=== PATIENT | female | born 1960 | race Caucasian/White ===

== ENCOUNTER → 2017-06-24 08:39 | Outpatient (CLI) | payer OTHER, SELFPAY | PROVIDERS: PCP Nurse Practitioner Primary Care; Visit Provider Internal Medicine Pulmonary Disease | DX: J44.9 Chronic obstructive pulmonary disease, unspecified (principal) | CPT/HCPCS: 87070; 87077; 87102; 87205; 87206 ==

== ENCOUNTER → 2017-07-27 15:34 | Outpatient (CLI) | payer OTHER, SELFPAY ==
--- NOTE | 2017-07-27 15:37 | RAD_ITS ---
STUDY: X-RAY CHEST REASON FOR EXAM: Female, 56 years old. COPD TECHNIQUE: PA and lateral views of the chest. COMPARISON: None. FINDINGS: There is hyperinflation of the lungs consistent with chronic obstructive lung disease (COPD). There is no demonstrated pleural abnormality. Normal size heart. Normal mediastinum and elizabeth. Normal visualized pulmonary arteries. There is mild calcification of the aortic arch. There are diffuse degenerative changes of the visualized thoracic spine. Normal visualized ribs, clavicles, and shoulders. There is no demonstrated abnormality of the visualized soft tissue structures of the upper abdomen. RAD/Chest PA and Lateral IMPRESSION: COPD. No focal consolidation. Electronically Signed: Shayne Mckoy DO at 15:42 EDT Tel , Service support ,
== END ==
PROVIDERS: PCP Nurse Practitioner Primary Care; Visit Provider Internal Medicine Pulmonary Disease
DX: J44.9 Chronic obstructive pulmonary disease, unspecified (principal)
CPT/HCPCS: 71046

== ENCOUNTER → 2017-10-18 18:43 | Outpatient (CLI) | payer OTHER, SELFPAY ==
--- NOTE | 2017-10-18 18:45 | CT_ITS ---
STUDY: LOW DOSE CT LUNG CANCER SCREENING REASON FOR EXAM: Female, 56 years old. 45 pack-year smoker. Recently quit. RADIATION DOSAGE (If Supplied By Facility): CTDIvol = ( 4.02 ) mGy, DLP = ( 144.96 ) mGycm TECHNIQUE: No contrast was administered. Low dose technique was utilized (average mAS-38 and kVp 120). 1.25 mm axial source images with a slice interval of 1.25-mm were reconstructed in lung windows. 2.5 mm axial source images with a slice interval of 2.5-mm were reconstructed in lung windows. 5.0 mm axial source images with a slice interval of 5.0-mm were reconstructed in soft tissue windows. Nodule measured using lung windows on PACS and/or independent workstation with automated measurement of minimum and maximum diameter. Nodule measurement reported as average diameter rounded to the nearest whole number. Growth is defined as an increase ins size of greater than 1.5 mm. COMPARISON: None. NODULES: No significant nodular density seen. Emphysema: Hyperinflation. Mild increased markings in the anterior aspect of the right upper lobe as well as the medial aspect of the right middle lobe suggestive of scarring. Aorta: Scattered atherosclerotic calcific plaques of the aortic arch and descending thoracic aorta. Coronary arteries: Coronary artery calcification. Heart: Not enlarged. Mediastinal nodes: Small benign-appearing mediastinal lymph nodes. Other chest and abdominal findings: CT/Low Dose CT Lung Screening IMPRESSION: Lung-RADS category 2 - Continue annual screening with LDCT in 12 months. IMPORTANT NOTES FOR USE: ACR Lung-RADS Version 1.0 Assessment Categories Release Date: August 19, 2013 Category: Coded 0-4 bases on nodule(s) with highest degree of suspicion. Negative screen is defined as categories 1 and 2; a positive screen is defined as categories 3 and 4. Category 3 and 4A nodules that are unchanged on interval CT should be coded as category 2, and individuals returned to screening in 12 months. Category 4X: Category 3 or 4 nodules with additional imaging findings that increase the suspicion of lung cancer, such as spiculation, GGN that doubles in size in 1 year, enlarged lymph notes, etc. Category Modifiers: S (significant finding unrelated to lung cancer) and C (prior history of treated lung cancer) may be added to the 0-4 Lung-RADS Electronically Signed: Nathan Olivas MD at 8:25 EDT Tel [phone], Service support ,
== END ==
PROVIDERS: PCP Nurse Practitioner Primary Care; Visit Provider Internal Medicine Pulmonary Disease
DX: Z12.2 Encounter for screening for malignant neoplasm of respiratory organs (principal); Z87.891 Personal history of nicotine dependence
CPT/HCPCS: G0297

== ENCOUNTER 2018-01-15 14:30 | Outpatient (RCR) | payer OTHER, SELFPAY ==
[2018-01-02 08:31] VITALS: BP 128/64; PULSE 87; RESP 20; TEMP 36.2; BMI 46.1
--- NOTE | 2018-01-02 09:53 | PCM.WC.HP ---
(1) Traumatic open wound of lower leg Status: Acute Current Visit: Yes Qualifiers: Encounter type: initial encounter Code(s): S81.809A - Unspecified open wound, unspecified lower leg, initial encounter (2) Leg swelling Status: Chronic Current Visit: Yes Code(s): M79.89 - Other specified soft tissue disorders (3) Edema of leg Status: Chronic Current Visit: Yes Code(s): R60.0 - Localized edema (4) Diabetes mellitus Status: Chronic Current Visit: Yes Qualifiers: Diabetes mellitus type: type 2 Code(s): E11.9 - Type 2 diabetes mellitus without complications (5) Morbid obesity with BMI of 45.0-49.9, adult Status: Chronic Current Visit: No Code(s): E66.01 - Morbid (severe) obesity due to excess calories; Z68.42 - Body mass index (BMI) 45.0-49.9, adult (6) COPD (chronic obstructive pulmonary disease) Status: Chronic Current Visit: No Code(s): J44.9 - Chronic obstructive pulmonary disease, unspecified (7) Coronary artery arteriosclerosis Status: Chronic Current Visit: No Code(s): I25.10 - Atherosclerotic heart disease of [place] coronary artery without angina pectoris History of Present Illness Date of Service: 01/02/18 Chief Complaint: Traumatic open wound of the left lower extremity History of Wound: This is a 57-year-old diabetic female who was in her normal state of health until approximately 2 months ago. At that time, she sustained trauma to the anterolateral aspect of the left calf, striking her leg against the bed frame. A wound resulted, which has failed to heal in normal fashion. She subsequently struck her leg against the bed frame a second time, again injuring the left lower extremity in the same location. She claims to have chronic swelling in the left lower extremity, that precedes her current injury. She sleeps in a recumbent position at night. 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 Past Medical History Past Medical History: Chronic Problems Leg swelling (Chronic) Edema of leg (Chronic) Diabetes mellitus (Chronic) Morbid obesity with BMI of 45.0-49.9, adult (Chronic) COPD (chronic obstructive pulmonary disease) (Chronic) Coronary artery arteriosclerosis (Chronic) Past Medical History: The patient has a history of morbid obesity. She is diabetic. She has a history of chronic obstructive pulmonary disease. She also has a history of myocardial infarction in 2010, has had a coronary artery stent placed previously. Her history is negative for cancer, renal disease, thyroid disease, hyperlipidemia, and hypertension. Surgical History: - - The patient has a history of coronary artery stent placement. She has undergone open reduction and internal fixation of a left tibia fracture. She underwent right meniscus repair in the past. She is a Ab0. Allergies/Adverse Reactions: Allergies No Known Allergies Allergy (Verified 09/03/13 11:12) Home Medications: Ambulatory Orders Medication Instructions Recorded Aspirin E.C. [Ecotrin] 81 mg PO DAILY@0800 09/03/13 Hydrocodone/Acetaminophen [Vicodin 1 - 2 tablet PO Q6H PRN PRN 09/03/13 5-300 mg Tablet] Lisinopril [Lisinopril] 10 mg PO DAILY 09/03/13 Metformin [Metformin HCl] 1,000 mg PO BID 09/03/13 Metoprolol Tartrate [Metoprolol 50 mg PO DAILY 09/03/13 Tartrate] Dulaglutide [Trulicity] 0.75 mg SQ 01/02/18 Fluticasone/Vilanterol [Breo 1 each IH 01/02/18 Ellipta 200-25 Mcg INH] Insulin Glargine,Hum.rec.anlog 56 unit BID 01/02/18 [Lantus] Sitagliptin Phosphate [Januvia] 25 mg PO DAILY 01/02/18 Tiotropium [place] [Spiriva] 18 mcg IH 01/02/18 - Family History Paternal - - The patient's father at the age of 78 with history of chronic obstructive pulmonary disease. The patient's mother at the age of 84 with history of chronic obstructive pulmonary disease. Social History: Patient is single. She denies the use of tobacco products. She consumes alcoholic beverages occasionally. 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 Smoking Status: Former smoker Tobacco Use: Non-smoker Alcohol: Occasional Drugs: None Review of Systems Constitutional: Denies: Chills, Fever, Weight Change Eyes: Denies: Pain, Vision Change HEENT: Denies: Difficulty Hearing, Difficulty Swallowing, Sinus Congestion Cardiovascular: Denies: Chest Pain, Palpitations Respiratory: Denies: Cough, Shortness of Breath Gastrointestinal: Denies: Diarrhea, Nausea, Vomiting Genitourinary: Denies: Dysuria, Hematuria Endocrine: Denies: Heat/ Cold Intolerance, Polydipsia, Polyuria Hematologic/ Lymphatic: Denies: Easy Bruising, Easy Bleeding - Physical Exam Vital Signs Temp Pulse Resp BP 97.1 F L 87 20 H 128/64 H 01/02/18 08:31 18 08:31 18 08:31 01/02/18 08:31 General: Alert, Oriented x3, Cooperative, No apparent distress, Well developed, Well nourished, - - The patient appears morbidly obese HEENT: Atraumatic, PERRLA, EOMI, Normocephalic Oral: Moist Mucosa Neck: Supple, No JVD, Negative Carotid Bruits, Negative Hepatojugular Reflux, No Nodes, No Nuchal Rigidity, Trachea Midline Lungs: Clear to auscultation, Normal air movement, No rhonchi, No wheeze, No rales Cardiovascular: Regular rate, Regular Rhythm, Normal S1, Normal S2, No murmurs, No Ectopic Activity Abdomen: Soft, Non Tender, Non-Distended, Obese Extremities: No clubbing, No cyanosis, No edema, No Calf Tenderness, - - An open wound is noted on the anterolateral aspect of the left calf. It is circular in shape, with significant depth. Dimensions are documented elsewhere. The base of the wound is necrotic and with large amount of bioburden. Slight periwound erythema is noted. Swab cultures have been obtained, for both aerobic and anaerobic bacterial growth. Wound Measurements and Assessment WC - Nurse 1 - General Ulcer Measurement Start: 01/02/18 08:27 Freq: Status: Active Protocol: Activity Type Activity Date Activity User E-Sign Co-Sign Detail Recorded Client Recorded Date Recorded By Document 01/02/18 08:31 DL [id number] 01/02/18 08:55 DL 01/02/18 08:31 Wound Center Nurse 1 [Ulcer Assessment] #1 L Vaz -Current Size (cm) - Length 1.6 -Current Size (cm) - Width 1.8 -Current Size (cm) - Depth 0.6 -Total Square Cm 2.88 -Photo Taken Yes -Exudate Amt Medium (34-66%) -Exudate Type Serosanguineous -Wound Margin Distinct, Outline Attached -Granulation Amt None Present (0 %) -Slough/Fibrin No -Necrosis Amt Large (67-100%) -Necrotic Tissue Type Adherent Slough -Structure Exposed N/A -Texture (Ketty-wound Skin Appearance) Localized Edema -Moisture (Ketty-wound Skin Appearance No Abnormality ) -Color (Ketty-wound Skin Appearance) Hemosiderin Staining -Temperature (Ketty-wound Skin No Abnormality Appearance) (Pt Warm) -Ulcer Cleansing Wound Cleanser -Foul Odor after Cleansing No -Anesthetic Used 4% Lidocaine Solution [Edema Assessment] -Right Calf (cm) 41 -Right Ankle (cm) 24.3 -Left Calf (cm) 43.5 -Left Ankle (cm) 24 Musculoskeletal: No Muscle Wasting Neurological: Cranial nerves II-XII grossly intact, Neuro grossly intact Psych/Mental Status: Normal Affect, Appropriate, Alert and oriented to time, place, person, mood and affect Debridement Note Laterality: Left - Anterolateral calf Type of Debridement: Excisional debridement Anesthesia Used: 4% Lidocaine Solution Depth: Down to and including healthy tissue, in the subcutaneous layer Percentage of wound debrided: 100 Instrument Used: 5mm curette Severity: Fat Layer Exposed Amount of bleeding with debridement: Mild Bleeding Controlled with: Compression and gauze Patient tolerated procedure well Assessment/Plan Active Problems Traumatic open wound of lower leg (Acute) Leg swelling (Chronic) Edema of leg (Chronic) Diabetes mellitus (Chronic) Assessment: This is a 57-year-old female who presents with a traumatic wound on the anterolateral aspect of the left calf. The injury occurred approximately 2 months ago, and has failed to heal appropriately. The patient presents now with ralph, nonviable tissue within the wound itself. She is known to be a diabetic. Plan: We are to implement the use of collagenase Santyl topically, to provide enzymatic debridement. An excisional debridement has been performed today. The patient is to be instructed in the appropriate means of applying collagenase Santyl, and we will also use Nu Gauze to gently pack the wound daily as well. We are to obtain routine laboratory studies, including a CBC, conference of metabolic profile, serum prealbumin, and a hemoglobin A1c. A noninvasive lower extremity arterial study will also be obtained. We will await culture results. Patient will return in 1 week for reassessment. Influenza vaccine was not administered today. The patient is not a smoker. Patient weighs 265 pounds. She stands 5 feet 4 inches tall. Her BMI is 45.5, which places her in a class III category. Weight loss has been recommended, and collaboration with the patient's primary care physician has been recommended.
[2018-01-08 14:38] VITALS: BP 149/68; PULSE 106; RESP 18; TEMP 36.7; BMI 46.1
--- NOTE | 2018-01-08 15:30 | HP.PCM_ITS ---
(1) Traumatic open wound of lower leg Status: Acute Current Visit: Yes Qualifiers: Encounter type: subsequent encounter Code(s): S81.809A - Unspecified open wound, unspecified lower leg, initial encounter (2) Leg swelling Status: Chronic Current Visit: Yes Code(s): M79.89 - Other specified soft tissue disorders (3) Edema of leg Status: Chronic Current Visit: Yes Code(s): R60.0 - Localized edema (4) Diabetes mellitus Status: Chronic Current Visit: Yes Qualifiers: Diabetes mellitus type: type 2 Code(s): E11.9 - Type 2 diabetes mellitus without complications (5) Morbid obesity with BMI of 45.0-49.9, adult Status: Chronic Current Visit: No Code(s): E66.01 - Morbid (severe) obesity due to excess calories; Z68.42 - Body mass index (BMI) 45.0-49.9, adult (6) COPD (chronic obstructive pulmonary disease) Status: Chronic Current Visit: No Code(s): J44.9 - Chronic obstructive pulmonary disease, unspecified (7) Coronary artery arteriosclerosis Status: Chronic Current Visit: No Code(s): I25.10 - Atherosclerotic heart disease of [place] coronary artery without angina pectoris History of Present Illness Date of Service: 01/08/18 Chief Complaint: Traumatic open wound of the left lower extremity History of Wound: This is a 57-year-old diabetic female who was in her normal state of health until approximately 2 months prior to presentation. At that time, she sustained trauma to the anterolateral aspect of the left calf, striking her leg against the bed frame. A wound resulted, which has failed to heal in normal fashion. She subsequently struck her leg against the bed frame a second time, again injuring the left lower extremity in the same location. She claims to have chronic swelling in the left lower extremity, that precedes her current injury. She sleeps in a recumbent position at night. 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 Past Medical History Past Medical History: Chronic Problems Leg swelling (Chronic) Edema of leg (Chronic) Diabetes mellitus (Chronic) Morbid obesity with BMI of 45.0-49.9, adult (Chronic) COPD (chronic obstructive pulmonary disease) (Chronic) Coronary artery arteriosclerosis (Chronic) Surgical History: - - The patient has a history of coronary artery stent placement. She has undergone open reduction and internal fixation of a left tibia fracture. She underwent right meniscus repair in the past. She is a Ab0. Allergies/Adverse Reactions: Allergies No Known Allergies Allergy (Verified 09/03/13 11:12) Home Medications: Ambulatory Orders Medication Instructions Recorded Aspirin E.C. [Ecotrin] 81 mg PO DAILY@0800 09/03/13 Hydrocodone/Acetaminophen [Vicodin 1 - 2 tablet PO Q6H PRN PRN 09/03/13 5-300 mg Tablet] Lisinopril [Lisinopril] 10 mg PO DAILY 09/03/13 Metformin [Metformin HCl] 1,000 mg PO BID 09/03/13 Metoprolol Tartrate [Metoprolol 50 mg PO DAILY 09/03/13 Tartrate] Dulaglutide [Trulicity] 0.75 mg SQ 01/02/18 Fluticasone/Vilanterol [Breo 1 each IH 01/02/18 Ellipta 200-25 Mcg INH] Insulin Glargine,Hum.rec.anlog 56 unit BID 01/02/18 [Lantus] Sitagliptin Phosphate [Januvia] 25 mg PO DAILY 01/02/18 Tiotropium [place] [Spiriva] 18 mcg IH 01/02/18 - Family History Paternal - - The patient's father at the age of 78 with history of chronic obstructive pulmonary disease. The patient's mother at the age of 84 with history of chronic obstructive pulmonary disease. Smoking Status: Former smoker Tobacco Use: Non-smoker Alcohol: Occasional Drugs: None Review of Systems Constitutional: Denies: Chills, Fever, Weight Change Eyes: Denies: Pain, Vision Change HEENT: Denies: Difficulty Hearing, Difficulty Swallowing, Sinus Congestion Cardiovascular: Denies: Chest Pain, Palpitations Respiratory: Denies: Cough, Shortness of Breath Gastrointestinal: Denies: Diarrhea, Nausea, Vomiting Genitourinary: Denies: Dysuria, Hematuria Endocrine: Denies: Heat/ Cold Intolerance, Polydipsia, Polyuria Hematologic/ Lymphatic: Denies: Easy Bruising, Easy Bleeding - Physical Exam Vital Signs Temp Pulse Resp BP 98.0 F 106 H 18 149/68 H 01/08/18 14:38 01/08/18 14:38 01/08/18 14:38 01/08/18 14:38 General: Alert, Oriented x3, Cooperative, No apparent distress, Well developed, Well nourished HEENT: Atraumatic, PERRLA, EOMI, Normocephalic Oral: Moist Mucosa Neck: No JVD Lungs: Normal air movement Abdomen: Non-Distended Extremities: No clubbing, No cyanosis, No Calf Tenderness, - - Mild swelling and edema are noted in the left lower extremity. The traumatic wound on the anterolateral aspect of the left calf persists, and is little changed in size. The wound itself demonstrates less nonviable tissue and bioburden. There is evidence of granulation tissue in a small portion of the wound, which was not previously evident. Dimensions are documented elsewhere. Skin: No rashes Wound Measurements and Assessment WC - Nurse 1 - General Ulcer Measurement Start: 01/02/18 08:27 Freq: Status: Active Protocol: Activity Type Activity Date Activity User E-Sign Co-Sign Detail Recorded Client Recorded Date Recorded By Document 01/08/18 14:38 [id number] 01/08/18 14:43 01/08/18 14:38 Wound Center Nurse 1 [Ulcer Assessment] #1 L Vaz -Combined with other wound No -Current Size (cm) - Length 1.6 -Current Size (cm) - Width 2.1 -Current Size (cm) - Depth 0.4 -Total Square Cm 3.36 -Photo Taken No -Epithelialization Small 1-33% -Tunneling No -Undermining/Tunneling No -Circular Undermining No -Exudate Amt Medium (34-66%) -Exudate Type Serosanguineous -Wound Margin Flat & Intact -Granulation Amt Small (1-33%) -Granulation Quality Pale [place] -Slough/Fibrin Yes -Necrosis Amt Medium (34-66%) -Necrotic Tissue Type Adherent Slough -Structure Exposed N/A -Texture (Ketty-wound Skin Appearance) Assessed Localized Edema -Moisture (Ketty-wound Skin Appearance Assessed ) Dry/Scaly -Color (Ketty-wound Skin Appearance) Assessed -Temperature (Ketty-wound Skin No Abnormality Appearance) (Pt Warm) -Tenderness on Palpation (Ketty-wound No Skin Appearance) -Ulcer Cleansing Rinsed/ Irrigated with Saline -Foul Odor after Cleansing No -Anesthetic Used 4% Lidocaine Solution [Edema Assessment] -Lower Limb Edema Present Yes -Left Calf (cm) 43.9 -Left Ankle (cm) 24.3 - Nurse 2 - General Ulcer CM Notes Start: 01/02/18 08:27 Freq: Status: Active Protocol: Activity Type Activity Date Activity User E-Sign Co-Sign Detail Recorded Client Recorded Date Recorded By Document 01/08/18 15:02 [id number] 01/08/18 15:05 01/08/18 15:02 Wound Center Nurse 2 [Procedure/Treatment] #1 L Vaz -Time 15:02 -Correct Patient Yes -Correct Side, Site, Position Yes -Correct Procedure Yes -Procedure Performed Yes -Type of Procedure Debridement -Clinical Debridement Subcutaneous -Post Debridement Size (cm) - Length 1.6 -Post Debridement Size (cm) - Width 2.1 -Post Debridement Size (cm) - Depth 0.4 -Total Square Cm 3.36 -Wound/Ulcer Outcome Not Healed -Ulcer Cleansing Not Cleansed -Foul Odor after Cleansing No -Bioengineered Tissue No -Bleeding Controlled with Pressure -Treatment Response Procedure Tolerated Well [See Physician Procedure note for Specifics] Pain Scale: 0-10 Numeric [Pain] -Is Patient Pain Free? No Musculoskeletal: No Muscle Wasting Neurological: Cranial nerves II-XII grossly intact, Neuro grossly intact Psych/Mental Status: Normal Affect, Appropriate, Alert and oriented to time, place, person, mood and affect Debridement Note Post-Debridement Measurements/Treatment - Nurse 2 - General Ulcer CM Notes Start: 01/02/18 08:27 Freq: Status: Active Protocol: Activity Type Activity Date Activity User E-Sign Co-Sign Detail Recorded Client Recorded Date Recorded By Document 01/02/18 09:55 [id number] 01/02/18 09:59 Document 01/08/18 15:02 [id number] 01/08/18 15:05 01/02/18 01/08/18 09:55 15:02 Wound Center Nurse 2 #1 L Vaz -Time 09:55 15:02 -Correct Patient Yes Yes -Correct Side, Site, Position Yes Yes -Correct Procedure Yes Yes -Procedure Performed Yes Yes -Type of Procedure Debridement Debridement -Clinical Debridement Subcutaneous Subcutaneous -Post Debridement Size (cm) - Length 1.7 1.6 -Post Debridement Size (cm) - Width 2.1 2.1 -Post Debridement Size (cm) - Depth 0.5 0.4 -Total Square Cm 3.57 3.36 -Wound/Ulcer Outcome Not Healed Not Healed -Ulcer Cleansing Rinsed/ Not Cleansed Irrigated with Saline -Foul Odor after Cleansing No No -Bioengineered Tissue No No -Topical Lidocaine (%) 5 -Bleeding Controlled with NA Pressure -Treatment Response Procedure Procedure Tolerated Well Tolerated Well Pain Scale: 0-10 Numeric Is Patient Pain Free? Yes No Laterality: Left - Anterolateral calf Type of Debridement: Excisional debridement Anesthesia Used: 4% Lidocaine Solution Depth: Down to and including healthy tissue, in the subcutaneous layer Percentage of wound debrided: 100 Instrument Used: 7mm curette Severity: Fat Layer Exposed Amount of bleeding with debridement: Mild Bleeding Controlled with: Compression and gauze Patient tolerated procedure well Assessment/Plan Active Problems Traumatic open wound of lower leg (Acute) Leg swelling (Chronic) Edema of leg (Chronic) Diabetes mellitus (Chronic) Assessment: This is a 57-year-old female who presents with a traumatic wound on the anterolateral aspect of the left calf. The injury occurred approximately 2 months prior to presentation, and has failed to heal appropriately. The patient presented with ralph, nonviable tissue within the wound itself. She is known to be a diabetic. Patient has undergone a battery of diagnostic tests, with results as follows: Glucose 150, sodium 140, potassium 4.8, chloride 103, BUN 15, creatinine 0.80, calcium 9.5, total protein 6.7, albumin 3.9, alkaline phosphatase 61, AST 20, ALT 35, hemoglobin A1c 8.3, white blood count 6.2, hemoglobin 14.2, hematocrit 41.1, platelets 253,000. The patient's cultures were positive for Klebsiella pneumonia, pseudomonas aeruginosa, and Streptococcus. She was placed on Levaquin 750 mg p.o. daily for a total of 10 days, and is in the midst of her prescription. Plan: We are to continue the use of collagenase Santyl topically, to provide enzymatic debridement. An excisional debridement has been performed today. The patient has been instructed in the appropriate means of applying collagenase Santyl, and we will also use Nu Gauze to gently pack the wound daily as well. A noninvasive lower extremity arterial study will also be obtained, and is scheduled for 1 week from today. Patient will return in 1 week for reassessment. Influenza vaccine was not administered today. The patient is not a smoker. Patient weighs 265 pounds. She stands 5 feet 4 inches tall. Her BMI is 45.5, which places her in a class III category. Weight loss has been recommended, and collaboration with the patient's primary care physician has been recommended.
--- NOTE | 2018-01-15 07:49 | VDLE_ITS ---
Reason For Study: PVD RIGHT LEFT FV is compressible, spontaneous, phasic, POP V is compressible, spontaneous, phasic, competent and demonstrates normal competent and demonstrates normal augmentation. augmentation. POP V is compressible, spontaneous, phasic, T/P Trunk is compressible. competent and demonstrates normal PTV is compressible. augmentation. LT PerV is compressible. T/P Trunk is compressible. CFV, SFJ and FV spontaneous, phasic, PTV is compressible. competent and demonstrates normal RT PerV is compressible. augmentation. Pt unable to tolerate CFV and SFJ spontaneous, phasic, competent compression; relied on color and pulsed and demonstrates normal augmentation. Pt doppler. unable to tolerate compression; relied on color and pulsed doppler. SFJ is competent. GSV above knee is competent. SFJ is competent. GSV below the knee is incompetent for GSV is competent. greater than 0.5 seconds with a diameter of SSV is competent. 0.28 x 0.30 cm. Procedure SSV is competent. Exam performed in department. A preliminary report was called and/or faxed to . Interpretation Summary Deep veins of the lower extremities appear patent bilaterally. There is no evidence of deep vein thrombosis on either side. Valvular competence appears intact within the proximal deep venous systems bilaterally. The greater saphenous veins appear bilaterally patent and compressible segmentally. Sapheno-femoral junctions are bilaterally competent . The right greater saphenous vein appears segmentally competent. The left greater saphenous vein appears competent above the knee. The left greater saphenous vein appears incompetent below the knee. Small saphenous veins are patent and competent bilaterally. Ordering Physician: Xavier Acuña Performed By: Felecia Guzman RVT, RDCS and Student
[2018-01-15 14:25] VITALS: BP 129/79; PULSE 101; RESP 18; TEMP 35.9; BMI 46.1
--- NOTE | 2018-01-15 15:01 | PCM.WC.HP ---
(1) Traumatic open wound of lower leg Status: Acute Current Visit: Yes Qualifiers: Encounter type: subsequent encounter Laterality: left Qualified Code(s): S81.802D - Unspecified open wound, left lower leg, subsequent encounter Code(s): S81.809A - Unspecified open wound, unspecified lower leg, initial encounter (2) Leg swelling Status: Chronic Current Visit: Yes Code(s): M79.89 - Other specified soft tissue disorders (3) Edema of leg Status: Chronic Current Visit: Yes Code(s): R60.0 - Localized edema (4) Diabetes mellitus Status: Chronic Current Visit: Yes Qualifiers: Diabetes mellitus type: type 2 Code(s): E11.9 - Type 2 diabetes mellitus without complications (5) Morbid obesity with BMI of 45.0-49.9, adult Status: Chronic Current Visit: No Code(s): E66.01 - Morbid (severe) obesity due to excess calories; Z68.42 - Body mass index (BMI) 45.0-49.9, adult (6) COPD (chronic obstructive pulmonary disease) Status: Chronic Current Visit: No Code(s): J44.9 - Chronic obstructive pulmonary disease, unspecified (7) Coronary artery arteriosclerosis Status: Chronic Current Visit: No Code(s): I25.10 - Atherosclerotic heart disease of circle coronary artery without angina pectoris History of Present Illness Date of Service: 01/15/18 Chief Complaint: Traumatic open wound of the left lower extremity History of Wound: This is a 57-year-old diabetic female who was in her normal state of health until approximately 2 months prior to presentation. At that time, she sustained trauma to the anterolateral aspect of the left calf, striking her leg against the bed frame. A wound resulted, which has failed to heal in normal fashion. She subsequently struck her leg against the bed frame a second time, again injuring the left lower extremity in the same location. She claims to have chronic swelling in the left lower extremity, that precedes her current injury. She sleeps in a recumbent position at night. 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 Past Medical History Past Medical History: Chronic Problems Leg swelling (Chronic) Edema of leg (Chronic) Diabetes mellitus (Chronic) Morbid obesity with BMI of 45.0-49.9, adult (Chronic) COPD (chronic obstructive pulmonary disease) (Chronic) Coronary artery arteriosclerosis (Chronic) Surgical History: - - The patient has a history of coronary artery stent placement. She has undergone open reduction and internal fixation of a left tibia fracture. She underwent right meniscus repair in the past. She is a Ab0. Allergies/Adverse Reactions: Allergies No Known Allergies Allergy (Verified 09/03/13 11:12) Home Medications: Ambulatory Orders Medication Instructions Recorded Aspirin E.C. [Ecotrin] 81 mg PO DAILY@0800 09/03/13 Hydrocodone/Acetaminophen [Vicodin 1 - 2 tablet PO Q6H PRN PRN 09/03/13 5-300 mg Tablet] Lisinopril [Lisinopril] 10 mg PO DAILY 09/03/13 Metformin [Metformin HCl] 1,000 mg PO BID 09/03/13 Metoprolol Tartrate [Metoprolol 50 mg PO DAILY 09/03/13 Tartrate] Dulaglutide [Trulicity] 0.75 mg SQ 01/02/18 Fluticasone/Vilanterol [Breo 1 each IH 01/02/18 Ellipta 200-25 Mcg INH] Insulin Glargine,Hum.rec.anlog 56 unit BID 01/02/18 [Lantus] Sitagliptin Phosphate [Januvia] 25 mg PO DAILY 01/02/18 Tiotropium [place] [Spiriva] 18 mcg IH 01/02/18 - Family History Paternal - - The patient's father at the age of 78 with history of chronic obstructive pulmonary disease. The patient's mother at the age of 84 with history of chronic obstructive pulmonary disease. Smoking Status: Former smoker Tobacco Use: Non-smoker Alcohol: Occasional Drugs: None Review of Systems Constitutional: Denies: Chills, Fever, Weight Change Eyes: Denies: Pain, Vision Change HEENT: Denies: Difficulty Hearing, Difficulty Swallowing, Sinus Congestion Cardiovascular: Denies: Chest Pain, Palpitations Respiratory: Denies: Cough, Shortness of Breath Gastrointestinal: Denies: Diarrhea, Nausea, Vomiting Genitourinary: Denies: Dysuria, Hematuria Endocrine: Denies: Heat/ Cold Intolerance, Polydipsia, Polyuria Hematologic/ Lymphatic: Denies: Easy Bruising, Easy Bleeding - Physical Exam Vital Signs Temp Pulse Resp BP 96.7 F L 101 H 18 129/79 H 01/15/18 14:25 01/15/18 14:25 01/15/18 14:25 01/15/18 14:25 General: Alert, Oriented x3, Cooperative, No apparent distress, Well developed, Well nourished HEENT: Atraumatic, PERRLA, EOMI, Normocephalic Oral: Moist Mucosa Neck: No JVD Lungs: Normal air movement Abdomen: Non-Distended Extremities: No clubbing, No cyanosis, No Calf Tenderness, - - Only slight swelling and edema is noted in the lower extremities bilaterally. The traumatic wound on the left anterolateral tibial surface persists, little changed in size. There is evidence of increasing granulation tissue. Nonetheless, there remains a significant amount of nonviable tissue and bioburden. There is no obvious sign of infection or cellulitis. Wound dimensions are documented elsewhere. Skin: No rashes Wound Measurements and Assessment WC - Nurse 1 - General Ulcer Measurement Start: 01/02/18 08:27 Freq: Status: Active Protocol: Activity Type Activity Date Activity User E-Sign Co-Sign Detail Recorded Client Recorded Date Recorded By Document 01/15/18 14:25 DL [id number] 01/15/18 14:32 DL 01/15/18 14:25 Wound Center Nurse 1 [Ulcer Assessment] #1 L Vaz -Current Size (cm) - Length 1.6 -Current Size (cm) - Width 2 -Current Size (cm) - Depth 0.4 -Total Square Cm 3.2 -Photo Taken No -Exudate Amt Small (1-33%) -Exudate Type Serosanguineous -Wound Margin Distinct, Outline Attached -Granulation Amt Medium (34-66%) -Granulation Quality Red -Necrosis Amt Medium (34-66%) -Necrotic Tissue Type Adherent Slough -Structure Exposed N/A -Texture (Ketty-wound Skin Appearance) No Abnormality -Moisture (Ketty-wound Skin Appearance No Abnormality ) -Color (Ketty-wound Skin Appearance) No Abnormality -Temperature (Ketty-wound Skin No Abnormality Appearance) (Pt Warm) -Ulcer Cleansing Rinsed/ Irrigated with Saline -Foul Odor after Cleansing No -Anesthetic Used 5% Lidocaine Gel [Edema Assessment] -Left Calf (cm) 43.8 -Left Ankle (cm) 24 WC - Nurse 2 - General Ulcer CM Notes Start: 01/02/18 08:27 Freq: Status: Active Protocol: Activity Type Activity Date Activity User E-Sign Co-Sign Detail Recorded Client Recorded Date Recorded By Document 01/15/18 14:47 [id number] 01/15/18 14:57 01/15/18 14:47 Wound Center Nurse 2 [Procedure/Treatment] #1 L Vaz -Time 14:47 -Correct Patient Yes -Correct Side, Site, Position Yes -Correct Procedure Yes -Procedure Performed Yes -Type of Procedure Debridement -Clinical Debridement Subcutaneous -Post Debridement Size (cm) - Length 1.9 -Post Debridement Size (cm) - Width 2.2 -Post Debridement Size (cm) - Depth 0.5 -Total Square Cm 4.18 -Wound/Ulcer Outcome Not Healed -Ulcer Cleansing Rinsed/ Irrigated with Saline -Foul Odor after Cleansing No -Bioengineered Tissue No -Topical Lidocaine (%) 5 -Bleeding Controlled with NA -Treatment Response Procedure Tolerated Well [See Physician Procedure note for Specifics] Pain Scale: 0-10 Numeric [Pain] -Is Patient Pain Free? Yes Musculoskeletal: No Muscle Wasting Neurological: Cranial nerves II-XII grossly intact, Neuro grossly intact Psych/Mental Status: Normal Affect, Appropriate, Alert and oriented to time, place, person, mood and affect Debridement Note Post-Debridement Measurements/Treatment WC - Nurse 2 - General Ulcer CM Notes Start: 01/02/18 08:27 Freq: Status: Active Protocol: Activity Type Activity Date Activity User E-Sign Co-Sign Detail Recorded Client Recorded Date Recorded By Document 01/02/18 09:55 [id number] 01/02/18 09:59 Document 01/08/18 15:02 [id number] 01/08/18 15:05 Document 01/15/18 14:47 [id number] 01/15/18 14:57 01/02/18 01/08/18 01/15/18 09:55 15:02 14:47 Wound Center Nurse 2 #1 L Vaz -Time 09:55 15:02 14:47 -Correct Patient Yes Yes Yes -Correct Side, Site, Position Yes Yes Yes -Correct Procedure Yes Yes Yes -Procedure Performed Yes Yes Yes -Type of Procedure Debridement Debridement Debridement -Clinical Debridement Subcutaneous Subcutaneous Subcutaneous -Post Debridement Size (cm) - Length 1.7 1.6 1.9 -Post Debridement Size (cm) - Width 2.1 2.1 2.2 -Post Debridement Size (cm) - Depth 0.5 0.4 0.5 -Total Square Cm 3.57 3.36 4.18 -Wound/Ulcer Outcome Not Healed Not Healed Not Healed -Ulcer Cleansing Rinsed/ Not Cleansed Rinsed/ Irrigated with Irrigated with Saline Saline -Foul Odor after Cleansing No No No -Bioengineered Tissue No No No -Topical Lidocaine (%) 5 5 -Bleeding Controlled with NA Pressure NA -Treatment Response Procedure Procedure Procedure Tolerated Well Tolerated Well Tolerated Well Pain Scale: 0-10 Numeric Is Patient Pain Free? Yes No Yes Laterality: Left - Anterolateral tibial surface Type of Debridement: Excisional debridement Anesthesia Used: 4% Lidocaine Solution Depth: Down to and including healthy tissue, in the subcutaneous layer Percentage of wound debrided: 100 Instrument Used: 7mm curette Severity: Fat Layer Exposed Amount of bleeding with debridement: Mild Bleeding Controlled with: Compression and gauze Patient tolerated procedure well Assessment/Plan Active Problems Traumatic open wound of lower leg (Acute) Leg swelling (Chronic) Edema of leg (Chronic) Diabetes mellitus (Chronic) Assessment: This is a 57-year-old female who presents with a traumatic wound on the anterolateral aspect of the left calf. The injury occurred approximately 2 months prior to presentation, and has failed to heal appropriately. The patient presented with ralph, nonviable tissue within the wound itself. She is known to be a diabetic. Patient has undergone a battery of diagnostic tests, with results as follows: Glucose 150, sodium 140, potassium 4.8, chloride 103, BUN 15, creatinine 0.80, calcium 9.5, total protein 6.7, albumin 3.9, alkaline phosphatase 61, AST 20, ALT 35, hemoglobin A1c 8.3, white blood count 6.2, hemoglobin 14.2, hematocrit 41.1, platelets 253,000. The patient's cultures were positive for Klebsiella pneumonia, pseudomonas aeruginosa, and Streptococcus. She was placed on Levaquin 750 mg p.o. daily for a total of 10 days, and has now completed her course. A noninvasive lower extremity arterial study is normal, revealing triphasic waveforms at ankle level bilaterally, normal resting anklebrachial indices bilaterally, and normal digital-brachial indices bilaterally. Plan: We are to continue the use of collagenase Santyl topically, to provide enzymatic debridement. An excisional debridement has been performed today, and will continue on a weekly basis. The patient has been instructed in the appropriate means of applying collagenase Santyl, and we will also use Nu Gauze to gently pack the wound daily as well. A noninvasive lower extremity arterial study is normal. We will now implement the use of SurePress wrap to the left lower extremity to assist in the control of swelling and edema. The patient has been encouraged to assure adequate nutrition. Optimizing glycemic control has also been advised. The patient will be vacationing in [place] next week, and will therefore return in 2 weeks for reassessment. Influenza vaccine was not administered today. The patient is not a smoker. Patient weighs 265 pounds. She stands 5 feet 4 inches tall. Her BMI is 45.5, which places her in a class III category. Weight loss has been recommended, and collaboration with the patient's primary care physician has been recommended.
--- NOTE | 2018-01-15 15:08 | HP.PCM_ITS ---
(1) Traumatic open wound of lower leg Status: Acute Current Visit: Yes Qualifiers: Encounter type: subsequent encounter Laterality: left Qualified Code(s): S81.802D - Unspecified open wound, left lower leg, subsequent encounter Code(s): S81.809A - Unspecified open wound, unspecified lower leg, initial encounter (2) Leg swelling Status: Chronic Current Visit: Yes Code(s): M79.89 - Other specified soft tissue disorders (3) Edema of leg Status: Chronic Current Visit: Yes Code(s): R60.0 - Localized edema (4) Diabetes mellitus Status: Chronic Current Visit: Yes Qualifiers: Diabetes mellitus type: type 2 Code(s): E11.9 - Type 2 diabetes mellitus without complications (5) Morbid obesity with BMI of 45.0-49.9, adult Status: Chronic Current Visit: No Code(s): E66.01 - Morbid (severe) obesity due to excess calories; Z68.42 - Body mass index (BMI) 45.0-49.9, adult (6) COPD (chronic obstructive pulmonary disease) Status: Chronic Current Visit: No Code(s): J44.9 - Chronic obstructive pulmonary disease, unspecified (7) Coronary artery arteriosclerosis Status: Chronic Current Visit: No Code(s): I25.10 - Atherosclerotic heart disease of [place] coronary artery without angina pectoris History of Present Illness Date of Service: 01/15/18 Chief Complaint: Traumatic open wound of the left lower extremity History of Wound: This is a 57-year-old diabetic female who was in her normal state of health until approximately 2 months prior to presentation. At that time, she sustained trauma to the anterolateral aspect of the left calf, striking her leg against the bed frame. A wound resulted, which has failed to heal in normal fashion. She subsequently struck her leg against the bed frame a second time, again injuring the left lower extremity in the same location. She claims to have chronic swelling in the left lower extremity, that precedes her current injury. She sleeps in a recumbent position at night. 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 Past Medical History Past Medical History: Chronic Problems Leg swelling (Chronic) Edema of leg (Chronic) Diabetes mellitus (Chronic) Morbid obesity with BMI of 45.0-49.9, adult (Chronic) COPD (chronic obstructive pulmonary disease) (Chronic) Coronary artery arteriosclerosis (Chronic) Surgical History: - - The patient has a history of coronary artery stent placement. She has undergone open reduction and internal fixation of a left tibia fracture. She underwent right meniscus repair in the past. She is a Ab0. Allergies/Adverse Reactions: Allergies No Known Allergies Allergy (Verified 09/03/13 11:12) Home Medications: Ambulatory Orders Medication Instructions Recorded Aspirin E.C. [Ecotrin] 81 mg PO DAILY@0800 09/03/13 Hydrocodone/Acetaminophen [Vicodin 1 - 2 tablet PO Q6H PRN PRN 09/03/13 5-300 mg Tablet] Lisinopril [Lisinopril] 10 mg PO DAILY 09/03/13 Metformin [Metformin HCl] 1,000 mg PO BID 09/03/13 Metoprolol Tartrate [Metoprolol 50 mg PO DAILY 09/03/13 Tartrate] Dulaglutide [Trulicity] 0.75 mg SQ 01/02/18 Fluticasone/Vilanterol [Breo 1 each IH 01/02/18 Ellipta 200-25 Mcg INH] Insulin Glargine,Hum.rec.anlog 56 unit BID 01/02/18 [Lantus] Sitagliptin Phosphate [Januvia] 25 mg PO DAILY 01/02/18 Tiotropium Masterson [Spiriva] 18 mcg IH 01/02/18 - Family History Paternal - - The patient's father at the age of 78 with history of chronic obstructive pulmonary disease. The patient's mother at the age of 84 with history of chronic obstructive pulmonary disease. Smoking Status: Former smoker Tobacco Use: Non-smoker Alcohol: Occasional Drugs: None Review of Systems Constitutional: Denies: Chills, Fever, Weight Change Eyes: Denies: Pain, Vision Change HEENT: Denies: Difficulty Hearing, Difficulty Swallowing, Sinus Congestion Cardiovascular: Denies: Chest Pain, Palpitations Respiratory: Denies: Cough, Shortness of Breath Gastrointestinal: Denies: Diarrhea, Nausea, Vomiting Genitourinary: Denies: Dysuria, Hematuria Endocrine: Denies: Heat/ Cold Intolerance, Polydipsia, Polyuria Hematologic/ Lymphatic: Denies: Easy Bruising, Easy Bleeding - Physical Exam Vital Signs Temp Pulse Resp BP 96.7 F L 101 H 18 129/79 H 01/15/18 14:25 01/15/18 14:25 01/15/18 14:25 01/15/18 14:25 General: Alert, Oriented x3, Cooperative, No apparent distress, Well developed, Well nourished HEENT: Atraumatic, PERRLA, EOMI, Normocephalic Oral: Moist Mucosa Neck: No JVD Lungs: Normal air movement Abdomen: Non-Distended Extremities: No clubbing, No cyanosis, No Calf Tenderness, - - Only slight swelling and edema is noted in the lower extremities bilaterally. The traumatic wound on the left anterolateral tibial surface persists, little changed in size. There is evidence of increasing granulation tissue. Nonetheless, there remains a significant amount of nonviable tissue and bioburden. There is no obvious sign of infection or cellulitis. Wound dimensions are documented elsewhere. Skin: No rashes Wound Measurements and Assessment WC - Nurse 1 - General Ulcer Measurement Start: 01/02/18 08:27 Freq: Status: Active Protocol: Activity Type Activity Date Activity User E-Sign Co-Sign Detail Recorded Client Recorded Date Recorded By Document 01/15/18 14:25 DL [id number] 01/15/18 14:32 DL 01/15/18 14:25 Wound Center Nurse 1 [Ulcer Assessment] #1 L Vaz -Current Size (cm) - Length 1.6 -Current Size (cm) - Width 2 -Current Size (cm) - Depth 0.4 -Total Square Cm 3.2 -Photo Taken No -Exudate Amt Small (1-33%) -Exudate Type Serosanguineous -Wound Margin Distinct, Outline Attached -Granulation Amt Medium (34-66%) -Granulation Quality Red -Necrosis Amt Medium (34-66%) -Necrotic Tissue Type Adherent Slough -Structure Exposed N/A -Texture (Ketty-wound Skin Appearance) No Abnormality -Moisture (Ketty-wound Skin Appearance No Abnormality ) -Color (Ketty-wound Skin Appearance) No Abnormality -Temperature (Ketty-wound Skin No Abnormality Appearance) (Pt Warm) -Ulcer Cleansing Rinsed/ Irrigated with Saline -Foul Odor after Cleansing No -Anesthetic Used 5% Lidocaine Gel [Edema Assessment] -Left Calf (cm) 43.8 -Left Ankle (cm) 24 WC - Nurse 2 - General Ulcer CM Notes Start: 01/02/18 08:27 Freq: Status: Active Protocol: Activity Type Activity Date Activity User E-Sign Co-Sign Detail Recorded Client Recorded Date Recorded By Document 01/15/18 14:47 [id number] 01/15/18 14:57 01/15/18 14:47 Wound Center Nurse 2 [Procedure/Treatment] #1 L Vaz -Time 14:47 -Correct Patient Yes -Correct Side, Site, Position Yes -Correct Procedure Yes -Procedure Performed Yes -Type of Procedure Debridement -Clinical Debridement Subcutaneous -Post Debridement Size (cm) - Length 1.9 -Post Debridement Size (cm) - Width 2.2 -Post Debridement Size (cm) - Depth 0.5 -Total Square Cm 4.18 -Wound/Ulcer Outcome Not Healed -Ulcer Cleansing Rinsed/ Irrigated with Saline -Foul Odor after Cleansing No -Bioengineered Tissue No -Topical Lidocaine (%) 5 -Bleeding Controlled with NA -Treatment Response Procedure Tolerated Well [See Physician Procedure note for Specifics] Pain Scale: 0-10 Numeric [Pain] -Is Patient Pain Free? Yes Musculoskeletal: No Muscle Wasting Neurological: Cranial nerves II-XII grossly intact, Neuro grossly intact Psych/Mental Status: Normal Affect, Appropriate, Alert and oriented to time, place, person, mood and affect Debridement Note Post-Debridement Measurements/Treatment WC - Nurse 2 - General Ulcer CM Notes Start: 01/02/18 08:27 Freq: Status: Active Protocol: Activity Type Activity Date Activity User E-Sign Co-Sign Detail Recorded Client Recorded Date Recorded By Document 01/02/18 09:55 [id number] 01/02/18 09:59 Document 01/08/18 15:02 [id number] 01/08/18 15:05 Document 01/15/18 14:47 [id number] 01/15/18 14:57 01/02/18 01/08/18 01/15/18 09:55 15:02 14:47 Wound Center Nurse 2 #1 L Vaz -Time 09:55 15:02 14:47 -Correct Patient Yes Yes Yes -Correct Side, Site, Position Yes Yes Yes -Correct Procedure Yes Yes Yes -Procedure Performed Yes Yes Yes -Type of Procedure Debridement Debridement Debridement -Clinical Debridement Subcutaneous Subcutaneous Subcutaneous -Post Debridement Size (cm) - Length 1.7 1.6 1.9 -Post Debridement Size (cm) - Width 2.1 2.1 2.2 -Post Debridement Size (cm) - Depth 0.5 0.4 0.5 -Total Square Cm 3.57 3.36 4.18 -Wound/Ulcer Outcome Not Healed Not Healed Not Healed -Ulcer Cleansing Rinsed/ Not Cleansed Rinsed/ Irrigated with Irrigated with Saline Saline -Foul Odor after Cleansing No No No -Bioengineered Tissue No No No -Topical Lidocaine (%) 5 5 -Bleeding Controlled with NA Pressure NA -Treatment Response Procedure Procedure Procedure Tolerated Well Tolerated Well Tolerated Well Pain Scale: 0-10 Numeric Is Patient Pain Free? Yes No Yes Laterality: Left - Anterolateral tibial surface Type of Debridement: Excisional debridement Anesthesia Used: 4% Lidocaine Solution Depth: Down to and including healthy tissue, in the subcutaneous layer Percentage of wound debrided: 100 Instrument Used: 7mm curette Severity: Fat Layer Exposed Amount of bleeding with debridement: Mild Bleeding Controlled with: Compression and gauze Patient tolerated procedure well Assessment/Plan Active Problems Traumatic open wound of lower leg (Acute) Leg swelling (Chronic) Edema of leg (Chronic) Diabetes mellitus (Chronic) Assessment: This is a 57-year-old female who presents with a traumatic wound on the anterolateral aspect of the left calf. The injury occurred approximately 2 months prior to presentation, and has failed to heal appropriately. The patient presented with ralph, nonviable tissue within the wound itself. She is known to be a diabetic. Patient has undergone a battery of diagnostic tests, with results as follows: Glucose 150, sodium 140, potassium 4.8, chloride 103, BUN 15, creatinine 0.80, calcium 9.5, total protein 6.7, albumin 3.9, alkaline phosphatase 61, AST 20, ALT 35, hemoglobin A1c 8.3, white blood count 6.2, hemoglobin 14.2, hematocrit 41.1, platelets 253,000. The patient's cultures were positive for Klebsiella pneumonia, pseudomonas aeruginosa, and Streptococcus. She was placed on Levaquin 750 mg p.o. daily for a total of 10 days, and has now completed her course. A noninvasive lower extremity arterial study is normal, revealing triphasic waveforms at ankle level bilaterally, normal resting ankle?brachial indices bilaterally, and normal digital-brachial indices bilaterally. Plan: We are to continue the use of collagenase Santyl topically, to provide enzymatic debridement. An excisional debridement has been performed today, and will continue on a weekly basis. The patient has been instructed in the appropriate means of applying collagenase Santyl, and we will also use Nu Gauze to gently pack the wound daily as well. A noninvasive lower extremity arterial study is normal. We will now implement the use of SurePress wrap to the left lower extremity to assist in the control of swelling and edema. The patient has been encouraged to assure adequate nutrition. Optimizing glycemic control has also been advised. The patient will be vacationing in [place] next week, and will therefore return in 2 weeks for reassessment. Influenza vaccine was not administered today. The patient is not a smoker. Patient weighs 265 pounds. She stands 5 feet 4 inches tall. Her BMI is 45.5, which places her in a class III category. Weight loss has been recommended, and collaboration with the patient's primary care physician has been recommended.
--- NOTE | 2018-01-20 17:04 | LEAS ---
Arterial Study - Arterial Study Arterial Study: This is a 57-year-old female with a history of coronary artery disease, COPD, and diabetes mellitus. The patient presents with a chronic nonhealing wound in the left lower extremity. Suspecting the presence of atherosclerotic peripheral arterial occlusive disease, the patient was brought to the noninvasive vascular laboratory at this time for the purpose of bilateral noninvasive lower extremity arterial assessment. Doppler signal assessment was used to evaluate the pulses at ankle level bilaterally. The posterior tibial and dorsalis pedis pulses were triphasic bilaterally. Segmental limb pressures were obtained bilaterally. The right low thigh pressure was measured at 195 mmHg. The right calf pressure was measured at 167 mmHg. The right ankle pressure, as determined by posterior tibial pulse, was measured at 158 mmHg. The right ankle pressure, as determined by dorsalis pedis pulse, was measured at 144 mmHg. The right digital pressure was measured at 187 mmHg. The left low thigh pressure was measured at 198 mmHg. The left calf pressure was measured at 163 mmHg. The left ankle pressure, as determined by posterior tibial pulse, was measured at 141 mmHg. The left ankle pressure, as determined by dorsalis pedis pulse, was measured at 141 mmHg. The left digital pressure was measured at 136 mmHg. Pulse?volume recordings were obtained bilaterally and segmentally. Waveform amplitudes appeared to be satisfactory at all levels bilaterally, including low thigh, calf, ankle, and digital levels. Resting ankle?brachial indices were calculated bilaterally. The resting right ankle?brachial index was calculated to be 1.05. The resting left ankle?brachial index was calculated to be 0.93. Digital?brachial indices were calculated bilaterally. The right digital-brachial index was calculated to be 1.24. The left digital-brachial index was calculated to be 0.90. Impression: Based upon the findings of this resting noninvasive lower extremity arterial study, there is no evidence of significant atherosclerotic peripheral arterial occlusive disease in the lower extremities bilaterally. Triphasic waveforms were noted at ankle level bilaterally. Resting ankle?brachial indices were bilaterally normal. Digital-brachial indices were also normal bilaterally. In summary, this represents a normal resting noninvasive lower extremity arterial study bilaterally.
--- NOTE | 2018-01-20 17:11 | LEAS_ITS ---
Arterial Study - Arterial Study Arterial Study: This is a 57-year-old female with a history of coronary artery disease, COPD, and diabetes mellitus. The patient presents with a chronic nonhealing wound in the left lower extremity. Suspecting the presence of atherosclerotic peripheral arterial occlusive disease, the patient was brought to the noninvasive vascular laboratory at this time for the purpose of bilateral noninvasive lower extremity arterial assessment. Doppler signal assessment was used to evaluate the pulses at ankle level bilaterally. The posterior tibial and dorsalis pedis pulses were triphasic bilaterally. Segmental limb pressures were obtained bilaterally. The right low thigh pressure was measured at 195 mmHg. The right calf pressure was measured at 167 mmHg. The right ankle pressure, as determined by posterior tibial pulse, was measured at 158 mmHg. The right ankle pressure, as determined by dorsalis pedis pulse, was measured at 144 mmHg. The right digital pressure was measured at 187 mmHg. The left low thigh pressure was measured at 198 mmHg. The left calf pressure was measured at 163 mmHg. The left ankle pressure, as determined by posterior tibial pulse, was measured at 141 mmHg. The left ankle pressure, as determined by dorsalis pedis pulse, was measured at 141 mmHg. The left digital pressure was measured at 136 mmHg. Pulse?volume recordings were obtained bilaterally and segmentally. Waveform amplitudes appeared to be satisfactory at all levels bilaterally, including low thigh, calf, ankle, and digital levels. Resting ankle?brachial indices were calculated bilaterally. The resting right ankle?brachial index was calculated to be 1.05. The resting left ankle?brachial index was calculated to be 0.93. Digital?brachial indices were calculated bilaterally. The right digital- brachial index was calculated to be 1.24. The left digital-brachial index was c alculated to be 0.90. Impression: Based upon the findings of this resting noninvasive lower extremity arterial study, there is no evidence of significant atherosclerotic peripheral arterial occlusive disease in the lower extremities bilaterally. Triphasic waveforms were noted at ankle level bilaterally. Resting ankle?brachial indices were bilaterally normal. Digital-brachial indices were also normal bilaterally. In summary, this represents a normal resting noninvasive lower extremity arterial study bilaterally.
== END 2018-01-21 23:59 ==
LOC: WC 14:30
PROVIDERS: PCP Nurse Practitioner Primary Care; Visit Provider Surgery
DX: S81.832A Puncture wound without foreign body, left lower leg, initial encounter (principal); W22.03XA Walked into furniture, initial encounter; I25.10 Atherosclerotic heart disease of native coronary artery without angina pectoris; J44.9 Chronic obstructive pulmonary disease, unspecified; E66.01 Morbid (severe) obesity due to excess calories; Z68.42 Body mass index [BMI] 45.0-49.9, adult; Z71.3 Dietary counseling and surveillance; R60.0 Localized edema; M79.89 Other specified soft tissue disorders; E11.51 Type 2 diabetes mellitus with diabetic peripheral angiopathy without gangrene; I25.2 Old myocardial infarction; Z79.899 Other long term (current) drug therapy; Z79.82 Long term (current) use of aspirin; Z87.891 Personal history of nicotine dependence
CPT/HCPCS: 11042; 87070; 87075; 87077; 87186; 87205; 93923; 93970; 99213; G0463

== ENCOUNTER 2018-02-19 15:00 | Outpatient (RCR) | payer OTHER, SELFPAY ==
[2018-01-22 00:16] VITALS: BP 129/79; PULSE 101; RESP 18; TEMP 35.9
[2018-01-29 15:35] VITALS: BP 125/82; PULSE 83; RESP 20
--- NOTE | 2018-01-29 16:46 | HP.PCM_ITS ---
(1) Traumatic open wound of lower leg Status: Acute Current Visit: Yes Qualifiers: Encounter type: subsequent encounter Laterality: left Qualified Code(s): S81.802D - Unspecified open wound, left lower leg, subsequent encounter Code(s): S81.809A - Unspecified open wound, unspecified lower leg, initial encounter (2) Leg swelling Status: Chronic Current Visit: Yes Code(s): M79.89 - Other specified soft tissue disorders (3) Edema of leg Status: Chronic Current Visit: Yes Code(s): R60.0 - Localized edema (4) Diabetes mellitus Status: Chronic Current Visit: No Code(s): E11.9 - Type 2 diabetes mellitus without complications (5) Morbid obesity with BMI of 45.0-49.9, adult Status: Chronic Current Visit: No Code(s): E66.01 - Morbid (severe) obesity due to excess calories; Z68.42 - Body mass index (BMI) 45.0-49.9, adult (6) COPD (chronic obstructive pulmonary disease) Status: Chronic Current Visit: No Code(s): J44.9 - Chronic obstructive pulmonary disease, unspecified (7) Coronary artery arteriosclerosis Status: Chronic Current Visit: No Code(s): I25.10 - Atherosclerotic heart disease of [place] coronary artery without angina pectoris History of Present Illness Chief Complaint: Traumatic open wound of the left lower extremity History of Wound: This is a 57-year-old diabetic female who was in her normal state of health until approximately 2 months prior to presentation. At that time, she sustained trauma to the anterolateral aspect of the left calf, striking her leg against the bed frame. A wound resulted, which has failed to heal in normal fashion. She subsequently struck her leg against the bed frame a second time, again injuring the left lower extremity in the same location. She claims to have chronic swelling in the left lower extremity, that precedes her current injury. She sleeps in a recumbent position at night. 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 Past Medical History Past Medical History: Chronic Problems Leg swelling (Chronic) Edema of leg (Chronic) Diabetes mellitus (Chronic) Morbid obesity with BMI of 45.0-49.9, adult (Chronic) COPD (chronic obstructive pulmonary disease) (Chronic) Coronary artery arteriosclerosis (Chronic) Surgical History: - - The patient has a history of coronary artery stent placement. She has undergone open reduction and internal fixation of a left tibia fracture. She underwent right meniscus repair in the past. She is a Ab0. Allergies/Adverse Reactions: Allergies No Known Allergies Allergy (Verified 09/03/13 11:12) Home Medications: Ambulatory Orders Medication Instructions Recorded Aspirin E.C. [Ecotrin] 81 mg PO DAILY@0800 09/03/13 Hydrocodone/Acetaminophen [Vicodin 1 - 2 tablet PO Q6H PRN PRN 09/03/13 5-300 mg Tablet] Lisinopril 10 mg PO DAILY 09/03/13 Metformin [Metformin HCl] 1,000 mg PO BID 09/03/13 Metoprolol Tartrate 50 mg PO DAILY 09/03/13 Dulaglutide [Trulicity] 0.75 mg SQ 01/02/18 Fluticasone/Vilanterol [Breo 1 each IH 01/02/18 Ellipta 200-25 Mcg INH] Insulin Glargine,Hum.rec.anlog 56 unit BID 01/02/18 [Lantus] Sitagliptin Phosphate [Januvia] 25 mg PO DAILY 01/02/18 Tiotropium [place] [Spiriva] 18 mcg IH 01/02/18 - Family History Paternal - - The patient's father at the age of 78 with history of chronic obstructive pulmonary disease. The patient's mother at the age of 84 with history of chronic obstructive pulmonary disease. Smoking Status: Former smoker Tobacco Use: Non-smoker Review of Systems Constitutional: Denies: Chills, Fever, Weight Change Eyes: Denies: Pain, Vision Change HEENT: Denies: Difficulty Hearing, Difficulty Swallowing, Sinus Congestion Cardiovascular: Denies: Chest Pain, Palpitations Respiratory: Denies: Cough, Shortness of Breath Gastrointestinal: Denies: Diarrhea, Nausea, Vomiting Genitourinary: Denies: Dysuria, Hematuria Endocrine: Denies: Heat/ Cold Intolerance, Polydipsia, Polyuria Hematologic/ Lymphatic: Denies: Easy Bruising, Easy Bleeding - Physical Exam Vital Signs Temp Pulse Resp BP 96.7 F L 83 20 H 125/82 H 01/22/18 00:16 01/29/18 15:35 01/29/18 15:35 01/29/18 15:35 General: Alert, Oriented x3, Cooperative, No apparent distress, Well developed, Well nourished HEENT: Atraumatic, PERRLA, EOMI, Normocephalic Oral: Moist Mucosa Neck: No JVD Lungs: Normal air movement Abdomen: Non-Distended Extremities: No clubbing, No cyanosis, No Calf Tenderness, Edema, - - Mild swelling and edema is noted in the left lower extremity. The wound on the left lateral calf persists. Dimensions are documented elsewhere. There is a moderate amount of bioburden. There is some nonviable and necrotic tissue present, though this has decreased since the patient was last seen. There is no evidence of infection or cellulitis. Skin: No rashes Wound Measurements and Assessment WC - Nurse 1 - General Ulcer Measurement Start: 01/29/18 15:31 Freq: Status: Active Protocol: Activity Type Activity Date Activity User E-Sign Co-Sign Detail Recorded Client Recorded Date Recorded By Document 01/29/18 15:35 DV [id number] 01/29/18 15:49 DV 01/29/18 15:35 Wound Center Nurse 1 [Ulcer Assessment] #1 L Vaz -Combined with other wound No -Date of Last Picture (Recall this 01/29/18 field) -Photo Taken Yes -Epithelialization None Present -Tunneling No -Undermining/Tunneling No -Circular Undermining No -Exudate Amt Medium (34-66%) -Exudate Type Serosanguineous -Wound Margin Distinct, Outline Attached -Granulation Amt Small (1-33%) -Granulation Quality Radium -Slough/Fibrin Yes -Necrosis Amt Medium (34-66%) -Necrotic Tissue Type Adherent Slough -Structure Exposed None/Limited to Skin Breakdown -Texture (Ketty-wound Skin Appearance) Assessed Localized Edema -Moisture (Ketty-wound Skin Appearance Assessed ) Weeping -Color (Ketty-wound Skin Appearance) Assessed Erythema -Temperature (Ketty-wound Skin No Abnormality Appearance) (Pt Warm) -Tenderness on Palpation (Ketty-wound Yes Skin Appearance) -Ulcer Cleansing Rinsed/ Irrigated with Saline -Foul Odor after Cleansing No -Anesthetic Used 4% Lidocaine Solution [Edema Assessment] -Lower Limb Edema Present No -Left Calf (cm) 45.0 -Left Ankle (cm) 25.0 Musculoskeletal: No Muscle Wasting Neurological: Cranial nerves II-XII grossly intact, Neuro grossly intact Psych/Mental Status: Normal Affect, Appropriate, Alert and oriented to time, place, person, mood and affect Debridement Note Laterality: Left - Lateral calf Type of Debridement: Excisional debridement Anesthesia Used: 4% Lidocaine Solution Depth: Down to and including healthy tissue, in the subcutaneous layer Percentage of wound debrided: 100 Instrument Used: 7mm curette Severity: Fat Layer Exposed Amount of bleeding with debridement: Mild Bleeding Controlled with: Compression and gauze Patient tolerated procedure well Assessment/Plan Active Problems Traumatic open wound of lower leg (Acute) Leg swelling (Chronic) Edema of leg (Chronic) Assessment: This is a 57-year-old female who presents with a traumatic wound on the anterolateral aspect of the left calf. The injury occurred approximately 2 months prior to presentation, and has failed to heal appropriately. The patient presented with ralph, nonviable tissue within the wound itself. She is known to be a diabetic. Patient has undergone a battery of diagnostic tests, with results as follows: Glucose 150, sodium 140, potassium 4.8, chloride 103, BUN 15, creatinine 0.80, calcium 9.5, total protein 6.7, albumin 3.9, alkaline phosphatase 61, AST 20, ALT 35, hemoglobin A1c 8.3, white blood count 6.2, hemoglobin 14.2, hematocrit 41.1, platelets 253,000. The patient's cultures were positive for Klebsiella pneumonia, pseudomonas aeruginosa, and Streptococcus. She was placed on Levaquin 750 mg p.o. daily for a total of 10 days, and has now completed her course. A noninvasive lower extremity arterial study is normal, revealing triphasic waveforms at ankle level bilaterally, normal resting ankle?brachial indices bilaterally, and normal digital-brachial indices bilaterally. Plan: We are to continue the use of collagenase Santyl topically, to provide enzymatic debridement. An excisional debridement has been performed today, and will continue on a weekly basis. The patient has been instructed in the appropriate means of applying collagenase Santyl, and we will also use Nu Gauze to gently pack the wound daily as well. A noninvasive lower extremity arterial study is normal. We will now implement the use of SurePress wrap to the left lower extremity to assist in the control of swelling and edema. The patient has been encouraged to assure adequate nutrition. Optimizing glycemic control has also been advised. The patient will return in 1 week for reassessment. We will seek insurance preauthorization for the use of the Snap VAC. Influenza vaccine was not administered today. The patient is not a smoker. Patient weighs 265 pounds. She stands 5 feet 4 inches tall. Her BMI is 45.5, which places her in a class III category. Weight loss has been recommended, and collaboration with the patient's primary care physician has been recommended.
--- NOTE | 2018-02-01 10:21 | WC ---
Insurance company ([employer]) notified for Pre-Authorization for use of SNaP VAC ([id number]) to wound of left lower leg. Spoke with Sara Odonnell. No pre-authorization required for this product. No precertification or pre-authorization numbers generated. Device to be applied at next appointment (02/05 @ 15:00)
[2018-02-06 09:57] VITALS: BP 143/78; PULSE 83; RESP 18; TEMP 36.3
--- NOTE | 2018-02-06 11:33 | PCM.WC.HP ---
(1) Traumatic open wound of lower leg Status: Acute Current Visit: Yes Qualifiers: Encounter type: subsequent encounter Laterality: left Qualified Code(s): S81.802D - Unspecified open wound, left lower leg, subsequent encounter Code(s): S81.809A - Unspecified open wound, unspecified lower leg, initial encounter (2) Leg swelling Status: Chronic Current Visit: Yes Code(s): M79.89 - Other specified soft tissue disorders (3) Edema of leg Status: Chronic Current Visit: Yes Code(s): R60.0 - Localized edema (4) Diabetes mellitus Status: Chronic Current Visit: No Code(s): E11.9 - Type 2 diabetes mellitus without complications (5) Morbid obesity with BMI of 45.0-49.9, adult Status: Chronic Current Visit: No Code(s): E66.01 - Morbid (severe) obesity due to excess calories; Z68.42 - Body mass index (BMI) 45.0-49.9, adult (6) COPD (chronic obstructive pulmonary disease) Status: Chronic Current Visit: No Code(s): J44.9 - Chronic obstructive pulmonary disease, unspecified (7) Coronary artery arteriosclerosis Status: Chronic Current Visit: No Code(s): I25.10 - Atherosclerotic heart disease of [place] coronary artery without angina pectoris History of Present Illness Chief Complaint: Traumatic open wound of the left lower extremity History of Wound: This is a 57-year-old diabetic female who was in her normal state of health until approximately 2 months prior to presentation. At that time, she sustained trauma to the anterolateral aspect of the left calf, striking her leg against the bed frame. A wound resulted, which has failed to heal in normal fashion. She subsequently struck her leg against the bed frame a second time, again injuring the left lower extremity in the same location. She claims to have chronic swelling in the left lower extremity, that precedes her current injury. She sleeps in a recumbent position at night. 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 Past Medical History Past Medical History: Chronic Problems Leg swelling (Chronic) Edema of leg (Chronic) Diabetes mellitus (Chronic) Morbid obesity with BMI of 45.0-49.9, adult (Chronic) COPD (chronic obstructive pulmonary disease) (Chronic) Coronary artery arteriosclerosis (Chronic) Surgical History: - - The patient has a history of coronary artery stent placement. She has undergone open reduction and internal fixation of a left tibia fracture. She underwent right meniscus repair in the past. She is a Ab0. Allergies/Adverse Reactions: Allergies No Known Allergies Allergy (Verified 09/03/13 11:12) Home Medications: Ambulatory Orders Medication Instructions Recorded Aspirin E.C. [Ecotrin] 81 mg PO DAILY@0800 09/03/13 Hydrocodone/Acetaminophen [Vicodin 1 - 2 tablet PO Q6H PRN PRN 09/03/13 5-300 mg Tablet] Lisinopril 10 mg PO DAILY 09/03/13 Metformin [Metformin HCl] 1,000 mg PO BID 09/03/13 Metoprolol Tartrate 50 mg PO DAILY 09/03/13 Dulaglutide [Trulicity] 0.75 mg SQ 01/02/18 Fluticasone/Vilanterol [Breo 1 each IH 01/02/18 Ellipta 200-25 Mcg INH] Insulin Glargine,Hum.rec.anlog 56 unit BID 01/02/18 [Lantus] Sitagliptin Phosphate [Januvia] 25 mg PO DAILY 01/02/18 Tiotropium [place] [Spiriva] 18 mcg IH 01/02/18 - Family History Paternal - - The patient's father at the age of 78 with history of chronic obstructive pulmonary disease. The patient's mother at the age of 84 with history of chronic obstructive pulmonary disease. Smoking Status: Former smoker Tobacco Use: Non-smoker Review of Systems Constitutional: Denies: Chills, Fever, Weight Change Eyes: Denies: Pain, Vision Change HEENT: Denies: Difficulty Hearing, Difficulty Swallowing, Sinus Congestion Cardiovascular: Denies: Chest Pain, Palpitations Respiratory: Denies: Cough, Shortness of Breath Gastrointestinal: Denies: Diarrhea, Nausea, Vomiting Genitourinary: Denies: Dysuria, Hematuria Endocrine: Denies: Heat/ Cold Intolerance, Polydipsia, Polyuria Hematologic/ Lymphatic: Denies: Easy Bruising, Easy Bleeding - Physical Exam Vital Signs Temp Pulse Resp BP 97.3 F L 83 18 143/78 H 02/06/18 09:57 02/06/18 09:57 02/06/18 09:57 02/06/18 09:57 General: Alert, Oriented x3, Cooperative, No apparent distress, Well developed, Well nourished, - - The patient is obese HEENT: Atraumatic, PERRLA, EOMI, Normocephalic Oral: Moist Mucosa Neck: No JVD Lungs: Normal air movement Abdomen: Non-Distended, Obese Extremities: No clubbing, No cyanosis, No Calf Tenderness, - - The swelling and edema in the lower extremities appears to be reasonably well controlled. The wound on the left lateral calf persist, slightly smaller in size. Dimensions are documented elsewhere. There is no sign of infection or cellulitis. There is a small amount of bioburden. There is evidence of active pink granulation tissue. Skin: No rashes Wound Measurements and Assessment WC - Nurse 1 - General Ulcer Measurement Start: 01/29/18 15:31 Freq: Status: Active Protocol: Activity Type Activity Date Activity User E-Sign Co-Sign Detail Recorded Client Recorded Date Recorded By Document 02/06/18 09:57 DV [id number] 02/06/18 10:05 DV 02/06/18 09:57 Wound Center Nurse 1 [Ulcer Assessment] #1 L Vaz -Combined with other wound No -Current Size (cm) - Length 1.8 -Current Size (cm) - Width 1.2 -Current Size (cm) - Depth 0.3 -Total Square Cm 2.16 -Photo Taken No -Epithelialization Small 1-33% -Tunneling No -Undermining/Tunneling No -Circular Undermining No -Classification - Thickness Full Thickness without Exposed Support Structure -Exudate Amt Small (1-33%) -Exudate Type Serosanguineous -Wound Margin Distinct, Outline Attached -Granulation Amt Medium (34-66%) -Granulation Quality Pale -Slough/Fibrin Yes -Necrosis Amt Medium (34-66%) -Necrotic Tissue Type Adherent Slough -Structure Exposed None/Limited to Skin Breakdown -Texture (Ketty-wound Skin Appearance) Assessed Localized Edema Scarring -Moisture (Ketty-wound Skin Appearance Assessed ) Weeping -Color (Ketty-wound Skin Appearance) No Abnormality Assessed -Temperature (Ketty-wound Skin No Abnormality Appearance) (Pt Warm) -Tenderness on Palpation (Ketty-wound Yes Skin Appearance) -Ulcer Cleansing Rinsed/ Irrigated with Saline -Foul Odor after Cleansing No -Anesthetic Used 4% Lidocaine Solution [Edema Assessment] -Lower Limb Edema Present No -Left Calf (cm) 43.2 -Left Ankle (cm) 24.0 - Nurse 2 - General Ulcer CM Notes Start: 01/29/18 15:31 Freq: Status: Active Protocol: Activity Type Activity Date Activity User E-Sign Co-Sign Detail Recorded Client Recorded Date Recorded By Document 02/06/18 11:21 [id number] 02/06/18 11:30 02/06/18 11:21 Wound Center Nurse 2 [Procedure/Treatment] #1 L Vaz -Time 11:21 -Correct Patient Yes -Correct Side, Site, Position Yes -Correct Procedure Yes -Procedure Performed Yes -Type of Procedure Debridement -Clinical Debridement Subcutaneous -Post Debridement Size (cm) - Length 2.0 -Post Debridement Size (cm) - Width 2.2 -Post Debridement Size (cm) - Depth 0.4 -Total Square Cm 4.40 -Wound/Ulcer Outcome Not Healed -Ulcer Cleansing Rinsed/ Irrigated with Saline -Foul Odor after Cleansing No -Bioengineered Tissue No -Topical Lidocaine (%) 4 -Lidocaine (ml) 5 -Bleeding Controlled with NA -Treatment Response Procedure Tolerated Well [See Physician Procedure note for Specifics] Musculoskeletal: No Muscle Wasting Neurological: Cranial nerves II-XII grossly intact, Neuro grossly intact Psych/Mental Status: Normal Affect, Appropriate, Alert and oriented to time, place, person, mood and affect Debridement Note Post-Debridement Measurements/Treatment - Nurse 2 - General Ulcer CM Notes Start: 01/29/18 15:31 Freq: Status: Active Protocol: Activity Type Activity Date Activity User E-Sign Co-Sign Detail Recorded Client Recorded Date Recorded By Document 01/29/18 16:30 [id number] 01/29/18 16:46 Document 02/06/18 11:21 [id number] 02/06/18 11:30 01/29/18 02/06/18 16:30 11:21 Wound Center Nurse 2 #1 L Vaz -Time 16:30 11:21 -Correct Patient Yes Yes -Correct Side, Site, Position Yes Yes -Correct Procedure Yes Yes -Procedure Performed Yes Yes -Type of Procedure Debridement Debridement -Clinical Debridement Subcutaneous Subcutaneous -Post Debridement Size (cm) - Length 1.9 2.0 -Post Debridement Size (cm) - Width 2.0 2.2 -Post Debridement Size (cm) - Depth 0.4 0.4 -Total Square Cm 3.80 4.40 -Wound/Ulcer Outcome Not Healed Not Healed -Ulcer Cleansing Rinsed/ Rinsed/ Irrigated with Irrigated with Saline Saline -Foul Odor after Cleansing No No -Bioengineered Tissue No No -Topical Lidocaine (%) 4 4 -Lidocaine (ml) 5 -Bleeding Controlled with NA NA -Treatment Response Procedure Procedure Tolerated Well Tolerated Well Pain Scale: 0-10 Numeric Is Patient Pain Free? Yes Laterality: Left - Lateral calf Type of Debridement: Excisional debridement Anesthesia Used: 4% Lidocaine Solution Depth: Down to and including healthy tissue, in the subcutaneous layer Percentage of wound debrided: 100 Instrument Used: 7mm curette Severity: Fat Layer Exposed Amount of bleeding with debridement: Mild Bleeding Controlled with: Compression and gauze Patient tolerated procedure well Assessment/Plan Active Problems Traumatic open wound of lower leg (Acute) Leg swelling (Chronic) Edema of leg (Chronic) Assessment: This is a 57-year-old female who presents with a traumatic wound on the anterolateral aspect of the left calf. The injury occurred approximately 2 months prior to presentation, and has failed to heal appropriately. The patient presented with ralph, nonviable tissue within the wound itself. She is known to be a diabetic. Patient has undergone a battery of diagnostic tests, with results as follows: Glucose 150, sodium 140, potassium 4.8, chloride 103, BUN 15, creatinine 0.80, calcium 9.5, total protein 6.7, albumin 3.9, alkaline phosphatase 61, AST 20, ALT 35, hemoglobin A1c 8.3, white blood count 6.2, hemoglobin 14.2, hematocrit 41.1, platelets 253,000. The patient's cultures were positive for Klebsiella pneumonia, pseudomonas aeruginosa, and Streptococcus. She was placed on Levaquin 750 mg p.o. daily for a total of 10 days, and has now completed her course. A noninvasive lower extremity arterial study is normal, revealing triphasic waveforms at ankle level bilaterally, normal resting ankle?brachial indices bilaterally, and normal digital-brachial indices bilaterally. Plan: We are to transition to the use of the Snap VAC. An excisional debridement has been performed today, and will continue on a weekly basis. A noninvasive lower extremity arterial study is normal. We will continue the use of SurePress wrap to the left lower extremity to assist in the control of swelling and edema. The patient has been encouraged to assure adequate nutrition. Optimizing glycemic control has also been advised. The patient will return in 2 weeks for reassessment, as she will be on vacation next week. Influenza vaccine was not administered today. The patient is not a smoker. Patient weighs 265 pounds. She stands 5 feet 4 inches tall. Her BMI is 45.5, which places her in a class III category. Weight loss has been recommended, and collaboration with the patient's primary care physician has been recommended.
[2018-02-09 14:57] VITALS: BP 134/75; PULSE 86; RESP 18; TEMP 36.6
[2018-02-19 15:24] VITALS: BP 148/97; PULSE 105; RESP 16; TEMP 37.2; O2SAT 94
--- NOTE | 2018-02-19 15:59 | HP.PCM_ITS ---
(1) Traumatic open wound of lower leg Status: Acute Current Visit: Yes Qualifiers: Encounter type: subsequent encounter Laterality: left Qualified Code(s): S81.802D - Unspecified open wound, left lower leg, subsequent encounter Code(s): S81.809A - Unspecified open wound, unspecified lower leg, initial encounter (2) Leg swelling Status: Chronic Current Visit: Yes Code(s): M79.89 - Other specified soft tissue disorders (3) Edema of leg Status: Chronic Current Visit: Yes Code(s): R60.0 - Localized edema (4) Diabetes mellitus Status: Chronic Current Visit: No Code(s): E11.9 - Type 2 diabetes mellitus without complications (5) Morbid obesity with BMI of 45.0-49.9, adult Status: Chronic Current Visit: No Code(s): E66.01 - Morbid (severe) obesity due to excess calories; Z68.42 - Body mass index (BMI) 45.0-49.9, adult (6) COPD (chronic obstructive pulmonary disease) Status: Chronic Current Visit: No Code(s): J44.9 - Chronic obstructive pulmonary disease, unspecified (7) Coronary artery arteriosclerosis Status: Chronic Current Visit: No Code(s): I25.10 - Atherosclerotic heart disease of [place] coronary artery without angina pectoris History of Present Illness Chief Complaint: Traumatic open wound of the left lower extremity History of Wound: This is a 57-year-old diabetic female who was in her normal state of health until approximately 2 months prior to presentation. At that time, she sustained trauma to the anterolateral aspect of the left calf, striking her leg against the bed frame. A wound resulted, which has failed to heal in normal fashion. She subsequently struck her leg against the bed frame a second time, again injuring the left lower extremity in the same location. She claims to have chronic swelling in the left lower extremity, that precedes her current injury. She sleeps in a recumbent position at night. 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 Past Medical History Past Medical History: Chronic Problems Leg swelling (Chronic) Edema of leg (Chronic) Diabetes mellitus (Chronic) Morbid obesity with BMI of 45.0-49.9, adult (Chronic) COPD (chronic obstructive pulmonary disease) (Chronic) Coronary artery arteriosclerosis (Chronic) Surgical History: - - The patient has a history of coronary artery stent placement. She has undergone open reduction and internal fixation of a left tibia fracture. She underwent right meniscus repair in the past. She is a Ab0. Allergies/Adverse Reactions: Allergies No Known Allergies Allergy (Verified 09/03/13 11:12) Home Medications: Ambulatory Orders Medication Instructions Recorded Aspirin E.C. [Ecotrin] 81 mg PO DAILY@0800 09/03/13 Hydrocodone/Acetaminophen [Vicodin 1 - 2 tablet PO Q6H PRN PRN 09/03/13 5-300 mg Tablet] Lisinopril 10 mg PO DAILY 09/03/13 Metformin [Metformin HCl] 1,000 mg PO BID 09/03/13 Metoprolol Tartrate 50 mg PO DAILY 09/03/13 Dulaglutide [Trulicity] 0.75 mg SQ 01/02/18 Fluticasone/Vilanterol [Breo 1 each IH 01/02/18 Ellipta 200-25 Mcg INH] Insulin Glargine,Hum.rec.anlog 56 unit BID 01/02/18 [Lantus] Sitagliptin Phosphate [Januvia] 25 mg PO DAILY 01/02/18 Tiotropium [place] [Spiriva] 18 mcg IH 01/02/18 - Family History Paternal - - The patient's father at the age of 78 with history of chronic obstructive pulmonary disease. The patient's mother at the age of 84 with history of chronic obstructive pulmonary disease. Smoking Status: Former smoker Tobacco Use: Non-smoker Review of Systems Constitutional: Denies: Chills, Fever, Weight Change Eyes: Denies: Pain, Vision Change HEENT: Denies: Difficulty Hearing, Difficulty Swallowing, Sinus Congestion Cardiovascular: Denies: Chest Pain, Palpitations Respiratory: Denies: Cough, Shortness of Breath Gastrointestinal: Denies: Diarrhea, Nausea, Vomiting Genitourinary: Denies: Dysuria, Hematuria Endocrine: Denies: Heat/ Cold Intolerance, Polydipsia, Polyuria Hematologic/ Lymphatic: Denies: Easy Bruising, Easy Bleeding - Physical Exam Vital Signs Temp Pulse Resp BP Pulse Ox 98.9 F 105 H 16 148/97 H 94 02/19/18 15:24 02/19/18 15:24 02/19/18 15:24 02/19/18 15:24 02/19/18 15:24 General: Alert, Oriented x3, Cooperative, No apparent distress, Well developed, Well nourished HEENT: Atraumatic, PERRLA, EOMI, Normocephalic Oral: Moist Mucosa Neck: No JVD Lungs: Normal air movement Abdomen: Non-Distended Extremities: No clubbing, No cyanosis, No Calf Tenderness, - - The wound on the left lateral calf is only slightly changed in appearance. Visually, it appears slightly smaller in size, with evidence of peripheral epithelialization. Margins are well beveled. Approximately 75% of the wound is pink and healthy in appearance, with some fibrous tissue also noted. There is a small amount of bioburden. Dimensions are documented elsewhere. There is no sign of infection or cellulitis. Skin: No rashes Wound Measurements and Assessment WC - Nurse 1 - General Ulcer Measurement Start: 01/29/18 15:31 Freq: Status: Active Protocol: Activity Type Activity Date Activity User E-Sign Co-Sign Detail Recorded Client Recorded Date Recorded By Document 02/19/18 15:24 DC [id number] 02/19/18 15:36 DC 02/19/18 15:24 Wound Center Nurse 1 [Ulcer Assessment] #1 L Vaz -Combined with other wound No -Current Size (cm) - Length 1.9 -Current Size (cm) - Width 2.4 -Current Size (cm) - Depth 0.2 -Total Square Cm 4.56 -Photo Taken No -Epithelialization Small 1-33% -Tunneling No -Undermining/Tunneling No -Circular Undermining No -Exudate Amt Medium (34-66%) -Exudate Type Serosanguineous -Wound Margin Distinct, Outline Attached -Granulation Amt Small (1-33%) -Granulation Quality [place] Red -Necrosis Amt Large (67-100%) -Necrotic Tissue Type Adherent Slough -Texture (Ketty-wound Skin Appearance) Assessed -Moisture (Ketty-wound Skin Appearance Assessed ) Maceration -Color (Ketty-wound Skin Appearance) Assessed -Temperature (Ketty-wound Skin No Abnormality Appearance) (Pt Warm) -Tenderness on Palpation (Ketty-wound No Skin Appearance) -Ulcer Cleansing Rinsed/ Irrigated with Saline -Foul Odor after Cleansing No -Anesthetic Used 5% Lidocaine Gel [Edema Assessment] -Left Calf (cm) 43.5 -Left Ankle (cm) 23.5 Musculoskeletal: No Muscle Wasting Neurological: Cranial nerves II-XII grossly intact, Neuro grossly intact Psych/Mental Status: Normal Affect, Appropriate, Alert and oriented to time, place, person, mood and affect Debridement Note Post-Debridement Measurements/Treatment WC - Nurse 2 - General Ulcer CM Notes Start: 01/29/18 15:31 Freq: Status: Active Protocol: Activity Type Activity Date Activity User E-Sign Co-Sign Detail Recorded Client Recorded Date Recorded By Document 01/29/18 16:30 [id number] 01/29/18 16:46 JS Document 02/06/18 11:21 [id number] 02/06/18 11:30 JS 01/29/18 02/06/18 16:30 11:21 Wound Center Nurse 2 #1 L Vaz -Time 16:30 11:21 -Correct Patient Yes Yes -Correct Side, Site, Position Yes Yes -Correct Procedure Yes Yes -Procedure Performed Yes Yes -Type of Procedure Debridement Debridement -Clinical Debridement Subcutaneous Subcutaneous -Post Debridement Size (cm) - Length 1.9 2.0 -Post Debridement Size (cm) - Width 2.0 2.2 -Post Debridement Size (cm) - Depth 0.4 0.4 -Total Square Cm 3.80 4.40 -Wound/Ulcer Outcome Not Healed Not Healed -Ulcer Cleansing Rinsed/ Rinsed/ Irrigated with Irrigated with Saline Saline -Foul Odor after Cleansing No No -Bioengineered Tissue No No -Topical Lidocaine (%) 4 4 -Lidocaine (ml) 5 -Bleeding Controlled with NA NA -Treatment Response Procedure Procedure Tolerated Well Tolerated Well Pain Scale: 0-10 Numeric Is Patient Pain Free? Yes Laterality: Left - Lateral calf Type of Debridement: Excisional debridement Anesthesia Used: 5% Lidocaine Gel Depth: Down to and including healthy tissue, in the subcutaneous layer Percentage of wound debrided: 100 Instrument Used: 7mm curette Severity: Fat Layer Exposed Amount of bleeding with debridement: Mild Bleeding Controlled with: Compression and gauze Patient tolerated procedure well Assessment/Plan Active Problems Traumatic open wound of lower leg (Acute) Leg swelling (Chronic) Edema of leg (Chronic) Assessment: This is a 57-year-old female who presented with a traumatic wound on the anterolateral aspect of the left calf. The injury occurred approximately 2 months prior to presentation, and has failed to heal appropriately. The patient presented with ralph, nonviable tissue within the wound itself. She is known to be a diabetic. Patient has undergone a battery of diagnostic tests, with results as follows: Glucose 150, sodium 140, potassium 4.8, chloride 103, BUN 15, creatinine 0.80, calcium 9.5, total protein 6.7, albumin 3.9, alkaline phosphatase 61, AST 20, ALT 35, hemoglobin A1c 8.3, white blood count 6.2, hemoglobin 14.2, hematocrit 41.1, platelets 253,000. The patient's cultures were positive for Klebsiella pneumonia, pseudomonas aeruginosa, and Streptococcus. She was placed on Levaquin 750 mg p.o. daily for a total of 10 days, and has now completed her course. A noninvasive lower extremity arterial study is normal, revealing triphasic waveforms at ankle level bilaterally, normal resting ankle?brachial indices bilaterally, and normal digital-brachial indices bilaterally. Plan: We are to continue the use of the Snap VAC. An excisional debridement has been performed today, and will continue on a weekly basis. A noninvasive lower extremity arterial study is normal. We will continue the use of SurePress wrap to the left lower extremity to assist in the control of swelling and edema. The patient has been encouraged to assure adequate nutrition. Optimizing glycemic control has also been advised. The patient will return in 1 week for reassessment. Influenza vaccine was not administered today. The patient is not a smoker. Patient weighs 265 pounds. She stands 5 feet 4 inches tall. Her BMI is 45.5, which places her in a class III category. Weight loss has been recommended, and collaboration with the patient's primary care physician has been recommended.
== END 2018-02-21 23:59 ==
LOC: WC 15:00
PROVIDERS: PCP Nurse Practitioner Primary Care; Referring Provider Surgery; Visit Provider Surgery
DX: S81.832A Puncture wound without foreign body, left lower leg, initial encounter (principal); W22.03XA Walked into furniture, initial encounter; E11.9 Type 2 diabetes mellitus without complications; R60.0 Localized edema; M79.89 Other specified soft tissue disorders; J44.9 Chronic obstructive pulmonary disease, unspecified; E66.01 Morbid (severe) obesity due to excess calories; Z68.42 Body mass index [BMI] 45.0-49.9, adult; Z71.3 Dietary counseling and surveillance; I25.10 Atherosclerotic heart disease of native coronary artery without angina pectoris; Z87.891 Personal history of nicotine dependence
CPT/HCPCS: 11042; 97607; 99212; G0463

== ENCOUNTER 2018-03-19 15:30 | Outpatient (RCR) | payer OTHER, SELFPAY ==
[2018-02-22 00:27] VITALS: BP 148/97; PULSE 105; RESP 16; TEMP 37.2; O2SAT 94
[2018-02-26 15:04] VITALS: BP 132/67; PULSE 87; RESP 16; TEMP 36.9
--- NOTE | 2018-02-26 16:01 | PCM.WC.HP ---
(1) Traumatic open wound of lower leg Status: Chronic Current Visit: No Qualifiers: Code(s): S81.809A - Unspecified open wound, unspecified lower leg, initial encounter (2) Leg swelling Status: Chronic Current Visit: Yes Code(s): M79.89 - Other specified soft tissue disorders (3) Edema of leg Status: Chronic Current Visit: Yes Code(s): R60.0 - Localized edema (4) Diabetes mellitus Status: Chronic Current Visit: No Code(s): E11.9 - Type 2 diabetes mellitus without complications (5) Morbid obesity with BMI of 45.0-49.9, adult Status: Chronic Current Visit: Yes Code(s): E66.01 - Morbid (severe) obesity due to excess calories; Z68.42 - Body mass index (BMI) 45.0-49.9, adult (6) COPD (chronic obstructive pulmonary disease) Status: Chronic Current Visit: No Code(s): J44.9 - Chronic obstructive pulmonary disease, unspecified (7) Coronary artery arteriosclerosis Status: Chronic Current Visit: No Code(s): I25.10 - Atherosclerotic heart disease of [place] coronary artery without angina pectoris History of Present Illness Chief Complaint: Traumatic open wound of the left lower extremity History of Wound: This is a 57-year-old diabetic female who was in her normal state of health until approximately 2 months prior to presentation. At that time, she sustained trauma to the anterolateral aspect of the left calf, striking her leg against the bed frame. A wound resulted, which has failed to heal in normal fashion. She subsequently struck her leg against the bed frame a second time, again injuring the left lower extremity in the same location. She claims to have chronic swelling in the left lower extremity, that precedes her current injury. She sleeps in a recumbent position at night. 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 Past Medical History Past Medical History: Chronic Problems Traumatic open wound of lower leg (Chronic) Leg swelling (Chronic) Edema of leg (Chronic) Diabetes mellitus (Chronic) Morbid obesity with BMI of 45.0-49.9, adult (Chronic) COPD (chronic obstructive pulmonary disease) (Chronic) Coronary artery arteriosclerosis (Chronic) Surgical History: - - The patient has a history of coronary artery stent placement. She has undergone open reduction and internal fixation of a left tibia fracture. She underwent right meniscus repair in the past. She is a Ab0. Allergies/Adverse Reactions: Allergies No Known Allergies Allergy (Verified 09/03/13 11:12) Home Medications: Ambulatory Orders Medication Instructions Recorded Aspirin E.C. [Ecotrin] 81 mg PO DAILY@0800 09/03/13 Hydrocodone/Acetaminophen [Vicodin 1 - 2 tablet PO Q6H PRN PRN 09/03/13 5-300 mg Tablet] Lisinopril 10 mg PO DAILY 09/03/13 Metformin [Metformin HCl] 1,000 mg PO BID 09/03/13 Metoprolol Tartrate 50 mg PO DAILY 09/03/13 Dulaglutide [Trulicity] 0.75 mg SQ 01/02/18 Fluticasone/Vilanterol [Breo 1 each IH 01/02/18 Ellipta 200-25 Mcg INH] Insulin Glargine,Hum.rec.anlog 56 unit BID 01/02/18 [Lantus] Sitagliptin Phosphate [Januvia] 25 mg PO DAILY 01/02/18 Tiotropium [place] [Spiriva] 18 mcg IH 01/02/18 - Family History Paternal - - The patient's father at the age of 78 with history of chronic obstructive pulmonary disease. The patient's mother at the age of 84 with history of chronic obstructive pulmonary disease. Smoking Status: Former smoker Tobacco Use: Non-smoker Review of Systems Constitutional: Denies: Chills, Fever, Weight Change Eyes: Denies: Pain, Vision Change HEENT: Denies: Difficulty Hearing, Difficulty Swallowing, Sinus Congestion Cardiovascular: Denies: Chest Pain, Palpitations Respiratory: Denies: Cough, Shortness of Breath Gastrointestinal: Denies: Diarrhea, Nausea, Vomiting Genitourinary: Denies: Dysuria, Hematuria Endocrine: Denies: Heat/ Cold Intolerance, Polydipsia, Polyuria Hematologic/ Lymphatic: Denies: Easy Bruising, Easy Bleeding - Physical Exam Vital Signs Temp Pulse Resp BP Pulse Ox 98.4 F 87 16 132/67 H 94 02/26/18 15:04 02/26/18 15:04 02/26/18 15:04 02/26/18 15:04 02/22/18 00:27 General: Alert, Oriented x3, Cooperative, No apparent distress, Well developed, Well nourished HEENT: Atraumatic, PERRLA, EOMI, Normocephalic Oral: Moist Mucosa Neck: No JVD Lungs: Normal air movement Abdomen: Non-Distended Extremities: No clubbing, No cyanosis, No Calf Tenderness, - - Only slight swelling and edema persist in the patient's left lower extremity. The open wound on the left anterolateral tibial surface is little changed in size, perhaps slightly larger. It continues to diminish slightly in depth. There is slight erythema, and swab cultures have been obtained today, for aerobic and anaerobic cultures. Dimensions are documented elsewhere. There is a moderate amount of bioburden. Wound Measurements and Assessment WC - Nurse 1 - General Ulcer Measurement Start: 02/26/18 15:00 Freq: Status: Active Protocol: Activity Type Activity Date Activity User E-Sign Co-Sign Detail Recorded Client Recorded Date Recorded By Document 02/26/18 15:04 [id number] 02/26/18 15:07 JOSE 02/26/18 15:04 Wound Center Nurse 1 [Ulcer Assessment] #1 L Vaz -Combined with other wound No -Current Size (cm) - Length 2.5 -Current Size (cm) - Width 2.2 -Current Size (cm) - Depth 0.3 -Total Square Cm 5.50 -Photo Taken Yes -Epithelialization None Present -Tunneling No -Undermining/Tunneling No -Circular Undermining No -Exudate Amt Medium (34-66%) -Exudate Type Serosanguineous -Wound Margin Flat & Intact -Granulation Amt Large (67-100%) -Granulation Quality Red -Slough/Fibrin Yes -Necrosis Amt Small (1-33%) -Necrotic Tissue Type Adherent Slough -Structure Exposed N/A -Texture (Ketty-wound Skin Appearance) Assessed Localized Edema -Moisture (Ketty-wound Skin Appearance Assessed ) Dry/Scaly -Color (Ketty-wound Skin Appearance) Assessed -Temperature (Ketty-wound Skin No Abnormality Appearance) (Pt Warm) -Tenderness on Palpation (Ketty-wound No Skin Appearance) -Ulcer Cleansing Wound Cleanser -Foul Odor after Cleansing Yes, Due to Product Use -Anesthetic Used 5% Lidocaine Gel [Edema Assessment] -Lower Limb Edema Present Yes -Left Calf (cm) 42.3 -Left Ankle (cm) 23.9 Musculoskeletal: No Muscle Wasting Neurological: Cranial nerves II-XII grossly intact, Neuro grossly intact Psych/Mental Status: Normal Affect, Appropriate, Alert and oriented to time, place, person, mood and affect Debridement Note Laterality: Left - Anterolateral calf Type of Debridement: Excisional debridement Anesthesia Used: 5% Lidocaine Gel Depth: Down to and including healthy tissue, in the subcutaneous layer Percentage of wound debrided: 100 Instrument Used: 3mm curette Severity: Fat Layer Exposed Amount of bleeding with debridement: Mild Bleeding Controlled with: Compression and gauze Patient tolerated procedure well Assessment/Plan Active Problems Leg swelling (Chronic) Edema of leg (Chronic) Morbid obesity with BMI of 45.0-49.9, adult (Chronic) Assessment: This is a 57-year-old female who presented with a traumatic wound on the anterolateral aspect of the left calf. The injury occurred approximately 2 months prior to presentation, and has failed to heal appropriately. The patient presented with ralph, nonviable tissue within the wound itself. She is known to be a diabetic. Patient has undergone a battery of diagnostic tests, with results as follows: Glucose 150, sodium 140, potassium 4.8, chloride 103, BUN 15, creatinine 0.80, calcium 9.5, total protein 6.7, albumin 3.9, alkaline phosphatase 61, AST 20, ALT 35, hemoglobin A1c 8.3, white blood count 6.2, hemoglobin 14.2, hematocrit 41.1, platelets 253,000. The patient's cultures were positive for Klebsiella pneumonia, pseudomonas aeruginosa, and Streptococcus. She was placed on Levaquin 750 mg p.o. daily for a total of 10 days, and completed her course. A noninvasive lower extremity arterial study is normal, revealing triphasic waveforms at ankle level bilaterally, normal resting ankle?brachial indices bilaterally, and normal digital-brachial indices bilaterally. A venous duplex examination reveals incompetence of the left great saphenous vein below the knee. The left small saphenous vein appears competent. Plan: We are to continue the use of the Snap VAC. An excisional debridement has been performed today, and will continue on a weekly basis. A noninvasive lower extremity arterial study is normal. We will continue the use of TubiGrip compression to the left lower extremity to assist in the control of swelling and edema. She has also been encouraged to elevate her lower extremities as much as possible, and to avoid prolonged idle sitting. The patient has been encouraged to assure adequate nutrition. Optimizing glycemic control has also been advised. We will await the results of swab cultures, obtained today. The patient will return in 1 week for reassessment. Influenza vaccine was not administered today. The patient is not a smoker. Patient weighs 265 pounds. She stands 5 feet 4 inches tall. Her BMI is 45.5, which places her in a class III category. Weight loss has been recommended, and collaboration with the patient's primary care physician has been recommended.
[2018-03-05 14:54] VITALS: BP 143/72; PULSE 102; RESP 20; TEMP 36.3
--- NOTE | 2018-03-05 15:55 | HP.PCM_ITS ---
(1) Traumatic open wound of lower leg Status: Chronic Current Visit: Yes Qualifiers: Laterality: left Code(s): S81.809A - Unspecified open wound, unspecified lower leg, initial encounter (2) Leg swelling Status: Chronic Current Visit: Yes Code(s): M79.89 - Other specified soft tissue disorders (3) Edema of leg Status: Chronic Current Visit: Yes Code(s): R60.0 - Localized edema (4) Diabetes mellitus Status: Chronic Current Visit: No Code(s): E11.9 - Type 2 diabetes mellitus without complications (5) Morbid obesity with BMI of 45.0-49.9, adult Status: Chronic Current Visit: Yes Code(s): E66.01 - Morbid (severe) obesity due to excess calories; Z68.42 - Body mass index (BMI) 45.0-49.9, adult (6) COPD (chronic obstructive pulmonary disease) Status: Chronic Current Visit: No Code(s): J44.9 - Chronic obstructive pulmonary disease, unspecified (7) Coronary artery arteriosclerosis Status: Chronic Current Visit: No Code(s): I25.10 - Atherosclerotic heart disease of [place] coronary artery without angina pectoris History of Present Illness Chief Complaint: Traumatic open wound of the left lower extremity History of Wound: This is a 57-year-old diabetic female who was in her normal state of health until approximately 2 months prior to presentation. At that time, she sustained trauma to the anterolateral aspect of the left calf, striking her leg against the bed frame. A wound resulted, which has failed to heal in normal fashion. She subsequently struck her leg against the bed frame a second time, again injuring the left lower extremity in the same location. She claims to have chronic swelling in the left lower extremity, that precedes her current injury. She sleeps in a recumbent position at night. 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 Past Medical History Past Medical History: Chronic Problems Traumatic open wound of lower leg (Chronic) Leg swelling (Chronic) Edema of leg (Chronic) Diabetes mellitus (Chronic) Morbid obesity with BMI of 45.0-49.9, adult (Chronic) COPD (chronic obstructive pulmonary disease) (Chronic) Coronary artery arteriosclerosis (Chronic) Surgical History: - - The patient has a history of coronary artery stent placement. She has undergone open reduction and internal fixation of a left tibia fracture. She underwent right meniscus repair in the past. She is a Ab0. Allergies/Adverse Reactions: Allergies No Known Allergies Allergy (Verified 09/03/13 11:12) Home Medications: Ambulatory Orders Medication Instructions Recorded Hydrocodone/Acetaminophen [Vicodin 1 - 2 tablet PO Q6H PRN PRN 09/03/13 5-300 mg Tablet] Lisinopril 10 mg PO DAILY 09/03/13 Metformin [Metformin HCl] 1,000 mg PO BID 09/03/13 Metoprolol Tartrate 50 mg PO DAILY 09/03/13 RX: Aspirin E.C. [Ecotrin] 81 mg PO DAILY@0800 09/03/13 Dulaglutide [Trulicity] 0.75 mg SQ 01/02/18 Fluticasone/Vilanterol [Breo 1 each IH 01/02/18 Ellipta 200-25 Mcg INH] Insulin Glargine,Hum.rec.anlog 56 unit BID 01/02/18 [Lantus] Sitagliptin Phosphate [Januvia] 25 mg PO DAILY 01/02/18 Tiotropium Howard [Spiriva] 18 mcg IH 01/02/18 - Family History Paternal - - The patient's father at the age of 78 with history of chronic obstructive pulmonary disease. The patient's mother at the age of 84 with history of chronic obstructive pulmonary disease. Smoking Status: Former smoker Tobacco Use: Non-smoker Review of Systems Constitutional: Denies: Chills, Fever, Weight Change Eyes: Denies: Pain, Vision Change HEENT: Denies: Difficulty Hearing, Difficulty Swallowing, Sinus Congestion Cardiovascular: Denies: Chest Pain, Palpitations Respiratory: Denies: Cough, Shortness of Breath Gastrointestinal: Denies: Diarrhea, Nausea, Vomiting Genitourinary: Denies: Dysuria, Hematuria Endocrine: Denies: Heat/ Cold Intolerance, Polydipsia, Polyuria Hematologic/ Lymphatic: Denies: Easy Bruising, Easy Bleeding - Physical Exam Vital Signs Temp Pulse Resp BP Pulse Ox 97.3 F L 102 H 20 H 143/72 H 94 03/05/18 14:54 03/05/18 14:54 03/05/18 14:54 03/05/18 14:54 02/22/18 00:27 General: Alert, Oriented x3, Cooperative, No apparent distress, Well developed, Well nourished HEENT: Atraumatic, PERRLA, EOMI, Normocephalic Oral: Moist Mucosa Neck: No JVD Lungs: Normal air movement Abdomen: Non-Distended Extremities: No clubbing, No cyanosis, No Calf Tenderness, - - Mild swelling and edema persist in the left lower extremity. The traumatic wound on the left lateral calf is generally pink and healthy in appearance, with active granulation tissue. There is a moderate amount of bioburden and nonviable tissue. There is no obvious sign of infection or cellulitis. Wound dimensions are documented elsewhere. Skin: No rashes Wound Measurements and Assessment WC - Nurse 1 - General Ulcer Measurement Start: 02/26/18 15:00 Freq: Status: Active Protocol: Activity Type Activity Date Activity User E-Sign Co-Sign Detail Recorded Client Recorded Date Recorded By Document 03/05/18 14:54 DL [id number] 03/05/18 15:02 DL 03/05/18 14:54 Wound Center Nurse 1 [Ulcer Assessment] #1 L Vaz -Current Size (cm) - Length 2.6 -Current Size (cm) - Width 2.4 -Current Size (cm) - Depth 0.4 -Total Square Cm 6.24 -Photo Taken No -Exudate Amt Medium (34-66%) -Exudate Type Serosanguineous -Wound Margin Distinct, Outline Attached -Granulation Amt Medium (34-66%) -Granulation Quality Red -Necrosis Amt Medium (34-66%) -Necrotic Tissue Type Adherent Slough -Structure Exposed N/A -Texture (Ketty-wound Skin Appearance) Scarring -Moisture (Ketty-wound Skin Appearance No Abnormality ) -Color (Ketty-wound Skin Appearance) Hemosiderin Staining -Temperature (Ketty-wound Skin No Abnormality Appearance) (Pt Warm) -Ulcer Cleansing Wound Cleanser -Foul Odor after Cleansing No -Anesthetic Used 4% Lidocaine Solution [Edema Assessment] -Left Calf (cm) 42 -Left Ankle (cm) 24.4 Musculoskeletal: No Muscle Wasting Neurological: Cranial nerves II-XII grossly intact, Neuro grossly intact Psych/Mental Status: Normal Affect, Appropriate, Alert and oriented to time, place, person, mood and affect Debridement Note Laterality: Left - Lateral calf Type of Debridement: Excisional debridement Anesthesia Used: 5% Lidocaine Gel Depth: Down to and including healthy tissue, in the subcutaneous layer Percentage of wound debrided: 100 Instrument Used: 3mm curette Severity: Fat Layer Exposed Amount of bleeding with debridement: Mild Bleeding Controlled with: Compression and gauze Patient did not tolerate procedure well The patient did not tolerate debridement today well. She seemed to experience discomfort during the debridement process. She became somewhat tearful, more so than previous visits. She appears to have an emotional component to her demeanor today. Adequate topical anesthesia was administered, however, despite the patient's apparent discomfort during the debridement process. Assessment/Plan Active Problems Traumatic open wound of lower leg (Chronic) Leg swelling (Chronic) Edema of leg (Chronic) Morbid obesity with BMI of 45.0-49.9, adult (Chronic) Assessment: This is a 57-year-old female who presented with a traumatic wound on the anterolateral aspect of the left calf. The injury occurred approximately 2 months prior to presentation, and has failed to heal appropriately. The patient presented with ralph, nonviable tissue within the wound itself. She is known to be a diabetic. Patient has undergone a battery of diagnostic tests, with results as follows: Glucose 150, sodium 140, potassium 4.8, chloride 103, BUN 15, creatinine 0.80, calcium 9.5, total protein 6.7, albumin 3.9, alkaline phosphatase 61, AST 20, ALT 35, hemoglobin A1c 8.3, white blood count 6.2, hemoglobin 14.2, hematocrit 41.1, platelets 253,000. The patient's cultures were positive for Klebsiella pneumonia, pseudomonas aeruginosa, and Streptococcus. She was placed on Levaquin 750 mg p.o. daily for a total of 10 days, and completed her course. A noninvasive lower extremity arterial study is normal, revealing triphasic waveforms at ankle level bilaterally, normal resting ankle?brachial indices bilaterally, and normal digital-brachial indices bilaterally. A venous duplex examination reveals incompetence of the left great saphenous vein below the knee. The left small saphenous vein appears competent. Results of the patient's cultures from 1 week ago have been reviewed. She is growing to Staphylococcus species, Staphylococcus pseudintermedius and Staphylococcus epidermidis. Sensitivities have been reviewed. Unfortunately, a sensitivity to trimethoprim/sulfamethoxazole for Staph epi was not reported. Discussion was undertaken with our clinical pharmacist, Barb, and after careful consideration the decision was made to start the patient on Linezolid, aware the patient would have only a small amount of [id number] co-pay. The prescription was provided for Linezolid 600 milligrams twice daily for 10 days. Plan: We are to continue the use of the Snap VAC. An excisional debridement has been performed today, and will continue on a weekly basis. A noninvasive lower extremity arterial study is normal. We will continue the use of TubiGrip compression to the left lower extremity to assist in the control of swelling and edema. She has also been encouraged to elevate her lower extremities as much as possible, and to avoid prolonged idle sitting. The patient has been encouraged to assure adequate nutrition. Optimizing glycemic control has also been advised. The patient is to be given a prescription for Linezolid 600 mg p.o. twice daily for 10 days. The patient will return in 1 week for reassessment. Influenza va ccine was not administered today. The patient is not a smoker. Patient weighs 265 pounds. She stands 5 feet 4 inches tall. Her BMI is 45.5, which places her in a class III category. Weight loss has been recommended, and collaboration with the patient's primary care physician has been recommended.
[2018-03-12 14:54] VITALS: BP 139/57; PULSE 94; RESP 18; TEMP 36.2
--- NOTE | 2018-03-12 15:31 | HP.PCM_ITS ---
(1) Traumatic open wound of lower leg Status: Chronic Current Visit: Yes Qualifiers: Laterality: left Code(s): S81.809A - Unspecified open wound, unspecified lower leg, initial encounter (2) Leg swelling Status: Chronic Current Visit: Yes Code(s): M79.89 - Other specified soft tissue disorders (3) Edema of leg Status: Chronic Current Visit: Yes Code(s): R60.0 - Localized edema (4) Diabetes mellitus Status: Chronic Current Visit: No Code(s): E11.9 - Type 2 diabetes mellitus without complications (5) Morbid obesity with BMI of 45.0-49.9, adult Status: Chronic Current Visit: Yes Code(s): E66.01 - Morbid (severe) obesity due to excess calories; Z68.42 - Body mass index (BMI) 45.0-49.9, adult (6) COPD (chronic obstructive pulmonary disease) Status: Chronic Current Visit: No Code(s): J44.9 - Chronic obstructive pulmonary disease, unspecified (7) Coronary artery arteriosclerosis Status: Chronic Current Visit: No Code(s): I25.10 - Atherosclerotic heart disease of [place] coronary artery without angina pectoris History of Present Illness Chief Complaint: Traumatic open wound of the left lower extremity History of Wound: This is a 57-year-old diabetic female who was in her normal state of health until approximately 2 months prior to presentation. At that time, she sustained trauma to the anterolateral aspect of the left calf, striking her leg against the bed frame. A wound resulted, which has failed to heal in normal fashion. She subsequently struck her leg against the bed frame a second time, again injuring the left lower extremity in the same location. She claims to have chronic swelling in the left lower extremity, that precedes her current injury. She sleeps in a recumbent position at night. 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 Past Medical History Past Medical History: Chronic Problems Traumatic open wound of lower leg (Chronic) Leg swelling (Chronic) Edema of leg (Chronic) Diabetes mellitus (Chronic) Morbid obesity with BMI of 45.0-49.9, adult (Chronic) COPD (chronic obstructive pulmonary disease) (Chronic) Coronary artery arteriosclerosis (Chronic) Surgical History: - - The patient has a history of coronary artery stent placement. She has undergone open reduction and internal fixation of a left tibia fracture. She underwent right meniscus repair in the past. She is a Ab0. Allergies/Adverse Reactions: Allergies No Known Allergies Allergy (Verified 09/03/13 11:12) Home Medications: Ambulatory Orders Medication Instructions Recorded Aspirin E.C. [Ecotrin] 81 mg PO DAILY@0800 09/03/13 Hydrocodone/Acetaminophen [Vicodin 1 - 2 tablet PO Q6H PRN PRN 09/03/13 5-300 mg Tablet] Lisinopril 10 mg PO DAILY 09/03/13 Metformin [Metformin HCl] 1,000 mg PO BID 09/03/13 Metoprolol Tartrate 50 mg PO DAILY 09/03/13 Dulaglutide [Trulicity] 0.75 mg SQ 01/02/18 Fluticasone/Vilanterol [Breo 1 each IH 01/02/18 Ellipta 200-25 Mcg INH] Insulin Glargine,Hum.rec.anlog 56 unit BID 01/02/18 [Lantus] Sitagliptin Phosphate [Januvia] 25 mg PO DAILY 01/02/18 Tiotropium [place] [Spiriva] 18 mcg IH 01/02/18 - Family History Paternal - - The patient's father at the age of 78 with history of chronic obstructive pulmonary disease. The patient's mother at the age of 84 with history of chronic obstructive pulmonary disease. Smoking Status: Former smoker Tobacco Use: Non-smoker Review of Systems Constitutional: Denies: Chills, Fever, Weight Change Eyes: Denies: Pain, Vision Change HEENT: Denies: Difficulty Hearing, Difficulty Swallowing, Sinus Congestion Cardiovascular: Denies: Chest Pain, Palpitations Respiratory: Denies: Cough, Shortness of Breath Gastrointestinal: Denies: Diarrhea, Nausea, Vomiting Genitourinary: Denies: Dysuria, Hematuria Endocrine: Denies: Heat/ Cold Intolerance, Polydipsia, Polyuria Hematologic/ Lymphatic: Denies: Easy Bruising, Easy Bleeding - Physical Exam Vital Signs Temp Pulse Resp BP Pulse Ox 97.1 F L 94 18 139/57 H 94 03/12/18 14:54 03/12/18 14:54 03/12/18 14:54 03/12/18 14:54 02/22/18 00:27 General: Alert, Oriented x3, Cooperative, No apparent distress, Well developed, Well nourished HEENT: Atraumatic, PERRLA, EOMI, Normocephalic Oral: Moist Mucosa Neck: No JVD Lungs: Normal air movement Abdomen: Non-Distended Extremities: No clubbing, No cyanosis, No Calf Tenderness, - - There is no significant swelling or edema in the patient's lower extremities. The wound on the left lateral calf is little changed in appearance. There is a small amount of bioburden. The wound margins are well beveled. There is no sign of infection or cellulitis. There is no associated erythema. Dimensions are documented elsewhere. The wound appears to be somewhat more superficial. Skin: No rashes Wound Measurements and Assessment WC - Nurse 1 - General Ulcer Measurement Start: 02/26/18 15:00 Freq: Status: Active Protocol: Activity Type Activity Date Activity User E-Sign Co-Sign Detail Recorded Client Recorded Date Recorded By Document 03/12/18 14:54 DL [id number] 03/12/18 14:59 DL 03/12/18 14:54 Wound Center Nurse 1 [Ulcer Assessment] #1 L Vaz -Current Size (cm) - Length 2.5 -Current Size (cm) - Width 2.4 -Current Size (cm) - Depth 0.3 -Total Square Cm 6.00 -Photo Taken No -Exudate Amt Small (1-33%) -Exudate Type Serosanguineous -Wound Margin Distinct, Outline Attached -Granulation Amt Medium (34-66%) -Granulation Quality Red -Necrosis Amt Medium (34-66%) -Necrotic Tissue Type Adherent Slough -Structure Exposed N/A -Texture (Ketty-wound Skin Appearance) Scarring -Moisture (Ketty-wound Skin Appearance No Abnormality ) -Color (Ketty-wound Skin Appearance) Hemosiderin Staining -Temperature (Ketty-wound Skin No Abnormality Appearance) (Pt Warm) -Tenderness on Palpation (Ketty-wound No Skin Appearance) -Ulcer Cleansing Rinsed/ Irrigated with Saline -Foul Odor after Cleansing No -Anesthetic Used 5% Lidocaine Gel [Edema Assessment] -Left Calf (cm) 43.6 -Left Ankle (cm) 24.5 WC - Nurse 2 - General Ulcer CM Notes Start: 02/26/18 15:00 Freq: Status: Active Protocol: Activity Type Activity Date Activity User E-Sign Co-Sign Detail Recorded Client Recorded Date Recorded By Document 03/12/18 15:13 DV [id number] 03/12/18 15:16 DV 03/12/18 15:13 Wound Center Nurse 2 [Procedure/Treatment] #1 L Vaz -Time 15:13 -Correct Patient Yes -Correct Side, Site, Position Yes -Correct Procedure Yes -Procedure Performed Yes -Type of Procedure Debridement -Clinical Debridement Subcutaneous -Post Debridement Size (cm) - Length 2.5 -Post Debridement Size (cm) - Width 2.5 -Post Debridement Size (cm) - Depth 0.3 -Total Square Cm 6.25 -Wound/Ulcer Outcome Not Healed -Ulcer Cleansing Rinsed/ Irrigated with Saline -Foul Odor after Cleansing No -Bioengineered Tissue No -Bleeding Controlled with Pressure -Treatment Response Procedure Tolerated Well [See Physician Procedure note for Specifics] Pain Scale: 0-10 Numeric [Pain] -Is Patient Pain Free? Yes Neurological: Cranial nerves II-XII grossly intact, Neuro grossly intact Psych/Mental Status: Normal Affect, Appropriate, Alert and oriented to time, place, person, mood and affect Debridement Note Post-Debridement Measurements/Treatment WC - Nurse 2 - General Ulcer CM Notes Start: 02/26/18 15:00 Freq: Status: Active Protocol: Activity Type Activity Date Activity User E-Sign Co-Sign Detail Recorded Client Recorded Date Recorded By Document 03/05/18 15:51 DV [id number] 03/05/18 15:56 DV Document 03/12/18 15:13 DV [id number] 03/12/18 15:16 DV 03/05/18 03/12/18 15:51 15:13 Wound Center Nurse 2 #1 L Vaz -Time 15:51 15:13 -Correct Patient Yes Yes -Correct Side, Site, Position Yes Yes -Correct Procedure Yes Yes -Procedure Performed Yes Yes -Type of Procedure Debridement Debridement -Clinical Debridement Subcutaneous Subcutaneous -Post Debridement Size (cm) - Length 2.6 2.5 -Post Debridement Size (cm) - Width 2.6 2.5 -Post Debridement Size (cm) - Depth 0.5 0.3 -Total Square Cm 6.76 6.25 -Wound/Ulcer Outcome Not Healed Not Healed -Ulcer Cleansing Rinsed/ Irrigated with Saline -Foul Odor after Cleansing No No -Bioengineered Tissue No No -Bleeding Controlled with Pressure Pressure -Treatment Response Procedure Procedure Tolerated Well Tolerated Well Pain Scale: 0-10 Numeric Is Patient Pain Free? Yes Yes Laterality: Left - Lateral calf Type of Debridement: Excisional debridement Anesthesia Used: 5% Lidocaine Gel Depth: Down to and including healthy tissue, in the subcutaneous layer Percentage of wound debrided: 100 Instrument Used: 7mm curette Severity: Fat Layer Exposed Amount of bleeding with debridement: Mild Bleeding Controlled with: Compression and gauze Patient tolerated procedure well Assessment/Plan Active Problems Traumatic open wound of lower leg (Chronic) Leg swelling (Chronic) Edema of leg (Chronic) Morbid obesity with BMI of 45.0-49.9, adult (Chronic) Assessment: This is a 57-year-old female who presented with a traumatic wound on the anterolateral aspect of the left calf. The injury occurred approximately 2 months prior to presentation, and has failed to heal appropriately. The patient presented with ralph, nonviable tissue within the wound itself. She is known to be a diabetic. Patient has undergone a battery of diagnostic tests, with results as follows: Glucose 150, sodium 140, potassium 4.8, chloride 103, BUN 15, creatinine 0.80, calcium 9.5, total protein 6.7, albumin 3.9, alkaline phosphatase 61, AST 20, ALT 35, hemoglobin A1c 8.3, white blood count 6.2, hemoglobin 14.2, hematocrit 41.1, platelets 253,000. The patient's cultures were positive for Klebsiella pneumonia, pseudomonas aeruginosa, and Streptococcus. She was placed on Levaquin 750 mg p.o. daily for a total of 10 days, and completed her course. A noninvasive lower extremity arterial study is normal, revealing triphasic waveforms at ankle level bilaterally, normal resting ankle?brachial indices bilaterally, and normal digital-brachial indices bilaterally. A venous duplex examination reveals incompetence of the left great saphenous vein below the knee. The left small saphenous vein appears competent. Results of the patient's cultures from 1 week ago have been reviewed. She is growing to Staphylococcus species, Staphylococcus pseudintermedius and Staphylococcus epidermidis. Sensitivities have been reviewed. Unfortunately, a sensitivity to trimethoprim/sulfamethoxazole for Staph epi was not reported. Discussion was undertaken with our clinical pharmacist, Barb, and after careful consideration the decision was made to start the patient on Linezolid, aware the patient would have only a small amount of [id number] co-pay. The prescription was provided for Linezolid 600 milligrams twice daily for 10 days. Plan: We are to continue the use of the Snap VAC. An excisional debridement has been performed today, and will continue on a weekly basis. A noninvasive lower extremity arterial study is normal. We will continue the use of TubiGrip compression to the left lower extremity to assist in the control of swelling and edema. She has also been encouraged to elevate her lower extremities as much as possible, and to avoid prolonged idle sitting. The patient has been encouraged to assure adequate nutrition. Optimizing glycemic control has also been advised. The patient has been given a prescription for Linezolid 600 mg p.o. twice daily for 10 days, which is nearly complete. The patient will return in 1 week for reassessment. Influenza vaccine was not administered today. The patient is not a smoker. Patient weighs 265 pounds. She stands 5 feet 4 inches tall. Her BMI is 45.5, which places her in a class III category. Weight loss has been recommended, and collaboration with the patient's primary care physician has been recommended.
[2018-03-19 15:54] VITALS: BP 158/70; PULSE 96; RESP 18; TEMP 36.8
--- NOTE | 2018-03-19 16:45 | PCM.WC.HP ---
(1) Traumatic open wound of lower leg Status: Chronic Current Visit: Yes Qualifiers: Laterality: left Code(s): S81.809A - Unspecified open wound, unspecified lower leg, initial encounter (2) Leg swelling Status: Chronic Current Visit: Yes Code(s): M79.89 - Other specified soft tissue disorders (3) Edema of leg Status: Chronic Current Visit: Yes Code(s): R60.0 - Localized edema (4) Diabetes mellitus Status: Chronic Current Visit: No Code(s): E11.9 - Type 2 diabetes mellitus without complications (5) Morbid obesity with BMI of 45.0-49.9, adult Status: Chronic Current Visit: Yes Code(s): E66.01 - Morbid (severe) obesity due to excess calories; Z68.42 - Body mass index (BMI) 45.0-49.9, adult (6) COPD (chronic obstructive pulmonary disease) Status: Chronic Current Visit: No Code(s): J44.9 - Chronic obstructive pulmonary disease, unspecified (7) Coronary artery arteriosclerosis Status: Chronic Current Visit: No Code(s): I25.10 - Atherosclerotic heart disease of [place] coronary artery without angina pectoris History of Present Illness Chief Complaint: Traumatic open wound of the left lower extremity History of Wound: This is a 57-year-old diabetic female who was in her normal state of health until approximately 2 months prior to presentation. At that time, she sustained trauma to the anterolateral aspect of the left calf, striking her leg against the bed frame. A wound resulted, which has failed to heal in normal fashion. She subsequently struck her leg against the bed frame a second time, again injuring the left lower extremity in the same location. She claims to have chronic swelling in the left lower extremity, that precedes her current injury. She sleeps in a recumbent position at night. 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 Past Medical History Past Medical History: Chronic Problems Traumatic open wound of lower leg (Chronic) Leg swelling (Chronic) Edema of leg (Chronic) Diabetes mellitus (Chronic) Morbid obesity with BMI of 45.0-49.9, adult (Chronic) COPD (chronic obstructive pulmonary disease) (Chronic) Coronary artery arteriosclerosis (Chronic) Surgical History: - - The patient has a history of coronary artery stent placement. She has undergone open reduction and internal fixation of a left tibia fracture. She underwent right meniscus repair in the past. She is a Ab0. Allergies/Adverse Reactions: Allergies No Known Allergies Allergy (Verified 09/03/13 11:12) Home Medications: Ambulatory Orders Medication Instructions Recorded Aspirin E.C. [Ecotrin] 81 mg PO DAILY@0800 09/03/13 Hydrocodone/Acetaminophen [Vicodin 1 - 2 tablet PO Q6H PRN PRN 09/03/13 5-300 mg Tablet] Lisinopril 10 mg PO DAILY 09/03/13 Metformin [Metformin HCl] 1,000 mg PO BID 09/03/13 Metoprolol Tartrate 50 mg PO DAILY 09/03/13 Dulaglutide [Trulicity] 0.75 mg SQ 01/02/18 Fluticasone/Vilanterol [Breo 1 each IH 01/02/18 Ellipta 200-25 Mcg INH] Insulin Glargine,Hum.rec.anlog 56 unit BID 01/02/18 [Lantus] Sitagliptin Phosphate [Januvia] 25 mg PO DAILY 01/02/18 Tiotropium [place] [Spiriva] 18 mcg IH 01/02/18 - Family History Paternal - - The patient's father at the age of 78 with history of chronic obstructive pulmonary disease. The patient's mother at the age of 84 with history of chronic obstructive pulmonary disease. Smoking Status: Former smoker Tobacco Use: Non-smoker Review of Systems Constitutional: Denies: Chills, Fever, Weight Change Eyes: Denies: Pain, Vision Change HEENT: Denies: Difficulty Hearing, Difficulty Swallowing, Sinus Congestion Cardiovascular: Denies: Chest Pain, Palpitations Respiratory: Denies: Cough, Shortness of Breath Gastrointestinal: Denies: Diarrhea, Nausea, Vomiting Genitourinary: Denies: Dysuria, Hematuria Endocrine: Denies: Heat/ Cold Intolerance, Polydipsia, Polyuria Hematologic/ Lymphatic: Denies: Easy Bruising, Easy Bleeding - Physical Exam Vital Signs Temp Pulse Resp BP Pulse Ox 98.2 F 96 18 158/70 H 94 03/19/18 15:54 03/19/18 15:54 03/19/18 15:54 03/19/18 15:54 02/22/18 00:27 General: Alert, Oriented x3, Cooperative, No apparent distress, Well developed, Well nourished HEENT: Atraumatic, PERRLA, EOMI, Normocephalic Oral: Moist Mucosa Neck: No JVD Lungs: Normal air movement Abdomen: Non-Distended Extremities: No clubbing, No cyanosis, No edema, No Calf Tenderness, - - There is no significant swelling or edema in the left lower extremity. The traumatic wound is little changed in size or appearance. There is a small amount of bioburden. There is a small amount of fibrotic material. The remainder of the wound is generally pink and healthy in appearance, with evidence of active granulation tissue. Wound margins are well beveled. Dimensions are documented elsewhere. There is no sign of infection or cellulitis. Skin: No rashes Wound Measurements and Assessment WC - Nurse 1 - General Ulcer Measurement Start: 02/26/18 15:00 Freq: Status: Active Protocol: Activity Type Activity Date Activity User E-Sign Co-Sign Detail Recorded Client Recorded Date Recorded By Document 03/19/18 15:54 [id number] 03/19/18 15:56 03/19/18 15:54 Wound Center Nurse 1 [Ulcer Assessment] #1 L Vaz -Combined with other wound No -Current Size (cm) - Length 2.6 -Current Size (cm) - Width 2.4 -Current Size (cm) - Depth 0.2 -Total Square Cm 6.24 -Photo Taken No -Epithelialization Large 67-100% -Tunneling No -Undermining/Tunneling No -Circular Undermining No -Exudate Amt Small (1-33%) -Exudate Type Serosanguineous -Wound Margin Flat & Intact -Granulation Amt Large (67-100%) -Granulation Quality Red -Slough/Fibrin Yes -Necrosis Amt Small (1-33%) -Necrotic Tissue Type Adherent Slough -Structure Exposed N/A -Texture (Ketty-wound Skin Appearance) Assessed Localized Edema -Moisture (Ketty-wound Skin Appearance Assessed ) Dry/Scaly -Color (Ketty-wound Skin Appearance) Assessed -Temperature (Ketty-wound Skin No Abnormality Appearance) (Pt Warm) -Tenderness on Palpation (Ketty-wound No Skin Appearance) -Ulcer Cleansing Wound Cleanser -Foul Odor after Cleansing No -Anesthetic Used 5% Lidocaine Gel [Edema Assessment] -Lower Limb Edema Present Yes -Left Calf (cm) 42.0 -Left Ankle (cm) 24.4 WC - Nurse 2 - General Ulcer CM Notes Start: 02/26/18 15:00 Freq: Status: Active Protocol: Activity Type Activity Date Activity User E-Sign Co-Sign Detail Recorded Client Recorded Date Recorded By Document 03/19/18 16:37 DV [id number] 03/19/18 16:41 DV 03/19/18 16:37 Wound Center Nurse 2 [Procedure/Treatment] #1 L Vaz -Time 16:38 -Correct Patient Yes -Correct Side, Site, Position Yes -Correct Procedure Yes -Procedure Performed Yes -Type of Procedure Debridement -Clinical Debridement Subcutaneous -Post Debridement Size (cm) - Length 2.8 -Post Debridement Size (cm) - Width 2.5 -Post Debridement Size (cm) - Depth 0.2 -Total Square Cm 7.00 -Wound/Ulcer Outcome Not Healed -Ulcer Cleansing Rinsed/ Irrigated with Saline -Foul Odor after Cleansing No -Bioengineered Tissue No -Bleeding Controlled with Pressure -Treatment Response Procedure Tolerated Well [See Physician Procedure note for Specifics] Pain Scale: 0-10 Numeric [Pain] -Is Patient Pain Free? Yes Musculoskeletal: No Muscle Wasting Neurological: Neuro grossly intact Psych/Mental Status: Normal Affect, Appropriate, Alert and oriented to time, place, person, mood and affect Debridement Note Post-Debridement Measurements/Treatment WC - Nurse 2 - General Ulcer CM Notes Start: 02/26/18 15:00 Freq: Status: Active Protocol: Activity Type Activity Date Activity User E-Sign Co-Sign Detail Recorded Client Recorded Date Recorded By Document 03/05/18 15:51 DV [id number] 03/05/18 15:56 DV Document 03/12/18 15:13 DV [id number] 03/12/18 15:16 DV Document 03/19/18 16:37 DV [id number] 03/19/18 16:41 DV 03/05/18 03/12/18 03/19/18 15:51 15:13 16:37 Wound Center Nurse 2 #1 L Vaz -Time 15:51 15:13 16:38 -Correct Patient Yes Yes Yes -Correct Side, Site, Position Yes Yes Yes -Correct Procedure Yes Yes Yes -Procedure Performed Yes Yes Yes -Type of Procedure Debridement Debridement Debridement -Clinical Debridement Subcutaneous Subcutaneous Subcutaneous -Post Debridement Size (cm) - Length 2.6 2.5 2.8 -Post Debridement Size (cm) - Width 2.6 2.5 2.5 -Post Debridement Size (cm) - Depth 0.5 0.3 0.2 -Total Square Cm 6.76 6.25 7.00 -Wound/Ulcer Outcome Not Healed Not Healed Not Healed -Ulcer Cleansing Rinsed/ Rinsed/ Irrigated with Irrigated with Saline Saline -Foul Odor after Cleansing No No No -Bioengineered Tissue No No No -Bleeding Controlled with Pressure Pressure Pressure -Treatment Response Procedure Procedure Procedure Tolerated Well Tolerated Well Tolerated Well Pain Scale: 0-10 Numeric Is Patient Pain Free? Yes Yes Yes Laterality: Left - Lateral calf Type of Debridement: Excisional debridement Anesthesia Used: 5% Lidocaine Gel Depth: Down to and including healthy tissue, in the subcutaneous layer Percentage of wound debrided: 100 Instrument Used: 7mm curette Severity: Fat Layer Exposed Amount of bleeding with debridement: Mild Bleeding Controlled with: Compression and gauze Patient tolerated procedure well Assessment/Plan Active Problems Traumatic open wound of lower leg (Chronic) Leg swelling (Chronic) Edema of leg (Chronic) Morbid obesity with BMI of 45.0-49.9, adult (Chronic) Assessment: This is a 57-year-old female who presented with a traumatic wound on the anterolateral aspect of the left calf. The injury occurred approximately 2 months prior to presentation, and has failed to heal appropriately. The patient presented with ralph, nonviable tissue within the wound itself. She is known to be a diabetic. Patient has undergone a battery of diagnostic tests, with results as follows: Glucose 150, sodium 140, potassium 4.8, chloride 103, BUN 15, creatinine 0.80, calcium 9.5, total protein 6.7, albumin 3.9, alkaline phosphatase 61, AST 20, ALT 35, hemoglobin A1c 8.3, white blood count 6.2, hemoglobin 14.2, hematocrit 41.1, platelets 253,000. The patient's first cultures were positive for Klebsiella pneumonia, pseudomonas aeruginosa, and Streptococcus. She was placed on Levaquin 750 mg p.o. daily for a total of 10 days, and completed her course. A noninvasive lower extremity arterial study is normal, revealing triphasic waveforms at ankle level bilaterally, normal resting ankle?brachial indices bilaterally, and normal digital-brachial indices bilaterally. A venous duplex examination reveals incompetence of the left great saphenous vein below the knee. The left small saphenous vein appears competent. Results of the patient's most recent cultures have been reviewed. She is growing to Staphylococcus species, Staphylococcus pseudintermedius and Staphylococcus epidermidis. Sensitivities have been reviewed. Unfortunately, a sensitivity to trimethoprim/sulfamethoxazole for Staph epi was not reported. Discussion was undertaken with our clinical pharmacist, Barb, and after careful consideration the decision was made to start the patient on Linezolid, aware the patient would have only a small amount of [id number] co-pay. The prescription was provided for Linezolid 600 milligrams twice daily for 10 days, which is now nearly completed. Plan: Patient will be leaving for a short vacation in [place]. As result, we will put the negative pressure therapy on hold, and use collagenase Santyl topically on a daily basis. An excisional debridement has been performed today, and will continue on a weekly basis. A noninvasive lower extremity arterial study is normal. We will continue the use of TubiGrip compression to the left lower extremity to assist in the control of swelling and edema. She has also been encouraged to elevate her lower extremities as much as possible, and to avoid prolonged idle sitting. The patient has been encouraged to assure adequate nutrition. Optimizing glycemic control has also been advised. The patient has been given a prescription for Linezolid 600 mg p.o. twice daily for 10 days, which is nearly complete. The patient will return in 1 week for reassessment. Influenza vaccine was not administered today. The patient is not a smoker. Patient weighs 265 pounds. She stands 5 feet 4 inches tall. Her BMI is 45.5, which places her in a class III category. Weight loss has been recommended, and collaboration with the patient's primary care physician has been recommended.
--- NOTE | 2018-03-19 16:50 | HP.PCM_ITS ---
(1) Traumatic open wound of lower leg Status: Chronic Current Visit: Yes Qualifiers: Laterality: left Code(s): S81.809A - Unspecified open wound, unspecified lower leg, initial encounter (2) Leg swelling Status: Chronic Current Visit: Yes Code(s): M79.89 - Other specified soft tissue disorders (3) Edema of leg Status: Chronic Current Visit: Yes Code(s): R60.0 - Localized edema (4) Diabetes mellitus Status: Chronic Current Visit: No Code(s): E11.9 - Type 2 diabetes mellitus without complications (5) Morbid obesity with BMI of 45.0-49.9, adult Status: Chronic Current Visit: Yes Code(s): E66.01 - Morbid (severe) obesity due to excess calories; Z68.42 - Body mass index (BMI) 45.0-49.9, adult (6) COPD (chronic obstructive pulmonary disease) Status: Chronic Current Visit: No Code(s): J44.9 - Chronic obstructive pulmonary disease, unspecified (7) Coronary artery arteriosclerosis Status: Chronic Current Visit: No Code(s): I25.10 - Atherosclerotic heart disease of [place] coronary artery without angina pectoris History of Present Illness Chief Complaint: Traumatic open wound of the left lower extremity History of Wound: This is a 57-year-old diabetic female who was in her normal state of health until approximately 2 months prior to presentation. At that time, she sustained trauma to the anterolateral aspect of the left calf, striking her leg against the bed frame. A wound resulted, which has failed to heal in normal fashion. She subsequently struck her leg against the bed frame a second time, again injuring the left lower extremity in the same location. She claims to have chronic swelling in the left lower extremity, that precedes her current injury. She sleeps in a recumbent position at night. 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 Past Medical History Past Medical History: Chronic Problems Traumatic open wound of lower leg (Chronic) Leg swelling (Chronic) Edema of leg (Chronic) Diabetes mellitus (Chronic) Morbid obesity with BMI of 45.0-49.9, adult (Chronic) COPD (chronic obstructive pulmonary disease) (Chronic) Coronary artery arteriosclerosis (Chronic) Surgical History: - - The patient has a history of coronary artery stent placement. She has undergone open reduction and internal fixation of a left tibia fracture. She underwent right meniscus repair in the past. She is a Ab0. Allergies/Adverse Reactions: Allergies No Known Allergies Allergy (Verified 09/03/13 11:12) Home Medications: Ambulatory Orders Medication Instructions Recorded Aspirin E.C. [Ecotrin] 81 mg PO DAILY@0800 09/03/13 Hydrocodone/Acetaminophen [Vicodin 1 - 2 tablet PO Q6H PRN PRN 09/03/13 5-300 mg Tablet] Lisinopril 10 mg PO DAILY 09/03/13 Metformin [Metformin HCl] 1,000 mg PO BID 09/03/13 Metoprolol Tartrate 50 mg PO DAILY 09/03/13 Dulaglutide [Trulicity] 0.75 mg SQ 01/02/18 Fluticasone/Vilanterol [Breo 1 each IH 01/02/18 Ellipta 200-25 Mcg INH] Insulin Glargine,Hum.rec.anlog 56 unit BID 01/02/18 [Lantus] Sitagliptin Phosphate [Januvia] 25 mg PO DAILY 01/02/18 Tiotropium [place] [Spiriva] 18 mcg IH 01/02/18 - Family History Paternal - - The patient's father at the age of 78 with history of chronic obstructive pulmonary disease. The patient's mother at the age of 84 with history of chronic obstructive pulmonary disease. Smoking Status: Former smoker Tobacco Use: Non-smoker Review of Systems Constitutional: Denies: Chills, Fever, Weight Change Eyes: Denies: Pain, Vision Change HEENT: Denies: Difficulty Hearing, Difficulty Swallowing, Sinus Congestion Cardiovascular: Denies: Chest Pain, Palpitations Respiratory: Denies: Cough, Shortness of Breath Gastrointestinal: Denies: Diarrhea, Nausea, Vomiting Genitourinary: Denies: Dysuria, Hematuria Endocrine: Denies: Heat/ Cold Intolerance, Polydipsia, Polyuria Hematologic/ Lymphatic: Denies: Easy Bruising, Easy Bleeding - Physical Exam Vital Signs Temp Pulse Resp BP Pulse Ox 98.2 F 96 18 158/70 H 94 03/19/18 15:54 03/19/18 15:54 03/19/18 15:54 03/19/18 15:54 02/22/18 00:27 General: Alert, Oriented x3, Cooperative, No apparent distress, Well developed, Well nourished HEENT: Atraumatic, PERRLA, EOMI, Normocephalic Oral: Moist Mucosa Neck: No JVD Lungs: Normal air movement Abdomen: Non-Distended Extremities: No clubbing, No cyanosis, No edema, No Calf Tenderness, - - There is no significant swelling or edema in the left lower extremity. The traumatic wound is little changed in size or appearance. There is a small amount of bioburden. There is a small amount of fibrotic material. The remainder of the wound is generally pink and healthy in appearance, with evidence of active granulation tissue. Wound margins are well beveled. Dimensions are documented elsewhere. There is no sign of infection or cellulitis. Skin: No rashes Wound Measurements and Assessment WC - Nurse 1 - General Ulcer Measurement Start: 02/26/18 15:00 Freq: Status: Active Protocol: Activity Type Activity Date Activity User E-Sign Co-Sign Detail Recorded Client Recorded Date Recorded By Document 03/19/18 15:54 [id number] 03/19/18 15:56 03/19/18 15:54 Wound Center Nurse 1 [Ulcer Assessment] #1 L Vaz -Combined with other wound No -Current Size (cm) - Length 2.6 -Current Size (cm) - Width 2.4 -Current Size (cm) - Depth 0.2 -Total Square Cm 6.24 -Photo Taken No -Epithelialization Large 67-100% -Tunneling No -Undermining/Tunneling No -Circular Undermining No -Exudate Amt Small (1-33%) -Exudate Type Serosanguineous -Wound Margin Flat & Intact -Granulation Amt Large (67-100%) -Granulation Quality Red -Slough/Fibrin Yes -Necrosis Amt Small (1-33%) -Necrotic Tissue Type Adherent Slough -Structure Exposed N/A -Texture (Ketty-wound Skin Appearance) Assessed Localized Edema -Moisture (Ketty-wound Skin Appearance Assessed ) Dry/Scaly -Color (Ketty-wound Skin Appearance) Assessed -Temperature (Ketty-wound Skin No Abnormality Appearance) (Pt Warm) -Tenderness on Palpation (Ketty-wound No Skin Appearance) -Ulcer Cleansing Wound Cleanser -Foul Odor after Cleansing No -Anesthetic Used 5% Lidocaine Gel [Edema Assessment] -Lower Limb Edema Present Yes -Left Calf (cm) 42.0 -Left Ankle (cm) 24.4 WC - Nurse 2 - General Ulcer CM Notes Start: 02/26/18 15:00 Freq: Status: Active Protocol: Activity Type Activity Date Activity User E-Sign Co-Sign Detail Recorded Client Recorded Date Recorded By Document 03/19/18 16:37 DV [id number] 03/19/18 16:41 DV 03/19/18 16:37 Wound Center Nurse 2 [Procedure/Treatment] #1 L Vaz -Time 16:38 -Correct Patient Yes -Correct Side, Site, Position Yes -Correct Procedure Yes -Procedure Performed Yes -Type of Procedure Debridement -Clinical Debridement Subcutaneous -Post Debridement Size (cm) - Length 2.8 -Post Debridement Size (cm) - Width 2.5 -Post Debridement Size (cm) - Depth 0.2 -Total Square Cm 7.00 -Wound/Ulcer Outcome Not Healed -Ulcer Cleansing Rinsed/ Irrigated with Saline -Foul Odor after Cleansing No -Bioengineered Tissue No -Bleeding Controlled with Pressure -Treatment Response Procedure Tolerated Well [See Physician Procedure note for Specifics] Pain Scale: 0-10 Numeric [Pain] -Is Patient Pain Free? Yes Musculoskeletal: No Muscle Wasting Neurological: Neuro grossly intact Psych/Mental Status: Normal Affect, Appropriate, Alert and oriented to time, place, person, mood and affect Debridement Note Post-Debridement Measurements/Treatment WC - Nurse 2 - General Ulcer CM Notes Start: 02/26/18 15:00 Freq: Status: Active Protocol: Activity Type Activity Date Activity User E-Sign Co-Sign Detail Recorded Client Recorded Date Recorded By Document 03/05/18 15:51 DV [id number] 03/05/18 15:56 DV Document 03/12/18 15:13 DV [id number] 03/12/18 15:16 DV Document 03/19/18 16:37 DV [id number] 03/19/18 16:41 DV 03/05/18 03/12/18 03/19/18 15:51 15:13 16:37 Wound Center Nurse 2 #1 L Vaz -Time 15:51 15:13 16:38 -Correct Patient Yes Yes Yes -Correct Side, Site, Position Yes Yes Yes -Correct Procedure Yes Yes Yes -Procedure Performed Yes Yes Yes -Type of Procedure Debridement Debridement Debridement -Clinical Debridement Subcutaneous Subcutaneous Subcutaneous -Post Debridement Size (cm) - Length 2.6 2.5 2.8 -Post Debridement Size (cm) - Width 2.6 2.5 2.5 -Post Debridement Size (cm) - Depth 0.5 0.3 0.2 -Total Square Cm 6.76 6.25 7.00 -Wound/Ulcer Outcome Not Healed Not Healed Not Healed -Ulcer Cleansing Rinsed/ Rinsed/ Irrigated with Irrigated with Saline Saline -Foul Odor after Cleansing No No No -Bioengineered Tissue No No No -Bleeding Controlled with Pressure Pressure Pressure -Treatment Response Procedure Procedure Procedure Tolerated Well Tolerated Well Tolerated Well Pain Scale: 0-10 Numeric Is Patient Pain Free? Yes Yes Yes Laterality: Left - Lateral calf Type of Debridement: Excisional debridement Anesthesia Used: 5% Lidocaine Gel Depth: Down to and including healthy tissue, in the subcutaneous layer Percentage of wound debrided: 100 Instrument Used: 7mm curette Severity: Fat Layer Exposed Amount of bleeding with debridement: Mild Bleeding Controlled with: Compression and gauze Patient tolerated procedure well Assessment/Plan Active Problems Traumatic open wound of lower leg (Chronic) Leg swelling (Chronic) Edema of leg (Chronic) Morbid obesity with BMI of 45.0-49.9, adult (Chronic) Assessment: This is a 57-year-old female who presented with a traumatic wound on the anterolateral aspect of the left calf. The injury occurred approximately 2 months prior to presentation, and has failed to heal appropriately. The patient presented with ralph, nonviable tissue within the wound itself. She is known to be a diabetic. Patient has undergone a battery of diagnostic tests, with results as follows: Glucose 150, sodium 140, potassium 4.8, chloride 103, BUN 15, creatinine 0.80, calcium 9.5, total protein 6.7, albumin 3.9, alkaline phosphatase 61, AST 20, ALT 35, hemoglobin A1c 8.3, white blood count 6.2, hem oglobin 14.2, hematocrit 41.1, platelets 253,000. The patient's first cultures were positive for Klebsiella pneumonia, pseudomonas aeruginosa, and Streptococcus. She was placed on Levaquin 750 mg p.o. daily for a total of 10 days, and completed her course. A noninvasive lower extremity arterial study is normal, revealing triphasic waveforms at ankle level bilaterally, normal resting ankle?brachial indices bilaterally, and normal digital-brachial indices bilaterally. A venous duplex examination reveals incompetence of the left great saphenous vein below the knee. The left small saphenous vein appears competent. Results of the patient's most recent cultures have been reviewed. She is growing to Staphylococcus species, Staphylococcus pseudintermedius and Staphylococcus epidermidis. Sensitivities have been reviewed. Unfortunately, a sensitivity to trimethoprim/sulfamethoxazole for Staph epi was not reported. Discussion was undertaken with our clinical pharmacist, Barb, and after careful consideration the decision was made to start the patient on Linezolid, aware the patient would have only a small amount of [id number] co-pay. The prescription was provided for Linezolid 600 milligrams twice daily for 10 days, which is now nearly completed. Plan: Patient will be leaving for a short vacation in [place]. As result, we will put the negative pressure therapy on hold, and use collagenase Santyl topically on a daily basis. An excisional debridement has been performed today, and will continue on a weekly basis. A noninvasive lower extremity arterial study is normal. We will continue the use of TubiGrip compression to the left lower extremity to assist in the control of swelling and edema. She has also been encouraged to elevate her lower extremities as much as possible, and to avoid prolonged idle sitting. The patient has been encouraged to assure adequate nutrition. Optimizing glycemic control has also been advised. The patient has been given a prescription for Linezolid 600 mg p.o. twice daily for 10 days, which is nearly complete. The patient will return in 1 week for reassessment. Influenza vaccine was not administered today. The patient is not a smoker. Patient weighs 265 pounds. She stands 5 feet 4 inches tall. Her BMI is 45.5, which places her in a class III category. Weight loss has been recommended, and collaboration with the patient's primary care physician has been recommended.
== END 2018-03-23 23:59 ==
LOC: WC 15:30
PROVIDERS: PCP Nurse Practitioner Primary Care; Referring Provider Surgery; Visit Provider Surgery
DX: S81.832A Puncture wound without foreign body, left lower leg, initial encounter (principal); R60.0 Localized edema; W22.03XA Walked into furniture, initial encounter; M79.89 Other specified soft tissue disorders; E11.9 Type 2 diabetes mellitus without complications; E66.01 Morbid (severe) obesity due to excess calories; Z68.42 Body mass index [BMI] 45.0-49.9, adult; Z71.3 Dietary counseling and surveillance; J44.9 Chronic obstructive pulmonary disease, unspecified; I25.10 Atherosclerotic heart disease of native coronary artery without angina pectoris; Z79.899 Other long term (current) drug therapy; Z79.4 Long term (current) use of insulin; Z87.891 Personal history of nicotine dependence
CPT/HCPCS: 11042; 87070; 87075; 87077; 87186; 87205; 97605

== ENCOUNTER 2018-04-23 15:30 | Outpatient (RCR) | payer OTHER, SELFPAY ==
[2018-03-24 00:30] VITALS: BP 158/70; PULSE 96; RESP 18; TEMP 36.8; O2SAT 94
[2018-03-27 11:10] VITALS: BP 150/80; PULSE 85; RESP 18; TEMP 35.8; BMI 46.1
--- NOTE | 2018-03-27 11:38 | PCM.WC.HP ---
(1) Traumatic open wound of lower leg Status: Chronic Current Visit: Yes Qualifiers: Encounter type: subsequent encounter Laterality: left Qualified Code(s): S81.802D - Unspecified open wound, left lower leg, subsequent encounter Code(s): S81.809A - Unspecified open wound, unspecified lower leg, initial encounter (2) Leg swelling Status: Chronic Current Visit: Yes Code(s): M79.89 - Other specified soft tissue disorders (3) Edema of leg Status: Chronic Current Visit: Yes Code(s): R60.0 - Localized edema (4) Diabetes mellitus Status: Chronic Current Visit: No Qualifiers: Diabetes mellitus type: type 2 Code(s): E11.9 - Type 2 diabetes mellitus without complications (5) Morbid obesity with BMI of 45.0-49.9, adult Status: Chronic Current Visit: No Code(s): E66.01 - Morbid (severe) obesity due to excess calories; Z68.42 - Body mass index (BMI) 45.0-49.9, adult (6) COPD (chronic obstructive pulmonary disease) Status: Chronic Current Visit: No Code(s): J44.9 - Chronic obstructive pulmonary disease, unspecified (7) Coronary artery arteriosclerosis Status: Chronic Current Visit: No Code(s): I25.10 - Atherosclerotic heart disease of [place] coronary artery without angina pectoris History of Present Illness Chief Complaint: Traumatic open wound of the left lower extremity History of Wound: This is a 57-year-old diabetic female who was in her normal state of health until approximately 2 months prior to presentation. At that time, she sustained trauma to the anterolateral aspect of the left calf, striking her leg against the bed frame. A wound resulted, which has failed to heal in normal fashion. She subsequently struck her leg against the bed frame a second time, again injuring the left lower extremity in the same location. She claims to have chronic swelling in the left lower extremity, that precedes her current injury. She sleeps in a recumbent position at night. 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 Past Medical History Past Medical History: Chronic Problems Traumatic open wound of lower leg (Chronic) Leg swelling (Chronic) Edema of leg (Chronic) Diabetes mellitus (Chronic) Morbid obesity with BMI of 45.0-49.9, adult (Chronic) COPD (chronic obstructive pulmonary disease) (Chronic) Coronary artery arteriosclerosis (Chronic) Surgical History: - - The patient has a history of coronary artery stent placement. She has undergone open reduction and internal fixation of a left tibia fracture. She underwent right meniscus repair in the past. She is a Ab0. Allergies/Adverse Reactions: Allergies No Known Allergies Allergy (Verified 09/03/13 11:12) Home Medications: Ambulatory Orders Medication Instructions Recorded Aspirin E.C. [Ecotrin] 81 mg PO DAILY@0800 09/03/13 Hydrocodone/Acetaminophen [Vicodin 1 - 2 tablet PO Q6H PRN PRN 09/03/13 5-300 mg Tablet] Lisinopril 10 mg PO DAILY 09/03/13 Metformin [Metformin HCl] 1,000 mg PO BID 09/03/13 Metoprolol Tartrate 50 mg PO DAILY 09/03/13 Dulaglutide [Trulicity] 0.75 mg SQ 01/02/18 Fluticasone/Vilanterol [Breo 1 each IH 01/02/18 Ellipta 200-25 Mcg INH] Insulin Glargine,Hum.rec.anlog 56 unit BID 01/02/18 [Lantus] Sitagliptin Phosphate [Januvia] 25 mg PO DAILY 01/02/18 Tiotropium [place] [Spiriva] 18 mcg IH 01/02/18 - Family History Paternal - - The patient's father at the age of 78 with history of chronic obstructive pulmonary disease. The patient's mother at the age of 84 with history of chronic obstructive pulmonary disease. Smoking Status: Former smoker Tobacco Use: Non-smoker Review of Systems Constitutional: Denies: Chills, Fever, Weight Change Eyes: Denies: Pain, Vision Change HEENT: Denies: Difficulty Hearing, Difficulty Swallowing, Sinus Congestion Cardiovascular: Denies: Chest Pain, Palpitations Respiratory: Denies: Cough, Shortness of Breath Gastrointestinal: Denies: Diarrhea, Nausea, Vomiting Genitourinary: Denies: Dysuria, Hematuria Endocrine: Denies: Heat/ Cold Intolerance, Polydipsia, Polyuria Hematologic/ Lymphatic: Denies: Easy Bruising, Easy Bleeding - Physical Exam Vital Signs Temp Pulse Resp BP Pulse Ox 96.4 F L 85 18 150/80 H 94 03/27/18 11:10 03/27/18 11:10 03/27/18 11:10 03/27/18 11:10 03/24/18 00:30 General: Alert, Oriented x3, Cooperative, No apparent distress, Well developed, Well nourished HEENT: Atraumatic, PERRLA, EOMI, Normocephalic Oral: Moist Mucosa Neck: No JVD Lungs: Normal air movement Abdomen: Non-Distended Extremities: No clubbing, No cyanosis, No Calf Tenderness, - - The swelling and edema in the left lower extremity appears to be reasonably well controlled. The wound on the left anterior tibial surface is little changed in size or appearance. Dimensions are documented elsewhere. There is no sign of infection or cellulitis. There is a moderate amount of bioburden, and a small amount of non-viable tissue. Skin: No rashes Wound Measurements and Assessment WC - Nurse 1 - General Ulcer Measurement Start: 03/27/18 11:10 Freq: Status: Active Protocol: Activity Type Activity Date Activity User E-Sign Co-Sign Detail Recorded Client Recorded Date Recorded By Document 03/27/18 11:10 DL [id number] 03/27/18 11:14 DL 03/27/18 11:10 Wound Center Nurse 1 [Ulcer Assessment] #1 L Vaz -Current Size (cm) - Length 2.1 -Current Size (cm) - Width 2.4 -Current Size (cm) - Depth 0.2 -Total Square Cm 5.04 -Photo Taken No -Epithelialization Small 1-33% -Exudate Amt Small (1-33%) -Exudate Type Serosanguineous -Wound Margin Distinct, Outline Attached -Granulation Amt Large (67-100%) -Granulation Quality Red -Necrosis Amt Small (1-33%) -Necrotic Tissue Type Adherent Slough -Structure Exposed N/A -Texture (Ketty-wound Skin Appearance) Scarring -Moisture (Ketty-wound Skin Appearance No Abnormality ) -Color (Ketty-wound Skin Appearance) Hemosiderin Staining -Temperature (Ketty-wound Skin No Abnormality Appearance) (Pt Warm) -Tenderness on Palpation (Ketty-wound Yes Skin Appearance) -Ulcer Cleansing Rinsed/ Irrigated with Saline -Foul Odor after Cleansing No -Anesthetic Used 5% Lidocaine Gel [Edema Assessment] -Left Calf (cm) 43 -Left Ankle (cm) 24 Musculoskeletal: No Muscle Wasting Neurological: Cranial nerves II-XII grossly intact, Neuro grossly intact Psych/Mental Status: Normal Affect, Appropriate, Alert and oriented to time, place, person, mood and affect Debridement Note Laterality: Left - Anterior tibial surface Type of Debridement: Excisional debridement Anesthesia Used: 5% Lidocaine Gel Depth: Down to and including healthy tissue, in the subcutaneous layer Percentage of wound debrided: 100 Instrument Used: 7mm curette Severity: Fat Layer Exposed Amount of bleeding with debridement: Mild Bleeding Controlled with: Compression and gauze Patient tolerated procedure well Assessment/Plan Active Problems Traumatic open wound of lower leg (Chronic) Leg swelling (Chronic) Edema of leg (Chronic) Assessment: This is a 57-year-old female who presented with a traumatic wound on the anterolateral aspect of the left calf. The injury occurred approximately 2 months prior to presentation, and has failed to heal appropriately. The patient presented with ralph, nonviable tissue within the wound itself. She is known to be a diabetic. Patient has undergone a battery of diagnostic tests, with results as follows: Glucose 150, sodium 140, potassium 4.8, chloride 103, BUN 15, creatinine 0.80, calcium 9.5, total protein 6.7, albumin 3.9, alkaline phosphatase 61, AST 20, ALT 35, hemoglobin A1c 8.3, white blood count 6.2, hemoglobin 14.2, hematocrit 41.1, platelets 253,000. The patient's first cultures were positive for Klebsiella pneumonia, pseudomonas aeruginosa, and Streptococcus. She was placed on Levaquin 750 mg p.o. daily for a total of 10 days, and completed her course. A noninvasive lower extremity arterial study is normal, revealing triphasic waveforms at ankle level bilaterally, normal resting ankle?brachial indices bilaterally, and normal digital-brachial indices bilaterally. A venous duplex examination reveals incompetence of the left great saphenous vein below the knee. The left small saphenous vein appears competent. Results of the patient's most recent cultures have been reviewed. She is growing to Staphylococcus species, Staphylococcus pseudintermedius and Staphylococcus epidermidis. Sensitivities have been reviewed. Unfortunately, a sensitivity to trimethoprim/sulfamethoxazole for Staph epi was not reported. Discussion was undertaken with our clinical pharmacist, Barb, and after careful consideration the decision was made to start the patient on Linezolid, aware the patient would have only a small amount of [id number] co-pay. The prescription was provided for Linezolid 600 milligrams twice daily for 10 days, which is now completed. Plan: An excisional debridement has been performed today, and will continue on a weekly basis. A noninvasive lower extremity arterial study is normal. We will continue the use of TubiGrip compression to the left lower extremity to assist in the control of swelling and edema. She is to use a double layer Tubigrip on the left lower extremity. She has also been encouraged to elevate her lower extremities as much as possible, and to avoid prolonged idle sitting. The patient has been encouraged to assure adequate nutrition. Optimizing glycemic control has also been advised. We are to implement the use of Silver [place], which will be applied topically every other day. We are also to seek preauthorization for the use of Grafix Prime, a skin graft substitute/allograft. The patient will return in 2 weeks for reassessment. Influenza vaccine was not administered today. The patient is not a smoker. Patient weighs 265 pounds. She stands 5 feet 4 inches tall. Her BMI is 45.5, which places her in a class III category. Weight loss has been recommended, and collaboration with the patient's primary care physician has been recommended.
[2018-04-09 16:07] VITALS: BP 145/73; PULSE 85; RESP 20; TEMP 36.6; BMI 46.1
--- NOTE | 2018-04-09 17:05 | PCM.WC.HP ---
(1) Traumatic open wound of lower leg Status: Chronic Current Visit: Yes Qualifiers: Encounter type: subsequent encounter Laterality: left Qualified Code(s): S81.802D - Unspecified open wound, left lower leg, subsequent encounter Code(s): S81.809A - Unspecified open wound, unspecified lower leg, initial encounter (2) Leg swelling Status: Chronic Current Visit: Yes Code(s): M79.89 - Other specified soft tissue disorders (3) Edema of leg Status: Chronic Current Visit: Yes Code(s): R60.0 - Localized edema (4) Diabetes mellitus Status: Chronic Current Visit: No Qualifiers: Diabetes mellitus type: type 2 Code(s): E11.9 - Type 2 diabetes mellitus without complications (5) Morbid obesity with BMI of 45.0-49.9, adult Status: Chronic Current Visit: No Code(s): E66.01 - Morbid (severe) obesity due to excess calories; Z68.42 - Body mass index (BMI) 45.0-49.9, adult (6) COPD (chronic obstructive pulmonary disease) Status: Chronic Current Visit: No Code(s): J44.9 - Chronic obstructive pulmonary disease, unspecified (7) Coronary artery arteriosclerosis Status: Chronic Current Visit: No Code(s): I25.10 - Atherosclerotic heart disease of [place] coronary artery without angina pectoris History of Present Illness Chief Complaint: Traumatic open wound of the left lower extremity History of Wound: This is a 57-year-old diabetic female who was in her normal state of health until approximately 2 months prior to presentation. At that time, she sustained trauma to the anterolateral aspect of the left calf, striking her leg against the bed frame. A wound resulted, which has failed to heal in normal fashion. She subsequently struck her leg against the bed frame a second time, again injuring the left lower extremity in the same location. She claims to have chronic swelling in the left lower extremity, that precedes her current injury. She sleeps in a recumbent position at night. 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 Past Medical History Past Medical History: Chronic Problems Traumatic open wound of lower leg (Chronic) Leg swelling (Chronic) Edema of leg (Chronic) Diabetes mellitus (Chronic) Morbid obesity with BMI of 45.0-49.9, adult (Chronic) COPD (chronic obstructive pulmonary disease) (Chronic) Coronary artery arteriosclerosis (Chronic) Surgical History: - - The patient has a history of coronary artery stent placement. She has undergone open reduction and internal fixation of a left tibia fracture. She underwent right meniscus repair in the past. She is a Ab0. Allergies/Adverse Reactions: Allergies No Known Allergies Allergy (Verified 09/03/13 11:12) Home Medications: Ambulatory Orders Medication Instructions Recorded Aspirin E.C. [Ecotrin] 81 mg PO DAILY@0800 09/03/13 Hydrocodone/Acetaminophen [Vicodin 1 - 2 tablet PO Q6H PRN PRN 09/03/13 5-300 mg Tablet] Lisinopril 10 mg PO DAILY 09/03/13 Metformin [Metformin HCl] 1,000 mg PO BID 09/03/13 Metoprolol Tartrate 50 mg PO DAILY 09/03/13 Dulaglutide [Trulicity] 0.75 mg SQ 01/02/18 Fluticasone/Vilanterol [Breo 1 each IH 01/02/18 Ellipta 200-25 Mcg INH] Insulin Glargine,Hum.rec.anlog 56 unit BID 01/02/18 [Lantus] Sitagliptin Phosphate [Januvia] 25 mg PO DAILY 01/02/18 Tiotropium [place] [Spiriva] 18 mcg IH 01/02/18 - Family History Paternal - - The patient's father at the age of 78 with history of chronic obstructive pulmonary disease. The patient's mother at the age of 84 with history of chronic obstructive pulmonary disease. Smoking Status: Former smoker Tobacco Use: Non-smoker Review of Systems Constitutional: Denies: Chills, Fever, Weight Change Eyes: Denies: Pain, Vision Change HEENT: Denies: Difficulty Hearing, Difficulty Swallowing, Sinus Congestion Cardiovascular: Denies: Chest Pain, Palpitations Respiratory: Denies: Cough, Shortness of Breath Gastrointestinal: Denies: Diarrhea, Nausea, Vomiting Genitourinary: Denies: Dysuria, Hematuria Endocrine: Denies: Heat/ Cold Intolerance, Polydipsia, Polyuria Hematologic/ Lymphatic: Denies: Easy Bruising, Easy Bleeding - Physical Exam Vital Signs Temp Pulse Resp BP Pulse Ox 97.8 F 85 20 H 145/73 H 94 04/09/18 16:07 04/09/18 16:07 04/09/18 16:07 04/09/18 16:07 03/24/18 00:30 General: Alert, Oriented x3, Cooperative, No apparent distress, Well developed, Well nourished HEENT: Atraumatic, PERRLA, EOMI, Normocephalic Oral: Moist Mucosa Neck: No JVD Lungs: Normal air movement Abdomen: Non-Distended Extremities: No clubbing, No cyanosis, No Calf Tenderness, - - Swelling and edema in the left lower extremity appears to be reasonably well controlled. The traumatic wound on the left lateral calf is little changed in size. Dimensions are documented elsewhere. There is no sign of infection or cellulitis. The superior portion of the wound appears to be more superficial, with evidence of healthy granulation tissue. There is a moderate amount of bioburden inferiorly. Skin: No rashes Wound Measurements and Assessment WC - Nurse 1 - General Ulcer Measurement Start: 03/27/18 11:10 Freq: Status: Active Protocol: Activity Type Activity Date Activity User E-Sign Co-Sign Detail Recorded Client Recorded Date Recorded By Document 04/09/18 16:07 [id number] 04/09/18 16:13 DL 04/09/18 16:07 Wound Center Nurse 1 [Ulcer Assessment] #1 L Vaz -Current Size (cm) - Length 2.4 -Current Size (cm) - Width 2 -Current Size (cm) - Depth 0.3 -Total Square Cm 4.8 -Photo Taken No -Exudate Amt Medium (34-66%) -Exudate Type Serosanguineous -Wound Margin Distinct, Outline Attached -Granulation Amt Large (67-100%) -Granulation Quality Red -Necrosis Amt Small (1-33%) -Necrotic Tissue Type Adherent Slough -Structure Exposed N/A -Texture (Ketty-wound Skin Appearance) Scarring -Moisture (Ketty-wound Skin Appearance No Abnormality ) -Color (Ketty-wound Skin Appearance) Hemosiderin Staining Rubor -Temperature (Ketty-wound Skin No Abnormality Appearance) (Pt Warm) -Ulcer Cleansing Rinsed/ Irrigated with Saline -Foul Odor after Cleansing No -Anesthetic Used 4% Lidocaine Solution [Edema Assessment] -Left Calf (cm) 41 -Left Ankle (cm) 23.6 WC - Nurse 2 - General Ulcer CM Notes Start: 03/27/18 11:10 Freq: Status: Active Protocol: Activity Type Activity Date Activity User E-Sign Co-Sign Detail Recorded Client Recorded Date Recorded By Document 04/09/18 16:57 [id number] 04/09/18 17:02 04/09/18 16:57 Wound Center Nurse 2 [Procedure/Treatment] #1 L Vaz -Time 16:57 -Correct Patient Yes -Correct Side, Site, Position Yes -Correct Procedure Yes -Procedure Performed Yes -Type of Procedure Debridement -Clinical Debridement Subcutaneous -Post Debridement Size (cm) - Length 2.6 -Post Debridement Size (cm) - Width 2.3 -Post Debridement Size (cm) - Depth 0.3 -Total Square Cm 5.98 -Wound/Ulcer Outcome Not Healed -Ulcer Cleansing Rinsed/ Irrigated with Saline -Foul Odor after Cleansing No -Bioengineered Tissue No -Topical Lidocaine (%) 4 -Lidocaine (ml) 5 -Bleeding Controlled with NA -Offloading No -Treatment Response Procedure Tolerated Well [See Physician Procedure note for Specifics] Pain Scale: 0-10 Numeric [Pain] -Is Patient Pain Free? Yes Musculoskeletal: No Muscle Wasting Neurological: Cranial nerves II-XII grossly intact, Neuro grossly intact Psych/Mental Status: Normal Affect, Appropriate, Alert and oriented to time, place, person, mood and affect Debridement Note Post-Debridement Measurements/Treatment WC - Nurse 2 - General Ulcer CM Notes Start: 03/27/18 11:10 Freq: Status: Active Protocol: Activity Type Activity Date Activity User E-Sign Co-Sign Detail Recorded Client Recorded Date Recorded By Document 03/27/18 11:36 [id number] 03/27/18 11:38 DV Document 04/09/18 16:57 [id number] 04/09/18 17:02 03/27/18 04/09/18 11:36 16:57 Wound Center Nurse 2 #1 L Vaz -Time 11:37 16:57 -Correct Patient Yes Yes -Correct Side, Site, Position Yes Yes -Correct Procedure Yes Yes -Procedure Performed Yes Yes -Type of Procedure Debridement Debridement -Clinical Debridement Subcutaneous Subcutaneous -Post Debridement Size (cm) - Length 2.5 2.6 -Post Debridement Size (cm) - Width 2.4 2.3 -Post Debridement Size (cm) - Depth 0.4 0.3 -Total Square Cm 6.00 5.98 -Wound/Ulcer Outcome Not Healed Not Healed -Ulcer Cleansing Rinsed/ Rinsed/ Irrigated with Irrigated with Saline Saline -Foul Odor after Cleansing No No -Bioengineered Tissue No No -Topical Lidocaine (%) 4 -Lidocaine (ml) 5 -Bleeding Controlled with Pressure NA -Offloading No No -Treatment Response Procedure Procedure Tolerated Well Tolerated Well Pain Scale: 0-10 Numeric Is Patient Pain Free? Yes Yes Laterality: Left - Lateral calf Type of Debridement: Excisional debridement Anesthesia Used: 5% Lidocaine Gel Depth: Down to and including healthy tissue, in the subcutaneous layer Percentage of wound debrided: 100 Instrument Used: 7mm curette Severity: Fat Layer Exposed Amount of bleeding with debridement: Mild Bleeding Controlled with: Compression and gauze Patient tolerated procedure well Assessment/Plan Active Problems Traumatic open wound of lower leg (Chronic) Leg swelling (Chronic) Edema of leg (Chronic) Assessment: This is a 57-year-old female who presented with a traumatic wound on the anterolateral aspect of the left calf. The injury occurred approximately 2 months prior to presentation, and has failed to heal appropriately. The patient presented with ralph, nonviable tissue within the wound itself. She is known to be a diabetic. Patient has undergone a battery of diagnostic tests, with results as follows: Glucose 150, sodium 140, potassium 4.8, chloride 103, BUN 15, creatinine 0.80, calcium 9.5, total protein 6.7, albumin 3.9, alkaline phosphatase 61, AST 20, ALT 35, hemoglobin A1c 8.3, white blood count 6.2, hemoglobin 14.2, hematocrit 41.1, platelets 253,000. The patient's first cultures were positive for Klebsiella pneumonia, pseudomonas aeruginosa, and Streptococcus. She was placed on Levaquin 750 mg p.o. daily for a total of 10 days, and completed her course. A noninvasive lower extremity arterial study is normal, revealing triphasic waveforms at ankle level bilaterally, normal resting ankle?brachial indices bilaterally, and normal digital-brachial indices bilaterally. A venous duplex examination reveals incompetence of the left great saphenous vein below the knee. The left small saphenous vein appears competent. Results of the patient's most recent cultures have been reviewed. She is growing to Staphylococcus species, Staphylococcus pseudintermedius and Staphylococcus epidermidis. Sensitivities have been reviewed. Unfortunately, a sensitivity to trimethoprim/sulfamethoxazole for Staph epi was not reported. Discussion was undertaken with our clinical pharmacist, Barb, and after careful consideration the decision was made to start the patient on Linezolid, aware the patient would have only a small amount of [id number] co-pay. The prescription was provided for Linezolid 600 milligrams twice daily for 10 days, which is now completed. Plan: An excisional debridement has been performed today, and will continue on a weekly basis. A noninvasive lower extremity arterial study is normal. We will continue the use of TubiGrip compression to the left lower extremity to assist in the control of swelling and edema. She is to use a double layer Tubigrip on the left lower extremity. She has also been encouraged to elevate her lower extremities as much as possible, and to avoid prolonged idle sitting. The patient has been encouraged to assure adequate nutrition. Optimizing glycemic control has also been advised. We are to continue the use of Silver [place], which will be applied topically every other day. We are also to seek preauthorization for the use of Grafix Prime, a skin graft substitute/allograft. Because of the delay in healing progress, the patient's wound has been again cultured for both aerobic and anaerobic bacteria. Results will be awaited. The patient will return in 2 weeks for reassessment. Influenza vaccine was not administered today. The patient is not a smoker. Patient weighs 265 pounds. She stands 5 feet 4 inches tall. Her BMI is 45.5, which places her in a class III category. Weight loss has been recommended, and collaboration with the patient's primary care physician has been recommended.
[2018-04-23 15:25] VITALS: BP 151/79; PULSE 86; RESP 18; TEMP 36.6; BMI 46.1
--- NOTE | 2018-04-23 16:22 | PCM.WC.HP ---
(1) Traumatic open wound of lower leg Status: Chronic Current Visit: Yes Qualifiers: Encounter type: subsequent encounter Laterality: left Qualified Code(s): S81.802D - Unspecified open wound, left lower leg, subsequent encounter Code(s): S81.809A - Unspecified open wound, unspecified lower leg, initial encounter (2) Leg swelling Status: Chronic Current Visit: Yes Code(s): M79.89 - Other specified soft tissue disorders (3) Edema of leg Status: Chronic Current Visit: Yes Code(s): R60.0 - Localized edema (4) Diabetes mellitus Status: Chronic Current Visit: No Qualifiers: Diabetes mellitus type: type 2 Code(s): E11.9 - Type 2 diabetes mellitus without complications (5) Morbid obesity with BMI of 45.0-49.9, adult Status: Chronic Current Visit: No Code(s): E66.01 - Morbid (severe) obesity due to excess calories; Z68.42 - Body mass index (BMI) 45.0-49.9, adult (6) COPD (chronic obstructive pulmonary disease) Status: Chronic Current Visit: No Code(s): J44.9 - Chronic obstructive pulmonary disease, unspecified (7) Coronary artery arteriosclerosis Status: Chronic Current Visit: No Code(s): I25.10 - Atherosclerotic heart disease of [place] coronary artery without angina pectoris History of Present Illness Chief Complaint: Traumatic open wound of the left lower extremity History of Wound: This is a 57-year-old diabetic female who was in her normal state of health until approximately 2 months prior to presentation. At that time, she sustained trauma to the anterolateral aspect of the left calf, striking her leg against the bed frame. A wound resulted, which has failed to heal in normal fashion. She subsequently struck her leg against the bed frame a second time, again injuring the left lower extremity in the same location. She claims to have chronic swelling in the left lower extremity, that precedes her current injury. She sleeps in a recumbent position at night. 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 Past Medical History Past Medical History: Chronic Problems Traumatic open wound of lower leg (Chronic) Leg swelling (Chronic) Edema of leg (Chronic) Diabetes mellitus (Chronic) Morbid obesity with BMI of 45.0-49.9, adult (Chronic) COPD (chronic obstructive pulmonary disease) (Chronic) Coronary artery arteriosclerosis (Chronic) Surgical History: - - The patient has a history of coronary artery stent placement. She has undergone open reduction and internal fixation of a left tibia fracture. She underwent right meniscus repair in the past. She is a Ab0. Allergies/Adverse Reactions: Allergies No Known Allergies Allergy (Verified 09/03/13 11:12) Home Medications: Ambulatory Orders Medication Instructions Recorded Aspirin E.C. [Ecotrin] 81 mg PO DAILY@0800 09/03/13 Hydrocodone/Acetaminophen [Vicodin 1 - 2 tablet PO Q6H PRN PRN 09/03/13 5-300 mg Tablet] Lisinopril 10 mg PO DAILY 09/03/13 Metformin [Metformin HCl] 1,000 mg PO BID 09/03/13 Metoprolol Tartrate 50 mg PO DAILY 09/03/13 Dulaglutide [Trulicity] 0.75 mg SQ 01/02/18 Fluticasone/Vilanterol [Breo 1 each IH 01/02/18 Ellipta 200-25 Mcg INH] Insulin Glargine,Hum.rec.anlog 56 unit BID 01/02/18 [Lantus] Sitagliptin Phosphate [Januvia] 25 mg PO DAILY 01/02/18 Tiotropium [place] [Spiriva] 18 mcg IH 01/02/18 - Family History Paternal - - The patient's father at the age of 78 with history of chronic obstructive pulmonary disease. The patient's mother at the age of 84 with history of chronic obstructive pulmonary disease. Smoking Status: Former smoker Tobacco Use: Non-smoker Review of Systems Constitutional: Denies: Chills, Fever, Weight Change Eyes: Denies: Pain, Vision Change HEENT: Denies: Difficulty Hearing, Difficulty Swallowing, Sinus Congestion Cardiovascular: Denies: Chest Pain, Palpitations Respiratory: Denies: Cough, Shortness of Breath Gastrointestinal: Denies: Diarrhea, Nausea, Vomiting Genitourinary: Denies: Dysuria, Hematuria Endocrine: Denies: Heat/ Cold Intolerance, Polydipsia, Polyuria Hematologic/ Lymphatic: Denies: Easy Bruising, Easy Bleeding - Physical Exam Vital Signs Temp Pulse Resp BP Pulse Ox 97.8 F 86 18 151/79 H 94 04/23/18 15:25 04/23/18 15:25 04/23/18 15:25 04/23/18 15:25 03/24/18 00:30 General: Alert, Oriented x3, Cooperative, No apparent distress, Well developed, Well nourished HEENT: Atraumatic, PERRLA, EOMI, Normocephalic Oral: Moist Mucosa Neck: No JVD Lungs: Normal air movement Abdomen: Non-Distended Extremities: No clubbing, No cyanosis, No edema, No Calf Tenderness, - - Patient's wound on the left anterolateral calf is showing improvement. There is evidence of peripheral epithelialization at the superior portion of the ulceration. The ulceration appears to be filling in, and is more superficial, particularly at the superior pole. There is no obvious sign of infection or cellulitis. There is a mild amount of bioburden. Dimensions are documented elsewhere. Skin: No rashes Wound Measurements and Assessment WC - Nurse 1 - General Ulcer Measurement Start: 03/27/18 11:10 Freq: Status: Active Protocol: Activity Type Activity Date Activity User E-Sign Co-Sign Detail Recorded Client Recorded Date Recorded By Document 04/23/18 15:25 DL [id number] 04/23/18 15:31 DL 04/23/18 15:25 Wound Center Nurse 1 [Ulcer Assessment] #1 L Vaz -Current Size (cm) - Length 2.4 -Current Size (cm) - Width 1.7 -Current Size (cm) - Depth 0.2 -Total Square Cm 4.08 -Photo Taken No -Exudate Amt Medium (34-66%) -Exudate Type Serosanguineous -Wound Margin Distinct, Outline Attached -Granulation Amt Large (67-100%) -Granulation Quality Red -Necrosis Amt Small (1-33%) -Necrotic Tissue Type Adherent Slough -Structure Exposed N/A -Texture (Ketty-wound Skin Appearance) Scarring -Moisture (Ketty-wound Skin Appearance No Abnormality ) -Color (Ketty-wound Skin Appearance) Hemosiderin Staining -Temperature (Ketty-wound Skin No Abnormality Appearance) (Pt Warm) -Tenderness on Palpation (Ketty-wound No Skin Appearance) -Ulcer Cleansing Wound Cleanser -Foul Odor after Cleansing No -Anesthetic Used 4% Lidocaine Solution [Edema Assessment] -Left Calf (cm) 41.5 -Left Ankle (cm) 23.5 WC - Nurse 2 - General Ulcer CM Notes Start: 03/27/18 11:10 Freq: Status: Active Protocol: Activity Type Activity Date Activity User E-Sign Co-Sign Detail Recorded Client Recorded Date Recorded By Document 04/23/18 16:13 [id number] 04/23/18 16:16 04/23/18 16:13 Wound Center Nurse 2 [Procedure/Treatment] #1 L Vaz -Time 16:13 -Correct Patient Yes -Correct Side, Site, Position Yes -Correct Procedure Yes -Procedure Performed Yes -Type of Procedure Debridement -Clinical Debridement Subcutaneous -Post Debridement Size (cm) - Length 2.1 -Post Debridement Size (cm) - Width 2.0 -Post Debridement Size (cm) - Depth 0.3 -Total Square Cm 4.20 -Wound/Ulcer Outcome Not Healed -Ulcer Cleansing Rinsed/ Irrigated with Saline -Foul Odor after Cleansing No -Bioengineered Tissue No -Topical Lidocaine (%) 5 -Bleeding Controlled with NA -Offloading No -Treatment Response Procedure Tolerated Well [See Physician Procedure note for Specifics] Musculoskeletal: No Muscle Wasting Neurological: Cranial nerves II-XII grossly intact, Neuro grossly intact Psych/Mental Status: Normal Affect, Appropriate, Alert and oriented to time, place, person, mood and affect Debridement Note Post-Debridement Measurements/Treatment WC - Nurse 2 - General Ulcer CM Notes Start: 03/27/18 11:10 Freq: Status: Active Protocol: Activity Type Activity Date Activity User E-Sign Co-Sign Detail Recorded Client Recorded Date Recorded By Document 03/27/18 11:36 DV [id number] 03/27/18 11:38 DV Document 04/09/18 16:57 JS [id number] 04/09/18 17:02 Document 04/23/18 16:13 [id number] 04/23/18 16:16 03/27/18 04/09/18 04/23/18 11:36 16:57 16:13 Wound Center Nurse 2 #1 L Vaz -Time 11:37 16:57 16:13 -Correct Patient Yes Yes Yes -Correct Side, Site, Position Yes Yes Yes -Correct Procedure Yes Yes Yes -Procedure Performed Yes Yes Yes -Type of Procedure Debridement Debridement Debridement -Clinical Debridement Subcutaneous Subcutaneous Subcutaneous -Post Debridement Size (cm) - Length 2.5 2.6 2.1 -Post Debridement Size (cm) - Width 2.4 2.3 2.0 -Post Debridement Size (cm) - Depth 0.4 0.3 0.3 -Total Square Cm 6.00 5.98 4.20 -Wound/Ulcer Outcome Not Healed Not Healed Not Healed -Ulcer Cleansing Rinsed/ Rinsed/ Rinsed/ Irrigated with Irrigated with Irrigated with Saline Saline Saline -Foul Odor after Cleansing No No No -Bioengineered Tissue No No No -Topical Lidocaine (%) 4 5 -Lidocaine (ml) 5 -Bleeding Controlled with Pressure NA NA -Offloading No No No -Treatment Response Procedure Procedure Procedure Tolerated Well Tolerated Well Tolerated Well Pain Scale: 0-10 Numeric Is Patient Pain Free? Yes Yes Laterality: Left - Anterolateral calf Type of Debridement: Excisional debridement Anesthesia Used: 5% Lidocaine Gel Depth: Down to and including healthy tissue, in the subcutaneous layer Percentage of wound debrided: 100 Instrument Used: 7mm curette Severity: Fat Layer Exposed Amount of bleeding with debridement: Mild Bleeding Controlled with: Compression and gauze Patient tolerated procedure well Assessment/Plan Active Problems Traumatic open wound of lower leg (Chronic) Leg swelling (Chronic) Edema of leg (Chronic) Assessment: This is a 57-year-old female who presented with a traumatic wound on the anterolateral aspect of the left calf. The injury occurred approximately 2 months prior to presentation, and has failed to heal appropriately. The patient presented with ralph, nonviable tissue within the wound itself. She is known to be a diabetic. Patient has undergone a battery of diagnostic tests, with results as follows: Glucose 150, sodium 140, potassium 4.8, chloride 103, BUN 15, creatinine 0.80, calcium 9.5, total protein 6.7, albumin 3.9, alkaline phosphatase 61, AST 20, ALT 35, hemoglobin A1c 8.3, white blood count 6.2, hemoglobin 14.2, hematocrit 41.1, platelets 253,000. The patient's prior cultures were positive for Klebsiella pneumonia, pseudomonas aeruginosa, and Streptococcus. She was placed on Levaquin 750 mg p.o. daily for a total of 10 days, and completed her course. Recently, another culture was positive for Pseudomonas. The patient is currently in the midst of a prescription for Levaquin 750 mg p.o. daily for 10 days. A noninvasive lower extremity arterial study is normal, revealing triphasic waveforms at ankle level bilaterally, normal resting ankle?brachial indices bilaterally, and normal digital-brachial indices bilaterally. A venous duplex examination reveals incompetence of the left great saphenous vein below the knee. The left small saphenous vein appears competent. Plan: An excisional debridement has been performed today, and will continue on a weekly basis. A noninvasive lower extremity arterial study is normal. We will continue the use of TubiGrip compression to the left lower extremity to assist in the control of swelling and edema. She is to use a double layer Tubigrip on the left lower extremity. She has also been encouraged to elevate her lower extremities as much as possible, and to avoid prolonged idle sitting. The patient has been encouraged to assure adequate nutrition. Optimizing glycemic control has also been advised. We are to continue the use of Silver Shelly, which will be applied topically every other day. We are also to seek preauthorization for the use of Grafix Prime, a skin graft substitute/allograft. Because of the delay in healing progress, the patient's wound has been again cultured for both aerobic and anaerobic bacteria. Results revealed the presence of Pseudomonas species, and the patient is now taking Levaquin 750 mg p.o. daily for a total of 10 days. The patient will return in 1 week for reassessment. Influenza vaccine was not administered today. The patient is not a smoker. Patient weighs 265 pounds. She stands 5 feet 4 inches tall. Her BMI is 45.5, which places her in a class III category. Weight loss has been recommended, and collaboration with the patient's primary care physician has been recommended.
== END 2018-04-23 23:59 ==
LOC: WC 15:30
PROVIDERS: PCP Nurse Practitioner Primary Care; Referring Provider Surgery; Visit Provider Surgery
DX: S81.832A Puncture wound without foreign body, left lower leg, initial encounter (principal); W22.03XA Walked into furniture, initial encounter; E11.9 Type 2 diabetes mellitus without complications; E66.01 Morbid (severe) obesity due to excess calories; Z68.42 Body mass index [BMI] 45.0-49.9, adult; Z71.3 Dietary counseling and surveillance; J44.9 Chronic obstructive pulmonary disease, unspecified; I25.10 Atherosclerotic heart disease of native coronary artery without angina pectoris; Z79.4 Long term (current) use of insulin; Z79.899 Other long term (current) drug therapy
CPT/HCPCS: 11042; 87070; 87075; 87077; 87186; 87205

== ENCOUNTER 2018-05-21 15:30 | Outpatient (RCR) | payer OTHER, SELFPAY ==
[2018-04-24 00:31] VITALS: BP 151/79; PULSE 86; RESP 18; TEMP 36.6; O2SAT 94
--- NOTE | 2018-04-27 08:34 | WC ---
INSURANCE PRE-AUTHORIZATION - [employer] ([employer]-Grafix) New request required to be implemented for 2019 to use Grafix [id number]. Fina Case #[id number] Previous request has been closed for 2018. No authorization or product has been applied to date. New request to be faxed later today after obtaining Dr. Xavier Acuña's signature. Patient scheduled to return for F/U visit 04/30/18
[2018-04-30 15:36] VITALS: BP 162/80; PULSE 90; RESP 16; TEMP 37.2; BMI 46.1
--- NOTE | 2018-04-30 16:23 | HP.PCM_ITS ---
(1) Traumatic open wound of lower leg Status: Chronic Current Visit: Yes Qualifiers: Encounter type: subsequent encounter Laterality: left Qualified Code(s): S81.802D - Unspecified open wound, left lower leg, subsequent encounter Code(s): S81.809A - Unspecified open wound, unspecified lower leg, initial encounter (2) Leg swelling Status: Chronic Current Visit: Yes Code(s): M79.89 - Other specified soft tissue disorders (3) Edema of leg Status: Chronic Current Visit: Yes Code(s): R60.0 - Localized edema (4) Diabetes mellitus Status: Chronic Current Visit: No Qualifiers: Diabetes mellitus type: type 2 Code(s): E11.9 - Type 2 diabetes mellitus without complications (5) Morbid obesity with BMI of 45.0-49.9, adult Status: Chronic Current Visit: No Code(s): E66.01 - Morbid (severe) obesity due to excess calories; Z68.42 - Body mass index (BMI) 45.0-49.9, adult (6) COPD (chronic obstructive pulmonary disease) Status: Chronic Current Visit: No Code(s): J44.9 - Chronic obstructive pulmonary disease, unspecified (7) Coronary artery arteriosclerosis Status: Chronic Current Visit: No Code(s): I25.10 - Atherosclerotic heart disease of [place] coronary artery without angina pectoris History of Present Illness Chief Complaint: Traumatic open wound of the left lower extremity History of Wound: This is a 57-year-old diabetic female who was in her normal state of health until approximately 2 months prior to presentation. At that time, she sustained trauma to the anterolateral aspect of the left calf, striking her leg against the bed frame. A wound resulted, which has failed to heal in normal fashion. She subsequently struck her leg against the bed frame a second time, again injuring the left lower extremity in the same location. She claims to have chronic swelling in the left lower extremity, that precedes her current injury. She sleeps in a recumbent position at night. 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 Past Medical History Past Medical History: Chronic Problems Traumatic open wound of lower leg (Chronic) Leg swelling (Chronic) Edema of leg (Chronic) Diabetes mellitus (Chronic) Morbid obesity with BMI of 45.0-49.9, adult (Chronic) COPD (chronic obstructive pulmonary disease) (Chronic) Coronary artery arteriosclerosis (Chronic) Surgical History: - - The patient has a history of coronary artery stent placement. She has undergone open reduction and internal fixation of a left tibia fracture. She underwent right meniscus repair in the past. She is a Ab0. Allergies/Adverse Reactions: Allergies No Known Allergies Allergy (Verified 09/03/13 11:12) Home Medications: Ambulatory Orders Medication Instructions Recorded Aspirin E.C. [Ecotrin] 81 mg PO DAILY@0800 09/03/13 Hydrocodone/Acetaminophen [Vicodin 1 - 2 tablet PO Q6H PRN PRN 09/03/13 5-300 mg Tablet] Lisinopril 10 mg PO DAILY 09/03/13 Metformin [Metformin HCl] 1,000 mg PO BID 09/03/13 Metoprolol Tartrate 50 mg PO DAILY 09/03/13 Dulaglutide [Trulicity] 0.75 mg SQ 01/02/18 Fluticasone/Vilanterol [Breo 1 each IH 01/02/18 Ellipta 200-25 Mcg INH] Insulin Glargine,Hum.rec.anlog 56 unit BID 01/02/18 [Lantus] Sitagliptin Phosphate [Januvia] 25 mg PO DAILY 01/02/18 Tiotropium [place] [Spiriva] 18 mcg IH 01/02/18 - Family History Paternal - - The patient's father at the age of 78 with history of chronic obstructive pulmonary disease. The patient's mother at the age of 84 with history of chronic obstructive pulmonary disease. Smoking Status: Former smoker Tobacco Use: Non-smoker Review of Systems Constitutional: Denies: Chills, Fever, Weight Change Eyes: Denies: Pain, Vision Change HEENT: Denies: Difficulty Hearing, Difficulty Swallowing, Sinus Congestion Cardiovascular: Denies: Chest Pain, Palpitations Respiratory: Denies: Cough, Shortness of Breath Gastrointestinal: Denies: Diarrhea, Nausea, Vomiting Genitourinary: Denies: Dysuria, Hematuria Endocrine: Denies: Heat/ Cold Intolerance, Polydipsia, Polyuria Hematologic/ Lymphatic: Denies: Easy Bruising, Easy Bleeding - Physical Exam Vital Signs Temp Pulse Resp BP Pulse Ox 98.9 F 90 16 162/80 H 94 04/30/18 15:36 04/30/18 15:36 04/30/18 15:36 04/30/18 15:36 04/24/18 00:31 General: Alert, Oriented x3, Cooperative, No apparent distress, Well developed, Well nourished HEENT: Atraumatic, PERRLA, EOMI, Normocephalic Oral: Moist Mucosa Neck: No JVD Lungs: Normal air movement Abdomen: Non-Distended, - Extremities: No clubbing, No cyanosis, No edema, No Calf Tenderness, - - There is no significant swelling or edema in the left lower extremity. The wound on the left anterior tibial surface is improved. There is evidence of epithelialization, noted particularly at the superior pole of the wound. There is only a small amount of bioburden. There is no sign of infection or cellulitis. Dimensions are documented elsewhere. Skin: No rashes Wound Measurements and Assessment WC - Nurse 1 - General Ulcer Measurement Start: 04/30/18 15:36 Freq: Status: Active Protocol: Activity Type Activity Date Activity User E-Sign Co-Sign Detail Recorded Client Recorded Date Recorded By Document 04/30/18 15:36 [id number] 04/30/18 15:41 04/30/18 15:36 Wound Center Nurse 1 [Ulcer Assessment] #1 L Vaz -Combined with other wound No -Current Size (cm) - Length 2.0 -Current Size (cm) - Width 1.6 -Current Size (cm) - Depth 0.2 -Total Square Cm 3.20 -Photo Taken No -Epithelialization Small 1-33% -Tunneling No -Undermining/Tunneling No -Circular Undermining No -Exudate Amt Small (1-33%) -Exudate Type Serosanguineous -Wound Margin Flat & Intact -Granulation Amt Large (67-100%) -Granulation Quality Red -Slough/Fibrin Yes -Necrosis Amt Small (1-33%) -Necrotic Tissue Type Adherent Slough -Structure Exposed N/A -Texture (Ketty-wound Skin Appearance) Assessed Localized Edema -Moisture (Ketty-wound Skin Appearance Assessed ) Dry/Scaly -Color (Ketty-wound Skin Appearance) Assessed -Temperature (Ketty-wound Skin No Abnormality Appearance) (Pt Warm) -Tenderness on Palpation (Ketty-wound No Skin Appearance) -Ulcer Cleansing Rinsed/ Irrigated with Saline -Foul Odor after Cleansing No -Anesthetic Used 4% Lidocaine Solution [Edema Assessment] -Lower Limb Edema Present Yes -Left Calf (cm) 42.5 -Left Ankle (cm) 23.8 Musculoskeletal: No Muscle Wasting Neurological: Cranial nerves II-XII grossly intact, Neuro grossly intact Psych/Mental Status: Normal Affect, Appropriate, Alert and oriented to time, place, person, mood and affect Debridement Note Laterality: Left - Anterior tibial surface Type of Debridement: Excisional debridement Anesthesia Used: 5% Lidocaine Gel Depth: Down to and including healthy tissue, in the subcutaneous layer Percentage of wound debrided: 100 Instrument Used: 7mm curette Severity: Fat Layer Exposed Amount of bleeding with debridement: Mild Bleeding Controlled with: Compression and gauze Patient tolerated procedure well Assessment/Plan Active Problems Traumatic open wound of lower leg (Chronic) Leg swelling (Chronic) Edema of leg (Chronic) Assessment: This is a 57-year-old female who presented with a traumatic wound on the anterolateral aspect of the left calf. The injury occurred approximately 2 months prior to presentation, and has failed to heal appropriately. The patient presented with ralph, nonviable tissue within the wound itself. She is known to be a diabetic. Patient has undergone a battery of diagnostic tests, with results as follows: Glucose 150, sodium 140, potassium 4.8, chloride 103, BUN 15, creatinine 0.80, calcium 9.5, total protein 6.7, albumin 3.9, alkaline phosphatase 61, AST 20, ALT 35, hemoglobin A1c 8.3, white blood count 6.2, hemoglobin 14.2, hematocrit 41.1, platelets 253,000. The patient's prior cultures were positive for Klebsiella pneumonia, pseudomonas aeruginosa, and Streptococcus. She was placed on Levaquin 750 mg p.o. daily for a total of 10 days, and completed her course. Recently, another culture was positive for Pseudomonas. The patient has now completed another prescription for Levaquin 750 mg p.o. daily for 10 days. A noninvasive lower extremity arterial study is normal, revealing triphasic waveforms at ankle level bilaterally, normal resting ankle?brachial indices bilaterally, and normal digital-brachial indices bilaterally. A venous duplex examination reveals incompetence of the left great saphenous vein below the knee. The left small saphenous vein appears competent. Plan: An excisional debridement has been performed today, and will continue on a weekly basis. A noninvasive lower extremity arterial study is normal. We will continue the use of TubiGrip compression to the left lower extremity to assist in the control of swelling and edema. She is to use a double layer Tubigrip on the left lower extremity. She has also been encouraged to elevate her lower extremities as much as possible, and to avoid prolonged idle sitting. The patient has been encouraged to assure adequate nutrition. Optimizing glycemic control has also been advised. We are to continue the use of Silver Shelly, which will be applied topically every other day. We are also to seek preauthorization for the use of Grafix Prime, a skin graft substitute/allograft. Because of the delay in healing progress, the patient's wound has been again cultured for both aerobic and anaerobic bacteria. Results revealed the presence of Pseudomonas species, and the patient has completed a course of Levaquin 750 mg p.o. daily for a total of 10 days. The patient will return in 1 week for reassessment. Influenza vaccine was not administered today. The patient is not a smoker. Patient weighs 265 pounds. She stands 5 feet 4 inches tall. Her BMI is 45.5, which places her in a class III category. Weight loss has been recommended, and collaboration with the patient's primary care physician has been recommended.
[2018-05-07 15:40] VITALS: BP 139/75; PULSE 99; RESP 16; TEMP 36.6; BMI 46.1
--- NOTE | 2018-05-07 16:22 | HP.PCM_ITS ---
(1) Traumatic open wound of lower leg Status: Chronic Current Visit: Yes Qualifiers: Encounter type: subsequent encounter Laterality: left Qualified Code(s): S81.802D - Unspecified open wound, left lower leg, subsequent encounter Code(s): S81.809A - Unspecified open wound, unspecified lower leg, initial encounter (2) Leg swelling Status: Chronic Current Visit: Yes Code(s): M79.89 - Other specified soft tissue disorders (3) Edema of leg Status: Chronic Current Visit: Yes Code(s): R60.0 - Localized edema (4) Diabetes mellitus Status: Chronic Current Visit: No Qualifiers: Diabetes mellitus type: type 2 Code(s): E11.9 - Type 2 diabetes mellitus without complications (5) Morbid obesity with BMI of 45.0-49.9, adult Status: Chronic Current Visit: No Code(s): E66.01 - Morbid (severe) obesity due to excess calories; Z68.42 - Body mass index (BMI) 45.0-49.9, adult (6) COPD (chronic obstructive pulmonary disease) Status: Chronic Current Visit: No Code(s): J44.9 - Chronic obstructive pulmonary disease, unspecified (7) Coronary artery arteriosclerosis Status: Chronic Current Visit: No Code(s): I25.10 - Atherosclerotic heart disease of [place] coronary artery without angina pectoris History of Present Illness Chief Complaint: Traumatic open wound of the left lower extremity History of Wound: This is a 57-year-old diabetic female who was in her normal state of health until approximately 2 months prior to presentation. At that time, she sustained trauma to the anterolateral aspect of the left calf, striking her leg against the bed frame. A wound resulted, which has failed to heal in normal fashion. She subsequently struck her leg against the bed frame a second time, again injuring the left lower extremity in the same location. She claims to have chronic swelling in the left lower extremity, that precedes her current injury. She sleeps in a recumbent position at night. 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 Past Medical History Past Medical History: Chronic Problems Traumatic open wound of lower leg (Chronic) Leg swelling (Chronic) Edema of leg (Chronic) Diabetes mellitus (Chronic) Morbid obesity with BMI of 45.0-49.9, adult (Chronic) COPD (chronic obstructive pulmonary disease) (Chronic) Coronary artery arteriosclerosis (Chronic) Surgical History: - - The patient has a history of coronary artery stent placement. She has undergone open reduction and internal fixation of a left tibia fracture. She underwent right meniscus repair in the past. She is a Ab0. Allergies/Adverse Reactions: Allergies No Known Allergies Allergy (Verified 09/03/13 11:12) Home Medications: Ambulatory Orders Medication Instructions Recorded Aspirin E.C. [Ecotrin] 81 mg PO DAILY@0800 09/03/13 Hydrocodone/Acetaminophen [Vicodin 1 - 2 tablet PO Q6H PRN PRN 09/03/13 5-300 mg Tablet] Lisinopril 10 mg PO DAILY 09/03/13 Metformin [Metformin HCl] 1,000 mg PO BID 09/03/13 Metoprolol Tartrate 50 mg PO DAILY 09/03/13 Dulaglutide [Trulicity] 0.75 mg SQ 01/02/18 Fluticasone/Vilanterol [Breo 1 each IH 01/02/18 Ellipta 200-25 Mcg INH] Insulin Glargine,Hum.rec.anlog 56 unit BID 01/02/18 [Lantus] Sitagliptin Phosphate [Januvia] 25 mg PO DAILY 01/02/18 Tiotropium Indian [Spiriva] 18 mcg IH 01/02/18 - Family History Paternal - - The patient's father at the age of 78 with history of chronic obstructive pulmonary disease. The patient's mother at the age of 84 with history of chronic obstructive pulmonary disease. Smoking Status: Former smoker Tobacco Use: Non-smoker Review of Systems Constitutional: Denies: Chills, Fever, Weight Change Eyes: Denies: Pain, Vision Change HEENT: Denies: Difficulty Hearing, Difficulty Swallowing, Sinus Congestion Cardiovascular: Denies: Chest Pain, Palpitations Respiratory: Denies: Cough, Shortness of Breath Gastrointestinal: Denies: Diarrhea, Nausea, Vomiting Genitourinary: Denies: Dysuria, Hematuria Endocrine: Denies: Heat/ Cold Intolerance, Polydipsia, Polyuria Hematologic/ Lymphatic: Denies: Easy Bruising, Easy Bleeding - Physical Exam Vital Signs Temp Pulse Resp BP Pulse Ox 97.8 F 99 16 139/75 H 94 05/07/18 15:40 05/07/18 15:40 05/07/18 15:40 05/07/18 15:40 04/24/18 00:31 General: Alert, Oriented x3, Cooperative, No apparent distress, Well developed, Well nourished HEENT: Atraumatic, PERRLA, EOMI, Normocephalic Oral: Moist Mucosa Neck: No JVD Lungs: Normal air movement Abdomen: Non-Distended Extremities: No clubbing, No cyanosis, No edema, No Calf Tenderness, - - The patient's traumatic wound on the left anterior tibial surface is markedly improved. It is much more superficial. It appears to be diminishing in size. The base of the ulceration is pink and healthy in appearance, with evidence of active granulation tissue and peripheral epithelialization. Dimensions are documented elsewhere. There is no sign of infection or cellulitis. Skin: No rashes Wound Measurements and Assessment WC - Nurse 1 - General Ulcer Measurement Start: 04/30/18 15:36 Freq: Status: Active Protocol: Activity Type Activity Date Activity User E-Sign Co-Sign Detail Recorded Client Recorded Date Recorded By Document 05/07/18 15:40 [id number] 05/07/18 15:41 05/07/18 15:40 Wound Center Nurse 1 [Ulcer Assessment] #1 L Vaz -Combined with other wound No -Current Size (cm) - Length 1.9 -Current Size (cm) - Width 1.5 -Current Size (cm) - Depth 0.1 -Total Square Cm 2.85 -Photo Taken No -Epithelialization Medium 34-66% -Tunneling No -Undermining/Tunneling No -Circular Undermining No -Exudate Amt Small -Exudate Type Sanguineous -Wound Margin Flat & Intact -Granulation Amt Large (67-100%) -Granulation Quality Red -Slough/Fibrin Yes -Necrosis Amt Small (1-33%) -Necrotic Tissue Type Adherent Slough -Structure Exposed N/A -Texture (Ketty-wound Skin Appearance) Assessed Localized Edema -Moisture (Ketty-wound Skin Appearance Assessed ) Dry/Scaly -Color (Ketty-wound Skin Appearance) Assessed -Temperature ([place]et[place]-wound Skin No Abnormality Appearance) (Pt Warm) -Tenderness on Palpation (Ketty-wound No Skin Appearance) -Ulcer Cleansing Rinsed/ Irrigated with Saline -Foul Odor after Cleansing No -Anesthetic Used 4% Lidocaine Solution [Edema Assessment] -Lower Limb Edema Present Yes -Left Calf (cm) 43.0 -Left Ankle (cm) 23.4 WC - Nurse 2 - General Ulcer CM Notes Start: 04/30/18 15:36 Freq: Status: Active Protocol: Activity Type Activity Date Activity User E-Sign Co-Sign Detail Recorded Client Recorded Date Recorded By Document 05/07/18 16:16 MW [id number] 05/07/18 16:18 MW 05/07/18 16:16 Wound Center Nurse 2 [Procedure/Treatment] #1 L Vaz -Time 16:17 -Correct Patient Yes -Correct Side, Site, Position Yes -Correct Procedure Yes -Procedure Performed Yes -Type of Procedure Debridement -Clinical Debridement Subcutaneous -Post Debridement Size (cm) - Length 1.7 -Post Debridement Size (cm) - Width 1.9 -Post Debridement Size (cm) - Depth 0.2 -Total Square Cm 3.23 -Wound/Ulcer Outcome Not Healed -Ulcer Cleansing Rinsed/ Irrigated with Saline -Foul Odor after Cleansing No -Bioengineered Tissue No -Bleeding Controlled with Pressure -Offloading No -Treatment Response Procedure Tolerated Well [See Physician Procedure note for Specifics] Pain Scale: 0-10 Numeric [Pain] -Is Patient Pain Free? Yes Musculoskeletal: No Muscle Wasting Neurological: Cranial nerves II-XII grossly intact, Neuro grossly intact Psych/Mental Status: Normal Affect, Appropriate, Alert and oriented to time, place, person, mood and affect Debridement Note Post-Debridement Measurements/Treatment WC - Nurse 2 - General Ulcer CM Notes Start: 04/30/18 15:36 Freq: Status: Active Protocol: Activity Type Activity Date Activity User E-Sign Co-Sign Detail Recorded Client Recorded Date Recorded By Document 04/30/18 16:11 [id number] 04/30/18 16:24 Document 05/07/18 16:16 MW [id number] 05/07/18 16:18 MW 04/30/18 05/07/18 16:11 16:16 Wound Center Nurse 2 #1 L Vaz -Time 16:11 16:17 -Correct Patient Yes Yes -Correct Side, Site, Position Yes Yes -Correct Procedure Yes Yes -Procedure Performed Yes Yes -Type of Procedure Debridement Debridement -Clinical Debridement Subcutaneous Subcutaneous -Post Debridement Size (cm) - Length 1.9 1.7 -Post Debridement Size (cm) - Width 1.8 1.9 -Post Debridement Size (cm) - Depth 0.3 0.2 -Total Square Cm 3.42 3.23 -Wound/Ulcer Outcome Healed- Graft Not Healed -Ulcer Cleansing Rinsed/ Irrigated with Saline -Foul Odor after Cleansing No -Bioengineered Tissue No -Topical Lidocaine (%) 4 -Bleeding Controlled with NA Pressure -Offloading No No -Treatment Response Procedure Procedure Tolerated Well Tolerated Well Pain Scale: 0-10 Numeric Is Patient Pain Free? Yes Yes Laterality: Left - Anterior tibial surface Type of Debridement: Excisional debridement Anesthesia Used: 5% Lidocaine Gel Depth: Down to and including healthy tissue, in the subcutaneous layer Percentage of wound debrided: 100 Instrument Used: 5mm curette Severity: Fat Layer Exposed Amount of bleeding with debridement: Mild Bleeding Controlled with: Compression and gauze Patient tolerated procedure well Assessment/Plan Active Problems Traumatic open wound of lower leg (Chronic) Leg swelling (Chronic) Edema of leg (Chronic) Assessment: This is a 57-year-old female who presented with a traumatic wound on the anterolateral aspect of the left calf. The injury occurred approximately 2 months prior to presentation, and has failed to heal appropriately. The patient presented with ralph, nonviable tissue within the wound itself. She is known to be a diabetic. Patient has undergone a battery of diagnostic tests, with results as follows: Glucose 150, sodium 140, potassium 4.8, chloride 103, BUN 15, creatinine 0.80, calcium 9.5, total protein 6.7, albumin 3.9, alkaline phosphatase 61, AST 20, ALT 35, hemoglobin A1c 8.3, white blood count 6.2, hemoglobin 14.2, hematocrit 41.1, platelets 253,000. The patient's prior cultures were positive for Klebsiella pneumonia, pseudomonas aeruginosa, and Streptococcus. She was placed on Levaquin 750 mg p.o. daily for a total of 10 days, and completed her course. Recently, another culture was positive for Pseudomonas. The patient has now completed another prescription for Levaquin 750 mg p.o. daily for 10 days. A noninvasive lower extremity arterial study is normal, revealing triphasic waveforms at ankle level bilaterally, normal resting ankle?brachial indices bilaterally, and normal digital-brachial indices bilaterally. A venous duplex examination reveals incompetence of the left great saphenous vein below the knee. The left small saphenous vein appears competent. Plan: An excisional debridement has been performed today, and will continue on a weekly basis. A noninvasive lower extremity arterial study is normal. We will continue the use of TubiGrip compression to the left lower extremity to assist in the control of swelling and edema. She is to use a double layer Tubigrip on the left lower extremity. She has also been encouraged to elevate her lower extremities as much as possible, and to avoid prolonged idle sitting. The patient has been encouraged to assure adequate nutrition. Optimizing glycemic control has also been advised. We are to continue the use of Silver [place], which will be applied topically every other day. We are also to seek preauthorization for the use of Grafix Prime, a skin graft substitute/allograft. Because of the delay in healing progress, the patient's wound has been again cultured for both aerobic and anaerobic bacteria. Results revealed the presence of Pseudomonas species, and the patient has completed a course of Levaquin 750 mg p.o. daily for a total of 10 days. The patient will return in 1 week for reassessment. Influenza vaccine was not administered today. The patient is not a smoker. Patient weighs 265 pounds. She stands 5 feet 4 inches tall. Her BMI is 45.5, which places her in a class III category. Weight loss has been recommended, and collaboration with the patient's primary care physician has been recommended.
[2018-05-21 15:31] VITALS: BP 156/65; PULSE 97; RESP 18; TEMP 36.6; BMI 46.1
--- NOTE | 2018-05-21 16:35 | PCM.WC.HP ---
(1) Traumatic open wound of lower leg Status: Chronic Current Visit: Yes Qualifiers: Encounter type: subsequent encounter Laterality: left Qualified Code(s): S81.802D - Unspecified open wound, left lower leg, subsequent encounter Code(s): S81.809A - Unspecified open wound, unspecified lower leg, initial encounter (2) Leg swelling Status: Chronic Current Visit: Yes Code(s): M79.89 - Other specified soft tissue disorders (3) Edema of leg Status: Chronic Current Visit: Yes Code(s): R60.0 - Localized edema (4) Diabetes mellitus Status: Chronic Current Visit: No Qualifiers: Diabetes mellitus type: type 2 Code(s): E11.9 - Type 2 diabetes mellitus without complications (5) Morbid obesity with BMI of 45.0-49.9, adult Status: Chronic Current Visit: No Code(s): E66.01 - Morbid (severe) obesity due to excess calories; Z68.42 - Body mass index (BMI) 45.0-49.9, adult (6) COPD (chronic obstructive pulmonary disease) Status: Chronic Current Visit: No Code(s): J44.9 - Chronic obstructive pulmonary disease, unspecified (7) Coronary artery arteriosclerosis Status: Chronic Current Visit: No Code(s): I25.10 - Atherosclerotic heart disease of [place] coronary artery without angina pectoris History of Present Illness Chief Complaint: Traumatic open wound of the left lower extremity History of Wound: This is a 57-year-old diabetic female who was in her normal state of health until approximately 2 months prior to presentation. At that time, she sustained trauma to the anterolateral aspect of the left calf, striking her leg against the bed frame. A wound resulted, which has failed to heal in normal fashion. She subsequently struck her leg against the bed frame a second time, again injuring the left lower extremity in the same location. She claims to have chronic swelling in the left lower extremity, that precedes her current injury. She sleeps in a recumbent position at night. 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 Past Medical History Past Medical History: Chronic Problems Traumatic open wound of lower leg (Chronic) Leg swelling (Chronic) Edema of leg (Chronic) Diabetes mellitus (Chronic) Morbid obesity with BMI of 45.0-49.9, adult (Chronic) COPD (chronic obstructive pulmonary disease) (Chronic) Coronary artery arteriosclerosis (Chronic) Surgical History: - - The patient has a history of coronary artery stent placement. She has undergone open reduction and internal fixation of a left tibia fracture. She underwent right meniscus repair in the past. She is a Ab0. Allergies/Adverse Reactions: Allergies No Known Allergies Allergy (Verified 09/03/13 11:12) Home Medications: Ambulatory Orders Medication Instructions Recorded Aspirin E.C. [Ecotrin] 81 mg PO DAILY@0800 09/03/13 Hydrocodone/Acetaminophen [Vicodin 1 - 2 tablet PO Q6H PRN PRN 09/03/13 5-300 mg Tablet] Lisinopril 10 mg PO DAILY 09/03/13 Metformin [Metformin HCl] 1,000 mg PO BID 09/03/13 Metoprolol Tartrate 50 mg PO DAILY 09/03/13 Dulaglutide [Trulicity] 0.75 mg SQ 01/02/18 Fluticasone/Vilanterol [Breo 1 each IH 01/02/18 Ellipta 200-25 Mcg INH] Insulin Glargine,Hum.rec.anlog 56 unit BID 01/02/18 [Lantus] Sitagliptin Phosphate [Januvia] 25 mg PO DAILY 01/02/18 Tiotropium [place] [Spiriva] 18 mcg IH 01/02/18 - Family History Paternal - - The patient's father at the age of 78 with history of chronic obstructive pulmonary disease. The patient's mother at the age of 84 with history of chronic obstructive pulmonary disease. Smoking Status: Former smoker Tobacco Use: Non-smoker Review of Systems Constitutional: Denies: Chills, Fever, Weight Change Eyes: Denies: Pain, Vision Change HEENT: Denies: Difficulty Hearing, Difficulty Swallowing, Sinus Congestion Cardiovascular: Denies: Chest Pain, Palpitations Respiratory: Denies: Cough, Shortness of Breath Gastrointestinal: Denies: Diarrhea, Nausea, Vomiting Genitourinary: Denies: Dysuria, Hematuria Endocrine: Denies: Heat/ Cold Intolerance, Polydipsia, Polyuria Hematologic/ Lymphatic: Denies: Easy Bruising, Easy Bleeding - Physical Exam Vital Signs Temp Pulse Resp BP Pulse Ox 97.8 F 97 18 156/65 H 94 05/21/18 15:31 05/21/18 15:31 05/21/18 15:31 05/21/18 15:31 04/24/18 00:31 General: Alert, Oriented x3, Cooperative, No apparent distress, Well developed, Well nourished HEENT: Atraumatic, PERRLA, EOMI, Normocephalic Oral: Moist Mucosa Neck: No JVD Lungs: Normal air movement Abdomen: Non-Distended Extremities: No clubbing, No cyanosis, No edema, No Calf Tenderness, - - There is no significant swelling or edema in the patient's left lower extremity. The wound on the left lateral calf persists, but is smaller in size. Dimensions are documented elsewhere. No sign of infection or cellulitis. There is a small amount of bioburden. The base of the wound is generally pink and healthy in appearance. There is evidence of peripheral epithelialization. Skin: No rashes Wound Measurements and Assessment WC - Nurse 1 - General Ulcer Measurement Start: 04/30/18 15:36 Freq: Status: Active Protocol: Activity Type Activity Date Activity User E-Sign Co-Sign Detail Recorded Client Recorded Date Recorded By Document 05/21/18 15:31 [facility] [id number] 05/21/18 15:34 [facility] 05/21/18 15:31 Wound Center Nurse 1 [Ulcer Assessment] #1 L Vaz -Combined with other wound No -Current Size (cm) - Length 1.6 -Current Size (cm) - Width 1.0 -Current Size (cm) - Depth 0.1 -Total Square Cm 1.60 -Photo Taken No -Epithelialization Small 1-33% -Tunneling No -Undermining/Tunneling No -Circular Undermining No -Exudate Amt Small -Exudate Type Serosanguineous -Wound Margin Flat & Intact -Granulation Amt Large (67-100%) -Granulation Quality Red -Slough/Fibrin Yes -Necrosis Amt Small (1-33%) -Necrotic Tissue Type Adherent Slough -Structure Exposed N/A -Texture (Ketty-wound Skin Appearance) Assessed Localized Edema -Moisture (Ketty-wound Skin Appearance Assessed ) Dry/Scaly -Color (Ketty-wound Skin Appearance) Assessed -Temperature (Ketty-wound Skin No Abnormality Appearance) (Pt Warm) -Tenderness on Palpation (Ketty-wound No Skin Appearance) -Ulcer Cleansing Rinsed/ Irrigated with Saline -Foul Odor after Cleansing No -Anesthetic Used 4% Lidocaine Solution [Edema Assessment] -Lower Limb Edema Present Yes -Left Calf (cm) 42.7 -Left Ankle (cm) 23.2 WC - Nurse 2 - General Ulcer CM Notes Start: 04/30/18 15:36 Freq: Status: Active Protocol: Activity Type Activity Date Activity User E-Sign Co-Sign Detail Recorded Client Recorded Date Recorded By Document 05/21/18 16:28 MW [id number] 05/21/18 16:32 MW 05/21/18 16:28 Wound Center Nurse 2 [Procedure/Treatment] #1 L Vaz -Time 16:29 -Correct Patient Yes -Correct Side, Site, Position Yes -Correct Procedure Yes -Procedure Performed Yes -Type of Procedure Debridement -Clinical Debridement Subcutaneous -Post Debridement Size (cm) - Length 1.6 -Post Debridement Size (cm) - Width 1.2 -Post Debridement Size (cm) - Depth 0.1 -Total Square Cm 1.92 -Wound/Ulcer Outcome Not Healed -Ulcer Cleansing Rinsed/ Irrigated with Saline -Foul Odor after Cleansing No -Bioengineered Tissue No -Bleeding Controlled with Pressure -Offloading No -Treatment Response Procedure Tolerated Well [See Physician Procedure note for Specifics] Pain Scale: 0-10 Numeric [Pain] -Is Patient Pain Free? Yes Musculoskeletal: No Muscle Wasting Neurological: Cranial nerves II-XII grossly intact, Neuro grossly intact Psych/Mental Status: Normal Affect, Appropriate, Alert and oriented to time, place, person, mood and affect Debridement Note Post-Debridement Measurements/Treatment WC - Nurse 2 - General Ulcer CM Notes Start: 04/30/18 15:36 Freq: Status: Active Protocol: Activity Type Activity Date Activity User E-Sign Co-Sign Detail Recorded Client Recorded Date Recorded By Document 04/30/18 16:11 JS [id number] 04/30/18 16:24 JS Document 05/07/18 16:16 MW [id number] 05/07/18 16:18 MW Document 05/21/18 16:28 MW [id number] 05/21/18 16:32 MW 04/30/18 05/07/18 05/21/18 16:11 16:16 16:28 Wound Center Nurse 2 #1 L Vaz -Time 16:11 16:17 16:29 -Correct Patient Yes Yes Yes -Correct Side, Site, Position Yes Yes Yes -Correct Procedure Yes Yes Yes -Procedure Performed Yes Yes Yes -Type of Procedure Debridement Debridement Debridement -Clinical Debridement Subcutaneous Subcutaneous Subcutaneous -Post Debridement Size (cm) - Length 1.9 1.7 1.6 -Post Debridement Size (cm) - Width 1.8 1.9 1.2 -Post Debridement Size (cm) - Depth 0.3 0.2 0.1 -Total Square Cm 3.42 3.23 1.92 -Wound/Ulcer Outcome Healed- Graft Not Healed Not Healed -Ulcer Cleansing Rinsed/ Rinsed/ Irrigated with Irrigated with Saline Saline -Foul Odor after Cleansing No No -Bioengineered Tissue No No -Topical Lidocaine (%) 4 -Bleeding Controlled with NA Pressure Pressure -Offloading No No No -Treatment Response Procedure Procedure Procedure Tolerated Well Tolerated Well Tolerated Well Pain Scale: 0-10 Numeric Is Patient Pain Free? Yes Yes Yes Laterality: Left - Lateral calf Type of Debridement: Excisional debridement Anesthesia Used: 5% Lidocaine Gel Depth: Down to and including healthy tissue, in the subcutaneous layer Percentage of wound debrided: 100 Instrument Used: 5mm curette Severity: Fat Layer Exposed Amount of bleeding with debridement: Mild Bleeding Controlled with: Compression and gauze Patient tolerated procedure well Assessment/Plan Active Problems Traumatic open wound of lower leg (Chronic) Leg swelling (Chronic) Edema of leg (Chronic) Assessment: This is a 57-year-old female who presented with a traumatic wound on the anterolateral aspect of the left calf. The injury occurred approximately 2 months prior to presentation, and has failed to heal appropriately. The patient presented with ralph, nonviable tissue within the wound itself. She is known to be a diabetic. Patient has undergone a battery of diagnostic tests, with results as follows: Glucose 150, sodium 140, potassium 4.8, chloride 103, BUN 15, creatinine 0.80, calcium 9.5, total protein 6.7, albumin 3.9, alkaline phosphatase 61, AST 20, ALT 35, hemoglobin A1c 8.3, white blood count 6.2, hemoglobin 14.2, hematocrit 41.1, platelets 253,000. The patient's prior cultures were positive for Klebsiella pneumonia, pseudomonas aeruginosa, and Streptococcus. She was placed on Levaquin 750 mg p.o. daily for a total of 10 days, and completed her course. Recently, another culture was positive for Pseudomonas. The patient has now completed another prescription for Levaquin 750 mg p.o. daily for 10 days. A noninvasive lower extremity arterial study is normal, revealing triphasic waveforms at ankle level bilaterally, normal resting ankle?brachial indices bilaterally, and normal digital-brachial indices bilaterally. A venous duplex examination reveals incompetence of the left great saphenous vein below the knee. The left small saphenous vein appears competent. The patient has shown significant improvement in recent weeks, with progressive decrease in the size of her wound. Plan: An excisional debridement has been performed today, and will continue on a weekly basis. A noninvasive lower extremity arterial study is normal. We will continue the use of TubiGrip compression to the left lower extremity to assist in the control of swelling and edema. She is to use a double layer Tubigrip on the left lower extremity. She has also been encouraged to elevate her lower extremities as much as possible, and to avoid prolonged idle sitting. The patient has been encouraged to assure adequate nutrition. Optimizing glycemic control has also been advised. We are to continue the use of [place], which will be applied topically every other day. We have sought preauthorization for the use of Grafix Prime, a skin graft substitute/allograft. The skin graft substitute has been approved, and will be implemented at subsequent visits. The patient will return in 1 week for reassessment. Influenza vaccine was not administered today. The patient is not a smoker. Patient weighs 265 pounds. She stands 5 feet 4 inches tall. Her BMI is 45.5, which places her in a class III category. Weight loss has been recommended, and collaboration with the patient's primary care physician has been recommended.
== END 2018-05-24 23:59 ==
LOC: WC 15:30
PROVIDERS: PCP Nurse Practitioner Primary Care; Referring Provider Surgery; Visit Provider Surgery
DX: S81.832A Puncture wound without foreign body, left lower leg, initial encounter (principal); W22.03XA Walked into furniture, initial encounter; E11.9 Type 2 diabetes mellitus without complications; E66.01 Morbid (severe) obesity due to excess calories; Z68.42 Body mass index [BMI] 45.0-49.9, adult; Z71.3 Dietary counseling and surveillance; J44.9 Chronic obstructive pulmonary disease, unspecified; I25.10 Atherosclerotic heart disease of native coronary artery without angina pectoris; Z79.4 Long term (current) use of insulin; Z79.899 Other long term (current) drug therapy; Z87.891 Personal history of nicotine dependence
CPT/HCPCS: 11042; 99213; G0463

== ENCOUNTER 2018-06-19 11:30 | Outpatient (RCR) | payer OTHER, SELFPAY ==
[2018-05-25 00:57] VITALS: BP 156/65; PULSE 97; RESP 18; TEMP 36.6; O2SAT 94
[2018-05-28 15:31] VITALS: BP 163/86; PULSE 110; RESP 20; TEMP 36.4; BMI 46.1
--- NOTE | 2018-05-28 16:43 | PCM.WC.HP ---
(1) Traumatic open wound of lower leg Status: Chronic Current Visit: Yes Qualifiers: Encounter type: subsequent encounter Laterality: left Qualified Code(s): S81.802D - Unspecified open wound, left lower leg, subsequent encounter Code(s): S81.809A - Unspecified open wound, unspecified lower leg, initial encounter (2) Leg swelling Status: Chronic Current Visit: Yes Code(s): M79.89 - Other specified soft tissue disorders (3) Edema of leg Status: Chronic Current Visit: Yes Code(s): R60.0 - Localized edema (4) Diabetes mellitus Status: Chronic Current Visit: Yes Qualifiers: Diabetes mellitus type: type 2 Code(s): E11.9 - Type 2 diabetes mellitus without complications (5) Morbid obesity with BMI of 45.0-49.9, adult Status: Chronic Current Visit: No Code(s): E66.01 - Morbid (severe) obesity due to excess calories; Z68.42 - Body mass index (BMI) 45.0-49.9, adult (6) COPD (chronic obstructive pulmonary disease) Status: Chronic Current Visit: No Code(s): J44.9 - Chronic obstructive pulmonary disease, unspecified (7) Coronary artery arteriosclerosis Status: Chronic Current Visit: No Code(s): I25.10 - Atherosclerotic heart disease of [place] coronary artery without angina pectoris History of Present Illness Chief Complaint: Traumatic open wound of the left lower extremity History of Wound: This is a 57-year-old diabetic female who was in her normal state of health until approximately 2 months prior to presentation. At that time, she sustained trauma to the anterolateral aspect of the left calf, striking her leg against the bed frame. A wound resulted, which has failed to heal in normal fashion. She subsequently struck her leg against the bed frame a second time, again injuring the left lower extremity in the same location. She claims to have chronic swelling in the left lower extremity, that precedes her current injury. She sleeps in a recumbent position at night. 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 Past Medical History Past Medical History: Chronic Problems Traumatic open wound of lower leg (Chronic) Leg swelling (Chronic) Edema of leg (Chronic) Diabetes mellitus (Chronic) Morbid obesity with BMI of 45.0-49.9, adult (Chronic) COPD (chronic obstructive pulmonary disease) (Chronic) Coronary artery arteriosclerosis (Chronic) Surgical History: - - The patient has a history of coronary artery stent placement. She has undergone open reduction and internal fixation of a left tibia fracture. She underwent right meniscus repair in the past. She is a Ab0. Allergies/Adverse Reactions: Allergies No Known Allergies Allergy (Verified 09/03/13 11:12) Home Medications: Ambulatory Orders Medication Instructions Recorded Aspirin E.C. [Ecotrin] 81 mg PO DAILY@0800 09/03/13 Hydrocodone/Acetaminophen [Vicodin 1 - 2 tablet PO Q6H PRN PRN 09/03/13 5-300 mg Tablet] Lisinopril 10 mg PO DAILY 09/03/13 Metformin [Metformin HCl] 1,000 mg PO BID 09/03/13 Metoprolol Tartrate 50 mg PO DAILY 09/03/13 Dulaglutide [Trulicity] 0.75 mg SQ 01/02/18 Fluticasone/Vilanterol [Breo 1 each IH 01/02/18 Ellipta 200-25 Mcg INH] Insulin Glargine,Hum.rec.anlog 56 unit BID 01/02/18 [Lantus] Sitagliptin Phosphate [Januvia] 25 mg PO DAILY 01/02/18 Tiotropium [place] [Spiriva] 18 mcg IH 01/02/18 - Family History Paternal - - The patient's father at the age of 78 with history of chronic obstructive pulmonary disease. The patient's mother at the age of 84 with history of chronic obstructive pulmonary disease. Smoking Status: Former smoker Tobacco Use: Non-smoker Review of Systems Constitutional: Denies: Chills, Fever, Weight Change Eyes: Denies: Pain, Vision Change HEENT: Denies: Difficulty Hearing, Difficulty Swallowing, Sinus Congestion Cardiovascular: Denies: Chest Pain, Palpitations Respiratory: Denies: Cough, Shortness of Breath Gastrointestinal: Denies: Diarrhea, Nausea, Vomiting Genitourinary: Denies: Dysuria, Hematuria Endocrine: Denies: Heat/ Cold Intolerance, Polydipsia, Polyuria Hematologic/ Lymphatic: Denies: Easy Bruising, Easy Bleeding - Physical Exam Vital Signs Temp Pulse Resp BP Pulse Ox 97.5 F L 110 H 20 H 163/86 H 94 05/28/18 15:31 05/28/18 15:31 05/28/18 15:31 05/28/18 15:31 05/25/18 00:57 General: Alert, Oriented x3, Cooperative, No apparent distress, Well developed, Well nourished HEENT: Atraumatic, PERRLA, EOMI, Normocephalic Oral: Moist Mucosa Neck: No JVD Lungs: Normal air movement Abdomen: Non-Distended Extremities: No clubbing, No cyanosis, No edema, No Calf Tenderness, - - On the left lateral calf persists. Is generally pink and healthy in appearance, with only a small amount of bioburden. Dimensions are documented elsewhere. There is no sign of infection or cellulitis. Skin: No rashes Wound Measurements and Assessment WC - Nurse 1 - General Ulcer Measurement Start: 05/28/18 15:31 Freq: Status: Active Protocol: Activity Type Activity Date Activity User E-Sign Co-Sign Detail Recorded Client Recorded Date Recorded By Document 05/28/18 15:31 MW [id number] 05/28/18 15:39 MW 05/28/18 15:31 Wound Center Nurse 1 [Ulcer Assessment] #1 L Vaz -Combined with other wound No -Current Size (cm) - Length 1.9 -Current Size (cm) - Width 1.0 -Current Size (cm) - Depth 0.1 -Total Square Cm 1.90 -Date of Last Picture (Recall this 05/28/18 field) -Photo Taken Yes -Epithelialization None Present -Tunneling No -Undermining/Tunneling No -Circular Undermining No -Exudate Amt Small -Exudate Type Serosanguineous -Wound Margin Flat & Intact -Granulation Amt Medium (34-66%) -Granulation Quality Red -Slough/Fibrin Yes -Necrosis Amt Small (1-33%) -Necrotic Tissue Type Adherent Slough -Structure Exposed N/A -Texture (Ketty-wound Skin Appearance) Assessed Localized Edema Scarring -Moisture (Ketty-wound Skin Appearance Assessed ) Dry/Scaly -Color (Ketty-wound Skin Appearance) Assessed Hemosiderin Staining -Temperature (Ketty-wound Skin No Abnormality Appearance) (Pt Warm) -Tenderness on Palpation (Ketty-wound No Skin Appearance) -Ulcer Cleansing Rinsed/ Irrigated with Saline -Foul Odor after Cleansing No -Anesthetic Used 4% Lidocaine Solution 5% Lidocaine Gel [Edema Assessment] -Lower Limb Edema Present Yes -Left Calf (cm) 42.7 -Left Ankle (cm) 23.5 WC - Nurse 2 - General Ulcer CM Notes Start: 05/28/18 15:31 Freq: Status: Active Protocol: Activity Type Activity Date Activity User E-Sign Co-Sign Detail Recorded Client Recorded Date Recorded By Document 05/28/18 16:34 DV [id number] 05/28/18 16:42 DV 05/28/18 16:34 Wound Center Nurse 2 [Procedure/Treatment] #1 L Vaz -Time 16:36 -Correct Patient Yes -Correct Side, Site, Position Yes -Correct Procedure Yes -Procedure Performed Yes -Type of Procedure Debridement -Clinical Debridement Subcutaneous -Post Debridement Size (cm) - Length 2.0 -Post Debridement Size (cm) - Width 1.2 -Post Debridement Size (cm) - Depth 0.1 -Total Square Cm 2.40 -Wound/Ulcer Outcome Not Healed -Ulcer Cleansing Rinsed/ Irrigated with Saline -Foul Odor after Cleansing No -Bioengineered Tissue Yes -Type of bioengineered Tissue GRAFIX-Pime -Expiration Date 03/10/19 -Product Lot Number [id number] -Saline Lot Number [id number] -Lidocaine (ml) 4 -Bleeding Controlled with Pressure -Offloading No -Treatment Response Procedure Tolerated Well [See Physician Procedure note for Specifics] Pain Scale: 0-10 Numeric [Pain] -Is Patient Pain Free? Yes Musculoskeletal: No Muscle Wasting Neurological: Cranial nerves II-XII grossly intact, Neuro grossly intact Psych/Mental Status: Normal Affect, Appropriate, Alert and oriented to time, place, person, mood and affect Debridement Note Post-Debridement Measurements/Treatment WC - Nurse 2 - General Ulcer CM Notes Start: 05/28/18 15:31 Freq: Status: Active Protocol: Activity Type Activity Date Activity User E-Sign Co-Sign Detail Recorded Client Recorded Date Recorded By Document 05/28/18 16:34 DV [id number] 05/28/18 16:42 DV 05/28/18 16:34 Wound Center Nurse 2 #1 L Vaz -Time 16:36 -Correct Patient Yes -Correct Side, Site, Position Yes -Correct Procedure Yes -Procedure Performed Yes -Type of Procedure Debridement -Clinical Debridement Subcutaneous -Post Debridement Size (cm) - Length 2.0 -Post Debridement Size (cm) - Width 1.2 -Post Debridement Size (cm) - Depth 0.1 -Total Square Cm 2.40 -Wound/Ulcer Outcome Not Healed -Ulcer Cleansing Rinsed/ Irrigated with Saline -Foul Odor after Cleansing No -Bioengineered Tissue Yes -Type of bioengineered Tissue GRAFIX-Pime -Expiration Date 03/10/19 -Product Lot Number [id number] -Saline Lot Number [id number] -Lidocaine (ml) 4 -Bleeding Controlled with Pressure -Offloading No -Treatment Response Procedure Tolerated Well Pain Scale: 0-10 Numeric Is Patient Pain Free? Yes Laterality: Left - Lateral calf Type of Debridement: Excisional debridement Anesthesia Used: 5% Lidocaine Gel Depth: Down to and including healthy tissue, in the subcutaneous layer Percentage of wound debrided: 100 Instrument Used: 5mm curette Severity: Fat Layer Exposed Amount of bleeding with debridement: Mild Bleeding Controlled with: Compression and gauze Patient tolerated procedure well Following the routine excisional debridement, a Grafix PL allograft was applied topically. A 2.0 cm x 1.5 cm allograft was selected. Upon removal from its sterile packaging, it was applied topically. It was then moistened with sterile saline. Wound veil was applied, and the site was then anchored in place using Steri-Strips. Gauze was then placed, and again anchored. A final gauze dressing was applied, and Tubigrip's were then placed for compression purposes. The patient tolerated the procedure well. Assessment/Plan Active Problems Traumatic open wound of lower leg (Chronic) Leg swelling (Chronic) Edema of leg (Chronic) Diabetes mellitus (Chronic) Assessment: This is a 57-year-old female who presented with a traumatic wound on the anterolateral aspect of the left calf. The injury occurred approximately 2 months prior to presentation, and has failed to heal appropriately. The patient presented with ralph, nonviable tissue within the wound itself. She is known to be a diabetic. Patient has undergone a battery of diagnostic tests, with results as follows: Glucose 150, sodium 140, potassium 4.8, chloride 103, BUN 15, creatinine 0.80, calcium 9.5, total protein 6.7, albumin 3.9, alkaline phosphatase 61, AST 20, ALT 35, hemoglobin A1c 8.3, white blood count 6.2, hemoglobin 14.2, hematocrit 41.1, platelets 253,000. The patient's prior cultures were positive for Klebsiella pneumonia, pseudomonas aeruginosa, and Streptococcus. She was placed on Levaquin 750 mg p.o. daily for a total of 10 days, and completed her course. Recently, another culture was positive for Pseudomonas. The patient has now completed another prescription for Levaquin 750 mg p.o. daily for 10 days. A noninvasive lower extremity arterial study is normal, revealing triphasic waveforms at ankle level bilaterally, normal resting ankle?brachial indices bilaterally, and normal digital-brachial indices bilaterally. A venous duplex examination reveals incompetence of the left great saphenous vein below the knee. The left small saphenous vein appears competent. The patient has shown significant improvement in recent weeks, with progressive decrease in the size of her wound. Plan: An allograft was placed today, and will be left in place for 1 week, relatively undisturbed. The patient is to continue elevating her legs as much as possible. Compression is to be continued as previously, using Tubigrip's. The patient will return in 1 week for reassessment. Another allograft is anticipated for her return appointment. A noninvasive lower extremity arterial study is normal. We will continue the use of TubiGrip compression to the left lower extremity to assist in the control of swelling and edema. She is to use a double layer Tubigrip on the left lower extremity. She has also been encouraged to elevate her lower extremities as much as possible, and to avoid prolonged idle sitting. The patient has been encouraged to assure adequate nutrition. Optimizing glycemic control has also been advised. The patient will return in 1 week for reassessment. Influenza vaccine was not administered today. The patient is not a smoker. Patient weighs 265 pounds. She stands 5 feet 4 inches tall. Her BMI is 45.5, which places her in a class III category. Weight loss has been recommended, and collaboration with the patient's primary care physician has been recommended.
--- NOTE | 2018-05-28 16:48 | HP.PCM_ITS ---
(1) Traumatic open wound of lower leg Status: Chronic Current Visit: Yes Qualifiers: Encounter type: subsequent encounter Laterality: left Qualified Code(s): S81.802D - Unspecified open wound, left lower leg, subsequent encounter Code(s): S81.809A - Unspecified open wound, unspecified lower leg, initial encounter (2) Leg swelling Status: Chronic Current Visit: Yes Code(s): M79.89 - Other specified soft tissue disorders (3) Edema of leg Status: Chronic Current Visit: Yes Code(s): R60.0 - Localized edema (4) Diabetes mellitus Status: Chronic Current Visit: Yes Qualifiers: Diabetes mellitus type: type 2 Code(s): E11.9 - Type 2 diabetes mellitus without complications (5) Morbid obesity with BMI of 45.0-49.9, adult Status: Chronic Current Visit: No Code(s): E66.01 - Morbid (severe) obesity due to excess calories; Z68.42 - Body mass index (BMI) 45.0-49.9, adult (6) COPD (chronic obstructive pulmonary disease) Status: Chronic Current Visit: No Code(s): J44.9 - Chronic obstructive pulmonary disease, unspecified (7) Coronary artery arteriosclerosis Status: Chronic Current Visit: No Code(s): I25.10 - Atherosclerotic heart disease of [place] coronary artery without angina pectoris History of Present Illness Chief Complaint: Traumatic open wound of the left lower extremity History of Wound: This is a 57-year-old diabetic female who was in her normal state of health until approximately 2 months prior to presentation. At that time, she sustained trauma to the anterolateral aspect of the left calf, striking her leg against the bed frame. A wound resulted, which has failed to heal in normal fashion. She subsequently struck her leg against the bed frame a second time, again injuring the left lower extremity in the same location. She claims to have chronic swelling in the left lower extremity, that precedes her current injury. She sleeps in a recumbent position at night. 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 Past Medical History Past Medical History: Chronic Problems Traumatic open wound of lower leg (Chronic) Leg swelling (Chronic) Edema of leg (Chronic) Diabetes mellitus (Chronic) Morbid obesity with BMI of 45.0-49.9, adult (Chronic) COPD (chronic obstructive pulmonary disease) (Chronic) Coronary artery arteriosclerosis (Chronic) Surgical History: - - The patient has a history of coronary artery stent placement. She has undergone open reduction and internal fixation of a left tibia fracture. She underwent right meniscus repair in the past. She is a Ab0. Allergies/Adverse Reactions: Allergies No Known Allergies Allergy (Verified 09/03/13 11:12) Home Medications: Ambulatory Orders Medication Instructions Recorded Aspirin E.C. [Ecotrin] 81 mg PO DAILY@0800 09/03/13 Hydrocodone/Acetaminophen [Vicodin 1 - 2 tablet PO Q6H PRN PRN 09/03/13 5-300 mg Tablet] Lisinopril 10 mg PO DAILY 09/03/13 Metformin [Metformin HCl] 1,000 mg PO BID 09/03/13 Metoprolol Tartrate 50 mg PO DAILY 09/03/13 Dulaglutide [Trulicity] 0.75 mg SQ 01/02/18 Fluticasone/Vilanterol [Breo 1 each IH 01/02/18 Ellipta 200-25 Mcg INH] Insulin Glargine,Hum.rec.anlog 56 unit BID 01/02/18 [Lantus] Sitagliptin Phosphate [Januvia] 25 mg PO DAILY 01/02/18 Tiotropium [place] [Spiriva] 18 mcg IH 01/02/18 - Family History Paternal - - The patient's father at the age of 78 with history of chronic obstructive pulmonary disease. The patient's mother at the age of 84 with history of chronic obstructive pulmonary disease. Smoking Status: Former smoker Tobacco Use: Non-smoker Review of Systems Constitutional: Denies: Chills, Fever, Weight Change Eyes: Denies: Pain, Vision Change HEENT: Denies: Difficulty Hearing, Difficulty Swallowing, Sinus Congestion Cardiovascular: Denies: Chest Pain, Palpitations Respiratory: Denies: Cough, Shortness of Breath Gastrointestinal: Denies: Diarrhea, Nausea, Vomiting Genitourinary: Denies: Dysuria, Hematuria Endocrine: Denies: Heat/ Cold Intolerance, Polydipsia, Polyuria Hematologic/ Lymphatic: Denies: Easy Bruising, Easy Bleeding - Physical Exam Vital Signs Temp Pulse Resp BP Pulse Ox 97.5 F L 110 H 20 H 163/86 H 94 05/28/18 15:31 05/28/18 15:31 05/28/18 15:31 05/28/18 15:31 05/25/18 00:57 General: Alert, Oriented x3, Cooperative, No apparent distress, Well developed, Well nourished HEENT: Atraumatic, PERRLA, EOMI, Normocephalic Oral: Moist Mucosa Neck: No JVD Lungs: Normal air movement Abdomen: Non-Distended Extremities: No clubbing, No cyanosis, No edema, No Calf Tenderness, - - On the left lateral calf persists. Is generally pink and healthy in appearance, with only a small amount of bioburden. Dimensions are documented elsewhere. There is no sign of infection or cellulitis. Skin: No rashes Wound Measurements and Assessment WC - Nurse 1 - General Ulcer Measurement Start: 05/28/18 15:31 Freq: Status: Active Protocol: Activity Type Activity Date Activity User E-Sign Co-Sign Detail Recorded Client Recorded Date Recorded By Document 05/28/18 15:31 MW [id number] 05/28/18 15:39 MW 05/28/18 15:31 Wound Center Nurse 1 [Ulcer Assessment] #1 L Vaz -Combined with other wound No -Current Size (cm) - Length 1.9 -Current Size (cm) - Width 1.0 -Current Size (cm) - Depth 0.1 -Total Square Cm 1.90 -Date of Last Picture (Recall this 05/28/18 field) -Photo Taken Yes -Epithelialization None Present -Tunneling No -Undermining/Tunneling No -Circular Undermining No -Exudate Amt Small -Exudate Type Serosanguineous -Wound Margin Flat & Intact -Granulation Amt Medium (34-66%) -Granulation Quality Red -Slough/Fibrin Yes -Necrosis Amt Small (1-33%) -Necrotic Tissue Type Adherent Slough -Structure Exposed N/A -Texture (Ketty-wound Skin Appearance) Assessed Localized Edema Scarring -Moisture (Ketty-wound Skin Appearance Assessed ) Dry/Scaly -Color (Ketty-wound Skin Appearance) Assessed Hemosiderin Staining -Temperature (Ketty-wound Skin No Abnormality Appearance) (Pt Warm) -Tenderness on Palpation (Ketty-wound No Skin Appearance) -Ulcer Cleansing Rinsed/ Irrigated with Saline -Foul Odor after Cleansing No -Anesthetic Used 4% Lidocaine Solution 5% Lidocaine Gel [Edema Assessment] -Lower Limb Edema Present Yes -Left Calf (cm) 42.7 -Left Ankle (cm) 23.5 WC - Nurse 2 - General Ulcer CM Notes Start: 05/28/18 15:31 Freq: Status: Active Protocol: Activity Type Activity Date Activity User E-Sign Co-Sign Detail Recorded Client Recorded Date Recorded By Document 05/28/18 16:34 DV [id number] 05/28/18 16:42 DV 05/28/18 16:34 Wound Center Nurse 2 [Procedure/Treatment] #1 L Vaz -Time 16:36 -Correct Patient Yes -Correct Side, Site, Position Yes -Correct Procedure Yes -Procedure Performed Yes -Type of Procedure Debridement -Clinical Debridement Subcutaneous -Post Debridement Size (cm) - Length 2.0 -Post Debridement Size (cm) - Width 1.2 -Post Debridement Size (cm) - Depth 0.1 -Total Square Cm 2.40 -Wound/Ulcer Outcome Not Healed -Ulcer Cleansing Rinsed/ Irrigated with Saline -Foul Odor after Cleansing No -Bioengineered Tissue Yes -Type of bioengineered Tissue GRAFIX-Pime -Expiration Date 03/10/19 -Product Lot Number [id number] -Saline Lot Number [id number] -Lidocaine (ml) 4 -Bleeding Controlled with Pressure -Offloading No -Treatment Response Procedure Tolerated Well [See Physician Procedure note for Specifics] Pain Scale: 0-10 Numeric [Pain] -Is Patient Pain Free? Yes Musculoskeletal: No Muscle Wasting Neurological: Cranial nerves II-XII grossly intact, Neuro grossly intact Psych/Mental Status: Normal Affect, Appropriate, Alert and oriented to time, place, person, mood and affect Debridement Note Post-Debridement Measurements/Treatment WC - Nurse 2 - General Ulcer CM Notes Start: 05/28/18 15:31 Freq: Status: Active Protocol: Activity Type Activity Date Activity User E-Sign Co-Sign Detail Recorded Client Recorded Date Recorded By Document 05/28/18 16:34 DV [id number] 05/28/18 16:42 DV 05/28/18 16:34 Wound Center Nurse 2 #1 L Vaz -Time 16:36 -Correct Patient Yes -Correct Side, Site, Position Yes -Correct Procedure Yes -Procedure Performed Yes -Type of Procedure Debridement -Clinical Debridement Subcutaneous -Post Debridement Size (cm) - Length 2.0 -Post Debridement Size (cm) - Width 1.2 -Post Debridement Size (cm) - Depth 0.1 -Total Square Cm 2.40 -Wound/Ulcer Outcome Not Healed -Ulcer Cleansing Rinsed/ Irrigated with Saline -Foul Odor after Cleansing No -Bioengineered Tissue Yes -Type of bioengineered Tissue GRAFIX-Pime -Expiration Date 03/10/19 -Product Lot Number [id number] -Saline Lot Number [id number] -Lidocaine (ml) 4 -Bleeding Controlled with Pressure -Offloading No -Treatment Response Procedure Tolerated Well Pain Scale: 0-10 Numeric Is Patient Pain Free? Yes Laterality: Left - Lateral calf Type of Debridement: Excisional debridement Anesthesia Used: 5% Lidocaine Gel Depth: Down to and including healthy tissue, in the subcutaneous layer Percentage of wound debrided: 100 Instrument Used: 5mm curette Severity: Fat Layer Exposed Amount of bleeding with debridement: Mild Bleeding Controlled with: Compression and gauze Patient tolerated procedure well Following the routine excisional debridement, a Grafix PL allograft was applied topically. A 2.0 cm x 1.5 cm allograft was selected. Upon removal from its aleida rile packaging, it was applied topically. It was then moistened with sterile saline. Wound veil was applied, and the site was then anchored in place using Steri-Strips. Gauze was then placed, and again anchored. A final gauze dressing was applied, and Tubigrip's were then placed for compression purposes. The patient tolerated the procedure well. Assessment/Plan Active Problems Traumatic open wound of lower leg (Chronic) Leg swelling (Chronic) Edema of leg (Chronic) Diabetes mellitus (Chronic) Assessment: This is a 57-year-old female who presented with a traumatic wound on the anterolateral aspect of the left calf. The injury occurred approximately 2 months prior to presentation, and has failed to heal appropriately. The patient presented with ralph, nonviable tissue within the wound itself. She is known to be a diabetic. Patient has undergone a battery of diagnostic tests, with results as follows: Glucose 150, sodium 140, potassium 4.8, chloride 103, BUN 15, creatinine 0.80, calcium 9.5, total protein 6.7, albumin 3.9, alkaline phosphatase 61, AST 20, ALT 35, hemoglobin A1c 8.3, white blood count 6.2, hemo globin 14.2, hematocrit 41.1, platelets 253,000. The patient's prior cultures were positive for Klebsiella pneumonia, pseudomonas aeruginosa, and Streptococcus. She was placed on Levaquin 750 mg p.o. daily for a total of 10 days, and completed her course. Recently, another culture was positive for Pseudomonas. The patient has now completed another prescription for Levaquin 750 mg p.o. daily for 10 days. A noninvasive lower extremity arterial study is normal, revealing triphasic waveforms at ankle level bilaterally, normal resting ankle?brachial indices bilaterally, and normal digital-brachial indices bilaterally. A venous duplex examination reveals incompetence of the left great saphenous vein below the knee. The left small saphenous vein appears competent. The patient has shown significant improvement in recent weeks, with progressive decrease in the size of her wound. Plan: An allograft was placed today, and will be left in place for 1 week, relatively undisturbed. The patient is to continue elevating her legs as much as possible. Compression is to be continued as previously, using Tubigrip's. The patient will return in 1 week for reassessment. Another allograft is anticipated for her return appointment. A noninvasive lower extremity arterial study is normal. We will continue the use of TubiGrip compression to the left lower extremity to assist in the control of swelling and edema. She is to use a double layer Tubigrip on the left lower extremity. She has also been encouraged to elevate her lower extremities as much as possible, and to avoid prolonged idle sitting. The patient has been encouraged to assure adequate nutrition. Optimizing glycemic control has also been advised. The patient will return in 1 week for reassessment. Influenza vaccine was not administered today. The patient is not a smoker. Patient weighs 265 pounds. She stands 5 feet 4 inches tall. Her BMI is 45.5, which places her in a class III category. Weight loss has been recommended, and collaboration with the patient's primary care physician has been recommended.
[2018-06-04 15:28] VITALS: BP 155/88; PULSE 88; RESP 18; TEMP 35.8; BMI 46.1
--- NOTE | 2018-06-04 16:20 | PCM.WC.HP ---
(1) Traumatic open wound of lower leg Status: Chronic Current Visit: Yes Qualifiers: Encounter type: subsequent encounter Laterality: left Qualified Code(s): S81.802D - Unspecified open wound, left lower leg, subsequent encounter Code(s): S81.809A - Unspecified open wound, unspecified lower leg, initial encounter (2) Leg swelling Status: Chronic Current Visit: Yes Code(s): M79.89 - Other specified soft tissue disorders (3) Edema of leg Status: Chronic Current Visit: Yes Code(s): R60.0 - Localized edema (4) Diabetes mellitus Status: Chronic Current Visit: Yes Qualifiers: Diabetes mellitus type: type 2 Code(s): E11.9 - Type 2 diabetes mellitus without complications (5) Morbid obesity with BMI of 45.0-49.9, adult Status: Chronic Current Visit: No Code(s): E66.01 - Morbid (severe) obesity due to excess calories; Z68.42 - Body mass index (BMI) 45.0-49.9, adult (6) COPD (chronic obstructive pulmonary disease) Status: Chronic Current Visit: No Code(s): J44.9 - Chronic obstructive pulmonary disease, unspecified (7) Coronary artery arteriosclerosis Status: Chronic Current Visit: No Code(s): I25.10 - Atherosclerotic heart disease of [place] coronary artery without angina pectoris History of Present Illness Chief Complaint: Traumatic open wound of the left lower extremity History of Wound: This is a 57-year-old diabetic female who was in her normal state of health until approximately 2 months prior to presentation. At that time, she sustained trauma to the anterolateral aspect of the left calf, striking her leg against the bed frame. A wound resulted, which has failed to heal in normal fashion. She subsequently struck her leg against the bed frame a second time, again injuring the left lower extremity in the same location. She claims to have chronic swelling in the left lower extremity, that precedes her current injury. She sleeps in a recumbent position at night. 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 Past Medical History Past Medical History: Chronic Problems Traumatic open wound of lower leg (Chronic) Leg swelling (Chronic) Edema of leg (Chronic) Diabetes mellitus (Chronic) Morbid obesity with BMI of 45.0-49.9, adult (Chronic) COPD (chronic obstructive pulmonary disease) (Chronic) Coronary artery arteriosclerosis (Chronic) Surgical History: - - The patient has a history of coronary artery stent placement. She has undergone open reduction and internal fixation of a left tibia fracture. She underwent right meniscus repair in the past. She is a Ab0. Allergies/Adverse Reactions: Allergies No Known Allergies Allergy (Verified 09/03/13 11:12) Home Medications: Ambulatory Orders Medication Instructions Recorded Aspirin E.C. [Ecotrin] 81 mg PO DAILY@0800 09/03/13 Hydrocodone/Acetaminophen [Vicodin 1 - 2 tablet PO Q6H PRN PRN 09/03/13 5-300 mg Tablet] Lisinopril 10 mg PO DAILY 09/03/13 Metformin [Metformin HCl] 1,000 mg PO BID 09/03/13 Metoprolol Tartrate 50 mg PO DAILY 09/03/13 Dulaglutide [Trulicity] 0.75 mg SQ 01/02/18 Fluticasone/Vilanterol [Breo 1 each IH 01/02/18 Ellipta 200-25 Mcg INH] Insulin Glargine,Hum.rec.anlog 56 unit BID 01/02/18 [Lantus] Sitagliptin Phosphate [Januvia] 25 mg PO DAILY 01/02/18 Tiotropium [place] [Spiriva] 18 mcg IH 01/02/18 - Family History Paternal - - The patient's father at the age of 78 with history of chronic obstructive pulmonary disease. The patient's mother at the age of 84 with history of chronic obstructive pulmonary disease. Smoking Status: Former smoker Tobacco Use: Non-smoker Review of Systems Constitutional: Denies: Chills, Fever, Weight Change Eyes: Denies: Pain, Vision Change HEENT: Denies: Difficulty Hearing, Difficulty Swallowing, Sinus Congestion Cardiovascular: Denies: Chest Pain, Palpitations Respiratory: Denies: Cough, Shortness of Breath Gastrointestinal: Denies: Diarrhea, Nausea, Vomiting Genitourinary: Denies: Dysuria, Hematuria Endocrine: Denies: Heat/ Cold Intolerance, Polydipsia, Polyuria Hematologic/ Lymphatic: Denies: Easy Bruising, Easy Bleeding - Physical Exam Vital Signs Temp Pulse Resp BP Pulse Ox 96.5 F L 88 18 155/88 H 94 06/04/18 15:28 06/04/18 15:28 06/04/18 15:28 06/04/18 15:28 05/25/18 00:57 General: Alert, Oriented x3, Cooperative, No apparent distress, Well developed, Well nourished HEENT: Atraumatic, PERRLA, EOMI, Normocephalic Oral: Moist Mucosa Neck: No JVD Lungs: Normal air movement Abdomen: Non-Distended, Obese Extremities: No clubbing, No cyanosis, No edema, No Calf Tenderness, - - The wound on the left anterior tibial surface is healthy in appearance. The base of the wound is pink, with active granulation tissue. There is no sign of infection or cellulitis. Dimensions are documented elsewhere. There is a small amount of bioburden. Skin: No rashes Wound Measurements and Assessment WC - Nurse 1 - General Ulcer Measurement Start: 05/28/18 15:31 Freq: Status: Active Protocol: Activity Type Activity Date Activity User E-Sign Co-Sign Detail Recorded Client Recorded Date Recorded By Document 06/04/18 15:28 AN [id number] 06/04/18 15:46 AN 06/04/18 15:28 Wound Center Nurse 1 [Ulcer Assessment] #1 L Vaz -Current Size (cm) - Length 1.7 -Current Size (cm) - Width 1.0 -Current Size (cm) - Depth 0.1 -Total Square Cm 1.70 -Classification - Thickness Full Thickness without Exposed Support Structure -Exudate Amt Medium -Exudate Type Serosanguineous -Wound Margin Distinct, Outline Attached -Granulation Amt Large (67-100%) -Granulation Quality Red -Slough/Fibrin Yes -Necrosis Amt Small (1-33%) -Necrotic Tissue Type Adherent Slough -Structure Exposed None/Limited to Skin Breakdown -Texture (Ketty-wound Skin Appearance) Assessed -Moisture (Ketty-wound Skin Appearance Assessed ) -Color (Ketty-wound Skin Appearance) Assessed -Temperature (Ketty-wound Skin No Abnormality Appearance) (Pt Warm) -Tenderness on Palpation (Ketty-wound No Skin Appearance) -Ulcer Cleansing Rinsed/ Irrigated with Saline -Foul Odor after Cleansing No -Anesthetic Used 4% Lidocaine Solution [Edema Assessment] -Left Calf (cm) 43 -Left Ankle (cm) 23.7 WC - Nurse 2 - General Ulcer CM Notes Start: 05/28/18 15:31 Freq: Status: Active Protocol: Activity Type Activity Date Activity User E-Sign Co-Sign Detail Recorded Client Recorded Date Recorded By Document 06/04/18 16:14 MW [id number] 06/04/18 16:19 MW 06/04/18 16:14 Wound Center Nurse 2 [Procedure/Treatment] #1 L Vaz -Time 16:17 -Correct Patient Yes -Correct Side, Site, Position Yes -Correct Procedure Yes -Procedure Performed Yes -Type of Procedure Debridement -Clinical Debridement Subcutaneous -Post Debridement Size (cm) - Length 1.8 -Post Debridement Size (cm) - Width 0.9 -Post Debridement Size (cm) - Depth 0.1 -Total Square Cm 1.62 -Wound/Ulcer Outcome Not Healed -Ulcer Cleansing Rinsed/ Irrigated with Saline -Foul Odor after Cleansing No -Bioengineered Tissue Yes -Type of bioengineered Tissue GRAFIX-Pime -Expiration Date 04/19/19 -Product Lot Number [id number] -Percent Used 100 -Saline Lot Number [id number] -Bleeding Controlled with Pressure -Offloading No -Treatment Response Procedure Tolerated Well [See Physician Procedure note for Specifics] Pain Scale: 0-10 Numeric [Pain] -Is Patient Pain Free? Yes Musculoskeletal: No Muscle Wasting Neurological: Cranial nerves II-XII grossly intact, Neuro grossly intact Psych/Mental Status: Normal Affect, Appropriate, Alert and oriented to time, place, person, mood and affect Debridement Note Post-Debridement Measurements/Treatment WC - Nurse 2 - General Ulcer CM Notes Start: 05/28/18 15:31 Freq: Status: Active Protocol: Activity Type Activity Date Activity User E-Sign Co-Sign Detail Recorded Client Recorded Date Recorded By Document 05/28/18 16:34 DV [id number] 05/28/18 16:42 DV Document 06/04/18 16:14 MW [id number] 06/04/18 16:19 MW 05/28/18 06/04/18 16:34 16:14 Wound Center Nurse 2 #1 L Vaz -Time 16:36 16:17 -Correct Patient Yes Yes -Correct Side, Site, Position Yes Yes -Correct Procedure Yes Yes -Procedure Performed Yes Yes -Type of Procedure Debridement Debridement -Clinical Debridement Subcutaneous Subcutaneous -Post Debridement Size (cm) - Length 2.0 1.8 -Post Debridement Size (cm) - Width 1.2 0.9 -Post Debridement Size (cm) - Depth 0.1 0.1 -Total Square Cm 2.40 1.62 -Wound/Ulcer Outcome Not Healed Not Healed -Ulcer Cleansing Rinsed/ Rinsed/ Irrigated with Irrigated with Saline Saline -Foul Odor after Cleansing No No -Bioengineered Tissue Yes Yes -Type of bioengineered Tissue GRAFIX-Pime GRAFIX-Pime -Expiration Date 03/10/19 04/19/19 -Product Lot Number [id number] -Percent Used 100 -Saline Lot Number [id number] -Lidocaine (ml) 4 -Bleeding Controlled with Pressure Pressure -Offloading No No -Treatment Response Procedure Procedure Tolerated Well Tolerated Well Pain Scale: 0-10 Numeric Is Patient Pain Free? Yes Yes Laterality: Left - Anterior tibial surface Type of Debridement: Excisional debridement Anesthesia Used: 5% Lidocaine Gel Depth: Down to and including healthy tissue, in the subcutaneous layer Percentage of wound debrided: 100 Instrument Used: 5mm curette Severity: Fat Layer Exposed Amount of bleeding with debridement: Mild Bleeding Controlled with: Compression and gauze Patient tolerated procedure well Following a routine excisional debridement, a Grafix PL Prime 1.5 cm x 2.0 cm allograft was applied. Upon removal from its sterile packaging, the allograft was placed over the wound surface. It was moistened with sterile saline. Wound Veil was used to cover the site, and Steri-Strips were used to anchor the graft and Wound Veil in place. A gauze dressing was then applied, and secured with Steri-Strips. The site was then reinforced once again with gauze, and the left lower extremity was placed within a Tubigrip for compression purposes. The patient tolerated the procedure well. Assessment/Plan Active Problems Traumatic open wound of lower leg (Chronic) Leg swelling (Chronic) Edema of leg (Chronic) Diabetes mellitus (Chronic) Assessment: This is a 57-year-old female who presented with a traumatic wound on the anterolateral aspect of the left calf. The injury occurred approximately 2 months prior to presentation, and has failed to heal appropriately. The patient presented with ralph, nonviable tissue within the wound itself. She is known to be a diabetic. Patient has undergone a battery of diagnostic tests, with results as follows: Glucose 150, sodium 140, potassium 4.8, chloride 103, BUN 15, creatinine 0.80, calcium 9.5, total protein 6.7, albumin 3.9, alkaline phosphatase 61, AST 20, ALT 35, hemoglobin A1c 8.3, white blood count 6.2, hemoglobin 14.2, hematocrit 41.1, platelets 253,000. The patient's prior cultures were positive for Klebsiella pneumonia, pseudomonas aeruginosa, and Streptococcus. She was placed on Levaquin 750 mg p.o. daily for a total of 10 days, and completed her course. Recently, another culture was positive for Pseudomonas. The patient has completed another prescription for Levaquin 750 mg p.o. daily for 10 days. A noninvasive lower extremity arterial study is normal, revealing triphasic waveforms at ankle level bilaterally, normal resting ankle?brachial indices bilaterally, and normal digital-brachial indices bilaterally. A venous duplex examination reveals incompetence of the left great saphenous vein below the knee. The left small saphenous vein appears competent. The patient has shown significant improvement in recent weeks, with progressive decrease in the size of her wound. Plan: An allograft was placed today, and will be left in place for 1 week, undisturbed. This is the second application of Grafix PL Prime. The patient is to continue elevating her legs as much as possible. Compression is to be continued as previously, using Tubigrip's. The patient will return in 1 week for reassessment. Another allograft is anticipated for her return appointment. A noninvasive lower extremity arterial study is normal. We will continue the use of TubiGrip compression to the left lower extremity to assist in the control of swelling and edema. She is to use a double layer Tubigrip on the left lower extremity. She has also been encouraged to elevate her lower extremities as much as possible, and to avoid prolonged idle sitting. The patient has been encouraged to assure adequate nutrition. Optimizing glycemic control has also been advised. The patient will return in 1 week for reassessment. Influenza vaccine was not administered today. The patient is not a smoker. Patient weighs 265 pounds. She stands 5 feet 4 inches tall. Her BMI is 45.5, which places her in a class III category. Weight loss has been recommended, and collaboration with the patient's primary care physician has been recommended.
--- NOTE | 2018-06-04 16:24 | HP.PCM_ITS ---
(1) Traumatic open wound of lower leg Status: Chronic Current Visit: Yes Qualifiers: Encounter type: subsequent encounter Laterality: left Qualified Code(s): S81.802D - Unspecified open wound, left lower leg, subsequent encounter Code(s): S81.809A - Unspecified open wound, unspecified lower leg, initial encounter (2) Leg swelling Status: Chronic Current Visit: Yes Code(s): M79.89 - Other specified soft tissue disorders (3) Edema of leg Status: Chronic Current Visit: Yes Code(s): R60.0 - Localized edema (4) Diabetes mellitus Status: Chronic Current Visit: Yes Qualifiers: Diabetes mellitus type: type 2 Code(s): E11.9 - Type 2 diabetes mellitus without complications (5) Morbid obesity with BMI of 45.0-49.9, adult Status: Chronic Current Visit: No Code(s): E66.01 - Morbid (severe) obesity due to excess calories; Z68.42 - Body mass index (BMI) 45.0-49.9, adult (6) COPD (chronic obstructive pulmonary disease) Status: Chronic Current Visit: No Code(s): J44.9 - Chronic obstructive pulmonary disease, unspecified (7) Coronary artery arteriosclerosis Status: Chronic Current Visit: No Code(s): I25.10 - Atherosclerotic heart disease of [place] coronary artery without angina pectoris History of Present Illness Chief Complaint: Traumatic open wound of the left lower extremity History of Wound: This is a 57-year-old diabetic female who was in her normal state of health until approximately 2 months prior to presentation. At that time, she sustained trauma to the anterolateral aspect of the left calf, striking her leg against the bed frame. A wound resulted, which has failed to heal in normal fashion. She subsequently struck her leg against the bed frame a second time, again injuring the left lower extremity in the same location. She claims to have chronic swelling in the left lower extremity, that precedes her current injury. She sleeps in a recumbent position at night. 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 Past Medical History Past Medical History: Chronic Problems Traumatic open wound of lower leg (Chronic) Leg swelling (Chronic) Edema of leg (Chronic) Diabetes mellitus (Chronic) Morbid obesity with BMI of 45.0-49.9, adult (Chronic) COPD (chronic obstructive pulmonary disease) (Chronic) Coronary artery arteriosclerosis (Chronic) Surgical History: - - The patient has a history of coronary artery stent placement. She has undergone open reduction and internal fixation of a left tibia fracture. She underwent right meniscus repair in the past. She is a Ab0. Allergies/Adverse Reactions: Allergies No Known Allergies Allergy (Verified 09/03/13 11:12) Home Medications: Ambulatory Orders Medication Instructions Recorded Aspirin E.C. [Ecotrin] 81 mg PO DAILY@0800 09/03/13 Hydrocodone/Acetaminophen [Vicodin 1 - 2 tablet PO Q6H PRN PRN 09/03/13 5-300 mg Tablet] Lisinopril 10 mg PO DAILY 09/03/13 Metformin [Metformin HCl] 1,000 mg PO BID 09/03/13 Metoprolol Tartrate 50 mg PO DAILY 09/03/13 Dulaglutide [Trulicity] 0.75 mg SQ 01/02/18 Fluticasone/Vilanterol [Breo 1 each IH 01/02/18 Ellipta 200-25 Mcg INH] Insulin Glargine,Hum.rec.anlog 56 unit BID 01/02/18 [Lantus] Sitagliptin Phosphate [Januvia] 25 mg PO DAILY 01/02/18 Tiotropium [place] [Spiriva] 18 mcg IH 01/02/18 - Family History Paternal - - The patient's father at the age of 78 with history of chronic obstructive pulmonary disease. The patient's mother at the age of 84 with history of chronic obstructive pulmonary disease. Smoking Status: Former smoker Tobacco Use: Non-smoker Review of Systems Constitutional: Denies: Chills, Fever, Weight Change Eyes: Denies: Pain, Vision Change HEENT: Denies: Difficulty Hearing, Difficulty Swallowing, Sinus Congestion Cardiovascular: Denies: Chest Pain, Palpitations Respiratory: Denies: Cough, Shortness of Breath Gastrointestinal: Denies: Diarrhea, Nausea, Vomiting Genitourinary: Denies: Dysuria, Hematuria Endocrine: Denies: Heat/ Cold Intolerance, Polydipsia, Polyuria Hematologic/ Lymphatic: Denies: Easy Bruising, Easy Bleeding - Physical Exam Vital Signs Temp Pulse Resp BP Pulse Ox 96.5 F L 88 18 155/88 H 94 06/04/18 15:28 06/04/18 15:28 06/04/18 15:28 06/04/18 15:28 05/25/18 00:57 General: Alert, Oriented x3, Cooperative, No apparent distress, Well developed, Well nourished HEENT: Atraumatic, PERRLA, EOMI, Normocephalic Oral: Moist Mucosa Neck: No JVD Lungs: Normal air movement Abdomen: Non-Distended, Obese Extremities: No clubbing, No cyanosis, No edema, No Calf Tenderness, - - The wound on the left anterior tibial surface is healthy in appearance. The base of the wound is pink, with active granulation tissue. There is no sign of infection or cellulitis. Dimensions are documented elsewhere. There is a small amount of bioburden. Skin: No rashes Wound Measurements and Assessment WC - Nurse 1 - General Ulcer Measurement Start: 05/28/18 15:31 Freq: Status: Active Protocol: Activity Type Activity Date Activity User E-Sign Co-Sign Detail Recorded Client Recorded Date Recorded By Document 06/04/18 15:28 AN [id number] 06/04/18 15:46 AN 06/04/18 15:28 Wound Center Nurse 1 [Ulcer Assessment] #1 L Vaz -Current Size (cm) - Length 1.7 -Current Size (cm) - Width 1.0 -Current Size (cm) - Depth 0.1 -Total Square Cm 1.70 -Classification - Thickness Full Thickness without Exposed Support Structure -Exudate Amt Medium -Exudate Type Serosanguineous -Wound Margin Distinct, Outline Attached -Granulation Amt Large (67-100%) -Granulation Quality Red -Slough/Fibrin Yes -Necrosis Amt Small (1-33%) -Necrotic Tissue Type Adherent Slough -Structure Exposed None/Limited to Skin Breakdown -Texture (Ketty-wound Skin Appearance) Assessed -Moisture (Ketty-wound Skin Appearance Assessed ) -Color (Ketty-wound Skin Appearance) Assessed -Temperature ([place]etty-wound Skin No Abnormality Appearance) (Pt Warm) -Tenderness on Palpation (Ketty-wound No Skin Appearance) -Ulcer Cleansing Rinsed/ Irrigated with Saline -Foul Odor after Cleansing No -Anesthetic Used 4% Lidocaine Solution [Edema Assessment] -Left Calf (cm) 43 -Left Ankle (cm) 23.7 WC - Nurse 2 - General Ulcer CM Notes Start: 05/28/18 15:31 Freq: Status: Active Protocol: Activity Type Activity Date Activity User E-Sign Co-Sign Detail Recorded Client Recorded Date Recorded By Document 06/04/18 16:14 MW [id number] 06/04/18 16:19 MW 06/04/18 16:14 Wound Center Nurse 2 [Procedure/Treatment] #1 L Vaz -Time 16:17 -Correct Patient Yes -Correct Side, Site, Position Yes -Correct Procedure Yes -Procedure Performed Yes -Type of Procedure Debridement -Clinical Debridement Subcutaneous -Post Debridement Size (cm) - Length 1.8 -Post Debridement Size (cm) - Width 0.9 -Post Debridement Size (cm) - Depth 0.1 -Total Square Cm 1.62 -Wound/Ulcer Outcome Not Healed -Ulcer Cleansing Rinsed/ Irrigated with Saline -Foul Odor after Cleansing No -Bioengineered Tissue Yes -Type of bioengineered Tissue GRAFIX-Pime -Expiration Date 04/19/19 -Product Lot Number [id number] -Percent Used 100 -Saline Lot Number [id number] -Bleeding Controlled with Pressure -Offloading No -Treatment Response Procedure Tolerated Well [See Physician Procedure note for Specifics] Pain Scale: 0-10 Numeric [Pain] -Is Patient Pain Free? Yes Musculoskeletal: No Muscle Wasting Neurological: Cranial nerves II-XII grossly intact, Neuro grossly intact Psych/Mental Status: Normal Affect, Appropriate, Alert and oriented to time, place, person, mood and affect Debridement Note Post-Debridement Measurements/Treatment WC - Nurse 2 - General Ulcer CM Notes Start: 05/28/18 15:31 Freq: Status: Active Protocol: Activity Type Activity Date Activity User E-Sign Co-Sign Detail Recorded Client Recorded Date Recorded By Document 05/28/18 16:34 DV [id number] 05/28/18 16:42 DV Document 06/04/18 16:14 MW [id number] 06/04/18 16:19 MW 05/28/18 06/04/18 16:34 16:14 Wound Center Nurse 2 #1 L Vaz -Time 16:36 16:17 -Correct Patient Yes Yes -Correct Side, Site, Position Yes Yes -Correct Procedure Yes Yes -Procedure Performed Yes Yes -Type of Procedure Debridement Debridement -Clinical Debridement Subcutaneous Subcutaneous -Post Debridement Size (cm) - Length 2.0 1.8 -Post Debridement Size (cm) - Width 1.2 0.9 -Post Debridement Size (cm) - Depth 0.1 0.1 -Total Square Cm 2.40 1.62 -Wound/Ulcer Outcome Not Healed Not Healed -Ulcer Cleansing Rinsed/ Rinsed/ Irrigated with Irrigated with Saline Saline -Foul Odor after Cleansing No No -Bioengineered Tissue Yes Yes -Type of bioengineered Tissue GRAFIX-Pime GRAFIX-Pime -Expiration Date 03/10/19 04/19/19 -Product Lot Number [id number] -Percent Used 100 -Saline Lot Number [id number] -Lidocaine (ml) 4 -Bleeding Controlled with Pressure Pressure -Offloading No No -Treatment Response Procedure Procedure Tolerated Well Tolerated Well Pain Scale: 0-10 Numeric Is Patient Pain Free? Yes Yes Laterality: Left - Anterior tibial surface Type of Debridement: Excisional debridement Anesthesia Used: 5% Lidocaine Gel Depth: Down to and including healthy tissue, in the subcutaneous layer Percentage of wound debrided: 100 Instrument Used: 5mm curette Severity: Fat Layer Exposed Amount of bleeding with debridement: Mild Bleeding Controlled with: Compression and gauze Patient tolerated procedure well Following a routine excisional debridement, a Grafix PL Prime 1.5 cm x 2.0 cm allograft was applied. Upon removal from its sterile packaging, the allograft was placed over the wound surface. It was moistened with sterile saline. Wound Veil was used to cover the site, and Steri-Strips were used to anchor the graft and Wound Veil in place. A gauze dressing was then applied, and secured with Steri-Strips. The site was then reinforced once again with gauze, and the left lower extremity was placed within a Tubigrip for compression purposes. The patient tolerated the procedure well. Assessment/Plan Active Problems Traumatic open wound of lower leg (Chronic) Leg swelling (Chronic) Edema of leg (Chronic) Diabetes mellitus (Chronic) Assessment: This is a 57-year-old female who presented with a traumatic wound on the anterolateral aspect of the left calf. The injury occurred approximately 2 months prior to presentation, and has failed to heal appropriately. The patient presented with ralph, nonviable tissue within the wound itself. She is known to be a diabetic. Patient has undergone a battery of diagnostic tests, with results as follows: Glucose 150, sodium 140, potassium 4.8, chloride 103, BUN 15, creatinine 0.80, calcium 9.5, total protein 6.7, albumin 3.9, alkaline phosphatase 61, AST 20, ALT 35, hemoglobin A1c 8.3, white blood count 6.2, hemoglobin 14.2, hematocrit 41.1, platelets 253,000. The patient's prior cultures were positive for Klebsiella pneumonia, pseudomonas aeruginosa, and Streptococcus. She was placed on Levaquin 750 mg p.o. daily for a total of 10 days, and completed her course. Recently, another culture was positive for Pseudomonas. The patient has completed another prescription for Levaquin 750 mg p.o. daily for 10 days. A noninvasive lower extremity arterial study is normal, revealing triphasic waveforms at ankle level bilaterally, normal resting ankle?brachial indices bilaterally, and normal digital-brachial indices bilaterally. A venous duplex examination reveals incompetence of the left great saphenous vein below the knee. The left small saphenous vein appears competent. The patient has shown significant improvement in recent weeks, with progressive decrease in the size of her wound. Plan: An allograft was placed today, and will be left in place for 1 week, undisturbed. This is the second application of Grafix PL Prime. The patient is to continue elevating her legs as much as possible. Compression is to be continued as previously, using Tubigrip's. The patient will return in 1 week for reassessment. Another allograft is anticipated for her return appointment. A noninvasive lower extremity arterial study is normal. We will continue the use of TubiGrip compression to the left lower extremity to assist in the control of swelling and edema. She is to use a double layer Tubigrip on the left lower extremity. She has also been encouraged to elevate her lower extremities as much as possible, and to avoid prolonged idle sitting. The patient has been encouraged to assure adequate nutrition. Optimizing glycemic control has also been advised. The patient will return in 1 week for reassessment. Influenza vaccine was not administered today. The patient is not a smoker. Patient weighs 265 pounds. She stands 5 feet 4 inches tall. Her BMI is 45.5, which places her in a class III category. Weight loss has been recommended, and collaboration with the patient's primary care physician has been recommended.
[2018-06-12 11:30] VITALS: BP 150/80; PULSE 90; RESP 18; TEMP 36.6; BMI 46.1
--- NOTE | 2018-06-12 12:08 | PCM.WC.HP ---
(1) Traumatic open wound of lower leg Status: Chronic Current Visit: Yes Qualifiers: Encounter type: subsequent encounter Laterality: left Qualified Code(s): S81.802D - Unspecified open wound, left lower leg, subsequent encounter Code(s): S81.809A - Unspecified open wound, unspecified lower leg, initial encounter (2) Leg swelling Status: Chronic Current Visit: Yes Code(s): M79.89 - Other specified soft tissue disorders (3) Edema of leg Status: Chronic Current Visit: Yes Code(s): R60.0 - Localized edema (4) Diabetes mellitus Status: Chronic Current Visit: Yes Qualifiers: Diabetes mellitus type: type 2 Code(s): E11.9 - Type 2 diabetes mellitus without complications (5) Morbid obesity with BMI of 45.0-49.9, adult Status: Chronic Current Visit: No Code(s): E66.01 - Morbid (severe) obesity due to excess calories; Z68.42 - Body mass index (BMI) 45.0-49.9, adult (6) COPD (chronic obstructive pulmonary disease) Status: Chronic Current Visit: No Code(s): J44.9 - Chronic obstructive pulmonary disease, unspecified (7) Coronary artery arteriosclerosis Status: Chronic Current Visit: No Code(s): I25.10 - Atherosclerotic heart disease of havas[place]ai coronary artery without angina pectoris History of Present Illness Chief Complaint: Traumatic open wound of the left lower extremity History of Wound: This is a 57-year-old diabetic female who was in her normal state of health until approximately 2 months prior to presentation. At that time, she sustained trauma to the anterolateral aspect of the left calf, striking her leg against the bed frame. A wound resulted, which has failed to heal in normal fashion. She subsequently struck her leg against the bed frame a second time, again injuring the left lower extremity in the same location. She claims to have chronic swelling in the left lower extremity, that precedes her current injury. She sleeps in a recumbent position at night. 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 Past Medical History Past Medical History: Chronic Problems Traumatic open wound of lower leg (Chronic) Leg swelling (Chronic) Edema of leg (Chronic) Diabetes mellitus (Chronic) Morbid obesity with BMI of 45.0-49.9, adult (Chronic) COPD (chronic obstructive pulmonary disease) (Chronic) Coronary artery arteriosclerosis (Chronic) Surgical History: - - The patient has a history of coronary artery stent placement. She has undergone open reduction and internal fixation of a left tibia fracture. She underwent right meniscus repair in the past. She is a Ab0. Allergies/Adverse Reactions: Allergies No Known Allergies Allergy (Verified 09/03/13 11:12) Home Medications: Ambulatory Orders Medication Instructions Recorded Aspirin E.C. [Ecotrin] 81 mg PO DAILY@0800 09/03/13 Hydrocodone/Acetaminophen [Vicodin 1 - 2 tablet PO Q6H PRN PRN 09/03/13 5-300 mg Tablet] Lisinopril 10 mg PO DAILY 09/03/13 Metformin [Metformin HCl] 1,000 mg PO BID 09/03/13 Metoprolol Tartrate 50 mg PO DAILY 09/03/13 Dulaglutide [Trulicity] 0.75 mg SQ 01/02/18 Fluticasone/Vilanterol [Breo 1 each IH 01/02/18 Ellipta 200-25 Mcg INH] Insulin Glargine,Hum.rec.anlog 56 unit BID 01/02/18 [Lantus] Sitagliptin Phosphate [Januvia] 25 mg PO DAILY 01/02/18 Tiotropium [place] [Spiriva] 18 mcg IH 01/02/18 - Family History Paternal - - The patient's father at the age of 78 with history of chronic obstructive pulmonary disease. The patient's mother at the age of 84 with history of chronic obstructive pulmonary disease. Smoking Status: Former smoker Tobacco Use: Non-smoker Review of Systems Constitutional: Denies: Chills, Fever, Weight Change Eyes: Denies: Pain, Vision Change HEENT: Denies: Difficulty Hearing, Difficulty Swallowing, Sinus Congestion Cardiovascular: Denies: Chest Pain, Palpitations Respiratory: Denies: Cough, Shortness of Breath Gastrointestinal: Denies: Diarrhea, Nausea, Vomiting Genitourinary: Denies: Dysuria, Hematuria Endocrine: Denies: Heat/ Cold Intolerance, Polydipsia, Polyuria Hematologic/ Lymphatic: Denies: Easy Bruising, Easy Bleeding - Physical Exam Vital Signs Temp Pulse Resp BP Pulse Ox 97.9 F 90 18 150/80 H 94 06/12/18 11:30 06/12/18 11:30 06/12/18 11:30 06/12/18 11:30 05/25/18 00:57 General: Alert, Oriented x3, Cooperative, No apparent distress, Well developed, Well nourished HEENT: Atraumatic, PERRLA, EOMI, Normocephalic Oral: Moist Mucosa Neck: No JVD Lungs: Normal air movement Abdomen: Non-Distended Extremities: No clubbing, No cyanosis, No edema, No Calf Tenderness, - - There is no significant swelling or edema in the left lower extremity. The wound on the left lateral calf is significantly smaller in size. Dimensions are documented elsewhere. There is only a minimal amount of bioburden. The base of the wound is generally pink and healthy in appearance, and the wound is much more superficial than noted upon intake. In general, there has been significant improvement in recent weeks. There is no sign of infection or cellulitis. Skin: No rashes Wound Measurements and Assessment WC - Nurse 1 - General Ulcer Measurement Start: 05/28/18 15:31 Freq: Status: Active Protocol: Activity Type Activity Date Activity User E-Sign Co-Sign Detail Recorded Client Recorded Date Recorded By Document 06/12/18 11:30 DL [id number] 06/12/18 11:37 DL 06/12/18 11:30 Wound Center Nurse 1 [Ulcer Assessment] #1 L Vaz -Current Size (cm) - Length 0.5 -Current Size (cm) - Width 0.5 -Current Size (cm) - Depth 0.1 -Total Square Cm 0.25 -Photo Taken No -Exudate Amt Small -Exudate Type Serosanguineous -Wound Margin Distinct, Outline Attached -Granulation Amt Large (67-100%) -Granulation Quality Red -Necrosis Amt None Present (0 %) -Structure Exposed N/A -Texture (Ketty-wound Skin Appearance) Scarring -Moisture (Ketty-wound Skin Appearance No Abnormality ) -Color (Ketty-wound Skin Appearance) Hemosiderin Staining -Temperature (Ketty-wound Skin No Abnormality Appearance) (Pt Warm) -Ulcer Cleansing Wound Cleanser -Foul Odor after Cleansing No -Anesthetic Used 4% Lidocaine Solution [Edema Assessment] -Right Calf (cm) 41.2 -Right Ankle (cm) 23.2 Musculoskeletal: No Muscle Wasting Neurological: Cranial nerves II-XII grossly intact, Neuro grossly intact Psych/Mental Status: Normal Affect, Appropriate, Alert and oriented to time, place, person, mood and affect Debridement Note Post-Debridement Measurements/Treatment WC - Nurse 2 - General Ulcer CM Notes Start: 05/28/18 15:31 Freq: Status: Active Protocol: Activity Type Activity Date Activity User E-Sign Co-Sign Detail Recorded Client Recorded Date Recorded By Document 05/28/18 16:34 DV [id number] 05/28/18 16:42 DV Document 06/04/18 16:14 MW [id number] 06/04/18 16:19 MW 05/28/18 06/04/18 16:34 16:14 Wound Center Nurse 2 #1 L Vaz -Time 16:36 16:17 -Correct Patient Yes Yes -Correct Side, Site, Position Yes Yes -Correct Procedure Yes Yes -Procedure Performed Yes Yes -Type of Procedure Debridement Debridement -Clinical Debridement Subcutaneous Subcutaneous -Post Debridement Size (cm) - Length 2.0 1.8 -Post Debridement Size (cm) - Width 1.2 0.9 -Post Debridement Size (cm) - Depth 0.1 0.1 -Total Square Cm 2.40 1.62 -Wound/Ulcer Outcome Not Healed Not Healed -Ulcer Cleansing Rinsed/ Rinsed/ Irrigated with Irrigated with Saline Saline -Foul Odor after Cleansing No No -Bioengineered Tissue Yes Yes -Type of bioengineered Tissue GRAFIX-Pime GRAFIX-Pime -Expiration Date 03/10/19 04/19/19 -Product Lot Number [id number] -Percent Used 100 -Saline Lot Number [id number] -Lidocaine (ml) 4 -Bleeding Controlled with Pressure Pressure -Offloading No No -Treatment Response Procedure Procedure Tolerated Well Tolerated Well Pain Scale: 0-10 Numeric Is Patient Pain Free? Yes Yes Laterality: Left - Lateral calf Type of Debridement: Excisional debridement Anesthesia Used: 5% Lidocaine Gel Depth: Down to and including healthy tissue, in the subcutaneous layer Percentage of wound debrided: 100 Instrument Used: 5mm curette Severity: Fat Layer Exposed Amount of bleeding with debridement: Mild Bleeding Controlled with: Compression and gauze Patient tolerated procedure well Upon completion of a routine excisional debridement, a Grafix PL Prime allograft was applied. A 1.5 cm x 2.0 cm allograft was selected. Upon removal from its sterile packaging, was applied topically on the wound surface, and was moistened with sterile saline. Wound veil and gauze were then applied, and were then anchored in place with Steri-Strips. Site was then dressed with gauze. The patient tolerated the procedure well. Assessment/Plan Active Problems Traumatic open wound of lower leg (Chronic) Leg swelling (Chronic) Edema of leg (Chronic) Diabetes mellitus (Chronic) Assessment: This is a 57-year-old female who presented with a traumatic wound on the anterolateral aspect of the left calf. The injury occurred approximately 2 months prior to presentation, and has failed to heal appropriately. The patient presented with ralph, nonviable tissue within the wound itself. She is known to be a diabetic. Patient has undergone a battery of diagnostic tests, with results as follows: Glucose 150, sodium 140, potassium 4.8, chloride 103, BUN 15, creatinine 0.80, calcium 9.5, total protein 6.7, albumin 3.9, alkaline phosphatase 61, AST 20, ALT 35, hemoglobin A1c 8.3, white blood count 6.2, hemoglobin 14.2, hematocrit 41.1, platelets 253,000. The patient's prior cultures were positive for Klebsiella pneumonia, pseudomonas aeruginosa, and Streptococcus. She was placed on Levaquin 750 mg p.o. daily for a total of 10 days, and completed her course. Recently, another culture was positive for Pseudomonas. The patient has completed another prescription for Levaquin 750 mg p.o. daily for 10 days. A noninvasive lower extremity arterial study is normal, revealing triphasic waveforms at ankle level bilaterally, normal resting ankle?brachial indices bilaterally, and normal digital-brachial indices bilaterally. A venous duplex examination reveals incompetence of the left great saphenous vein below the knee. The left small saphenous vein appears competent. The patient has shown significant improvement in recent weeks, with progressive decrease in the size of her wound. Plan: An allograft was placed today, and will be left in place for 1 week, undisturbed. This is the third application of Grafix PL Prime. The patient is to continue elevating her legs as much as possible. Compression is to be continued as previously, using Tubigrip's. The patient will return in 1 week for reassessment. Another allograft is anticipated for her return appointment. A noninvasive lower extremity arterial study is normal. We will continue the use of TubiGrip compression to the left lower extremity to assist in the control of swelling and edema. She is to use a double layer Tubigrip on the left lower extremity. She has also been encouraged to elevate her lower extremities as much as possible, and to avoid prolonged idle sitting. The patient has been encouraged to assure adequate nutrition. Optimizing glycemic control has also been advised. The patient will return in 1 week for reassessment. Influenza vaccine was not administered today. The patient is not a smoker. Patient weighs 265 pounds. She stands 5 feet 4 inches tall. Her BMI is 45.5, which places her in a class III category. Weight loss has been recommended, and collaboration with the patient's primary care physician has been recommended.
[2018-06-19 11:25] VITALS: BP 155/86; PULSE 99; RESP 20; TEMP 36.5; BMI 46.1
--- NOTE | 2018-06-19 12:08 | PCM.WC.HP ---
(1) Traumatic open wound of lower leg Status: Chronic Current Visit: Yes Qualifiers: Encounter type: subsequent encounter Laterality: left Qualified Code(s): S81.802D - Unspecified open wound, left lower leg, subsequent encounter Code(s): S81.809A - Unspecified open wound, unspecified lower leg, initial encounter (2) Leg swelling Status: Chronic Current Visit: Yes Code(s): M79.89 - Other specified soft tissue disorders (3) Edema of leg Status: Chronic Current Visit: Yes Code(s): R60.0 - Localized edema (4) Diabetes mellitus Status: Chronic Current Visit: Yes Qualifiers: Diabetes mellitus type: type 2 Code(s): E11.9 - Type 2 diabetes mellitus without complications (5) Morbid obesity with BMI of 45.0-49.9, adult Status: Chronic Current Visit: No Code(s): E66.01 - Morbid (severe) obesity due to excess calories; Z68.42 - Body mass index (BMI) 45.0-49.9, adult (6) COPD (chronic obstructive pulmonary disease) Status: Chronic Current Visit: No Code(s): J44.9 - Chronic obstructive pulmonary disease, unspecified (7) Coronary artery arteriosclerosis Status: Chronic Current Visit: No Code(s): I25.10 - Atherosclerotic heart disease of [place] coronary artery without angina pectoris History of Present Illness Chief Complaint: Traumatic open wound of the left lower extremity History of Wound: This is a 57-year-old diabetic female who was in her normal state of health until approximately 2 months prior to presentation. At that time, she sustained trauma to the anterolateral aspect of the left calf, striking her leg against the bed frame. A wound resulted, which has failed to heal in normal fashion. She subsequently struck her leg against the bed frame a second time, again injuring the left lower extremity in the same location. She claims to have chronic swelling in the left lower extremity, that precedes her current injury. She sleeps in a recumbent position at night. 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 Past Medical History Past Medical History: Chronic Problems Traumatic open wound of lower leg (Chronic) Leg swelling (Chronic) Edema of leg (Chronic) Diabetes mellitus (Chronic) Morbid obesity with BMI of 45.0-49.9, adult (Chronic) COPD (chronic obstructive pulmonary disease) (Chronic) Coronary artery arteriosclerosis (Chronic) Surgical History: - - The patient has a history of coronary artery stent placement. She has undergone open reduction and internal fixation of a left tibia fracture. She underwent right meniscus repair in the past. She is a Ab0. Allergies/Adverse Reactions: Allergies No Known Allergies Allergy (Verified 09/03/13 11:12) Home Medications: Ambulatory Orders Medication Instructions Recorded Aspirin E.C. [Ecotrin] 81 mg PO DAILY@0800 09/03/13 Hydrocodone/Acetaminophen [Vicodin 1 - 2 tablet PO Q6H PRN PRN 09/03/13 5-300 mg Tablet] Lisinopril 10 mg PO DAILY 09/03/13 Metformin [Metformin HCl] 1,000 mg PO BID 09/03/13 Metoprolol Tartrate 50 mg PO DAILY 09/03/13 Dulaglutide [Trulicity] 0.75 mg SQ 01/02/18 Fluticasone/Vilanterol [Breo 1 each IH 01/02/18 Ellipta 200-25 Mcg INH] Insulin Glargine,Hum.rec.anlog 56 unit BID 01/02/18 [Lantus] Sitagliptin Phosphate [Januvia] 25 mg PO DAILY 01/02/18 Tiotropium [place] [Spiriva] 18 mcg IH 01/02/18 - Family History Paternal - - The patient's father at the age of 78 with history of chronic obstructive pulmonary disease. The patient's mother at the age of 84 with history of chronic obstructive pulmonary disease. Smoking Status: Former smoker Tobacco Use: Non-smoker Review of Systems Constitutional: Denies: Chills, Fever, Weight Change Eyes: Denies: Pain, Vision Change HEENT: Denies: Difficulty Hearing, Difficulty Swallowing, Sinus Congestion Cardiovascular: Denies: Chest Pain, Palpitations Respiratory: Denies: Cough, Shortness of Breath Gastrointestinal: Denies: Diarrhea, Nausea, Vomiting Genitourinary: Denies: Dysuria, Hematuria Endocrine: Denies: Heat/ Cold Intolerance, Polydipsia, Polyuria Hematologic/ Lymphatic: Denies: Easy Bruising, Easy Bleeding - Physical Exam Vital Signs Temp Pulse Resp BP Pulse Ox 97.7 F L 99 20 H 155/86 H 94 06/19/18 11:25 06/19/18 11:25 06/19/18 11:25 06/19/18 11:25 05/25/18 00:57 General: Alert, Oriented x3, Cooperative, No apparent distress, Well developed, Well nourished HEENT: Atraumatic, PERRLA, EOMI, Normocephalic Oral: Moist Mucosa Neck: No JVD Lungs: Normal air movement Abdomen: Non-Distended Extremities: No clubbing, No cyanosis, No edema, No Calf Tenderness, - - There is no significant swelling or edema in the left lower extremity. The traumatic wound on the left lateral calf is markedly improved. It is much smaller in size. There is minimal bioburden. There is no sign of infection or cellulitis. Dimensions are documented elsewhere. Skin: No rashes Wound Measurements and Assessment WC - Nurse 1 - General Ulcer Measurement Start: 05/28/18 15:31 Freq: Status: Active Protocol: Activity Type Activity Date Activity User E-Sign Co-Sign Detail Recorded Client Recorded Date Recorded By Document 06/19/18 11:25 [id number] 06/19/18 11:28 JOSE 06/19/18 11:25 Wound Center Nurse 1 [Ulcer Assessment] #1 L Vaz -Combined with other wound No -Current Size (cm) - Length 0.7 -Current Size (cm) - Width 1.1 -Current Size (cm) - Depth 0.1 -Total Square Cm 0.77 -Photo Taken No -Epithelialization Medium 34-66% -Tunneling No -Undermining/Tunneling No -Circular Undermining No -Exudate Amt Small -Exudate Type Serosanguineous -Wound Margin Flat & Intact -Granulation Amt Large (67-100%) -Granulation Quality Red -Slough/Fibrin Yes -Necrosis Amt Small (1-33%) -Necrotic Tissue Type Adherent Slough -Structure Exposed N/A -Texture (Ketty-wound Skin Appearance) Assessed -Moisture (Ketty-wound Skin Appearance Assessed ) Dry/Scaly -Color (Ketty-wound Skin Appearance) Assessed -Temperature ([place]et[place]-wound Skin No Abnormality Appearance) (Pt Warm) -Tenderness on Palpation ([place]etty-wound No Skin Appearance) -Ulcer Cleansing Wound Cleanser -Foul Odor after Cleansing No -Anesthetic Used 5% Lidocaine Gel [Edema Assessment] -Lower Limb Edema Present Yes -Left Calf (cm) 42.8 -Left Ankle (cm) 23.6 WC - Nurse 2 - General Ulcer CM Notes Start: 05/28/18 15:31 Freq: Status: Active Protocol: Activity Type Activity Date Activity User E-Sign Co-Sign Detail Recorded Client Recorded Date Recorded By Document 06/19/18 11:45 DV [id number] 06/19/18 11:53 DV 06/19/18 11:45 Wound Center Nurse 2 [Procedure/Treatment] #1 L Vaz -Time 11:45 -Correct Patient Yes -Correct Side, Site, Position Yes -Correct Procedure Yes -Procedure Performed Yes -Type of Procedure Debridement -Clinical Debridement Subcutaneous -Post Debridement Size (cm) - Length 0.7 -Post Debridement Size (cm) - Width 0.5 -Post Debridement Size (cm) - Depth 0.1 -Total Square Cm 0.35 -Wound/Ulcer Outcome Not Healed -Ulcer Cleansing Rinsed/ Irrigated with Saline -Foul Odor after Cleansing No -Bioengineered Tissue Yes -Type of bioengineered Tissue GRAFIX-Pime -Expiration Date 03/29/19 -Product Lot Number [id number] -Percent Used 100 -Saline Lot Number [id number] -Topical Lidocaine (%) 5 -Bleeding Controlled with Pressure -Offloading No -Treatment Response Procedure Tolerated Well [See Physician Procedure note for Specifics] Pain Scale: 0-10 Numeric [Pain] -Is Patient Pain Free? Yes Musculoskeletal: No Muscle Wasting Neurological: Cranial nerves II-XII grossly intact, Neuro grossly intact Psych/Mental Status: Normal Affect, Appropriate, Alert and oriented to time, place, person, mood and affect Debridement Note Post-Debridement Measurements/Treatment - Nurse 2 - General Ulcer CM Notes Start: 05/28/18 15:31 Freq: Status: Active Protocol: Activity Type Activity Date Activity User E-Sign Co-Sign Detail Recorded Client Recorded Date Recorded By Document 05/28/18 16:34 DV [id number] 05/28/18 16:42 DV Document 06/04/18 16:14 MW [id number] 06/04/18 16:19 MW Document 06/12/18 11:55 DV [id number] 06/12/18 12:16 DV Document 06/19/18 11:45 DV [id number] 06/19/18 11:53 DV 05/28/18 06/04/18 06/12/18 16:34 16:14 11:55 Wound Center Nurse 2 #1 L Vaz -Time 16:36 16:17 11:57 -Correct Patient Yes Yes Yes -Correct Side, Site, Position Yes Yes Yes -Correct Procedure Yes Yes Yes -Procedure Performed Yes Yes Yes -Type of Procedure Debridement Debridement Debridement -Clinical Debridement Subcutaneous Subcutaneous Subcutaneous -Post Debridement Size (cm) - Length 2.0 1.8 0.6 -Post Debridement Size (cm) - Width 1.2 0.9 0.6 -Post Debridement Size (cm) - Depth 0.1 0.1 0.1 -Total Square Cm 2.40 1.62 0.36 -Wound/Ulcer Outcome Not Healed Not Healed Not Healed -Ulcer Cleansing Rinsed/ Rinsed/ Rinsed/ Irrigated with Irrigated with Irrigated with Saline Saline Saline -Foul Odor after Cleansing No No No -Bioengineered Tissue Yes Yes Yes -Type of bioengineered Tissue GRAFIX-Pime GRAFIX-Pime GRAFIX-Pime -Expiration Date 03/10/19 04/19/19 04/12/19 -Product Lot Number [id number] -Percent Used 100 100 -Saline Lot Number [id number] -Topical Lidocaine (%) 5 -Lidocaine (ml) 4 -Bleeding Controlled with Pressure Pressure -Offloading No No Yes -Treatment Response Procedure Procedure Procedure Tolerated Well Tolerated Well Tolerated Well Pain Scale: 0-10 Numeric Is Patient Pain Free? Yes Yes Yes 06/19/18 11:45 Wound Center Nurse 2 #1 L Vaz -Time 11:45 -Correct Patient Yes -Correct Side, Site, Position Yes -Correct Procedure Yes -Procedure Performed Yes -Type of Procedure Debridement -Clinical Debridement Subcutaneous -Post Debridement Size (cm) - Length 0.7 -Post Debridement Size (cm) - Width 0.5 -Post Debridement Size (cm) - Depth 0.1 -Total Square Cm 0.35 -Wound/Ulcer Outcome Not Healed -Ulcer Cleansing Rinsed/ Irrigated with Saline -Foul Odor after Cleansing No -Bioengineered Tissue Yes -Type of bioengineered Tissue GRAFIX-Pime -Expiration Date 03/29/19 -Product Lot Number [id number] -Percent Used 100 -Saline Lot Number [id number] -Topical Lidocaine (%) 5 -Lidocaine (ml) -Bleeding Controlled with Pressure -Offloading No -Treatment Response Procedure Tolerated Well Pain Scale: 0-10 Numeric Is Patient Pain Free? Yes Laterality: Left - Lateral calf Type of Debridement: Excisional debridement Anesthesia Used: 5% Lidocaine Gel Depth: Down to and including healthy tissue, in the subcutaneous layer Percentage of wound debrided: 100 Instrument Used: 5mm curette Severity: Fat Layer Exposed Amount of bleeding with debridement: Mild Bleeding Controlled with: Compression and gauze Patient tolerated procedure well Following a routine excisional debridement of the left lateral calf wound, a Grafix PL Prime 16 mm allograft was selected for placement topically. Upon removal from its sterile packaging, it was placed topically on the left lateral calf wound. It was moistened with sterile saline. Wound veil and gauze was then applied. The entire site was then anchored securely using Steri-Strips. The procedure was well-tolerated. Assessment/Plan Active Problems Traumatic open wound of lower leg (Chronic) Leg swelling (Chronic) Edema of leg (Chronic) Diabetes mellitus (Chronic) Assessment: This is a 57-year-old female who presented with a traumatic wound on the anterolateral aspect of the left calf. The injury occurred approximately 2 months prior to presentation, and has failed to heal appropriately. The patient presented with ralph, nonviable tissue within the wound itself. She is known to be a diabetic. Patient has undergone a battery of diagnostic tests, with results as follows: Glucose 150, sodium 140, potassium 4.8, chloride 103, BUN 15, creatinine 0.80, calcium 9.5, total protein 6.7, albumin 3.9, alkaline phosphatase 61, AST 20, ALT 35, hemoglobin A1c 8.3, white blood count 6.2, hemoglobin 14.2, hematocrit 41.1, platelets 253,000. The patient's prior cultures were positive for Klebsiella pneumonia, pseudomonas aeruginosa, and Streptococcus. She was placed on Levaquin 750 mg p.o. daily for a total of 10 days, and completed her course. Recently, another culture was positive for Pseudomonas. The patient has completed another prescription for Levaquin 750 mg p.o. daily for 10 days. A noninvasive lower extremity arterial study is normal, revealing triphasic waveforms at ankle level bilaterally, normal resting ankle?brachial indices bilaterally, and normal digital-brachial indices bilaterally. A venous duplex examination reveals incompetence of the left great saphenous vein below the knee. The left small saphenous vein appears competent. The patient has shown significant improvement in recent weeks, with progressive decrease in the size of her wound. Plan: An allograft was placed today, and will be left in place for 1 week, undisturbed. This is the fourth application of Grafix PL Prime. The patient is to continue elevating her legs as much as possible. Compression is to be continued as previously, using double layer Tubigrip's. The patient will return in 1 week for reassessment. Another allograft is anticipated for her return appointment. A noninvasive lower extremity arterial study is normal. We will continue the use of TubiGrip compression to the left lower extremity to assist in the control of swelling and edema. She is to use a double layer Tubigrip on the left lower extremity. She has also been encouraged to elevate her lower extremities as much as possible, and to avoid prolonged idle sitting. The patient has been encouraged to assure adequate nutrition. Optimizing glycemic control has also been advised. The patient will return in 1 week for reassessment. Influenza vaccine was not administered today. The patient is not a smoker. Patient weighs 265 pounds. She stands 5 feet 4 inches tall. Her BMI is 45.5, which places her in a class III category. Weight loss has been recommended, and collaboration with the patient's primary care physician has been recommended.
--- NOTE | 2018-06-19 12:11 | HP.PCM_ITS ---
(1) Traumatic open wound of lower leg Status: Chronic Current Visit: Yes Qualifiers: Encounter type: subsequent encounter Laterality: left Qualified Code(s): S81.802D - Unspecified open wound, left lower leg, subsequent encounter Code(s): S81.809A - Unspecified open wound, unspecified lower leg, initial encounter (2) Leg swelling Status: Chronic Current Visit: Yes Code(s): M79.89 - Other specified soft tissue disorders (3) Edema of leg Status: Chronic Current Visit: Yes Code(s): R60.0 - Localized edema (4) Diabetes mellitus Status: Chronic Current Visit: Yes Qualifiers: Diabetes mellitus type: type 2 Code(s): E11.9 - Type 2 diabetes mellitus without complications (5) Morbid obesity with BMI of 45.0-49.9, adult Status: Chronic Current Visit: No Code(s): E66.01 - Morbid (severe) obesity due to excess calories; Z68.42 - Body mass index (BMI) 45.0-49.9, adult (6) COPD (chronic obstructive pulmonary disease) Status: Chronic Current Visit: No Code(s): J44.9 - Chronic obstructive pulmonary disease, unspecified (7) Coronary artery arteriosclerosis Status: Chronic Current Visit: No Code(s): I25.10 - Atherosclerotic heart disease of [place] coronary artery without angina pectoris History of Present Illness Chief Complaint: Traumatic open wound of the left lower extremity History of Wound: This is a 57-year-old diabetic female who was in her normal state of health until approximately 2 months prior to presentation. At that time, she sustained trauma to the anterolateral aspect of the left calf, striking her leg against the bed frame. A wound resulted, which has failed to heal in normal fashion. She subsequently struck her leg against the bed frame a second time, again injuring the left lower extremity in the same location. She claims to have chronic swelling in the left lower extremity, that precedes her current injury. She sleeps in a recumbent position at night. 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 Past Medical History Past Medical History: Chronic Problems Traumatic open wound of lower leg (Chronic) Leg swelling (Chronic) Edema of leg (Chronic) Diabetes mellitus (Chronic) Morbid obesity with BMI of 45.0-49.9, adult (Chronic) COPD (chronic obstructive pulmonary disease) (Chronic) Coronary artery arteriosclerosis (Chronic) Surgical History: - - The patient has a history of coronary artery stent placement. She has undergone open reduction and internal fixation of a left tibia fracture. She underwent right meniscus repair in the past. She is a Ab0. Allergies/Adverse Reactions: Allergies No Known Allergies Allergy (Verified 09/03/13 11:12) Home Medications: Ambulatory Orders Medication Instructions Recorded Aspirin E.C. [Ecotrin] 81 mg PO DAILY@0800 09/03/13 Hydrocodone/Acetaminophen [Vicodin 1 - 2 tablet PO Q6H PRN PRN 09/03/13 5-300 mg Tablet] Lisinopril 10 mg PO DAILY 09/03/13 Metformin [Metformin HCl] 1,000 mg PO BID 09/03/13 Metoprolol Tartrate 50 mg PO DAILY 09/03/13 Dulaglutide [Trulicity] 0.75 mg SQ 01/02/18 Fluticasone/Vilanterol [Breo 1 each IH 01/02/18 Ellipta 200-25 Mcg INH] Insulin Glargine,Hum.rec.anlog 56 unit BID 01/02/18 [Lantus] Sitagliptin Phosphate [Januvia] 25 mg PO DAILY 01/02/18 Tiotropium [place] [Spiriva] 18 mcg IH 01/02/18 - Family History Paternal - - The patient's father at the age of 78 with history of chronic obstructive pulmonary disease. The patient's mother at the age of 84 with history of chronic obstructive pulmonary disease. Smoking Status: Former smoker Tobacco Use: Non-smoker Review of Systems Constitutional: Denies: Chills, Fever, Weight Change Eyes: Denies: Pain, Vision Change HEENT: Denies: Difficulty Hearing, Difficulty Swallowing, Sinus Congestion Cardiovascular: Denies: Chest Pain, Palpitations Respiratory: Denies: Cough, Shortness of Breath Gastrointestinal: Denies: Diarrhea, Nausea, Vomiting Genitourinary: Denies: Dysuria, Hematuria Endocrine: Denies: Heat/ Cold Intolerance, Polydipsia, Polyuria Hematologic/ Lymphatic: Denies: Easy Bruising, Easy Bleeding - Physical Exam Vital Signs Temp Pulse Resp BP Pulse Ox 97.7 F L 99 20 H 155/86 H 94 06/19/18 11:25 06/19/18 11:25 06/19/18 11:25 06/19/18 11:25 05/25/18 00:57 General: Alert, Oriented x3, Cooperative, No apparent distress, Well developed, Well nourished HEENT: Atraumatic, PERRLA, EOMI, Normocephalic Oral: Moist Mucosa Neck: No JVD Lungs: Normal air movement Abdomen: Non-Distended Extremities: No clubbing, No cyanosis, No edema, No Calf Tenderness, - - There is no significant swelling or edema in the left lower extremity. The traumatic wound on the left lateral calf is markedly improved. It is much smaller in size. There is minimal bioburden. There is no sign of infection or cellulitis. Dimensions are documented elsewhere. Skin: No rashes Wound Measurements and Assessment WC - Nurse 1 - General Ulcer Measurement Start: 05/28/18 15:31 Freq: Status: Active Protocol: Activity Type Activity Date Activity User E-Sign Co-Sign Detail Recorded Client Recorded Date Recorded By Document 06/19/18 11:25 [id number] 06/19/18 11:28 JOSE 06/19/18 11:25 Wound Center Nurse 1 [Ulcer Assessment] #1 L Vaz -Combined with other wound No -Current Size (cm) - Length 0.7 -Current Size (cm) - Width 1.1 -Current Size (cm) - Depth 0.1 -Total Square Cm 0.77 -Photo Taken No -Epithelialization Medium 34-66% -Tunneling No -Undermining/Tunneling No -Circular Undermining No -Exudate Amt Small -Exudate Type Serosanguineous -Wound Margin Flat & Intact -Granulation Amt Large (67-100%) -Granulation Quality Red -Slough/Fibrin Yes -Necrosis Amt Small (1-33%) -Necrotic Tissue Type Adherent Slough -Structure Exposed N/A -Texture (Ketty-wound Skin Appearance) Assessed -Moisture (Ketty-wound Skin Appearance Assessed ) Dry/Scaly -Color (Ketty-wound Skin Appearance) Assessed -Temperature (Ketty-wound Skin No Abnormality Appearance) (Pt Warm) -Tenderness on Palpation (Ketty-wound No Skin Appearance) -Ulcer Cleansing Wound Cleanser -Foul Odor after Cleansing No -Anesthetic Used 5% Lidocaine Gel [Edema Assessment] -Lower Limb Edema Present Yes -Left Calf (cm) 42.8 -Left Ankle (cm) 23.6 WC - Nurse 2 - General Ulcer CM Notes Start: 05/28/18 15:31 Freq: Status: Active Protocol: Activity Type Activity Date Activity User E-Sign Co-Sign Detail Recorded Client Recorded Date Recorded By Document 06/19/18 11:45 DV [id number] 06/19/18 11:53 DV 06/19/18 11:45 Wound Center Nurse 2 [Procedure/Treatment] #1 L Vaz -Time 11:45 -Correct Patient Yes -Correct Side, Site, Position Yes -Correct Procedure Yes -Procedure Performed Yes -Type of Procedure Debridement -Clinical Debridement Subcutaneous -Post Debridement Size (cm) - Length 0.7 -Post Debridement Size (cm) - Width 0.5 -Post Debridement Size (cm) - Depth 0.1 -Total Square Cm 0.35 -Wound/Ulcer Outcome Not Healed -Ulcer Cleansing Rinsed/ Irrigated with Saline -Foul Odor after Cleansing No -Bioengineered Tissue Yes -Type of bioengineered Tissue GRAFIX-Pime -Expiration Date 03/29/19 -Product Lot Number [id number] -Percent Used 100 -Saline Lot Number [id number] -Topical Lidocaine (%) 5 -Bleeding Controlled with Pressure -Offloading No -Treatment Response Procedure Tolerated Well [See Physician Procedure note for Specifics] Pain Scale: 0-10 Numeric [Pain] -Is Patient Pain Free? Yes Musculoskeletal: No Muscle Wasting Neurological: Cranial nerves II-XII grossly intact, Neuro grossly intact Psych/Mental Status: Normal Affect, Appropriate, Alert and oriented to time, place, person, mood and affect Debridement Note Post-Debridement Measurements/Treatment - Nurse 2 - General Ulcer CM Notes Start: 05/28/18 15:31 Freq: Status: Active Protocol: Activity Type Activity Date Activity User E-Sign Co-Sign Detail Recorded Client Recorded Date Recorded By Document 05/28/18 16:34 DV [id number] 05/28/18 16:42 DV Document 06/04/18 16:14 MW [id number] 06/04/18 16:19 MW Document 06/12/18 11:55 DV [id number] 06/12/18 12:16 DV Document 06/19/18 11:45 DV [id number] 06/19/18 11:53 DV 05/28/18 06/04/18 06/12/18 16:34 16:14 11:55 Wound Center Nurse 2 #1 L Vaz -Time 16:36 16:17 11:57 -Correct Patient Yes Yes Yes -Correct Side, Site, Position Yes Yes Yes -Correct Procedure Yes Yes Yes -Procedure Performed Yes Yes Yes -Type of Procedure Debridement Debridement Debridement -Clinical Debridement Subcutaneous Subcutaneous Subcutaneous -Post Debridement Size (cm) - Length 2.0 1.8 0.6 -Post Debridement Size (cm) - Width 1.2 0.9 0.6 -Post Debridement Size (cm) - Depth 0.1 0.1 0.1 -Total Square Cm 2.40 1.62 0.36 -Wound/Ulcer Outcome Not Healed Not Healed Not Healed -Ulcer Cleansing Rinsed/ Rinsed/ Rinsed/ Irrigated with Irrigated with Irrigated with Saline Saline Saline -Foul Odor after Cleansing No No No -Bioengineered Tissue Yes Yes Yes -Type of bioengineered Tissue GRAFIX-Pime GRAFIX-Pime GRAFIX-Pime -Expiration Date 03/10/19 04/19/19 04/12/19 -Product Lot Number [id number] -Percent Used 100 100 -Saline Lot Number [id number] -Topical Lidocaine (%) 5 -Lidocaine (ml) 4 -Bleeding Controlled with Pressure Pressure -Offloading No No Yes -Treatment Response Procedure Procedure Procedure Tolerated Well Tolerated Well Tolerated Well Pain Scale: 0-10 Numeric Is Patient Pain Free? Yes Yes Yes 06/19/18 11:45 Wound Center Nurse 2 #1 L Vaz -Time 11:45 -Correct Patient Yes -Correct Side, Site, Position Yes -Correct Procedure Yes -Procedure Performed Yes -Type of Procedure Debridement -Clinical Debridement Subcutaneous -Post Debridement Size (cm) - Length 0.7 -Post Debridement Size (cm) - Width 0.5 -Post Debridement Size (cm) - Depth 0.1 -Total Square Cm 0.35 -Wound/Ulcer Outcome Not Healed -Ulcer Cleansing Rinsed/ Irrigated with Saline -Foul Odor after Cleansing No -Bioengineered Tissue Yes -Type of bioengineered Tissue GRAFIX-Pime -Expiration Date 03/29/19 -Product Lot Number [id number] -Percent Used 100 -Saline Lot Number [id number] -Topical Lidocaine (%) 5 -Lidocaine (ml) -Bleeding Controlled with Pressure -Offloading No -Treatment Response Procedure Tolerated Well Pain Scale: 0-10 Numeric Is Patient Pain Free? Yes Laterality: Left - Lateral calf Type of Debridement: Excisional debridement Anesthesia Used: 5% Lidocaine Gel Depth: Down to and including healthy tissue, in the subcutaneous layer Percentage of wound debrided: 100 Instrument Used: 5mm curette Severity: Fat Layer Exposed Amount of bleeding with debridement: Mild Bleeding Controlled with: Compression and gauze Patient tolerated procedure well Following a routine excisional debridement of the left lateral calf wound, a Grafix PL Prime 16 mm allograft was selected for placement topically. Upon removal from its sterile packaging, it was placed topically on the left lateral calf wound. It was moistened with sterile saline. Wound veil and gauze was then applied. The entire site was then anchored securely using Steri-Strips. The procedure was well-tolerated. Assessment/Plan Active Problems Traumatic open wound of lower leg (Chronic) Leg swelling (Chronic) Edema of leg (Chronic) Diabetes mellitus (Chronic) Assessment: This is a 57-year-old female who presented with a traumatic wound on the anterolateral aspect of the left calf. The injury occurred approximately 2 months prior to presentation, and has failed to heal appropriately. The patient presented with ralph, nonviable tissue within the wound itself. She is known to be a diabetic. Patient has undergone a battery of diagnostic tests, with results as follows: Glucose 150, sodium 140, potassium 4.8, chloride 103, BUN 15, creatinine 0.80, calcium 9.5, total protein 6.7, albumin 3.9, alkaline phosphatase 61, AST 20, ALT 35, hemoglobin A1c 8.3, white blood count 6.2, hemoglobin 14.2, hematocrit 41.1, platelets 253,000. The patient's prior cultures were positive for Klebsiella pneumonia, pseudomonas aeruginosa, and Streptococcus. She was placed on Levaquin 750 mg p.o. daily for a total of 10 days, and completed her course. Recently, another culture was positive for Pseudomonas. The patient has completed another prescription for Levaquin 750 mg p.o. daily for 10 days. A noninvasive lower extremity arterial study is normal, revealing triphasic waveforms at ankle level bilaterally, normal resting ankle?brachial indices bilaterally, and normal digital-brachial indices bilaterally. A venous duplex examination reveals incompetence of the left great saphenous vein below the knee. The left small saphenous vein appears competent. The patient has shown significant improvement in recent weeks, with progressive decrease in the size of her wound. Plan: An allograft was placed today, and will be left in place for 1 week, undisturbed. This is the fourth application of Grafix PL Prime. The patient is to continue elevating her legs as much as possible. Compression is to be co ntinued as previously, using double layer Tubigrip's. The patient will return in 1 week for reassessment. Another allograft is anticipated for her return appointment. A noninvasive lower extremity arterial study is normal. We will continue the use of TubiGrip compression to the left lower extremity to assist in the control of swelling and edema. She is to use a double layer Tubigrip on the left lower extremity. She has also been encouraged to elevate her lower extremities as much as possible, and to avoid prolonged idle sitting. The patient has been encouraged to assure adequate nutrition. Optimizing glycemic control has also been advised. The patient will return in 1 week for reassessment. Influenza vaccine was not administered today. The patient is not a smoker. Patient weighs 265 pounds. She stands 5 feet 4 inches tall. Her BMI is 45.5, which places her in a class III category. Weight loss has been recommended, and collaboration with the patient's primary care physician has been recommended.
== END 2018-06-21 23:59 ==
LOC: WC 11:30
PROVIDERS: PCP Nurse Practitioner Primary Care; Referring Provider Surgery; Visit Provider Surgery
DX: S81.832A Puncture wound without foreign body, left lower leg, initial encounter (principal); W22.03XA Walked into furniture, initial encounter; I25.10 Atherosclerotic heart disease of native coronary artery without angina pectoris; M79.89 Other specified soft tissue disorders; E11.9 Type 2 diabetes mellitus without complications; J44.9 Chronic obstructive pulmonary disease, unspecified; E66.01 Morbid (severe) obesity due to excess calories; Z68.42 Body mass index [BMI] 45.0-49.9, adult; Z71.3 Dietary counseling and surveillance; R60.0 Localized edema; Z95.5 Presence of coronary angioplasty implant and graft; Z79.82 Long term (current) use of aspirin; Z79.4 Long term (current) use of insulin; Z79.899 Other long term (current) drug therapy; Z87.891 Personal history of nicotine dependence
CPT/HCPCS: 15271; Q4133

== ENCOUNTER 2018-07-17 08:45 | Outpatient (RCR) | payer OTHER, SELFPAY ==
[2018-06-22 00:47] VITALS: BP 155/86; PULSE 99; RESP 20; TEMP 36.5; O2SAT 94
[2018-06-25 15:31] VITALS: BP 154/82; PULSE 113; RESP 20; TEMP 36.8; BMI 46.1
--- NOTE | 2018-06-25 16:05 | PCM.WC.HP ---
(1) Traumatic open wound of lower leg Status: Chronic Current Visit: Yes Qualifiers: Encounter type: subsequent encounter Laterality: left Qualified Code(s): S81.802D - Unspecified open wound, left lower leg, subsequent encounter Code(s): S81.809A - Unspecified open wound, unspecified lower leg, initial encounter (2) Leg swelling Status: Chronic Current Visit: Yes Code(s): M79.89 - Other specified soft tissue disorders (3) Edema of leg Status: Chronic Current Visit: Yes Code(s): R60.0 - Localized edema (4) Diabetes mellitus Status: Chronic Current Visit: No Code(s): E11.9 - Type 2 diabetes mellitus without complications (5) Morbid obesity with BMI of 45.0-49.9, adult Status: Chronic Current Visit: Yes Code(s): E66.01 - Morbid (severe) obesity due to excess calories; Z68.42 - Body mass index (BMI) 45.0-49.9, adult (6) COPD (chronic obstructive pulmonary disease) Status: Chronic Current Visit: No Code(s): J44.9 - Chronic obstructive pulmonary disease, unspecified (7) Coronary artery arteriosclerosis Status: Chronic Current Visit: No Code(s): I25.10 - Atherosclerotic heart disease of [place] coronary artery without angina pectoris History of Present Illness Chief Complaint: Traumatic open wound of the left lower extremity History of Wound: This is a 57-year-old diabetic female who was in her normal state of health until approximately 2 months prior to presentation. At that time, she sustained trauma to the anterolateral aspect of the left calf, striking her leg against the bed frame. A wound resulted, which has failed to heal in normal fashion. She subsequently struck her leg against the bed frame a second time, again injuring the left lower extremity in the same location. She claims to have chronic swelling in the left lower extremity, that precedes her current injury. She sleeps in a recumbent position at night. 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 Past Medical History Past Medical History: Chronic Problems Traumatic open wound of lower leg (Chronic) Leg swelling (Chronic) Edema of leg (Chronic) Diabetes mellitus (Chronic) Morbid obesity with BMI of 45.0-49.9, adult (Chronic) COPD (chronic obstructive pulmonary disease) (Chronic) Coronary artery arteriosclerosis (Chronic) Surgical History: - - The patient has a history of coronary artery stent placement. She has undergone open reduction and internal fixation of a left tibia fracture. She underwent right meniscus repair in the past. She is a Ab0. Allergies/Adverse Reactions: Allergies No Known Allergies Allergy (Verified 09/03/13 11:12) Home Medications: Ambulatory Orders Medication Instructions Recorded Aspirin E.C. [Ecotrin] 81 mg PO DAILY@0800 09/03/13 Hydrocodone/Acetaminophen [Vicodin 1 - 2 tablet PO Q6H PRN PRN 09/03/13 5-300 mg Tablet] Lisinopril 10 mg PO DAILY 09/03/13 Metformin [Metformin HCl] 1,000 mg PO BID 09/03/13 Metoprolol Tartrate 50 mg PO DAILY 09/03/13 Dulaglutide [Trulicity] 0.75 mg SQ 01/02/18 Fluticasone/Vilanterol [Breo 1 each IH 01/02/18 Ellipta 200-25 Mcg INH] Insulin Glargine,Hum.rec.anlog 56 unit BID 01/02/18 [Lantus] Sitagliptin Phosphate [Januvia] 25 mg PO DAILY 01/02/18 Tiotropium [place] [Spiriva] 18 mcg IH 01/02/18 - Family History Paternal - - The patient's father at the age of 78 with history of chronic obstructive pulmonary disease. The patient's mother at the age of 84 with history of chronic obstructive pulmonary disease. Smoking Status: Former smoker Tobacco Use: Non-smoker Review of Systems Constitutional: Denies: Chills, Fever, Weight Change Eyes: Denies: Pain, Vision Change HEENT: Denies: Difficulty Hearing, Difficulty Swallowing, Sinus Congestion Cardiovascular: Denies: Chest Pain, Palpitations Respiratory: Denies: Cough, Shortness of Breath Gastrointestinal: Denies: Diarrhea, Nausea, Vomiting Genitourinary: Denies: Dysuria, Hematuria Endocrine: Denies: Heat/ Cold Intolerance, Polydipsia, Polyuria Hematologic/ Lymphatic: Denies: Easy Bruising, Easy Bleeding - Physical Exam Vital Signs Temp Pulse Resp BP Pulse Ox 98.2 F 113 H 20 H 154/82 H 94 06/25/18 15:31 06/25/18 15:31 06/25/18 15:31 06/25/18 15:31 06/22/18 00:47 General: Alert, Oriented x3, Cooperative, No apparent distress, Well developed, Well nourished HEENT: Atraumatic, PERRLA, EOMI, Normocephalic Oral: Moist Mucosa Neck: No JVD Lungs: Normal air movement Abdomen: Non-Distended, Obese Extremities: No clubbing, No cyanosis, No edema, No Calf Tenderness, - - Swelling and edema in the left lower extremity appear to be well controlled. It is minimal. The traumatic wound on the left lateral calf is now nearly completely healed. It is quite small in size. It is superficial. There is minimal bioburden. Dimensions are documented elsewhere. There is no sign of infection or cellulitis. Skin: No rashes Wound Measurements and Assessment WC - Nurse 1 - General Ulcer Measurement Start: 06/25/18 15:30 Freq: Status: Active Protocol: Activity Type Activity Date Activity User E-Sign Co-Sign Detail Recorded Client Recorded Date Recorded By Document 06/25/18 15:31 DL [id number] 06/25/18 15:39 DL 06/25/18 15:31 Wound Center Nurse 1 [Ulcer Assessment] #1 L Vaz -Current Size (cm) - Length 0.2 -Current Size (cm) - Width 0.2 -Current Size (cm) - Depth 0.1 -Total Square Cm 0.04 -Photo Taken No -Exudate Amt None Present -Wound Margin Flat & Intact -Granulation Amt Large (67-100%) -Granulation Quality [place] -Necrosis Amt None Present (0 %) -Structure Exposed N/A -Texture (Ketty-wound Skin Appearance) Scarring -Moisture (Ketty-wound Skin Appearance No Abnormality ) -Color (Ketty-wound Skin Appearance) No Abnormality -Temperature ([place]etty-wound Skin No Abnormality Appearance) (Pt Warm) -Tenderness on Palpation (Ketty-wound No Skin Appearance) -Ulcer Cleansing Rinsed/ Irrigated with Saline -Foul Odor after Cleansing No -Anesthetic Used 4% Lidocaine Solution [Edema Assessment] -Left Calf (cm) 41.5 -Left Ankle (cm) 23 WC - Nurse 2 - General Ulcer CM Notes Start: 06/25/18 15:30 Freq: Status: Active Protocol: Activity Type Activity Date Activity User E-Sign Co-Sign Detail Recorded Client Recorded Date Recorded By Document 06/25/18 16:02 DV [id number] 06/25/18 16:05 DV 06/25/18 16:02 Wound Center Nurse 2 [Procedure/Treatment] #1 L Vaz -Time 16:02 -Correct Patient Yes -Correct Side, Site, Position Yes -Correct Procedure Yes -Procedure Performed Yes -Type of Procedure Debridement -Clinical Debridement Subcutaneous -Post Debridement Size (cm) - Length 0.5 -Post Debridement Size (cm) - Width 0.5 -Post Debridement Size (cm) - Depth 0.1 -Total Square Cm 0.25 -Wound/Ulcer Outcome Not Healed -Ulcer Cleansing Rinsed/ Irrigated with Saline -Foul Odor after Cleansing No -Bioengineered Tissue Yes -Type of bioengineered Tissue GRAFIX-Pime -Expiration Date 04/14/19 -Product Lot Number [id number] -Percent Used 100 -Saline Lot Number [id number] -Topical Lidocaine (%) 5 -Bleeding Controlled with Pressure -Offloading No -Treatment Response Procedure Tolerated Well [See Physician Procedure note for Specifics] Pain Scale: 0-10 Numeric [Pain] -Is Patient Pain Free? Yes Musculoskeletal: No Muscle Wasting Neurological: Cranial nerves II-XII grossly intact, Neuro grossly intact Psych/Mental Status: Normal Affect, Appropriate, Alert and oriented to time, place, person, mood and affect Debridement Note Post-Debridement Measurements/Treatment WC - Nurse 2 - General Ulcer CM Notes Start: 06/25/18 15:30 Freq: Status: Active Protocol: Activity Type Activity Date Activity User E-Sign Co-Sign Detail Recorded Client Recorded Date Recorded By Document 06/25/18 16:02 DV [id number] 06/25/18 16:05 DV 06/25/18 16:02 Wound Center Nurse 2 #1 L Vaz -Time 16:02 -Correct Patient Yes -Correct Side, Site, Position Yes -Correct Procedure Yes -Procedure Performed Yes -Type of Procedure Debridement -Clinical Debridement Subcutaneous -Post Debridement Size (cm) - Length 0.5 -Post Debridement Size (cm) - Width 0.5 -Post Debridement Size (cm) - Depth 0.1 -Total Square Cm 0.25 -Wound/Ulcer Outcome Not Healed -Ulcer Cleansing Rinsed/ Irrigated with Saline -Foul Odor after Cleansing No -Bioengineered Tissue Yes -Type of bioengineered Tissue GRAFIX-Pime -Expiration Date 04/14/19 -Product Lot Number [id number] -Percent Used 100 -Saline Lot Number [id number] -Topical Lidocaine (%) 5 -Bleeding Controlled with Pressure -Offloading No -Treatment Response Procedure Tolerated Well Pain Scale: 0-10 Numeric Is Patient Pain Free? Yes Laterality: Left - Lateral calf Type of Debridement: Excisional debridement Anesthesia Used: 5% Lidocaine Gel Depth: Down to and including healthy tissue, in the subcutaneous layer Percentage of wound debrided: 100 Instrument Used: 3mm curette Severity: Fat Layer Exposed Amount of bleeding with debridement: Mild Bleeding Controlled with: Compression and gauze Patient tolerated procedure well Following a routine excisional debridement, which was well tolerated, a Grafix PL Prime allograft was applied. A 16 mm disc allograft was selected. Upon removal from its sterile packaging, it was placed topically on the wound surface. It was moistened with sterile saline. Wound veil and gauze were then placed, and the site was anchored securely using Steri-Strips. The patient tolerated the procedure well. Assessment/Plan Active Problems Traumatic open wound of lower leg (Chronic) Leg swelling (Chronic) Edema of leg (Chronic) Morbid obesity with BMI of 45.0-49.9, adult (Chronic) Assessment: This is a 57-year-old female who presented with a traumatic wound on the anterolateral aspect of the left calf. The injury occurred approximately 2 months prior to presentation, and has failed to heal appropriately. The patient presented with ralph, nonviable tissue within the wound itself. She is known to be a diabetic. Patient has undergone a battery of diagnostic tests, with results as follows: Glucose 150, sodium 140, potassium 4.8, chloride 103, BUN 15, creatinine 0.80, calcium 9.5, total protein 6.7, albumin 3.9, alkaline phosphatase 61, AST 20, ALT 35, hemoglobin A1c 8.3, white blood count 6.2, hemoglobin 14.2, hematocrit 41.1, platelets 253,000. The patient's prior cultures were positive for Klebsiella pneumonia, pseudomonas aeruginosa, and Streptococcus. She was placed on Levaquin 750 mg p.o. daily for a total of 10 days, and completed her course. Recently, another culture was positive for Pseudomonas. The patient has completed another prescription for Levaquin 750 mg p.o. daily for 10 days. A noninvasive lower extremity arterial study is normal, revealing triphasic waveforms at ankle level bilaterally, normal resting ankle?brachial indices bilaterally, and normal digital-brachial indices bilaterally. A venous duplex examination reveals incompetence of the left great saphenous vein below the knee. The left small saphenous vein appears competent. The patient has shown significant improvement in recent weeks, with progressive decrease in the size of her wound. Plan: An allograft was placed today, and will be left in place for 1 week, undisturbed. This is the fifth application of Grafix PL Prime. The patient is to continue elevating her legs as much as possible. Compression is to be continued as previously, using double layer Tubigrip's. The patient will return in 1 week for reassessment. Another allograft is anticipated for her return appointment. However, it is possible that the wound may be completely healed by the time of her next follow-up visit. A noninvasive lower extremity arterial study is normal. We will continue the use of TubiGrip compression to the left lower extremity to assist in the control of swelling and edema. She is to use a double layer Tubigrip on the left lower extremity. She has also been encouraged to elevate her lower extremities as much as possible, and to avoid prolonged idle sitting. The patient has been encouraged to assure adequate nutrition. Optimizing glycemic control has also been advised. The patient will return in 1 week for reassessment. Influenza vaccine was not administered today. The patient is not a smoker. Patient weighs 265 pounds. She stands 5 feet 4 inches tall. Her BMI is 45.5, which places her in a class III category. Weight loss has been recommended, and collaboration with the patient's primary care physician has been recommended.
--- NOTE | 2018-06-25 16:09 | HP.PCM_ITS ---
(1) Traumatic open wound of lower leg Status: Chronic Current Visit: Yes Qualifiers: Encounter type: subsequent encounter Laterality: left Qualified Code(s): S81.802D - Unspecified open wound, left lower leg, subsequent encounter Code(s): S81.809A - Unspecified open wound, unspecified lower leg, initial encounter (2) Leg swelling Status: Chronic Current Visit: Yes Code(s): M79.89 - Other specified soft tissue disorders (3) Edema of leg Status: Chronic Current Visit: Yes Code(s): R60.0 - Localized edema (4) Diabetes mellitus Status: Chronic Current Visit: No Code(s): E11.9 - Type 2 diabetes mellitus without complications (5) Morbid obesity with BMI of 45.0-49.9, adult Status: Chronic Current Visit: Yes Code(s): E66.01 - Morbid (severe) obesity due to excess calories; Z68.42 - Body mass index (BMI) 45.0-49.9, adult (6) COPD (chronic obstructive pulmonary disease) Status: Chronic Current Visit: No Code(s): J44.9 - Chronic obstructive pulmonary disease, unspecified (7) Coronary artery arteriosclerosis Status: Chronic Current Visit: No Code(s): I25.10 - Atherosclerotic heart disease of [place] coronary artery without angina pectoris History of Present Illness Chief Complaint: Traumatic open wound of the left lower extremity History of Wound: This is a 57-year-old diabetic female who was in her normal state of health until approximately 2 months prior to presentation. At that time, she sustained trauma to the anterolateral aspect of the left calf, striking her leg against the bed frame. A wound resulted, which has failed to heal in normal fashion. She subsequently struck her leg against the bed frame a second time, again injuring the left lower extremity in the same location. She claims to have chronic swelling in the left lower extremity, that precedes her current injury. She sleeps in a recumbent position at night. 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 Past Medical History Past Medical History: Chronic Problems Traumatic open wound of lower leg (Chronic) Leg swelling (Chronic) Edema of leg (Chronic) Diabetes mellitus (Chronic) Morbid obesity with BMI of 45.0-49.9, adult (Chronic) COPD (chronic obstructive pulmonary disease) (Chronic) Coronary artery arteriosclerosis (Chronic) Surgical History: - - The patient has a history of coronary artery stent placement. She has undergone open reduction and internal fixation of a left tibia fracture. She underwent right meniscus repair in the past. She is a Ab0. Allergies/Adverse Reactions: Allergies No Known Allergies Allergy (Verified 09/03/13 11:12) Home Medications: Ambulatory Orders Medication Instructions Recorded Aspirin E.C. [Ecotrin] 81 mg PO DAILY@0800 09/03/13 Hydrocodone/Acetaminophen [Vicodin 1 - 2 tablet PO Q6H PRN PRN 09/03/13 5-300 mg Tablet] Lisinopril 10 mg PO DAILY 09/03/13 Metformin [Metformin HCl] 1,000 mg PO BID 09/03/13 Metoprolol Tartrate 50 mg PO DAILY 09/03/13 Dulaglutide [Trulicity] 0.75 mg SQ 01/02/18 Fluticasone/Vilanterol [Breo 1 each IH 01/02/18 Ellipta 200-25 Mcg INH] Insulin Glargine,Hum.rec.anlog 56 unit BID 01/02/18 [Lantus] Sitagliptin Phosphate [Januvia] 25 mg PO DAILY 01/02/18 Tiotropium [place] [Spiriva] 18 mcg IH 01/02/18 - Family History Paternal - - The patient's father at the age of 78 with history of chronic obstructive pulmonary disease. The patient's mother at the age of 84 with history of chronic obstructive pulmonary disease. Smoking Status: Former smoker Tobacco Use: Non-smoker Review of Systems Constitutional: Denies: Chills, Fever, Weight Change Eyes: Denies: Pain, Vision Change HEENT: Denies: Difficulty Hearing, Difficulty Swallowing, Sinus Congestion Cardiovascular: Denies: Chest Pain, Palpitations Respiratory: Denies: Cough, Shortness of Breath Gastrointestinal: Denies: Diarrhea, Nausea, Vomiting Genitourinary: Denies: Dysuria, Hematuria Endocrine: Denies: Heat/ Cold Intolerance, Polydipsia, Polyuria Hematologic/ Lymphatic: Denies: Easy Bruising, Easy Bleeding - Physical Exam Vital Signs Temp Pulse Resp BP Pulse Ox 98.2 F 113 H 20 H 154/82 H 94 06/25/18 15:31 06/25/18 15:31 06/25/18 15:31 06/25/18 15:31 06/22/18 00:47 General: Alert, Oriented x3, Cooperative, No apparent distress, Well developed, Well nourished HEENT: Atraumatic, PERRLA, EOMI, Normocephalic Oral: Moist Mucosa Neck: No JVD Lungs: Normal air movement Abdomen: Non-Distended, Obese Extremities: No clubbing, No cyanosis, No edema, No Calf Tenderness, - - Swelling and edema in the left lower extremity appear to be well controlled. It is minimal. The traumatic wound on the left lateral calf is now nearly completely healed. It is quite small in size. It is superficial. There is minimal bioburden. Dimensions are documented elsewhere. There is no sign of infection or cellulitis. Skin: No rashes Wound Measurements and Assessment WC - Nurse 1 - General Ulcer Measurement Start: 06/25/18 15:30 Freq: Status: Active Protocol: Activity Type Activity Date Activity User E-Sign Co-Sign Detail Recorded Client Recorded Date Recorded By Document 06/25/18 15:31 DL [id number] 06/25/18 15:39 DL 06/25/18 15:31 Wound Center Nurse 1 [Ulcer Assessment] #1 L Vaz -Current Size (cm) - Length 0.2 -Current Size (cm) - Width 0.2 -Current Size (cm) - Depth 0.1 -Total Square Cm 0.04 -Photo Taken No -Exudate Amt None Present -Wound Margin Flat & Intact -Granulation Amt Large (67-100%) -Granulation Quality [place] -Necrosis Amt None Present (0 %) -Structure Exposed N/A -Texture (Ketty-wound Skin Appearance) Scarring -Moisture (Ketty-wound Skin Appearance No Abnormality ) -Color (Ketty-wound Skin Appearance) No Abnormality -Temperature (Ketty-wound Skin No Abnormality Appearance) (Pt Warm) -Tenderness on Palpation (Ketty-wound No Skin Appearance) -Ulcer Cleansing Rinsed/ Irrigated with Saline -Foul Odor after Cleansing No -Anesthetic Used 4% Lidocaine Solution [Edema Assessment] -Left Calf (cm) 41.5 -Left Ankle (cm) 23 WC - Nurse 2 - General Ulcer CM Notes Start: 06/25/18 15:30 Freq: Status: Active Protocol: Activity Type Activity Date Activity User E-Sign Co-Sign Detail Recorded Client Recorded Date Recorded By Document 06/25/18 16:02 DV [id number] 06/25/18 16:05 DV 06/25/18 16:02 Wound Center Nurse 2 [Procedure/Treatment] #1 L Vaz -Time 16:02 -Correct Patient Yes -Correct Side, Site, Position Yes -Correct Procedure Yes -Procedure Performed Yes -Type of Procedure Debridement -Clinical Debridement Subcutaneous -Post Debridement Size (cm) - Length 0.5 -Post Debridement Size (cm) - Width 0.5 -Post Debridement Size (cm) - Depth 0.1 -Total Square Cm 0.25 -Wound/Ulcer Outcome Not Healed -Ulcer Cleansing Rinsed/ Irrigated with Saline -Foul Odor after Cleansing No -Bioengineered Tissue Yes -Type of bioengineered Tissue GRAFIX-Pime -Expiration Date 04/14/19 -Product Lot Number [id number] -Percent Used 100 -Saline Lot Number [id number] -Topical Lidocaine (%) 5 -Bleeding Controlled with Pressure -Offloading No -Treatment Response Procedure Tolerated Well [See Physician Procedure note for Specifics] Pain Scale: 0-10 Numeric [Pain] -Is Patient Pain Free? Yes Musculoskeletal: No Muscle Wasting Neurological: Cranial nerves II-XII grossly intact, Neuro grossly intact Psych/Mental Status: Normal Affect, Appropriate, Alert and oriented to time, place, person, mood and affect Debridement Note Post-Debridement Measurements/Treatment WC - Nurse 2 - General Ulcer CM Notes Start: 06/25/18 15:30 Freq: Status: Active Protocol: Activity Type Activity Date Activity User E-Sign Co-Sign Detail Recorded Client Recorded Date Recorded By Document 06/25/18 16:02 DV [id number] 06/25/18 16:05 DV 06/25/18 16:02 Wound Center Nurse 2 #1 L Vaz -Time 16:02 -Correct Patient Yes -Correct Side, Site, Position Yes -Correct Procedure Yes -Procedure Performed Yes -Type of Procedure Debridement -Clinical Debridement Subcutaneous -Post Debridement Size (cm) - Length 0.5 -Post Debridement Size (cm) - Width 0.5 -Post Debridement Size (cm) - Depth 0.1 -Total Square Cm 0.25 -Wound/Ulcer Outcome Not Healed -Ulcer Cleansing Rinsed/ Irrigated with Saline -Foul Odor after Cleansing No -Bioengineered Tissue Yes -Type of bioengineered Tissue GRAFIX-Pime -Expiration Date 04/14/19 -Product Lot Number [id number] -Percent Used 100 -Saline Lot Number [id number] -Topical Lidocaine (%) 5 -Bleeding Controlled with Pressure -Offloading No -Treatment Response Procedure Tolerated Well Pain Scale: 0-10 Numeric Is Patient Pain Free? Yes Laterality: Left - Lateral calf Type of Debridement: Excisional debridement Anesthesia Used: 5% Lidocaine Gel Depth: Down to and including healthy tissue, in the subcutaneous layer Percentage of wound debrided: 100 Instrument Used: 3mm curette Severity: Fat Layer Exposed Amount of bleeding with debridement: Mild Bleeding Controlled with: Compression and gauze Patient tolerated procedure well Following a routine excisional debridement, which was well tolerated, a Grafix PL Prime allograft was applied. A 16 mm disc allograft was selected. Upon removal from its sterile packaging, it was placed topically on the wound surface. It was moistened with sterile saline. Wound veil and gauze were then placed, and the site was anchored securely using Steri-Strips. The patient tolerated the procedure well. Assessment/Plan Active Problems Traumatic open wound of lower leg (Chronic) Leg swelling (Chronic) Edema of leg (Chronic) Morbid obesity with BMI of 45.0-49.9, adult (Chronic) Assessment: This is a 57-year-old female who presented with a traumatic wound on the anterolateral aspect of the left calf. The injury occurred approximately 2 months prior to presentation, and has failed to heal appropriately. The patient presented with ralph, nonviable tissue within the wound itself. She is known to be a diabetic. Patient has undergone a battery of diagnostic tests, with results as follows: Glucose 150, sodium 140, potassium 4.8, chloride 103, BUN 15, creatinine 0.80, calcium 9.5, total protein 6.7, albumin 3.9, alkaline phosphatase 61, AST 20, ALT 35, hemoglobin A1c 8.3, white blood count 6.2, hemoglobin 14.2, hematocrit 41.1, platelets 253,000. The patient's prior cultures were positive for Klebsiella pneumonia, pseudomonas aeruginosa, and Streptococcus. She was placed on Levaquin 750 mg p.o. daily for a total of 10 days, and completed her course. Recently, another culture was positive for Pseudomonas. The patient has completed another prescription for Levaquin 750 mg p.o. daily for 10 days. A noninvasive lower extremity arterial study is normal, revealing triphasic waveforms at ankle level bilaterally, normal resting ankle?brachial indices bilaterally, and normal digital-brachial indices bilaterally. A venous duplex examination reveals incompetence of the left great saphenous vein below the knee. The left small saphenous vein appears competent. The patient has shown significant improvement in recent weeks, with progressive decrease in the size of her wound. Plan: An allograft was placed today, and will be left in place for 1 week, undisturbed. This is the fifth application of Grafix PL Prime. The patient is to continue elevating her legs as much as possible. Compression is to be continued as previously, using double layer Tubigrip's. The patient will return in 1 week for reassessment. Another allograft is anticipated for her return appointment. However, it is possible that the wound may be completely healed by the time of her next follow-up visit. A noninvasive lower extremity arterial study is normal. We will continue the use of TubiGrip compression to the left lower extremity to assist in the control of swelling and edema. She is to use a double layer Tubigrip on the left lower extremity. She has also been encouraged to elevate her lower extremities as much as possible, and to avoid prolonged idle sitting. The patient has been encouraged to assure adequate nutrition. Optimizing glycemic control has also been advised. The patient will return in 1 week for reassessment. Influenza vaccine was not administered today. The patient is not a smoker. Patient weighs 265 pounds. She stands 5 feet 4 inches tall. Her BMI is 45.5, which places her in a class III category. Weight loss has been recommended, and collaboration with the patient's primary care physician has been recommended.
[2018-07-02 15:28] VITALS: BP 156/73; PULSE 110; RESP 20; TEMP 36.4; BMI 46.1
--- NOTE | 2018-07-02 15:52 | HP.PCM_ITS ---
(1) Traumatic open wound of lower leg Status: Chronic Current Visit: Yes Qualifiers: Encounter type: subsequent encounter Laterality: left Qualified Code(s): S81.802D - Unspecified open wound, left lower leg, subsequent encounter Code(s): S81.809A - Unspecified open wound, unspecified lower leg, initial encounter (2) Leg swelling Status: Chronic Current Visit: Yes Code(s): M79.89 - Other specified soft tissue disorders (3) Edema of leg Status: Chronic Current Visit: Yes Code(s): R60.0 - Localized edema (4) Diabetes mellitus Status: Chronic Current Visit: Yes Qualifiers: Diabetes mellitus type: type 2 Code(s): E11.9 - Type 2 diabetes mellitus without complications (5) Morbid obesity with BMI of 45.0-49.9, adult Status: Chronic Current Visit: Yes Code(s): E66.01 - Morbid (severe) obesity due to excess calories; Z68.42 - Body mass index (BMI) 45.0-49.9, adult (6) COPD (chronic obstructive pulmonary disease) Status: Chronic Current Visit: No Code(s): J44.9 - Chronic obstructive pulmonary disease, unspecified (7) Coronary artery arteriosclerosis Status: Chronic Current Visit: No Code(s): I25.10 - Atherosclerotic heart disease of [place] coronary artery without angina pectoris History of Present Illness Chief Complaint: Traumatic open wound of the left lower extremity History of Wound: This is a 57-year-old diabetic female who was in her normal state of health until approximately 2 months prior to presentation. At that time, she sustained trauma to the anterolateral aspect of the left calf, striking her leg against the bed frame. A wound resulted, which has failed to heal in normal fashion. She subsequently struck her leg against the bed frame a second time, again injuring the left lower extremity in the same location. She claims to have chronic swelling in the left lower extremity, that precedes her current injury. She sleeps in a recumbent position at night. 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 Past Medical History Past Medical History: Chronic Problems Traumatic open wound of lower leg (Chronic) Leg swelling (Chronic) Edema of leg (Chronic) Diabetes mellitus (Chronic) Morbid obesity with BMI of 45.0-49.9, adult (Chronic) COPD (chronic obstructive pulmonary disease) (Chronic) Coronary artery arteriosclerosis (Chronic) Surgical History: - - The patient has a history of coronary artery stent placement. She has undergone open reduction and internal fixation of a left tibia fracture. She underwent right meniscus repair in the past. She is a Ab0. Allergies/Adverse Reactions: Allergies No Known Allergies Allergy (Verified 09/03/13 11:12) Home Medications: Ambulatory Orders Medication Instructions Recorded Aspirin E.C. [Ecotrin] 81 mg PO DAILY@0800 09/03/13 Hydrocodone/Acetaminophen [Vicodin 1 - 2 tablet PO Q6H PRN PRN 09/03/13 5-300 mg Tablet] Lisinopril 10 mg PO DAILY 09/03/13 Metformin [Metformin HCl] 1,000 mg PO BID 09/03/13 Metoprolol Tartrate 50 mg PO DAILY 09/03/13 Dulaglutide [Trulicity] 0.75 mg SQ 01/02/18 Fluticasone/Vilanterol [Breo 1 each IH 01/02/18 Ellipta 200-25 Mcg INH] Insulin Glargine,Hum.rec.anlog 56 unit BID 01/02/18 [Lantus] Sitagliptin Phosphate [Januvia] 25 mg PO DAILY 01/02/18 Tiotropium [place] [Spiriva] 18 mcg IH 01/02/18 - Family History Paternal - - The patient's father at the age of 78 with history of chronic obstructive pulmonary disease. The patient's mother at the age of 84 with history of chronic obstructive pulmonary disease. Smoking Status: Former smoker Tobacco Use: Non-smoker Review of Systems Constitutional: Denies: Chills, Fever, Weight Change Eyes: Denies: Pain, Vision Change HEENT: Denies: Difficulty Hearing, Difficulty Swallowing, Sinus Congestion Cardiovascular: Denies: Chest Pain, Palpitations Respiratory: Denies: Cough, Shortness of Breath Gastrointestinal: Denies: Diarrhea, Nausea, Vomiting Genitourinary: Denies: Dysuria, Hematuria Endocrine: Denies: Heat/ Cold Intolerance, Polydipsia, Polyuria Hematologic/ Lymphatic: Denies: Easy Bruising, Easy Bleeding - Physical Exam Vital Signs Temp Pulse Resp BP Pulse Ox 97.6 F L 110 H 20 H 156/73 H 94 07/02/18 15:28 07/02/18 15:28 07/02/18 15:28 07/02/18 15:28 06/22/18 00:47 General: Alert, Oriented x3, Cooperative, No apparent distress, Well developed, Well nourished, - - Patient is obese HEENT: Atraumatic, PERRLA, EOMI, Normocephalic Oral: Moist Mucosa Neck: No JVD Lungs: Normal air movement Abdomen: Non-Distended, Obese Extremities: No clubbing, No cyanosis, No edema, No Calf Tenderness, - - The wound on the left lateral calf is now nearly completely healed. 90-95% of the original wound is epithelialized. Only a very small area remains to epithelialize and heal. There is no sign of infection. Dimensions are documented elsewhere. There is no significant bioburden. Skin: No rashes Wound Measurements and Assessment WC - Nurse 1 - General Ulcer Measurement Start: 06/25/18 15:30 Freq: Status: Active Protocol: Activity Type Activity Date Activity User E-Sign Co-Sign Detail Recorded Client Recorded Date Recorded By Document 07/02/18 15:28 DL [id number] 07/02/18 15:36 DL 07/02/18 15:28 Wound Center Nurse 1 [Ulcer Assessment] #1 L Vaz -Current Size (cm) - Length 0.5 -Current Size (cm) - Width 0.4 -Current Size (cm) - Depth 0.1 -Total Square Cm 0.20 -Photo Taken No -Exudate Amt None Present -Wound Margin Flat & Intact -Granulation Amt Small (1-33%) -Granulation Quality [place] -Necrosis Amt None Present (0 %) -Structure Exposed N/A -Texture (Ketty-wound Skin Appearance) Scarring -Moisture (Ketty-wound Skin Appearance Dry/Scaly ) -Color (Ketty-wound Skin Appearance) Rubor -Temperature (Ketty-wound Skin No Abnormality Appearance) (Pt Warm) -Tenderness on Palpation (Ketty-wound No Skin Appearance) -Ulcer Cleansing Wound Cleanser -Foul Odor after Cleansing No [Edema Assessment] -Left Calf (cm) 42 -Left Ankle (cm) 23.7 Neurological: Cranial nerves II-XII grossly intact, Neuro grossly intact Psych/Mental Status: Normal Affect, Appropriate, Alert and oriented to time, place, person, mood and affect Debridement Note Post-Debridement Measurements/Treatment WC - Nurse 2 - General Ulcer CM Notes Start: 06/25/18 15:30 Freq: Status: Active Protocol: Activity Type Activity Date Activity User E-Sign Co-Sign Detail Recorded Client Recorded Date Recorded By Document 06/25/18 16:02 DV [id number] 06/25/18 16:05 DV 06/25/18 16:02 Wound Center Nurse 2 #1 L Vaz -Time 16:02 -Correct Patient Yes -Correct Side, Site, Position Yes -Correct Procedure Yes -Procedure Performed Yes -Type of Procedure Debridement -Clinical Debridement Subcutaneous -Post Debridement Size (cm) - Length 0.5 -Post Debridement Size (cm) - Width 0.5 -Post Debridement Size (cm) - Depth 0.1 -Total Square Cm 0.25 -Wound/Ulcer Outcome Not Healed -Ulcer Cleansing Rinsed/ Irrigated with Saline -Foul Odor after Cleansing No -Bioengineered Tissue Yes -Type of bioengineered Tissue GRAFIX-Pime -Expiration Date 04/14/19 -Product Lot Number [id number] -Percent Used 100 -Saline Lot Number [id number] -Topical Lidocaine (%) 5 -Bleeding Controlled with Pressure -Offloading No -Treatment Response Procedure Tolerated Well Pain Scale: 0-10 Numeric Is Patient Pain Free? Yes No debridement was completed today - The patient's left lateral calf wound is now nearly completely healed. Only a very small area remains yet to heal. Assessment/Plan Active Problems Traumatic open wound of lower leg (Chronic) Leg swelling (Chronic) Edema of leg (Chronic) Diabetes mellitus (Chronic) Morbid obesity with BMI of 45.0-49.9, adult (Chronic) Assessment: This is a 57-year-old female who presented with a traumatic wound on the anterolateral aspect of the left calf. The injury occurred approximately 2 months prior to presentation, and has failed to heal appropriately. The patient presented with ralph, nonviable tissue within the wound itself. She is known to be a diabetic. Patient has undergone a battery of diagnostic tests, with results as follows: Glucose 150, sodium 140, potassium 4.8, chloride 103, BUN 15, creatinine 0.80, calcium 9.5, total protein 6.7, albumin 3.9, alkaline phosphatase 61, AST 20, ALT 35, hemoglobin A1c 8.3, white blood count 6.2, hemoglobin 14.2, hematocrit 41.1, platelets 253,000. The patient's prior cultures were positive for Klebsiella pneumonia, pseudomonas aeruginosa, and Streptococcus. She was placed on Levaquin 750 mg p.o. daily for a total of 10 days, and completed her course. Recently, another culture was positive for Pseudomonas. The patient has completed another prescription for Levaquin 750 mg p.o. daily for 10 days. A noninvasive lower extremity arterial study is normal, revealing triphasic waveforms at ankle level bilaterally, normal resting ankle?brachial indices bilaterally, and normal digital-brachial indices bilaterally. A venous duplex examination reveals incompetence of the left great saphenous vein below the knee. The left small saphenous vein appears competent. The patient has shown significant improvement in recent weeks, with progressive decrease in the size of her wound, which is now nearly completely healed. Plan: The patient's left lateral calf wound is now nearly completely healed. Only a very small area remains yet to heal and epithelialize. We are to transition to the use of collagen hydrogel, which will be applied topically on a daily basis by the patient. The patient is to continue elevating her legs as much as possible. Compression is to be continued as previously, using double layer Tubigrip's. The patient will return in 1 week for reassessment. It is possible that the wound may be completely healed by the time of her next follow- up visit. A noninvasive lower extremity arterial study is normal. We will continue the use of TubiGrip compression to the left lower extremity to assist in the control of swelling and edema. She is to use a double layer Tubigrip on the left lower extremity. She has also been encouraged to elevate her lower extremities as much as possible, and to avoid prolonged idle sitting. The patient has been encouraged to assure adequate nutrition. Optimizing glycemic control has also been advised. The patient will return in 1 week for reassessment. Influenza vaccine was not administered today. The patient is not a smoker. Patient weighs 265 pounds. She stands 5 feet 4 inches tall. Her BMI is 45.5, which places her in a class III category. Weight loss has been recommended, and collaboration with the patient's primary care physician has been recommended.
[2018-07-09 15:30] VITALS: BP 130/70; PULSE 126; RESP 20; TEMP 37.3; BMI 46.1
--- NOTE | 2018-07-09 16:34 | PCM.WC.HP ---
(1) Traumatic open wound of lower leg Status: Chronic Current Visit: Yes Qualifiers: Encounter type: subsequent encounter Laterality: left Qualified Code(s): S81.802D - Unspecified open wound, left lower leg, subsequent encounter Code(s): S81.809A - Unspecified open wound, unspecified lower leg, initial encounter (2) Leg swelling Status: Chronic Current Visit: Yes Code(s): M79.89 - Other specified soft tissue disorders (3) Edema of leg Status: Chronic Current Visit: Yes Code(s): R60.0 - Localized edema (4) Diabetes mellitus Status: Chronic Current Visit: Yes Qualifiers: Diabetes mellitus type: type 2 Code(s): E11.9 - Type 2 diabetes mellitus without complications (5) Morbid obesity with BMI of 45.0-49.9, adult Status: Chronic Current Visit: Yes Code(s): E66.01 - Morbid (severe) obesity due to excess calories; Z68.42 - Body mass index (BMI) 45.0-49.9, adult (6) COPD (chronic obstructive pulmonary disease) Status: Chronic Current Visit: No Code(s): J44.9 - Chronic obstructive pulmonary disease, unspecified (7) Coronary artery arteriosclerosis Status: Chronic Current Visit: No Code(s): I25.10 - Atherosclerotic heart disease of [place] coronary artery without angina pectoris History of Present Illness Chief Complaint: Traumatic open wound of the left lower extremity History of Wound: This is a 57-year-old diabetic female who was in her normal state of health until approximately 2 months prior to presentation. At that time, she sustained trauma to the anterolateral aspect of the left calf, striking her leg against the bed frame. A wound resulted, which has failed to heal in normal fashion. She subsequently struck her leg against the bed frame a second time, again injuring the left lower extremity in the same location. She claims to have chronic swelling in the left lower extremity, that precedes her current injury. She sleeps in a recumbent position at night. 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 Past Medical History Past Medical History: Chronic Problems Traumatic open wound of lower leg (Chronic) Leg swelling (Chronic) Edema of leg (Chronic) Diabetes mellitus (Chronic) Morbid obesity with BMI of 45.0-49.9, adult (Chronic) COPD (chronic obstructive pulmonary disease) (Chronic) Coronary artery arteriosclerosis (Chronic) Surgical History: - - The patient has a history of coronary artery stent placement. She has undergone open reduction and internal fixation of a left tibia fracture. She underwent right meniscus repair in the past. She is a Ab0. Allergies/Adverse Reactions: Allergies No Known Allergies Allergy (Verified 09/03/13 11:12) Home Medications: Ambulatory Orders Medication Instructions Recorded Aspirin E.C. [Ecotrin] 81 mg PO DAILY@0800 09/03/13 Hydrocodone/Acetaminophen [Vicodin 1 - 2 tablet PO Q6H PRN PRN 09/03/13 5-300 mg Tablet] Lisinopril 10 mg PO DAILY 09/03/13 Metformin [Metformin HCl] 1,000 mg PO BID 09/03/13 Metoprolol Tartrate 50 mg PO DAILY 09/03/13 Dulaglutide [Trulicity] 0.75 mg SQ 01/02/18 Fluticasone/Vilanterol [Breo 1 each IH 01/02/18 Ellipta 200-25 Mcg INH] Insulin Glargine,Hum.rec.anlog 56 unit BID 01/02/18 [Lantus] Sitagliptin Phosphate [Januvia] 25 mg PO DAILY 01/02/18 Tiotropium Mcgrady [Spiriva] 18 mcg IH 01/02/18 - Family History Paternal - - The patient's father at the age of 78 with history of chronic obstructive pulmonary disease. The patient's mother at the age of 84 with history of chronic obstructive pulmonary disease. Smoking Status: Former smoker Tobacco Use: Non-smoker Review of Systems Constitutional: Denies: Chills, Fever, Weight Change Eyes: Denies: Pain, Vision Change HEENT: Denies: Difficulty Hearing, Difficulty Swallowing, Sinus Congestion Cardiovascular: Denies: Chest Pain, Palpitations Respiratory: Denies: Cough, Shortness of Breath Gastrointestinal: Denies: Diarrhea, Nausea, Vomiting Genitourinary: Denies: Dysuria, Hematuria Endocrine: Denies: Heat/ Cold Intolerance, Polydipsia, Polyuria Hematologic/ Lymphatic: Denies: Easy Bruising, Easy Bleeding - Physical Exam Vital Signs Temp Pulse Resp BP Pulse Ox 99.1 F 126 H 20 H 130/70 H 94 07/09/18 15:30 07/09/18 15:30 07/09/18 15:30 07/09/18 15:30 06/22/18 00:47 General: Alert, Oriented x3, Cooperative, No apparent distress, Well developed, Well nourished, - - The patient is obese. HEENT: Atraumatic, PERRLA, EOMI, Normocephalic Oral: Moist Mucosa Neck: No JVD Lungs: Normal air movement Abdomen: Non-Distended, Obese Extremities: No clubbing, No cyanosis, No edema, No Calf Tenderness, - - The ulceration on the left lateral calf persists, though is approximately 80% healed. There has been significant epithelialization in recent weeks. Only a small portion remains yet to heal. The remaining portion of the ulceration is pink and healthy in appearance, with active granulation tissue. There is no sign of infection or cellulitis. There is only a small amount of bioburden. Skin: No rashes Wound Measurements and Assessment WC - Nurse 1 - General Ulcer Measurement Start: 06/25/18 15:30 Freq: Status: Active Protocol: Activity Type Activity Date Activity User E-Sign Co-Sign Detail Recorded Client Recorded Date Recorded By Document 07/09/18 15:30 AN [id number] 07/09/18 15:46 AN 07/09/18 15:30 Wound Center Nurse 1 [Ulcer Assessment] #1 L Vaz -Current Size (cm) - Length 1.2 -Current Size (cm) - Width 0.5 -Current Size (cm) - Depth 0.1 -Total Square Cm 0.60 -Photo Taken No -Epithelialization None Present -Tunneling No -Undermining/Tunneling No -Circular Undermining No -Classification - Thickness Full Thickness without Exposed Support Structure -Exudate Amt None Present -Wound Margin Distinct, Outline Attached -Granulation Amt Large (67-100%) -Granulation Quality Red -Slough/Fibrin Yes -Necrosis Amt Small (1-33%) -Necrotic Tissue Type Adherent Slough -Structure Exposed None/Limited to Skin Breakdown -Texture (Ketty-wound Skin Appearance) Assessed Scarring -Moisture (Ketty-wound Skin Appearance Assessed ) -Color (Ketty-wound Skin Appearance) Assessed -Temperature (Ketty-wound Skin No Abnormality Appearance) (Pt Warm) -Tenderness on Palpation (Ketty-wound No Skin Appearance) -Ulcer Cleansing Rinsed/ Irrigated with Saline -Foul Odor after Cleansing No -Anesthetic Used 5% Lidocaine Gel [Edema Assessment] -Left Calf (cm) 44 -Left Ankle (cm) 24.3 - Nurse 2 - General Ulcer CM Notes Start: 06/25/18 15:30 Freq: Status: Active Protocol: Activity Type Activity Date Activity User E-Sign Co-Sign Detail Recorded Client Recorded Date Recorded By Document 07/09/18 16:29 DV [id number] 07/09/18 16:33 DV 07/09/18 16:29 Wound Center Nurse 2 [Procedure/Treatment] #1 L Vaz -Time 16:15 -Correct Patient Yes -Correct Side, Site, Position Yes -Correct Procedure Yes -Procedure Performed Yes -Type of Procedure Debridement -Clinical Debridement Subcutaneous -Post Debridement Size (cm) - Length 1.3 -Post Debridement Size (cm) - Width 1.0 -Post Debridement Size (cm) - Depth 0.1 -Total Square Cm 1.30 -Wound/Ulcer Outcome Not Healed -Ulcer Cleansing Rinsed/ Irrigated with Saline -Foul Odor after Cleansing No -Bioengineered Tissue Yes -Type of bioengineered Tissue GRAFIX-Pime -Expiration Date 05/15/19 -Product Lot Number [id number] -Percent Used 100 -Topical Lidocaine (%) 5 -Bleeding Controlled with Pressure -Offloading No -Treatment Response Procedure Tolerated Well [See Physician Procedure note for Specifics] Pain Scale: 0-10 Numeric [Pain] -Is Patient Pain Free? Yes Musculoskeletal: No Muscle Wasting Neurological: Cranial nerves II-XII grossly intact, Neuro grossly intact Psych/Mental Status: Normal Affect, Appropriate, Alert and oriented to time, place, person, mood and affect Debridement Note Post-Debridement Measurements/Treatment - Nurse 2 - General Ulcer CM Notes Start: 06/25/18 15:30 Freq: Status: Active Protocol: Activity Type Activity Date Activity User E-Sign Co-Sign Detail Recorded Client Recorded Date Recorded By Document 06/25/18 16:02 DV [id number] 06/25/18 16:05 DV Document 07/09/18 16:29 DV [id number] 07/09/18 16:33 DV 06/25/18 07/09/18 16:02 16:29 Wound Center Nurse 2 #1 L Vaz -Time 16:02 16:15 -Correct Patient Yes Yes -Correct Side, Site, Position Yes Yes -Correct Procedure Yes Yes -Procedure Performed Yes Yes -Type of Procedure Debridement Debridement -Clinical Debridement Subcutaneous Subcutaneous -Post Debridement Size (cm) - Length 0.5 1.3 -Post Debridement Size (cm) - Width 0.5 1.0 -Post Debridement Size (cm) - Depth 0.1 0.1 -Total Square Cm 0.25 1.30 -Wound/Ulcer Outcome Not Healed Not Healed -Ulcer Cleansing Rinsed/ Rinsed/ Irrigated with Irrigated with Saline Saline -Foul Odor after Cleansing No No -Bioengineered Tissue Yes Yes -Type of bioengineered Tissue GRAFIX-Pime GRAFIX-Pime -Expiration Date 04/14/19 05/15/19 -Product Lot Number [id number] -Percent Used 100 100 -Saline Lot Number [id number] -Topical Lidocaine (%) 5 5 -Bleeding Controlled with Pressure Pressure -Offloading No No -Treatment Response Procedure Procedure Tolerated Well Tolerated Well Pain Scale: 0-10 Numeric Is Patient Pain Free? Yes Yes Laterality: Left - Lateral calf Type of Debridement: Excisional debridement Anesthesia Used: 5% Lidocaine Gel Depth: Down to and including healthy tissue, in the subcutaneous layer Percentage of wound debrided: 100 Instrument Used: 5mm curette Severity: Fat Layer Exposed Amount of bleeding with debridement: Mild Bleeding Controlled with: Compression and gauze Patient tolerated procedure well Routine excisional debridement was performed of the patient's left lateral calf wound, which was well-tolerated. Following the debridement, and appropriate hemostasis, a [address] Prime allograft was placed topically. Upon removal from its sterile packaging, the allograft was placed topically on the wound site. There was slightly moistened with sterile saline. Wound veil and gauze was then applied, and the site was secured using Steri-Strips. The procedure was well-tolerated. Assessment/Plan Active Problems Traumatic open wound of lower leg (Chronic) Leg swelling (Chronic) Edema of leg (Chronic) Diabetes mellitus (Chronic) Morbid obesity with BMI of 45.0-49.9, adult (Chronic) Assessment: This is a 57-year-old female who presented with a traumatic wound on the anterolateral aspect of the left calf. The injury occurred approximately 2 months prior to presentation, and has failed to heal appropriately. The patient presented with ralph, nonviable tissue within the wound itself. She is known to be a diabetic. Patient has undergone a battery of diagnostic tests, with results as follows: Glucose 150, sodium 140, potassium 4.8, chloride 103, BUN 15, creatinine 0.80, calcium 9.5, total protein 6.7, albumin 3.9, alkaline phosphatase 61, AST 20, ALT 35, hemoglobin A1c 8.3, white blood count 6.2, hemoglobin 14.2, hematocrit 41.1, platelets 253,000. The patient's prior cultures were positive for Klebsiella pneumonia, pseudomonas aeruginosa, and Streptococcus. She was placed on Levaquin 750 mg p.o. daily for a total of 10 days, and completed her course. Recently, another culture was positive for Pseudomonas. The patient has completed another prescription for Levaquin 750 mg p.o. daily for 10 days. A noninvasive lower extremity arterial study is normal, revealing triphasic waveforms at ankle level bilaterally, normal resting ankle?brachial indices bilaterally, and normal digital-brachial indices bilaterally. A venous duplex examination reveals incompetence of the left great saphenous vein below the knee. The left small saphenous vein appears competent. The patient has shown significant improvement in recent weeks, with progressive decrease in the size of her wound. However, yesterday, while attending her [employer] tournament, the youngster accidentally kicked the patient in the left leg, at the site of her open wound. This has resulted in a mild setback, with reopening of a small portion of the wound, now amounting to approximately 20% of the entire wound surface remaining open. Approximately 80% is now epithelialized. Plan: The patient has showed good progress. Only a very small area remains yet to heal and epithelialize, approximately 20% of the original wound surface. We have placed a Grafix PL Prime allograft today, which will be left in place and undisturbed until the patient's next visit in 1 week. This represents the 6th such allograft application. The patient is to continue elevating her legs as much as possible. Compression is to be continued as previously, using double layer Tubigrip's. The patient will return in 1 week for reassessment. A noninvasive lower extremity arterial study is normal. We will continue the use of TubiGrip compression to the left lower extremity to assist in the control of swelling and edema. She is to use a double layer Tubigrip on the left lower extremity. She has also been encouraged to elevate her lower extremities as much as possible, and to avoid prolonged idle sitting. The patient has been encouraged to assure adequate nutrition. Optimizing glycemic control has also been advised. The patient will return in 1 week for reassessment. Influenza vaccine was not administered today. The patient is not a smoker. Patient weighs 265 pounds. She stands 5 feet 4 inches tall. Her BMI is 45.5, which places her in a class III category. Weight loss has been recommended, and collaboration with the patient's primary care physician has been recommended.
--- NOTE | 2018-07-09 16:38 | HP.PCM_ITS ---
(1) Traumatic open wound of lower leg Status: Chronic Current Visit: Yes Qualifiers: Encounter type: subsequent encounter Laterality: left Qualified Code(s): S81.802D - Unspecified open wound, left lower leg, subsequent encounter Code(s): S81.809A - Unspecified open wound, unspecified lower leg, initial encounter (2) Leg swelling Status: Chronic Current Visit: Yes Code(s): M79.89 - Other specified soft tissue disorders (3) Edema of leg Status: Chronic Current Visit: Yes Code(s): R60.0 - Localized edema (4) Diabetes mellitus Status: Chronic Current Visit: Yes Qualifiers: Diabetes mellitus type: type 2 Code(s): E11.9 - Type 2 diabetes mellitus without complications (5) Morbid obesity with BMI of 45.0-49.9, adult Status: Chronic Current Visit: Yes Code(s): E66.01 - Morbid (severe) obesity due to excess calories; Z68.42 - Body mass index (BMI) 45.0-49.9, adult (6) COPD (chronic obstructive pulmonary disease) Status: Chronic Current Visit: No Code(s): J44.9 - Chronic obstructive pulmonary disease, unspecified (7) Coronary artery arteriosclerosis Status: Chronic Current Visit: No Code(s): I25.10 - Atherosclerotic heart disease of [place] coronary artery without angina pectoris History of Present Illness Chief Complaint: Traumatic open wound of the left lower extremity History of Wound: This is a 57-year-old diabetic female who was in her normal state of health until approximately 2 months prior to presentation. At that time, she sustained trauma to the anterolateral aspect of the left calf, striking her leg against the bed frame. A wound resulted, which has failed to heal in normal fashion. She subsequently struck her leg against the bed frame a second time, again injuring the left lower extremity in the same location. She claims to have chronic swelling in the left lower extremity, that precedes her current injury. She sleeps in a recumbent position at night. 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 Past Medical History Past Medical History: Chronic Problems Traumatic open wound of lower leg (Chronic) Leg swelling (Chronic) Edema of leg (Chronic) Diabetes mellitus (Chronic) Morbid obesity with BMI of 45.0-49.9, adult (Chronic) COPD (chronic obstructive pulmonary disease) (Chronic) Coronary artery arteriosclerosis (Chronic) Surgical History: - - The patient has a history of coronary artery stent placement. She has undergone open reduction and internal fixation of a left tibia fracture. She underwent right meniscus repair in the past. She is a Ab0. Allergies/Adverse Reactions: Allergies No Known Allergies Allergy (Verified 09/03/13 11:12) Home Medications: Ambulatory Orders Medication Instructions Recorded Aspirin E.C. [Ecotrin] 81 mg PO DAILY@0800 09/03/13 Hydrocodone/Acetaminophen [Vicodin 1 - 2 tablet PO Q6H PRN PRN 09/03/13 5-300 mg Tablet] Lisinopril 10 mg PO DAILY 09/03/13 Metformin [Metformin HCl] 1,000 mg PO BID 09/03/13 Metoprolol Tartrate 50 mg PO DAILY 09/03/13 Dulaglutide [Trulicity] 0.75 mg SQ 01/02/18 Fluticasone/Vilanterol [Breo 1 each IH 01/02/18 Ellipta 200-25 Mcg INH] Insulin Glargine,Hum.rec.anlog 56 unit BID 01/02/18 [Lantus] Sitagliptin Phosphate [Januvia] 25 mg PO DAILY 01/02/18 Tiotropium [place] [Spiriva] 18 mcg IH 01/02/18 - Family History Paternal - - The patient's father at the age of 78 with history of chronic obstructive pulmonary disease. The patient's mother at the age of 84 with history of chronic obstructive pulmonary disease. Smoking Status: Former smoker Tobacco Use: Non-smoker Review of Systems Constitutional: Denies: Chills, Fever, Weight Change Eyes: Denies: Pain, Vision Change HEENT: Denies: Difficulty Hearing, Difficulty Swallowing, Sinus Congestion Cardiovascular: Denies: Chest Pain, Palpitations Respiratory: Denies: Cough, Shortness of Breath Gastrointestinal: Denies: Diarrhea, Nausea, Vomiting Genitourinary: Denies: Dysuria, Hematuria Endocrine: Denies: Heat/ Cold Intolerance, Polydipsia, Polyuria Hematologic/ Lymphatic: Denies: Easy Bruising, Easy Bleeding - Physical Exam Vital Signs Temp Pulse Resp BP Pulse Ox 99.1 F 126 H 20 H 130/70 H 94 07/09/18 15:30 07/09/18 15:30 07/09/18 15:30 07/09/18 15:30 06/22/18 00:47 General: Alert, Oriented x3, Cooperative, No apparent distress, Well developed, Well nourished, - - The patient is obese. HEENT: Atraumatic, PERRLA, EOMI, Normocephalic Oral: Moist Mucosa Neck: No JVD Lungs: Normal air movement Abdomen: Non-Distended, Obese Extremities: No clubbing, No cyanosis, No edema, No Calf Tenderness, - - The ulceration on the left lateral calf persists, though is approximately 80% healed. There has been significant epithelialization in recent weeks. Only a small portion remains yet to heal. The remaining portion of the ulceration is pink and healthy in appearance, with active granulation tissue. There is no sign of infection or cellulitis. There is only a small amount of bioburden. Skin: No rashes Wound Measurements and Assessment WC - Nurse 1 - General Ulcer Measurement Start: 06/25/18 15:30 Freq: Status: Active Protocol: Activity Type Activity Date Activity User E-Sign Co-Sign Detail Recorded Client Recorded Date Recorded By Document 07/09/18 15:30 AN [id number] 07/09/18 15:46 AN 07/09/18 15:30 Wound Center Nurse 1 [Ulcer Assessment] #1 L Vaz -Current Size (cm) - Length 1.2 -Current Size (cm) - Width 0.5 -Current Size (cm) - Depth 0.1 -Total Square Cm 0.60 -Photo Taken No -Epithelialization None Present -Tunneling No -Undermining/Tunneling No -Circular Undermining No -Classification - Thickness Full Thickness without Exposed Support Structure -Exudate Amt None Present -Wound Margin Distinct, Outline Attached -Granulation Amt Large (67-100%) -Granulation Quality Red -Slough/Fibrin Yes -Necrosis Amt Small (1-33%) -Necrotic Tissue Type Adherent Slough -Structure Exposed None/Limited to Skin Breakdown -Texture (Ketty-wound Skin Appearance) Assessed Scarring -Moisture (Ketty-wound Skin Appearance Assessed ) -Color (Ketty-wound Skin Appearance) Assessed -Temperature (Ketty-wound Skin No Abnormality Appearance) (Pt Warm) -Tenderness on Palpation (Ketty-wound No Skin Appearance) -Ulcer Cleansing Rinsed/ Irrigated with Saline -Foul Odor after Cleansing No -Anesthetic Used 5% Lidocaine Gel [Edema Assessment] -Left Calf (cm) 44 -Left Ankle (cm) 24.3 - Nurse 2 - General Ulcer CM Notes Start: 06/25/18 15:30 Freq: Status: Active Protocol: Activity Type Activity Date Activity User E-Sign Co-Sign Detail Recorded Client Recorded Date Recorded By Document 07/09/18 16:29 DV [id number] 07/09/18 16:33 DV 07/09/18 16:29 Wound Center Nurse 2 [Procedure/Treatment] #1 L Vaz -Time 16:15 -Correct Patient Yes -Correct Side, Site, Position Yes -Correct Procedure Yes -Procedure Performed Yes -Type of Procedure Debridement -Clinical Debridement Subcutaneous -Post Debridement Size (cm) - Length 1.3 -Post Debridement Size (cm) - Width 1.0 -Post Debridement Size (cm) - Depth 0.1 -Total Square Cm 1.30 -Wound/Ulcer Outcome Not Healed -Ulcer Cleansing Rinsed/ Irrigated with Saline -Foul Odor after Cleansing No -Bioengineered Tissue Yes -Type of bioengineered Tissue GRAFIX-Pime -Expiration Date 05/15/19 -Product Lot Number [id number] -Percent Used 100 -Topical Lidocaine (%) 5 -Bleeding Controlled with Pressure -Offloading No -Treatment Response Procedure Tolerated Well [See Physician Procedure note for Specifics] Pain Scale: 0-10 Numeric [Pain] -Is Patient Pain Free? Yes Musculoskeletal: No Muscle Wasting Neurological: Cranial nerves II-XII grossly intact, Neuro grossly intact Psych/Mental Status: Normal Affect, Appropriate, Alert and oriented to time, place, person, mood and affect Debridement Note Post-Debridement Measurements/Treatment - Nurse 2 - General Ulcer CM Notes Start: 06/25/18 15:30 Freq: Status: Active Protocol: Activity Type Activity Date Activity User E-Sign Co-Sign Detail Recorded Client Recorded Date Recorded By Document 06/25/18 16:02 DV [id number] 06/25/18 16:05 DV Document 07/09/18 16:29 DV [id number] 07/09/18 16:33 DV 06/25/18 07/09/18 16:02 16:29 Wound Center Nurse 2 #1 L Vaz -Time 16:02 16:15 -Correct Patient Yes Yes -Correct Side, Site, Position Yes Yes -Correct Procedure Yes Yes -Procedure Performed Yes Yes -Type of Procedure Debridement Debridement -Clinical Debridement Subcutaneous Subcutaneous -Post Debridement Size (cm) - Length 0.5 1.3 -Post Debridement Size (cm) - Width 0.5 1.0 -Post Debridement Size (cm) - Depth 0.1 0.1 -Total Square Cm 0.25 1.30 -Wound/Ulcer Outcome Not Healed Not Healed -Ulcer Cleansing Rinsed/ Rinsed/ Irrigated with Irrigated with Saline Saline -Foul Odor after Cleansing No No -Bioengineered Tissue Yes Yes -Type of bioengineered Tissue GRAFIX-Pime GRAFIX-Pime -Expiration Date 04/14/19 05/15/19 -Product Lot Number [id number] -Percent Used 100 100 -Saline Lot Number [id number] -Topical Lidocaine (%) 5 5 -Bleeding Controlled with Pressure Pressure -Offloading No No -Treatment Response Procedure Procedure Tolerated Well Tolerated Well Pain Scale: 0-10 Numeric Is Patient Pain Free? Yes Yes Laterality: Left - Lateral calf Type of Debridement: Excisional debridement Anesthesia Used: 5% Lidocaine Gel Depth: Down to and including healthy tissue, in the subcutaneous layer Percentage of wound debrided: 100 Instrument Used: 5mm curette Severity: Fat Layer Exposed Amount of bleeding with debridement: Mild Bleeding Controlled with: Compression and gauze Patient tolerated procedure well Routine excisional debridement was performed of the patient's left lateral calf wound, which was well-tolerated. Following the debridement, and appropriate hemostasis, a [address] Prime allograft was placed topically. Upon removal from its sterile packaging, the allograft was placed topically on the wound site. There was slightly moistened with sterile saline. Wound veil and gauze was then applied, and the site was secured using Steri-Strips. The procedure was well-tolerated. Assessment/Plan Active Problems Traumatic open wound of lower leg (Chronic) Leg swelling (Chronic) Edema of leg (Chronic) Diabetes mellitus (Chronic) Morbid obesity with BMI of 45.0-49.9, adult (Chronic) Assessment: This is a 57-year-old female who presented with a traumatic wound on the anterolateral aspect of the left calf. The injury occurred approximately 2 months prior to presentation, and has failed to heal appropriately. The patient presented with ralph, nonviable tissue within the wound itself. She is known to be a diabetic. Patient has undergone a battery of diagnostic tests, with results as follows: Glucose 150, sodium 140, potassium 4.8, chloride 103, BUN 15, creatinine 0.80, calcium 9.5, total protein 6.7, albumin 3.9, alkaline phosphatase 61, AST 20, ALT 35, hemoglobin A1c 8.3, white blood count 6.2, hemoglobin 14.2, hematocrit 41.1, platelets 253,000. The patient's prior cultures were positive for Klebsiella pneumonia, pseudomonas aeruginosa, and Str eptococcus. She was placed on Levaquin 750 mg p.o. daily for a total of 10 days, and completed her course. Recently, another culture was positive for Pseudomonas. The patient has completed another prescription for Levaquin 750 mg p.o. daily for 10 days. A noninvasive lower extremity arterial study is normal, revealing triphasic waveforms at ankle level bilaterally, normal resting ankle?brachial indices bilaterally, and normal digital-brachial indices bilaterally. A venous duplex examination reveals incompetence of the left great saphenous vein below the knee. The left small saphenous vein appears competent. The patient has shown significant improvement in recent weeks, with progressive decrease in the size of her wound. However, yesterday, while attending her [employer] tournament, the youngster accidentally kicked the patient in the left leg, at the site of her open wound. This has resulted in a mild setback, with reopening of a small portion of the wound, now amounting to approximately 20% of the entire wound surface remaining open. Approximately 80% is now epithelialized. Plan: The patient has showed good progress. Only a very small area remains yet to heal and epithelialize, approximately 20% of the original wound surface. We have placed a Grafix PL Prime allograft today, which will be left in place and undisturbed until the patient's next visit in 1 week. This represents the 6th such allograft application. The patient is to continue elevating her legs as much as possible. Compression is to be continued as previously, using double layer Tubigrip's. The patient will return in 1 week for reassessment. A noninvasive lower extremity arterial study is normal. We will continue the use of TubiGrip compression to the left lower extremity to assist in the control of swelling and edema. She is to use a double layer Tubigrip on the left lower extremity. She has also been encouraged to elevate her lower extremities as much as possible, and to avoid prolonged idle sitting. The patient has been encouraged to assure adequate nutrition. Optimizing glycemic control has also been advised. The patient will return in 1 week for reassessment. Influenza vaccine was not administered today. The patient is not a smoker. Patient weighs 265 pounds. She stands 5 feet 4 inches tall. Her BMI is 45.5, which places her in a class III category. Weight loss has been recommended, and collaboration with the patient's primary care physician has been recommended.
[2018-07-17 08:54] VITALS: BP 163/85; PULSE 107; RESP 18; TEMP 36.6; BMI 46.1
--- NOTE | 2018-07-17 09:13 | PCM.WC.HP ---
(1) Traumatic open wound of lower leg Status: Chronic Current Visit: Yes Qualifiers: Encounter type: subsequent encounter Laterality: left Qualified Code(s): S81.802D - Unspecified open wound, left lower leg, subsequent encounter Code(s): S81.809A - Unspecified open wound, unspecified lower leg, initial encounter (2) Leg swelling Status: Chronic Current Visit: Yes Code(s): M79.89 - Other specified soft tissue disorders (3) Edema of leg Status: Chronic Current Visit: Yes Code(s): R60.0 - Localized edema (4) Diabetes mellitus Status: Chronic Current Visit: Yes Qualifiers: Diabetes mellitus type: type 2 Code(s): E11.9 - Type 2 diabetes mellitus without complications (5) Morbid obesity with BMI of 45.0-49.9, adult Status: Chronic Current Visit: Yes Code(s): E66.01 - Morbid (severe) obesity due to excess calories; Z68.42 - Body mass index (BMI) 45.0-49.9, adult (6) COPD (chronic obstructive pulmonary disease) Status: Chronic Current Visit: No Code(s): J44.9 - Chronic obstructive pulmonary disease, unspecified (7) Coronary artery arteriosclerosis Status: Chronic Current Visit: No Code(s): I25.10 - Atherosclerotic heart disease of [place] coronary artery without angina pectoris History of Present Illness Chief Complaint: Traumatic open wound of the left lower extremity History of Wound: This is a 57-year-old diabetic female who was in her normal state of health until approximately 2 months prior to presentation. At that time, she sustained trauma to the anterolateral aspect of the left calf, striking her leg against the bed frame. A wound resulted, which has failed to heal in normal fashion. She subsequently struck her leg against the bed frame a second time, again injuring the left lower extremity in the same location. She claims to have chronic swelling in the left lower extremity, that precedes her current injury. She sleeps in a recumbent position at night. 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 Past Medical History Past Medical History: Chronic Problems Traumatic open wound of lower leg (Chronic) Leg swelling (Chronic) Edema of leg (Chronic) Diabetes mellitus (Chronic) Morbid obesity with BMI of 45.0-49.9, adult (Chronic) COPD (chronic obstructive pulmonary disease) (Chronic) Coronary artery arteriosclerosis (Chronic) Surgical History: - - The patient has a history of coronary artery stent placement. She has undergone open reduction and internal fixation of a left tibia fracture. She underwent right meniscus repair in the past. She is a Ab0. Allergies/Adverse Reactions: Allergies No Known Allergies Allergy (Verified 09/03/13 11:12) Home Medications: Ambulatory Orders Medication Instructions Recorded Aspirin E.C. [Ecotrin] 81 mg PO DAILY@0800 09/03/13 Hydrocodone/Acetaminophen [Vicodin 1 - 2 tablet PO Q6H PRN PRN 09/03/13 5-300 mg Tablet] Lisinopril 10 mg PO DAILY 09/03/13 Metformin [Metformin HCl] 1,000 mg PO BID 09/03/13 Metoprolol Tartrate 50 mg PO DAILY 09/03/13 Dulaglutide [Trulicity] 0.75 mg SQ 01/02/18 Fluticasone/Vilanterol [Breo 1 each IH 01/02/18 Ellipta 200-25 Mcg INH] Insulin Glargine,Hum.rec.anlog 56 unit BID 01/02/18 [Lantus] Sitagliptin Phosphate [Januvia] 25 mg PO DAILY 01/02/18 Tiotropium [place] [Spiriva] 18 mcg IH 01/02/18 - Family History Paternal - - The patient's father at the age of 78 with history of chronic obstructive pulmonary disease. The patient's mother at the age of 84 with history of chronic obstructive pulmonary disease. Smoking Status: Former smoker Tobacco Use: Non-smoker Review of Systems Constitutional: Denies: Chills, Fever, Weight Change Eyes: Denies: Pain, Vision Change HEENT: Denies: Difficulty Hearing, Difficulty Swallowing, Sinus Congestion Cardiovascular: Denies: Chest Pain, Palpitations Respiratory: Denies: Cough, Shortness of Breath Gastrointestinal: Denies: Diarrhea, Nausea, Vomiting Genitourinary: Denies: Dysuria, Hematuria Endocrine: Denies: Heat/ Cold Intolerance, Polydipsia, Polyuria Hematologic/ Lymphatic: Denies: Easy Bruising, Easy Bleeding - Physical Exam Vital Signs Temp Pulse Resp BP Pulse Ox 97.8 F 107 H 18 163/85 H 94 07/17/18 08:54 07/17/18 08:54 07/17/18 08:54 07/17/18 08:54 06/22/18 00:47 General: Alert, Oriented x3, Cooperative, No apparent distress, Well developed, Well nourished HEENT: Atraumatic, PERRLA, EOMI, Normocephalic Oral: Moist Mucosa Neck: No JVD Lungs: Normal air movement Abdomen: Non-Distended Extremities: No clubbing, No cyanosis, No Calf Tenderness, - - Minimal swelling and edema is noted in the left lower extremity. The traumatic wound on the left lateral calf is much smaller in size. Dimensions are documented elsewhere. The wound is now approximately 90% healed. There is a small amount of bioburden. There is no sign of infection or cellulitis. The base of the wound is generally pink and healthy in appearance, with evidence of active granulation tissue. Skin: No rashes Wound Measurements and Assessment WC - Nurse 1 - General Ulcer Measurement Start: 06/25/18 15:30 Freq: Status: Active Protocol: Activity Type Activity Date Activity User E-Sign Co-Sign Detail Recorded Client Recorded Date Recorded By Document 07/17/18 08:54 MW [id number] 07/17/18 09:06 MW 07/17/18 08:54 Wound Center Nurse 1 [Ulcer Assessment] #1 L Vaz -Combined with other wound No -Current Size (cm) - Length 0.5 -Current Size (cm) - Width 0.4 -Current Size (cm) - Depth 0.1 -Total Square Cm 0.20 -Photo Taken No -Epithelialization Small 1-33% -Tunneling No -Undermining/Tunneling No -Circular Undermining No -Exudate Amt Small -Exudate Type Serosanguineous -Wound Margin Flat & Intact -Granulation Amt Small (1-33%) -Granulation Quality [place] -Slough/Fibrin Yes -Necrosis Amt Small (1-33%) -Necrotic Tissue Type Adherent Slough -Structure Exposed N/A -Texture ([place]et[place]-wound Skin Appearance) Assessed Localized Edema Scarring -Moisture (Ketty-wound Skin Appearance Assessed ) Dry/Scaly -Color ([place]et[place]-wound Skin Appearance) Assessed Hemosiderin Staining -Temperature ([place]et[place]-wound Skin No Abnormality Appearance) (Pt Warm) -Tenderness on Palpation ([place]et[place]-wound Yes Skin Appearance) -Ulcer Cleansing soap and water -Foul Odor after Cleansing No [Edema Assessment] -Lower Limb Edema Present Yes -Left Calf (cm) 43.5 -Left Ankle (cm) 24.6 WC - Nurse 2 - General Ulcer CM Notes Start: 06/25/18 15:30 Freq: Status: Active Protocol: Activity Type Activity Date Activity User E-Sign Co-Sign Detail Recorded Client Recorded Date Recorded By Document 07/17/18 09:11 DV [id number] 07/17/18 09:12 DV 07/17/18 09:11 Wound Center Nurse 2 [Procedure/Treatment] #1 L Vaz -Time 09:11 -Correct Patient Yes -Correct Side, Site, Position Yes -Correct Procedure Yes -Procedure Performed Yes -Type of Procedure Debridement -Clinical Debridement Subcutaneous -Post Debridement Size (cm) - Length 0.5 -Post Debridement Size (cm) - Width 0.5 -Post Debridement Size (cm) - Depth 0.1 -Total Square Cm 0.25 -Wound/Ulcer Outcome Not Healed -Ulcer Cleansing Rinsed/ Irrigated with Saline -Foul Odor after Cleansing No -Bioengineered Tissue No -Bleeding Controlled with Pressure -Treatment Response Procedure Tolerated Well [See Physician Procedure note for Specifics] Pain Scale: 0-10 Numeric [Pain] -Is Patient Pain Free? Yes Musculoskeletal: No Muscle Wasting Neurological: Cranial nerves II-XII grossly intact, Neuro grossly intact Psych/Mental Status: Normal Affect, Appropriate, Alert and oriented to time, place, person, mood and affect Debridement Note Post-Debridement Measurements/Treatment - Nurse 2 - General Ulcer CM Notes Start: 06/25/18 15:30 Freq: Status: Active Protocol: Activity Type Activity Date Activity User E-Sign Co-Sign Detail Recorded Client Recorded Date Recorded By Document 06/25/18 16:02 DV [id number] 06/25/18 16:05 DV Document 07/09/18 16:29 DV [id number] 07/09/18 16:33 DV Document 07/17/18 09:11 DV [id number] 07/17/18 09:12 DV 06/25/18 07/09/18 07/17/18 16:02 16:29 09:11 Wound Center Nurse 2 #1 L Vaz -Time 16:02 16:15 09:11 -Correct Patient Yes Yes Yes -Correct Side, Site, Position Yes Yes Yes -Correct Procedure Yes Yes Yes -Procedure Performed Yes Yes Yes -Type of Procedure Debridement Debridement Debridement -Clinical Debridement Subcutaneous Subcutaneous Subcutaneous -Post Debridement Size (cm) - Length 0.5 1.3 0.5 -Post Debridement Size (cm) - Width 0.5 1.0 0.5 -Post Debridement Size (cm) - Depth 0.1 0.1 0.1 -Total Square Cm 0.25 1.30 0.25 -Wound/Ulcer Outcome Not Healed Not Healed Not Healed -Ulcer Cleansing Rinsed/ Rinsed/ Rinsed/ Irrigated with Irrigated with Irrigated with Saline Saline Saline -Foul Odor after Cleansing No No No -Bioengineered Tissue Yes Yes No -Type of bioengineered Tissue GRAFIX-Pime GRAFIX-Pime -Expiration Date 04/14/19 05/15/19 -Product Lot Number [id number] -Percent Used 100 100 -Saline Lot Number [id number] -Topical Lidocaine (%) 5 5 -Bleeding Controlled with Pressure Pressure Pressure -Offloading No No -Treatment Response Procedure Procedure Procedure Tolerated Well Tolerated Well Tolerated Well Pain Scale: 0-10 Numeric Is Patient Pain Free? Yes Yes Yes Laterality: Left - Lateral calf Type of Debridement: Excisional debridement Anesthesia Used: 5% Lidocaine Gel Depth: Down to and including healthy tissue, in the subcutaneous layer Percentage of wound debrided: 100 Instrument Used: 3mm curette Tissue Removed: Bioburden and senescent material Severity: Fat Layer Exposed Amount of bleeding with debridement: Mild Bleeding Controlled with: Compression and gauze Patient tolerated procedure well Assessment/Plan Active Problems Traumatic open wound of lower leg (Chronic) Leg swelling (Chronic) Edema of leg (Chronic) Diabetes mellitus (Chronic) Morbid obesity with BMI of 45.0-49.9, adult (Chronic) Assessment: This is a 57-year-old female who presented with a traumatic wound on the anterolateral aspect of the left calf. The injury occurred approximately 2 months prior to presentation, and has failed to heal appropriately. The patient presented with ralph, nonviable tissue within the wound itself. She is known to be a diabetic. Patient has undergone a battery of diagnostic tests, with results as follows: Glucose 150, sodium 140, potassium 4.8, chloride 103, BUN 15, creatinine 0.80, calcium 9.5, total protein 6.7, albumin 3.9, alkaline phosphatase 61, AST 20, ALT 35, hemoglobin A1c 8.3, white blood count 6.2, hemoglobin 14.2, hematocrit 41.1, platelets 253,000. The patient's prior cultures were positive for Klebsiella pneumonia, pseudomonas aeruginosa, and Streptococcus. She was placed on Levaquin 750 mg p.o. daily for a total of 10 days, and completed her course. Recently, another culture was positive for Pseudomonas. The patient has completed another prescription for Levaquin 750 mg p.o. daily for 10 days. A noninvasive lower extremity arterial study is normal, revealing triphasic waveforms at ankle level bilaterally, normal resting ankle?brachial indices bilaterally, and normal digital-brachial indices bilaterally. A venous duplex examination reveals incompetence of the left great saphenous vein below the knee. The left small saphenous vein appears competent. The patient has shown significant improvement in recent weeks, with progressive decrease in the size of her wound. Plan: The patient has shown good progress. Only a very small area remains yet to heal and epithelialize, approximately 10% of the original wound surface. Grafix PL Prime allograft is not available today. Therefore, we are to implement the use of Promogran, which will be applied topically by the patient every day or 2. The patient is to continue elevating her legs as much as possible. Compression is to be continued as previously, using double layer Tubigrip's. The patient will return in 1 week for reassessment. A noninvasive lower extremity arterial study is normal. We will continue the use of TubiGrip compression to the left lower extremity to assist in the control of swelling and edema. She is to use a double layer Tubigrip on the left lower extremity. She has also been encouraged to elevate her lower extremities as much as possible, and to avoid prolonged idle sitting. The patient has been encouraged to assure adequate nutrition. Optimizing glycemic control has also been advised. The patient will return in 1 week for reassessment. Influenza vaccine was not administered today. The patient is not a smoker. Patient weighs 265 pounds. She stands 5 feet 4 inches tall. Her BMI is 45.5, which places her in a class III category. Weight loss has been recommended, and collaboration with the patient's primary care physician has been recommended.
--- NOTE | 2018-07-17 09:18 | HP.PCM_ITS ---
(1) Traumatic open wound of lower leg Status: Chronic Current Visit: Yes Qualifiers: Encounter type: subsequent encounter Laterality: left Qualified Code(s): S81.802D - Unspecified open wound, left lower leg, subsequent encounter Code(s): S81.809A - Unspecified open wound, unspecified lower leg, initial encounter (2) Leg swelling Status: Chronic Current Visit: Yes Code(s): M79.89 - Other specified soft tissue disorders (3) Edema of leg Status: Chronic Current Visit: Yes Code(s): R60.0 - Localized edema (4) Diabetes mellitus Status: Chronic Current Visit: Yes Qualifiers: Diabetes mellitus type: type 2 Code(s): E11.9 - Type 2 diabetes mellitus without complications (5) Morbid obesity with BMI of 45.0-49.9, adult Status: Chronic Current Visit: Yes Code(s): E66.01 - Morbid (severe) obesity due to excess calories; Z68.42 - Body mass index (BMI) 45.0-49.9, adult (6) COPD (chronic obstructive pulmonary disease) Status: Chronic Current Visit: No Code(s): J44.9 - Chronic obstructive pulmonary disease, unspecified (7) Coronary artery arteriosclerosis Status: Chronic Current Visit: No Code(s): I25.10 - Atherosclerotic heart disease of [place] coronary artery without angina pectoris History of Present Illness Chief Complaint: Traumatic open wound of the left lower extremity History of Wound: This is a 57-year-old diabetic female who was in her normal state of health until approximately 2 months prior to presentation. At that time, she sustained trauma to the anterolateral aspect of the left calf, striking her leg against the bed frame. A wound resulted, which has failed to heal in normal fashion. She subsequently struck her leg against the bed frame a second time, again injuring the left lower extremity in the same location. She claims to have chronic swelling in the left lower extremity, that precedes her current injury. She sleeps in a recumbent position at night. 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 Past Medical History Past Medical History: Chronic Problems Traumatic open wound of lower leg (Chronic) Leg swelling (Chronic) Edema of leg (Chronic) Diabetes mellitus (Chronic) Morbid obesity with BMI of 45.0-49.9, adult (Chronic) COPD (chronic obstructive pulmonary disease) (Chronic) Coronary artery arteriosclerosis (Chronic) Surgical History: - - The patient has a history of coronary artery stent placement. She has undergone open reduction and internal fixation of a left tibia fracture. She underwent right meniscus repair in the past. She is a Ab0. Allergies/Adverse Reactions: Allergies No Known Allergies Allergy (Verified 09/03/13 11:12) Home Medications: Ambulatory Orders Medication Instructions Recorded Aspirin E.C. [Ecotrin] 81 mg PO DAILY@0800 09/03/13 Hydrocodone/Acetaminophen [Vicodin 1 - 2 tablet PO Q6H PRN PRN 09/03/13 5-300 mg Tablet] Lisinopril 10 mg PO DAILY 09/03/13 Metformin [Metformin HCl] 1,000 mg PO BID 09/03/13 Metoprolol Tartrate 50 mg PO DAILY 09/03/13 Dulaglutide [Trulicity] 0.75 mg SQ 01/02/18 Fluticasone/Vilanterol [Breo 1 each IH 01/02/18 Ellipta 200-25 Mcg INH] Insulin Glargine,Hum.rec.anlog 56 unit BID 01/02/18 [Lantus] Sitagliptin Phosphate [Januvia] 25 mg PO DAILY 01/02/18 Tiotropium [place] [Spiriva] 18 mcg IH 01/02/18 - Family History Paternal - - The patient's father at the age of 78 with history of chronic obstructive pulmonary disease. The patient's mother at the age of 84 with history of chronic obstructive pulmonary disease. Smoking Status: Former smoker Tobacco Use: Non-smoker Review of Systems Constitutional: Denies: Chills, Fever, Weight Change Eyes: Denies: Pain, Vision Change HEENT: Denies: Difficulty Hearing, Difficulty Swallowing, Sinus Congestion Cardiovascular: Denies: Chest Pain, Palpitations Respiratory: Denies: Cough, Shortness of Breath Gastrointestinal: Denies: Diarrhea, Nausea, Vomiting Genitourinary: Denies: Dysuria, Hematuria Endocrine: Denies: Heat/ Cold Intolerance, Polydipsia, Polyuria Hematologic/ Lymphatic: Denies: Easy Bruising, Easy Bleeding - Physical Exam Vital Signs Temp Pulse Resp BP Pulse Ox 97.8 F 107 H 18 163/85 H 94 07/17/18 08:54 07/17/18 08:54 07/17/18 08:54 07/17/18 08:54 06/22/18 00:47 General: Alert, Oriented x3, Cooperative, No apparent distress, Well developed, Well nourished HEENT: Atraumatic, PERRLA, EOMI, Normocephalic Oral: Moist Mucosa Neck: No JVD Lungs: Normal air movement Abdomen: Non-Distended Extremities: No clubbing, No cyanosis, No Calf Tenderness, - - Minimal swelling and edema is noted in the left lower extremity. The traumatic wound on the left lateral calf is much smaller in size. Dimensions are documented elsewhere. The wound is now approximately 90% healed. There is a small amount of bioburden. There is no sign of infection or cellulitis. The base of the wound is generally pink and healthy in appearance, with evidence of active granulation tissue. Skin: No rashes Wound Measurements and Assessment WC - Nurse 1 - General Ulcer Measurement Start: 06/25/18 15:30 Freq: Status: Active Protocol: Activity Type Activity Date Activity User E-Sign Co-Sign Detail Recorded Client Recorded Date Recorded By Document 07/17/18 08:54 MW [id number] 07/17/18 09:06 MW 07/17/18 08:54 Wound Center Nurse 1 [Ulcer Assessment] #1 L Vaz -Combined with other wound No -Current Size (cm) - Length 0.5 -Current Size (cm) - Width 0.4 -Current Size (cm) - Depth 0.1 -Total Square Cm 0.20 -Photo Taken No -Epithelialization Small 1-33% -Tunneling No -Undermining/Tunneling No -Circular Undermining No -Exudate Amt Small -Exudate Type Serosanguineous -Wound Margin Flat & Intact -Granulation Amt Small (1-33%) -Granulation Quality [place] -Slough/Fibrin Yes -Necrosis Amt Small (1-33%) -Necrotic Tissue Type Adherent Slough -Structure Exposed N/A -Texture (Ketty-wound Skin Appearance) Assessed Localized Edema Scarring -Moisture (Ketty-wound Skin Appearance Assessed ) Dry/Scaly -Color (Ketty-wound Skin Appearance) Assessed Hemosiderin Staining -Temperature (Ketty-wound Skin No Abnormality Appearance) (Pt Warm) -Tenderness on Palpation (Ketty-wound Yes Skin Appearance) -Ulcer Cleansing soap and water -Foul Odor after Cleansing No [Edema Assessment] -Lower Limb Edema Present Yes -Left Calf (cm) 43.5 -Left Ankle (cm) 24.6 WC - Nurse 2 - General Ulcer CM Notes Start: 06/25/18 15:30 Freq: Status: Active Protocol: Activity Type Activity Date Activity User E-Sign Co-Sign Detail Recorded Client Recorded Date Recorded By Document 07/17/18 09:11 DV [id number] 07/17/18 09:12 DV 07/17/18 09:11 Wound Center Nurse 2 [Procedure/Treatment] #1 L Vaz -Time 09:11 -Correct Patient Yes -Correct Side, Site, Position Yes -Correct Procedure Yes -Procedure Performed Yes -Type of Procedure Debridement -Clinical Debridement Subcutaneous -Post Debridement Size (cm) - Length 0.5 -Post Debridement Size (cm) - Width 0.5 -Post Debridement Size (cm) - Depth 0.1 -Total Square Cm 0.25 -Wound/Ulcer Outcome Not Healed -Ulcer Cleansing Rinsed/ Irrigated with Saline -Foul Odor after Cleansing No -Bioengineered Tissue No -Bleeding Controlled with Pressure -Treatment Response Procedure Tolerated Well [See Physician Procedure note for Specifics] Pain Scale: 0-10 Numeric [Pain] -Is Patient Pain Free? Yes Musculoskeletal: No Muscle Wasting Neurological: Cranial nerves II-XII grossly intact, Neuro grossly intact Psych/Mental Status: Normal Affect, Appropriate, Alert and oriented to time, place, person, mood and affect Debridement Note Post-Debridement Measurements/Treatment - Nurse 2 - General Ulcer CM Notes Start: 06/25/18 15:30 Freq: Status: Active Protocol: Activity Type Activity Date Activity User E-Sign Co-Sign Detail Recorded Client Recorded Date Recorded By Document 06/25/18 16:02 DV [id number] 06/25/18 16:05 DV Document 07/09/18 16:29 DV [id number] 07/09/18 16:33 DV Document 07/17/18 09:11 DV [id number] 07/17/18 09:12 DV 06/25/18 07/09/18 07/17/18 16:02 16:29 09:11 Wound Center Nurse 2 #1 L Vaz -Time 16:02 16:15 09:11 -Correct Patient Yes Yes Yes -Correct Side, Site, Position Yes Yes Yes -Correct Procedure Yes Yes Yes -Procedure Performed Yes Yes Yes -Type of Procedure Debridement Debridement Debridement -Clinical Debridement Subcutaneous Subcutaneous Subcutaneous -Post Debridement Size (cm) - Length 0.5 1.3 0.5 -Post Debridement Size (cm) - Width 0.5 1.0 0.5 -Post Debridement Size (cm) - Depth 0.1 0.1 0.1 -Total Square Cm 0.25 1.30 0.25 -Wound/Ulcer Outcome Not Healed Not Healed Not Healed -Ulcer Cleansing Rinsed/ Rinsed/ Rinsed/ Irrigated with Irrigated with Irrigated with Saline Saline Saline -Foul Odor after Cleansing No No No -Bioengineered Tissue Yes Yes No -Type of bioengineered Tissue GRAFIX-Pime GRAFIX-Pime -Expiration Date 04/14/19 05/15/19 -Product Lot Number [id number] -Percent Used 100 100 -Saline Lot Number [id number] -Topical Lidocaine (%) 5 5 -Bleeding Controlled with Pressure Pressure Pressure -Offloading No No -Treatment Response Procedure Procedure Procedure Tolerated Well Tolerated Well Tolerated Well Pain Scale: 0-10 Numeric Is Patient Pain Free? Yes Yes Yes Laterality: Left - Lateral calf Type of Debridement: Excisional debridement Anesthesia Used: 5% Lidocaine Gel Depth: Down to and including healthy tissue, in the subcutaneous layer Percentage of wound debrided: 100 Instrument Used: 3mm curette Tissue Removed: Bioburden and senescent material Severity: Fat Layer Exposed Amount of bleeding with debridement: Mild Bleeding Controlled with: Compression and gauze Patient tolerated procedure well Assessment/Plan Active Problems Traumatic open wound of lower leg (Chronic) Leg swelling (Chronic) Edema of leg (Chronic) Diabetes mellitus (Chronic) Morbid obesity with BMI of 45.0-49.9, adult (Chronic) Assessment: This is a 57-year-old female who presented with a traumatic wound on the anterolateral aspect of the left calf. The injury occurred approximately 2 months prior to presentation, and has failed to heal appropriately. The patient presented with ralph, nonviable tissue within the wound itself. She is known to be a diabetic. Patient has undergone a battery of diagnostic tests, with results as follows: Glucose 150, sodium 140, potassium 4.8, chloride 103, BUN 15, creatinine 0.80, calcium 9.5, total protein 6.7, albumin 3.9, alkaline phosphatase 61, AST 20, ALT 35, hemoglobin A1c 8.3, white blood count 6.2, hemoglobin 14.2, hematocrit 41.1, platelets 253,000. The patient's prior cultures were positive for Klebsiella pneumonia, pseudomonas aeruginosa, and Streptococcus. She was placed on Levaquin 750 mg p.o. daily for a total of 10 days, and completed her course. Recently, another culture was positive for Pseudomonas. The patient has completed another prescription for Levaquin 750 mg p.o. daily for 10 days. A noninvasive lower extremity arterial study is normal, revealing triphasic waveforms at ankle level bilaterally, normal resting ankle?brachial indices bilaterally, and normal digital-brachial indices bilaterally. A venous duplex examination reveals incompetence of the left great saphenous vein below the knee. The left small saphenous vein appears competent. The patient has shown significant improvement in recent weeks, with progressive decrease in the size of her wound. Plan: The patient has shown good progress. Only a very small area remains yet to heal and epithelialize, approximately 10% of the original wound surface. Grafix PL Prime allograft is not available today. Therefore, we are to implement the use of Promogran, which will be applied topically by the patient every day or 2. The patient is to continue elevating her legs as much as possible. Compression is to be continued as previously, using double layer Tubigrip's. The patient will return in 1 week for reassessment. A noninvasive lower extremity arterial study is normal. We will continue the use of TubiGrip compression to the left lower extremity to assist in the control of swelling and edema. She is to use a double layer Tubigrip on the left lower extremity. She has also been encouraged to elevate her lower extremities as much as possible, and to avoid prolonged idle sitting. The patient has been encouraged to assure adequate nutrition. Optimizing glycemic control has also been advised. The patient will return in 1 week for reassessment. Influenza vaccine was not administered today. The patient is not a smoker. Patient weighs 265 pounds. She stands 5 feet 4 inches tall. Her BMI is 45.5, which places her in a class III category. Weight loss has been recommended, and collaboration with the patient's primary care physician has been recommended.
== END 2018-07-22 23:59 ==
LOC: WC 08:45
PROVIDERS: Family Provider Nurse Practitioner Primary Care; PCP Nurse Practitioner Primary Care; Referring Provider Surgery; Visit Provider Surgery
DX: S81.832A Puncture wound without foreign body, left lower leg, initial encounter (principal); W22.03XA Walked into furniture, initial encounter; I25.10 Atherosclerotic heart disease of native coronary artery without angina pectoris; M79.89 Other specified soft tissue disorders; E11.9 Type 2 diabetes mellitus without complications; J44.9 Chronic obstructive pulmonary disease, unspecified; E66.01 Morbid (severe) obesity due to excess calories; Z68.42 Body mass index [BMI] 45.0-49.9, adult; Z71.3 Dietary counseling and surveillance; R60.0 Localized edema; Z95.5 Presence of coronary angioplasty implant and graft; Z79.82 Long term (current) use of aspirin; Z79.4 Long term (current) use of insulin; Z79.899 Other long term (current) drug therapy; Z87.891 Personal history of nicotine dependence
CPT/HCPCS: 11042; 15271; 99212; Q4133; G0463

== ENCOUNTER 2018-08-20 15:30 | Outpatient (RCR) | payer OTHER, SELFPAY ==
[2018-07-23 00:43] VITALS: BP 163/85; PULSE 107; RESP 18; TEMP 36.6; O2SAT 94
[2018-07-23 15:25] VITALS: BP 153/78; PULSE 92; RESP 16; TEMP 36.8; BMI 46.1
--- NOTE | 2018-07-23 16:11 | HP.PCM_ITS ---
(1) Traumatic open wound of lower leg Status: Chronic Qualifiers: Encounter type: subsequent encounter Laterality: left Qualified Code(s): S81.802D - Unspecified open wound, left lower leg, subsequent encounter Code(s): S81.809A - Unspecified open wound, unspecified lower leg, initial encounter (2) Leg swelling Status: Chronic Code(s): M79.89 - Other specified soft tissue disorders (3) Edema of leg Status: Chronic Code(s): R60.0 - Localized edema (4) Diabetes mellitus Status: Chronic Qualifiers: Diabetes mellitus type: type 2 Code(s): E11.9 - Type 2 diabetes mellitus without complications (5) Morbid obesity with BMI of 45.0-49.9, adult Status: Chronic Code(s): E66.01 - Morbid (severe) obesity due to excess calories; Z68.42 - Body mass index (BMI) 45.0-49.9, adult (6) COPD (chronic obstructive pulmonary disease) Status: Chronic Code(s): J44.9 - Chronic obstructive pulmonary disease, unspecified (7) Coronary artery arteriosclerosis Status: Chronic Code(s): I25.10 - Atherosclerotic heart disease of [place] coronary artery without angina pectoris History of Present Illness Chief Complaint: Traumatic open wound of the left lower extremity History of Wound: This is a 57-year-old diabetic female who was in her normal state of health until approximately 2 months prior to presentation. At that time, she sustained trauma to the anterolateral aspect of the left calf, striking her leg against the bed frame. A wound resulted, which has failed to heal in normal fashion. She subsequently struck her leg against the bed frame a second time, again injuring the left lower extremity in the same location. She claims to have chronic swelling in the left lower extremity, that precedes her current injury. She sleeps in a recumbent position at night. 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 Past Medical History Past Medical History: Chronic Problems Traumatic open wound of lower leg (Chronic) Leg swelling (Chronic) Edema of leg (Chronic) Diabetes mellitus (Chronic) Morbid obesity with BMI of 45.0-49.9, adult (Chronic) COPD (chronic obstructive pulmonary disease) (Chronic) Coronary artery arteriosclerosis (Chronic) Surgical History: - - The patient has a history of coronary artery stent placement. She has undergone open reduction and internal fixation of a left tibia fracture. She underwent right meniscus repair in the past. She is a Ab0. Allergies/Adverse Reactions: Allergies No Known Allergies Allergy (Verified 09/03/13 11:12) Home Medications: Ambulatory Orders Medication Instructions Recorded Aspirin E.C. [Ecotrin] 81 mg PO DAILY@0800 09/03/13 Hydrocodone/Acetaminophen [Vicodin 1 - 2 tablet PO Q6H PRN PRN 09/03/13 5-300 mg Tablet] Lisinopril 10 mg PO DAILY 09/03/13 Metformin [Metformin HCl] 1,000 mg PO BID 09/03/13 Metoprolol Tartrate 50 mg PO DAILY 09/03/13 Dulaglutide [Trulicity] 0.75 mg SQ 01/02/18 Fluticasone/Vilanterol [Breo 1 each IH 01/02/18 Ellipta 200-25 Mcg INH] Insulin Glargine,Hum.rec.anlog 56 unit BID 01/02/18 [Lantus] Sitagliptin Phosphate [Januvia] 25 mg PO DAILY 01/02/18 Tiotropium [place] [Spiriva] 18 mcg IH 01/02/18 - Family History Paternal - - The patient's father at the age of 78 with history of chronic obstructive pulmonary disease. The patient's mother at the age of 84 with history of chronic obstructive pulmonary disease. Smoking Status: Former smoker Tobacco Use: Non-smoker Review of Systems Constitutional: Denies: Chills, Fever, Weight Change Eyes: Denies: Pain, Vision Change HEENT: Denies: Difficulty Hearing, Difficulty Swallowing, Sinus Congestion Cardiovascular: Denies: Chest Pain, Palpitations Respiratory: Denies: Cough, Shortness of Breath Gastrointestinal: Denies: Diarrhea, Nausea, Vomiting Genitourinary: Denies: Dysuria, Hematuria Endocrine: Denies: Heat/ Cold Intolerance, Polydipsia, Polyuria Hematologic/ Lymphatic: Denies: Easy Bruising, Easy Bleeding - Physical Exam Vital Signs Temp Pulse Resp BP Pulse Ox 98.2 F 92 16 153/78 H 94 07/23/18 15:25 07/23/18 15:25 07/23/18 15:25 07/23/18 15:25 07/23/18 00:43 General: Alert, Oriented x3, Cooperative, No apparent distress, Well developed, Well nourished HEENT: Atraumatic, PERRLA, EOMI, Normocephalic Oral: Moist Mucosa Neck: No JVD Lungs: Normal air movement Abdomen: Non-Distended Extremities: No clubbing, No cyanosis, No Calf Tenderness, - - Only minimal swelling and edema is noted in the lower extremity. The ulceration on the left lateral calf continues to diminish in size. Dimensions are documented elsewhere. There is a mild amount of bioburden. There is no sign of infection or cellulitis. Skin: No rashes Wound Measurements and Assessment WC - Nurse 1 - General Ulcer Measurement Start: 07/23/18 15:25 Freq: Status: Active Protocol: Activity Type Activity Date Activity User E-Sign Co-Sign Detail Recorded Client Recorded Date Recorded By Document 07/23/18 15:25 JOSE [id number] 07/23/18 15:30 JOSE 07/23/18 15:25 Wound Center Nurse 1 [Ulcer Assessment] #1 L Vaz -Combined with other wound No -Current Size (cm) - Length 0.4 -Current Size (cm) - Width 0.5 -Current Size (cm) - Depth 0.1 -Total Square Cm 0.20 -Photo Taken No -Epithelialization Medium 34-66% -Tunneling No -Undermining/Tunneling No -Circular Undermining No -Exudate Amt None Present -Wound Margin Flat & Intact -Granulation Amt Large (67-100%) -Granulation Quality [place] -Slough/Fibrin Yes -Necrosis Amt Small (1-33%) -Necrotic Tissue Type Adherent Slough -Structure Exposed N/A -Texture (Ketty-wound Skin Appearance) Assessed Localized Edema -Moisture (Ketty-wound Skin Appearance Assessed ) Dry/Scaly -Color (Ketty-wound Skin Appearance) Assessed -Temperature (Ketty-wound Skin No Abnormality Appearance) (Pt Warm) -Tenderness on Palpation (Ketty-wound No Skin Appearance) -Ulcer Cleansing Rinsed/ Irrigated with Saline -Foul Odor after Cleansing No -Anesthetic Used 5% Lidocaine Gel [Edema Assessment] -Lower Limb Edema Present Yes -Left Calf (cm) 43.2 -Left Ankle (cm) 24.2 WC - Nurse 2 - General Ulcer CM Notes Start: 07/23/18 15:25 Freq: Status: Active Protocol: Activity Type Activity Date Activity User E-Sign Co-Sign Detail Recorded Client Recorded Date Recorded By Document 07/23/18 16:00 DV [id number] 07/23/18 16:03 DV 07/23/18 16:00 Wound Center Nurse 2 [Procedure/Treatment] #1 L Vaz -Time 16:02 -Correct Patient Yes -Correct Side, Site, Position Yes -Correct Procedure Yes -Procedure Performed Yes -Type of Procedure Debridement -Clinical Debridement Subcutaneous -Post Debridement Size (cm) - Length 0.3 -Post Debridement Size (cm) - Width 0.3 -Post Debridement Size (cm) - Depth 0.1 -Total Square Cm 0.09 -Wound/Ulcer Outcome Not Healed -Ulcer Cleansing Rinsed/ Irrigated with Saline -Foul Odor after Cleansing No -Bioengineered Tissue No -Bleeding Controlled with Pressure -Offloading No -Treatment Response Procedure Tolerated Well [See Physician Procedure note for Specifics] Pain Scale: 0-10 Numeric [Pain] -Is Patient Pain Free? Yes Musculoskeletal: No Muscle Wasting Neurological: Cranial nerves II-XII grossly intact, Neuro grossly intact Psych/Mental Status: Normal Affect, Appropriate, Alert and oriented to time, place, person, mood and affect Debridement Note Post-Debridement Measurements/Treatment WC - Nurse 2 - General Ulcer CM Notes Start: 07/23/18 15:25 Freq: Status: Active Protocol: Activity Type Activity Date Activity User E-Sign Co-Sign Detail Recorded Client Recorded Date Recorded By Document 07/23/18 16:00 DV [id number] 07/23/18 16:03 DV 07/23/18 16:00 Wound Center Nurse 2 #1 L Vaz -Time 16:02 -Correct Patient Yes -Correct Side, Site, Position Yes -Correct Procedure Yes -Procedure Performed Yes -Type of Procedure Debridement -Clinical Debridement Subcutaneous -Post Debridement Size (cm) - Length 0.3 -Post Debridement Size (cm) - Width 0.3 -Post Debridement Size (cm) - Depth 0.1 -Total Square Cm 0.09 -Wound/Ulcer Outcome Not Healed -Ulcer Cleansing Rinsed/ Irrigated with Saline -Foul Odor after Cleansing No -Bioengineered Tissue No -Bleeding Controlled with Pressure -Offloading No -Treatment Response Procedure Tolerated Well Pain Scale: 0-10 Numeric Is Patient Pain Free? Yes Laterality: Left - Lateral calf Type of Debridement: Excisional debridement Anesthesia Used: 5% Lidocaine Gel Depth: Down to and including healthy tissue, in the subcutaneous layer Percentage of wound debrided: 100 Instrument Used: 3mm curette Severity: Fat Layer Exposed Amount of bleeding with debridement: Mild Bleeding Controlled with: Compression and gauze Patient tolerated procedure well Assessment/Plan Assessment: This is a 57-year-old female who presented with a traumatic wound on the anterolateral aspect of the left calf. The injury occurred approximately 2 months prior to presentation, and has failed to heal appropriately. The patient presented with ralph, nonviable tissue within the wound itself. She is known to be a diabetic. Patient has undergone a battery of diagnostic tests, with results as follows: Glucose 150, sodium 140, potassium 4.8, chloride 103, BUN 15, creatinine 0.80, calcium 9.5, total protein 6.7, albumin 3.9, alkaline phosphatase 61, AST 20, ALT 35, hemoglobin A1c 8.3, white blood count 6.2, hemoglobin 14.2, hematocrit 41.1, platelets 253,000. The patient's prior cultures were positive for Klebsiella pneumonia, pseudomonas aeruginosa, and Streptococcus. She was placed on Levaquin 750 mg p.o. daily for a total of 10 days, and completed her course. Recently, another culture was positive for Pseudomonas. The patient has completed another prescription for Levaquin 750 mg p.o. daily for 10 days. A noninvasive lower extremity arterial study was normal, revealing triphasic waveforms at ankle level bilaterally, normal resting ankle?brachial indices bilaterally, and normal digital-brachial indices bilaterally. A venous duplex examination reveals incompetence of the left great saphenous vein below the knee. The left small saphenous vein appears competent. The patient has shown significant improvement in recent weeks, with progressive decrease in the size of her wound. Plan: The patient has shown good progress. Only a very small area remains yet to heal and epithelialize, approximately 10% of the original wound surface. We are to continue the use of Promogran, which will be applied topically by the patient every day or 2. The patient is to continue elevating her legs as much as possible. Compression is to be continued as previously, using double layer Tubigrip's. The patient will return in 1 week for reassessment. A noninvasive lower extremity arterial study is normal. We will continue the use of TubiGrip compression to the left lower extremity to assist in the control of swelling and edema. She is to use a double layer Tubigrip on the left lower extremity. She has also been encouraged to elevate her lower extremities as much as possible, and to avoid prolonged idle sitting. The patient has been encouraged to assure adequate nutrition. Optimizing glycemic control has also been advised. The patient will return in 1 week for reassessment. Influenza vaccine was not administered today. The patient is not a smoker. Patient weighs 265 pounds. She stands 5 feet 4 inches tall. Her BMI is 45.5, which places her in a class III category. Weight loss has been recommended, and collaboration with the patient's primary care physician has been recommended.
[2018-07-30 15:28] VITALS: BP 138/88; PULSE 122; RESP 20; TEMP 37.3; BMI 46.1
--- NOTE | 2018-07-30 15:56 | HP.PCM_ITS ---
(1) Traumatic open wound of lower leg Status: Chronic Current Visit: Yes Qualifiers: Encounter type: subsequent encounter Laterality: left Qualified Code(s): S81.802D - Unspecified open wound, left lower leg, subsequent encounter Code(s): S81.809A - Unspecified open wound, unspecified lower leg, initial encounter (2) Leg swelling Status: Chronic Current Visit: Yes Code(s): M79.89 - Other specified soft tissue disorders (3) Edema of leg Status: Chronic Current Visit: Yes Code(s): R60.0 - Localized edema (4) Diabetes mellitus Status: Chronic Current Visit: No Qualifiers: Diabetes mellitus type: type 2 Code(s): E11.9 - Type 2 diabetes mellitus without complications (5) Morbid obesity with BMI of 45.0-49.9, adult Status: Chronic Current Visit: No Code(s): E66.01 - Morbid (severe) obesity due to excess calories; Z68.42 - Body mass index (BMI) 45.0-49.9, adult (6) COPD (chronic obstructive pulmonary disease) Status: Chronic Current Visit: No Code(s): J44.9 - Chronic obstructive pulmonary disease, unspecified (7) Coronary artery arteriosclerosis Status: Chronic Current Visit: No Code(s): I25.10 - Atherosclerotic heart disease of [place] coronary artery without angina pectoris History of Present Illness Chief Complaint: Traumatic open wound of the left lower extremity History of Wound: This is a 57-year-old diabetic female who was in her normal state of health until approximately 2 months prior to presentation. At that time, she sustained trauma to the anterolateral aspect of the left calf, striking her leg against the bed frame. A wound resulted, which has failed to heal in normal fashion. She subsequently struck her leg against the bed frame a second time, again injuring the left lower extremity in the same location. She claims to have chronic swelling in the left lower extremity, that precedes her current injury. She sleeps in a recumbent position at night. 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 Past Medical History Past Medical History: Chronic Problems Traumatic open wound of lower leg (Chronic) Leg swelling (Chronic) Edema of leg (Chronic) Diabetes mellitus (Chronic) Morbid obesity with BMI of 45.0-49.9, adult (Chronic) COPD (chronic obstructive pulmonary disease) (Chronic) Coronary artery arteriosclerosis (Chronic) Surgical History: - - The patient has a history of coronary artery stent placement. She has undergone open reduction and internal fixation of a left tibia fracture. She underwent right meniscus repair in the past. She is a Ab0. Allergies/Adverse Reactions: Allergies No Known Allergies Allergy (Verified 09/03/13 11:12) Home Medications: Ambulatory Orders Medication Instructions Recorded Aspirin E.C. [Ecotrin] 81 mg PO DAILY@0800 09/03/13 Hydrocodone/Acetaminophen [Vicodin 1 - 2 tablet PO Q6H PRN PRN 09/03/13 5-300 mg Tablet] Lisinopril 10 mg PO DAILY 09/03/13 Metformin [Metformin HCl] 1,000 mg PO BID 09/03/13 Metoprolol Tartrate 50 mg PO DAILY 09/03/13 Dulaglutide [Trulicity] 0.75 mg SQ 01/02/18 Fluticasone/Vilanterol [Breo 1 each IH 01/02/18 Ellipta 200-25 Mcg INH] Insulin Glargine,Hum.rec.anlog 56 unit BID 01/02/18 [Lantus] Sitagliptin Phosphate [Januvia] 25 mg PO DAILY 01/02/18 Tiotropium [place] [Spiriva] 18 mcg IH 01/02/18 - Family History Paternal - - The patient's father at the age of 78 with history of chronic obstructive pulmonary disease. The patient's mother at the age of 84 with history of chronic obstructive pulmonary disease. Smoking Status: Former smoker Tobacco Use: Non-smoker Review of Systems Constitutional: Denies: Chills, Fever, Weight Change Eyes: Denies: Pain, Vision Change HEENT: Denies: Difficulty Hearing, Difficulty Swallowing, Sinus Congestion Cardiovascular: Denies: Chest Pain, Palpitations Respiratory: Denies: Cough, Shortness of Breath Gastrointestinal: Denies: Diarrhea, Nausea, Vomiting Genitourinary: Denies: Dysuria, Hematuria Endocrine: Denies: Heat/ Cold Intolerance, Polydipsia, Polyuria Hematologic/ Lymphatic: Denies: Easy Bruising, Easy Bleeding - Physical Exam Vital Signs Temp Pulse Resp BP Pulse Ox 99.1 F 122 H 20 H 138/88 H 94 07/30/18 15:28 07/30/18 15:28 07/30/18 15:28 07/30/18 15:28 07/23/18 00:43 General: Alert, Oriented x3, Cooperative, No apparent distress, Well developed, Well nourished HEENT: Atraumatic, PERRLA, EOMI, Normocephalic Oral: Moist Mucosa Neck: No JVD Lungs: Normal air movement Abdomen: Non-Distended, Obese Extremities: No clubbing, No cyanosis, No edema, No Calf Tenderness, - - The traumatic wound on the left lateral calf persists, but is significantly smaller in size. Dimensions are documented elsewhere. The base of the wound is pink and healthy. There is no sign of infection or cellulitis. There is only a small amount of bioburden. Skin: No rashes Wound Measurements and Assessment WC - Nurse 1 - General Ulcer Measurement Start: 07/23/18 15:25 Freq: Status: Active Protocol: Activity Type Activity Date Activity User E-Sign Co-Sign Detail Recorded Client Recorded Date Recorded By Document 07/30/18 15:28 [id number] 07/30/18 15:36 07/30/18 15:28 Wound Center Nurse 1 [Ulcer Assessment] #1 L Vaz -Current Size (cm) - Length 0.4 -Current Size (cm) - Width 0.3 -Current Size (cm) - Depth 0.1 -Total Square Cm 0.12 -Photo Taken No -Exudate Amt None Present -Wound Margin Flat & Intact -Granulation Amt Large (67-100%) -Granulation Quality [place] -Necrosis Amt None Present (0 %) -Structure Exposed N/A -Texture (Ketty-wound Skin Appearance) Localized Edema Scarring -Moisture (Ketty-wound Skin Appearance No Abnormality ) -Color (Ketty-wound Skin Appearance) Hemosiderin Staining -Temperature (Ketty-wound Skin No Abnormality Appearance) (Pt Warm) -Tenderness on Palpation (Ketty-wound No Skin Appearance) -Ulcer Cleansing Rinsed/ Irrigated with Saline -Foul Odor after Cleansing No -Anesthetic Used 4% Lidocaine Solution [Edema Assessment] -Left Calf (cm) 42 -Left Ankle (cm) 24.5 WC - Nurse 2 - General Ulcer CM Notes Start: 07/23/18 15:25 Freq: Status: Active Protocol: Activity Type Activity Date Activity User E-Sign Co-Sign Detail Recorded Client Recorded Date Recorded By Document 07/30/18 15:44 MW [id number] 07/30/18 15:47 MW 07/30/18 15:44 Wound Center Nurse 2 [Procedure/Treatment] #1 L Vaz -Time 15:46 -Correct Patient Yes -Correct Side, Site, Position Yes -Correct Procedure Yes -Procedure Performed Yes -Type of Procedure Debridement -Clinical Debridement Subcutaneous -Post Debridement Size (cm) - Length 0.4 -Post Debridement Size (cm) - Width 0.3 -Post Debridement Size (cm) - Depth 0.1 -Total Square Cm 0.12 -Ulcer Cleansing Rinsed/ Irrigated with Saline -Foul Odor after Cleansing No -Bioengineered Tissue No -Bleeding Controlled with Pressure -Offloading No -Treatment Response Procedure Tolerated Well [See Physician Procedure note for Specifics] Pain Scale: 0-10 Numeric [Pain] -Is Patient Pain Free? Yes Musculoskeletal: No Muscle Wasting Neurological: Cranial nerves II-XII grossly intact, Neuro grossly intact Psych/Mental Status: Normal Affect, Appropriate, Alert and oriented to time, place, person, mood and affect Debridement Note Post-Debridement Measurements/Treatment WC - Nurse 2 - General Ulcer CM Notes Start: 07/23/18 15:25 Freq: Status: Active Protocol: Activity Type Activity Date Activity User E-Sign Co-Sign Detail Recorded Client Recorded Date Recorded By Document 07/23/18 16:00 DV [id number] 07/23/18 16:03 DV Document 07/30/18 15:44 MW [id number] 07/30/18 15:47 MW 07/23/18 07/30/18 16:00 15:44 Wound Center Nurse 2 #1 L Vaz -Time 16:02 15:46 -Correct Patient Yes Yes -Correct Side, Site, Position Yes Yes -Correct Procedure Yes Yes -Procedure Performed Yes Yes -Type of Procedure Debridement Debridement -Clinical Debridement Subcutaneous Subcutaneous -Post Debridement Size (cm) - Length 0.3 0.4 -Post Debridement Size (cm) - Width 0.3 0.3 -Post Debridement Size (cm) - Depth 0.1 0.1 -Total Square Cm 0.09 0.12 -Wound/Ulcer Outcome Not Healed -Ulcer Cleansing Rinsed/ Rinsed/ Irrigated with Irrigated with Saline Saline -Foul Odor after Cleansing No No -Bioengineered Tissue No No -Bleeding Controlled with Pressure Pressure -Offloading No No -Treatment Response Procedure Procedure Tolerated Well Tolerated Well Pain Scale: 0-10 Numeric Is Patient Pain Free? Yes Yes Laterality: Left - Lateral calf Type of Debridement: Excisional debridement Anesthesia Used: 5% Lidocaine Gel Depth: Down to and including healthy tissue, in the subcutaneous layer Percentage of wound debrided: 100 Instrument Used: 3mm curette Severity: Fat Layer Exposed Amount of bleeding with debridement: Mild Bleeding Controlled with: Compression and gauze Patient tolerated procedure well Assessment/Plan Active Problems Traumatic open wound of lower leg (Chronic) Leg swelling (Chronic) Edema of leg (Chronic) Assessment: This is a 57-year-old female who presented with a traumatic wound on the anterolateral aspect of the left calf. The injury occurred approximately 2 months prior to presentation, and has failed to heal appropriately. The patient presented with ralph, nonviable tissue within the wound itself. She is known to be a diabetic. Patient has undergone a battery of diagnostic tests, with results as follows: Glucose 150, sodium 140, potassium 4.8, chloride 103, BUN 15, creatinine 0.80, calcium 9.5, total protein 6.7, albumin 3.9, alkaline phosphatase 61, AST 20, ALT 35, hemoglobin A1c 8.3, white blood count 6.2, hemoglobin 14.2, hematocrit 41.1, platelets 253,000. The patient's prior cultures were positive for Klebsiella pneumonia, pseudomonas aeruginosa, and Streptococcus. She was placed on Levaquin 750 mg p.o. daily for a total of 10 days, and completed her course. Recently, another culture was positive for Pseudomonas. The patient has completed another prescription for Levaquin 750 mg p.o. daily for 10 days. A noninvasive lower extremity arterial study was normal, revealing triphasic waveforms at ankle level bilaterally, normal resting ankle?brachial indices bilaterally, and normal digital-brachial indices bilaterally. A venous duplex examination reveals incompetence of the left great saphenous vein below the knee. The left small saphenous vein appears competent. The patient has shown significant improvement in recent weeks, with progressive decrease in the size of her wound. Plan: The patient has shown good progress. Only a very small area remains yet to heal and epithelialize, approximately 5-8% of the original wound surface. We are to continue the use of Promogran, which will be applied topically by the patient every day or 2, and gently moistened. Adaptic will also be applied. The patient is to continue elevating her legs as much as possible. Compression is to be continued as previously, using double layer Tubigrip's. The patient will return in 1 week for reassessment. A noninvasive lower extremity arterial study is normal. We will continue the use of TubiGrip compression to the left lower extremity to assist in the control of swelling and edema. She is to use a double layer Tubigrip on the left lower extremity. She has also been encouraged to elevate her lower extremities as much as possible, and to avoid prolonged idle sitting. The patient has been encouraged to assure adequate nutrition. Optimizing glycemic control has also been advised. The patient will return in 1 week for reassessment. Influenza vaccine was not administered today. The patient is not a smoker. Patient weighs 265 pounds. She stands 5 feet 4 inches tall. Her BMI is 45.5, which places her in a class III category. Weight loss has been recommended, and collaboration with the patient's primary care physician has been recommended.
[2018-08-06 15:31] VITALS: BP 148/85; PULSE 84; RESP 18; TEMP 36.6; BMI 46.1
--- NOTE | 2018-08-06 16:20 | PCM.WC.HP ---
(1) Traumatic open wound of lower leg Status: Chronic Current Visit: Yes Qualifiers: Encounter type: subsequent encounter Laterality: left Qualified Code(s): S81.802D - Unspecified open wound, left lower leg, subsequent encounter Code(s): S81.809A - Unspecified open wound, unspecified lower leg, initial encounter (2) Leg swelling Status: Chronic Current Visit: Yes Code(s): M79.89 - Other specified soft tissue disorders (3) Edema of leg Status: Chronic Current Visit: Yes Code(s): R60.0 - Localized edema (4) Diabetes mellitus Status: Chronic Current Visit: No Qualifiers: Diabetes mellitus type: type 2 Code(s): E11.9 - Type 2 diabetes mellitus without complications (5) Morbid obesity with BMI of 45.0-49.9, adult Status: Chronic Current Visit: No Code(s): E66.01 - Morbid (severe) obesity due to excess calories; Z68.42 - Body mass index (BMI) 45.0-49.9, adult (6) COPD (chronic obstructive pulmonary disease) Status: Chronic Current Visit: No Code(s): J44.9 - Chronic obstructive pulmonary disease, unspecified (7) Coronary artery arteriosclerosis Status: Chronic Current Visit: No Code(s): I25.10 - Atherosclerotic heart disease of [place] coronary artery without angina pectoris History of Present Illness Chief Complaint: Traumatic open wound of the left lower extremity History of Wound: This is a 57-year-old diabetic female who was in her normal state of health until approximately 2 months prior to presentation. At that time, she sustained trauma to the anterolateral aspect of the left calf, striking her leg against the bed frame. A wound resulted, which has failed to heal in normal fashion. She subsequently struck her leg against the bed frame a second time, again injuring the left lower extremity in the same location. She claims to have chronic swelling in the left lower extremity, that precedes her current injury. She sleeps in a recumbent position at night. 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 Past Medical History Past Medical History: Chronic Problems Traumatic open wound of lower leg (Chronic) Leg swelling (Chronic) Edema of leg (Chronic) Diabetes mellitus (Chronic) Morbid obesity with BMI of 45.0-49.9, adult (Chronic) COPD (chronic obstructive pulmonary disease) (Chronic) Coronary artery arteriosclerosis (Chronic) Surgical History: - - The patient has a history of coronary artery stent placement. She has undergone open reduction and internal fixation of a left tibia fracture. She underwent right meniscus repair in the past. She is a Ab0. Allergies/Adverse Reactions: Allergies No Known Allergies Allergy (Verified 09/03/13 11:12) Home Medications: Ambulatory Orders Medication Instructions Recorded Aspirin E.C. [Ecotrin] 81 mg PO DAILY@0800 09/03/13 Hydrocodone/Acetaminophen [Vicodin 1 - 2 tablet PO Q6H PRN PRN 09/03/13 5-300 mg Tablet] Lisinopril 10 mg PO DAILY 09/03/13 Metformin [Metformin HCl] 1,000 mg PO BID 09/03/13 Metoprolol Tartrate 50 mg PO DAILY 09/03/13 Dulaglutide [Trulicity] 0.75 mg SQ 01/02/18 Fluticasone/Vilanterol [Breo 1 each IH 01/02/18 Ellipta 200-25 Mcg INH] Insulin Glargine,Hum.rec.anlog 56 unit BID 01/02/18 [Lantus] Sitagliptin Phosphate [Januvia] 25 mg PO DAILY 01/02/18 Tiotropium [place] [Spiriva] 18 mcg IH 01/02/18 - Family History Paternal - - The patient's father at the age of 78 with history of chronic obstructive pulmonary disease. The patient's mother at the age of 84 with history of chronic obstructive pulmonary disease. Smoking Status: Former smoker Tobacco Use: Non-smoker Review of Systems Constitutional: Denies: Chills, Fever, Weight Change Eyes: Denies: Pain, Vision Change HEENT: Denies: Difficulty Hearing, Difficulty Swallowing, Sinus Congestion Cardiovascular: Denies: Chest Pain, Palpitations Respiratory: Denies: Cough, Shortness of Breath Gastrointestinal: Denies: Diarrhea, Nausea, Vomiting Genitourinary: Denies: Dysuria, Hematuria Endocrine: Denies: Heat/ Cold Intolerance, Polydipsia, Polyuria Hematologic/ Lymphatic: Denies: Easy Bruising, Easy Bleeding - Physical Exam Vital Signs Temp Pulse Resp BP Pulse Ox 97.8 F 84 18 148/85 H 94 08/06/18 15:31 08/06/18 15:31 08/06/18 15:31 08/06/18 15:31 07/23/18 00:43 General: Alert, Oriented x3, Cooperative, No apparent distress, Well developed, Well nourished HEENT: Atraumatic, PERRLA, EOMI, Normocephalic Oral: Moist Mucosa Neck: No JVD Lungs: Normal air movement Abdomen: Non-Distended, Obese Extremities: No clubbing, No cyanosis, No Calf Tenderness, - - No significant swelling or edema is noted in the left lower extremity. The wound on the left lateral calf appears smaller in size. It is now nearly completely healed. There is evidence of peripheral epithelialization. The base of the ulceration is pink and healthy. There is no significant bioburden. There is no sign of infection or cellulitis. Dimensions are documented elsewhere. Skin: No rashes Wound Measurements and Assessment WC - Nurse 1 - General Ulcer Measurement Start: 07/23/18 15:25 Freq: Status: Active Protocol: Activity Type Activity Date Activity User E-Sign Co-Sign Detail Recorded Client Recorded Date Recorded By Document 08/06/18 15:31 DL [id number] 08/06/18 15:38 DL 08/06/18 15:31 Wound Center Nurse 1 [Ulcer Assessment] #1 L Vaz -Current Size (cm) - Length 0.1 -Current Size (cm) - Width 0.1 -Current Size (cm) - Depth 0.1 -Total Square Cm 0.01 -Photo Taken Yes -Epithelialization Large 67-100% -Exudate Amt None Present -Granulation Amt Large (67-100%) -Granulation Quality [place] -Necrosis Amt None Present (0 %) -Structure Exposed N/A -Texture (Ketty-wound Skin Appearance) Scarring -Moisture (Ketty-wound Skin Appearance Dry/Scaly ) -Color (Ketty-wound Skin Appearance) Rubor -Temperature (Ketty-wound Skin No Abnormality Appearance) (Pt Warm) -Tenderness on Palpation (Ketty-wound No Skin Appearance) -Ulcer Cleansing Rinsed/ Irrigated with Saline -Foul Odor after Cleansing No [Edema Assessment] -Left Calf (cm) 421 -Left Ankle (cm) 24 WC - Nurse 2 - General Ulcer CM Notes Start: 07/23/18 15:25 Freq: Status: Active Protocol: Activity Type Activity Date Activity User E-Sign Co-Sign Detail Recorded Client Recorded Date Recorded By Document 08/06/18 16:14 DV [id number] 08/06/18 16:15 DV 08/06/18 16:14 Wound Center Nurse 2 [Procedure/Treatment] #1 L Vaz -Time 16:14 -Correct Patient Yes -Correct Side, Site, Position Yes -Correct Procedure No -Procedure Performed No -Wound/Ulcer Outcome Not Healed [See Physician Procedure note for Specifics] Pain Scale: 0-10 Numeric [Pain] -Is Patient Pain Free? Yes Musculoskeletal: No Muscle Wasting Neurological: Cranial nerves II-XII grossly intact, Neuro grossly intact Psych/Mental Status: Normal Affect, Appropriate, Alert and oriented to time, place, person, mood and affect Debridement Note Post-Debridement Measurements/Treatment WC - Nurse 2 - General Ulcer CM Notes Start: 07/23/18 15:25 Freq: Status: Active Protocol: Activity Type Activity Date Activity User E-Sign Co-Sign Detail Recorded Client Recorded Date Recorded By Document 07/23/18 16:00 DV [id number] 07/23/18 16:03 DV Document 07/30/18 15:44 MW [id number] 07/30/18 15:47 MW Document 08/06/18 16:14 DV [id number] 08/06/18 16:15 DV 07/23/18 07/30/18 08/06/18 16:00 15:44 16:14 Wound Center Nurse 2 #1 L Vaz -Time 16:02 15:46 16:14 -Correct Patient Yes Yes Yes -Correct Side, Site, Position Yes Yes Yes -Correct Procedure Yes Yes No -Procedure Performed Yes Yes No -Type of Procedure Debridement Debridement -Clinical Debridement Subcutaneous Subcutaneous -Post Debridement Size (cm) - Length 0.3 0.4 -Post Debridement Size (cm) - Width 0.3 0.3 -Post Debridement Size (cm) - Depth 0.1 0.1 -Total Square Cm 0.09 0.12 -Wound/Ulcer Outcome Not Healed Not Healed -Ulcer Cleansing Rinsed/ Rinsed/ Irrigated with Irrigated with Saline Saline -Foul Odor after Cleansing No No -Bioengineered Tissue No No -Bleeding Controlled with Pressure Pressure -Offloading No No -Treatment Response Procedure Procedure Tolerated Well Tolerated Well Pain Scale: 0-10 Numeric Is Patient Pain Free? Yes Yes Yes No debridement was completed today Assessment/Plan Active Problems Traumatic open wound of lower leg (Chronic) Leg swelling (Chronic) Edema of leg (Chronic) Assessment: This is a 57-year-old female who presented with a traumatic wound on the anterolateral aspect of the left calf. The injury occurred approximately 2 months prior to presentation, and has failed to heal appropriately. The patient presented with ralph, nonviable tissue within the wound itself. She is known to be a diabetic. Patient has undergone a battery of diagnostic tests, with results as follows: Glucose 150, sodium 140, potassium 4.8, chloride 103, BUN 15, creatinine 0.80, calcium 9.5, total protein 6.7, albumin 3.9, alkaline phosphatase 61, AST 20, ALT 35, hemoglobin A1c 8.3, white blood count 6.2, hemoglobin 14.2, hematocrit 41.1, platelets 253,000. The patient's past cultures were positive for Klebsiella pneumonia, pseudomonas aeruginosa, and Streptococcus. She was placed on Levaquin 750 mg p.o. daily for a total of 10 days, and completed her course. More recently, another culture was positive for Pseudomonas. The patient has completed another prescription for Levaquin 750 mg p.o. daily for 10 days. A noninvasive lower extremity arterial study was normal, revealing triphasic waveforms at ankle level bilaterally, normal resting ankle?brachial indices bilaterally, and normal digital-brachial indices bilaterally. A venous duplex examination reveals incompetence of the left great saphenous vein below the knee. The left small saphenous vein appears competent. The patient has shown significant improvement in recent weeks, with progressive decrease in the size of her wound, which now appears to be nearly healed. Plan: The patient has shown good progress. Only a very small area remains yet to heal and epithelialize, approximately 5% of the original wound surface. We are to implement the use of collagen hydrogel topically, which will be applied topically by the patient every other day. The patient is to continue elevating her legs as much as possible. Compression is to be continued as previously, using Tubigrip's. The patient will return in 2 weeks for reassessment. A noninvasive lower extremity arterial study was normal. We will continue the use of TubiGrip compression to the left lower extremity to assist in the control of swelling and edema. She is to use a double layer Tubigrip on the left lower extremity. She has also been encouraged to elevate her lower extremities as much as possible, and to avoid prolonged idle sitting. The patient has been encouraged to assure adequate nutrition. Optimizing glycemic control has also been advised. The patient will return in 2 weeks for reassessment. Influenza vaccine was not administered today. The patient is not a smoker. Patient weighs 265 pounds. She stands 5 feet 4 inches tall. Her BMI is 45.5, which places her in a class III category. Weight loss has been recommended, and collaboration with the patient's primary care physician has been recommended.
--- NOTE | 2018-08-06 16:25 | HP.PCM_ITS ---
(1) Traumatic open wound of lower leg Status: Chronic Current Visit: Yes Qualifiers: Encounter type: subsequent encounter Laterality: left Qualified Code(s): S81.802D - Unspecified open wound, left lower leg, subsequent encounter Code(s): S81.809A - Unspecified open wound, unspecified lower leg, initial encounter (2) Leg swelling Status: Chronic Current Visit: Yes Code(s): M79.89 - Other specified soft tissue disorders (3) Edema of leg Status: Chronic Current Visit: Yes Code(s): R60.0 - Localized edema (4) Diabetes mellitus Status: Chronic Current Visit: No Qualifiers: Diabetes mellitus type: type 2 Code(s): E11.9 - Type 2 diabetes mellitus without complications (5) Morbid obesity with BMI of 45.0-49.9, adult Status: Chronic Current Visit: No Code(s): E66.01 - Morbid (severe) obesity due to excess calories; Z68.42 - Body mass index (BMI) 45.0-49.9, adult (6) COPD (chronic obstructive pulmonary disease) Status: Chronic Current Visit: No Code(s): J44.9 - Chronic obstructive pulmonary disease, unspecified (7) Coronary artery arteriosclerosis Status: Chronic Current Visit: No Code(s): I25.10 - Atherosclerotic heart disease of [place] coronary artery without angina pectoris History of Present Illness Chief Complaint: Traumatic open wound of the left lower extremity History of Wound: This is a 57-year-old diabetic female who was in her normal state of health until approximately 2 months prior to presentation. At that time, she sustained trauma to the anterolateral aspect of the left calf, striking her leg against the bed frame. A wound resulted, which has failed to heal in normal fashion. She subsequently struck her leg against the bed frame a second time, again injuring the left lower extremity in the same location. She claims to have chronic swelling in the left lower extremity, that precedes her current injury. She sleeps in a recumbent position at night. 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 Past Medical History Past Medical History: Chronic Problems Traumatic open wound of lower leg (Chronic) Leg swelling (Chronic) Edema of leg (Chronic) Diabetes mellitus (Chronic) Morbid obesity with BMI of 45.0-49.9, adult (Chronic) COPD (chronic obstructive pulmonary disease) (Chronic) Coronary artery arteriosclerosis (Chronic) Surgical History: - - The patient has a history of coronary artery stent placement. She has undergone open reduction and internal fixation of a left tibia fracture. She underwent right meniscus repair in the past. She is a Ab0. Allergies/Adverse Reactions: Allergies No Known Allergies Allergy (Verified 09/03/13 11:12) Home Medications: Ambulatory Orders Medication Instructions Recorded Aspirin E.C. [Ecotrin] 81 mg PO DAILY@0800 09/03/13 Hydrocodone/Acetaminophen [Vicodin 1 - 2 tablet PO Q6H PRN PRN 09/03/13 5-300 mg Tablet] Lisinopril 10 mg PO DAILY 09/03/13 Metformin [Metformin HCl] 1,000 mg PO BID 09/03/13 Metoprolol Tartrate 50 mg PO DAILY 09/03/13 Dulaglutide [Trulicity] 0.75 mg SQ 01/02/18 Fluticasone/Vilanterol [Breo 1 each IH 01/02/18 Ellipta 200-25 Mcg INH] Insulin Glargine,Hum.rec.anlog 56 unit BID 01/02/18 [Lantus] Sitagliptin Phosphate [Januvia] 25 mg PO DAILY 01/02/18 Tiotropium [place] [Spiriva] 18 mcg IH 01/02/18 - Family History Paternal - - The patient's father at the age of 78 with history of chronic obstructive pulmonary disease. The patient's mother at the age of 84 with history of chronic obstructive pulmonary disease. Smoking Status: Former smoker Tobacco Use: Non-smoker Review of Systems Constitutional: Denies: Chills, Fever, Weight Change Eyes: Denies: Pain, Vision Change HEENT: Denies: Difficulty Hearing, Difficulty Swallowing, Sinus Congestion Cardiovascular: Denies: Chest Pain, Palpitations Respiratory: Denies: Cough, Shortness of Breath Gastrointestinal: Denies: Diarrhea, Nausea, Vomiting Genitourinary: Denies: Dysuria, Hematuria Endocrine: Denies: Heat/ Cold Intolerance, Polydipsia, Polyuria Hematologic/ Lymphatic: Denies: Easy Bruising, Easy Bleeding - Physical Exam Vital Signs Temp Pulse Resp BP Pulse Ox 97.8 F 84 18 148/85 H 94 08/06/18 15:31 08/06/18 15:31 08/06/18 15:31 08/06/18 15:31 07/23/18 00:43 General: Alert, Oriented x3, Cooperative, No apparent distress, Well developed, Well nourished HEENT: Atraumatic, PERRLA, EOMI, Normocephalic Oral: Moist Mucosa Neck: No JVD Lungs: Normal air movement Abdomen: Non-Distended, Obese Extremities: No clubbing, No cyanosis, No Calf Tenderness, - - No significant swelling or edema is noted in the left lower extremity. The wound on the left lateral calf appears smaller in size. It is now nearly completely healed. There is evidence of peripheral epithelialization. The base of the ulceration is pink and healthy. There is no significant bioburden. There is no sign of infection or cellulitis. Dimensions are documented elsewhere. Skin: No rashes Wound Measurements and Assessment WC - Nurse 1 - General Ulcer Measurement Start: 07/23/18 15:25 Freq: Status: Active Protocol: Activity Type Activity Date Activity User E-Sign Co-Sign Detail Recorded Client Recorded Date Recorded By Document 08/06/18 15:31 DL [id number] 08/06/18 15:38 DL 08/06/18 15:31 Wound Center Nurse 1 [Ulcer Assessment] #1 L Vaz -Current Size (cm) - Length 0.1 -Current Size (cm) - Width 0.1 -Current Size (cm) - Depth 0.1 -Total Square Cm 0.01 -Photo Taken Yes -Epithelialization Large 67-100% -Exudate Amt None Present -Granulation Amt Large (67-100%) -Granulation Quality Pale [place] -Necrosis Amt None Present (0 %) -Structure Exposed N/A -Texture (Ketty-wound Skin Appearance) Scarring -Moisture (Ketty-wound Skin Appearance Dry/Scaly ) -Color (Ektty-wound Skin Appearance) Rubor -Temperature (Ketty-wound Skin No Abnormality Appearance) (Pt Warm) -Tenderness on Palpation (Ketty-wound No Skin Appearance) -Ulcer Cleansing Rinsed/ Irrigated with Saline -Foul Odor after Cleansing No [Edema Assessment] -Left Calf (cm) 421 -Left Ankle (cm) 24 WC - Nurse 2 - General Ulcer CM Notes Start: 07/23/18 15:25 Freq: Status: Active Protocol: Activity Type Activity Date Activity User E-Sign Co-Sign Detail Recorded Client Recorded Date Recorded By Document 08/06/18 16:14 DV [id number] 08/06/18 16:15 DV 08/06/18 16:14 Wound Center Nurse 2 [Procedure/Treatment] #1 L Vaz -Time 16:14 -Correct Patient Yes -Correct Side, Site, Position Yes -Correct Procedure No -Procedure Performed No -Wound/Ulcer Outcome Not Healed [See Physician Procedure note for Specifics] Pain Scale: 0-10 Numeric [Pain] -Is Patient Pain Free? Yes Musculoskeletal: No Muscle Wasting Neurological: Cranial nerves II-XII grossly intact, Neuro grossly intact Psych/Mental Status: Normal Affect, Appropriate, Alert and oriented to time, place, person, mood and affect Debridement Note Post-Debridement Measurements/Treatment WC - Nurse 2 - General Ulcer CM Notes Start: 07/23/18 15:25 Freq: Status: Active Protocol: Activity Type Activity Date Activity User E-Sign Co-Sign Detail Recorded Client Recorded Date Recorded By Document 07/23/18 16:00 DV [id number] 07/23/18 16:03 DV Document 07/30/18 15:44 MW [id number] 07/30/18 15:47 MW Document 08/06/18 16:14 DV [id number] 08/06/18 16:15 DV 07/23/18 07/30/18 08/06/18 16:00 15:44 16:14 Wound Center Nurse 2 #1 L Vaz -Time 16:02 15:46 16:14 -Correct Patient Yes Yes Yes -Correct Side, Site, Position Yes Yes Yes -Correct Procedure Yes Yes No -Procedure Performed Yes Yes No -Type of Procedure Debridement Debridement -Clinical Debridement Subcutaneous Subcutaneous -Post Debridement Size (cm) - Length 0.3 0.4 -Post Debridement Size (cm) - Width 0.3 0.3 -Post Debridement Size (cm) - Depth 0.1 0.1 -Total Square Cm 0.09 0.12 -Wound/Ulcer Outcome Not Healed Not Healed -Ulcer Cleansing Rinsed/ Rinsed/ Irrigated with Irrigated with Saline Saline -Foul Odor after Cleansing No No -Bioengineered Tissue No No -Bleeding Controlled with Pressure Pressure -Offloading No No -Treatment Response Procedure Procedure Tolerated Well Tolerated Well Pain Scale: 0-10 Numeric Is Patient Pain Free? Yes Yes Yes No debridement was completed today Assessment/Plan Active Problems Traumatic open wound of lower leg (Chronic) Leg swelling (Chronic) Edema of leg (Chronic) Assessment: This is a 57-year-old female who presented with a traumatic wound on the anterolateral aspect of the left calf. The injury occurred approximately 2 months prior to presentation, and has failed to heal appropriately. The patient presented with ralph, nonviable tissue within the wound itself. She is known to be a diabetic. Patient has undergone a battery of diagnostic tests, with results as follows: Glucose 150, sodium 140, potassium 4.8, chloride 103, BUN 15, creatinine 0.80, calcium 9.5, total protein 6.7, albumin 3.9, alkaline phosphatase 61, AST 20, ALT 35, hemoglobin A1c 8.3, white blood count 6.2, hemoglobin 14.2, hematocrit 41.1, platelets 253,000. The patient's past cultures were positive for Klebsiella pneumonia, pseudomonas aeruginosa, and Streptococcus. She was placed on Levaquin 750 mg p.o. daily for a total of 10 days, and completed her course. More recently, another culture was positive for Pseudomonas. The patient has completed another prescription for Levaquin 750 mg p.o. daily for 10 days. A noninvasive lower extremity arterial study was normal, revealing triphasic waveforms at ankle level bilaterally, normal resting ankle?brachial indices bilaterally, and normal digital-brachial indices b ilaterally. A venous duplex examination reveals incompetence of the left great saphenous vein below the knee. The left small saphenous vein appears competent. The patient has shown significant improvement in recent weeks, with progressive decrease in the size of her wound, which now appears to be nearly healed. Plan: The patient has shown good progress. Only a very small area remains yet to heal and epithelialize, approximately 5% of the original wound surface. We are to implement the use of collagen hydrogel topically, which will be applied topically by the patient every other day. The patient is to continue elevating her legs as much as possible. Compression is to be continued as previously, using Tubigrip's. The patient will return in 2 weeks for reassessment. A noninvasive lower extremity arterial study was normal. We will continue the use of TubiGrip compression to the left lower extremity to assist in the control of swelling and edema. She is to use a double layer Tubigrip on the left lower extremity. She has also been encouraged to elevate her lower extremities as much as possible, and to avoid prolonged idle sitting. The patient has been encouraged to assure adequate nutrition. Optimizing glycemic control has also been advised. The patient will return in 2 weeks for reassessment. Influenza vaccine was not administered today. The patient is not a smoker. Patient weighs 265 pounds. She stands 5 feet 4 inches tall. Her BMI is 45.5, which places her in a class III category. Weight loss has been recommended, and collaboration with the patient's primary care physician has been recommended.
[2018-08-20 15:22] VITALS: BP 164/85; PULSE 97; RESP 18; TEMP 36.4; BMI 46.1
--- NOTE | 2018-08-20 16:07 | PCM.WC.HP ---
(1) Traumatic open wound of lower leg Status: Chronic Current Visit: Yes Qualifiers: Encounter type: subsequent encounter Laterality: left Qualified Code(s): S81.802D - Unspecified open wound, left lower leg, subsequent encounter Code(s): S81.809A - Unspecified open wound, unspecified lower leg, initial encounter (2) Leg swelling Status: Chronic Current Visit: Yes Code(s): M79.89 - Other specified soft tissue disorders (3) Edema of leg Status: Chronic Current Visit: Yes Code(s): R60.0 - Localized edema (4) Diabetes mellitus Status: Chronic Current Visit: No Qualifiers: Diabetes mellitus type: type 2 Code(s): E11.9 - Type 2 diabetes mellitus without complications (5) Morbid obesity with BMI of 45.0-49.9, adult Status: Chronic Current Visit: No Code(s): E66.01 - Morbid (severe) obesity due to excess calories; Z68.42 - Body mass index (BMI) 45.0-49.9, adult (6) COPD (chronic obstructive pulmonary disease) Status: Chronic Current Visit: No Code(s): J44.9 - Chronic obstructive pulmonary disease, unspecified (7) Coronary artery arteriosclerosis Status: Chronic Current Visit: No Code(s): I25.10 - Atherosclerotic heart disease of [place] coronary artery without angina pectoris History of Present Illness Chief Complaint: Traumatic open wound of the left lower extremity History of Wound: This is a 57-year-old diabetic female who was in her normal state of health until approximately 2 months prior to presentation. At that time, she sustained trauma to the anterolateral aspect of the left calf, striking her leg against the bed frame. A wound resulted, which has failed to heal in normal fashion. She subsequently struck her leg against the bed frame a second time, again injuring the left lower extremity in the same location. She claims to have chronic swelling in the left lower extremity, that precedes her current injury. She sleeps in a recumbent position at night. 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 Past Medical History Past Medical History: Chronic Problems Traumatic open wound of lower leg (Chronic) Leg swelling (Chronic) Edema of leg (Chronic) Diabetes mellitus (Chronic) Morbid obesity with BMI of 45.0-49.9, adult (Chronic) COPD (chronic obstructive pulmonary disease) (Chronic) Coronary artery arteriosclerosis (Chronic) Surgical History: - - The patient has a history of coronary artery stent placement. She has undergone open reduction and internal fixation of a left tibia fracture. She underwent right meniscus repair in the past. She is a Ab0. Allergies/Adverse Reactions: Allergies No Known Allergies Allergy (Verified 09/03/13 11:12) Home Medications: Ambulatory Orders Medication Instructions Recorded Aspirin E.C. [Ecotrin] 81 mg PO DAILY@0800 09/03/13 Hydrocodone/Acetaminophen [Vicodin 1 - 2 tablet PO Q6H PRN PRN 09/03/13 5-300 mg Tablet] Lisinopril 10 mg PO DAILY 09/03/13 Metformin [Metformin HCl] 1,000 mg PO BID 09/03/13 Metoprolol Tartrate 50 mg PO DAILY 09/03/13 Dulaglutide [Trulicity] 0.75 mg SQ 01/02/18 Fluticasone/Vilanterol [Breo 1 each IH 01/02/18 Ellipta 200-25 Mcg INH] Insulin Glargine,Hum.rec.anlog 56 unit BID 01/02/18 [Lantus] Sitagliptin Phosphate [Januvia] 25 mg PO DAILY 01/02/18 Tiotropium [place] [Spiriva] 18 mcg IH 01/02/18 - Family History Paternal - - The patient's father at the age of 78 with history of chronic obstructive pulmonary disease. The patient's mother at the age of 84 with history of chronic obstructive pulmonary disease. Smoking Status: Former smoker Tobacco Use: Non-smoker Review of Systems Constitutional: Denies: Chills, Fever, Weight Change Eyes: Denies: Pain, Vision Change HEENT: Denies: Difficulty Hearing, Difficulty Swallowing, Sinus Congestion Cardiovascular: Denies: Chest Pain, Palpitations Respiratory: Denies: Cough, Shortness of Breath Gastrointestinal: Denies: Diarrhea, Nausea, Vomiting Genitourinary: Denies: Dysuria, Hematuria Endocrine: Denies: Heat/ Cold Intolerance, Polydipsia, Polyuria Hematologic/ Lymphatic: Denies: Easy Bruising, Easy Bleeding - Physical Exam Vital Signs Temp Pulse Resp BP Pulse Ox 97.6 F L 97 18 164/85 H 94 08/20/18 15:22 08/20/18 15:22 08/20/18 15:22 08/20/18 15:22 07/23/18 00:43 General: Alert, Oriented x3, Cooperative, No apparent distress, Well developed, Well nourished HEENT: Atraumatic, PERRLA, EOMI, Normocephalic Oral: Moist Mucosa Neck: No JVD Lungs: Normal air movement Abdomen: Non-Distended Extremities: No clubbing, No cyanosis, No edema, No Calf Tenderness, - - There is no significant swelling or edema in the patient's left lower extremity. The ulceration on the left lateral calf is nearly healed. There remains a very small eschar, though the wound appears to be 80 to 90% healed and epithelialized, if not more. There is no sign of infection or cellulitis. Dimensions are documented elsewhere. Skin: No rashes Wound Measurements and Assessment WC - Nurse 1 - General Ulcer Measurement Start: 07/23/18 15:25 Freq: Status: Active Protocol: Activity Type Activity Date Activity User E-Sign Co-Sign Detail Recorded Client Recorded Date Recorded By Document 08/20/18 15:22 DL [id number] 08/20/18 15:28 DL 08/20/18 15:22 Wound Center Nurse 1 [Ulcer Assessment] #1 L Vaz -Current Size (cm) - Length 0.1 -Current Size (cm) - Width 0.1 -Current Size (cm) - Depth 0.1 -Total Square Cm 0.01 -Photo Taken No -Exudate Amt None Present -Wound Margin Flat & Intact -Granulation Amt Small (1-33%) -Granulation Quality [place] -Necrosis Amt Small (1-33%) -Necrotic Tissue Type Adherent Slough -Structure Exposed N/A -Texture (Ketty-wound Skin Appearance) Scarring -Moisture (Ketty-wound Skin Appearance Dry/Scaly ) -Color (Ketty-wound Skin Appearance) Hemosiderin Staining -Temperature (Ketty-wound Skin No Abnormality Appearance) (Pt Warm) -Ulcer Cleansing Rinsed/ Irrigated with Saline -Foul Odor after Cleansing No -Anesthetic Used 4% Lidocaine Solution [Edema Assessment] -Left Calf (cm) 42.4 -Left Ankle (cm) 24 WC - Nurse 2 - General Ulcer CM Notes Start: 07/23/18 15:25 Freq: Status: Active Protocol: Activity Type Activity Date Activity User E-Sign Co-Sign Detail Recorded Client Recorded Date Recorded By Document 08/20/18 15:49 DV [id number] 08/20/18 15:51 DV 08/20/18 15:49 Wound Center Nurse 2 [Procedure/Treatment] #1 L Vaz -Time 15:50 -Correct Patient Yes -Correct Side, Site, Position Yes -Correct Procedure No -Procedure Performed No -Wound/Ulcer Outcome Not Healed -Ulcer Cleansing Rinsed/ Irrigated with Saline -Foul Odor after Cleansing No -Bioengineered Tissue No -Bleeding Controlled with Pressure -Offloading No -Treatment Response Procedure Tolerated Well [See Physician Procedure note for Specifics] Pain Scale: 0-10 Numeric [Pain] -Is Patient Pain Free? Yes Musculoskeletal: No Muscle Wasting Neurological: Cranial nerves II-XII grossly intact, Neuro grossly intact Psych/Mental Status: Normal Affect, Appropriate, Alert and oriented to time, place, person, mood and affect Debridement Note Post-Debridement Measurements/Treatment WC - Nurse 2 - General Ulcer CM Notes Start: 07/23/18 15:25 Freq: Status: Active Protocol: Activity Type Activity Date Activity User E-Sign Co-Sign Detail Recorded Client Recorded Date Recorded By Document 07/23/18 16:00 DV [id number] 07/23/18 16:03 DV Document 07/30/18 15:44 MW [id number] 07/30/18 15:47 MW Document 08/06/18 16:14 DV [id number] 08/06/18 16:15 DV Document 08/20/18 15:49 DV [id number] 08/20/18 15:51 DV 07/23/18 07/30/18 08/06/18 16:00 15:44 16:14 Wound Center Nurse 2 #1 L Vaz -Time 16:02 15:46 16:14 -Correct Patient Yes Yes Yes -Correct Side, Site, Position Yes Yes Yes -Correct Procedure Yes Yes No -Procedure Performed Yes Yes No -Type of Procedure Debridement Debridement -Clinical Debridement Subcutaneous Subcutaneous -Post Debridement Size (cm) - Length 0.3 0.4 -Post Debridement Size (cm) - Width 0.3 0.3 -Post Debridement Size (cm) - Depth 0.1 0.1 -Total Square Cm 0.09 0.12 -Wound/Ulcer Outcome Not Healed Not Healed -Ulcer Cleansing Rinsed/ Rinsed/ Irrigated with Irrigated with Saline Saline -Foul Odor after Cleansing No No -Bioengineered Tissue No No -Bleeding Controlled with Pressure Pressure -Offloading No No -Treatment Response Procedure Procedure Tolerated Well Tolerated Well Pain Scale: 0-10 Numeric Is Patient Pain Free? Yes Yes Yes 08/20/18 15:49 Wound Center Nurse 2 #1 L Vaz -Time 15:50 -Correct Patient Yes -Correct Side, Site, Position Yes -Correct Procedure No -Procedure Performed No -Type of Procedure -Clinical Debridement -Post Debridement Size (cm) - Length -Post Debridement Size (cm) - Width -Post Debridement Size (cm) - Depth -Total Square Cm -Wound/Ulcer Outcome Not Healed -Ulcer Cleansing Rinsed/ Irrigated with Saline -Foul Odor after Cleansing No -Bioengineered Tissue No -Bleeding Controlled with Pressure -Offloading No -Treatment Response Procedure Tolerated Well Pain Scale: 0-10 Numeric Is Patient Pain Free? Yes No debridement was completed today Assessment/Plan Active Problems Traumatic open wound of lower leg (Chronic) Leg swelling (Chronic) Edema of leg (Chronic) Assessment: This is a 57-year-old female who presented with a traumatic wound on the anterolateral aspect of the left calf. The injury occurred approximately 2 months prior to presentation, and has failed to heal appropriately. The patient presented with ralph, nonviable tissue within the wound itself. She is known to be a diabetic. Patient has undergone a battery of diagnostic tests, with results as follows: Glucose 150, sodium 140, potassium 4.8, chloride 103, BUN 15, creatinine 0.80, calcium 9.5, total protein 6.7, albumin 3.9, alkaline phosphatase 61, AST 20, ALT 35, hemoglobin A1c 8.3, white blood count 6.2, hemoglobin 14.2, hematocrit 41.1, platelets 253,000. The patient's past cultures were positive for Klebsiella pneumonia, pseudomonas aeruginosa, and Streptococcus. She was placed on Levaquin 750 mg p.o. daily for a total of 10 days, and completed her course. More recently, another culture was positive for Pseudomonas. The patient has completed another prescription for Levaquin 750 mg p.o. daily for 10 days. A noninvasive lower extremity arterial study was normal, revealing triphasic waveforms at ankle level bilaterally, normal resting ankle?brachial indices bilaterally, and normal digital-brachial indices bilaterally. A venous duplex examination reveals incompetence of the left great saphenous vein below the knee. The left small saphenous vein appears competent. The patient has shown significant improvement in recent weeks, with progressive decrease in the size of her wound, which now appears to be nearly healed. Only a small eschar remains, which was left intact, and undisturbed today. No debridement was performed. Plan: The patient has shown good progress. Only a very small area remains yet to heal and epithelialize, approximately 5-10% of the original wound surface. We are to continue the use of collagen hydrogel topically, which will be applied topically by the patient daily. The patient is to continue elevating her legs as much as possible. Compression is to be continued as previously, using Tubigrip's. The patient will return in 2 weeks for reassessment. A noninvasive lower extremity arterial study was normal. We will continue the use of TubiGrip compression to the left lower extremity to assist in the control of swelling and edema. She is to use a double layer Tubigrip on the left lower extremity. She has also been encouraged to elevate her lower extremities as much as possible, and to avoid prolonged idle sitting. The patient has been encouraged to assure adequate nutrition. Optimizing glycemic control has also been advised. The patient will return in 2 weeks for reassessment. Only a small eschar remains, which was left undisturbed today, and is expected to slough within the next 2 weeks, prior to her return visit. It is anticipated that her wound may be completely healed by the time she returns in 2 weeks. Influenza vaccine was not administered today. The patient is not a smoker. Patient weighs 265 pounds. She stands 5 feet 4 inches tall. Her BMI is 45.5, which places her in a class III category. Weight loss has been recommended, and collaboration with the patient's primary care physician has been recommended.
--- NOTE | 2018-08-20 16:11 | HP.PCM_ITS ---
(1) Traumatic open wound of lower leg Status: Chronic Current Visit: Yes Qualifiers: Encounter type: subsequent encounter Laterality: left Qualified Code(s): S81.802D - Unspecified open wound, left lower leg, subsequent encounter Code(s): S81.809A - Unspecified open wound, unspecified lower leg, initial encounter (2) Leg swelling Status: Chronic Current Visit: Yes Code(s): M79.89 - Other specified soft tissue disorders (3) Edema of leg Status: Chronic Current Visit: Yes Code(s): R60.0 - Localized edema (4) Diabetes mellitus Status: Chronic Current Visit: No Qualifiers: Diabetes mellitus type: type 2 Code(s): E11.9 - Type 2 diabetes mellitus without complications (5) Morbid obesity with BMI of 45.0-49.9, adult Status: Chronic Current Visit: No Code(s): E66.01 - Morbid (severe) obesity due to excess calories; Z68.42 - Body mass index (BMI) 45.0-49.9, adult (6) COPD (chronic obstructive pulmonary disease) Status: Chronic Current Visit: No Code(s): J44.9 - Chronic obstructive pulmonary disease, unspecified (7) Coronary artery arteriosclerosis Status: Chronic Current Visit: No Code(s): I25.10 - Atherosclerotic heart disease of [place] coronary artery without angina pectoris History of Present Illness Chief Complaint: Traumatic open wound of the left lower extremity History of Wound: This is a 57-year-old diabetic female who was in her normal state of health until approximately 2 months prior to presentation. At that time, she sustained trauma to the anterolateral aspect of the left calf, striking her leg against the bed frame. A wound resulted, which has failed to heal in normal fashion. She subsequently struck her leg against the bed frame a second time, again injuring the left lower extremity in the same location. She claims to have chronic swelling in the left lower extremity, that precedes her current injury. She sleeps in a recumbent position at night. 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 Past Medical History Past Medical History: Chronic Problems Traumatic open wound of lower leg (Chronic) Leg swelling (Chronic) Edema of leg (Chronic) Diabetes mellitus (Chronic) Morbid obesity with BMI of 45.0-49.9, adult (Chronic) COPD (chronic obstructive pulmonary disease) (Chronic) Coronary artery arteriosclerosis (Chronic) Surgical History: - - The patient has a history of coronary artery stent placement. She has undergone open reduction and internal fixation of a left tibia fracture. She underwent right meniscus repair in the past. She is a Ab0. Allergies/Adverse Reactions: Allergies No Known Allergies Allergy (Verified 09/03/13 11:12) Home Medications: Ambulatory Orders Medication Instructions Recorded Aspirin E.C. [Ecotrin] 81 mg PO DAILY@0800 09/03/13 Hydrocodone/Acetaminophen [Vicodin 1 - 2 tablet PO Q6H PRN PRN 09/03/13 5-300 mg Tablet] Lisinopril 10 mg PO DAILY 09/03/13 Metformin [Metformin HCl] 1,000 mg PO BID 09/03/13 Metoprolol Tartrate 50 mg PO DAILY 09/03/13 Dulaglutide [Trulicity] 0.75 mg SQ 01/02/18 Fluticasone/Vilanterol [Breo 1 each IH 01/02/18 Ellipta 200-25 Mcg INH] Insulin Glargine,Hum.rec.anlog 56 unit BID 01/02/18 [Lantus] Sitagliptin Phosphate [Januvia] 25 mg PO DAILY 01/02/18 Tiotropium [place] [Spiriva] 18 mcg IH 01/02/18 - Family History Paternal - - The patient's father at the age of 78 with history of chronic obstructive pulmonary disease. The patient's mother at the age of 84 with history of chronic obstructive pulmonary disease. Smoking Status: Former smoker Tobacco Use: Non-smoker Review of Systems Constitutional: Denies: Chills, Fever, Weight Change Eyes: Denies: Pain, Vision Change HEENT: Denies: Difficulty Hearing, Difficulty Swallowing, Sinus Congestion Cardiovascular: Denies: Chest Pain, Palpitations Respiratory: Denies: Cough, Shortness of Breath Gastrointestinal: Denies: Diarrhea, Nausea, Vomiting Genitourinary: Denies: Dysuria, Hematuria Endocrine: Denies: Heat/ Cold Intolerance, Polydipsia, Polyuria Hematologic/ Lymphatic: Denies: Easy Bruising, Easy Bleeding - Physical Exam Vital Signs Temp Pulse Resp BP Pulse Ox 97.6 F L 97 18 164/85 H 94 08/20/18 15:22 08/20/18 15:22 08/20/18 15:22 08/20/18 15:22 07/23/18 00:43 General: Alert, Oriented x3, Cooperative, No apparent distress, Well developed, Well nourished HEENT: Atraumatic, PERRLA, EOMI, Normocephalic Oral: Moist Mucosa Neck: No JVD Lungs: Normal air movement Abdomen: Non-Distended Extremities: No clubbing, No cyanosis, No edema, No Calf Tenderness, - - There is no significant swelling or edema in the patient's left lower extremity. The ulceration on the left lateral calf is nearly healed. There remains a very small eschar, though the wound appears to be 80 to 90% healed and epithelialized, if not more. There is no sign of infection or cellulitis. Dimensions are documented elsewhere. Skin: No rashes Wound Measurements and Assessment WC - Nurse 1 - General Ulcer Measurement Start: 07/23/18 15:25 Freq: Status: Active Protocol: Activity Type Activity Date Activity User E-Sign Co-Sign Detail Recorded Client Recorded Date Recorded By Document 08/20/18 15:22 DL [id number] 08/20/18 15:28 DL 08/20/18 15:22 Wound Center Nurse 1 [Ulcer Assessment] #1 L Vaz -Current Size (cm) - Length 0.1 -Current Size (cm) - Width 0.1 -Current Size (cm) - Depth 0.1 -Total Square Cm 0.01 -Photo Taken No -Exudate Amt None Present -Wound Margin Flat & Intact -Granulation Amt Small (1-33%) -Granulation Quality [place] -Necrosis Amt Small (1-33%) -Necrotic Tissue Type Adherent Slough -Structure Exposed N/A -Texture ([place]et[place]-wound Skin Appearance) Scarring -Moisture ([place]et[place]-wound Skin Appearance Dry/Scaly ) -Color ([place]et[place]-wound Skin Appearance) Hemosiderin Staining -Temperature ([place]-wound Skin No Abnormality Appearance) (Pt Warm) -Ulcer Cleansing Rinsed/ Irrigated with Saline -Foul Odor after Cleansing No -Anesthetic Used 4% Lidocaine Solution [Edema Assessment] -Left Calf (cm) 42.4 -Left Ankle (cm) 24 WC - Nurse 2 - General Ulcer CM Notes Start: 07/23/18 15:25 Freq: Status: Active Protocol: Activity Type Activity Date Activity User E-Sign Co-Sign Detail Recorded Client Recorded Date Recorded By Document 08/20/18 15:49 DV [id number] 08/20/18 15:51 DV 08/20/18 15:49 Wound Center Nurse 2 [Procedure/Treatment] #1 L Vaz -Time 15:50 -Correct Patient Yes -Correct Side, Site, Position Yes -Correct Procedure No -Procedure Performed No -Wound/Ulcer Outcome Not Healed -Ulcer Cleansing Rinsed/ Irrigated with Saline -Foul Odor after Cleansing No -Bioengineered Tissue No -Bleeding Controlled with Pressure -Offloading No -Treatment Response Procedure Tolerated Well [See Physician Procedure note for Specifics] Pain Scale: 0-10 Numeric [Pain] -Is Patient Pain Free? Yes Musculoskeletal: No Muscle Wasting Neurological: Cranial nerves II-XII grossly intact, Neuro grossly intact Psych/Mental Status: Normal Affect, Appropriate, Alert and oriented to time, place, person, mood and affect Debridement Note Post-Debridement Measurements/Treatment WC - Nurse 2 - General Ulcer CM Notes Start: 07/23/18 15:25 Freq: Status: Active Protocol: Activity Type Activity Date Activity User E-Sign Co-Sign Detail Recorded Client Recorded Date Recorded By Document 07/23/18 16:00 DV [id number] 07/23/18 16:03 DV Document 07/30/18 15:44 MW [id number] 07/30/18 15:47 MW Document 08/06/18 16:14 DV [id number] 08/06/18 16:15 DV Document 08/20/18 15:49 DV [id number] 08/20/18 15:51 DV 07/23/18 07/30/18 08/06/18 16:00 15:44 16:14 Wound Center Nurse 2 #1 L Vaz -Time 16:02 15:46 16:14 -Correct Patient Yes Yes Yes -Correct Side, Site, Position Yes Yes Yes -Correct Procedure Yes Yes No -Procedure Performed Yes Yes No -Type of Procedure Debridement Debridement -Clinical Debridement Subcutaneous Subcutaneous -Post Debridement Size (cm) - Length 0.3 0.4 -Post Debridement Size (cm) - Width 0.3 0.3 -Post Debridement Size (cm) - Depth 0.1 0.1 -Total Square Cm 0.09 0.12 -Wound/Ulcer Outcome Not Healed Not Healed -Ulcer Cleansing Rinsed/ Rinsed/ Irrigated with Irrigated with Saline Saline -Foul Odor after Cleansing No No -Bioengineered Tissue No No -Bleeding Controlled with Pressure Pressure -Offloading No No -Treatment Response Procedure Procedure Tolerated Well Tolerated Well Pain Scale: 0-10 Numeric Is Patient Pain Free? Yes Yes Yes 08/20/18 15:49 Wound Center Nurse 2 #1 L Vaz -Time 15:50 -Correct Patient Yes -Correct Side, Site, Position Yes -Correct Procedure No -Procedure Performed No -Type of Procedure -Clinical Debridement -Post Debridement Size (cm) - Length -Post Debridement Size (cm) - Width -Post Debridement Size (cm) - Depth -Total Square Cm -Wound/Ulcer Outcome Not Healed -Ulcer Cleansing Rinsed/ Irrigated with Saline -Foul Odor after Cleansing No -Bioengineered Tissue No -Bleeding Controlled with Pressure -Offloading No -Treatment Response Procedure Tolerated Well Pain Scale: 0-10 Numeric Is Patient Pain Free? Yes No debridement was completed today Assessment/Plan Active Problems Traumatic open wound of lower leg (Chronic) Leg swelling (Chronic) Edema of leg (Chronic) Assessment: This is a 57-year-old female who presented with a traumatic wound on the anterolateral aspect of the left calf. The injury occurred approximately 2 months prior to presentation, and has failed to heal appropriately. The patient presented with ralph, nonviable tissue within the wound itself. She is known to be a diabetic. Patient has undergone a battery of diagnostic tests, with results as follows: Glucose 150, sodium 140, potassium 4.8, chloride 103, BUN 15, creatinine 0.80, calcium 9.5, total protein 6.7, albumin 3.9, alkaline phosphatase 61, AST 20, ALT 35, hemoglobin A1c 8.3, white blood count 6.2, hemoglobin 14.2, hematocrit 41.1, platelets 253,000. The patient's past cultures were positive for Klebsiella pneumonia, pseudomonas aeruginosa, and Streptococcus. She was placed on Levaquin 750 mg p.o. daily for a total of 10 days, and completed her course. More recently, another culture was positive for Pseudomonas. The patient has completed another prescription for Levaquin 750 mg p.o. daily for 10 days. A noninvasive lower extremity arterial study was normal, revealing triphasic waveforms at ankle level bilaterally, normal resting ankle?brachial indices bilaterally, and normal digital-brachial indices bilaterally. A venous duplex examination reveals incompetence of the left great saphenous vein below the knee. The left small saphenous vein appears competent. The patient has shown significant improvement in recent weeks, with progressive decrease in the size of her wound, which now appears to be nearly healed. Only a small eschar remains, which was left intact, and undisturbed today. No debridement was performed. Plan: The patient has shown good progress. Only a very small area remains yet to heal and epithelialize, approximately 5-10% of the original wound surface. We are to continue the use of collagen hydrogel topically, which will be applied topically by the patient daily. The patient is to continue elevating her legs as much as possible. Compression is to be continued as previously, using Tubigr ip's. The patient will return in 2 weeks for reassessment. A noninvasive lower extremity arterial study was normal. We will continue the use of TubiGrip compression to the left lower extremity to assist in the control of swelling and edema. She is to use a double layer Tubigrip on the left lower extremity. She has also been encouraged to elevate her lower extremities as much as possible, and to avoid prolonged idle sitting. The patient has been encouraged to assure adequate nutrition. Optimizing glycemic control has also been advised. The patient will return in 2 weeks for reassessment. Only a small eschar remains, which was left undisturbed today, and is expected to slough within the next 2 weeks, prior to her return visit. It is anticipated that her wound may be completely healed by the time she returns in 2 weeks. Influenza vaccine was not administered today. The patient is not a smoker. Patient weighs 265 pounds. She stands 5 feet 4 inches tall. Her BMI is 45.5, which places her in a class III category. Weight loss has been recommended, and collaboration with the patient's primary care physician has been recommended.
== END 2018-08-21 23:59 ==
LOC: WC 15:30
PROVIDERS: Family Provider Nurse Practitioner Primary Care; PCP Nurse Practitioner Primary Care; Referring Provider Surgery; Visit Provider Surgery
DX: S81.832A Puncture wound without foreign body, left lower leg, initial encounter (principal); W22.03XA Walked into furniture, initial encounter; M79.89 Other specified soft tissue disorders; R60.0 Localized edema; E11.9 Type 2 diabetes mellitus without complications; J44.9 Chronic obstructive pulmonary disease, unspecified; I25.10 Atherosclerotic heart disease of native coronary artery without angina pectoris; E66.01 Morbid (severe) obesity due to excess calories; Z68.42 Body mass index [BMI] 45.0-49.9, adult; Z79.899 Other long term (current) drug therapy; Z79.4 Long term (current) use of insulin; Z87.891 Personal history of nicotine dependence
CPT/HCPCS: 11042; 99212; 99213; G0463

== ENCOUNTER 2018-09-18 08:00 | Outpatient (RCR) | payer OTHER, SELFPAY ==
[2018-08-22 00:54] VITALS: BP 164/85; PULSE 97; RESP 18; TEMP 36.4; O2SAT 94
[2018-09-11 08:10] VITALS: BP 154/75; PULSE 97; RESP 18; TEMP 35.8; BMI 46.1
--- NOTE | 2018-09-11 08:44 | PCM.WC.HP ---
(1) Traumatic open wound of lower leg Status: Chronic Current Visit: Yes Qualifiers: Encounter type: subsequent encounter Laterality: left Qualified Code(s): S81.802D - Unspecified open wound, left lower leg, subsequent encounter Code(s): S81.809A - Unspecified open wound, unspecified lower leg, initial encounter (2) Leg swelling Status: Chronic Current Visit: Yes Code(s): M79.89 - Other specified soft tissue disorders (3) Edema of leg Status: Chronic Current Visit: Yes Code(s): R60.0 - Localized edema (4) Diabetes mellitus Status: Chronic Current Visit: No Qualifiers: Diabetes mellitus type: type 2 Code(s): E11.9 - Type 2 diabetes mellitus without complications (5) Morbid obesity with BMI of 45.0-49.9, adult Status: Chronic Current Visit: No Code(s): E66.01 - Morbid (severe) obesity due to excess calories; Z68.42 - Body mass index (BMI) 45.0-49.9, adult (6) COPD (chronic obstructive pulmonary disease) Status: Chronic Current Visit: No Code(s): J44.9 - Chronic obstructive pulmonary disease, unspecified (7) Coronary artery arteriosclerosis Status: Chronic Current Visit: No Code(s): I25.10 - Atherosclerotic heart disease of [place] coronary artery without angina pectoris History of Present Illness Chief Complaint: Traumatic open wound of the left lower extremity History of Wound: This is a 57-year-old diabetic female who was in her normal state of health until approximately 2 months prior to presentation. At that time, she sustained trauma to the anterolateral aspect of the left calf, striking her leg against the bed frame. A wound resulted, which has failed to heal in normal fashion. She subsequently struck her leg against the bed frame a second time, again injuring the left lower extremity in the same location. She claims to have chronic swelling in the left lower extremity, that precedes her current injury. She sleeps in a recumbent position at night. 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 Past Medical History Past Medical History: Chronic Problems Traumatic open wound of lower leg (Chronic) Leg swelling (Chronic) Edema of leg (Chronic) Diabetes mellitus (Chronic) Morbid obesity with BMI of 45.0-49.9, adult (Chronic) COPD (chronic obstructive pulmonary disease) (Chronic) Coronary artery arteriosclerosis (Chronic) Surgical History: - - The patient has a history of coronary artery stent placement. She has undergone open reduction and internal fixation of a left tibia fracture. She underwent right meniscus repair in the past. She is a Ab0. Allergies/Adverse Reactions: Allergies No Known Allergies Allergy (Verified 09/03/13 11:12) Home Medications: Ambulatory Orders Medication Instructions Recorded Aspirin E.C. [Ecotrin] 81 mg PO DAILY@0800 09/03/13 Hydrocodone/Acetaminophen [Vicodin 1 - 2 tablet PO Q6H PRN PRN 09/03/13 5-300 mg Tablet] Lisinopril 10 mg PO DAILY 09/03/13 Metformin [Metformin HCl] 1,000 mg PO BID 09/03/13 Metoprolol Tartrate 50 mg PO DAILY 09/03/13 Dulaglutide [Trulicity] 0.75 mg SQ 01/02/18 Fluticasone/Vilanterol [Breo 1 each IH 01/02/18 Ellipta 200-25 Mcg INH] Insulin Glargine,Hum.rec.anlog 56 unit BID 01/02/18 [Lantus] Sitagliptin Phosphate [Januvia] 25 mg PO DAILY 01/02/18 Tiotropium [place] [Spiriva] 18 mcg IH 01/02/18 - Family History Paternal - - The patient's father at the age of 78 with history of chronic obstructive pulmonary disease. The patient's mother at the age of 84 with history of chronic obstructive pulmonary disease. Smoking Status: Former smoker Tobacco Use: Non-smoker Review of Systems Constitutional: Denies: Chills, Fever, Weight Change Eyes: Denies: Pain, Vision Change HEENT: Denies: Difficulty Hearing, Difficulty Swallowing, Sinus Congestion Cardiovascular: Denies: Chest Pain, Palpitations Respiratory: Denies: Cough, Shortness of Breath Gastrointestinal: Denies: Diarrhea, Nausea, Vomiting Genitourinary: Denies: Dysuria, Hematuria Endocrine: Denies: Heat/ Cold Intolerance, Polydipsia, Polyuria Hematologic/ Lymphatic: Denies: Easy Bruising, Easy Bleeding - Physical Exam Vital Signs Temp Pulse Resp BP Pulse Ox 96.4 F L 97 18 154/75 H 94 09/11/18 08:10 09/11/18 08:10 09/11/18 08:10 09/11/18 08:10 08/22/18 00:54 General: Alert, Oriented x3, Cooperative, No apparent distress, Well developed, Well nourished HEENT: Atraumatic, PERRLA, EOMI, Normocephalic Oral: Moist Mucosa Neck: No JVD Lungs: Normal air movement Abdomen: Non-Distended Extremities: No clubbing, No cyanosis, No edema, No Calf Tenderness, - - There is no significant swelling or edema in the patient's left lower extremity. The wound on the anterolateral aspect of the left calf persists. It is small in size. Dimensions are documented elsewhere. There is a small amount of bioburden. Otherwise, there is evidence of healthy, pink granulation tissue. There is no sign of infection or cellulitis. The raul-wound area is slightly macerated. Skin: No rashes Wound Measurements and Assessment WC - Nurse 1 - General Ulcer Measurement Start: 09/11/18 08:10 Freq: Status: Active Protocol: Activity Type Activity Date Activity User E-Sign Co-Sign Detail Recorded Client Recorded Date Recorded By Document 09/11/18 08:10 [email or web address] [id number] 09/11/18 08:17 DL 09/11/18 08:10 Wound Center Nurse 1 [Ulcer Assessment] #1 L Vaz -Current Size (cm) - Length 0.1 -Current Size (cm) - Width 0.1 -Current Size (cm) - Depth 0.1 -Total Square Cm 0.01 -Photo Taken Yes -Exudate Amt None Present -Wound Margin Flat & Intact -Granulation Amt Large (67-100%) -Granulation Quality [place] -Necrosis Amt Small (1-33%) -Necrotic Tissue Type Adherent Slough -Structure Exposed N/A -Texture ([place]-wound Skin Appearance) Scarring -Moisture ([place]-wound Skin Appearance No Abnormality ) -Color ([place]-wound Skin Appearance) No Abnormality -Temperature ([place]-wound Skin No Abnormality Appearance) (Pt Warm) -Tenderness on Palpation (Raul-wound No Skin Appearance) -Ulcer Cleansing Rinsed/ Irrigated with Saline -Foul Odor after Cleansing No -Anesthetic Used 4% Lidocaine Solution [Edema Assessment] -Left Calf (cm) 42.5 -Left Ankle (cm) 24.5 WC - Nurse 2 - General Ulcer CM Notes Start: 09/11/18 08:10 Freq: Status: Active Protocol: Activity Type Activity Date Activity User E-Sign Co-Sign Detail Recorded Client Recorded Date Recorded By Document 09/11/18 08:38 DV [id number] 09/11/18 08:42 DV 09/11/18 08:38 Wound Center Nurse 2 [Procedure/Treatment] #1 L Vaz -Time 08:39 -Correct Patient Yes -Correct Side, Site, Position Yes -Correct Procedure Yes -Procedure Performed Yes -Type of Procedure Debridement -Clinical Debridement Subcutaneous -Post Debridement Size (cm) - Length 0.2 -Post Debridement Size (cm) - Width 0.2 -Post Debridement Size (cm) - Depth 0.1 -Total Square Cm 0.04 -Wound/Ulcer Outcome Not Healed -Ulcer Cleansing Rinsed/ Irrigated with Saline -Foul Odor after Cleansing No -Bioengineered Tissue No -Bleeding Controlled with Pressure -Offloading No -Treatment Response Procedure Tolerated Well [See Physician Procedure note for Specifics] Pain Scale: 0-10 Numeric [Pain] -Is Patient Pain Free? Yes Musculoskeletal: No Muscle Wasting Neurological: Cranial nerves II-XII grossly intact, Neuro grossly intact Psych/Mental Status: Normal Affect, Appropriate, Alert and oriented to time, place, person, mood and affect Debridement Note Post-Debridement Measurements/Treatment WC - Nurse 2 - General Ulcer CM Notes Start: 09/11/18 08:10 Freq: Status: Active Protocol: Activity Type Activity Date Activity User E-Sign Co-Sign Detail Recorded Client Recorded Date Recorded By Document 09/11/18 08:38 DV [id number] 09/11/18 08:42 DV 09/11/18 08:38 Wound Center Nurse 2 #1 L Vaz -Time 08:39 -Correct Patient Yes -Correct Side, Site, Position Yes -Correct Procedure Yes -Procedure Performed Yes -Type of Procedure Debridement -Clinical Debridement Subcutaneous -Post Debridement Size (cm) - Length 0.2 -Post Debridement Size (cm) - Width 0.2 -Post Debridement Size (cm) - Depth 0.1 -Total Square Cm 0.04 -Wound/Ulcer Outcome Not Healed -Ulcer Cleansing Rinsed/ Irrigated with Saline -Foul Odor after Cleansing No -Bioengineered Tissue No -Bleeding Controlled with Pressure -Offloading No -Treatment Response Procedure Tolerated Well Pain Scale: 0-10 Numeric Is Patient Pain Free? Yes Laterality: Left - Anterolateral calf Type of Debridement: Excisional debridement Anesthesia Used: 5% Lidocaine Gel Depth: Down to and including healthy tissue, in the subcutaneous layer Percentage of wound debrided: 100 Instrument Used: 5mm curette Tissue Removed: Nonviable tissue and bioburden Severity: Fat Layer Exposed Amount of bleeding with debridement: Mild Bleeding Controlled with: Compression and gauze Patient tolerated procedure well Assessment/Plan Active Problems Traumatic open wound of lower leg (Chronic) Leg swelling (Chronic) Edema of leg (Chronic) Assessment: This is a 57-year-old female who presented with a traumatic wound on the anterolateral aspect of the left calf. The injury occurred approximately 2 months prior to presentation, and has failed to heal appropriately. The patient presented with ralph, nonviable tissue within the wound itself. She is known to be a diabetic. Patient has undergone a battery of diagnostic tests, with results as follows: Glucose 150, sodium 140, potassium 4.8, chloride 103, BUN 15, creatinine 0.80, calcium 9.5, total protein 6.7, albumin 3.9, alkaline phosphatase 61, AST 20, ALT 35, hemoglobin A1c 8.3, white blood count 6.2, hemoglobin 14.2, hematocrit 41.1, platelets 253,000. The patient's past cultures were positive for Klebsiella pneumonia, pseudomonas aeruginosa, and Streptococcus. She was placed on Levaquin 750 mg p.o. daily for a total of 10 days, and completed her course. More recently, another culture was positive for Pseudomonas. The patient has completed another prescription for Levaquin 750 mg p.o. daily for 10 days. A noninvasive lower extremity arterial study was normal, revealing triphasic waveforms at ankle level bilaterally, normal resting ankle?brachial indices bilaterally, and normal digital-brachial indices bilaterally. A venous duplex examination reveals incompetence of the left great saphenous vein below the knee. The left small saphenous vein appears competent. The patient has shown significant improvement in recent weeks, with progressive decrease in the size of her wound. A small wound persists, appearing somewhat macerated today as result of the use of collagen hydrogel in recent weeks. Plan: The patient has shown good progress. Only a very small area remains yet to heal and epithelialize, approximately 5-10% of the original wound surface. Because of apparent maceration from the use of collagen hydrogel, we are to transition from the use of hydrogel and implement Aquacel. Aquacel will be applied every other day topically. The patient is to continue elevating her legs as much as possible. Compression is to be continued as previously, using Tubigrip's. The patient will return in 1 week for reassessment. A noninvasive lower extremity arterial study was normal. She has been encouraged to elevate her lower extremities as much as possible, and to avoid prolonged idle sitting. The patient has been encouraged to assure adequate nutrition. Optimizing glycemic control has also been advised. The patient will return in 1 week for reassessment. Influenza vaccine was not administered today. The patient is not a smoker. Patient weighs 265 pounds. She stands 5 feet 4 inches tall. Her BMI is 45.5, which places her in a class III category. Weight loss has been recommended, and collaboration with the patient's primary care physician has been recommended.
[2018-09-18 08:05] VITALS: BP 130/76; PULSE 100; RESP 18; TEMP 35.9; BMI 46.1
--- NOTE | 2018-09-18 08:33 | PCM.WC.HP ---
(1) Traumatic open wound of lower leg Status: Chronic Current Visit: Yes Qualifiers: Encounter type: subsequent encounter Laterality: left Qualified Code(s): S81.802D - Unspecified open wound, left lower leg, subsequent encounter Code(s): S81.809A - Unspecified open wound, unspecified lower leg, initial encounter (2) Leg swelling Status: Chronic Current Visit: Yes Code(s): M79.89 - Other specified soft tissue disorders (3) Edema of leg Status: Chronic Current Visit: Yes Code(s): R60.0 - Localized edema (4) Diabetes mellitus Status: Chronic Current Visit: No Qualifiers: Diabetes mellitus type: type 2 Code(s): E11.9 - Type 2 diabetes mellitus without complications (5) Morbid obesity with BMI of 45.0-49.9, adult Status: Chronic Current Visit: No Code(s): E66.01 - Morbid (severe) obesity due to excess calories; Z68.42 - Body mass index (BMI) 45.0-49.9, adult (6) COPD (chronic obstructive pulmonary disease) Status: Chronic Current Visit: No Code(s): J44.9 - Chronic obstructive pulmonary disease, unspecified (7) Coronary artery arteriosclerosis Status: Chronic Current Visit: No Code(s): I25.10 - Atherosclerotic heart disease of [place] coronary artery without angina pectoris History of Present Illness Chief Complaint: Traumatic open wound of the left lower extremity History of Wound: This is a 57-year-old diabetic female who was in her normal state of health until approximately 2 months prior to presentation. At that time, she sustained trauma to the anterolateral aspect of the left calf, striking her leg against the bed frame. A wound resulted, which has failed to heal in normal fashion. She subsequently struck her leg against the bed frame a second time, again injuring the left lower extremity in the same location. She claims to have chronic swelling in the left lower extremity, that precedes her current injury. She sleeps in a recumbent position at night. 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 Past Medical History Past Medical History: Chronic Problems Traumatic open wound of lower leg (Chronic) Leg swelling (Chronic) Edema of leg (Chronic) Diabetes mellitus (Chronic) Morbid obesity with BMI of 45.0-49.9, adult (Chronic) COPD (chronic obstructive pulmonary disease) (Chronic) Coronary artery arteriosclerosis (Chronic) Surgical History: - - The patient has a history of coronary artery stent placement. She has undergone open reduction and internal fixation of a left tibia fracture. She underwent right meniscus repair in the past. She is a Ab0. Allergies/Adverse Reactions: Allergies No Known Allergies Allergy (Verified 09/03/13 11:12) Home Medications: Ambulatory Orders Medication Instructions Recorded Aspirin E.C. [Ecotrin] 81 mg PO DAILY@0800 09/03/13 Hydrocodone/Acetaminophen [Vicodin 1 - 2 tablet PO Q6H PRN PRN 09/03/13 5-300 mg Tablet] Lisinopril 10 mg PO DAILY 09/03/13 Metformin [Metformin HCl] 1,000 mg PO BID 09/03/13 Metoprolol Tartrate 50 mg PO DAILY 09/03/13 Dulaglutide [Trulicity] 0.75 mg SQ 01/02/18 Fluticasone/Vilanterol [Breo 1 each IH 01/02/18 Ellipta 200-25 Mcg INH] Insulin Glargine,Hum.rec.anlog 56 unit BID 01/02/18 [Lantus] Sitagliptin Phosphate [Januvia] 25 mg PO DAILY 01/02/18 Tiotropium [place] [Spiriva] 18 mcg IH 01/02/18 - Family History Paternal - - The patient's father at the age of 78 with history of chronic obstructive pulmonary disease. The patient's mother at the age of 84 with history of chronic obstructive pulmonary disease. Smoking Status: Former smoker Tobacco Use: Non-smoker Review of Systems Constitutional: Denies: Chills, Fever, Weight Change Eyes: Denies: Pain, Vision Change HEENT: Denies: Difficulty Hearing, Difficulty Swallowing, Sinus Congestion Cardiovascular: Denies: Chest Pain, Palpitations Respiratory: Denies: Cough, Shortness of Breath Gastrointestinal: Denies: Diarrhea, Nausea, Vomiting Genitourinary: Denies: Dysuria, Hematuria Endocrine: Denies: Heat/ Cold Intolerance, Polydipsia, Polyuria Hematologic/ Lymphatic: Denies: Easy Bruising, Easy Bleeding - Physical Exam Vital Signs Temp Pulse Resp BP Pulse Ox 96.7 F L 100 18 130/76 H 94 09/18/18 08:05 09/18/18 08:05 09/18/18 08:05 09/18/18 08:05 08/22/18 00:54 General: Alert, Oriented x3, Cooperative, No apparent distress, Well developed, Well nourished HEENT: Atraumatic, PERRLA, EOMI, Normocephalic Oral: Moist Mucosa Neck: No JVD Lungs: Normal air movement Abdomen: Non-Distended Extremities: No clubbing, No cyanosis, No Calf Tenderness, - - Slight swelling and edema is noted in the left lower extremity. The wound on the left lateral calf appears slightly larger in size. The base of the wound is generally pink and healthy in appearance. There is a moderate amount of bioburden. Wound dimensions are documented elsewhere. There is no sign of infection or cellulitis. Skin: No rashes Wound Measurements and Assessment WC - Nurse 1 - General Ulcer Measurement Start: 09/11/18 08:10 Freq: Status: Active Protocol: Activity Type Activity Date Activity User E-Sign Co-Sign Detail Recorded Client Recorded Date Recorded By Document 09/18/18 08:05 [email or web address] [id number] 09/18/18 08:08 DL 09/18/18 08:05 Wound Center Nurse 1 [Ulcer Assessment] #1 L Vaz -Current Size (cm) - Length 1.4 -Current Size (cm) - Width 1.1 -Current Size (cm) - Depth 0.1 -Total Square Cm 1.54 -Photo Taken No -Exudate Amt Small -Exudate Type Serosanguineous -Wound Margin Distinct, Outline Attached -Granulation Amt Small (1-33%) -Granulation Quality [place] -Necrosis Amt Small (1-33%) -Necrotic Tissue Type Adherent Slough -Structure Exposed N/A -Texture (Ketty-wound Skin Appearance) Localized Edema Scarring -Moisture (Ketty-wound Skin Appearance No Abnormality ) -Color (Ketty-wound Skin Appearance) Hemosiderin Staining -Temperature ([place]et[place]-wound Skin No Abnormality Appearance) (Pt Warm) -Tenderness on Palpation ([place]etty-wound No Skin Appearance) -Ulcer Cleansing Wound Cleanser -Foul Odor after Cleansing No -Anesthetic Used 4% Lidocaine Solution [Edema Assessment] -Point of Measurement (cm from the 42.8 distal point) -Point of measurement (cm from the 23.4 medial instep) WC - Nurse 2 - General Ulcer CM Notes Start: 05/21/19 08:10 Freq: Status: Active Protocol: Activity Type Activity Date Activity User E-Sign Co-Sign Detail Recorded Client Recorded Date Recorded By Document 09/18/18 08:26 AN [id number] 09/18/18 08:30 AN 09/18/18 08:26 Wound Center Nurse 2 [Procedure/Treatment] #1 L Vaz -Time 08:30 -Correct Patient Yes -Correct Side, Site, Position Yes -Correct Procedure Yes -Procedure Performed Yes -Type of Procedure Debridement -Clinical Debridement Subcutaneous -Post Debridement Size (cm) - Length 1.5 -Post Debridement Size (cm) - Width 1.2 -Post Debridement Size (cm) - Depth 0.1 -Total Square Cm 1.80 -Wound/Ulcer Outcome Not Healed -Ulcer Cleansing Rinsed/ Irrigated with Saline -Foul Odor after Cleansing No -Bioengineered Tissue No -Bleeding Controlled with Pressure -Offloading No -Type of Offloading Total Contact Cast (TCC) -Treatment Response Procedure Tolerated Well [See Physician Procedure note for Specifics] Pain Scale: 0-10 Numeric [Pain] -Is Patient Pain Free? Yes Musculoskeletal: No Muscle Wasting Neurological: Cranial nerves II-XII grossly intact, Neuro grossly intact Psych/Mental Status: Normal Affect, Appropriate, Alert and oriented to time, place, person, mood and affect Debridement Note Post-Debridement Measurements/Treatment WC - Nurse 2 - General Ulcer CM Notes Start: 09/11/18 08:10 Freq: Status: Active Protocol: Activity Type Activity Date Activity User E-Sign Co-Sign Detail Recorded Client Recorded Date Recorded By Document 09/11/18 08:38 DV [id number] 09/11/18 08:42 DV Document 09/18/18 08:26 AN [id number] 09/18/18 08:30 AN 09/11/18 09/18/18 08:38 08:26 Wound Center Nurse 2 #1 L Vaz -Time 08:39 08:30 -Correct Patient Yes Yes -Correct Side, Site, Position Yes Yes -Correct Procedure Yes Yes -Procedure Performed Yes Yes -Type of Procedure Debridement Debridement -Clinical Debridement Subcutaneous Subcutaneous -Post Debridement Size (cm) - Length 0.2 1.5 -Post Debridement Size (cm) - Width 0.2 1.2 -Post Debridement Size (cm) - Depth 0.1 0.1 -Total Square Cm 0.04 1.80 -Wound/Ulcer Outcome Not Healed Not Healed -Ulcer Cleansing Rinsed/ Rinsed/ Irrigated with Irrigated with Saline Saline -Foul Odor after Cleansing No No -Bioengineered Tissue No No -Bleeding Controlled with Pressure Pressure -Offloading No No -Type of Offloading Total Contact Cast (TCC) -Treatment Response Procedure Procedure Tolerated Well Tolerated Well Pain Scale: 0-10 Numeric Is Patient Pain Free? Yes Yes Laterality: Left - Lateral calf Type of Debridement: Excisional debridement Anesthesia Used: 5% Lidocaine Gel Depth: Down to and including healthy tissue, in the subcutaneous layer Percentage of wound debrided: 100 Instrument Used: 5mm curette Tissue Removed: Nonviable tissue and bioburden Severity: Fat Layer Exposed Amount of bleeding with debridement: Mild Bleeding Controlled with: Compression and gauze Patient tolerated procedure well Assessment/Plan Active Problems Traumatic open wound of lower leg (Chronic) Leg swelling (Chronic) Edema of leg (Chronic) Assessment: This is a 57-year-old female who presented with a traumatic wound on the anterolateral aspect of the left calf. The injury occurred approximately 2 months prior to presentation, and has failed to heal appropriately. The patient presented with ralph, nonviable tissue within the wound itself. She is known to be a diabetic. Patient has undergone a battery of diagnostic tests, with results as follows: Glucose 150, sodium 140, potassium 4.8, chloride 103, BUN 15, creatinine 0.80, calcium 9.5, total protein 6.7, albumin 3.9, alkaline phosphatase 61, AST 20, ALT 35, hemoglobin A1c 8.3, white blood count 6.2, hemoglobin 14.2, hematocrit 41.1, platelets 253,000. The patient's past cultures were positive for Klebsiella pneumonia, pseudomonas aeruginosa, and Streptococcus. She was placed on Levaquin 750 mg p.o. daily for a total of 10 days, and completed her course. More recently, another culture was positive for Pseudomonas. The patient has completed another prescription for Levaquin 750 mg p.o. daily for 10 days. A noninvasive lower extremity arterial study was normal, revealing triphasic waveforms at ankle level bilaterally, normal resting ankle?brachial indices bilaterally, and normal digital-brachial indices bilaterally. A venous duplex examination reveals incompetence of the left great saphenous vein below the knee. The left small saphenous vein appears competent. Given this past holiday weekend, the patient appears to have overdone her activity, spending long hours outdoors working in her lawn and garden. As result, there is slight swelling in her left lower extremity. This may have had an adverse effect on her left lower extremity wound, which has increased slightly in size. Plan: The patient has shown good progress. We are to continue with the use of Aquacel topically, changed every day or every other day. The patient is to continue elevating her legs as much as possible. She is to redouble her efforts at elevation. Compression is to be continued as previously, using Tubigrip's. The patient will return in 1 week for reassessment. A noninvasive lower extremity arterial study was normal. She has been encouraged to elevate her lower extremities as much as possible, and to avoid prolonged idle sitting. The patient has been encouraged to assure adequate nutrition. Optimizing glycemic control has also been advised. The patient will return in 1 week for reassessment. Given her lack of progress, we may consider the use of a skin substitute once again, which have resulted in significant progress in the recent past. Influenza vaccine was not administered today. The patient is not a smoker. Patient weighs 265 pounds. She stands 5 feet 4 inches tall. Her BMI is 45.5, which places her in a class III category. Weight loss has been recommended, and collaboration with the patient's primary care physician has been recommended.
== END 2018-09-21 23:59 ==
LOC: WC 08:00
PROVIDERS: Family Provider Nurse Practitioner Primary Care; PCP Nurse Practitioner Primary Care; Referring Provider Surgery; Visit Provider Surgery
DX: S81.832A Puncture wound without foreign body, left lower leg, initial encounter (principal); W22.03XA Walked into furniture, initial encounter; R60.0 Localized edema; E11.9 Type 2 diabetes mellitus without complications; M79.89 Other specified soft tissue disorders; J44.9 Chronic obstructive pulmonary disease, unspecified; I25.10 Atherosclerotic heart disease of native coronary artery without angina pectoris; Z68.42 Body mass index [BMI] 45.0-49.9, adult; E66.01 Morbid (severe) obesity due to excess calories; Z79.82 Long term (current) use of aspirin; Z79.4 Long term (current) use of insulin; Z79.899 Other long term (current) drug therapy; Z87.891 Personal history of nicotine dependence
CPT/HCPCS: 11042

== ENCOUNTER 2018-10-16 08:00 | Outpatient (RCR) | payer OTHER, SELFPAY ==
[2018-09-22 00:41] VITALS: BP 130/76; PULSE 100; RESP 18; TEMP 35.9; O2SAT 94
[2018-09-25 08:05] VITALS: BP 151/73; PULSE 91; RESP 18; TEMP 36.2; BMI 46.1
--- NOTE | 2018-09-25 08:38 | HP.PCM_ITS ---
(1) Traumatic open wound of lower leg Status: Chronic Current Visit: Yes Qualifiers: Encounter type: subsequent encounter Laterality: left Qualified Code(s): S81.802D - Unspecified open wound, left lower leg, subsequent encounter Code(s): S81.809A - Unspecified open wound, unspecified lower leg, initial encounter (2) Leg swelling Status: Chronic Current Visit: Yes Code(s): M79.89 - Other specified soft tissue disorders (3) Edema of leg Status: Chronic Current Visit: Yes Code(s): R60.0 - Localized edema (4) Diabetes mellitus Status: Chronic Current Visit: No Qualifiers: Diabetes mellitus type: type 2 Code(s): E11.9 - Type 2 diabetes mellitus without complications (5) Morbid obesity with BMI of 45.0-49.9, adult Status: Chronic Current Visit: No Code(s): E66.01 - Morbid (severe) obesity due to excess calories; Z68.42 - Body mass index (BMI) 45.0-49.9, adult (6) COPD (chronic obstructive pulmonary disease) Status: Chronic Current Visit: No Code(s): J44.9 - Chronic obstructive pulmonary disease, unspecified (7) Coronary artery arteriosclerosis Status: Chronic Current Visit: No Code(s): I25.10 - Atherosclerotic heart disease of [place] coronary artery without angina pectoris History of Present Illness Chief Complaint: Traumatic open wound of the left lower extremity History of Wound: This is a 57-year-old diabetic female who was in her normal state of health until approximately 2 months prior to presentation. At that time, she sustained trauma to the anterolateral aspect of the left calf, striking her leg against the bed frame. A wound resulted, which has failed to heal in normal fashion. She subsequently struck her leg against the bed frame a second time, again injuring the left lower extremity in the same location. She claims to have chronic swelling in the left lower extremity, that precedes her current injury. She sleeps in a recumbent position at night. 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 Past Medical History Past Medical History: Chronic Problems Traumatic open wound of lower leg (Chronic) Leg swelling (Chronic) Edema of leg (Chronic) Diabetes mellitus (Chronic) Morbid obesity with BMI of 45.0-49.9, adult (Chronic) COPD (chronic obstructive pulmonary disease) (Chronic) Coronary artery arteriosclerosis (Chronic) Surgical History: - - The patient has a history of coronary artery stent placement. She has undergone open reduction and internal fixation of a left tibia fracture. She underwent right meniscus repair in the past. She is a Ab0. Allergies/Adverse Reactions: Allergies No Known Allergies Allergy (Verified 09/03/13 11:12) Home Medications: Ambulatory Orders Medication Instructions Recorded Aspirin E.C. [Ecotrin] 81 mg PO DAILY@0800 09/03/13 Hydrocodone/Acetaminophen [Vicodin 1 - 2 tablet PO Q6H PRN PRN 09/03/13 5-300 mg Tablet] Lisinopril 10 mg PO DAILY 09/03/13 Metformin [Metformin HCl] 1,000 mg PO BID 09/03/13 Metoprolol Tartrate 50 mg PO DAILY 09/03/13 Dulaglutide [Trulicity] 0.75 mg SQ 01/02/18 Fluticasone/Vilanterol [Breo 1 each IH 01/02/18 Ellipta 200-25 Mcg INH] Insulin Glargine,Hum.rec.anlog 56 unit BID 01/02/18 [Lantus] Sitagliptin Phosphate [Januvia] 25 mg PO DAILY 01/02/18 Tiotropium [place] [Spiriva] 18 mcg IH 01/02/18 - Family History Paternal - - The patient's father at the age of 78 with history of chronic obstructive pulmonary disease. The patient's mother at the age of 84 with history of chronic obstructive pulmonary disease. Smoking Status: Former smoker Tobacco Use: Non-smoker Review of Systems Constitutional: Denies: Chills, Fever, Weight Change Eyes: Denies: Pain, Vision Change HEENT: Denies: Difficulty Hearing, Difficulty Swallowing, Sinus Congestion Cardiovascular: Denies: Chest Pain, Palpitations Respiratory: Denies: Cough, Shortness of Breath Gastrointestinal: Denies: Diarrhea, Nausea, Vomiting Genitourinary: Denies: Dysuria, Hematuria Endocrine: Denies: Heat/ Cold Intolerance, Polydipsia, Polyuria Hematologic/ Lymphatic: Denies: Easy Bruising, Easy Bleeding - Physical Exam Vital Signs Temp Pulse Resp BP Pulse Ox 97.1 F L 91 18 151/73 H 94 09/25/18 08:05 09/25/18 08:05 09/25/18 08:05 09/25/18 08:05 09/22/18 00:41 General: Alert, Oriented x3, Cooperative, No apparent distress, Well developed, Well nourished HEENT: Atraumatic, PERRLA, EOMI, Normocephalic Oral: Moist Mucosa Neck: No JVD Lungs: Normal air movement Abdomen: Non-Distended Extremities: No clubbing, No cyanosis, No Calf Tenderness, - - Only very minimal swelling and edema are noted in the left lower extremity. The wound on the left lateral calf persists. It is slightly larger in size. The base of the ulceration is generally pink and healthy in appearance, with a mild amount of bioburden. Dimensions are documented elsewhere. There is no obvious sign of infection or cellulitis. Skin: No rashes Wound Measurements and Assessment WC - Nurse 1 - General Ulcer Measurement Start: 09/25/18 08:05 Freq: Status: Active Protocol: Activity Type Activity Date Activity User E-Sign Co-Sign Detail Recorded Client Recorded Date Recorded By Document 09/25/18 08:05 JOSE [id number] 09/25/18 08:10 JOSE 09/25/18 08:05 Wound Center Nurse 1 [Ulcer Assessment] #1 L Vaz -Combined with other wound No -Current Size (cm) - Length 1.4 -Current Size (cm) - Width 0.8 -Current Size (cm) - Depth 0.2 -Total Square Cm 1.12 -Photo Taken No -Epithelialization Small 1-33% -Tunneling No -Undermining/Tunneling No -Circular Undermining No -Exudate Amt Small -Exudate Type Serosanguineous -Wound Margin Flat & Intact -Granulation Amt Large (67-100%) -Granulation Quality Red -Slough/Fibrin Yes -Necrosis Amt Small (1-33%) -Necrotic Tissue Type Adherent Slough -Structure Exposed N/A -Texture (Ketty-wound Skin Appearance) Assessed Localized Edema -Moisture (Ketty-wound Skin Appearance Assessed ) Dry/Scaly -Color (Ketty-wound Skin Appearance) Assessed -Temperature (Ketty-wound Skin No Abnormality Appearance) (Pt Warm) -Tenderness on Palpation (Ketty-wound No Skin Appearance) -Ulcer Cleansing Rinsed/ Irrigated with Saline -Foul Odor after Cleansing No -Anesthetic Used 4% Lidocaine Solution [Edema Assessment] -Lower Limb Edema Present Yes -Left Calf (cm) 43.5 -Left Ankle (cm) 24.4 - Nurse 2 - General Ulcer CM Notes Start: 09/25/18 08:05 Freq: Status: Active Protocol: Activity Type Activity Date Activity User E-Sign Co-Sign Detail Recorded Client Recorded Date Recorded By Document 09/25/18 08:28 DV [id number] 09/25/18 08:31 DV 09/25/18 08:28 Wound Center Nurse 2 [Procedure/Treatment] #1 L Vaz -Time 08:30 -Correct Patient Yes -Correct Side, Site, Position Yes -Correct Procedure Yes -Procedure Performed Yes -Type of Procedure Debridement -Clinical Debridement Subcutaneous -Post Debridement Size (cm) - Length 1.5 -Post Debridement Size (cm) - Width 1.0 -Post Debridement Size (cm) - Depth 0.2 -Total Square Cm 1.50 -Wound/Ulcer Outcome Not Healed -Ulcer Cleansing Rinsed/ Irrigated with Saline -Foul Odor after Cleansing No -Bioengineered Tissue No -Bleeding Controlled with Pressure -Offloading No -Treatment Response Procedure Tolerated Well [See Physician Procedure note for Specifics] Pain Scale: 0-10 Numeric [Pain] -Is Patient Pain Free? Yes Musculoskeletal: No Muscle Wasting Neurological: Cranial nerves II-XII grossly intact, Neuro grossly intact Psych/Mental Status: Normal Affect, Appropriate, Alert and oriented to time, place, person, mood and affect Debridement Note Post-Debridement Measurements/Treatment WC - Nurse 2 - General Ulcer CM Notes Start: 09/25/18 08:05 Freq: Status: Active Protocol: Activity Type Activity Date Activity User E-Sign Co-Sign Detail Recorded Client Recorded Date Recorded By Document 09/25/18 08:28 DV [id number] 09/25/18 08:31 DV 09/25/18 08:28 Wound Center Nurse 2 #1 L Vaz -Time 08:30 -Correct Patient Yes -Correct Side, Site, Position Yes -Correct Procedure Yes -Procedure Performed Yes -Type of Procedure Debridement -Clinical Debridement Subcutaneous -Post Debridement Size (cm) - Length 1.5 -Post Debridement Size (cm) - Width 1.0 -Post Debridement Size (cm) - Depth 0.2 -Total Square Cm 1.50 -Wound/Ulcer Outcome Not Healed -Ulcer Cleansing Rinsed/ Irrigated with Saline -Foul Odor after Cleansing No -Bioengineered Tissue No -Bleeding Controlled with Pressure -Offloading No -Treatment Response Procedure Tolerated Well Pain Scale: 0-10 Numeric Is Patient Pain Free? Yes Laterality: Left - Lateral calf Type of Debridement: Excisional debridement Anesthesia Used: 5% Lidocaine Gel Depth: Down to and including healthy tissue, in the subcutaneous layer Percentage of wound debrided: 100 Instrument Used: 5mm curette Tissue Removed: Bioburden Severity: Fat Layer Exposed Amount of bleeding with debridement: Mild Bleeding Controlled with: Compression and gauze Patient tolerated procedure well Assessment/Plan Active Problems Traumatic open wound of lower leg (Chronic) Leg swelling (Chronic) Edema of leg (Chronic) Assessment: This is a 57-year-old female who presented with a traumatic wound on the anterolateral aspect of the left calf. The injury occurred approximately 2 months prior to presentation, and has failed to heal appropriately. The patient presented with ralph, nonviable tissue within the wound itself. She is known to be a diabetic. Patient has undergone a battery of diagnostic tests, with results as follows: Glucose 150, sodium 140, potassium 4.8, chloride 103, BUN 15, creatinine 0.80, calcium 9.5, total protein 6.7, albumin 3.9, alkaline phosphatase 61, AST 20, ALT 35, hemoglobin A1c 8.3, white blood count 6.2, hemoglobin 14.2, hematocrit 41.1, platelets 253,000. The patient's past cultures were positive for Klebsiella pneumonia, pseudomonas aeruginosa, and Streptococcus. She was placed on Levaquin 750 mg p.o. daily for a total of 10 days, and completed her course. More recently, another culture was positive for Pseudomonas. The patient has completed another prescription for Levaquin 750 mg p.o. daily for 10 days. A noninvasive lower extremity arterial study was normal, revealing triphasic waveforms at ankle level bilaterally, normal resting ankle?brachial indices bilaterally, and normal digital-brachial indices bilaterally. A venous duplex examination reveals incompetence of the left great saphenous vein below the knee. The left small saphenous vein appears competent. Plan: We are to continue with the use of Aquacel topically, changed every day or every other day. The patient is to continue elevating her legs as much as possible. She is to redouble her efforts at elevation. Compression is to be continued as previously, using Tubigrip's. However, a prescription has been provided for graduated compression stockings of 20 to 30 mmHg compression, knee-high length. Patient is to aquire these stockings within the next week. The patient will return in 1 week for reassessment. A noninvasive lower extremity arterial study was normal. She has been encouraged to elevate her lower extremities as much as possible, and to avoid prolonged idle sitting. The patient has been encouraged to assure adequate nutrition. Optimizing glycemic control has also been advised. The patient will return in 1 week for reassessment. Given her lack of progress, and the fact that her wound has increased in size, we may consider the use of a skin substitute once again, which has resulted in significant progress in the recent past. Only 5 of the 10 allowable skin substitutes have been used recently, and we will attempt to obtain preauthorization for additional applications of Grafix Prime. Swab cultures have been obtained today, for both aerobic and anaerobic growth. While there is no obvious sign of infection or cellulitis, the fact that there has been an increase in the size of her wound appears to warrant consideration of possible infection. Influenza vaccine was not administered today. The patient is not a smoker. Patient weighs 265 pounds. She stands 5 feet 4 inches tall. Her BMI is 45.5, which places her in a class III category. Weight loss has been recommended, and collaboration with the patient's primary care physician has been recommended.
[2018-10-02 08:06] VITALS: BP 153/81; PULSE 104; RESP 18; TEMP 36.5; BMI 46.1
--- NOTE | 2018-10-02 08:47 | HP.PCM_ITS ---
(1) Traumatic open wound of lower leg Status: Chronic Current Visit: Yes Qualifiers: Encounter type: subsequent encounter Laterality: left Qualified Code(s): S81.802D - Unspecified open wound, left lower leg, subsequent encounter Code(s): S81.809A - Unspecified open wound, unspecified lower leg, initial encounter (2) Leg swelling Status: Chronic Current Visit: Yes Code(s): M79.89 - Other specified soft tissue disorders (3) Edema of leg Status: Chronic Current Visit: Yes Code(s): R60.0 - Localized edema (4) Diabetes mellitus Status: Chronic Current Visit: No Qualifiers: Diabetes mellitus type: type 2 Code(s): E11.9 - Type 2 diabetes mellitus without complications (5) Morbid obesity with BMI of 45.0-49.9, adult Status: Chronic Current Visit: No Code(s): E66.01 - Morbid (severe) obesity due to excess calories; Z68.42 - Body mass index (BMI) 45.0-49.9, adult (6) COPD (chronic obstructive pulmonary disease) Status: Chronic Current Visit: No Code(s): J44.9 - Chronic obstructive pulmonary disease, unspecified (7) Coronary artery arteriosclerosis Status: Chronic Current Visit: No Code(s): I25.10 - Atherosclerotic heart disease of [place] coronary artery without angina pectoris History of Present Illness Date of Service: 10/02/18 Chief Complaint: Traumatic open wound of the left lower extremity History of Wound: This is a 57-year-old diabetic female who was in her normal state of health until approximately 2 months prior to presentation. At that time, she sustained trauma to the anterolateral aspect of the left calf, striking her leg against the bed frame. A wound resulted, which has failed to heal in normal fashion. She subsequently struck her leg against the bed frame a second time, again injuring the left lower extremity in the same location. She claims to have chronic swelling in the left lower extremity, that precedes her current injury. She sleeps in a recumbent position at night. 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 Past Medical History Past Medical History: Chronic Problems Traumatic open wound of lower leg (Chronic) Leg swelling (Chronic) Edema of leg (Chronic) Diabetes mellitus (Chronic) Morbid obesity with BMI of 45.0-49.9, adult (Chronic) COPD (chronic obstructive pulmonary disease) (Chronic) Coronary artery arteriosclerosis (Chronic) Surgical History: - - The patient has a history of coronary artery stent placement. She has undergone open reduction and internal fixation of a left tibia fracture. She underwent right meniscus repair in the past. She is a Ab0. Allergies/Adverse Reactions: Allergies No Known Allergies Allergy (Verified 09/03/13 11:12) Home Medications: Ambulatory Orders Medication Instructions Recorded Aspirin E.C. [Ecotrin] 81 mg PO DAILY@0800 09/03/13 Hydrocodone/Acetaminophen [Vicodin 1 - 2 tablet PO Q6H PRN PRN 09/03/13 5-300 mg Tablet] Lisinopril 10 mg PO DAILY 09/03/13 Metformin [Metformin HCl] 1,000 mg PO BID 09/03/13 Metoprolol Tartrate 50 mg PO DAILY 09/03/13 Dulaglutide [Trulicity] 0.75 mg SQ 01/02/18 Fluticasone/Vilanterol [Breo 1 each IH 01/02/18 Ellipta 200-25 Mcg INH] Insulin Glargine,Hum.rec.anlog 56 unit BID 01/02/18 [Lantus] Sitagliptin Phosphate [Januvia] 25 mg PO DAILY 01/02/18 Tiotropium [place] [Spiriva] 18 mcg IH 01/02/18 - Family History Paternal - - The patient's father at the age of 78 with history of chronic obstructive pulmonary disease. The patient's mother at the age of 84 with history of chronic obstructive pulmonary disease. Smoking Status: Former smoker Tobacco Use: Non-smoker Review of Systems Constitutional: Denies: Chills, Fever, Weight Change Eyes: Denies: Pain, Vision Change HEENT: Denies: Difficulty Hearing, Difficulty Swallowing, Sinus Congestion Cardiovascular: Denies: Chest Pain, Palpitations Respiratory: Denies: Cough, Shortness of Breath Gastrointestinal: Denies: Diarrhea, Nausea, Vomiting Genitourinary: Denies: Dysuria, Hematuria Endocrine: Denies: Heat/ Cold Intolerance, Polydipsia, Polyuria Hematologic/ Lymphatic: Denies: Easy Bruising, Easy Bleeding - Physical Exam Vital Signs Temp Pulse Resp BP Pulse Ox 97.7 F L 104 H 18 153/81 H 94 10/02/18 08:06 10/02/18 08:06 10/02/18 08:06 10/02/18 08:06 09/22/18 00:41 General: Alert, Oriented x3, Cooperative, No apparent distress, Well developed, Well nourished HEENT: Atraumatic, PERRLA, EOMI, Normocephalic Oral: Moist Mucosa Neck: No JVD Lungs: Normal air movement Abdomen: Non-Distended, Obese Extremities: No clubbing, No cyanosis, No Calf Tenderness, - - Only slight swelling and edema persist in the left lower extremity. The wound on the left lateral calf persists as well, slightly larger in size. Dimensions are documented elsewhere. There is a moderate amount of bioburden. There is no obvious sign of infection or cellulitis. Wound Measurements and Assessment WC - Nurse 1 - General Ulcer Measurement Start: 09/25/18 08:05 Freq: Status: Active Protocol: Activity Type Activity Date Activity User E-Sign Co-Sign Detail Recorded Client Recorded Date Recorded By Document 10/02/18 08:06 JOSE [id number] 10/02/18 08:12 JOSE 10/02/18 08:06 Wound Center Nurse 1 [Ulcer Assessment] #1 L Vaz -Combined with other wound No -Current Size (cm) - Length 1.1 -Current Size (cm) - Width 0.9 -Current Size (cm) - Depth 0.1 -Total Square Cm 0.99 -Photo Taken Yes -Epithelialization Small 1-33% -Tunneling No -Undermining/Tunneling No -Circular Undermining No -Exudate Amt Small -Exudate Type Serosanguineous -Wound Margin Flat & Intact -Granulation Amt Large (67-100%) -Granulation Quality Red -Slough/Fibrin Yes -Necrosis Amt Small (1-33%) -Necrotic Tissue Type Adherent Slough -Structure Exposed N/A -Texture (Ketty-wound Skin Appearance) Assessed Localized Edema -Moisture (Ketty-wound Skin Appearance Assessed ) Dry/Scaly -Color (Ketty-wound Skin Appearance) Assessed -Temperature (Ketty-wound Skin No Abnormality Appearance) (Pt Warm) -Tenderness on Palpation (Ketty-wound No Skin Appearance) -Ulcer Cleansing Rinsed/ Irrigated with Saline -Foul Odor after Cleansing No -Anesthetic Used 4% Lidocaine Solution [Edema Assessment] -Lower Limb Edema Present Yes -Left Calf (cm) 43.0 -Left Ankle (cm) 24.2 - Nurse 2 - General Ulcer CM Notes Start: 09/25/18 08:05 Freq: Status: Active Protocol: Activity Type Activity Date Activity User E-Sign Co-Sign Detail Recorded Client Recorded Date Recorded By Document 10/02/18 08:38 DV [id number] 10/02/18 08:41 DV 10/02/18 08:38 Wound Center Nurse 2 [Procedure/Treatment] #1 L Vaz -Time 08:39 -Correct Patient Yes -Correct Side, Site, Position Yes -Correct Procedure Yes -Procedure Performed Yes -Type of Procedure Debridement -Clinical Debridement Subcutaneous -Post Debridement Size (cm) - Length 1.5 -Post Debridement Size (cm) - Width 1.0 -Post Debridement Size (cm) - Depth 0.1 -Total Square Cm 1.50 -Wound/Ulcer Outcome Not Healed -Ulcer Cleansing Rinsed/ Irrigated with Saline -Foul Odor after Cleansing No -Bioengineered Tissue No -Bleeding Controlled with Pressure -Offloading No -Treatment Response Procedure Tolerated Well [See Physician Procedure note for Specifics] Pain Scale: 0-10 Numeric [Pain] -Is Patient Pain Free? Yes Musculoskeletal: No Muscle Wasting Neurological: Cranial nerves II-XII grossly intact, Neuro grossly intact Psych/Mental Status: Normal Affect, Appropriate, Alert and oriented to time, place, person, mood and affect Debridement Note Post-Debridement Measurements/Treatment WC - Nurse 2 - General Ulcer CM Notes Start: 09/25/18 08:05 Freq: Status: Active Protocol: Activity Type Activity Date Activity User E-Sign Co-Sign Detail Recorded Client Recorded Date Recorded By Document 09/25/18 08:28 DV [id number] 09/25/18 08:31 DV Document 10/02/18 08:38 DV [id number] 10/02/18 08:41 DV 09/25/18 10/02/18 08:28 08:38 Wound Center Nurse 2 #1 L Vaz -Time 08:30 08:39 -Correct Patient Yes Yes -Correct Side, Site, Position Yes Yes -Correct Procedure Yes Yes -Procedure Performed Yes Yes -Type of Procedure Debridement Debridement -Clinical Debridement Subcutaneous Subcutaneous -Post Debridement Size (cm) - Length 1.5 1.5 -Post Debridement Size (cm) - Width 1.0 1.0 -Post Debridement Size (cm) - Depth 0.2 0.1 -Total Square Cm 1.50 1.50 -Wound/Ulcer Outcome Not Healed Not Healed -Ulcer Cleansing Rinsed/ Rinsed/ Irrigated with Irrigated with Saline Saline -Foul Odor after Cleansing No No -Bioengineered Tissue No No -Bleeding Controlled with Pressure Pressure -Offloading No No -Treatment Response Procedure Procedure Tolerated Well Tolerated Well Pain Scale: 0-10 Numeric Is Patient Pain Free? Yes Yes Laterality: Left - Lateral calf Anesthesia Used: 5% Lidocaine Gel Depth: Down to and including healthy tissue, in the subcutaneous layer Percentage of wound debrided: 100 Instrument Used: 5mm curette Tissue Removed: Bioburden and nonviable tissue Severity: Fat Layer Exposed Amount of bleeding with debridement: Mild Bleeding Controlled with: Compression and gauze Patient tolerated procedure well Assessment/Plan Active Problems Traumatic open wound of lower leg (Chronic) Leg swelling (Chronic) Edema of leg (Chronic) Assessment: This is a 57-year-old female who presented with a traumatic wound on the anterolateral aspect of the left calf. The injury occurred approximately 2 months prior to presentation, and has failed to heal appropriately. The patient presented with ralph, nonviable tissue within the wound itself. She is known to be a diabetic. Patient has undergone a battery of diagnostic tests, with results as follows: Glucose 150, sodium 140, potassium 4.8, chloride 103, BUN 15, creatinine 0.80, calcium 9.5, total protein 6.7, albumin 3.9, alkaline phosphatase 61, AST 20, ALT 35, hemoglobin A1c 8.3, white blood count 6.2, hemoglobin 14.2, hematocrit 41.1, platelets 253,000. The patient's culture from last week was positive for Staphylococcus lugundensis. We are to treat patient with Keflex 500 mg p.o. 3 times daily for 10 days. A noninvasive lower extremity arterial study was normal, revealing triphasic waveforms at ankle level bilaterally, normal resting ankle?brachial indices bilaterally, and normal digital-brachial indices bilaterally. A venous duplex examination reveals in competence of the left great saphenous vein below the knee. The left small saphenous vein appears competent. Plan: We are to continue with the use of Aquacel/Melgisorb topically, changed every day or every other day. The patient is to continue elevating her legs as much as possible. She is to redouble her efforts at elevation. Compression is to be continued as previously, using Tubigrip's. However, a prescription has been provided for graduated compression stockings of 20 to 30 mmHg compression, knee-high length. Patient is to aquire these stockings soon. The patient will return in 1 week for reassessment. A noninvasive lower extremity arterial study was normal. She has been encouraged to elevate her lower extremities as much as possible, and to avoid prolonged idle sitting. The patient has been encouraged to assure adequate nutrition. Optimizing glycemic control has also been advised. The patient will return in 1 week for reassessment. Given her lack of progress, and the fact that her wound has increased in size, we may consider the use of a skin substitute once again, which has resulted in significant progress in the recent past. Only 5 of the 10 allowable skin substitutes have been used recently, and we will attempt to obtain preauthorization for additional applications of Grafix Prime. The patient will be started on Keflex 500 mg p.o. 3 times daily for 10 days, as the result of her recent positive wound culture. Influenza vaccine was not administered today. The patient is not a smoker. Patient weighs 265 pounds. She stands 5 feet 4 inches tall. Her BMI is 45.5, which places her in a class III category. Weight loss has been recommended, and collaboration with the patient's primary care physician has been recommended.
[2018-10-09 08:11] VITALS: BP 163/95; PULSE 111; RESP 18; TEMP 36.7; BMI 46.1
--- NOTE | 2018-10-09 08:41 | PCM.WC.HP ---
(1) Traumatic open wound of lower leg Status: Chronic Current Visit: Yes Qualifiers: Encounter type: subsequent encounter Laterality: left Qualified Code(s): S81.802D - Unspecified open wound, left lower leg, subsequent encounter Code(s): S81.809A - Unspecified open wound, unspecified lower leg, initial encounter (2) Leg swelling Status: Chronic Current Visit: Yes Code(s): M79.89 - Other specified soft tissue disorders (3) Edema of leg Status: Chronic Current Visit: Yes Code(s): R60.0 - Localized edema (4) Diabetes mellitus Status: Chronic Current Visit: No Qualifiers: Diabetes mellitus type: type 2 Code(s): E11.9 - Type 2 diabetes mellitus without complications (5) Morbid obesity with BMI of 45.0-49.9, adult Status: Chronic Current Visit: No Code(s): E66.01 - Morbid (severe) obesity due to excess calories; Z68.42 - Body mass index (BMI) 45.0-49.9, adult (6) COPD (chronic obstructive pulmonary disease) Status: Chronic Current Visit: No Code(s): J44.9 - Chronic obstructive pulmonary disease, unspecified (7) Coronary artery arteriosclerosis Status: Chronic Current Visit: No Code(s): I25.10 - Atherosclerotic heart disease of [place] coronary artery without angina pectoris History of Present Illness Date of Service: 10/09/18 Chief Complaint: Traumatic open wound of the left lower extremity History of Wound: This is a 57-year-old diabetic female who was in her normal state of health until approximately 2 months prior to presentation. At that time, she sustained trauma to the anterolateral aspect of the left calf, striking her leg against the bed frame. A wound resulted, which has failed to heal in normal fashion. She subsequently struck her leg against the bed frame a second time, again injuring the left lower extremity in the same location. She claims to have chronic swelling in the left lower extremity, that precedes her current injury. She sleeps in a recumbent position at night. 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 Past Medical History Past Medical History: Chronic Problems Traumatic open wound of lower leg (Chronic) Leg swelling (Chronic) Edema of leg (Chronic) Diabetes mellitus (Chronic) Morbid obesity with BMI of 45.0-49.9, adult (Chronic) COPD (chronic obstructive pulmonary disease) (Chronic) Coronary artery arteriosclerosis (Chronic) Surgical History: - - The patient has a history of coronary artery stent placement. She has undergone open reduction and internal fixation of a left tibia fracture. She underwent right meniscus repair in the past. She is a Ab0. Allergies/Adverse Reactions: Allergies No Known Allergies Allergy (Verified 09/03/13 11:12) Home Medications: Ambulatory Orders Medication Instructions Recorded Aspirin E.C. [Ecotrin] 81 mg PO DAILY@0800 09/03/13 Hydrocodone/Acetaminophen [Vicodin 1 - 2 tablet PO Q6H PRN PRN 09/03/13 5-300 mg Tablet] Lisinopril 10 mg PO DAILY 09/03/13 Metformin [Metformin HCl] 1,000 mg PO BID 09/03/13 Metoprolol Tartrate 50 mg PO DAILY 09/03/13 Dulaglutide [Trulicity] 0.75 mg SQ 01/02/18 Fluticasone/Vilanterol [Breo 1 each IH 01/02/18 Ellipta 200-25 Mcg INH] Insulin Glargine,Hum.rec.anlog 56 unit BID 01/02/18 [Lantus] Sitagliptin Phosphate [Januvia] 25 mg PO DAILY 01/02/18 Tiotropium [place] [Spiriva] 18 mcg IH 01/02/18 - Family History Paternal - - The patient's father at the age of 78 with history of chronic obstructive pulmonary disease. The patient's mother at the age of 84 with history of chronic obstructive pulmonary disease. Smoking Status: Former smoker Tobacco Use: Non-smoker Review of Systems Constitutional: Denies: Chills, Fever, Weight Change Eyes: Denies: Pain, Vision Change HEENT: Denies: Difficulty Hearing, Difficulty Swallowing, Sinus Congestion Cardiovascular: Denies: Chest Pain, Palpitations Respiratory: Denies: Cough, Shortness of Breath Gastrointestinal: Denies: Diarrhea, Nausea, Vomiting Genitourinary: Denies: Dysuria, Hematuria Endocrine: Denies: Heat/ Cold Intolerance, Polydipsia, Polyuria Hematologic/ Lymphatic: Denies: Easy Bruising, Easy Bleeding - Physical Exam Vital Signs Temp Pulse Resp BP Pulse Ox 98.0 F 111 H 18 163/95 H 94 10/09/18 08:11 10/09/18 08:11 10/09/18 08:11 10/09/18 08:11 09/22/18 00:41 General: Alert, Oriented x3, Cooperative, No apparent distress, Well developed, Well nourished HEENT: Atraumatic, PERRLA, EOMI, Normocephalic Oral: Moist Mucosa Neck: No JVD Lungs: Normal air movement Abdomen: Non-Distended Extremities: No clubbing, No cyanosis, No edema, No Calf Tenderness, - - There is no significant swelling or edema in the patient's left lower extremity. The wound on the left lateral calf persists. It is generally pink and healthy in appearance, with a small amount of bioburden. There is no sign of infection or cellulitis. Dimensions are documented elsewhere. Skin: No rashes Wound Measurements and Assessment WC - Nurse 1 - General Ulcer Measurement Start: 09/25/18 08:05 Freq: Status: Active Protocol: Activity Type Activity Date Activity User E-Sign Co-Sign Detail Recorded Client Recorded Date Recorded By Document 10/09/18 08:11 [id number] 10/09/18 08:12 10/09/18 08:11 Wound Center Nurse 1 [Ulcer Assessment] #1 L Vaz -Combined with other wound No -Current Size (cm) - Length 1.2 -Current Size (cm) - Width 1.0 -Current Size (cm) - Depth 0.2 -Total Square Cm 1.20 -Photo Taken No -Epithelialization None Present -Tunneling No -Undermining/Tunneling No -Circular Undermining No -Exudate Amt Small -Exudate Type Serosanguineous -Wound Margin Flat & Intact -Granulation Amt Large (67-100%) -Granulation Quality Red -Slough/Fibrin Yes -Necrosis Amt Small (1-33%) -Necrotic Tissue Type Adherent Slough -Structure Exposed N/A -Texture (Ketty-wound Skin Appearance) Assessed, Localized Edema -Moisture (Ketty-wound Skin Appearance Assessed,Dry/ ) Scaly -Color (Ketty-wound Skin Appearance) Assessed -Temperature (Ketty-wound Skin No Abnormality Appearance) (Pt Warm) -Tenderness on Palpation (Ketty-wound No Skin Appearance) -Ulcer Cleansing Rinsed/ Irrigated with Saline -Foul Odor after Cleansing No -Anesthetic Used 4% Lidocaine Solution [Edema Assessment] -Lower Limb Edema Present Yes -Left Calf (cm) 43.0 -Left Ankle (cm) 23.8 WC - Nurse 2 - General Ulcer CM Notes Start: 09/25/18 08:05 Freq: Status: Active Protocol: Activity Type Activity Date Activity User E-Sign Co-Sign Detail Recorded Client Recorded Date Recorded By Document 10/09/18 08:30 DV [id number] 10/09/18 08:37 DV 10/09/18 08:30 Wound Center Nurse 2 [Procedure/Treatment] #1 L Vaz -Time 08:20 -Correct Patient Yes -Correct Side, Site, Position Yes -Correct Procedure Yes -Procedure Performed Yes -Type of Procedure Debridement -Clinical Debridement Subcutaneous -Post Debridement Size (cm) - Length 1.5 -Post Debridement Size (cm) - Width 1.0 -Post Debridement Size (cm) - Depth 0.1 -Total Square Cm 1.50 -Wound/Ulcer Outcome Not Healed -Ulcer Cleansing Rinsed/ Irrigated with Saline -Foul Odor after Cleansing No -Bioengineered Tissue Yes -Type of bioengineered Tissue GRAFIX-Pime -Expiration Date 05/10/19 -Product Lot Number [id number] -Percent Used 100 -Bleeding Controlled with Pressure -Offloading No -Treatment Response Procedure Tolerated Well [See Physician Procedure note for Specifics] Pain Scale: 0-10 Numeric [Pain] -Is Patient Pain Free? Yes Musculoskeletal: No Muscle Wasting Neurological: Cranial nerves II-XII grossly intact, Neuro grossly intact Psych/Mental Status: Normal Affect, Appropriate, Alert and oriented to time, place, person, mood and affect Debridement Note Post-Debridement Measurements/Treatment - Nurse 2 - General Ulcer CM Notes Start: 09/25/18 08:05 Freq: Status: Active Protocol: Activity Type Activity Date Activity User E-Sign Co-Sign Detail Recorded Client Recorded Date Recorded By Document 09/25/18 08:28 DV [id number] 09/25/18 08:31 DV Document 10/02/18 08:38 DV [id number] 10/02/18 08:41 DV Document 10/09/18 08:30 DV [id number] 10/09/18 08:37 DV 09/25/18 10/02/18 10/09/18 08:28 08:38 08:30 Wound Center Nurse 2 #1 L Vaz -Time 08:30 08:39 08:20 -Correct Patient Yes Yes Yes -Correct Side, Site, Position Yes Yes Yes -Correct Procedure Yes Yes Yes -Procedure Performed Yes Yes Yes -Type of Procedure Debridement Debridement Debridement -Clinical Debridement Subcutaneous Subcutaneous Subcutaneous -Post Debridement Size (cm) - Length 1.5 1.5 1.5 -Post Debridement Size (cm) - Width 1.0 1.0 1.0 -Post Debridement Size (cm) - Depth 0.2 0.1 0.1 -Total Square Cm 1.50 1.50 1.50 -Wound/Ulcer Outcome Not Healed Not Healed Not Healed -Ulcer Cleansing Rinsed/ Rinsed/ Rinsed/ Irrigated with Irrigated with Irrigated with Saline Saline Saline -Foul Odor after Cleansing No No No -Bioengineered Tissue No No Yes -Type of bioengineered Tissue GRAFIX-Pime -Expiration Date 05/10/19 -Product Lot Number [id number] -Percent Used 100 -Bleeding Controlled with Pressure Pressure Pressure -Offloading No No No -Treatment Response Procedure Procedure Procedure Tolerated Well Tolerated Well Tolerated Well Pain Scale: 0-10 Numeric Is Patient Pain Free? Yes Yes Yes Laterality: Left - Lateral calf Type of Debridement: Excisional debridement Anesthesia Used: 5% Lidocaine Gel Depth: Down to and including healthy tissue, in the subcutaneous layer Percentage of wound debrided: 100 Instrument Used: 5mm curette Tissue Removed: Bioburden and nonviable tissue Severity: Fat Layer Exposed Amount of bleeding with debridement: Mild Bleeding Controlled with: Compression and gauze Patient tolerated procedure well A standard excisional debridement was performed, which was well-tolerated by the patient. Thereafter, a [address] Prime allograft was applied topically. Wound Veil and gauze were then placed, and secured using Steri-Strips. The procedure was well-tolerated. Assessment/Plan Active Problems Traumatic open wound of lower leg (Chronic) Leg swelling (Chronic) Edema of leg (Chronic) Assessment: This is a 57-year-old female who presented with a traumatic wound on the anterolateral aspect of the left calf. The injury occurred approximately 2 months prior to presentation, and has failed to heal appropriately. The patient presented with ralph, nonviable tissue within the wound itself. She is known to be a diabetic. Patient has undergone a battery of diagnostic tests, with results as follows: Glucose 150, sodium 140, potassium 4.8, chloride 103, BUN 15, creatinine 0.80, calcium 9.5, total protein 6.7, albumin 3.9, alkaline phosphatase 61, AST 20, ALT 35, hemoglobin A1c 8.3, white blood count 6.2, hemoglobin 14.2, hematocrit 41.1, platelets 253,000. A noninvasive lower extremity arterial study was normal, revealing triphasic waveforms at ankle level bilaterally, normal resting ankle?brachial indices bilaterally, and normal digital-brachial indices bilaterally. A venous duplex examination reveals incompetence of the left great saphenous vein below the knee. The left small saphenous vein appears competent. Plan: Preauthorization has been granted, and a Grafix PL Prime allograft was placed today. The site will be left undisturbed. The patient is to continue using Tubigrip's for compression on a daily basis. The patient is to continue elevating her legs as much as possible. A prescription has been provided for graduated compression stockings of 20 to 30 mmHg compression, knee-high length. Patient is to aquire these stockings soon. The patient will return in 1 week for reassessment. A noninvasive lower extremity arterial study was normal. She has been encouraged to elevate her lower extremities as much as possible, and to avoid prolonged idle sitting. The patient has been encouraged to assure adequate nutrition. Optimizing glycemic control has also been advised. The patient will return in 1 week for reassessment. Influenza vaccine was not administered today. The patient is not a smoker. Patient weighs 265 pounds. She stands 5 feet 4 inches tall. Her BMI is 45.5, which places her in a class III category. Weight loss has been recommended, and collaboration with the patient's primary care physician has been recommended.
[2018-10-16 08:09] VITALS: BP 154/84; PULSE 108; RESP 18; TEMP 36.5; BMI 46.1
--- NOTE | 2018-10-16 08:36 | HP.PCM_ITS ---
(1) Traumatic open wound of lower leg Status: Chronic Current Visit: Yes Qualifiers: Encounter type: subsequent encounter Laterality: left Qualified Code(s): S81.802D - Unspecified open wound, left lower leg, subsequent encounter Code(s): S81.809A - Unspecified open wound, unspecified lower leg, initial encounter (2) Leg swelling Status: Chronic Current Visit: Yes Code(s): M79.89 - Other specified soft tissue disorders (3) Edema of leg Status: Chronic Current Visit: Yes Code(s): R60.0 - Localized edema (4) Diabetes mellitus Status: Chronic Current Visit: No Qualifiers: Diabetes mellitus type: type 2 Code(s): E11.9 - Type 2 diabetes mellitus without complications (5) Morbid obesity with BMI of 45.0-49.9, adult Status: Chronic Current Visit: No Code(s): E66.01 - Morbid (severe) obesity due to excess calories; Z68.42 - Body mass index (BMI) 45.0-49.9, adult (6) COPD (chronic obstructive pulmonary disease) Status: Chronic Current Visit: No Code(s): J44.9 - Chronic obstructive pulmonary disease, unspecified (7) Coronary artery arteriosclerosis Status: Chronic Current Visit: No Code(s): I25.10 - Atherosclerotic heart disease of [place] coronary artery without angina pectoris History of Present Illness Date of Service: 10/16/18 Chief Complaint: Traumatic open wound of the left lower extremity History of Wound: This is a 57-year-old diabetic female who was in her normal state of health until approximately 2 months prior to presentation. At that time, she sustained trauma to the anterolateral aspect of the left calf, striking her leg against the bed frame. A wound resulted, which has failed to heal in normal fashion. She subsequently struck her leg against the bed frame a second time, again injuring the left lower extremity in the same location. She claims to have chronic swelling in the left lower extremity, that precedes her current injury. She sleeps in a recumbent position at night. 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 Past Medical History Past Medical History: Chronic Problems Traumatic open wound of lower leg (Chronic) Leg swelling (Chronic) Edema of leg (Chronic) Diabetes mellitus (Chronic) Morbid obesity with BMI of 45.0-49.9, adult (Chronic) COPD (chronic obstructive pulmonary disease) (Chronic) Coronary artery arteriosclerosis (Chronic) Surgical History: - - The patient has a history of coronary artery stent placement. She has undergone open reduction and internal fixation of a left tibia fracture. She underwent right meniscus repair in the past. She is a Ab0. Allergies/Adverse Reactions: Allergies No Known Allergies Allergy (Verified 09/03/13 11:12) Home Medications: Ambulatory Orders Medication Instructions Recorded Aspirin E.C. [Ecotrin] 81 mg PO DAILY@0800 09/03/13 Hydrocodone/Acetaminophen [Vicodin 1 - 2 tablet PO Q6H PRN PRN 09/03/13 5-300 mg Tablet] Lisinopril 10 mg PO DAILY 09/03/13 Metformin [Metformin HCl] 1,000 mg PO BID 09/03/13 Metoprolol Tartrate 50 mg PO DAILY 09/03/13 Dulaglutide [Trulicity] 0.75 mg SQ 01/02/18 Fluticasone/Vilanterol [Breo 1 each IH 01/02/18 Ellipta 200-25 Mcg INH] Insulin Glargine,Hum.rec.anlog 56 unit BID 01/02/18 [Lantus] Sitagliptin Phosphate [Januvia] 25 mg PO DAILY 01/02/18 Tiotropium [place] [Spiriva] 18 mcg IH 01/02/18 - Family History Paternal - - The patient's father at the age of 78 with history of chronic obstructive pulmonary disease. The patient's mother at the age of 84 with history of chronic obstructive pulmonary disease. Smoking Status: Former smoker Tobacco Use: Non-smoker Review of Systems Constitutional: Denies: Chills, Fever, Weight Change Eyes: Denies: Pain, Vision Change HEENT: Denies: Difficulty Hearing, Difficulty Swallowing, Sinus Congestion Cardiovascular: Denies: Chest Pain, Palpitations Respiratory: Denies: Cough, Shortness of Breath Gastrointestinal: Denies: Diarrhea, Nausea, Vomiting Genitourinary: Denies: Dysuria, Hematuria Endocrine: Denies: Heat/ Cold Intolerance, Polydipsia, Polyuria Hematologic/ Lymphatic: Denies: Easy Bruising, Easy Bleeding - Physical Exam Vital Signs Temp Pulse Resp BP Pulse Ox 97.7 F L 108 H 18 154/84 H 94 10/16/18 08:09 10/16/18 08:09 10/16/18 08:09 10/16/18 08:09 09/22/18 00:41 General: Alert, Oriented x3, Cooperative, No apparent distress, Well developed, Well nourished HEENT: Atraumatic, PERRLA, EOMI, Normocephalic Oral: Moist Mucosa Neck: No JVD Lungs: Normal air movement Abdomen: Non-Distended Extremities: No clubbing, No cyanosis, No edema, No Calf Tenderness, - - No significant swelling or edema are noted in the left lower extremity. The ulceration on the left lateral calf is smaller in size. There is evidence of peripheral epithelialization. The base of the ulceration is pink and healthy in appearance, with only a small amount of bioburden. There is no sign of infection or cellulitis. Dimensions are documented elsewhere. Skin: No rashes Wound Measurements and Assessment WC - Nurse 1 - General Ulcer Measurement Start: 09/25/18 08:05 Freq: Status: Active Protocol: Activity Type Activity Date Activity User E-Sign Co-Sign Detail Recorded Client Recorded Date Recorded By Document 10/16/18 08:09 JOSE [id number] 10/16/18 08:10 JOSE 10/16/18 08:09 Wound Center Nurse 1 [Ulcer Assessment] #1 L Vaz -Combined with other wound No -Current Size (cm) - Length 1.2 -Current Size (cm) - Width 1.0 -Current Size (cm) - Depth 0.1 -Total Square Cm 1.20 -Photo Taken Yes -Epithelialization Medium 34-66% -Tunneling No -Undermining/Tunneling No -Circular Undermining No -Exudate Amt Medium -Exudate Type Serosanguineous -Wound Margin Flat & Intact -Granulation Amt Large (67-100%) -Granulation Quality Red -Slough/Fibrin Yes -Necrosis Amt Small (1-33%) -Necrotic Tissue Type Adherent Slough -Structure Exposed N/A -Texture (Ketty-wound Skin Appearance) Assessed, Localized Edema -Moisture (Ketty-wound Skin Appearance Assessed,Dry/ ) Scaly -Color (Ketty-wound Skin Appearance) Assessed -Temperature ([place]etty-wound Skin No Abnormality Appearance) (Pt Warm) -Tenderness on Palpation (Ketty-wound No Skin Appearance) -Ulcer Cleansing Rinsed/ Irrigated with Saline -Foul Odor after Cleansing No -Anesthetic Used 4% Lidocaine Solution [Edema Assessment] -Lower Limb Edema Present Yes -Left Calf (cm) 44.2 -Left Ankle (cm) 24.2 - Nurse 2 - General Ulcer CM Notes Start: 09/25/18 08:05 Freq: Status: Active Protocol: Activity Type Activity Date Activity User E-Sign Co-Sign Detail Recorded Client Recorded Date Recorded By Document 10/16/18 08:28 DV [id number] 10/16/18 08:35 DV 10/16/18 08:28 Wound Center Nurse 2 [Procedure/Treatment] #1 L Vaz -Time 08:28 -Correct Patient Yes -Correct Side, Site, Position Yes -Correct Procedure Yes -Procedure Performed Yes -Type of Procedure Debridement -Clinical Debridement Subcutaneous -Post Debridement Size (cm) - Length 0.6 -Post Debridement Size (cm) - Width 0.8 -Post Debridement Size (cm) - Depth 0.1 -Total Square Cm 0.48 -Wound/Ulcer Outcome Not Healed -Ulcer Cleansing Rinsed/ Irrigated with Saline -Foul Odor after Cleansing No -Bioengineered Tissue No -Type of bioengineered Tissue GRAFIX-Pime -Expiration Date 08/01/19 -Product Lot Number [id number] -Percent Used 100 -Topical Lidocaine (%) 5 -Bleeding Controlled with Pressure -Offloading No -Treatment Response Procedure Tolerated Well [See Physician Procedure note for Specifics] Pain Scale: 0-10 Numeric [Pain] -Is Patient Pain Free? Yes Musculoskeletal: No Muscle Wasting Neurological: Cranial nerves II-XII grossly intact, Neuro grossly intact Psych/Mental Status: Normal Affect, Appropriate, Alert and oriented to time, place, person, mood and affect Debridement Note Post-Debridement Measurements/Treatment - Nurse 2 - General Ulcer CM Notes Start: 09/25/18 08:05 Freq: Status: Active Protocol: Activity Type Activity Date Activity User E-Sign Co-Sign Detail Recorded Client Recorded Date Recorded By Document 09/25/18 08:28 DV [id number] 09/25/18 08:31 DV Document 10/02/18 08:38 DV [id number] 10/02/18 08:41 DV Document 10/09/18 08:30 DV [id number] 10/09/18 08:37 DV Document 10/16/18 08:28 DV [id number] 10/16/18 08:35 DV 09/25/18 10/02/18 10/09/18 08:28 08:38 08:30 Wound Center Nurse 2 #1 L Vaz -Time 08:30 08:39 08:20 -Correct Patient Yes Yes Yes -Correct Side, Site, Position Yes Yes Yes -Correct Procedure Yes Yes Yes -Procedure Performed Yes Yes Yes -Type of Procedure Debridement Debridement Debridement -Clinical Debridement Subcutaneous Subcutaneous Subcutaneous -Post Debridement Size (cm) - Length 1.5 1.5 1.5 -Post Debridement Size (cm) - Width 1.0 1.0 1.0 -Post Debridement Size (cm) - Depth 0.2 0.1 0.1 -Total Square Cm 1.50 1.50 1.50 -Wound/Ulcer Outcome Not Healed Not Healed Not Healed -Ulcer Cleansing Rinsed/ Rinsed/ Rinsed/ Irrigated with Irrigated with Irrigated with Saline Saline Saline -Foul Odor after Cleansing No No No -Bioengineered Tissue No No Yes -Type of bioengineered Tissue GRAFIX-Pime -Expiration Date 05/10/19 -Product Lot Number [id number] -Percent Used 100 -Topical Lidocaine (%) -Bleeding Controlled with Pressure Pressure Pressure -Offloading No No No -Treatment Response Procedure Procedure Procedure Tolerated Well Tolerated Well Tolerated Well Pain Scale: 0-10 Numeric Is Patient Pain Free? Yes Yes Yes 10/16/18 08:28 Wound Center Nurse 2 #1 L Avz -Time 08:28 -Correct Patient Yes -Correct Side, Site, Position Yes -Correct Procedure Yes -Procedure Performed Yes -Type of Procedure Debridement -Clinical Debridement Subcutaneous -Post Debridement Size (cm) - Length 0.6 -Post Debridement Size (cm) - Width 0.8 -Post Debridement Size (cm) - Depth 0.1 -Total Square Cm 0.48 -Wound/Ulcer Outcome Not Healed -Ulcer Cleansing Rinsed/ Irrigated with Saline -Foul Odor after Cleansing No -Bioengineered Tissue No -Type of bioengineered Tissue GRAFIX-Pime -Expiration Date 08/01/19 -Product Lot Number [id number] -Percent Used 100 -Topical Lidocaine (%) 5 -Bleeding Controlled with Pressure -Offloading No -Treatment Response Procedure Tolerated Well Pain Scale: 0-10 Numeric Is Patient Pain Free? Yes Laterality: Left - Lateral calf Type of Debridement: Excisional debridement Anesthesia Used: 5% Lidocaine Gel Depth: Down to and including healthy tissue, in the subcutaneous layer Percentage of wound debrided: 100 Instrument Used: 5mm curette Tissue Removed: Bioburden Severity: Fat Layer Exposed Amount of bleeding with debridement: Mild Bleeding Controlled with: Compression and gauze Patient tolerated procedure well Following a routine excisional debridement, which was well-tolerated by the patient, a [address] Prime allograft was applied topically. Wound veil and gauze were then applied, and Steri-Strips were placed to secure the entire dressing. Patient tolerated the procedure well. Graduated compression stockings of 20 to 30 mmHg have been obtained, and were applied over the left lower extremity following allograft application. The entire procedure was well- tolerated. Assessment/Plan Active Problems Traumatic open wound of lower leg (Chronic) Leg swelling (Chronic) Edema of leg (Chronic) Assessment: This is a 57-year-old female who presented with a traumatic wound on the anterolateral aspect of the left calf. The injury occurred approximately 2 months prior to presentation, and has failed to heal appropriately. The patient presented with ralph, nonviable tissue within the wound itself. She is known to be a diabetic. Patient has undergone a battery of diagnostic tests, with results as follows: Glucose 150, sodium 140, potassium 4.8, chloride 103, BUN 15, creatinine 0.80, calcium 9.5, total protein 6.7, albumin 3.9, alkaline phosphatase 61, AST 20, ALT 35, hemoglobin A1c 8.3, white blood count 6.2, hemoglobin 14.2, hematocrit 41.1, platelets 253,000. A noninvasive lower extremity arterial study was normal, revealing triphasic waveforms at ankle level bilaterally, normal resting ankle?brachial indices bilaterally, and normal digital-brachial indices bilaterally. A venous duplex examination reveals incompetence of the left great saphenous vein below the knee. The left small saphenous vein appears competent. Plan: Preauthorization has been granted, and a Grafix PL Prime allograft was placed today. Today's application represents the second such application of the allograft. The site will be left undisturbed. The patient is to use her newly acquired graduated compression stockings of 20 to 30 mmHg compression on a daily basis. The patient is to continue elevating her legs as much as possible. Patient is to aquire these stockings soon. The patient will return in 1 week for reassessment. A noninvasive lower extremity arterial study was normal. She has been encouraged to elevate her lower extremities as much as possible, and to avoid prolonged idle sitting. The patient has been encouraged to assure adequate nutrition. Optimizing glycemic control has also been advised. The patient will return in 1 week for reassessment. Influenza vaccine was not administered today. The patient is not a smoker. Patient weighs 265 pounds. She stands 5 feet 4 inches tall. Her BMI is 45.5, which places her in a class III category. Weight loss has been recommended, and collaboration with the patient's primary care physician has been recommended.
== END 2018-10-21 23:59 ==
LOC: WC 08:00
PROVIDERS: Family Provider Nurse Practitioner Primary Care; PCP Nurse Practitioner Primary Care; Referring Provider Surgery; Visit Provider Surgery
DX: S81.832A Puncture wound without foreign body, left lower leg, initial encounter (principal); W22.03XA Walked into furniture, initial encounter; R60.0 Localized edema; M79.89 Other specified soft tissue disorders; E11.9 Type 2 diabetes mellitus without complications; J44.9 Chronic obstructive pulmonary disease, unspecified; I25.10 Atherosclerotic heart disease of native coronary artery without angina pectoris; E66.01 Morbid (severe) obesity due to excess calories; Z68.42 Body mass index [BMI] 45.0-49.9, adult; Z71.3 Dietary counseling and surveillance; Z79.899 Other long term (current) drug therapy; Z79.82 Long term (current) use of aspirin; Z79.4 Long term (current) use of insulin; Z87.891 Personal history of nicotine dependence
CPT/HCPCS: 11042; 15271; 87070; 87075; 87077; 87186; 87205; Q4133

== ENCOUNTER → 2018-10-18 17:30 | Outpatient (CLI) | payer OTHER, SELFPAY ==
--- NOTE | 2018-10-18 17:46 | CT_ITS ---
STUDY: LOW DOSE CT LUNG CANCER SCREENING REASON FOR EXAM: Female, [address] chest October 18, 2017 RADIATION DOSAGE (If Supplied By Facility): CTDIvol = ( 4.02 ) mGy, DLP = ( 147.98 ) mGycm TECHNIQUE: No contrast was administered. Low dose technique was utilized (average mAS-38 and kVp 120). 1.25 mm axial source images with a slice interval of 1.25-mm were reconstructed in lung windows. 2.5 mm axial source images with a slice interval of 2.5-mm were reconstructed in lung windows. 5.0 mm axial source images with a slice interval of 5.0-mm were reconstructed in soft tissue windows. Nodule measured using lung windows on PACS and/or independent workstation with automated measurement of minimum and maximum diameter. Nodule measurement reported as average diameter rounded to the nearest whole number. Growth is defined as an increase ins size of greater than 1.5 mm. COMPARISON: None. NODULES: Right lower lobe granuloma is present. Total lung nodules (excluding granulomas): 0 Emphysema: Mild Endobronchial lesion: None Aorta: Normal Coronary arteries: Coronary artery calcifications are present. Heart: Normal Pulmonary artery: Normal Mediastinal nodes: Normal Other chest and abdominal findings: None CT/Low Dose CT Lung Screening IMPRESSION: Mild emphysema. No significant pulmonary nodules or masses. Lung RADS 1. Continued annual screening is recommended. IMPORTANT NOTES FOR USE: ACR Lung-RADS Version 1.0 Assessment Categories Release Date: August 19, 2013 Category: Coded 0-4 bases on nodule(s) with highest degree of suspicion. Negative screen is defined as categories 1 and 2; a positive screen is defined as categories 3 and 4. Category 3 and 4A nodules that are unchanged on interval CT should be coded as category 2, and individuals returned to screening in 12 months. Category 4X: Category 3 or 4 nodules with additional imaging findings that increase the suspicion of lung cancer, such as spiculation, GGN that doubles in size in 1 year, enlarged lymph notes, etc. Category Modifiers: S (significant finding unrelated to lung cancer) and C (prior history of treated lung cancer) may be added to the 0-4 Lung-RADS Electronically Signed: Tian Pinto at 20:47 EDT Tel , Service support ,
== END ==
PROVIDERS: Family Provider Nurse Practitioner Primary Care; PCP Nurse Practitioner Primary Care; Referring Provider Internal Medicine Pulmonary Disease; Visit Provider Internal Medicine Pulmonary Disease
DX: Z12.2 Encounter for screening for malignant neoplasm of respiratory organs (principal); Z87.891 Personal history of nicotine dependence
CPT/HCPCS: G0297

== ENCOUNTER 2018-11-20 08:00 | Outpatient (RCR) | payer OTHER, SELFPAY ==
[2018-10-22 00:27] VITALS: BP 154/84; PULSE 108; RESP 18; TEMP 36.5; O2SAT 94
[2018-10-23 08:11] VITALS: BP 165/82; PULSE 109; RESP 16; TEMP 35.4; BMI 46.1
--- NOTE | 2018-10-23 08:30 | PCM.WC.HP ---
(1) Traumatic open wound of lower leg Status: Chronic Current Visit: Yes Qualifiers: Encounter type: subsequent encounter Laterality: left Qualified Code(s): S81.802D - Unspecified open wound, left lower leg, subsequent encounter Code(s): S81.809A - Unspecified open wound, unspecified lower leg, initial encounter (2) Leg swelling Status: Chronic Current Visit: Yes Code(s): M79.89 - Other specified soft tissue disorders (3) Edema of leg Status: Chronic Current Visit: Yes Code(s): R60.0 - Localized edema (4) Diabetes mellitus Status: Chronic Current Visit: No Code(s): E11.9 - Type 2 diabetes mellitus without complications (5) Morbid obesity with BMI of 45.0-49.9, adult Status: Chronic Current Visit: No Code(s): E66.01 - Morbid (severe) obesity due to excess calories; Z68.42 - Body mass index (BMI) 45.0-49.9, adult (6) COPD (chronic obstructive pulmonary disease) Status: Chronic Current Visit: No Code(s): J44.9 - Chronic obstructive pulmonary disease, unspecified (7) Coronary artery arteriosclerosis Status: Chronic Current Visit: No Code(s): I25.10 - Atherosclerotic heart disease of [place] coronary artery without angina pectoris History of Present Illness Date of Service: 10/23/18 Chief Complaint: Traumatic open wound of the left lower extremity History of Wound: This is a 57-year-old diabetic female who was in her normal state of health until approximately 2 months prior to presentation. At that time, she sustained trauma to the anterolateral aspect of the left calf, striking her leg against the bed frame. A wound resulted, which has failed to heal in normal fashion. She subsequently struck her leg against the bed frame a second time, again injuring the left lower extremity in the same location. She claims to have chronic swelling in the left lower extremity, that precedes her current injury. She sleeps in a recumbent position at night. 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 Past Medical History Past Medical History: Chronic Problems Traumatic open wound of lower leg (Chronic) Leg swelling (Chronic) Edema of leg (Chronic) Diabetes mellitus (Chronic) Morbid obesity with BMI of 45.0-49.9, adult (Chronic) COPD (chronic obstructive pulmonary disease) (Chronic) Coronary artery arteriosclerosis (Chronic) Surgical History: - - The patient has a history of coronary artery stent placement. She has undergone open reduction and internal fixation of a left tibia fracture. She underwent right meniscus repair in the past. She is a Ab0. Allergies/Adverse Reactions: Allergies No Known Allergies Allergy (Verified 09/03/13 11:12) Home Medications: Ambulatory Orders Medication Instructions Recorded Aspirin E.C. [Ecotrin] 81 mg PO DAILY@0800 09/03/13 Hydrocodone/Acetaminophen [Vicodin 1 - 2 tablet PO Q6H PRN PRN 09/03/13 5-300 mg Tablet] Lisinopril 10 mg PO DAILY 09/03/13 Metformin [Metformin HCl] 1,000 mg PO BID 09/03/13 Metoprolol Tartrate 50 mg PO DAILY 09/03/13 Dulaglutide [Trulicity] 0.75 mg SQ 01/02/18 Fluticasone/Vilanterol [Breo 1 each IH 01/02/18 Ellipta 200-25 Mcg INH] Insulin Glargine,Hum.rec.anlog 56 unit BID 01/02/18 [Lantus] Sitagliptin Phosphate [Januvia] 25 mg PO DAILY 01/02/18 Tiotropium [place] [Spiriva] 18 mcg IH 01/02/18 - Family History Paternal - - The patient's father at the age of 78 with history of chronic obstructive pulmonary disease. The patient's mother at the age of 84 with history of chronic obstructive pulmonary disease. Smoking Status: Former smoker Tobacco Use: Non-smoker Review of Systems Constitutional: Denies: Chills, Fever, Weight Change Eyes: Denies: Pain, Vision Change HEENT: Denies: Difficulty Hearing, Difficulty Swallowing, Sinus Congestion Cardiovascular: Denies: Chest Pain, Palpitations Respiratory: Denies: Cough, Shortness of Breath Gastrointestinal: Denies: Diarrhea, Nausea, Vomiting Genitourinary: Denies: Dysuria, Hematuria Endocrine: Denies: Heat/ Cold Intolerance, Polydipsia, Polyuria Hematologic/ Lymphatic: Denies: Easy Bruising, Easy Bleeding - Physical Exam Vital Signs Temp Pulse Resp BP Pulse Ox 95.7 F L 109 H 16 165/82 H 94 10/23/18 08:11 10/23/18 08:11 10/23/18 08:11 10/23/18 08:11 10/22/18 00:27 General: Alert, Oriented x3, Cooperative, No apparent distress, Well developed, Well nourished HEENT: Atraumatic, PERRLA, EOMI, Normocephalic Oral: Moist Mucosa Neck: No JVD Lungs: Normal air movement Abdomen: Non-Distended Extremities: No clubbing, No cyanosis, No Calf Tenderness, - - The swelling and edema in the patient's left lower extremity is minimal. It appears to be well controlled with current measures. The ulceration on the left lateral calf is diminishing in size. It is now very small, measuring only about 0.1 cm x 0.1 cm. Dimensions are documented elsewhere. There is no significant bioburden. There is no sign of infection or cellulitis. Skin: No rashes Wound Measurements and Assessment - Nurse 1 - General Ulcer Measurement Start: 10/23/18 08:11 Freq: Status: Active Protocol: Activity Type Activity Date Activity User E-Sign Co-Sign Detail Recorded Client Recorded Date Recorded By Document 10/23/18 08:11 JOSE [id number] 10/23/18 08:13 JOSE 10/23/18 08:11 Wound Center Nurse 1 [Ulcer Assessment] #1 L Vaz -Combined with other wound No -Current Size (cm) - Length 0.1 -Current Size (cm) - Width 0.1 -Current Size (cm) - Depth 0.1 -Total Square Cm 0.01 -Photo Taken No -Epithelialization Large 67-100% -Tunneling No -Undermining/Tunneling No -Circular Undermining No -Granulation Amt Large (67-100%) -Granulation Quality Red -Slough/Fibrin Yes -Necrosis Amt Small (1-33%) -Necrotic Tissue Type Adherent Slough -Structure Exposed N/A -Texture (Ketty-wound Skin Appearance) Assessed, Localized Edema -Moisture (Ketty-wound Skin Appearance Assessed,Dry/ ) Scaly -Color (Ketty-wound Skin Appearance) Assessed -Temperature (Ketty-wound Skin No Abnormality Appearance) (Pt Warm) -Tenderness on Palpation (Ketty-wound No Skin Appearance) -Ulcer Cleansing Rinsed/ Irrigated with Saline -Foul Odor after Cleansing No [Edema Assessment] -Lower Limb Edema Present Yes -Left Calf (cm) 43.3 -Left Ankle (cm) 24.3 WC - Nurse 2 - General Ulcer CM Notes Start: 10/23/18 08:11 Freq: Status: Active Protocol: Activity Type Activity Date Activity User E-Sign Co-Sign Detail Recorded Client Recorded Date Recorded By Document 10/23/18 08:25 DV [id number] 10/23/18 08:26 DV 10/23/18 08:25 Wound Center Nurse 2 [Procedure/Treatment] #1 L Vaz -Time 08:25 -Correct Patient Yes -Correct Side, Site, Position Yes -Correct Procedure No -Procedure Performed No -Wound/Ulcer Outcome Not Healed -Ulcer Cleansing Rinsed/ Irrigated with Saline -Foul Odor after Cleansing No -Bioengineered Tissue No [See Physician Procedure note for Specifics] Pain Scale: 0-10 Numeric [Pain] -Is Patient Pain Free? Yes Musculoskeletal: No Muscle Wasting Neurological: Cranial nerves II-XII grossly intact, Neuro grossly intact Psych/Mental Status: Normal Affect, Appropriate, Alert and oriented to time, place, person, mood and affect Debridement Note Post-Debridement Measurements/Treatment - Nurse 2 - General Ulcer CM Notes Start: 10/23/18 08:11 Freq: Status: Active Protocol: Activity Type Activity Date Activity User E-Sign Co-Sign Detail Recorded Client Recorded Date Recorded By Document 10/23/18 08:25 DV [id number] 10/23/18 08:26 DV 10/23/18 08:25 Wound Center Nurse 2 #1 L Vaz -Time 08:25 -Correct Patient Yes -Correct Side, Site, Position Yes -Correct Procedure No -Procedure Performed No -Wound/Ulcer Outcome Not Healed -Ulcer Cleansing Rinsed/ Irrigated with Saline -Foul Odor after Cleansing No -Bioengineered Tissue No Pain Scale: 0-10 Numeric Is Patient Pain Free? Yes No debridement was completed today Assessment/Plan Active Problems Traumatic open wound of lower leg (Chronic) Leg swelling (Chronic) Edema of leg (Chronic) Assessment: This is a 57-year-old female who presented with a traumatic wound on the anterolateral aspect of the left calf. The injury occurred approximately 2 months prior to presentation, and has failed to heal appropriately. The patient presented with ralph, nonviable tissue within the wound itself. She is known to be a diabetic. Patient has undergone a battery of diagnostic tests, with results as follows: Glucose 150, sodium 140, potassium 4.8, chloride 103, BUN 15, creatinine 0.80, calcium 9.5, total protein 6.7, albumin 3.9, alkaline phosphatase 61, AST 20, ALT 35, hemoglobin A1c 8.3, white blood count 6.2, hemoglobin 14.2, hematocrit 41.1, platelets 253,000. A noninvasive lower extremity arterial study was normal, revealing triphasic waveforms at ankle level bilaterally, normal resting ankle?brachial indices bilaterally, and normal digital-brachial indices bilaterally. A venous duplex examination reveals incompetence of the left great saphenous vein below the knee. The left small saphenous vein appears competent. Plan: The patient's left lower extremity wound is now nearly completely healed. It is quite small in size. There is no sign of infection or cellulitis. She is progressing well. Due to the extremely small size of the wound, we are to forego the use of an allograft today. We are to implement the use of Promogran, which will be applied every other day. The patient is to use her newly acquired graduated compression stockings of 20 to 30 mmHg compression on a daily basis. The patient is to continue elevating her legs as much as possible. The patient will return in 1 week for reassessment. A noninvasive lower extremity arterial study was normal. She has been encouraged to elevate her lower extremities as much as possible, and to avoid prolonged idle sitting. The patient has been encouraged to assure adequate nutrition. Optimizing glycemic control has also been advised. The patient will return in 1 week for reassessment. Influenza vaccine was not administered today. The patient is not a smoker. Patient weighs 265 pounds. She stands 5 feet 4 inches tall. Her BMI is 45.5, which places her in a class III category. Weight loss has been recommended, and collaboration with the patient's primary care physician has been recommended.
[2018-10-30 08:10] VITALS: BP 149/77; PULSE 115; RESP 16; TEMP 35.6; BMI 46.1
--- NOTE | 2018-10-30 08:46 | HP.PCM_ITS ---
(1) Traumatic open wound of lower leg Status: Chronic Current Visit: Yes Qualifiers: Encounter type: subsequent encounter Laterality: left Qualified Code(s): S81.802D - Unspecified open wound, left lower leg, subsequent encounter Code(s): S81.809A - Unspecified open wound, unspecified lower leg, initial encounter (2) Leg swelling Status: Chronic Current Visit: Yes Code(s): M79.89 - Other specified soft tissue disorders (3) Edema of leg Status: Chronic Current Visit: Yes Code(s): R60.0 - Localized edema (4) Diabetes mellitus Status: Chronic Current Visit: No Code(s): E11.9 - Type 2 diabetes mellitus without complications (5) Morbid obesity with BMI of 45.0-49.9, adult Status: Chronic Current Visit: No Code(s): E66.01 - Morbid (severe) obesity due to excess calories; Z68.42 - Body mass index (BMI) 45.0-49.9, adult (6) COPD (chronic obstructive pulmonary disease) Status: Chronic Current Visit: No Code(s): J44.9 - Chronic obstructive pulmonary disease, unspecified (7) Coronary artery arteriosclerosis Status: Chronic Current Visit: No Code(s): I25.10 - Atherosclerotic heart disease of [place] coronary artery without angina pectoris History of Present Illness Date of Service: 10/30/18 Chief Complaint: Traumatic open wound of the left lower extremity History of Wound: This is a 57-year-old diabetic female who was in her normal state of health until approximately 2 months prior to presentation. At that time, she sustained trauma to the anterolateral aspect of the left calf, striking her leg against the bed frame. A wound resulted, which has failed to heal in normal fashion. She subsequently struck her leg against the bed frame a second time, again injuring the left lower extremity in the same location. She claims to have chronic swelling in the left lower extremity, that precedes her current injury. She sleeps in a recumbent position at night. 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 Past Medical History Past Medical History: Chronic Problems Traumatic open wound of lower leg (Chronic) Leg swelling (Chronic) Edema of leg (Chronic) Diabetes mellitus (Chronic) Morbid obesity with BMI of 45.0-49.9, adult (Chronic) COPD (chronic obstructive pulmonary disease) (Chronic) Coronary artery arteriosclerosis (Chronic) Surgical History: - - The patient has a history of coronary artery stent placement. She has undergone open reduction and internal fixation of a left tibia fracture. She underwent right meniscus repair in the past. She is a Ab0. Allergies/Adverse Reactions: Allergies No Known Allergies Allergy (Verified 09/03/13 11:12) Home Medications: Ambulatory Orders Medication Instructions Recorded Aspirin E.C. [Ecotrin] 81 mg PO DAILY@0800 09/03/13 Hydrocodone/Acetaminophen [Vicodin 1 - 2 tablet PO Q6H PRN PRN 09/03/13 5-300 mg Tablet] Lisinopril 10 mg PO DAILY 09/03/13 Metformin [Metformin HCl] 1,000 mg PO BID 09/03/13 Metoprolol Tartrate 50 mg PO DAILY 09/03/13 Dulaglutide [Trulicity] 0.75 mg SQ 01/02/18 Fluticasone/Vilanterol [Breo 1 each IH 01/02/18 Ellipta 200-25 Mcg INH] Insulin Glargine,Hum.rec.anlog 56 unit BID 01/02/18 [Lantus] Sitagliptin Phosphate [Januvia] 25 mg PO DAILY 01/02/18 Tiotropium [place] [Spiriva] 18 mcg IH 01/02/18 - Family History Paternal - - The patient's father at the age of 78 with history of chronic obstructive pulmonary disease. The patient's mother at the age of 84 with history of chronic obstructive pulmonary disease. Smoking Status: Former smoker Tobacco Use: Non-smoker Review of Systems Constitutional: Denies: Chills, Fever, Weight Change Eyes: Denies: Pain, Vision Change HEENT: Denies: Difficulty Hearing, Difficulty Swallowing, Sinus Congestion Cardiovascular: Denies: Chest Pain, Palpitations Respiratory: Denies: Cough, Shortness of Breath Gastrointestinal: Denies: Diarrhea, Nausea, Vomiting Genitourinary: Denies: Dysuria, Hematuria Endocrine: Denies: Heat/ Cold Intolerance, Polydipsia, Polyuria Hematologic/ Lymphatic: Denies: Easy Bruising, Easy Bleeding - Physical Exam Vital Signs Temp Pulse Resp BP Pulse Ox 96.0 F L 115 H 16 149/77 H 94 10/30/18 08:10 10/30/18 08:10 10/30/18 08:10 10/30/18 08:10 10/22/18 00:27 General: Alert, Oriented x3, Cooperative, No apparent distress, Well developed, Well nourished HEENT: Atraumatic, PERRLA, EOMI, Normocephalic Oral: Moist Mucosa Neck: No JVD Lungs: Normal air movement Abdomen: Non-Distended Extremities: No clubbing, No cyanosis, No edema, No Calf Tenderness, - - The ulceration on the left lateral calf is very small in size. Dimensions are documented elsewhere. The base of the ulceration is generally pink and healthy in appearance. The ulceration, and surrounding skin, appears somewhat desiccated. There is no sign of infection or cellulitis. There is a small amount of bioburden. Skin: No rashes Wound Measurements and Assessment - Nurse 1 - General Ulcer Measurement Start: 10/23/18 08:11 Freq: Status: Active Protocol: Activity Type Activity Date Activity User E-Sign Co-Sign Detail Recorded Client Recorded Date Recorded By Document 10/30/18 08:10 JOSE [id number] 10/30/18 08:13 JOSE 10/30/18 08:10 Wound Center Nurse 1 [Ulcer Assessment] #1 L Vaz -Combined with other wound No -Current Size (cm) - Length 0.1 -Current Size (cm) - Width 0.1 -Current Size (cm) - Depth 0.1 -Total Square Cm 0.01 -Photo Taken Yes -Epithelialization Large 67-100% -Tunneling No -Undermining/Tunneling No -Circular Undermining No -Exudate Amt None Present -Wound Margin Flat & Intact -Granulation Amt None Present (0 %) -Slough/Fibrin Yes -Necrosis Amt Medium (34-66%) -Necrotic Tissue Type Adherent Slough -Structure Exposed N/A -Texture (Ketty-wound Skin Appearance) Assessed, Localized Edema -Moisture (Ketty-wound Skin Appearance Assessed,Dry/ ) Scaly -Color (Ketty-wound Skin Appearance) Assessed -Temperature (Ketty-wound Skin No Abnormality Appearance) (Pt Warm) -Tenderness on Palpation (Ketty-wound No Skin Appearance) -Ulcer Cleansing Not Cleansed [Edema Assessment] -Lower Limb Edema Present Yes -Left Calf (cm) 43.7 -Left Ankle (cm) 24.0 - Nurse 2 - General Ulcer CM Notes Start: 10/23/18 08:11 Freq: Status: Active Protocol: Activity Type Activity Date Activity User E-Sign Co-Sign Detail Recorded Client Recorded Date Recorded By Document 10/30/18 08:41 DV [id number] 10/30/18 08:42 DV 10/30/18 08:41 Wound Center Nurse 2 [Procedure/Treatment] #1 L Vaz -Time 08:41 -Correct Patient Yes -Correct Side, Site, Position Yes -Correct Procedure Yes -Procedure Performed Yes -Type of Procedure Debridement -Clinical Debridement Subcutaneous -Post Debridement Size (cm) - Length 0.2 -Post Debridement Size (cm) - Width 0.2 -Post Debridement Size (cm) - Depth 0.1 -Total Square Cm 0.04 -Wound/Ulcer Outcome Not Healed -Ulcer Cleansing Rinsed/ Irrigated with Saline -Foul Odor after Cleansing No -Bioengineered Tissue No -Bleeding Controlled with NA -Treatment Response Procedure Tolerated Well [See Physician Procedure note for Specifics] Pain Scale: 0-10 Numeric [Pain] -Is Patient Pain Free? Yes Musculoskeletal: No Muscle Wasting Neurological: Cranial nerves II-XII grossly intact, Neuro grossly intact Psych/Mental Status: Normal Affect, Appropriate, Alert and oriented to time, place, person, mood and affect Debridement Note Post-Debridement Measurements/Treatment WC - Nurse 2 - General Ulcer CM Notes Start: 10/23/18 08:11 Freq: Status: Active Protocol: Activity Type Activity Date Activity User E-Sign Co-Sign Detail Recorded Client Recorded Date Recorded By Document 10/23/18 08:25 DV [id number] 10/23/18 08:26 DV Document 10/30/18 08:41 DV [id number] 10/30/18 08:42 DV 10/23/18 10/30/18 08:25 08:41 Wound Center Nurse 2 #1 L Vaz -Time 08:25 08:41 -Correct Patient Yes Yes -Correct Side, Site, Position Yes Yes -Correct Procedure No Yes -Procedure Performed No Yes -Type of Procedure Debridement -Clinical Debridement Subcutaneous -Post Debridement Size (cm) - Length 0.2 -Post Debridement Size (cm) - Width 0.2 -Post Debridement Size (cm) - Depth 0.1 -Total Square Cm 0.04 -Wound/Ulcer Outcome Not Healed Not Healed -Ulcer Cleansing Rinsed/ Rinsed/ Irrigated with Irrigated with Saline Saline -Foul Odor after Cleansing No No -Bioengineered Tissue No No -Bleeding Controlled with NA -Treatment Response Procedure Tolerated Well Pain Scale: 0-10 Numeric Is Patient Pain Free? Yes Yes Laterality: Left - Lateral calf Type of Debridement: Excisional debridement Anesthesia Used: 5% Lidocaine Gel Depth: Down to and including healthy tissue, in the subcutaneous layer Percentage of wound debrided: 100 Instrument Used: 5mm curette Tissue Removed: Small amount of bioburden and exfoliated dermis Severity: Fat Layer Exposed Amount of bleeding with debridement: None Patient tolerated procedure well Assessment/Plan Active Problems Traumatic open wound of lower leg (Chronic) Leg swelling (Chronic) Edema of leg (Chronic) Assessment: This is a 57-year-old female who presented with a traumatic wound on the anterolateral aspect of the left calf. The injury occurred approximately 2 months prior to presentation, and has failed to heal appropriately. The patient presented with ralph, nonviable tissue within the wound itself. She is known to be a diabetic. Patient has undergone a battery of diagnostic tests, with results as follows: Glucose 150, sodium 140, potassium 4.8, chloride 103, BUN 15, creatinine 0.80, calcium 9.5, total protein 6.7, albumin 3.9, alkaline phosphatase 61, AST 20, ALT 35, hemoglobin A1c 8.3, white blood count 6.2, hemoglobin 14.2, hematocrit 41.1, platelets 253,000. A noninvasive lower extremity arterial study was normal, revealing triphasic waveforms at ankle level bilaterally, normal resting ankle?brachial indices bilaterally, and normal digital-brachial indices bilaterally. A venous duplex examination reveals incompetence of the left great saphenous vein below the knee. The left small saphenous vein appears competent. Plan: The patient's left lower extremity wound is nearly completely healed. It is quite small in size. There is no sign of infection or cellulitis. She is progressing well. Due to the extremely small size of the wound, we are to forego the use of an allograft today. We are to implement the use of collagen hydrogel ointment, which will be applied every day. The patient has been instructed to use a very small amount on the ulceration and the surrounding skin, to provide the area with needed moist healing environment, but not so much as to create maceration. The patient is to use her newly acquired graduated compression stockings of 20 to 30 mmHg compression on a daily basis. The patient is to continue elevating her legs as much as possible. The patient will return in 1 week for reassessment. If her ulceration is not healed by the following week, we are to consider reapplying a Grafix PL prime allograft, which has been the most successful modality used to date in achieving healing for this patient. A noninvasive lower extremity arterial study was normal. She has been encouraged to elevate her lower extremities as much as possible, and to avoid prolonged idle sitting. The patient has been encouraged to assure adequate nutrition. Optimizing glycemic control has also been advised. The patient will return in 1 week for reassessment. Influenza vaccine was not administered today. The patient is not a smoker. Patient weighs 265 pounds. She stands 5 feet 4 inches tall. Her BMI is 45.5, which places her in a class III category. Weight loss has been recommended, and collaboration with the patient's primary care physician has been recommended.
[2018-11-06 08:10] VITALS: BP 148/85; PULSE 104; RESP 18; TEMP 36.4; BMI 46.1
--- NOTE | 2018-11-06 08:43 | PCM.WC.HP ---
(1) Traumatic open wound of lower leg Status: Chronic Current Visit: Yes Qualifiers: Encounter type: subsequent encounter Laterality: left Qualified Code(s): S81.802D - Unspecified open wound, left lower leg, subsequent encounter Code(s): S81.809A - Unspecified open wound, unspecified lower leg, initial encounter (2) Leg swelling Status: Chronic Current Visit: Yes Code(s): M79.89 - Other specified soft tissue disorders (3) Edema of leg Status: Chronic Current Visit: Yes Code(s): R60.0 - Localized edema (4) Diabetes mellitus Status: Chronic Current Visit: No Code(s): E11.9 - Type 2 diabetes mellitus without complications (5) Morbid obesity with BMI of 45.0-49.9, adult Status: Chronic Current Visit: No Code(s): E66.01 - Morbid (severe) obesity due to excess calories; Z68.42 - Body mass index (BMI) 45.0-49.9, adult (6) COPD (chronic obstructive pulmonary disease) Status: Chronic Current Visit: No Code(s): J44.9 - Chronic obstructive pulmonary disease, unspecified (7) Coronary artery arteriosclerosis Status: Chronic Current Visit: No Code(s): I25.10 - Atherosclerotic heart disease of [place] coronary artery without angina pectoris History of Present Illness Date of Service: 11/06/18 Chief Complaint: Traumatic open wound of the left lower extremity History of Wound: This is a 57-year-old diabetic female who was in her normal state of health until approximately 2 months prior to presentation. At that time, she sustained trauma to the anterolateral aspect of the left calf, striking her leg against the bed frame. A wound resulted, which has failed to heal in normal fashion. She subsequently struck her leg against the bed frame a second time, again injuring the left lower extremity in the same location. She claims to have chronic swelling in the left lower extremity, that precedes her current injury. She sleeps in a recumbent position at night. 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 Past Medical History Past Medical History: Chronic Problems Traumatic open wound of lower leg (Chronic) Leg swelling (Chronic) Edema of leg (Chronic) Diabetes mellitus (Chronic) Morbid obesity with BMI of 45.0-49.9, adult (Chronic) COPD (chronic obstructive pulmonary disease) (Chronic) Coronary artery arteriosclerosis (Chronic) Surgical History: - - The patient has a history of coronary artery stent placement. She has undergone open reduction and internal fixation of a left tibia fracture. She underwent right meniscus repair in the past. She is a Ab0. Allergies/Adverse Reactions: Allergies No Known Allergies Allergy (Verified 09/03/13 11:12) Home Medications: Ambulatory Orders Medication Instructions Recorded Aspirin E.C. [Ecotrin] 81 mg PO DAILY@0800 09/03/13 Hydrocodone/Acetaminophen [Vicodin 1 - 2 tablet PO Q6H PRN PRN 09/03/13 5-300 mg Tablet] Lisinopril 10 mg PO DAILY 09/03/13 Metformin [Metformin HCl] 1,000 mg PO BID 09/03/13 Metoprolol Tartrate 50 mg PO DAILY 09/03/13 Dulaglutide [Trulicity] 0.75 mg SQ 01/02/18 Fluticasone/Vilanterol [Breo 1 each IH 01/02/18 Ellipta 200-25 Mcg INH] Insulin Glargine,Hum.rec.anlog 56 unit BID 01/02/18 [Lantus] Sitagliptin Phosphate [Januvia] 25 mg PO DAILY 01/02/18 Tiotropium [place] [Spiriva] 18 mcg IH 01/02/18 - Family History Paternal - - The patient's father at the age of 78 with history of chronic obstructive pulmonary disease. The patient's mother at the age of 84 with history of chronic obstructive pulmonary disease. Smoking Status: Former smoker Tobacco Use: Non-smoker Review of Systems Constitutional: Denies: Chills, Fever, Weight Change Eyes: Denies: Pain, Vision Change HEENT: Denies: Difficulty Hearing, Difficulty Swallowing, Sinus Congestion Cardiovascular: Denies: Chest Pain, Palpitations Respiratory: Denies: Cough, Shortness of Breath Gastrointestinal: Denies: Diarrhea, Nausea, Vomiting Genitourinary: Denies: Dysuria, Hematuria Endocrine: Denies: Heat/ Cold Intolerance, Polydipsia, Polyuria Hematologic/ Lymphatic: Denies: Easy Bruising, Easy Bleeding - Physical Exam Vital Signs Temp Pulse Resp BP Pulse Ox 97.5 F L 104 H 18 148/85 H 94 11/06/18 08:10 11/06/18 08:10 11/06/18 08:10 11/06/18 08:10 10/22/18 00:27 General: Alert, Oriented x3, Cooperative, No apparent distress, Well developed, Well nourished HEENT: Atraumatic, PERRLA, EOMI, Normocephalic Oral: Moist Mucosa Neck: No JVD Lungs: Normal air movement Abdomen: Non-Distended, Obese Extremities: No clubbing, No cyanosis, No edema, No Calf Tenderness, - - The wound on the patient's left lateral calf is slightly larger in size. Dimensions are documented elsewhere. The base of the wound is pink and healthy in appearance, with active granulation tissue. There is no sign of infection or cellulitis. There is a small amount of bioburden. Skin: No rashes Wound Measurements and Assessment WC - Nurse 1 - General Ulcer Measurement Start: 10/23/18 08:11 Freq: Status: Active Protocol: Activity Type Activity Date Activity User E-Sign Co-Sign Detail Recorded Client Recorded Date Recorded By Document 11/06/18 08:10 DL [id number] 11/06/18 08:14 DL 11/06/18 08:10 Wound Center Nurse 1 [Ulcer Assessment] #1 L Vaz -Current Size (cm) - Length 0.3 -Current Size (cm) - Width 0.4 -Current Size (cm) - Depth 0.1 -Total Square Cm 0.12 -Photo Taken No -Exudate Amt None Present -Granulation Amt Large (67-100%) -Granulation Quality Red -Necrosis Amt None Present (0 %) -Structure Exposed N/A -Texture (Ketty-wound Skin Appearance) Scarring -Moisture (Ketty-wound Skin Appearance No Abnormality ) -Color (Ketty-wound Skin Appearance) No Abnormality [Edema Assessment] -Left Calf (cm) 44 -Left Ankle (cm) 25.4 WC - Nurse 2 - General Ulcer CM Notes Start: 10/23/18 08:11 Freq: Status: Active Protocol: Activity Type Activity Date Activity User E-Sign Co-Sign Detail Recorded Client Recorded Date Recorded By Document 11/06/18 08:31 DV [id number] 11/06/18 08:35 DV 11/06/18 08:31 Wound Center Nurse 2 [Procedure/Treatment] #1 L Vaz -Time 08:31 -Correct Patient Yes -Correct Side, Site, Position Yes -Correct Procedure Yes -Procedure Performed Yes -Type of Procedure Debridement -Clinical Debridement Subcutaneous -Post Debridement Size (cm) - Length 0.9 -Post Debridement Size (cm) - Width 1.0 -Post Debridement Size (cm) - Depth 0.1 -Total Square Cm 0.90 -Wound/Ulcer Outcome Not Healed -Ulcer Cleansing Rinsed/ Irrigated with Saline -Foul Odor after Cleansing No -Bioengineered Tissue Yes -Type of bioengineered Tissue [id number]-[id number] -Expiration Date 04/25/19 -Product Lot Number [id number] -Percent Used 100 -Bleeding Controlled with Pressure -Offloading No -Treatment Response Procedure Tolerated Well [See Physician Procedure note for Specifics] Pain Scale: 0-10 Numeric [Pain] -Is Patient Pain Free? Yes Musculoskeletal: No Muscle Wasting Neurological: Cranial nerves II-XII grossly intact, Neuro grossly intact Psych/Mental Status: Normal Affect, Appropriate, Alert and oriented to time, place, person, mood and affect Debridement Note Post-Debridement Measurements/Treatment WC - Nurse 2 - General Ulcer CM Notes Start: 10/23/18 08:11 Freq: Status: Active Protocol: Activity Type Activity Date Activity User E-Sign Co-Sign Detail Recorded Client Recorded Date Recorded By Document 10/23/18 08:25 DV [id number] 10/23/18 08:26 DV Document 10/30/18 08:41 DV [id number] 10/30/18 08:42 DV Document 11/06/18 08:31 DV [id number] 11/06/18 08:35 DV 10/23/18 10/30/18 11/06/18 08:25 08:41 08:31 Wound Center Nurse 2 #1 L Vaz -Time 08:25 08:41 08:31 -Correct Patient Yes Yes Yes -Correct Side, Site, Position Yes Yes Yes -Correct Procedure No Yes Yes -Procedure Performed No Yes Yes -Type of Procedure Debridement Debridement -Clinical Debridement Subcutaneous Subcutaneous -Post Debridement Size (cm) - Length 0.2 0.9 -Post Debridement Size (cm) - Width 0.2 1.0 -Post Debridement Size (cm) - Depth 0.1 0.1 -Total Square Cm 0.04 0.90 -Wound/Ulcer Outcome Not Healed Not Healed Not Healed -Ulcer Cleansing Rinsed/ Rinsed/ Rinsed/ Irrigated with Irrigated with Irrigated with Saline Saline Saline -Foul Odor after Cleansing No No No -Bioengineered Tissue No No Yes -Type of bioengineered Tissue [place] -Expiration Date 04/25/19 -Product Lot Number [id number] -Percent Used 100 -Bleeding Controlled with NA Pressure -Offloading No -Treatment Response Procedure Procedure Tolerated Well Tolerated Well Pain Scale: 0-10 Numeric Is Patient Pain Free? Yes Yes Yes Laterality: Left - Lateral calf Type of Debridement: Excisional debridement Anesthesia Used: 5% Lidocaine Gel Depth: Down to and including healthy tissue, in the subcutaneous layer Percentage of wound debrided: 100 Instrument Used: 5mm curette Tissue Removed: Bioburden and nonviable tissue Severity: Fat Layer Exposed Amount of bleeding with debridement: Mild Bleeding Controlled with: Compression and gauze Patient tolerated procedure well Following a standard excisional debridement, which was well-tolerated by the patient, a Grafix PL Prime allograft was applied. The graft selected was a 1.5 cm x 2.0 cm. Upon removal from its sterile packaging, it was placed topically. Wound veil and gauze were then placed, and secured using Steri-Strips. The procedure was well-tolerated. Operative Diagnosis: Chronic, nonhealing wound of the left calf Assessment/Plan Active Problems Traumatic open wound of lower leg (Chronic) Leg swelling (Chronic) Edema of leg (Chronic) Assessment: This is a 57-year-old female who presented with a traumatic wound on the anterolateral aspect of the left calf. The injury occurred approximately 2 months prior to presentation, and has failed to heal appropriately. The patient presented with ralph, nonviable tissue within the wound itself. She is known to be a diabetic. Patient has undergone a battery of diagnostic tests, with results as follows: Glucose 150, sodium 140, potassium 4.8, chloride 103, BUN 15, creatinine 0.80, calcium 9.5, total protein 6.7, albumin 3.9, alkaline phosphatase 61, AST 20, ALT 35, hemoglobin A1c 8.3, white blood count 6.2, hemoglobin 14.2, hematocrit 41.1, platelets 253,000. A noninvasive lower extremity arterial study was normal, revealing triphasic waveforms at ankle level bilaterally, normal resting ankle?brachial indices bilaterally, and normal digital-brachial indices bilaterally. A venous duplex examination reveals incompetence of the left great saphenous vein below the knee. The left small saphenous vein appears competent. Plan: The third in a series of Grafix allografts was placed today. There is no sign of infection or cellulitis. She is progressing well, though her wound has increased slightly in size within the last week. The allograft is to remain in place, undisturbed, for the next week, until her return visit. The patient is to continue wearing her graduated compression stockings of 20 to 30 mmHg compression on a daily basis. The patient is to continue elevating her legs as much as possible. The patient will return in 1 week for reassessment. A noninvasive lower extremity arterial study was normal. She has been encouraged to elevate her lower extremities as much as possible, and to avoid prolonged idle sitting. The patient has been encouraged to assure adequate nutrition. Optimizing glycemic control has also been advised. The patient will return in 1 week for reassessment. Influenza vaccine was not administered today. The patient is not a smoker. Patient weighs 265 pounds. She stands 5 feet 4 inches tall. Her BMI is 45.5, which places her in a class III category. Weight loss has been recommended, and collaboration with the patient's primary care physician has been recommended.
[2018-11-13 08:16] VITALS: BP 139/88; PULSE 108; RESP 18; TEMP 35.9; BMI 46.1
--- NOTE | 2018-11-13 08:44 | HP.PCM_ITS ---
(1) Traumatic open wound of lower leg Status: Chronic Current Visit: Yes Qualifiers: Encounter type: subsequent encounter Laterality: left Qualified Code(s): S81.802D - Unspecified open wound, left lower leg, subsequent encounter Code(s): S81.809A - Unspecified open wound, unspecified lower leg, initial encounter (2) Leg swelling Status: Chronic Current Visit: Yes Code(s): M79.89 - Other specified soft tissue disorders (3) Edema of leg Status: Chronic Current Visit: Yes Code(s): R60.0 - Localized edema (4) Diabetes mellitus Status: Chronic Current Visit: No Code(s): E11.9 - Type 2 diabetes mellitus without complications (5) Morbid obesity with BMI of 45.0-49.9, adult Status: Chronic Current Visit: No Code(s): E66.01 - Morbid (severe) obesity due to excess calories; Z68.42 - Body mass index (BMI) 45.0-49.9, adult (6) COPD (chronic obstructive pulmonary disease) Status: Chronic Current Visit: No Code(s): J44.9 - Chronic obstructive pulmonary disease, unspecified (7) Coronary artery arteriosclerosis Status: Chronic Current Visit: No Code(s): I25.10 - Atherosclerotic heart disease of [place] coronary artery without angina pectoris History of Present Illness Date of Service: 11/13/18 Chief Complaint: Traumatic open wound of the left lower extremity History of Wound: This is a 57-year-old diabetic female who was in her normal state of health until approximately 2 months prior to presentation. At that time, she sustained trauma to the anterolateral aspect of the left calf, striking her leg against the bed frame. A wound resulted, which has failed to heal in normal fashion. She subsequently struck her leg against the bed frame a second time, again injuring the left lower extremity in the same location. She claims to have chronic swelling in the left lower extremity, that precedes her current injury. She sleeps in a recumbent position at night. 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 Past Medical History Past Medical History: Chronic Problems Traumatic open wound of lower leg (Chronic) Leg swelling (Chronic) Edema of leg (Chronic) Diabetes mellitus (Chronic) Morbid obesity with BMI of 45.0-49.9, adult (Chronic) COPD (chronic obstructive pulmonary disease) (Chronic) Coronary artery arteriosclerosis (Chronic) Surgical History: - - The patient has a history of coronary artery stent placement. She has undergone open reduction and internal fixation of a left tibia fracture. She underwent right meniscus repair in the past. She is a Ab0. Allergies/Adverse Reactions: Allergies No Known Allergies Allergy (Verified 09/03/13 11:12) Home Medications: Ambulatory Orders Medication Instructions Recorded Aspirin E.C. [Ecotrin] 81 mg PO DAILY@0800 09/03/13 Hydrocodone/Acetaminophen [Vicodin 1 - 2 tablet PO Q6H PRN PRN 09/03/13 5-300 mg Tablet] Lisinopril 10 mg PO DAILY 09/03/13 Metformin [Metformin HCl] 1,000 mg PO BID 09/03/13 Metoprolol Tartrate 50 mg PO DAILY 09/03/13 Dulaglutide [Trulicity] 0.75 mg SQ 01/02/18 Fluticasone/Vilanterol [Breo 1 each IH 01/02/18 Ellipta 200-25 Mcg INH] Insulin Glargine,Hum.rec.anlog 56 unit BID 01/02/18 [Lantus] Sitagliptin Phosphate [Januvia] 25 mg PO DAILY 01/02/18 Tiotropium [place] [Spiriva] 18 mcg IH 01/02/18 - Family History Paternal - - The patient's father at the age of 78 with history of chronic obstructive pulmonary disease. The patient's mother at the age of 84 with history of chronic obstructive pulmonary disease. Smoking Status: Former smoker Tobacco Use: Non-smoker Review of Systems Constitutional: Denies: Chills, Fever, Weight Change Eyes: Denies: Pain, Vision Change HEENT: Denies: Difficulty Hearing, Difficulty Swallowing, Sinus Congestion Cardiovascular: Denies: Chest Pain, Palpitations Respiratory: Denies: Cough, Shortness of Breath Gastrointestinal: Denies: Diarrhea, Nausea, Vomiting Genitourinary: Denies: Dysuria, Hematuria Endocrine: Denies: Heat/ Cold Intolerance, Polydipsia, Polyuria Hematologic/ Lymphatic: Denies: Easy Bruising, Easy Bleeding - Physical Exam Vital Signs Temp Pulse Resp BP Pulse Ox 96.6 F L 108 H 18 139/88 H 94 11/13/18 08:16 11/13/18 08:16 11/13/18 08:16 11/13/18 08:16 10/22/18 00:27 General: Alert, Oriented x3, Cooperative, No apparent distress, Well developed, Well nourished, - - The patient is obese. HEENT: Atraumatic, PERRLA, EOMI, Normocephalic Oral: Moist Mucosa Neck: No JVD Lungs: Normal air movement Abdomen: Non-Distended, Obese Extremities: No clubbing, No cyanosis, No edema, No Calf Tenderness, - - There is no notable swelling or edema in the patient's lower extremities. The ulceration on the left lateral calf appears to be nearly healed. At this time, it is simply a very superficial ulceration, quite small in size. Dimensions are documented elsewhere. There is little or no bioburden. There is no nonviable tissue. The base of the ulceration is pink and healthy in appearance, with healthy granulation tissue. Skin: No rashes Wound Measurements and Assessment WC - Nurse 1 - General Ulcer Measurement Start: 10/23/18 08:11 Freq: Status: Active Protocol: Activity Type Activity Date Activity User E-Sign Co-Sign Detail Recorded Client Recorded Date Recorded By Document 11/13/18 08:16 DL [id number] 11/13/18 08:18 DL 11/13/18 08:16 Wound Center Nurse 1 [Ulcer Assessment] #1 L Vaz -Current Size (cm) - Length 0.1 -Current Size (cm) - Width 0.1 -Current Size (cm) - Depth 0.1 -Total Square Cm 0.01 -Photo Taken No -Exudate Amt None Present -Wound Margin Flat & Intact -Granulation Amt Large (67-100%) -Granulation Quality [place] -Necrosis Amt None Present (0 %) -Structure Exposed N/A -Texture (Ketty-wound Skin Appearance) Scarring -Moisture (Ketty-wound Skin Appearance Dry/Scaly ) -Color (Ketty-wound Skin Appearance) Rubor -Temperature (Ketty-wound Skin No Abnormality Appearance) (Pt Warm) -Tenderness on Palpation (Ketty-wound No Skin Appearance) -Ulcer Cleansing Rinsed/ Irrigated with Saline -Foul Odor after Cleansing No -Anesthetic Used 4% Lidocaine Solution Musculoskeletal: No Muscle Wasting Neurological: Cranial nerves II-XII grossly intact, Neuro grossly intact Psych/Mental Status: Normal Affect, Appropriate, Alert and oriented to time, place, person, mood and affect Debridement Note Post-Debridement Measurements/Treatment WC - Nurse 2 - General Ulcer CM Notes Start: 10/23/18 08:11 Freq: Status: Active Protocol: Activity Type Activity Date Activity User E-Sign Co-Sign Detail Recorded Client Recorded Date Recorded By Document 10/23/18 08:25 DV [id number] 10/23/18 08:26 DV Document 10/30/18 08:41 DV [id number] 10/30/18 08:42 DV Document 11/06/18 08:31 DV [id number] 11/06/18 08:35 DV 10/23/18 10/30/18 11/06/18 08:25 08:41 08:31 Wound Center Nurse 2 #1 L Vaz -Time 08:25 08:41 08:31 -Correct Patient Yes Yes Yes -Correct Side, Site, Position Yes Yes Yes -Correct Procedure No Yes Yes -Procedure Performed No Yes Yes -Type of Procedure Debridement Debridement -Clinical Debridement Subcutaneous Subcutaneous -Post Debridement Size (cm) - Length 0.2 0.9 -Post Debridement Size (cm) - Width 0.2 1.0 -Post Debridement Size (cm) - Depth 0.1 0.1 -Total Square Cm 0.04 0.90 -Wound/Ulcer Outcome Not Healed Not Healed Not Healed -Ulcer Cleansing Rinsed/ Rinsed/ Rinsed/ Irrigated with Irrigated with Irrigated with Saline Saline Saline -Foul Odor after Cleansing No No No -Bioengineered Tissue No No Yes -Type of bioengineered Tissue GRAFIX-[place] -Expiration Date 04/25/19 -Product Lot Number [id number] -Percent Used 100 -Bleeding Controlled with NA Pressure -Offloading No -Treatment Response Procedure Procedure Tolerated Well Tolerated Well Pain Scale: 0-10 Numeric Is Patient Pain Free? Yes Yes Yes Given the appearance of the patient's ulceration, located on the left lateral calf, a debridement was not performed. This was purposeful. The ulceration is quite small. There is little or no bioburden or nonviable tissue present. There is no sign of infection. The base of the ulceration is generally pink and healthy in appearance, with active granulation tissue. Therefore, the decision was made to simply place a Grafix PL Prime allograft. 16mm allograft was selected. Upon removal from its sterile packaging, it was applied topically to the ulcer surface. A very small amount of collagen hydrogel was applied. Wound veil was then placed, and anchored securely using Steri-Strips. The site was then dressed with gauze. The procedure was well-tolerated. No debridement was completed today Assessment/Plan Active Problems Traumatic open wound of lower leg (Chronic) Leg swelling (Chronic) Edema of leg (Chronic) Assessment: This is a 57-year-old female who presented with a traumatic wound on the anterolateral aspect of the left calf. The injury occurred approximately 2 months prior to presentation, and has failed to heal appropriately. The patient presented with ralph, nonviable tissue within the wound itself. She is known to be a diabetic. Patient has undergone a battery of diagnostic tests, with results as follows: Glucose 150, sodium 140, potassium 4.8, chloride 103, BUN 15, creatinine 0.80, calcium 9.5, total protein 6.7, albumin 3.9, alkaline phosphatase 61, AST 20, ALT 35, hemoglobin A1c 8.3, white blood count 6.2, hemoglobin 14.2, hematocrit 41.1, platelets 253,000. A noninvasive lower extremity arterial study was normal, revealing triphasic waveforms at ankle level bilaterally, normal resting ankle?brachial indices bilaterally, and normal digital-brachial indices bilaterally. A venous duplex examination reveals incompetence of the left great saphenous vein below the knee. The left small saphenous vein appears competent. Plan: The 4th in a series of Grafix allografts was placed today. There is no sign of infection or cellulitis. She is progressing well. The allograft is to remain in place, undisturbed, for the next week, until her return visit. The patient is to continue wearing her graduated compression stockings of 20 to 30 mmHg compression on a daily basis. The patient is to continue elevating her legs as much as possible. The patient will return in 1 week for reassessment. A noninvasive lower extremity arterial study was normal. She has been encouraged to elevate her lower extremities as much as possible, and to avoid prolonged idle sitting. The patient has been encouraged to assure adequate nutrition. Optimizing glycemic control has also been advised. The patient will return in 1 week for reassessment. Influenza vaccine was not administered today. The patient is not a smoker. Patient weighs 265 pounds. She stands 5 feet 4 inches tall. Her BMI is 45.5, which places her in a class III category. Weight loss has been recommended, and collaboration with the patient's primary care physician has been recommended.
[2018-11-20 08:04] VITALS: BP 137/83; PULSE 119; RESP 20; TEMP 36.6; BMI 46.1
--- NOTE | 2018-11-20 08:28 | PCM.WC.HP ---
(1) Traumatic open wound of lower leg Status: Chronic Current Visit: Yes Qualifiers: Encounter type: subsequent encounter Laterality: left Qualified Code(s): S81.802D - Unspecified open wound, left lower leg, subsequent encounter Code(s): S81.809A - Unspecified open wound, unspecified lower leg, initial encounter (2) Leg swelling Status: Chronic Current Visit: Yes Code(s): M79.89 - Other specified soft tissue disorders (3) Edema of leg Status: Chronic Current Visit: Yes Code(s): R60.0 - Localized edema (4) Diabetes mellitus Status: Chronic Current Visit: No Code(s): E11.9 - Type 2 diabetes mellitus without complications (5) Morbid obesity with BMI of 45.0-49.9, adult Status: Chronic Current Visit: No Code(s): E66.01 - Morbid (severe) obesity due to excess calories; Z68.42 - Body mass index (BMI) 45.0-49.9, adult (6) COPD (chronic obstructive pulmonary disease) Status: Chronic Current Visit: No Code(s): J44.9 - Chronic obstructive pulmonary disease, unspecified (7) Coronary artery arteriosclerosis Status: Chronic Current Visit: No Code(s): I25.10 - Atherosclerotic heart disease of [place] coronary artery without angina pectoris History of Present Illness Date of Service: 11/20/18 Chief Complaint: Traumatic open wound of the left lower extremity History of Wound: This is a 58-year-old diabetic female who was in her normal state of health until approximately 2 months prior to presentation. At that time, she sustained trauma to the anterolateral aspect of the left calf, striking her leg against the bed frame. A wound resulted, which has failed to heal in normal fashion. She subsequently struck her leg against the bed frame a second time, again injuring the left lower extremity in the same location. She claims to have chronic swelling in the left lower extremity, that precedes her current injury. She sleeps in a recumbent position at night. 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 Past Medical History Past Medical History: Chronic Problems Traumatic open wound of lower leg (Chronic) Leg swelling (Chronic) Edema of leg (Chronic) Diabetes mellitus (Chronic) Morbid obesity with BMI of 45.0-49.9, adult (Chronic) COPD (chronic obstructive pulmonary disease) (Chronic) Coronary artery arteriosclerosis (Chronic) Surgical History: - - The patient has a history of coronary artery stent placement. She has undergone open reduction and internal fixation of a left tibia fracture. She underwent right meniscus repair in the past. She is a Ab0. Allergies/Adverse Reactions: Allergies No Known Allergies Allergy (Verified 09/03/13 11:12) Home Medications: Ambulatory Orders Medication Instructions Recorded Aspirin E.C. [Ecotrin] 81 mg PO DAILY@0800 09/03/13 Hydrocodone/Acetaminophen [Vicodin 1 - 2 tablet PO Q6H PRN PRN 09/03/13 5-300 mg Tablet] Lisinopril 10 mg PO DAILY 09/03/13 Metformin [Metformin HCl] 1,000 mg PO BID 09/03/13 Metoprolol Tartrate 50 mg PO DAILY 09/03/13 Dulaglutide [Trulicity] 0.75 mg SQ 01/02/18 Fluticasone/Vilanterol [Breo 1 each IH 01/02/18 Ellipta 200-25 Mcg INH] Insulin Glargine,Hum.rec.anlog 56 unit BID 01/02/18 [Lantus] Sitagliptin Phosphate [Januvia] 25 mg PO DAILY 01/02/18 Tiotropium [place] [Spiriva] 18 mcg IH 01/02/18 - Family History Paternal - - The patient's father at the age of 78 with history of chronic obstructive pulmonary disease. The patient's mother at the age of 84 with history of chronic obstructive pulmonary disease. Smoking Status: Former smoker Tobacco Use: Non-smoker Review of Systems Constitutional: Denies: Chills, Fever, Weight Change Eyes: Denies: Pain, Vision Change HEENT: Denies: Difficulty Hearing, Difficulty Swallowing, Sinus Congestion Cardiovascular: Denies: Chest Pain, Palpitations Respiratory: Denies: Cough, Shortness of Breath Gastrointestinal: Denies: Diarrhea, Nausea, Vomiting Genitourinary: Denies: Dysuria, Hematuria Endocrine: Denies: Heat/ Cold Intolerance, Polydipsia, Polyuria Hematologic/ Lymphatic: Denies: Easy Bruising, Easy Bleeding - Physical Exam Vital Signs Temp Pulse Resp BP Pulse Ox 97.8 F 119 H 20 H 137/83 H 94 11/20/18 08:04 11/20/18 08:04 11/20/18 08:04 11/20/18 08:04 10/22/18 00:27 General: Alert, Oriented x3, Cooperative, No apparent distress, Well developed, Well nourished HEENT: Atraumatic, PERRLA, EOMI, Normocephalic Oral: Moist Mucosa Neck: No JVD Lungs: Normal air movement Abdomen: Non-Distended, Obese Extremities: No clubbing, No cyanosis, No edema, No Calf Tenderness, - - The wound on the patient's left lateral calf is now completely healed and epithelialized. Skin: No rashes, No breakdown Wound Measurements and Assessment WC - Nurse 1 - General Ulcer Measurement Start: 10/23/18 08:11 Freq: Status: Active Protocol: Activity Type Activity Date Activity User E-Sign Co-Sign Detail Recorded Client Recorded Date Recorded By Document 11/20/18 08:04 DL [id number] 11/20/18 08:13 DL 11/20/18 08:04 Wound Center Nurse 1 [Ulcer Assessment] #1 L Vaz -Current Size (cm) - Length 0 -Current Size (cm) - Width 0 -Current Size (cm) - Depth 0 -Total Square Cm 0 -Photo Taken Yes -Exudate Amt None Present -Wound Margin Flat & Intact -Granulation Amt Large (67-100%) -Granulation Quality [place] -Necrosis Amt None Present (0 %) -Structure Exposed N/A -Texture (Ketty-wound Skin Appearance) Scarring -Moisture (Ketty-wound Skin Appearance Dry/Scaly ) -Color (Ketty-wound Skin Appearance) Hemosiderin Staining -Temperature (Ketty-wound Skin No Abnormality Appearance) (Pt Warm) -Tenderness on Palpation (Ketty-wound No Skin Appearance) -Ulcer Cleansing Wound Cleanser -Foul Odor after Cleansing No [Edema Assessment] -Left Calf (cm) 40.8 -Left Ankle (cm) 23.7 WC - Nurse 2 - General Ulcer CM Notes Start: 10/23/18 08:11 Freq: Status: Active Protocol: Activity Type Activity Date Activity User E-Sign Co-Sign Detail Recorded Client Recorded Date Recorded By Document 11/20/18 08:22 DL [id number] 11/20/18 08:26 DL 11/20/18 08:22 Wound Center Nurse 2 [Procedure/Treatment] #1 L Vaz -Time 08:22 -Correct Patient Yes -Correct Side, Site, Position Yes -Correct Procedure No -Procedure Performed No -Post Debridement Size (cm) - Length 0 -Post Debridement Size (cm) - Width 0 -Post Debridement Size (cm) - Depth 0 -Total Square Cm 0 -Wound/Ulcer Outcome Healed- Epithelialized [See Physician Procedure note for Specifics] Pain Scale: 0-10 Numeric [Pain] -Is Patient Pain Free? Yes Musculoskeletal: No Muscle Wasting Neurological: Cranial nerves II-XII grossly intact, Neuro grossly intact Psych/Mental Status: Normal Affect, Appropriate, Alert and oriented to time, place, person, mood and affect Debridement Note Post-Debridement Measurements/Treatment WC - Nurse 2 - General Ulcer CM Notes Start: 10/23/18 08:11 Freq: Status: Active Protocol: Activity Type Activity Date Activity User E-Sign Co-Sign Detail Recorded Client Recorded Date Recorded By Document 10/23/18 08:25 DV [id number] 10/23/18 08:26 DV Document 10/30/18 08:41 DV [id number] 10/30/18 08:42 DV Document 11/06/18 08:31 DV [id number] 11/06/18 08:35 DV Document 11/13/18 08:42 DV [id number] 11/13/18 08:45 DV Document 11/20/18 08:22 DL [id number] 11/20/18 08:26 DL 10/23/18 10/30/18 11/06/18 08:25 08:41 08:31 Wound Center Nurse 2 #1 L Vaz -Time 08:25 08:41 08:31 -Correct Patient Yes Yes Yes -Correct Side, Site, Position Yes Yes Yes -Correct Procedure No Yes Yes -Procedure Performed No Yes Yes -Type of Procedure Debridement Debridement -Clinical Debridement Subcutaneous Subcutaneous -Post Debridement Size (cm) - Length 0.2 0.9 -Post Debridement Size (cm) - Width 0.2 1.0 -Post Debridement Size (cm) - Depth 0.1 0.1 -Total Square Cm 0.04 0.90 -Wound/Ulcer Outcome Not Healed Not Healed Not Healed -Ulcer Cleansing Rinsed/ Rinsed/ Rinsed/ Irrigated with Irrigated with Irrigated with Saline Saline Saline -Foul Odor after Cleansing No No No -Bioengineered Tissue No No Yes -Type of bioengineered Tissue KEVIN-Pime -Expiration Date 04/25/19 -Product Lot Number [id number] -Percent Used 100 -Bleeding Controlled with NA Pressure -Offloading No -Treatment Response Procedure Procedure Tolerated Well Tolerated Well Pain Scale: 0-10 Numeric Is Patient Pain Free? Yes Yes Yes 11/13/18 11/20/18 08:42 08:22 Wound Center Nurse 2 #1 L Vaz -Time 08:43 08:22 -Correct Patient Yes Yes -Correct Side, Site, Position Yes Yes -Correct Procedure No No -Procedure Performed No No -Type of Procedure -Clinical Debridement -Post Debridement Size (cm) - Length 0.1 0 -Post Debridement Size (cm) - Width 0.2 0 -Post Debridement Size (cm) - Depth 0.1 0 -Total Square Cm 0.02 0 -Wound/Ulcer Outcome Not Healed Healed- Epithelialized -Ulcer Cleansing Rinsed/ Irrigated with Saline -Foul Odor after Cleansing No -Bioengineered Tissue Yes -Type of bioengineered Tissue GRAFIX-Pime -Expiration Date 09/04/19 -Product Lot Number [id number] -Percent Used 100 -Bleeding Controlled with NA -Offloading No -Treatment Response Procedure Tolerated Well Pain Scale: 0-10 Numeric Is Patient Pain Free? Yes Yes No debridement was completed today - The patient's left calf wound is now completely healed. Assessment/Plan Active Problems Traumatic open wound of lower leg (Chronic) Leg swelling (Chronic) Edema of leg (Chronic) Assessment: This is a 58-year-old female who presented with a traumatic wound on the anterolateral aspect of the left calf. The injury occurred approximately 2 months prior to presentation, and had failed to heal appropriately. The patient presented with ralph, nonviable tissue within the wound itself. She is known to be a diabetic. Patient has undergone a battery of diagnostic tests, with results as follows: Glucose 150, sodium 140, potassium 4.8, chloride 103, BUN 15, creatinine 0.80, calcium 9.5, total protein 6.7, albumin 3.9, alkaline phosphatase 61, AST 20, ALT 35, hemoglobin A1c 8.3, white blood count 6.2, hemoglobin 14.2, hematocrit 41.1, platelets 253,000. A noninvasive lower extremity arterial study was normal, revealing triphasic waveforms at ankle level bilaterally, normal resting ankle?brachial indices bilaterally, and normal digital-brachial indices bilaterally. A venous duplex examination revealed incompetence of the left great saphenous vein below the knee. The left small saphenous vein appeared competent. Plan: The 4th in a series of Grafix allografts was placed last week. The patient presents today, and her wound is now completely healed and epithelialized. The patient is to be discharged, and will be followed up henceforth on a as needed basis. She has been advised to protect the vicinity of the healed wound, to prevent any further injury to the area. The patient is to continue wearing her graduated compression stockings of 20 to 30 mmHg compression on a daily basis. The patient is to continue elevating her legs as much as possible. She is to avoid prolonged idle sitting. The patient has been encouraged to assure adequate nutrition. Optimizing glycemic control has also been advised. Weight loss has also been recommended. The patient is to be discharged. Influenza vaccine was not administered today. The patient is not a smoker. Patient weighs 265 pounds. She stands 5 feet 4 inches tall. Her BMI is 45.5, which places her in a class III category. Weight loss has been recommended, and collaboration with the patient's primary care physician has been recommended.
== END 2018-11-21 23:59 ==
LOC: WC 08:00
PROVIDERS: Family Provider Nurse Practitioner Primary Care; PCP Nurse Practitioner Primary Care; Referring Provider Surgery; Visit Provider Surgery
DX: S81.832A Puncture wound without foreign body, left lower leg, initial encounter (principal); W22.03XA Walked into furniture, initial encounter; R60.0 Localized edema; E11.9 Type 2 diabetes mellitus without complications; M79.89 Other specified soft tissue disorders; J44.9 Chronic obstructive pulmonary disease, unspecified; I25.10 Atherosclerotic heart disease of native coronary artery without angina pectoris; Z68.42 Body mass index [BMI] 45.0-49.9, adult; E66.01 Morbid (severe) obesity due to excess calories; Z71.3 Dietary counseling and surveillance; Z87.891 Personal history of nicotine dependence; Z79.899 Other long term (current) drug therapy; Z79.4 Long term (current) use of insulin; Z79.82 Long term (current) use of aspirin
CPT/HCPCS: 11042; 15271; 99212; 99213; Q4133; G0463

== ENCOUNTER 2019-03-19 08:12 | Outpatient (RCR) | payer OTHER, SELFPAY ==
[2019-03-19 08:40] VITALS: BP 128/75; PULSE 100; RESP 18; TEMP 35.8; BMI 44.9
--- NOTE | 2019-03-19 09:59 | PCM.WC.HP ---
(1) Diabetic foot wound, [place] Grade 1 Status: Chronic Current Visit: Yes (2) Ulcer of foot due to diabetes Status: Chronic Current Visit: Yes Qualifiers: Diabetic foot ulcer location: midfoot Diabetes mellitus type: type 2 Laterality: right Code(s): E11.621 - Type 2 diabetes mellitus with foot ulcer; L97.509 - Non-pressure chronic ulcer of other part of unspecified foot with unspecified severity (3) Lumbar disc disease with radiculopathy Status: Chronic Current Visit: Yes Code(s): M51.16 - Intervertebral disc disorders with radiculopathy, lumbar region (4) Traumatic open wound of lower leg Status: Chronic Current Visit: Yes Qualifiers: Encounter type: initial encounter Laterality: right Qualified Code(s): S81.801A - Unspecified open wound, right lower leg, initial encounter Code(s): S81.809A - Unspecified open wound, unspecified lower leg, initial encounter (5) Diabetes mellitus Status: Chronic Current Visit: No Qualifiers: Diabetes mellitus type: type 2 Code(s): E11.9 - Type 2 diabetes mellitus without complications (6) Morbid obesity with BMI of 45.0-49.9, adult Status: Chronic Current Visit: No Code(s): E66.01 - Morbid (severe) obesity due to excess calories; Z68.42 - Body mass index (BMI) 45.0-49.9, adult (7) COPD (chronic obstructive pulmonary disease) Status: Chronic Current Visit: No Code(s): J44.9 - Chronic obstructive pulmonary disease, unspecified (8) Coronary artery arteriosclerosis Status: Chronic Current Visit: No Code(s): I25.10 - Atherosclerotic heart disease of [place] coronary artery without angina pectoris History of Present Illness Date of Service: 03/19/19 Chief Complaint: Traumatic open wound of the left lower extremity History of Wound: This is a 58-year-old diabetic female who has been previously treated in our facility for a traumatic wound on the left lower extremity. She presents at this time with wounds in her right lower extremity. There are 2 wounds involving the right calf, which are traumatic in origin. They are located on the right anterior tibial surface and on the right lateral calf. These occurred due to impact with a car door in December 2018. Patient has been using collagen hydrogel topically. She also has a more recent ulceration on the right foot, located overlying a bunion, which has been present for only several weeks. According the patient, this has occurred as a result of a new pair of sneakers, which she obtained at a retail establishment. The patient is known to be diabetic, and her blood sugars appear to be reasonably well controlled, based upon the patient's account. The previous wound in the left lower extremity has remained healed. The patient has continued to implement conservative treatment measures previously recommended, including leg elevation, avoidance of idle standing and sitting, active lifestyle, attempts at weight loss, and the use of graduated compression stockings on a daily basis, of 20 to 30 mmHg compression. Past Medical History Past Medical History: Chronic Problems Traumatic open wound of lower leg (Chronic) Leg swelling (Chronic) Edema of leg (Chronic) Diabetes mellitus (Chronic) Morbid obesity with BMI of 45.0-49.9, adult (Chronic) COPD (chronic obstructive pulmonary disease) (Chronic) Coronary artery arteriosclerosis (Chronic) Diabetic foot wound, [place] Grade 1 (Chronic) Ulcer of foot due to diabetes (Chronic) Lumbar disc disease with radiculopathy (Chronic) Past Medical History: Patient has a recent history of sciatica and lumbar disc disease, for which she has recently undergone an epidural steroid injection. Surgical History: - - The patient has a history of coronary artery stent placement. She has undergone open reduction and internal fixation of a left tibia fracture. She underwent right meniscus repair in the past. She is a Ab0. Allergies/Adverse Reactions: Allergies bee venom protein (honey bee) Adverse Reaction (Verified 03/19/19 09:02) Swelling Home Medications: Ambulatory Orders Medication Instructions Recorded Aspirin E.C. [Ecotrin] 81 mg PO DAILY@0800 09/03/13 Hydrocodone/Acetaminophen [Vicodin 1 - 2 tablet PO Q6H PRN PRN 09/03/13 5-300 mg Tablet] Lisinopril 10 mg PO DAILY 09/03/13 Metformin [Metformin HCl] 1,000 mg PO BID 09/03/13 Metoprolol Tartrate 50 mg PO DAILY 09/03/13 Dulaglutide [Trulicity] 0.75 mg SQ 01/02/18 Fluticasone/Vilanterol [Breo 1 each IH 01/02/18 Ellipta 200-25 Mcg INH] Insulin Glargine,Hum.rec.anlog 56 unit BID 01/02/18 [Lantus] Sitagliptin Phosphate [Januvia] 25 mg PO DAILY 01/02/18 Tiotropium [place] [Spiriva] 18 mcg IH 01/02/18 - Family History Paternal - - The patient's father at the age of 78 with history of chronic obstructive pulmonary disease. The patient's mother at the age of 84 with history of chronic obstructive pulmonary disease. Smoking Status: Former smoker Tobacco Use: Non-smoker Alcohol: Occasional Drugs: None Review of Systems Constitutional: Denies: Chills, Fever, Weight Change Eyes: Denies: Pain, Vision Change HEENT: Denies: Difficulty Hearing, Difficulty Swallowing, Sinus Congestion Cardiovascular: Denies: Chest Pain, Palpitations Respiratory: Denies: Cough, Shortness of Breath Gastrointestinal: Denies: Diarrhea, Nausea, Vomiting Genitourinary: Denies: Dysuria, Hematuria Endocrine: Denies: Heat/ Cold Intolerance, Polydipsia, Polyuria Hematologic/ Lymphatic: Denies: Easy Bruising, Easy Bleeding - Physical Exam Vital Signs Temp Pulse Resp BP 96.5 F L 100 18 128/75 H 03/19/19 08:40 03/19/19 08:40 03/19/19 08:40 03/19/19 08:40 General: Alert, Oriented x3, Cooperative, No apparent distress, Well developed, Well nourished HEENT: Atraumatic, PERRLA, EOMI, Normocephalic Oral: Moist Mucosa Neck: Supple, No JVD, Negative Carotid Bruits, Negative Hepatojugular Reflux, No Nodes, No Nuchal Rigidity, Trachea Midline Lungs: Clear to auscultation, Normal air movement, No rhonchi, No wheeze, No rales, Diminished Cardiovascular: Regular rate, Regular Rhythm, Normal S1, Normal S2, No murmurs Abdomen: Soft, Non Tender, Non-Distended, Obese Extremities: No clubbing, No cyanosis, No edema, No Calf Tenderness, - - Traumatic wounds are noted on the right lower extremity, located on the right anterior tibial surface and on the right lateral calf. That on the right anterior tibial surface is the larger of the 2. There is a large amount of bioburden and nonviable tissue. Dimensions are documented elsewhere. There is slight surrounding erythema. The wound on the right lateral calf is the smaller the 2, with a mild amount of bioburden. Dimensions are documented elsewhere. There is also a small ulceration overlying a bunion on the right foot. Dimensions are documented elsewhere. There is no sign of infection or cellulitis at the site. This appears to represent a [place] grade 1 diabetic foot ulceration. There is a moderate amount of callus in this area. Wound Measurements and Assessment WC - Nurse 1 - General Ulcer Measurement Start: 03/19/19 08:40 Freq: Status: Active Protocol: Activity Type Activity Date Activity User E-Sign Co-Sign Detail Recorded Client Recorded Date Recorded By Document 03/19/19 08:40 DL [id number] 03/19/19 08:59 DL 03/19/19 08:40 Wound Center Nurse 1 [Ulcer Assessment] #4 R Lat Met Head -Current Size (cm) - Length 0.4 -Current Size (cm) - Width 0.4 -Current Size (cm) - Depth 0.1 -Total Square Cm 0.16 -Photo Taken Yes -Exudate Amt None Present -Exudate Type Serosanguineous -Wound Margin Thickened -Granulation Amt Large (67-100%) -Granulation Quality [place] -Necrosis Amt None Present (0 %) -Structure Exposed N/A -Texture (Ketty-wound Skin Appearance) Callus -Moisture (Ketty-wound Skin Appearance Dry/Scaly ) -Color (Ketty-wound Skin Appearance) No Abnormality -Temperature (Ktety-wound Skin No Abnormality Appearance) (Pt Warm) -Tenderness on Palpation (Ketty-wound No Skin Appearance) -Ulcer Cleansing Rinsed/ Irrigated with Saline -Foul Odor after Cleansing No -Anesthetic Used 5% Lidocaine Gel #3 R Lat LE -Current Size (cm) - Length 0.6 -Current Size (cm) - Width 0.7 -Current Size (cm) - Depth 0.1 -Total Square Cm 0.42 -Photo Taken Yes -Epithelialization Small 1-33% -Classification - Thickness Full Thickness without Exposed Support Structure -Exudate Amt None Present -Wound Margin Distinct, Outline Attached -Granulation Amt Small (1-33%) -Granulation Quality [place] -Necrosis Amt Large (67-100%) -Necrotic Tissue Type Adherent Slough -Structure Exposed N/A -Texture (Ketty-wound Skin Appearance) Scarring -Moisture (Ketty-wound Skin Appearance Dry/Scaly ) -Color (Ketty-wound Skin Appearance) Erythema -Temperature (Ketty-wound Skin No Abnormality Appearance) (Pt Warm) -Tenderness on Palpation (Ketty-wound No Skin Appearance) -Ulcer Cleansing Rinsed/ Irrigated with Saline -Foul Odor after Cleansing No -Anesthetic Used 5% Lidocaine Gel #2 R Vaz -Current Size (cm) - Length 2 -Current Size (cm) - Width 1.1 -Current Size (cm) - Depth 0.1 -Total Square Cm 2.2 -Photo Taken Yes -Epithelialization None Present -Classification - Thickness Full Thickness without Exposed Support Structure -Exudate Amt Small -Exudate Type Yellow/Green -Wound Margin Distinct, Outline Attached -Granulation Amt None Present (0 %) -Necrosis Amt Large (67-100%) -Necrotic Tissue Type Adherent Slough -Structure Exposed N/A -Texture (Ketty-wound Skin Appearance) Scarring -Moisture (Ketty-wound Skin Appearance Dry/Scaly ) -Color (Ketty-wound Skin Appearance) Erythema -Temperature (Ketty-wound Skin No Abnormality Appearance) (Pt Warm) -Tenderness on Palpation (Ketty-wound Yes Skin Appearance) -Ulcer Cleansing Rinsed/ Irrigated with Saline -Foul Odor after Cleansing No -Anesthetic Used 5% Lidocaine Gel [Edema Assessment] -Right Calf (cm) 41.3 -Right Ankle (cm) 23.4 -Left Calf (cm) 41.4 -Left Ankle (cm) 23 WC - Nurse 2 - General Ulcer CM Notes Start: 03/19/19 08:40 Freq: Status: Active Protocol: Activity Type Activity Date Activity User E-Sign Co-Sign Detail Recorded Client Recorded Date Recorded By Document 03/19/19 09:42 [id number] 03/19/19 09:56 03/19/19 09:42 Wound Center Nurse 2 [Procedure/Treatment] #4 R Lat Met Head -Time 09:55 -Correct Patient Yes -Correct Side, Site, Position Yes -Correct Procedure Yes -Procedure Performed Yes -Type of Procedure Debridement -Clinical Debridement Subcutaneous -Post Debridement Size (cm) - Length 0.4 -Post Debridement Size (cm) - Width 0.2 -Post Debridement Size (cm) - Depth 0.2 -Total Square Cm 0.08 -Wound/Ulcer Outcome Not Healed -Ulcer Cleansing Rinsed/ Irrigated with Saline -Foul Odor after Cleansing No -Bioengineered Tissue No -Bleeding Controlled with Pressure -Offloading No -Treatment Response Procedure Tolerated Well #3 R Lat LE -Time 09:55 -Correct Patient Yes -Correct Side, Site, Position Yes -Correct Procedure Yes -Procedure Performed Yes -Type of Procedure Debridement -Clinical Debridement Subcutaneous -Post Debridement Size (cm) - Length 0.6 -Post Debridement Size (cm) - Width 0.6 -Post Debridement Size (cm) - Depth 0.2 -Total Square Cm 0.36 -Wound/Ulcer Outcome Not Healed -Ulcer Cleansing Rinsed/ Irrigated with Saline -Foul Odor after Cleansing No -Bioengineered Tissue No -Bleeding Controlled with Pressure -Offloading No -Treatment Response Procedure Tolerated Well #2 R Vaz -Time 09:55 -Correct Patient Yes -Correct Side, Site, Position Yes -Correct Procedure Yes -Procedure Performed Yes -Type of Procedure Debridement -Clinical Debridement Subcutaneous -Post Debridement Size (cm) - Length 1.9 -Post Debridement Size (cm) - Width 1.7 -Post Debridement Size (cm) - Depth 0.2 -Total Square Cm 3.23 -Wound/Ulcer Outcome Not Healed -Ulcer Cleansing Rinsed/ Irrigated with Saline -Foul Odor after Cleansing No -Bioengineered Tissue No -Bleeding Controlled with Pressure -Offloading No -Treatment Response Procedure Tolerated Well [See Physician Procedure note for Specifics] Pain Scale: 0-10 Numeric [Pain] -Is Patient Pain Free? Yes Debridement Note Post-Debridement Measurements/Treatment WC - Nurse 2 - General Ulcer CM Notes Start: 03/19/19 08:40 Freq: Status: Active Protocol: Activity Type Activity Date Activity User E-Sign Co-Sign Detail Recorded Client Recorded Date Recorded By Document 03/19/19 09:42 [id number] 03/19/19 09:56 03/19/19 09:42 Wound Center Nurse 2 #4 R Lat Met Head -Time 09:55 -Correct Patient Yes -Correct Side, Site, Position Yes -Correct Procedure Yes -Procedure Performed Yes -Type of Procedure Debridement -Clinical Debridement Subcutaneous -Post Debridement Size (cm) - Length 0.4 -Post Debridement Size (cm) - Width 0.2 -Post Debridement Size (cm) - Depth 0.2 -Total Square Cm 0.08 -Wound/Ulcer Outcome Not Healed -Ulcer Cleansing Rinsed/ Irrigated with Saline -Foul Odor after Cleansing No -Bioengineered Tissue No -Bleeding Controlled with Pressure -Offloading No -Treatment Response Procedure Tolerated Well #3 R Lat LE -Time 09:55 -Correct Patient Yes -Correct Side, Site, Position Yes -Correct Procedure Yes -Procedure Performed Yes -Type of Procedure Debridement -Clinical Debridement Subcutaneous -Post Debridement Size (cm) - Length 0.6 -Post Debridement Size (cm) - Width 0.6 -Post Debridement Size (cm) - Depth 0.2 -Total Square Cm 0.36 -Wound/Ulcer Outcome Not Healed -Ulcer Cleansing Rinsed/ Irrigated with Saline -Foul Odor after Cleansing No -Bioengineered Tissue No -Bleeding Controlled with Pressure -Offloading No -Treatment Response Procedure Tolerated Well #2 R Vaz -Time 09:55 -Correct Patient Yes -Correct Side, Site, Position Yes -Correct Procedure Yes -Procedure Performed Yes -Type of Procedure Debridement -Clinical Debridement Subcutaneous -Post Debridement Size (cm) - Length 1.9 -Post Debridement Size (cm) - Width 1.7 -Post Debridement Size (cm) - Depth 0.2 -Total Square Cm 3.23 -Wound/Ulcer Outcome Not Healed -Ulcer Cleansing Rinsed/ Irrigated with Saline -Foul Odor after Cleansing No -Bioengineered Tissue No -Bleeding Controlled with Pressure -Offloading No -Treatment Response Procedure Tolerated Well Pain Scale: 0-10 Numeric Is Patient Pain Free? Yes Laterality: Right - Tear tibial surface Type of Debridement: Excisional debridement Anesthesia Used: 5% Lidocaine Gel Depth: Down to and including healthy tissue, in the subcutaneous layer Percentage of wound debrided: 100 Instrument Used: 5mm curette Tissue Removed: Bioburden and nonviable tissue Severity: Fat Layer Exposed Bleeding Controlled with: Compression and gauze Patient tolerated procedure well Swab cultures were obtained for both aerobic and anaerobic bacterial growth. - Additional Wound Laterality: Right - Lateral calf Type of Debridement: Excisional debridement Anesthesia Used: 5% Lidocaine Gel Depth: Down to and including healthy tissue, in the subcutaneous layer Percentage of wound debrided: 100 Instrument Used: 5mm curette Tissue Removed: Bioburden and nonviable tissue Severity: Fat Layer Exposed Amount of bleeding with debridement: Mild Bleeding Controlled with: Compression and gauze Patient tolerated procedure: Patient tolerated procedure well - Additional Wound Laterality: Right - Foot Type of Debridement: Excisional debridement Anesthesia Used: 5% Lidocaine Gel Depth: Down to and including healthy tissue, in the subcutaneous layer Instrument Used: 5mm curette Tissue Removed: Bioburden and nonviable tissue Severity: Fat Layer Exposed Amount of bleeding with debridement: Mild Bleeding Controlled with: Compression and gauze Patient tolerated procedure: Patient tolerated procedure well Assessment/Plan Active Problems Traumatic open wound of lower leg (Chronic) Diabetic foot wound, [place] Grade 1 (Chronic) Ulcer of foot due to diabetes (Chronic) Lumbar disc disease with radiculopathy (Chronic) Assessment: This is a 58-year-old female who presented with medical wounds on the right lower extremity, of several months duration. Despite the use of collagen hydrogel, there is been no significant improvement. The patient is known to be a diabetic. Additionally, she has developed callus and an ulceration overlying a bunion on the right foot. This appears to be pressure related due to poor fitting shoes. A noninvasive lower extremity arterial study performed about 1 year ago was normal, revealing triphasic waveforms at ankle level bilaterally, normal resting ankle?brachial indices bilaterally, and normal digital-brachial indices bilaterally. Plan: Patient has been counseled as to the appropriate foot care necessary in diabetic patients. To initiate the use of a postop shoe for offloading relative to the ulceration of the right foot. Patient has been advised to optimize her glycemic control. Adequate nutrition has been advised. We are to initiate the use of collagen hydrogel topically relative to the ulceration of the right foot. We have cultured the traumatic wound on the right anterior tibial surface, the results of which will be awaited. We are to initiate the use of collagenase [place] topically to each of the 2 traumatic wounds on the calf. The patient has recently undergone laboratory studies by her primary care physician in [place], and these results will be requested. The patient is to return in 1 week for reassessment. The patient is to continue wearing her graduated compression stockings of 20 to 30 mmHg compression on a daily basis. The patient is to continue elevating her legs as much as possible. She is to avoid prolonged idle sitting. The patient has been encouraged to assure adequate nutrition. Optimizing glycemic control has also been advised. Weight loss has also been recommended. Influenza vaccine was not administered today. The patient is not a smoker. Patient weighs 265 pounds. She stands 5 feet 4 inches tall. Her BMI is 45.5, which places her in a class III category. Weight loss has been recommended, and collaboration with the patient's primary care physician has been recommended.
== END 2019-03-23 23:59 ==
LOC: WC 08:12
PROVIDERS: Family Provider Nurse Practitioner Primary Care; PCP Nurse Practitioner Primary Care; Referring Provider Surgery; Visit Provider Surgery
DX: E11.621 Type 2 diabetes mellitus with foot ulcer (principal); L97.512 Non-pressure chronic ulcer of other part of right foot with fat layer exposed; M21.611 Bunion of right foot; M51.16 Intervertebral disc disorders with radiculopathy, lumbar region; Z68.42 Body mass index [BMI] 45.0-49.9, adult; E66.01 Morbid (severe) obesity due to excess calories; J44.9 Chronic obstructive pulmonary disease, unspecified; I25.10 Atherosclerotic heart disease of native coronary artery without angina pectoris; S81.831A Puncture wound without foreign body, right lower leg, initial encounter; W22.8XXA Striking against or struck by other objects, initial encounter; Z87.891 Personal history of nicotine dependence
CPT/HCPCS: 11042; 87070; 87075; 87077; 87186; 87205; 99213; G0463

== ENCOUNTER 2019-04-22 16:00 | Outpatient (RCR) | payer OTHER, SELFPAY ==
[2019-03-24 01:22] VITALS: BP 128/75; PULSE 100; RESP 18; TEMP 35.8
[2019-03-26 08:20] VITALS: BP 123/77; PULSE 94; RESP 18; TEMP 35.9; BMI 44.9
--- NOTE | 2019-03-26 08:58 | HP.PCM_ITS ---
(1) Traumatic open wound of lower leg Status: Chronic Current Visit: Yes Qualifiers: Encounter type: subsequent encounter Laterality: right Qualified Code(s): S81.801D - Unspecified open wound, right lower leg, subsequent encounter Code(s): S81.809A - Unspecified open wound, unspecified lower leg, initial encounter (2) Leg swelling Status: Chronic Current Visit: Yes Code(s): M79.89 - Other specified soft tissue disorders (3) Edema of leg Status: Chronic Current Visit: Yes Code(s): R60.0 - Localized edema (4) Diabetes mellitus Status: Chronic Current Visit: Yes Qualifiers: Diabetes mellitus type: type 2 Code(s): E11.9 - Type 2 diabetes mellitus without complications (5) Morbid obesity with BMI of 45.0-49.9, adult Status: Chronic Current Visit: Yes Code(s): E66.01 - Morbid (severe) obesity due to excess calories; Z68.42 - Body mass index (BMI) 45.0-49.9, adult (6) COPD (chronic obstructive pulmonary disease) Status: Chronic Current Visit: No Code(s): J44.9 - Chronic obstructive pulmonary disease, unspecified (7) Coronary artery arteriosclerosis Status: Chronic Current Visit: No Code(s): I25.10 - Atherosclerotic heart disease of [place] coronary artery without angina pectoris (8) Diabetic foot wound, Hubbard Grade 1 Status: Chronic Current Visit: Yes (9) Ulcer of foot due to diabetes Status: Chronic Current Visit: Yes Qualifiers: Diabetic foot ulcer location: midfoot Diabetes mellitus type: type 2 Laterality: right Non-pressure ulcer stage: with fat layer exposed Qualified Code(s): E11.621 - Type 2 diabetes mellitus with foot ulcer; L97.412 - Non- pressure chronic ulcer of right heel and midfoot with fat layer exposed Code(s): E11.621 - Type 2 diabetes mellitus with foot ulcer; L97.509 - Non- pressure chronic ulcer of other part of unspecified foot with unspecified severity (10) Lumbar disc disease with radiculopathy Status: Chronic Current Visit: No Code(s): M51.16 - Intervertebral disc disorders with radiculopathy, lumbar region History of Present Illness Date of Service: 03/26/19 Chief Complaint: Traumatic open wound of the right lower extremity, Diabetic right foot wound - Hubbard Grade 1 History of Wound: This is a 58-year-old diabetic female who has been previously treated in our facility for a traumatic wound on the left lower extremity. She presented this time with wounds in her right lower extremity. There are 2 wounds involving the right calf, which are traumatic in origin. They are located on the right anterior tibial surface and on the right lateral calf. These occurred due to impact with a car door in December 2018. Patient has been using collagen hydrogel topically. She also has a more recent ulceration on the right foot, located overlying a bunion, which has been present for only several weeks. According the patient, this has occurred as a result of a new pair of sneakers, which she obtained at a retail establishment. The patient is known to be diabetic, and her blood sugars appear to be reasonably well controlled, based upon the patient's account. The previous wound in the left lower extremity has remained healed. The patient has continued to implement conservative treatment measures previously recommended, including leg elevation, avoidance of idle standing and sitting, active lifestyle, attempts at weight loss, and the use of graduated compression stockings on a daily basis, of 20 to 30 mmHg compression. Past Medical History Past Medical History: Chronic Problems Traumatic open wound of lower leg (Chronic) Leg swelling (Chronic) Edema of leg (Chronic) Diabetes mellitus (Chronic) Morbid obesity with BMI of 45.0-49.9, adult (Chronic) COPD (chronic obstructive pulmonary disease) (Chronic) Coronary artery arteriosclerosis (Chronic) Diabetic foot wound, Hubbard Grade 1 (Chronic) Ulcer of foot due to diabetes (Chronic) Lumbar disc disease with radiculopathy (Chronic) Surgical History: - - The patient has a history of coronary artery stent placement. She has undergone open reduction and internal fixation of a left tibia fracture. She underwent right meniscus repair in the past. She is a Ab0. Allergies/Adverse Reactions: Allergies bee venom protein (honey bee) Adverse Reaction (Verified 03/19/19 09:02) Swelling Home Medications: Ambulatory Orders Medication Instructions Recorded Aspirin E.C. [Ecotrin] 81 mg PO DAILY@0800 09/03/13 Hydrocodone/Acetaminophen [Vicodin 1 - 2 tablet PO Q6H PRN PRN 09/03/13 5-300 mg Tablet] Lisinopril 10 mg PO DAILY 09/03/13 Metformin [Metformin HCl] 1,000 mg PO BID 09/03/13 Metoprolol Tartrate 50 mg PO DAILY 09/03/13 Dulaglutide [Trulicity] 0.75 mg SQ 01/02/18 Fluticasone/Vilanterol [Breo 1 each IH 01/02/18 Ellipta 200-25 Mcg INH] Insulin Glargine,Hum.rec.anlog 56 unit BID 01/02/18 [Lantus] Sitagliptin Phosphate [Januvia] 25 mg PO DAILY 01/02/18 Tiotropium [place] [Spiriva] 18 mcg IH 01/02/18 - Family History Paternal - - The patient's father at the age of 78 with history of chronic obstructive pulmonary disease. The patient's mother at the age of 84 with history of chronic obstructive pulmonary disease. Smoking Status: Former smoker Tobacco Use: Non-smoker Review of Systems Constitutional: Denies: Chills, Fever, Weight Change Eyes: Denies: Pain, Vision Change HEENT: Denies: Difficulty Hearing, Difficulty Swallowing, Sinus Congestion Cardiovascular: Denies: Chest Pain, Palpitations Respiratory: Denies: Cough, Shortness of Breath Gastrointestinal: Denies: Diarrhea, Nausea, Vomiting Genitourinary: Denies: Dysuria, Hematuria Endocrine: Denies: Heat/ Cold Intolerance, Polydipsia, Polyuria Hematologic/ Lymphatic: Denies: Easy Bruising, Easy Bleeding - Physical Exam Vital Signs Temp Pulse Resp BP 96.6 F L 94 18 123/77 H 03/26/19 08:20 03/26/19 08:20 03/26/19 08:20 03/26/19 08:20 General: Alert, Oriented x3, Cooperative, No apparent distress, Well developed, Well nourished HEENT: Atraumatic, PERRLA, EOMI, Normocephalic Oral: Moist Mucosa Neck: No JVD Lungs: Normal air movement Abdomen: Non-Distended Extremities: No clubbing, No cyanosis, No Calf Tenderness, - - Slight swelling and edema are noted in the right lower extremity. The traumatic wounds on the right anterior and lateral calf persists. There is a moderate amount of bioburden and nonviable tissue. There is also slight erythema, suspected to be cellulitic in nature. Dimensions are documented elsewhere. The ulceration on the right foot overlying the bunion persists. There is no sign of infection or cellulitis at that site. Dimensions are documented elsewhere. There is a mild amount of bioburden. Significant callus surrounds this ulceration. Wound Measurements and Assessment WC - Nurse 1 - General Ulcer Measurement Start: 03/26/19 08:20 Freq: Status: Active Protocol: Activity Type Activity Date Activity User E-Sign Co-Sign Detail Recorded Client Recorded Date Recorded By Document 03/26/19 08:20 DL [id number] 03/26/19 08:24 DL 03/26/19 08:20 Wound Center Nurse 1 [Ulcer Assessment] #4 R Lat Met Head -Current Size (cm) - Length 0.2 -Current Size (cm) - Width 0.4 -Current Size (cm) - Depth 0.1 -Total Square Cm 0.08 -Photo Taken No -Exudate Amt None Present -Wound Margin Thickened -Granulation Amt Small (1-33%) -Granulation Quality Pale -Necrosis Amt None Present (0 %) -Structure Exposed N/A -Texture (Ketty-wound Skin Appearance) Callus -Moisture (Ketty-wound Skin Appearance Dry/Scaly ) -Color (Ketty-wound Skin Appearance) No Abnormality -Temperature (Ketty-wound Skin No Abnormality Appearance) (Pt Warm) -Tenderness on Palpation (Ketty-wound No Skin Appearance) -Ulcer Cleansing Rinsed/ Irrigated with Saline -Foul Odor after Cleansing No -Anesthetic Used 4% Lidocaine Solution #3 R Lat LE -Current Size (cm) - Length 0.8 -Current Size (cm) - Width 0.6 -Current Size (cm) - Depth 0.2 -Total Square Cm 0.48 -Exudate Amt Small -Exudate Type Serosanguineous -Wound Margin Distinct, Outline Attached -Granulation Amt None Present (0 %) -Necrosis Amt Small (1-33%) -Necrotic Tissue Type Adherent Slough -Structure Exposed N/A -Texture (Ketty-wound Skin Appearance) Scarring -Color (Ketty-wound Skin Appearance) Hemosiderin Staining -Temperature (Ketty-wound Skin No Abnormality Appearance) (Pt Warm) -Tenderness on Palpation (Ketty-wound No Skin Appearance) -Ulcer Cleansing Rinsed/ Irrigated with Saline -Foul Odor after Cleansing No -Anesthetic Used 4% Lidocaine Solution #2 R Vaz -Current Size (cm) - Length 2 -Current Size (cm) - Width 1.5 -Current Size (cm) - Depth 0.2 -Total Square Cm 3.0 -Photo Taken No -Exudate Amt Small -Exudate Type Serosanguineous -Wound Margin Distinct, Outline Attached -Granulation Amt Medium (34-66%) -Granulation Quality Red -Necrosis Amt Medium (34-66%) -Necrotic Tissue Type Adherent Slough -Structure Exposed N/A -Texture (Ketty-wound Skin Appearance) No Abnormality, Scarring -Moisture (Ketty-wound Skin Appearance Dry/Scaly ) -Color (Ketty-wound Skin Appearance) Hemosiderin Staining -Temperature (Ketty-wound Skin No Abnormality Appearance) (Pt Warm) -Tenderness on Palpation (Ketty-wound No Skin Appearance) -Ulcer Cleansing Rinsed/ Irrigated with Saline -Foul Odor after Cleansing No -Anesthetic Used 4% Lidocaine Solution [Edema Assessment] -Right Calf (cm) 41.5 -Right Ankle (cm) 21.5 WC - Nurse 2 - General Ulcer CM Notes Start: 03/26/19 08:20 Freq: Status: Active Protocol: Activity Type Activity Date Activity User E-Sign Co-Sign Detail Recorded Client Recorded Date Recorded By Document 03/26/19 08:50 DV [id number] 03/26/19 08:57 DV 03/26/19 08:50 Wound Center Nurse 2 [Procedure/Treatment] #4 R Lat Met Head -Time 08:51 -Correct Patient Yes -Correct Side, Site, Position Yes -Correct Procedure Yes -Procedure Performed Yes -Type of Procedure Debridement -Clinical Debridement Subcutaneous -Post Debridement Size (cm) - Length 0.7 -Post Debridement Size (cm) - Width 0.5 -Post Debridement Size (cm) - Depth 0.3 -Total Square Cm 0.35 -Wound/Ulcer Outcome Not Healed -Bleeding Controlled with Pressure -Offloading No -Type of Offloading Surgical Shoe -Treatment Response Procedure Tolerated Well #3 R Lat LE -Time 08:53 -Correct Patient Yes -Correct Side, Site, Position Yes -Correct Procedure Yes -Procedure Performed Yes -Type of Procedure Debridement -Clinical Debridement Subcutaneous -Post Debridement Size (cm) - Length 0.6 -Post Debridement Size (cm) - Width 0.5 -Post Debridement Size (cm) - Depth 0.2 -Total Square Cm 0.30 -Wound/Ulcer Outcome Not Healed -Ulcer Cleansing Rinsed/ Irrigated with Saline -Foul Odor after Cleansing No -Bioengineered Tissue No -Bleeding Controlled with Pressure -Offloading No -Type of Offloading Surgical Shoe -Treatment Response Procedure Tolerated Well #2 R Vaz -Time 08:55 -Correct Patient Yes -Correct Side, Site, Position Yes -Correct Procedure Yes -Procedure Performed Yes -Type of Procedure Debridement -Clinical Debridement Subcutaneous -Post Debridement Size (cm) - Length 2.3 -Post Debridement Size (cm) - Width 1.6 -Post Debridement Size (cm) - Depth 0.3 -Total Square Cm 3.68 -Wound/Ulcer Outcome Not Healed -Ulcer Cleansing Rinsed/ Irrigated with Saline -Foul Odor after Cleansing No -Bioengineered Tissue No -Bleeding Controlled with Pressure -Offloading Yes -Type of Offloading Surgical Shoe -Treatment Response Procedure Tolerated Well [See Physician Procedure note for Specifics] Pain Scale: 0-10 Numeric [Pain] -Is Patient Pain Free? Yes Musculoskeletal: No Muscle Wasting Neurological: Cranial nerves II-XII grossly intact, Neuro grossly intact Psych/Mental Status: Normal Affect, Appropriate, Alert and oriented to time, place, person, mood and affect Debridement Note Post-Debridement Measurements/Treatment WC - Nurse 2 - General Ulcer CM Notes Start: 03/26/19 08:20 Freq: Status: Active Protocol: Activity Type Activity Date Activity User E-Sign Co-Sign Detail Recorded Client Recorded Date Recorded By Document 03/26/19 08:50 DV [id number] 03/26/19 08:57 DV 03/26/19 08:50 Wound Center Nurse 2 #4 R Lat Met Head -Time 08:51 -Correct Patient Yes -Correct Side, Site, Position Yes -Correct Procedure Yes -Procedure Performed Yes -Type of Procedure Debridement -Clinical Debridement Subcutaneous -Post Debridement Size (cm) - Length 0.7 -Post Debridement Size (cm) - Width 0.5 -Post Debridement Size (cm) - Depth 0.3 -Total Square Cm 0.35 -Wound/Ulcer Outcome Not Healed -Bleeding Controlled with Pressure -Offloading No -Type of Offloading Surgical Shoe -Treatment Response Procedure Tolerated Well #3 R Lat LE -Time 08:53 -Correct Patient Yes -Correct Side, Site, Position Yes -Correct Procedure Yes -Procedure Performed Yes -Type of Procedure Debridement -Clinical Debridement Subcutaneous -Post Debridement Size (cm) - Length 0.6 -Post Debridement Size (cm) - Width 0.5 -Post Debridement Size (cm) - Depth 0.2 -Total Square Cm 0.30 -Wound/Ulcer Outcome Not Healed -Ulcer Cleansing Rinsed/ Irrigated with Saline -Foul Odor after Cleansing No -Bioengineered Tissue No -Bleeding Controlled with Pressure -Offloading No -Type of Offloading Surgical Shoe -Treatment Response Procedure Tolerated Well #2 R Vaz -Time 08:55 -Correct Patient Yes -Correct Side, Site, Position Yes -Correct Procedure Yes -Procedure Performed Yes -Type of Procedure Debridement -Clinical Debridement Subcutaneous -Post Debridement Size (cm) - Length 2.3 -Post Debridement Size (cm) - Width 1.6 -Post Debridement Size (cm) - Depth 0.3 -Total Square Cm 3.68 -Wound/Ulcer Outcome Not Healed -Ulcer Cleansing Rinsed/ Irrigated with Saline -Foul Odor after Cleansing No -Bioengineered Tissue No -Bleeding Controlled with Pressure -Offloading Yes -Type of Offloading Surgical Shoe -Treatment Response Procedure Tolerated Well Pain Scale: 0-10 Numeric Is Patient Pain Free? Yes Laterality: Right - Anterior and lateral calf Type of Debridement: Excisional debridement Anesthesia Used: 5% Lidocaine Gel Depth: Down to and including healthy tissue, in the subcutaneous layer Percentage of wound debrided: 100 Instrument Used: 5mm curette Tissue Removed: Bioburden and nonviable tissue Severity: Fat Layer Exposed Amount of bleeding with debridement: Mild Bleeding Controlled with: Compression and gauze Patient tolerated procedure well - Additional Wound Laterality: Right - Foot, overlying bunion Type of Debridement: Excisional debridement Anesthesia Used: 5% Lidocaine Gel Depth: Down to and including healthy tissue, in the subcutaneous layer Percentage of wound debrided: 100 Instrument Used: 5mm curette Tissue Removed: Bioburden and nonviable tissue, as well as surrounding callus tissue Severity: Fat Layer Exposed Amount of bleeding with debridement: Mild Bleeding Controlled with: Compression and gauze Patient tolerated procedure: Patient tolerated procedure well Assessment/Plan Active Problems Traumatic open wound of lower leg (Chronic) Leg swelling (Chronic) Edema of leg (Chronic) Diabetes mellitus (Chronic) Morbid obesity with BMI of 45.0-49.9, adult (Chronic) Diabetic foot wound, Hubbard Grade 1 (Chronic) Ulcer of foot due to diabetes (Chronic) Assessment: This is a 58-year-old female who presented with traumatic wounds on the right lower extremity, of several months duration. Despite the use of collagen hydrogel, there has been no significant improvement. The patient is known to be a diabetic. Additionally, she has developed callus and an ulceration overlying a bunion on the right foot. This appears to be pressure related due to poor fitting shoes. A noninvasive lower extremity arterial study performed about 1 year ago was normal, revealing triphasic waveforms at ankle level bilaterally, normal resting ankle?brachial indices bilaterally, and normal digital-brachial indices bilaterally. Recent laboratory studies have been obtained, dated February 22, 2019, with results as follows: White blood count 6.2, hemoglobin 14.1, hematocrit 43.4, platelets 218,000, glucose 143, sodium 137, potassium 4.3, chloride 100, BUN 18, creatinine 0.80, calcium 9.5, total protein 6.6, albumin 3.6, hemoglobin A1c 8.3. Additionally, cultures obtained last week were positive for Leclercia adecoxylata, Staphlococcus lugdunensis, and Corynebacterium amycolatum. The patient has been started on Augmentin 875 mg p.o. twice daily several days ago, for a total of 10 days. Plan: Patient has been counseled as to the appropriate foot care necessary in diabetic patients. To initiate the use of a postop shoe for offloading relative to the ulceration of the right foot. Patient has been advised to optimize her glycemic control. Adequate nutrition has been advised. We are to continue the use of collagen hydrogel topically relative to the ulceration of the right foot. We are to continue the use of collagenase Santyl topically to each of the 2 traumatic wounds on the right calf. The patient is to return in 1 week for reassessment. The patient is to continue wearing her graduated compression stockings of 20 to 30 mmHg compression on a daily basis. The patient is to continue elevating her legs as much as possible. She is to avoid prolonged idle sitting. The patient has been encouraged to assure adequate nutrition. Optimizing glycemic control has also been advised. Weight loss has also been recommended. We are to consider the use of a skin graft substitute such as Grafix PL in the near future, once the wound infection appears to have resolved. Influenza vaccine was not administered today. The patient is not a smoker. Patient weighs 265 pounds. She stands 5 feet 4 inches tall. Her BMI is 45.5, which places her in a class III category. Weight loss has been recommended, and collaboration with the patient's primary care physician has been recommended.
[2019-04-02 08:15] VITALS: BP 167/86; PULSE 106; RESP 18; BMI 44.9
--- NOTE | 2019-04-02 09:19 | PCM.WC.HP ---
(1) Traumatic open wound of lower leg Status: Chronic Current Visit: Yes Qualifiers: Encounter type: subsequent encounter Laterality: right Qualified Code(s): S81.801D - Unspecified open wound, right lower leg, subsequent encounter Code(s): S81.809A - Unspecified open wound, unspecified lower leg, initial encounter (2) Leg swelling Status: Chronic Current Visit: Yes Code(s): M79.89 - Other specified soft tissue disorders (3) Edema of leg Status: Chronic Current Visit: Yes Code(s): R60.0 - Localized edema (4) Diabetes mellitus Status: Chronic Current Visit: Yes Qualifiers: Diabetes mellitus type: type 2 Code(s): E11.9 - Type 2 diabetes mellitus without complications (5) Morbid obesity with BMI of 45.0-49.9, adult Status: Chronic Current Visit: Yes Code(s): E66.01 - Morbid (severe) obesity due to excess calories; Z68.42 - Body mass index (BMI) 45.0-49.9, adult (6) COPD (chronic obstructive pulmonary disease) Status: Chronic Current Visit: No Code(s): J44.9 - Chronic obstructive pulmonary disease, unspecified (7) Coronary artery arteriosclerosis Status: Chronic Current Visit: No Code(s): I25.10 - Atherosclerotic heart disease of [place] coronary artery without angina pectoris (8) Diabetic foot wound, Hubbard Grade 1 Status: Chronic Current Visit: Yes (9) Ulcer of foot due to diabetes Status: Chronic Current Visit: Yes Qualifiers: Diabetic foot ulcer location: midfoot Diabetes mellitus type: type 2 Laterality: right Non-pressure ulcer stage: with fat layer exposed Qualified Code(s): E11.621 - Type 2 diabetes mellitus with foot ulcer; L97.412 - Non-pressure chronic ulcer of right heel and midfoot with fat layer exposed Code(s): E11.621 - Type 2 diabetes mellitus with foot ulcer; L97.509 - Non-pressure chronic ulcer of other part of unspecified foot with unspecified severity (10) Lumbar disc disease with radiculopathy Status: Chronic Current Visit: No Code(s): M51.16 - Intervertebral disc disorders with radiculopathy, lumbar region History of Present Illness Date of Service: 04/02/19 Chief Complaint: Traumatic open wound of the right lower extremity, Diabetic right foot wound - Hubbard Grade 1 History of Wound: This is a 58-year-old diabetic female who has been previously treated in our facility for a traumatic wound on the left lower extremity. She presented this time with wounds in her right lower extremity. There are 2 wounds involving the right calf, which are traumatic in origin. They are located on the right anterior tibial surface and on the right lateral calf. These occurred due to impact with a car door in December 2018. Patient has been using collagen hydrogel topically. She also has a more recent ulceration on the right foot, located overlying a bunion, which has been present for only several weeks. According the patient, this has occurred as a result of a new pair of sneakers, which she obtained at a retail establishment. The patient is known to be diabetic, and her blood sugars appear to be reasonably well controlled, based upon the patient's account. The previous wound in the left lower extremity has remained healed. The patient has continued to implement conservative treatment measures previously recommended, including leg elevation, avoidance of idle standing and sitting, active lifestyle, attempts at weight loss, and the use of graduated compression stockings on a daily basis, of 20 to 30 mmHg compression. Past Medical History Past Medical History: Chronic Problems Traumatic open wound of lower leg (Chronic) Leg swelling (Chronic) Edema of leg (Chronic) Diabetes mellitus (Chronic) Morbid obesity with BMI of 45.0-49.9, adult (Chronic) COPD (chronic obstructive pulmonary disease) (Chronic) Coronary artery arteriosclerosis (Chronic) Diabetic foot wound, Hubbard Grade 1 (Chronic) Ulcer of foot due to diabetes (Chronic) Lumbar disc disease with radiculopathy (Chronic) Surgical History: - - The patient has a history of coronary artery stent placement. She has undergone open reduction and internal fixation of a left tibia fracture. She underwent right meniscus repair in the past. She is a Ab0. Allergies/Adverse Reactions: Allergies bee venom protein (honey bee) Adverse Reaction (Verified 03/19/19 09:02) Swelling Home Medications: Ambulatory Orders Medication Instructions Recorded Aspirin E.C. [Ecotrin] 81 mg PO DAILY@0800 09/03/13 Hydrocodone/Acetaminophen [Vicodin 1 - 2 tablet PO Q6H PRN PRN 09/03/13 5-300 mg Tablet] Lisinopril 10 mg PO DAILY 09/03/13 Metformin [Metformin HCl] 1,000 mg PO BID 09/03/13 Metoprolol Tartrate 50 mg PO DAILY 09/03/13 Dulaglutide [Trulicity] 0.75 mg SQ 01/02/18 Fluticasone/Vilanterol [Breo 1 each IH 01/02/18 Ellipta 200-25 Mcg INH] Insulin Glargine,Hum.rec.anlog 56 unit BID 01/02/18 [Lantus] Sitagliptin Phosphate [Januvia] 25 mg PO DAILY 01/02/18 Tiotropium [place] [Spiriva] 18 mcg IH 01/02/18 - Family History Paternal - - The patient's father at the age of 78 with history of chronic obstructive pulmonary disease. The patient's mother at the age of 84 with history of chronic obstructive pulmonary disease. Smoking Status: Former smoker Tobacco Use: Non-smoker Review of Systems Constitutional: Denies: Chills, Fever, Weight Change Eyes: Denies: Pain, Vision Change HEENT: Denies: Difficulty Hearing, Difficulty Swallowing, Sinus Congestion Cardiovascular: Denies: Chest Pain, Palpitations Respiratory: Denies: Cough, Shortness of Breath Gastrointestinal: Denies: Diarrhea, Nausea, Vomiting Genitourinary: Denies: Dysuria, Hematuria Endocrine: Denies: Heat/ Cold Intolerance, Polydipsia, Polyuria Hematologic/ Lymphatic: Denies: Easy Bruising, Easy Bleeding - Physical Exam Vital Signs Temp Pulse Resp BP 96.6 F L 106 H 18 167/86 H 03/26/19 08:20 04/02/19 08:15 04/02/19 08:15 04/02/19 08:15 General: Alert, Oriented x3, Cooperative, No apparent distress, Well developed, Well nourished, - - The patient is morbidly obese HEENT: Atraumatic, PERRLA, EOMI, Normocephalic Oral: Moist Mucosa Neck: No JVD Lungs: Normal air movement Abdomen: Non-Distended Extremities: No clubbing, No cyanosis, No edema, No Calf Tenderness, - - There is no significant swelling or edema in the patient's right lower extremity. The 2 ulcerations on the right lateral calf persists. There appears to be a moderate amount of bioburden and nonviable tissue present. The amount of erythema has markedly diminished. Dimensions are documented elsewhere. There is also an ulceration overlying a bunion on the right medial foot. There is a large amount of callus surrounding the small ulceration at this site. There is no sign of infection or cellulitis. Dimensions are documented elsewhere. Wound Measurements and Assessment WC - Nurse 1 - General Ulcer Measurement Start: 03/26/19 08:20 Freq: Status: Active Protocol: Activity Type Activity Date Activity User E-Sign Co-Sign Detail Recorded Client Recorded Date Recorded By Document 04/02/19 08:15 [id number] 04/02/19 08:18 JOSE 04/02/19 08:15 Wound Center Nurse 1 [Ulcer Assessment] #4 R Lat Met Head -Combined with other wound No -Current Size (cm) - Length 0.3 -Current Size (cm) - Width 0.2 -Current Size (cm) - Depth 0.2 -Total Square Cm 0.06 -Photo Taken No -Epithelialization Small 1-33% -Tunneling No -Undermining/Tunneling No -Circular Undermining No -Wound Margin Flat & Intact -Granulation Amt Large (67-100%) -Granulation Quality Pale -Slough/Fibrin Yes -Necrosis Amt Small (1-33%) -Necrotic Tissue Type Adherent Slough -Structure Exposed N/A -Texture (Ketty-wound Skin Appearance) Assessed,Callus -Moisture (Ketty-wound Skin Appearance Assessed,Dry/ ) Scaly -Color (Ketty-wound Skin Appearance) Assessed -Temperature (Ketty-wound Skin No Abnormality Appearance) (Pt Warm) -Tenderness on Palpation (Ketty-wound No Skin Appearance) -Ulcer Cleansing Rinsed/ Irrigated with Saline -Foul Odor after Cleansing No -Anesthetic Used 4% Lidocaine Solution #3 LATERAL RLE -Combined with other wound No -Current Size (cm) - Length 0.5 -Current Size (cm) - Width 0.5 -Current Size (cm) - Depth 0.2 -Total Square Cm 0.25 -Photo Taken No -Epithelialization Small 1-33% -Tunneling No -Undermining/Tunneling No -Circular Undermining No -Wound Margin Flat & Intact -Granulation Amt Medium (34-66%) -Granulation Quality Red -Slough/Fibrin Yes -Necrosis Amt Medium (34-66%) -Necrotic Tissue Type Adherent Slough -Structure Exposed N/A -Texture (Ketty-wound Skin Appearance) Assessed, Localized Edema -Moisture (Ketty-wound Skin Appearance Assessed,Dry/ ) Scaly -Color (Ketty-wound Skin Appearance) Assessed -Temperature (Ketty-wound Skin No Abnormality Appearance) (Pt Warm) -Tenderness on Palpation (Ketty-wound No Skin Appearance) -Ulcer Cleansing Rinsed/ Irrigated with Saline -Foul Odor after Cleansing No -Anesthetic Used 4% Lidocaine Solution #2 R Vaz -Combined with other wound No -Current Size (cm) - Length 2.2 -Current Size (cm) - Width 1.6 -Current Size (cm) - Depth 0.3 -Total Square Cm 3.52 -Photo Taken No -Epithelialization Small 1-33% -Tunneling No -Undermining/Tunneling No -Circular Undermining No -Exudate Amt Medium -Exudate Type Serosanguineous -Wound Margin Flat & Intact -Granulation Amt Large (67-100%) -Granulation Quality Red -Slough/Fibrin Yes -Necrosis Amt Medium (34-66%) -Necrotic Tissue Type Adherent Slough -Structure Exposed N/A -Texture (Ketty-wound Skin Appearance) Assessed -Moisture (Ketty-wound Skin Appearance Assessed,Dry/ ) Scaly -Color (Ketty-wound Skin Appearance) Assessed -Temperature (Ketty-wound Skin No Abnormality Appearance) (Pt Warm) -Tenderness on Palpation (Ketty-wound No Skin Appearance) -Ulcer Cleansing Rinsed/ Irrigated with Saline -Foul Odor after Cleansing No -Anesthetic Used 4% Lidocaine Solution [Edema Assessment] -Lower Limb Edema Present Yes -Right Calf (cm) 41.0 -Right Ankle (cm) 23.5 WC - Nurse 2 - General Ulcer CM Notes Start: 03/26/19 08:20 Freq: Status: Active Protocol: Activity Type Activity Date Activity User E-Sign Co-Sign Detail Recorded Client Recorded Date Recorded By Document 04/02/19 09:09 DV [id number] 04/02/19 09:16 DV 04/02/19 09:09 Wound Center Nurse 2 [Procedure/Treatment] #4 R Lat Met Head -Time 09:15 -Correct Patient Yes -Correct Side, Site, Position Yes -Correct Procedure Yes -Procedure Performed Yes -Type of Procedure Debridement -Clinical Debridement Subcutaneous -Post Debridement Size (cm) - Length 0.5 -Post Debridement Size (cm) - Width 0.4 -Post Debridement Size (cm) - Depth 0.2 -Total Square Cm 0.20 -Wound/Ulcer Outcome Not Healed -Ulcer Cleansing Rinsed/ Irrigated with Saline -Foul Odor after Cleansing No -Bioengineered Tissue No -Bleeding Controlled with Pressure -Offloading No -Treatment Response Procedure Tolerated Well #3 LATERAL RLE -Time 09:10 -Correct Patient Yes -Correct Side, Site, Position Yes -Correct Procedure Yes -Procedure Performed Yes -Type of Procedure Debridement -Clinical Debridement Subcutaneous -Post Debridement Size (cm) - Length 0.6 -Post Debridement Size (cm) - Width 0.6 -Post Debridement Size (cm) - Depth 0.2 -Total Square Cm 0.36 -Wound/Ulcer Outcome Not Healed -Ulcer Cleansing Rinsed/ Irrigated with Saline -Foul Odor after Cleansing No -Bioengineered Tissue No -Bleeding Controlled with Pressure -Offloading No -Treatment Response Procedure Tolerated Well #2 R Vaz -Time 09:13 -Correct Patient Yes -Correct Side, Site, Position Yes -Correct Procedure Yes -Procedure Performed Yes -Type of Procedure Debridement -Clinical Debridement Subcutaneous -Post Debridement Size (cm) - Length 2.5 -Post Debridement Size (cm) - Width 1.8 -Post Debridement Size (cm) - Depth 0.3 -Total Square Cm 4.50 -Wound/Ulcer Outcome Not Healed -Ulcer Cleansing Rinsed/ Irrigated with Saline -Foul Odor after Cleansing No -Bioengineered Tissue No -Bleeding Controlled with Pressure -Offloading No -Treatment Response Procedure Tolerated Well [See Physician Procedure note for Specifics] Pain Scale: 0-10 Numeric [Pain] -Is Patient Pain Free? Yes Musculoskeletal: No Muscle Wasting Neurological: Cranial nerves II-XII grossly intact, Neuro grossly intact Psych/Mental Status: Normal Affect, Appropriate, Alert and oriented to time, place, person, mood and affect Debridement Note Post-Debridement Measurements/Treatment WC - Nurse 2 - General Ulcer CM Notes Start: 03/26/19 08:20 Freq: Status: Active Protocol: Activity Type Activity Date Activity User E-Sign Co-Sign Detail Recorded Client Recorded Date Recorded By Document 03/26/19 08:50 DV [id number] 03/26/19 08:57 DV Document 04/02/19 09:09 DV [id number] 04/02/19 09:16 DV 03/26/19 04/02/19 08:50 09:09 Wound Center Nurse 2 #4 R Lat Met Head -Time 08:51 09:15 -Correct Patient Yes Yes -Correct Side, Site, Position Yes Yes -Correct Procedure Yes Yes -Procedure Performed Yes Yes -Type of Procedure Debridement Debridement -Clinical Debridement Subcutaneous Subcutaneous -Post Debridement Size (cm) - Length 0.7 0.5 -Post Debridement Size (cm) - Width 0.5 0.4 -Post Debridement Size (cm) - Depth 0.3 0.2 -Total Square Cm 0.35 0.20 -Wound/Ulcer Outcome Not Healed Not Healed -Ulcer Cleansing Rinsed/ Irrigated with Saline -Foul Odor after Cleansing No -Bioengineered Tissue No -Bleeding Controlled with Pressure Pressure -Offloading No No -Type of Offloading Surgical Shoe -Treatment Response Procedure Procedure Tolerated Well Tolerated Well #3 LATERAL RLE -Time 08:53 09:10 -Correct Patient Yes Yes -Correct Side, Site, Position Yes Yes -Correct Procedure Yes Yes -Procedure Performed Yes Yes -Type of Procedure Debridement Debridement -Clinical Debridement Subcutaneous Subcutaneous -Post Debridement Size (cm) - Length 0.6 0.6 -Post Debridement Size (cm) - Width 0.5 0.6 -Post Debridement Size (cm) - Depth 0.2 0.2 -Total Square Cm 0.30 0.36 -Wound/Ulcer Outcome Not Healed Not Healed -Ulcer Cleansing Rinsed/ Rinsed/ Irrigated with Irrigated with Saline Saline -Foul Odor after Cleansing No No -Bioengineered Tissue No No -Bleeding Controlled with Pressure Pressure -Offloading No No -Type of Offloading Surgical Shoe -Treatment Response Procedure Procedure Tolerated Well Tolerated Well #2 R Vaz -Time 08:55 09:13 -Correct Patient Yes Yes -Correct Side, Site, Position Yes Yes -Correct Procedure Yes Yes -Procedure Performed Yes Yes -Type of Procedure Debridement Debridement -Clinical Debridement Subcutaneous Subcutaneous -Post Debridement Size (cm) - Length 2.3 2.5 -Post Debridement Size (cm) - Width 1.6 1.8 -Post Debridement Size (cm) - Depth 0.3 0.3 -Total Square Cm 3.68 4.50 -Wound/Ulcer Outcome Not Healed Not Healed -Ulcer Cleansing Rinsed/ Rinsed/ Irrigated with Irrigated with Saline Saline -Foul Odor after Cleansing No No -Bioengineered Tissue No No -Bleeding Controlled with Pressure Pressure -Offloading Yes No -Type of Offloading Surgical Shoe -Treatment Response Procedure Procedure Tolerated Well Tolerated Well Pain Scale: 0-10 Numeric Is Patient Pain Free? Yes Yes Laterality: Right - Lateral calf x2 Type of Debridement: Excisional debridement Anesthesia Used: 5% Lidocaine Gel Depth: Down to and including healthy tissue, in the subcutaneous layer Percentage of wound debrided: 100 Instrument Used: 5mm curette Tissue Removed: Bioburden and nonviable tissue Severity: Fat Layer Exposed Amount of bleeding with debridement: Mild Bleeding Controlled with: Compression and gauze Patient tolerated procedure well - Additional Wound Laterality: Right - Bunion, medial foot Type of Debridement: Excisional debridement Anesthesia Used: 5% Lidocaine Gel Depth: Down to and including healthy tissue, in the subcutaneous layer Percentage of wound debrided: 100 Instrument Used: 5mm curette Tissue Removed: Bioburden, nonviable tissue, and surrounding callus Severity: Fat Layer Exposed Amount of bleeding with debridement: Mild Bleeding Controlled with: Compression and gauze Patient tolerated procedure: Patient tolerated procedure well Assessment/Plan Active Problems Traumatic open wound of lower leg (Chronic) Leg swelling (Chronic) Edema of leg (Chronic) Diabetes mellitus (Chronic) Morbid obesity with BMI of 45.0-49.9, adult (Chronic) Diabetic foot wound, [place] Grade 1 (Chronic) Ulcer of foot due to diabetes (Chronic) Assessment: This is a 58-year-old female who presented with traumatic wounds on the right lower extremity, of several months duration. Despite the use of collagen hydrogel, there has been no significant improvement. The patient is known to be a diabetic. Additionally, she has developed callus and an ulceration overlying a bunion on the right foot. This appears to be pressure related due to poor fitting shoes. A noninvasive lower extremity arterial study performed about 1 year ago was normal, revealing triphasic waveforms at ankle level bilaterally, normal resting ankle?brachial indices bilaterally, and normal digital-brachial indices bilaterally. Recent laboratory studies have been obtained, dated February 22, 2019, with results as follows: White blood count 6.2, hemoglobin 14.1, hematocrit 43.4, platelets 218,000, glucose 143, sodium 137, potassium 4.3, chloride 100, BUN 18, creatinine 0.80, calcium 9.5, total protein 6.6, albumin 3.6, hemoglobin A1c 8.3. Additionally, cultures were positive for Leclercia adecoxylata, Staphlococcus lugdunensis, and Corynebacterium amycolatum. The patient has been started on Augmentin 875 mg p.o. twice daily for a total of 10 days, which will be concluded within the next 24 hours. Plan: Patient has been counseled as to the appropriate foot care necessary in diabetic patients. To initiate the use of a postop shoe for offloading relative to the ulceration of the right foot. Patient has been advised to optimize her glycemic control. Adequate nutrition has been advised. We are to continue the use of collagen hydrogel topically relative to the ulceration of the right foot. We are to continue the use of collagenase Santyl topically to each of the 2 traumatic wounds on the right lateral calf. The patient is to return in 1 week for reassessment. The patient is to continue wearing her graduated compression stockings of 20 to 30 mmHg compression on a daily basis. The patient is to continue elevating her legs as much as possible. She is to avoid prolonged idle sitting. The patient has been encouraged to assure adequate nutrition. Optimizing glycemic control has also been advised. Weight loss has also been recommended. We are to consider the use of a skin graft substitute such as Grafix PL in the near future, once the wound infection appears to have resolved. Influenza vaccine was not administered today. The patient is not a smoker. Patient weighs 265 pounds. She stands 5 feet 4 inches tall. Her BMI is 45.5, which places her in a class III category. Weight loss has been recommended, and collaboration with the patient's primary care physician has been recommended.
[2019-04-22 15:57] VITALS: BP 152/75; PULSE 105; RESP 18; TEMP 36.7; BMI 44.9
--- NOTE | 2019-04-22 16:34 | PCM.WC.HP ---
(1) Traumatic open wound of lower leg Status: Chronic Current Visit: Yes Qualifiers: Encounter type: subsequent encounter Laterality: right Qualified Code(s): S81.801D - Unspecified open wound, right lower leg, subsequent encounter Code(s): S81.809A - Unspecified open wound, unspecified lower leg, initial encounter (2) Leg swelling Status: Chronic Current Visit: Yes Code(s): M79.89 - Other specified soft tissue disorders (3) Edema of leg Status: Chronic Current Visit: Yes Code(s): R60.0 - Localized edema (4) Diabetes mellitus Status: Chronic Current Visit: Yes Qualifiers: Diabetes mellitus type: type 2 Code(s): E11.9 - Type 2 diabetes mellitus without complications (5) Morbid obesity with BMI of 45.0-49.9, adult Status: Chronic Current Visit: Yes Code(s): E66.01 - Morbid (severe) obesity due to excess calories; Z68.42 - Body mass index (BMI) 45.0-49.9, adult (6) COPD (chronic obstructive pulmonary disease) Status: Chronic Current Visit: No Code(s): J44.9 - Chronic obstructive pulmonary disease, unspecified (7) Coronary artery arteriosclerosis Status: Chronic Current Visit: No Code(s): I25.10 - Atherosclerotic heart disease of [place] coronary artery without angina pectoris (8) Diabetic foot wound, Hubbard Grade 1 Status: Chronic Current Visit: Yes (9) Ulcer of foot due to diabetes Status: Chronic Current Visit: Yes Qualifiers: Diabetic foot ulcer location: midfoot Diabetes mellitus type: type 2 Laterality: right Non-pressure ulcer stage: with fat layer exposed Qualified Code(s): E11.621 - Type 2 diabetes mellitus with foot ulcer; L97.412 - Non-pressure chronic ulcer of right heel and midfoot with fat layer exposed Code(s): E11.621 - Type 2 diabetes mellitus with foot ulcer; L97.509 - Non-pressure chronic ulcer of other part of unspecified foot with unspecified severity (10) Lumbar disc disease with radiculopathy Status: Chronic Current Visit: No Code(s): M51.16 - Intervertebral disc disorders with radiculopathy, lumbar region History of Present Illness Date of Service: 04/22/19 Chief Complaint: Traumatic open wound of the right lower extremity, Diabetic right foot wound - Hubbard Grade 1 History of Wound: This is a 58-year-old diabetic female who has been previously treated in our facility for a traumatic wound on the left lower extremity. She presented this time with wounds in her right lower extremity. There are 2 wounds involving the right calf, which are traumatic in origin. They are located on the right anterior tibial surface and on the right lateral calf. These occurred due to impact with a car door in December 2018. Patient has been using collagen hydrogel topically. She also has a more recent ulceration on the right foot, located overlying a bunion, which has been present for only several weeks. According the patient, this has occurred as a result of a new pair of sneakers, which she obtained at a retail establishment. The patient is known to be diabetic, and her blood sugars appear to be reasonably well controlled, based upon the patient's account. The previous wound in the left lower extremity has remained healed. The patient has continued to implement conservative treatment measures previously recommended, including leg elevation, avoidance of idle standing and sitting, active lifestyle, attempts at weight loss, and the use of graduated compression stockings on a daily basis, of 20 to 30 mmHg compression. Past Medical History Past Medical History: Chronic Problems Traumatic open wound of lower leg (Chronic) Leg swelling (Chronic) Edema of leg (Chronic) Diabetes mellitus (Chronic) Morbid obesity with BMI of 45.0-49.9, adult (Chronic) COPD (chronic obstructive pulmonary disease) (Chronic) Coronary artery arteriosclerosis (Chronic) Diabetic foot wound, Hubbard Grade 1 (Chronic) Ulcer of foot due to diabetes (Chronic) Lumbar disc disease with radiculopathy (Chronic) Surgical History: - - The patient has a history of coronary artery stent placement. She has undergone open reduction and internal fixation of a left tibia fracture. She underwent right meniscus repair in the past. She is a Ab0. Allergies/Adverse Reactions: Allergies bee venom protein (honey bee) Adverse Reaction (Verified 03/19/19 09:02) Swelling Home Medications: Ambulatory Orders Medication Instructions Recorded Aspirin E.C. [Ecotrin] 81 mg PO DAILY@0800 09/03/13 Hydrocodone/Acetaminophen [Vicodin 1 - 2 tablet PO Q6H PRN PRN 09/03/13 5-300 mg Tablet] Lisinopril 10 mg PO DAILY 09/03/13 Metformin [Metformin HCl] 1,000 mg PO BID 09/03/13 Metoprolol Tartrate 50 mg PO DAILY 09/03/13 Dulaglutide [Trulicity] 0.75 mg SQ 01/02/18 Fluticasone/Vilanterol [Breo 1 each IH 01/02/18 Ellipta 200-25 Mcg INH] Insulin Glargine,Hum.rec.anlog 56 unit BID 01/02/18 [Lantus] Sitagliptin Phosphate [Januvia] 25 mg PO DAILY 01/02/18 Tiotropium [employer] [Spiriva] 18 mcg IH 01/02/18 - Family History Paternal - - The patient's father at the age of 78 with history of chronic obstructive pulmonary disease. The patient's mother at the age of 84 with history of chronic obstructive pulmonary disease. Smoking Status: Former smoker Tobacco Use: Non-smoker Review of Systems Constitutional: Denies: Chills, Fever, Weight Change Eyes: Denies: Pain, Vision Change HEENT: Denies: Difficulty Hearing, Difficulty Swallowing, Sinus Congestion Cardiovascular: Denies: Chest Pain, Palpitations Respiratory: Denies: Cough, Shortness of Breath Gastrointestinal: Denies: Diarrhea, Nausea, Vomiting Genitourinary: Denies: Dysuria, Hematuria Endocrine: Denies: Heat/ Cold Intolerance, Polydipsia, Polyuria Hematologic/ Lymphatic: Denies: Easy Bruising, Easy Bleeding - Physical Exam Vital Signs Temp Pulse Resp BP 98.0 F 105 H 18 152/75 H 04/22/19 15:57 04/22/19 15:57 04/22/19 15:57 04/22/19 15:57 General: Alert, Oriented x3, Cooperative, No apparent distress, Well developed, Well nourished HEENT: Atraumatic, PERRLA, EOMI, Normocephalic Oral: Moist Mucosa Neck: No JVD Lungs: Normal air movement Abdomen: Non-Distended, Obese Extremities: No clubbing, No cyanosis, No Calf Tenderness, - - Slight swelling and edema is noted in the right lower extremity. The 2 wounds on the right lateral calf persist. The diabetic foot ulceration overlying the right bunion persists as well. The 2 adjacent calf wounds demonstrate a moderate amount of bioburden. There is a small amount of nonviable tissue present. Dimensions are documented elsewhere. There is no sign of infection or cellulitis. The dimensions of the right foot ulceration are also documented elsewhere. A large amount of callus surrounding this ulceration persists. There is no sign of infection or cellulitis. Skin: No rashes Wound Measurements and Assessment WC - Nurse 1 - General Ulcer Measurement Start: 03/26/19 08:20 Freq: Status: Active Protocol: Activity Type Activity Date Activity User E-Sign Co-Sign Detail Recorded Client Recorded Date Recorded By Document 04/22/19 15:57 MW [id number] 04/22/19 16:08 MW 04/22/19 15:57 Wound Center Nurse 1 [Ulcer Assessment] #4 R Lat Met Head -Combined with other wound No -Current Size (cm) - Length 0.3 -Current Size (cm) - Width 0.4 -Current Size (cm) - Depth 0.2 -Total Square Cm 0.12 -Photo Taken No -Epithelialization None Present -Tunneling No -Undermining/Tunneling No -Circular Undermining No -Exudate Amt None Present -Wound Margin Flat & Intact -Granulation Amt None Present (0 %) -Granulation Quality N/A -Slough/Fibrin Yes -Necrosis Amt Large (67-100%) -Necrotic Tissue Type Adherent Slough -Structure Exposed N/A -Texture (Ketty-wound Skin Appearance) Assessed,Callus -Moisture (Ketty-wound Skin Appearance No Abnormality, ) Assessed -Color (Ketty-wound Skin Appearance) No Abnormality, Assessed -Temperature (Ketty-wound Skin No Abnormality Appearance) (Pt Warm) -Ulcer Cleansing Rinsed/ Irrigated with Saline -Foul Odor after Cleansing No -Anesthetic Used 5% Lidocaine Gel #3 LATERAL RLE -Combined with other wound No -Current Size (cm) - Length 0.5 -Current Size (cm) - Width 0.6 -Current Size (cm) - Depth 0.2 -Total Square Cm 0.30 -Photo Taken No -Epithelialization None Present -Tunneling No -Undermining/Tunneling No -Circular Undermining No -Exudate Amt None Present -Wound Margin Flat & Intact -Granulation Amt Medium (34-66%) -Granulation Quality Red -Slough/Fibrin Yes -Necrosis Amt Medium (34-66%) -Necrotic Tissue Type Adherent Slough -Structure Exposed N/A -Texture (Ketty-wound Skin Appearance) Assessed, Localized Edema ,Scarring -Moisture (Ketty-wound Skin Appearance No Abnormality, ) Assessed -Color (Ketty-wound Skin Appearance) No Abnormality, Assessed -Temperature (Ketty-wound Skin No Abnormality Appearance) (Pt Warm) -Tenderness on Palpation (Ketty-wound No Skin Appearance) -Ulcer Cleansing Rinsed/ Irrigated with Saline -Foul Odor after Cleansing No -Anesthetic Used 5% Lidocaine Gel #2 R Vaz -Combined with other wound No -Current Size (cm) - Length 2.3 -Current Size (cm) - Width 2.0 -Current Size (cm) - Depth 0.2 -Total Square Cm 4.60 -Photo Taken No -Epithelialization Small 1-33% -Tunneling No -Undermining/Tunneling No -Circular Undermining No -Exudate Amt None Present -Wound Margin Flat & Intact -Granulation Amt Medium (34-66%) -Granulation Quality Red -Slough/Fibrin Yes -Necrosis Amt Medium (34-66%) -Necrotic Tissue Type Adherent Slough -Structure Exposed N/A -Texture (Ketty-wound Skin Appearance) Assessed, Localized Edema ,Scarring -Moisture (Ketty-wound Skin Appearance No Abnormality, ) Assessed -Color (Ketty-wound Skin Appearance) No Abnormality, Assessed -Temperature (Ketty-wound Skin No Abnormality Appearance) (Pt Warm) -Tenderness on Palpation (Ketty-wound Yes Skin Appearance) -Ulcer Cleansing Rinsed/ Irrigated with Saline -Foul Odor after Cleansing No -Anesthetic Used 5% Lidocaine Gel [Edema Assessment] -Lower Limb Edema Present Yes -Right Calf (cm) 42.0 -Right Ankle (cm) 24.0 WC - Nurse 2 - General Ulcer CM Notes Start: 03/26/19 08:20 Freq: Status: Active Protocol: Activity Type Activity Date Activity User E-Sign Co-Sign Detail Recorded Client Recorded Date Recorded By Document 04/22/19 16:13 MW [id number] 04/22/19 16:31 MW 04/22/19 16:13 Wound Center Nurse 2 [Procedure/Treatment] #4 R Lat Met Head -Time 16:14 -Correct Patient Yes -Correct Side, Site, Position Yes -Correct Procedure Yes -Procedure Performed Yes -Type of Procedure Debridement -Clinical Debridement Subcutaneous -Post Debridement Size (cm) - Length 1.2 -Post Debridement Size (cm) - Width 0.4 -Post Debridement Size (cm) - Depth 0.2 -Total Square Cm 0.48 -Wound/Ulcer Outcome Not Healed -Ulcer Cleansing Rinsed/ Irrigated with Saline -Foul Odor after Cleansing No -Bioengineered Tissue No -Bleeding Controlled with Pressure -Offloading No -Treatment Response Procedure Tolerated Well #3 LATERAL RLE -Time 16:14 -Correct Patient Yes -Correct Side, Site, Position Yes -Correct Procedure Yes -Procedure Performed Yes -Type of Procedure Debridement -Clinical Debridement Subcutaneous -Post Debridement Size (cm) - Length 0.6 -Post Debridement Size (cm) - Width 0.6 -Post Debridement Size (cm) - Depth 0.2 -Total Square Cm 0.36 -Wound/Ulcer Outcome Not Healed -Ulcer Cleansing Rinsed/ Irrigated with Saline -Foul Odor after Cleansing No -Bioengineered Tissue No -Bleeding Controlled with Pressure -Offloading No -Treatment Response Procedure Tolerated Well #2 R Vaz -Time 16:15 -Correct Patient Yes -Correct Side, Site, Position Yes -Correct Procedure Yes -Procedure Performed Yes -Type of Procedure Debridement -Clinical Debridement Subcutaneous -Post Debridement Size (cm) - Length 2.3 -Post Debridement Size (cm) - Width 2.2 -Post Debridement Size (cm) - Depth 0.2 -Total Square Cm 5.06 -Wound/Ulcer Outcome Not Healed -Ulcer Cleansing Rinsed/ Irrigated with Saline -Foul Odor after Cleansing No -Bioengineered Tissue No -Bleeding Controlled with Pressure -Offloading No -Treatment Response Procedure Tolerated Well [See Physician Procedure note for Specifics] Pain Scale: 0-10 Numeric [Pain] -Is Patient Pain Free? Yes Musculoskeletal: No Muscle Wasting Neurological: Cranial nerves II-XII grossly intact, Neuro grossly intact Psych/Mental Status: Normal Affect, Appropriate, Alert and oriented to time, place, person, mood and affect Debridement Note Post-Debridement Measurements/Treatment WC - Nurse 2 - General Ulcer CM Notes Start: 03/26/19 08:20 Freq: Status: Active Protocol: Activity Type Activity Date Activity User E-Sign Co-Sign Detail Recorded Client Recorded Date Recorded By Document 03/26/19 08:50 DV [id number] 03/26/19 08:57 DV Document 04/02/19 09:09 DV [id number] 04/02/19 09:16 DV Document 04/22/19 16:13 MW [id number] 04/22/19 16:31 MW 03/26/19 04/02/1904/22/19 08:50 09:09 16:13 Wound Center Nurse 2 #4 R Lat Met Head -Time 08:51 09:15 16:14 -Correct Patient Yes Yes Yes -Correct Side, Site, Position Yes Yes Yes -Correct Procedure Yes Yes Yes -Procedure Performed Yes Yes Yes -Type of Procedure Debridement Debridement Debridement -Clinical Debridement Subcutaneous Subcutaneous Subcutaneous -Post Debridement Size (cm) - Length 0.7 0.5 1.2 -Post Debridement Size (cm) - Width 0.5 0.4 0.4 -Post Debridement Size (cm) - Depth 0.3 0.2 0.2 -Total Square Cm 0.35 0.20 0.48 -Wound/Ulcer Outcome Not Healed Not Healed Not Healed -Ulcer Cleansing Rinsed/ Rinsed/ Irrigated with Irrigated with Saline Saline -Foul Odor after Cleansing No No -Bioengineered Tissue No No -Bleeding Controlled with Pressure Pressure Pressure -Offloading No No No -Type of Offloading Surgical Shoe -Treatment Response Procedure Procedure Procedure Tolerated Well Tolerated Well Tolerated Well #3 LATERAL RLE -Time 08:53 09:10 16:14 -Correct Patient Yes Yes Yes -Correct Side, Site, Position Yes Yes Yes -Correct Procedure Yes Yes Yes -Procedure Performed Yes Yes Yes -Type of Procedure Debridement Debridement Debridement -Clinical Debridement Subcutaneous Subcutaneous Subcutaneous -Post Debridement Size (cm) - Length 0.6 0.6 0.6 -Post Debridement Size (cm) - Width 0.5 0.6 0.6 -Post Debridement Size (cm) - Depth 0.2 0.2 0.2 -Total Square Cm 0.30 0.36 0.36 -Wound/Ulcer Outcome Not Healed Not Healed Not Healed -Ulcer Cleansing Rinsed/ Rinsed/ Rinsed/ Irrigated with Irrigated with Irrigated with Saline Saline Saline -Foul Odor after Cleansing No No No -Bioengineered Tissue No No No -Bleeding Controlled with Pressure Pressure Pressure -Offloading No No No -Type of Offloading Surgical Shoe -Treatment Response Procedure Procedure Procedure Tolerated Well Tolerated Well Tolerated Well #2 R Vaz -Time 08:55 09:13 16:15 -Correct Patient Yes Yes Yes -Correct Side, Site, Position Yes Yes Yes -Correct Procedure Yes Yes Yes -Procedure Performed Yes Yes Yes -Type of Procedure Debridement Debridement Debridement -Clinical Debridement Subcutaneous Subcutaneous Subcutaneous -Post Debridement Size (cm) - Length 2.3 2.5 2.3 -Post Debridement Size (cm) - Width 1.6 1.8 2.2 -Post Debridement Size (cm) - Depth 0.3 0.3 0.2 -Total Square Cm 3.68 4.50 5.06 -Wound/Ulcer Outcome Not Healed Not Healed Not Healed -Ulcer Cleansing Rinsed/ Rinsed/ Rinsed/ Irrigated with Irrigated with Irrigated with Saline Saline Saline -Foul Odor after Cleansing No No No -Bioengineered Tissue No No No -Bleeding Controlled with Pressure Pressure Pressure -Offloading Yes No No -Type of Offloading Surgical Shoe -Treatment Response Procedure Procedure Procedure Tolerated Well Tolerated Well Tolerated Well Pain Scale: 0-10 Numeric Is Patient Pain Free? Yes Yes Yes Laterality: Right - Lateral calf wounds Type of Debridement: Excisional debridement Anesthesia Used: 5% Lidocaine Gel Depth: Down to and including healthy tissue, in the subcutaneous layer Percentage of wound debrided: 100 Instrument Used: 5mm curette Tissue Removed: Bioburden and nonviable tissue Severity: Fat Layer Exposed Amount of bleeding with debridement: Mild Bleeding Controlled with: Compression and gauze Patient tolerated procedure well - Additional Wound Laterality: Right - Bunion ulceration Type of Debridement: Excisional debridement Anesthesia Used: 5% Lidocaine Gel Depth: Down to and including healthy tissue, in the subcutaneous layer Percentage of wound debrided: 100 Instrument Used: 5mm curette Tissue Removed: Bioburden and large amount of surrounding callus tissue Severity: Fat Layer Exposed Amount of bleeding with debridement: Mild Bleeding Controlled with: Compression and gauze Patient tolerated procedure: Patient tolerated procedure well Assessment/Plan Active Problems Traumatic open wound of lower leg (Chronic) Leg swelling (Chronic) Edema of leg (Chronic) Diabetes mellitus (Chronic) Morbid obesity with BMI of 45.0-49.9, adult (Chronic) Diabetic foot wound, [place] Grade 1 (Chronic) Ulcer of foot due to diabetes (Chronic) Assessment: This is a 58-year-old female who presented with traumatic wounds on the right lower extremity, of several months duration. Despite the use of collagen hydrogel, there has been no significant improvement. The patient is known to be a diabetic. Additionally, she has developed callus and an ulceration overlying a bunion on the right foot. This appears to be pressure related due to poor fitting shoes. A noninvasive lower extremity arterial study performed about 1 year ago was normal, revealing triphasic waveforms at ankle level bilaterally, normal resting ankle?brachial indices bilaterally, and normal digital-brachial indices bilaterally. Recent laboratory studies have been obtained, dated February 22, 2019, with results as follows: White blood count 6.2, hemoglobin 14.1, hematocrit 43.4, platelets 218,000, glucose 143, sodium 137, potassium 4.3, chloride 100, BUN 18, creatinine 0.80, calcium 9.5, total protein 6.6, albumin 3.6, hemoglobin A1c 8.3. Additionally, cultures were positive for Leclercia adecoxylata, Staphlococcus lugdunensis, and Corynebacterium amycolatum. The patient has been started on Augmentin 875 mg p.o. twice daily for a total of 10 days, which has been completed. Plan: Patient has been counseled as to the appropriate foot care necessary in diabetic patients. We are too continue the use of a postop shoe for offloading relative to the ulceration of the right foot. Patient has been advised to optimize her glycemic control. Adequate nutrition has been advised. We are to continue the use of collagen hydrogel topically relative to the ulceration of the right foot. We are to continue the use of collagenase Santyl topically to each of the 2 adjacent traumatic wounds on the right lateral calf. The patient is to return in 1 week for reassessment. The patient is to continue wearing her graduated compression stockings of 20 to 30 mmHg compression on a daily basis. The patient is to continue elevating her legs as much as possible. She is to avoid prolonged idle sitting. The patient has been encouraged to assure adequate nutrition. Optimizing glycemic control has also been advised. Weight loss has also been recommended. We are to consider the use of a skin graft substitute such as Grafix PL in the near future. Preauthorization is awaited. Influenza vaccine was not administered today. The patient is not a smoker. Patient weighs 265 pounds. She stands 5 feet 4 inches tall. Her BMI is 45.5, which places her in a class III category. Weight loss has been recommended, and collaboration with the patient's primary care physician has been recommended.
== END 2019-04-23 23:59 ==
LOC: WC 16:00
PROVIDERS: Family Provider Nurse Practitioner Primary Care; PCP Nurse Practitioner Primary Care; Referring Provider Surgery; Visit Provider Surgery
DX: E11.621 Type 2 diabetes mellitus with foot ulcer (principal); L97.512 Non-pressure chronic ulcer of other part of right foot with fat layer exposed; J44.9 Chronic obstructive pulmonary disease, unspecified; E66.01 Morbid (severe) obesity due to excess calories; Z68.42 Body mass index [BMI] 45.0-49.9, adult; I25.10 Atherosclerotic heart disease of native coronary artery without angina pectoris; Z87.891 Personal history of nicotine dependence; Z79.4 Long term (current) use of insulin; Z79.899 Other long term (current) drug therapy; M21.611 Bunion of right foot; L97.212 Non-pressure chronic ulcer of right calf with fat layer exposed; L84 Corns and callosities; E11.622 Type 2 diabetes mellitus with other skin ulcer; M51.16 Intervertebral disc disorders with radiculopathy, lumbar region; S81.831A Puncture wound without foreign body, right lower leg, initial encounter; W22.8XXA Striking against or struck by other objects, initial encounter
CPT/HCPCS: 11042

== ENCOUNTER 2019-05-21 08:00 | Outpatient (RCR) | payer OTHER, SELFPAY ==
[2019-04-24 00:57] VITALS: BP 152/75; PULSE 105; RESP 18; TEMP 36.7
[2019-04-30 08:05] VITALS: BP 151/82; PULSE 102; RESP 18; TEMP 35.9; BMI 44.9
--- NOTE | 2019-04-30 08:34 | PCM.WC.HP ---
(1) Traumatic open wound of lower leg Status: Chronic Current Visit: Yes Qualifiers: Encounter type: subsequent encounter Laterality: right Qualified Code(s): S81.801D - Unspecified open wound, right lower leg, subsequent encounter Code(s): S81.809A - Unspecified open wound, unspecified lower leg, initial encounter (2) Leg swelling Status: Chronic Current Visit: Yes Code(s): M79.89 - Other specified soft tissue disorders (3) Edema of leg Status: Chronic Current Visit: Yes Code(s): R60.0 - Localized edema (4) Diabetes mellitus Status: Chronic Current Visit: No Qualifiers: Diabetes mellitus type: type 2 Code(s): E11.9 - Type 2 diabetes mellitus without complications (5) Morbid obesity with BMI of 45.0-49.9, adult Status: Chronic Current Visit: Yes Code(s): E66.01 - Morbid (severe) obesity due to excess calories; Z68.42 - Body mass index (BMI) 45.0-49.9, adult (6) COPD (chronic obstructive pulmonary disease) Status: Chronic Current Visit: No Code(s): J44.9 - Chronic obstructive pulmonary disease, unspecified (7) Coronary artery arteriosclerosis Status: Chronic Current Visit: No Code(s): I25.10 - Atherosclerotic heart disease of [place] coronary artery without angina pectoris (8) Diabetic foot wound, Hubbard Grade 1 Status: Chronic Current Visit: Yes (9) Ulcer of foot due to diabetes Status: Chronic Current Visit: Yes Qualifiers: Diabetic foot ulcer location: toe Diabetes mellitus type: type 2 Code(s): E11.621 - Type 2 diabetes mellitus with foot ulcer; L97.509 - Non-pressure chronic ulcer of other part of unspecified foot with unspecified severity (10) Lumbar disc disease with radiculopathy Status: Chronic Current Visit: No Code(s): M51.16 - Intervertebral disc disorders with radiculopathy, lumbar region History of Present Illness Date of Service: 04/30/19 Chief Complaint: Traumatic open wound of the right lower extremity, Diabetic right foot wound - Hubbard Grade 1 History of Wound: This is a 58-year-old diabetic female who has been previously treated in our facility for a traumatic wound on the left lower extremity. She presented this time with wounds in her right lower extremity. There are 2 wounds involving the right calf, which are traumatic in origin. They are located on the right anterior tibial surface and on the right lateral calf. These occurred due to impact with a car door in December 2018. Patient has been using collagen hydrogel topically. She also has a more recent ulceration on the right foot, located overlying a bunion, which has been present for only several weeks. According the patient, this has occurred as a result of a new pair of sneakers, which she obtained at a retail establishment. The patient is known to be diabetic, and her blood sugars appear to be reasonably well controlled, based upon the patient's account. The previous wound in the left lower extremity has remained healed. The patient has continued to implement conservative treatment measures previously recommended, including leg elevation, avoidance of idle standing and sitting, active lifestyle, attempts at weight loss, and the use of graduated compression stockings on a daily basis, of 20 to 30 mmHg compression. Past Medical History Past Medical History: Chronic Problems Traumatic open wound of lower leg (Chronic) Leg swelling (Chronic) Edema of leg (Chronic) Diabetes mellitus (Chronic) Morbid obesity with BMI of 45.0-49.9, adult (Chronic) COPD (chronic obstructive pulmonary disease) (Chronic) Coronary artery arteriosclerosis (Chronic) Diabetic foot wound, Hubbard Grade 1 (Chronic) Ulcer of foot due to diabetes (Chronic) Lumbar disc disease with radiculopathy (Chronic) Surgical History: - - The patient has a history of coronary artery stent placement. She has undergone open reduction and internal fixation of a left tibia fracture. She underwent right meniscus repair in the past. She is a Ab0. Allergies/Adverse Reactions: Allergies bee venom protein (honey bee) Adverse Reaction (Verified 03/19/19 09:02) Swelling Home Medications: Ambulatory Orders Medication Instructions Recorded Aspirin E.C. [Ecotrin] 81 mg PO DAILY@0800 09/03/13 Hydrocodone/Acetaminophen [Vicodin 1 - 2 tablet PO Q6H PRN PRN 09/03/13 5-300 mg Tablet] Lisinopril 10 mg PO DAILY 09/03/13 Metformin [Metformin HCl] 1,000 mg PO BID 09/03/13 Metoprolol Tartrate 50 mg PO DAILY 09/03/13 Dulaglutide [Trulicity] 0.75 mg SQ 01/02/18 Fluticasone/Vilanterol [Breo 1 each IH 01/02/18 Ellipta 200-25 Mcg INH] Insulin Glargine,Hum.rec.anlog 56 unit BID 01/02/18 [Lantus] Sitagliptin Phosphate [Januvia] 25 mg PO DAILY 01/02/18 Tiotropium [place] [Spiriva] 18 mcg IH 01/02/18 - Family History Paternal - - The patient's father at the age of 78 with history of chronic obstructive pulmonary disease. The patient's mother at the age of 84 with history of chronic obstructive pulmonary disease. Smoking Status: Former smoker Tobacco Use: Non-smoker Review of Systems Constitutional: Denies: Chills, Fever, Weight Change Eyes: Denies: Pain, Vision Change HEENT: Denies: Difficulty Hearing, Difficulty Swallowing, Sinus Congestion Cardiovascular: Denies: Chest Pain, Palpitations Respiratory: Denies: Cough, Shortness of Breath Gastrointestinal: Denies: Diarrhea, Nausea, Vomiting Genitourinary: Denies: Dysuria, Hematuria Endocrine: Denies: Heat/ Cold Intolerance, Polydipsia, Polyuria Hematologic/ Lymphatic: Denies: Easy Bruising, Easy Bleeding - Physical Exam Vital Signs Temp Pulse Resp BP 96.6 F L 102 H 18 151/82 H 04/30/19 08:05 04/30/19 08:05 04/30/19 08:05 04/30/19 08:05 General: Alert, Oriented x3, Cooperative, No apparent distress, Well developed, Well nourished, - - The patient is obese. HEENT: Atraumatic, PERRLA, EOMI, Normocephalic Oral: Moist Mucosa Neck: No JVD Lungs: Normal air movement Abdomen: Non-Distended, Obese Extremities: No clubbing, No cyanosis, No Calf Tenderness, - - Minimal swelling and edema are noted in the right lower extremity. The wounds on the right lateral calf persists. The smaller of the 2 wounds is pink and generally healthy in appearance. The larger of the 2 wounds, located inferior to the smaller wound, demonstrates a moderate amount of bioburden and nonviable tissue. There is no sign of infection or cellulitis. Dimensions are documented elsewhere. The ulceration overlying the right bunion persists as well, surrounded by a large amount of callus. There is no sign of infection or cellulitis. Dimensions are documented elsewhere. Skin: No rashes Wound Measurements and Assessment WC - Nurse 1 - General Ulcer Measurement Start: 04/30/19 08:05 Freq: Status: Active Protocol: Activity Type Activity Date Activity User E-Sign Co-Sign Detail Recorded Client Recorded Date Recorded By Document 04/30/19 08:05 MARCUS [id number] 04/30/19 08:14 MARCUS 04/30/19 08:05 Wound Center Nurse 1 [Ulcer Assessment] #4 R Lat Met Head -Current Size (cm) - Length 0.6 -Current Size (cm) - Width 0.3 -Current Size (cm) - Depth 0.1 -Total Square Cm 0.18 -Photo Taken No -Exudate Amt None Present -Wound Margin Thickened -Granulation Amt Small (1-33%) -Granulation Quality [place] -Necrosis Amt None Present (0 %) -Structure Exposed N/A -Texture (Ketty-wound Skin Appearance) Callus,Scarring -Moisture (Ketty-wound Skin Appearance Dry/Scaly ) -Color (Ketty-wound Skin Appearance) Hemosiderin Staining -Temperature (Ketty-wound Skin No Abnormality Appearance) (Pt Warm) -Tenderness on Palpation (Ketty-wound No Skin Appearance) -Ulcer Cleansing Rinsed/ Irrigated with Saline -Foul Odor after Cleansing No -Anesthetic Used 5% Lidocaine Gel #3 LATERAL RLE -Current Size (cm) - Length 1 -Current Size (cm) - Width 0.8 -Current Size (cm) - Depth 0.2 -Total Square Cm 0.8 -Photo Taken No -Exudate Amt Small -Exudate Type Serosanguineous -Wound Margin Distinct, Outline Attached -Granulation Amt Large (67-100%) -Granulation Quality [place] -Necrosis Amt Small (1-33%) -Necrotic Tissue Type Adherent Slough -Structure Exposed N/A -Texture (Ketty-wound Skin Appearance) Scarring -Moisture (Ketty-wound Skin Appearance Dry/Scaly ) -Color (Ketty-wound Skin Appearance) Hemosiderin Staining -Temperature (Ketty-wound Skin No Abnormality Appearance) (Pt Warm) -Tenderness on Palpation (Ketty-wound No Skin Appearance) -Ulcer Cleansing Rinsed/ Irrigated with Saline -Foul Odor after Cleansing No -Anesthetic Used 5% Lidocaine Gel #2 R Vaz -Current Size (cm) - Length 2.4 -Current Size (cm) - Width 1.8 -Current Size (cm) - Depth 0.2 -Total Square Cm 4.32 -Photo Taken No -Exudate Amt Small -Exudate Type Serosanguineous -Wound Margin Distinct, Outline Attached -Granulation Amt Medium (34-66%) -Granulation Quality Red -Necrosis Amt Medium (34-66%) -Necrotic Tissue Type Adherent Slough -Structure Exposed N/A -Texture (Ketty-wound Skin Appearance) Scarring -Moisture (Ketty-wound Skin Appearance Dry/Scaly ) -Color (Ketty-wound Skin Appearance) Hemosiderin Staining -Temperature (Ketty-wound Skin No Abnormality Appearance) (Pt Warm) -Tenderness on Palpation (Ketty-wound No Skin Appearance) -Ulcer Cleansing Rinsed/ Irrigated with Saline -Foul Odor after Cleansing No -Anesthetic Used 4% Lidocaine Solution [Edema Assessment] -Right Calf (cm) 42 -Right Ankle (cm) 24 WC - Nurse 2 - General Ulcer CM Notes Start: 04/30/19 08:05 Freq: Status: Active Protocol: Activity Type Activity Date Activity User E-Sign Co-Sign Detail Recorded Client Recorded Date Recorded By Document 04/30/19 08:30 DV [id number] 04/30/19 08:32 DV 04/30/19 08:30 Wound Center Nurse 2 [Procedure/Treatment] #4 R Lat Met Head -Post Debridement Size (cm) - Length 0.5 -Post Debridement Size (cm) - Width 0.3 -Post Debridement Size (cm) - Depth 0.2 -Total Square Cm 0.15 #3 LATERAL RLE -Post Debridement Size (cm) - Length 0.8 -Post Debridement Size (cm) - Width 0.7 -Post Debridement Size (cm) - Depth 0.3 -Total Square Cm 0.56 #2 R Vaz -Post Debridement Size (cm) - Length 2.3 -Post Debridement Size (cm) - Width 2.0 -Post Debridement Size (cm) - Depth 0.3 -Total Square Cm 4.60 [See Physician Procedure note for Specifics] Musculoskeletal: No Muscle Wasting Neurological: Cranial nerves II-XII grossly intact, Neuro grossly intact Psych/Mental Status: Normal Affect, Appropriate, Alert and oriented to time, place, person, mood and affect Debridement Note Post-Debridement Measurements/Treatment WC - Nurse 2 - General Ulcer CM Notes Start: 04/30/19 08:05 Freq: Status: Active Protocol: Activity Type Activity Date Activity User E-Sign Co-Sign Detail Recorded Client Recorded Date Recorded By Document 04/30/19 08:30 DV [id number] 04/30/19 08:32 DV 04/30/19 08:30 Wound Center Nurse 2 #4 R Lat Met Head -Post Debridement Size (cm) - Length 0.5 -Post Debridement Size (cm) - Width 0.3 -Post Debridement Size (cm) - Depth 0.2 -Total Square Cm 0.15 #3 LATERAL RLE -Post Debridement Size (cm) - Length 0.8 -Post Debridement Size (cm) - Width 0.7 -Post Debridement Size (cm) - Depth 0.3 -Total Square Cm 0.56 #2 R Vaz -Post Debridement Size (cm) - Length 2.3 -Post Debridement Size (cm) - Width 2.0 -Post Debridement Size (cm) - Depth 0.3 -Total Square Cm 4.60 Laterality: Right - Lateral calf Type of Debridement: Excisional debridement Anesthesia Used: 5% Lidocaine Gel Depth: Down to and including healthy tissue, in the subcutaneous layer Percentage of wound debrided: 100 Instrument Used: 5mm curette Tissue Removed: Bioburden and nonviable tissue Severity: Fat Layer Exposed Amount of bleeding with debridement: Mild Bleeding Controlled with: Compression and gauze Patient tolerated procedure well With respect to the ulceration of the right foot, overlying the bunion, there has been a large amount of callus tissue in this area, the result of poorly fitted footwear and long-term friction and pressure. We have been using topical collagen hydrogel dressings, in an effort to soften the callus tissue. At today's debridement, using a 5 mm curette, the preponderance of the callus was removed. This has been a big step forward in terms of treating this foot ulceration. - Additional Wound Laterality: Right - Bunion Type of Debridement: Excisional debridement Anesthesia Used: 5% Lidocaine Gel Depth: Down to and including healthy tissue, in the subcutaneous layer Percentage of wound debrided: 100 Instrument Used: 5mm curette Tissue Removed: Bioburden and callus tissue Severity: Fat Layer Exposed Amount of bleeding with debridement: Mild Bleeding Controlled with: Compression and gauze Patient tolerated procedure: Patient tolerated procedure well Assessment/Plan Active Problems Traumatic open wound of lower leg (Chronic) Leg swelling (Chronic) Edema of leg (Chronic) Morbid obesity with BMI of 45.0-49.9, adult (Chronic) Diabetic foot wound, [place] Grade 1 (Chronic) Ulcer of foot due to diabetes (Chronic) Assessment: This is a 58-year-old female who presented with traumatic wounds on the right lower extremity, of several months duration. Despite the use of collagen hydrogel, there has been no significant improvement. The patient is known to be a diabetic. Additionally, she has developed callus and an ulceration overlying a bunion on the right foot. This appears to be pressure related due to poor fitting shoes. A noninvasive lower extremity arterial study performed about 1 year ago was normal, revealing triphasic waveforms at ankle level bilaterally, normal resting ankle?brachial indices bilaterally, and normal digital-brachial indices bilaterally. Recent laboratory studies have been obtained, dated February 22, 2019, with results as follows: White blood count 6.2, hemoglobin 14.1, hematocrit 43.4, platelets 218,000, glucose 143, sodium 137, potassium 4.3, chloride 100, BUN 18, creatinine 0.80, calcium 9.5, total protein 6.6, albumin 3.6, hemoglobin A1c 8.3. Additionally, cultures were positive for Leclercia adecoxylata, Staphlococcus lugdunensis, and Corynebacterium amycolatum. The patient has been started on Augmentin 875 mg p.o. twice daily for a total of 10 days, which has been completed. Plan: Patient has been counseled as to the appropriate foot care necessary in diabetic patients. We are too continue the use of a postop shoe for offloading relative to the ulceration of the right foot. She has also obtained new footwear, which is appropriate and no longer applying pressure to pressure points of her feet. Patient has been advised to optimize her glycemic control. Adequate nutrition has been advised. We are to continue the use of collagen hydrogel topically relative to the ulceration of the right foot. The collagen hydrogel has resulted in significant improvement, allowing for debridement and removal of the preponderance of the callus tissue surrounding the ulceration. This has been a major step forward. We are to continue the use of collagenase Santyl topically to each of the 2 adjacent traumatic wounds on the right lateral calf. The patient is to return in 1 week for reassessment. The patient is to continue wearing her graduated compression stockings of 20 to 30 mmHg compression on a daily basis. The patient is to continue elevating her legs as much as possible. She is to avoid prolonged idle sitting. The patient has been encouraged to assure adequate nutrition. Optimizing glycemic control has also been advised. Weight loss has also been recommended. We are to consider the use of a skin graft substitute such as Grafix PL in the near future, the first application of which may be considered at her next visit. Influenza vaccine was not administered today. The patient is not a smoker. Patient weighs 265 pounds. She stands 5 feet 4 inches tall. Her BMI is 45.5, which places her in a class III category. Weight loss has been recommended, and collaboration with the patient's primary care physician has been recommended.
[2019-05-07 08:16] VITALS: BP 149/75; PULSE 113; RESP 18; TEMP 36.6; BMI 44.9
--- NOTE | 2019-05-07 09:08 | HP.PCM_ITS ---
(1) Traumatic open wound of lower leg Status: Chronic Current Visit: Yes Qualifiers: Encounter type: subsequent encounter Laterality: right Qualified Code(s): S81.801D - Unspecified open wound, right lower leg, subsequent encounter Code(s): S81.809A - Unspecified open wound, unspecified lower leg, initial encounter (2) Leg swelling Status: Chronic Current Visit: Yes Code(s): M79.89 - Other specified soft tissue disorders (3) Edema of leg Status: Chronic Current Visit: Yes Code(s): R60.0 - Localized edema (4) Diabetes mellitus Status: Chronic Current Visit: No Qualifiers: Diabetes mellitus type: type 2 Code(s): E11.9 - Type 2 diabetes mellitus without complications (5) Morbid obesity with BMI of 45.0-49.9, adult Status: Chronic Current Visit: Yes Code(s): E66.01 - Morbid (severe) obesity due to excess calories; Z68.42 - Body mass index (BMI) 45.0-49.9, adult (6) COPD (chronic obstructive pulmonary disease) Status: Chronic Current Visit: No Code(s): J44.9 - Chronic obstructive pulmonary disease, unspecified (7) Coronary artery arteriosclerosis Status: Chronic Current Visit: No Code(s): I25.10 - Atherosclerotic heart disease of [place] coronary artery without angina pectoris (8) Diabetic foot wound, Hubbard Grade 1 Status: Chronic Current Visit: Yes (9) Ulcer of foot due to diabetes Status: Chronic Current Visit: Yes Qualifiers: Diabetic foot ulcer location: toe Diabetes mellitus type: type 2 Code(s): E11.621 - Type 2 diabetes mellitus with foot ulcer; L97.509 - Non- pressure chronic ulcer of other part of unspecified foot with unspecified severity (10) Lumbar disc disease with radiculopathy Status: Chronic Current Visit: No Code(s): M51.16 - Intervertebral disc disorders with radiculopathy, lumbar region History of Present Illness Date of Service: 05/07/19 Chief Complaint: Traumatic open wound of the right lower extremity, Diabetic right foot wound - Hubbard Grade 1 History of Wound: This is a 58-year-old diabetic female who has been previously treated in our facility for a traumatic wound on the left lower extremity. She presented this time with wounds in her right lower extremity. There are 2 wounds involving the right calf, which are traumatic in origin. They are located on the right anterior tibial surface and on the right lateral calf. These occurred due to impact with a car door in December 2018. Patient has been using collagen hydrogel topically. She also has a more recent ulceration on the right foot, located overlying a bunion, which has been present for only several weeks. According the patient, this has occurred as a result of a new pair of sneakers, which she obtained at a retail establishment. The patient is known to be diabetic, and her blood sugars appear to be reasonably well controlled, based upon the patient's account. The previous wound in the left lower extremity has remained healed. The patient has continued to implement conservative treatment measures previously recommended, including leg elevation, avoidance of idle standing and sitting, active lifestyle, attempts at weight loss, and the use of graduated compression stockings on a daily basis, of 20 to 30 mmHg compression. Past Medical History Past Medical History: Chronic Problems Traumatic open wound of lower leg (Chronic) Leg swelling (Chronic) Edema of leg (Chronic) Diabetes mellitus (Chronic) Morbid obesity with BMI of 45.0-49.9, adult (Chronic) COPD (chronic obstructive pulmonary disease) (Chronic) Coronary artery arteriosclerosis (Chronic) Diabetic foot wound, Hubbard Grade 1 (Chronic) Ulcer of foot due to diabetes (Chronic) Lumbar disc disease with radiculopathy (Chronic) Surgical History: - - The patient has a history of coronary artery stent placement. She has undergone open reduction and internal fixation of a left tibia fracture. She underwent right meniscus repair in the past. She is a Ab0. Allergies/Adverse Reactions: Allergies bee venom protein (honey bee) Adverse Reaction (Verified 03/19/19 09:02) Swelling Home Medications: Ambulatory Orders Medication Instructions Recorded Aspirin E.C. [Ecotrin] 81 mg PO DAILY@0800 09/03/13 Hydrocodone/Acetaminophen [Vicodin 1 - 2 tablet PO Q6H PRN PRN 09/03/13 5-300 mg Tablet] Lisinopril 10 mg PO DAILY 09/03/13 Metformin [Metformin HCl] 1,000 mg PO BID 09/03/13 Metoprolol Tartrate 50 mg PO DAILY 09/03/13 Dulaglutide [Trulicity] 0.75 mg SQ 01/02/18 Fluticasone/Vilanterol [Breo 1 each IH 01/02/18 Ellipta 200-25 Mcg INH] Insulin Glargine,Hum.rec.anlog 56 unit BID 01/02/18 [Lantus] Sitagliptin Phosphate [Januvia] 25 mg PO DAILY 01/02/18 Tiotropium [place] [Spiriva] 18 mcg IH 01/02/18 - Family History Paternal - - The patient's father at the age of 78 with history of chronic obstructive pulmonary disease. The patient's mother at the age of 84 with history of chronic obstructive pulmonary disease. Smoking Status: Former smoker Tobacco Use: Non-smoker Review of Systems Constitutional: Denies: Chills, Fever, Weight Change Eyes: Denies: Pain, Vision Change HEENT: Denies: Difficulty Hearing, Difficulty Swallowing, Sinus Congestion Cardiovascular: Denies: Chest Pain, Palpitations Respiratory: Denies: Cough, Shortness of Breath Gastrointestinal: Denies: Diarrhea, Nausea, Vomiting Genitourinary: Denies: Dysuria, Hematuria Endocrine: Denies: Heat/ Cold Intolerance, Polydipsia, Polyuria Hematologic/ Lymphatic: Denies: Easy Bruising, Easy Bleeding - Physical Exam Vital Signs Temp Pulse Resp BP 97.9 F 113 H 18 149/75 H 05/07/19 08:16 05/07/19 08:16 05/07/19 08:16 05/07/19 08:16 General: Alert, Oriented x3, Cooperative, No apparent distress, Well developed, Well nourished, - - The patient is morbidly obese. HEENT: Atraumatic, PERRLA, EOMI, Normocephalic Oral: Moist Mucosa Neck: No JVD Lungs: Normal air movement Abdomen: Non-Distended, Obese Extremities: No clubbing, No cyanosis, No edema, No Calf Tenderness, - - There is little change in the appearance of the traumatic wounds on the right anterolateral calf. These are pared wounds, adjacent to each other. The more inferior of the 2 wounds is the larger. The base of the wounds are generally pink and healthy in appearance, with a moderate amount of bioburden and nonviable tissue. There is no obvious sign of infection or cellulitis. Dimensions are documented elsewhere. The callused wound on the medial aspect of the right foot is slightly improved. A significant amount of callus persists. Dimensions are documented elsewhere. The base of this wound is generally pink and healthy, with a small amount of bioburden. Skin: No rashes Wound Measurements and Assessment WC - Nurse 1 - General Ulcer Measurement Start: 04/30/19 08:05 Freq: Status: Active Protocol: Activity Type Activity Date Activity User E-Sign Co-Sign Detail Recorded Client Recorded Date Recorded By Document 05/07/19 08:16 JOSE [id number] 05/07/19 08:26 JOSE 05/07/19 08:16 Wound Center Nurse 1 [Ulcer Assessment] #4 R Lat Met Head -Combined with other wound No -Current Size (cm) - Length 0.4 -Current Size (cm) - Width 0.2 -Current Size (cm) - Depth 0.2 -Total Square Cm 0.08 -Photo Taken No -Epithelialization None Present -Tunneling No -Undermining/Tunneling No -Circular Undermining No -Exudate Amt Small -Exudate Type Serosanguineous -Wound Margin Flat & Intact -Granulation Amt Large (67-100%) -Granulation Quality Red -Slough/Fibrin Yes -Necrosis Amt Small (1-33%) -Necrotic Tissue Type Adherent Slough -Structure Exposed N/A -Texture (Ketty-wound Skin Appearance) Assessed,Callus -Moisture (Ketty-wound Skin Appearance Assessed,Dry/ ) Scaly -Color (Ketty-wound Skin Appearance) Assessed -Temperature (Ketty-wound Skin No Abnormality Appearance) (Pt Warm) -Tenderness on Palpation (Ketty-wound No Skin Appearance) -Ulcer Cleansing Rinsed/ Irrigated with Saline -Foul Odor after Cleansing No -Anesthetic Used 4% Lidocaine Solution #3 LATERAL RLE -Combined with other wound No -Current Size (cm) - Length 0.9 -Current Size (cm) - Width 0.7 -Current Size (cm) - Depth 0.2 -Total Square Cm 0.63 -Photo Taken No -Tunneling No -Undermining/Tunneling No -Circular Undermining No -Exudate Amt Small -Exudate Type Serosanguineous -Wound Margin Flat & Intact -Granulation Amt Large (67-100%) -Granulation Quality Red -Slough/Fibrin Yes -Necrosis Amt Small (1-33%) -Necrotic Tissue Type Adherent Slough -Structure Exposed N/A -Texture (Ketty-wound Skin Appearance) Assessed, Localized Edema -Moisture (Ketty-wound Skin Appearance Assessed,Dry/ ) Scaly -Color (Ketty-wound Skin Appearance) Assessed -Temperature (Ketty-wound Skin No Abnormality Appearance) (Pt Warm) -Tenderness on Palpation (Ketty-wound No Skin Appearance) -Ulcer Cleansing Rinsed/ Irrigated with Saline -Foul Odor after Cleansing No -Anesthetic Used 4% Lidocaine Solution #2 R Vaz -Combined with other wound No -Current Size (cm) - Length 2.5 -Current Size (cm) - Width 2.2 -Current Size (cm) - Depth 0.2 -Total Square Cm 5.50 -Photo Taken No -Epithelialization Small 1-33% -Tunneling No -Undermining/Tunneling No -Circular Undermining No -Exudate Amt Medium -Exudate Type Serosanguineous -Wound Margin Flat & Intact -Granulation Amt Large (67-100%) -Granulation Quality Red -Slough/Fibrin Yes -Necrosis Amt Small (1-33%) -Necrotic Tissue Type Adherent Slough -Structure Exposed N/A -Texture (Ketty-wound Skin Appearance) Assessed, Localized Edema -Moisture (Ketty-wound Skin Appearance Assessed,Dry/ ) Scaly -Color (Ketty-wound Skin Appearance) Assessed -Temperature (Ketty-wound Skin No Abnormality Appearance) (Pt Warm) -Tenderness on Palpation (Ketty-wound No Skin Appearance) -Ulcer Cleansing Rinsed/ Irrigated with Saline -Foul Odor after Cleansing No -Anesthetic Used 4% Lidocaine Solution [Edema Assessment] -Lower Limb Edema Present Yes -Right Calf (cm) 42.8 -Right Ankle (cm) 24.8 WC - Nurse 2 - General Ulcer CM Notes Start: 04/30/19 08:05 Freq: Status: Active Protocol: Activity Type Activity Date Activity User E-Sign Co-Sign Detail Recorded Client Recorded Date Recorded By Document 05/07/19 09:04 DV [id number] 05/07/19 09:07 DV 05/07/19 09:04 Wound Center Nurse 2 [Procedure/Treatment] #4 R Lat Met Head -Time 09:05 -Correct Patient Yes -Correct Side, Site, Position Yes -Correct Procedure Yes -Procedure Performed Yes -Type of Procedure Debridement -Clinical Debridement Subcutaneous -Post Debridement Size (cm) - Length 0.5 -Post Debridement Size (cm) - Width 0.2 -Post Debridement Size (cm) - Depth 0.2 -Total Square Cm 0.10 -Wound/Ulcer Outcome Not Healed -Ulcer Cleansing Rinsed/ Irrigated with Saline -Foul Odor after Cleansing No -Bioengineered Tissue No -Bleeding Controlled with Pressure -Offloading No -Treatment Response Procedure Tolerated Well #3 LATERAL RLE -Time 09:06 -Correct Patient Yes -Correct Side, Site, Position Yes -Correct Procedure Yes -Procedure Performed Yes -Type of Procedure Debridement -Clinical Debridement Subcutaneous -Post Debridement Size (cm) - Length 1.0 -Post Debridement Size (cm) - Width 1.0 -Post Debridement Size (cm) - Depth 0.2 -Total Square Cm 1.00 -Wound/Ulcer Outcome Not Healed -Ulcer Cleansing Rinsed/ Irrigated with Saline -Foul Odor after Cleansing No -Bioengineered Tissue No -Bleeding Controlled with Pressure -Offloading No -Treatment Response Procedure Tolerated Well #2 R Vaz -Time 09:06 -Correct Patient Yes -Correct Side, Site, Position Yes -Correct Procedure Yes -Procedure Performed Yes -Type of Procedure Debridement -Clinical Debridement Subcutaneous -Post Debridement Size (cm) - Length 2.8 -Post Debridement Size (cm) - Width 2.5 -Post Debridement Size (cm) - Depth 0.2 -Total Square Cm 7.00 -Wound/Ulcer Outcome Not Healed -Ulcer Cleansing Rinsed/ Irrigated with Saline -Foul Odor after Cleansing No -Bioengineered Tissue Yes -Type of bioengineered Tissue GRAFIX-Pime -Bleeding Controlled with Pressure -Offloading No -Treatment Response Procedure Tolerated Well [See Physician Procedure note for Specifics] Pain Scale: 0-10 Numeric [Pain] -Is Patient Pain Free? Yes Musculoskeletal: No Muscle Wasting Neurological: Cranial nerves II-XII grossly intact, Neuro grossly intact Psych/Mental Status: Normal Affect, Appropriate, Alert and oriented to time, place, person, mood and affect Debridement Note Post-Debridement Measurements/Treatment WC - Nurse 2 - General Ulcer CM Notes Start: 04/30/19 08:05 Freq: Status: Active Protocol: Activity Type Activity Date Activity User E-Sign Co-Sign Detail Recorded Client Recorded Date Recorded By Document 04/30/19 08:30 DV [id number] 04/30/19 08:32 DV Document 05/07/19 09:04 DV [id number] 05/07/19 09:07 DV 04/30/19 05/07/19 08:30 09:04 Wound Center Nurse 2 #4 R Lat Met Head -Time 09:05 -Correct Patient Yes -Correct Side, Site, Position Yes -Correct Procedure Yes -Procedure Performed Yes -Type of Procedure Debridement -Clinical Debridement Subcutaneous -Post Debridement Size (cm) - Length 0.5 0.5 -Post Debridement Size (cm) - Width 0.3 0.2 -Post Debridement Size (cm) - Depth 0.2 0.2 -Total Square Cm 0.15 0.10 -Wound/Ulcer Outcome Not Healed -Ulcer Cleansing Rinsed/ Irrigated with Saline -Foul Odor after Cleansing No -Bioengineered Tissue No -Bleeding Controlled with Pressure -Offloading No -Treatment Response Procedure Tolerated Well #3 LATERAL RLE -Time 09:06 -Correct Patient Yes -Correct Side, Site, Position Yes -Correct Procedure Yes -Procedure Performed Yes -Type of Procedure Debridement -Clinical Debridement Subcutaneous -Post Debridement Size (cm) - Length 0.8 1.0 -Post Debridement Size (cm) - Width 0.7 1.0 -Post Debridement Size (cm) - Depth 0.3 0.2 -Total Square Cm 0.56 1.00 -Wound/Ulcer Outcome Not Healed -Ulcer Cleansing Rinsed/ Irrigated with Saline -Foul Odor after Cleansing No -Bioengineered Tissue No -Bleeding Controlled with Pressure -Offloading No -Treatment Response Procedure Tolerated Well #2 R Vaz -Time 09:06 -Correct Patient Yes -Correct Side, Site, Position Yes -Correct Procedure Yes -Procedure Performed Yes -Type of Procedure Debridement -Clinical Debridement Subcutaneous -Post Debridement Size (cm) - Length 2.3 2.8 -Post Debridement Size (cm) - Width 2.0 2.5 -Post Debridement Size (cm) - Depth 0.3 0.2 -Total Square Cm 4.60 7.00 -Wound/Ulcer Outcome Not Healed -Ulcer Cleansing Rinsed/ Irrigated with Saline -Foul Odor after Cleansing No -Bioengineered Tissue Yes -Type of bioengineered Tissue GRAFIX-Pime -Bleeding Controlled with Pressure -Offloading No -Treatment Response Procedure Tolerated Well Pain Scale: 0-10 Numeric Is Patient Pain Free? Yes Laterality: Right - Trial lateral calf Type of Debridement: Excisional debridement Anesthesia Used: 5% Lidocaine Gel Depth: Down to and including healthy tissue, in the subcutaneous layer Percentage of wound debrided: 100 Instrument Used: 5mm curette Tissue Removed: Bioburden and nonviable tissue Severity: Fat Layer Exposed Amount of bleeding with debridement: Mild Bleeding Controlled with: Compression and gauze Patient tolerated procedure well Following a routine excisional debridement, which was well-tolerated by the patient, a Grafix PL 16 mm allograft was placed on the bigger of the 2 wounds. A larger graft was warranted, but not available. As result, the available allograft was cut to the appropriate configuration, and placed in such a way as to cover most of the wound margin of the larger right calf wound. Once in place, Adaptic Touch was placed, and secured with Steri-Strips. A dry sterile gauze dressing was applied. - Additional Wound Laterality: Right - Bunion Type of Debridement: Excisional debridement Anesthesia Used: 5% Lidocaine Gel Depth: Down to and including healthy tissue, in the subcutaneous layer Percentage of wound debrided: 100 Instrument Used: 5mm curette Tissue Removed: Callus and bioburden Severity: Fat Layer Exposed Amount of bleeding with debridement: Mild Bleeding Controlled with: Compression and gauze Patient tolerated procedure: Patient tolerated procedure well Assessment/Plan Active Problems Traumatic open wound of lower leg (Chronic) Leg swelling (Chronic) Edema of leg (Chronic) Morbid obesity with BMI of 45.0-49.9, adult (Chronic) Diabetic foot wound, Hubbard Grade 1 (Chronic) Ulcer of foot due to diabetes (Chronic) Assessment: This is a 58-year-old female who presented with traumatic wounds on the right lower extremity, of several months duration. We have been using collagen hydrogel topically to the wound and callus overlying the bunion on the right foot. Collagen hydrogel has significantly softened this tissue, allowing serial debridements to eliminate much of the callus tissue. This appears to be pressure related due to poor fitting shoes. A noninvasive lower extremity arterial study performed about 1 year ago was normal, revealing triphasic waveforms at ankle level bilaterally, normal resting ankle?brachial indices bilaterally, and normal digital-brachial indices bilaterally. Recent laboratory studies have been obtained, dated February 22, 2019, with results as follows: White blood count 6.2, hemoglobin 14.1, hematocrit 43.4, platelets 218,000, glu cose 143, sodium 137, potassium 4.3, chloride 100, BUN 18, creatinine 0.80, calcium 9.5, total protein 6.6, albumin 3.6, hemoglobin A1c 8.3. Recent cultures were positive for Leclercia adecoxylata, Staphlococcus lugdunensis, and Corynebacterium amycolatum. The patient has been started on Augmentin 875 mg p.o. twice daily for a total of 10 days, which has been completed. Plan: Patient has been counseled as to the appropriate foot care necessary in diabetic patients. We are too continue the use of a postop shoe for offloading relative to the ulceration of the right foot. She has also obtained new footwear, which is appropriate and no longer applying pressure to pressure points of her feet. Patient has been advised to optimize her glycemic control. Adequate nutrition has been advised. We are to continue the use of collagen hydrogel topically relative to the ulceration of the right foot. The collagen hydrogel has resulted in significant improvement, allowing for debridement and removal of the preponderance of the callus tissue surrounding the ulceration. This has been a major step forward. We are to continue the use of collagenase Santyl topically to the smaller of the 2 wounds on the right lateral calf. A Grafix PL allograft has been placed on the larger of the 2 wounds on the right calf today, and will be left in place, undisturbed, until the patient's return visit in 1 week. The patient is to return in 1 week for reassessment. The patient is to continue wearing her graduated compression stockings of 20 to 30 mmHg compression on a daily basis. The patient is to continue elevating her legs as much as possible. She is to avoid prolonged idle sitting. The patient has been encouraged to assure adequate nutrition. Optimizing glycemic control has also been advised. Weight loss has also been recommended. We are to consider the repeat use of Grafix PL at subsequent visits. Influenza vaccine was not administered today. The patient is not a smoker. Patient weighs 265 pounds. She stands 5 feet 4 inches tall. Her BMI is 45.5, which places her in a class III category. Weight loss has been recommended, and collaboration with the patient's primary care physician has been recommended.
[2019-05-14 08:00] VITALS: BP 153/78; PULSE 111; RESP 18; TEMP 35.9; BMI 44.9
--- NOTE | 2019-05-14 08:40 | PCM.WC.HP ---
(1) Traumatic open wound of lower leg Status: Chronic Current Visit: Yes Qualifiers: Encounter type: subsequent encounter Laterality: right Qualified Code(s): S81.801D - Unspecified open wound, right lower leg, subsequent encounter Code(s): S81.809A - Unspecified open wound, unspecified lower leg, initial encounter (2) Leg swelling Status: Chronic Current Visit: Yes Code(s): M79.89 - Other specified soft tissue disorders (3) Edema of leg Status: Chronic Current Visit: Yes Code(s): R60.0 - Localized edema (4) Diabetes mellitus Status: Chronic Current Visit: No Qualifiers: Diabetes mellitus type: type 2 Code(s): E11.9 - Type 2 diabetes mellitus without complications (5) Morbid obesity with BMI of 45.0-49.9, adult Status: Chronic Current Visit: Yes Code(s): E66.01 - Morbid (severe) obesity due to excess calories; Z68.42 - Body mass index (BMI) 45.0-49.9, adult (6) COPD (chronic obstructive pulmonary disease) Status: Chronic Current Visit: No Code(s): J44.9 - Chronic obstructive pulmonary disease, unspecified (7) Coronary artery arteriosclerosis Status: Chronic Current Visit: No Code(s): I25.10 - Atherosclerotic heart disease of [place] coronary artery without angina pectoris (8) Diabetic foot wound, Hubbard Grade 1 Status: Chronic Current Visit: Yes (9) Ulcer of foot due to diabetes Status: Chronic Current Visit: Yes Qualifiers: Diabetic foot ulcer location: toe Diabetes mellitus type: type 2 Code(s): E11.621 - Type 2 diabetes mellitus with foot ulcer; L97.509 - Non-pressure chronic ulcer of other part of unspecified foot with unspecified severity (10) Lumbar disc disease with radiculopathy Status: Chronic Current Visit: No Code(s): M51.16 - Intervertebral disc disorders with radiculopathy, lumbar region History of Present Illness Date of Service: 05/14/19 Chief Complaint: Traumatic open wound of the right lower extremity, Diabetic right foot wound - Hubbard Grade 1 History of Wound: This is a 58-year-old diabetic female who has been previously treated in our facility for a traumatic wound on the left lower extremity. She presented this time with wounds in her right lower extremity. There are 2 wounds involving the right calf, which are traumatic in origin. They are located on the right anterior tibial surface and on the right lateral calf. These occurred due to impact with a car door in December 2018. Patient has been using collagen hydrogel topically. She also has a more recent ulceration on the right foot, located overlying a bunion, which has been present for only several weeks. According the patient, this has occurred as a result of a new pair of sneakers, which she obtained at a retail establishment. The patient is known to be diabetic, and her blood sugars appear to be reasonably well controlled, based upon the patient's account. The previous wound in the left lower extremity has remained healed. The patient has continued to implement conservative treatment measures previously recommended, including leg elevation, avoidance of idle standing and sitting, active lifestyle, attempts at weight loss, and the use of graduated compression stockings on a daily basis, of 20 to 30 mmHg compression. Past Medical History Past Medical History: Chronic Problems Traumatic open wound of lower leg (Chronic) Leg swelling (Chronic) Edema of leg (Chronic) Diabetes mellitus (Chronic) Morbid obesity with BMI of 45.0-49.9, adult (Chronic) COPD (chronic obstructive pulmonary disease) (Chronic) Coronary artery arteriosclerosis (Chronic) Diabetic foot wound, Hubbard Grade 1 (Chronic) Ulcer of foot due to diabetes (Chronic) Lumbar disc disease with radiculopathy (Chronic) Surgical History: - - The patient has a history of coronary artery stent placement. She has undergone open reduction and internal fixation of a left tibia fracture. She underwent right meniscus repair in the past. She is a Ab0. Allergies/Adverse Reactions: Allergies bee venom protein (honey bee) Adverse Reaction (Verified 03/19/19 09:02) Swelling Home Medications: Ambulatory Orders Medication Instructions Recorded Aspirin E.C. [Ecotrin] 81 mg PO DAILY@0800 09/03/13 Hydrocodone/Acetaminophen [Vicodin 1 - 2 tablet PO Q6H PRN PRN 09/03/13 5-300 mg Tablet] Lisinopril 10 mg PO DAILY 09/03/13 Metformin [Metformin HCl] 1,000 mg PO BID 09/03/13 Metoprolol Tartrate 50 mg PO DAILY 09/03/13 Dulaglutide [Trulicity] 0.75 mg SQ 01/02/18 Fluticasone/Vilanterol [Breo 1 each IH 01/02/18 Ellipta 200-25 Mcg INH] Insulin Glargine,Hum.rec.anlog 56 unit BID 01/02/18 [Lantus] Sitagliptin Phosphate [Januvia] 25 mg PO DAILY 01/02/18 Tiotropium [place] [Spiriva] 18 mcg IH 01/02/18 - Family History Paternal - - The patient's father at the age of 78 with history of chronic obstructive pulmonary disease. The patient's mother at the age of 84 with history of chronic obstructive pulmonary disease. Smoking Status: Former smoker Tobacco Use: Non-smoker Review of Systems Constitutional: Denies: Chills, Fever, Weight Change Eyes: Denies: Pain, Vision Change HEENT: Denies: Difficulty Hearing, Difficulty Swallowing, Sinus Congestion Cardiovascular: Denies: Chest Pain, Palpitations Respiratory: Denies: Cough, Shortness of Breath Gastrointestinal: Denies: Diarrhea, Nausea, Vomiting Genitourinary: Denies: Dysuria, Hematuria Endocrine: Denies: Heat/ Cold Intolerance, Polydipsia, Polyuria Hematologic/ Lymphatic: Denies: Easy Bruising, Easy Bleeding - Physical Exam Vital Signs Temp Pulse Resp BP 96.7 F L 111 H 18 153/78 H 05/14/19 08:00 05/14/19 08:00 05/14/19 08:00 05/14/19 08:00 General: Alert, Oriented x3, Cooperative, No apparent distress, Well developed, Well nourished, - - Patient is obese. HEENT: Atraumatic, PERRLA, EOMI, Normocephalic Oral: Moist Mucosa Neck: No JVD Lungs: Normal air movement Abdomen: Non-Distended Extremities: No clubbing, No cyanosis, No edema, No Calf Tenderness, - - There is no significant swelling or edema in the patient's right lower extremity. The ulceration overlying the patient's right bunion (Hubbard grade 1) is much improved. The amount of callus surrounding the ulceration is markedly diminished, the result of serial debridements in weeks past. There is a small amount of callus remaining. There is a small amount of bioburden at the site. There is no sign of infection or cellulitis. The wounds on the right anterolateral calf persist as well. The Grafix PL allograft remains intact and in place from last week, when it was applied. The dressing is in place as well, without any significant drainage, malodor, or any sign of infection. The satellite wound, the smaller of the 2, is generally pink and healthy in appearance, with a small to moderate amount of bioburden. Dimensions are documented elsewhere. There is no sign of infection or cellulitis. Skin: No rashes Wound Measurements and Assessment WC - Nurse 1 - General Ulcer Measurement Start: 04/30/19 08:05 Freq: Status: Active Protocol: Activity Type Activity Date Activity User E-Sign Co-Sign Detail Recorded Client Recorded Date Recorded By Document 05/14/19 08:00 JF [id number] 05/14/19 08:07 JOSE 05/14/19 08:00 Wound Center Nurse 1 [Ulcer Assessment] #4 R Lat Met Head -Combined with other wound No -Current Size (cm) - Length 0.3 -Current Size (cm) - Width 0.2 -Current Size (cm) - Depth 0.2 -Total Square Cm 0.06 -Photo Taken No -Epithelialization Small 1-33% -Tunneling No -Undermining/Tunneling No -Circular Undermining No -Exudate Amt Small -Exudate Type Serosanguineous -Wound Margin Flat & Intact -Granulation Amt Large (67-100%) -Granulation Quality Red -Slough/Fibrin Yes -Necrosis Amt Small (1-33%) -Necrotic Tissue Type Adherent Slough -Structure Exposed N/A -Texture (Ktety-wound Skin Appearance) Assessed,Callus -Moisture (Ketty-wound Skin Appearance Assessed,Dry/ ) Scaly -Color (Ketty-wound Skin Appearance) Assessed -Temperature (Ketty-wound Skin No Abnormality Appearance) (Pt Warm) -Tenderness on Palpation (Ketty-wound No Skin Appearance) -Ulcer Cleansing Rinsed/ Irrigated with Saline -Foul Odor after Cleansing No -Anesthetic Used 4% Lidocaine Solution #3 LATERAL RLE -Combined with other wound No -Current Size (cm) - Length 0.9 -Current Size (cm) - Width 0.7 -Current Size (cm) - Depth 0.2 -Total Square Cm 0.63 -Photo Taken No -Epithelialization Small 1-33% -Tunneling No -Undermining/Tunneling No -Circular Undermining No -Exudate Amt Small -Exudate Type Serosanguineous -Wound Margin Flat & Intact -Granulation Amt Medium (34-66%) -Granulation Quality Red -Slough/Fibrin Yes -Necrosis Amt Small (1-33%) -Necrotic Tissue Type Adherent Slough -Structure Exposed N/A -Texture (Ketty-wound Skin Appearance) Assessed, Localized Edema -Moisture (Ketty-wound Skin Appearance Assessed,Dry/ ) Scaly -Color (Ketty-wound Skin Appearance) Assessed, Hemosiderin Staining -Temperature (Ketty-wound Skin No Abnormality Appearance) (Pt Warm) -Tenderness on Palpation (Ketty-wound No Skin Appearance) -Ulcer Cleansing Rinsed/ Irrigated with Saline -Foul Odor after Cleansing No -Anesthetic Used 4% Lidocaine Solution [Edema Assessment] -Lower Limb Edema Present Yes -Right Calf (cm) 43.3 -Right Ankle (cm) 25.2 Musculoskeletal: No Muscle Wasting Neurological: Cranial nerves II-XII grossly intact, Neuro grossly intact Psych/Mental Status: Normal Affect, Appropriate, Alert and oriented to time, place, person, mood and affect Debridement Note Post-Debridement Measurements/Treatment WC - Nurse 2 - General Ulcer CM Notes Start: 04/30/19 08:05 Freq: Status: Active Protocol: Activity Type Activity Date Activity User E-Sign Co-Sign Detail Recorded Client Recorded Date Recorded By Document 04/30/19 08:30 DV [id number] 04/30/19 08:32 DV Document 05/07/19 09:04 DV [id number] 05/07/19 09:07 DV 04/30/19 05/07/19 08:30 09:04 Wound Center Nurse 2 #4 R Lat Met Head -Time 09:05 -Correct Patient Yes -Correct Side, Site, Position Yes -Correct Procedure Yes -Procedure Performed Yes -Type of Procedure Debridement -Clinical Debridement Subcutaneous -Post Debridement Size (cm) - Length 0.5 0.5 -Post Debridement Size (cm) - Width 0.3 0.2 -Post Debridement Size (cm) - Depth 0.2 0.2 -Total Square Cm 0.15 0.10 -Wound/Ulcer Outcome Not Healed -Ulcer Cleansing Rinsed/ Irrigated with Saline -Foul Odor after Cleansing No -Bioengineered Tissue No -Bleeding Controlled with Pressure -Offloading No -Treatment Response Procedure Tolerated Well #3 LATERAL RLE -Time 09:06 -Correct Patient Yes -Correct Side, Site, Position Yes -Correct Procedure Yes -Procedure Performed Yes -Type of Procedure Debridement -Clinical Debridement Subcutaneous -Post Debridement Size (cm) - Length 0.8 1.0 -Post Debridement Size (cm) - Width 0.7 1.0 -Post Debridement Size (cm) - Depth 0.3 0.2 -Total Square Cm 0.56 1.00 -Wound/Ulcer Outcome Not Healed -Ulcer Cleansing Rinsed/ Irrigated with Saline -Foul Odor after Cleansing No -Bioengineered Tissue No -Bleeding Controlled with Pressure -Offloading No -Treatment Response Procedure Tolerated Well #2 R Vaz -Time 09:06 -Correct Patient Yes -Correct Side, Site, Position Yes -Correct Procedure Yes -Procedure Performed Yes -Type of Procedure Debridement -Clinical Debridement Subcutaneous -Post Debridement Size (cm) - Length 2.3 2.8 -Post Debridement Size (cm) - Width 2.0 2.5 -Post Debridement Size (cm) - Depth 0.3 0.2 -Total Square Cm 4.60 7.00 -Wound/Ulcer Outcome Not Healed -Ulcer Cleansing Rinsed/ Irrigated with Saline -Foul Odor after Cleansing No -Bioengineered Tissue Yes -Type of bioengineered Tissue GRAFIX-Pime -Bleeding Controlled with Pressure -Offloading No -Treatment Response Procedure Tolerated Well Pain Scale: 0-10 Numeric Is Patient Pain Free? Yes Laterality: Right - Anterolateral calf Type of Debridement: Excisional debridement Anesthesia Used: 5% Lidocaine Gel Depth: Down to and including healthy tissue, in the subcutaneous layer Percentage of wound debrided: 100 Instrument Used: 5mm curette Tissue Removed: Bioburden and nonviable tissue Severity: Fat Layer Exposed Amount of bleeding with debridement: Mild Bleeding Controlled with: Compression and gauze Patient tolerated procedure well - Additional Wound Laterality: Right - Medial foot/bunion Type of Debridement: Excisional debridement Anesthesia Used: 5% Lidocaine Gel Depth: Down to and including healthy tissue, in the subcutaneous layer Percentage of wound debrided: 100 Instrument Used: 5mm curette Tissue Removed: Bioburden and callus tissue Severity: Fat Layer Exposed Amount of bleeding with debridement: Mild Bleeding Controlled with: Compression and gauze Patient tolerated procedure: Patient tolerated procedure well Assessment/Plan Active Problems Traumatic open wound of lower leg (Chronic) Leg swelling (Chronic) Edema of leg (Chronic) Morbid obesity with BMI of 45.0-49.9, adult (Chronic) Diabetic foot wound, Hubbard Grade 1 (Chronic) Ulcer of foot due to diabetes (Chronic) Assessment: This is a 58-year-old female who presented with traumatic wounds on the right lower extremity, of several months duration. We have been using collagen hydrogel topically to the wound and callus overlying the bunion on the right foot. Collagen hydrogel has significantly softened this tissue, allowing serial debridements to eliminate much of the callus tissue. This appears to be pressure related due to poor fitting shoes. A noninvasive lower extremity arterial study performed about 1 year ago was normal, revealing triphasic waveforms at ankle level bilaterally, normal resting ankle?brachial indices bilaterally, and normal digital-brachial indices bilaterally. Recent laboratory studies have been obtained, dated February 22, 2019, with results as follows: White blood count 6.2, hemoglobin 14.1, hematocrit 43.4, platelets 218,000, glucose 143, sodium 137, potassium 4.3, chloride 100, BUN 18, creatinine 0.80, calcium 9.5, total protein 6.6, albumin 3.6, hemoglobin A1c 8.3. Recent cultures were positive for Leclercia adecoxylata, Staphlococcus lugdunensis, and Corynebacterium amycolatum. The patient has been started on Augmentin 875 mg p.o. twice daily for a total of 10 days, which has been completed. Plan: Patient has been counseled as to the appropriate foot care necessary in diabetic patients. We are too continue the use of a postop shoe for offloading relative to the ulceration of the right foot. She has also obtained new footwear, which is appropriate and no longer applying pressure to pressure points of her feet. Patient has been advised to optimize her glycemic control. Adequate nutrition has been advised. We are to continue the use of collagen hydrogel topically relative to the ulceration of the right foot. The collagen hydrogel has resulted in significant improvement, allowing for debridement and removal of the preponderance of the callus tissue surrounding the ulceration. This has been a major step forward. We are to continue the use of collagenase Santyl topically to the smaller of the 2 wounds on the right lateral calf. A Grafix PL allograft has been placed on the larger of the 2 wounds on the right calf last week, and will be left in place, undisturbed, until the patient's return visit in 1 week. At that time, it is in vision that additional allografts will be placed serially. The patient is to return in 1 week for reassessment. The patient is to continue wearing her graduated compression stockings of 20 to 30 mmHg compression on a daily basis. The patient is to continue elevating her legs as much as possible. She is to avoid prolonged idle sitting. The patient has been encouraged to assure adequate nutrition. Optimizing glycemic control has also been advised. Weight loss has also been recommended. We anticipate the repeat use of Grafix PL at subsequent visits. Influenza vaccine was not administered today. The patient is not a smoker. Patient weighs 265 pounds. She stands 5 feet 4 inches tall. Her BMI is 45.5, which places her in a class III category. Weight loss has been recommended, and collaboration with the patient's primary care physician has been recommended.
[2019-05-21 08:15] VITALS: BP 139/68; PULSE 69; RESP 18; TEMP 36.2; BMI 44.9
--- NOTE | 2019-05-21 08:47 | PCM.WC.HP ---
(1) Traumatic open wound of lower leg Status: Chronic Current Visit: Yes Qualifiers: Encounter type: subsequent encounter Laterality: right Qualified Code(s): S81.801D - Unspecified open wound, right lower leg, subsequent encounter Code(s): S81.809A - Unspecified open wound, unspecified lower leg, initial encounter (2) Leg swelling Status: Chronic Current Visit: Yes Code(s): M79.89 - Other specified soft tissue disorders (3) Edema of leg Status: Chronic Current Visit: Yes Code(s): R60.0 - Localized edema (4) Diabetes mellitus Status: Chronic Current Visit: No Qualifiers: Diabetes mellitus type: type 2 Code(s): E11.9 - Type 2 diabetes mellitus without complications (5) Morbid obesity with BMI of 45.0-49.9, adult Status: Chronic Current Visit: Yes Code(s): E66.01 - Morbid (severe) obesity due to excess calories; Z68.42 - Body mass index (BMI) 45.0-49.9, adult (6) COPD (chronic obstructive pulmonary disease) Status: Chronic Current Visit: No Code(s): J44.9 - Chronic obstructive pulmonary disease, unspecified (7) Coronary artery arteriosclerosis Status: Chronic Current Visit: No Code(s): I25.10 - Atherosclerotic heart disease of [place] coronary artery without angina pectoris (8) Diabetic foot wound, Hubbard Grade 1 Status: Chronic Current Visit: Yes (9) Ulcer of foot due to diabetes Status: Chronic Current Visit: Yes Qualifiers: Diabetic foot ulcer location: toe Diabetes mellitus type: type 2 Code(s): E11.621 - Type 2 diabetes mellitus with foot ulcer; L97.509 - Non-pressure chronic ulcer of other part of unspecified foot with unspecified severity (10) Lumbar disc disease with radiculopathy Status: Chronic Current Visit: No Code(s): M51.16 - Intervertebral disc disorders with radiculopathy, lumbar region History of Present Illness Date of Service: 05/21/19 Chief Complaint: Traumatic open wound of the right lower extremity, Diabetic right foot wound - Hubbard Grade 1 History of Wound: This is a 58-year-old diabetic female who has been previously treated in our facility for a traumatic wound on the left lower extremity. She presented this time with wounds in her right lower extremity. There are 2 wounds involving the right calf, which are traumatic in origin. They are located on the right anterior tibial surface and on the right lateral calf. These occurred due to impact with a car door in December 2018. Patient has been using collagen hydrogel topically. She also has a more recent ulceration on the right foot, located overlying a bunion, which has been present for only several weeks. According the patient, this has occurred as a result of a new pair of sneakers, which she obtained at a retail establishment. The patient is known to be diabetic, and her blood sugars appear to be reasonably well controlled, based upon the patient's account. The previous wound in the left lower extremity has remained healed. The patient has continued to implement conservative treatment measures previously recommended, including leg elevation, avoidance of idle standing and sitting, active lifestyle, attempts at weight loss, and the use of graduated compression stockings on a daily basis, of 20 to 30 mmHg compression. Past Medical History Past Medical History: Chronic Problems Traumatic open wound of lower leg (Chronic) Leg swelling (Chronic) Edema of leg (Chronic) Diabetes mellitus (Chronic) Morbid obesity with BMI of 45.0-49.9, adult (Chronic) COPD (chronic obstructive pulmonary disease) (Chronic) Coronary artery arteriosclerosis (Chronic) Diabetic foot wound, Hubbard Grade 1 (Chronic) Ulcer of foot due to diabetes (Chronic) Lumbar disc disease with radiculopathy (Chronic) Surgical History: - - The patient has a history of coronary artery stent placement. She has undergone open reduction and internal fixation of a left tibia fracture. She underwent right meniscus repair in the past. She is a Ab0. Allergies/Adverse Reactions: Allergies bee venom protein (honey bee) Adverse Reaction (Verified 03/19/19 09:02) Swelling Home Medications: Ambulatory Orders Medication Instructions Recorded Aspirin E.C. [Ecotrin] 81 mg PO DAILY@0800 09/03/13 Hydrocodone/Acetaminophen [Vicodin 1 - 2 tablet PO Q6H PRN PRN 09/03/13 5-300 mg Tablet] Lisinopril 10 mg PO DAILY 09/03/13 Metformin [Metformin HCl] 1,000 mg PO BID 09/03/13 Metoprolol Tartrate 50 mg PO DAILY 09/03/13 Dulaglutide [Trulicity] 0.75 mg SQ 01/02/18 Fluticasone/Vilanterol [Breo 1 each IH 01/02/18 Ellipta 200-25 Mcg INH] Insulin Glargine,Hum.rec.anlog 56 unit BID 01/02/18 [Lantus] Sitagliptin Phosphate [Januvia] 25 mg PO DAILY 01/02/18 Tiotropium [place] [Spiriva] 18 mcg IH 01/02/18 - Family History Paternal - - The patient's father at the age of 78 with history of chronic obstructive pulmonary disease. The patient's mother at the age of 84 with history of chronic obstructive pulmonary disease. Smoking Status: Former smoker Tobacco Use: Non-smoker Review of Systems Constitutional: Denies: Chills, Fever, Weight Change Eyes: Denies: Pain, Vision Change HEENT: Denies: Difficulty Hearing, Difficulty Swallowing, Sinus Congestion Cardiovascular: Denies: Chest Pain, Palpitations Respiratory: Denies: Cough, Shortness of Breath Gastrointestinal: Denies: Diarrhea, Nausea, Vomiting Genitourinary: Denies: Dysuria, Hematuria Endocrine: Denies: Heat/ Cold Intolerance, Polydipsia, Polyuria Hematologic/ Lymphatic: Denies: Easy Bruising, Easy Bleeding - Physical Exam Vital Signs Temp Pulse Resp BP 97.1 F L 69 18 139/68 H 05/21/19 08:15 05/21/19 08:15 05/21/19 08:15 05/21/19 08:15 General: Alert, Oriented x3, Cooperative, No apparent distress, Well developed, Well nourished HEENT: Atraumatic, PERRLA, EOMI, Normocephalic Oral: Moist Mucosa Neck: No JVD Lungs: Normal air movement Abdomen: Non-Distended Extremities: No clubbing, No cyanosis, No Calf Tenderness, - - There is no significant swelling or edema in the patient's right lower extremity. The ulceration on the right foot, overlying the bunion, continues to improve. There is far less callus formation. The amount of callus tissue diminishes weekly, the result of serial debridements and properly fitted shoes. The ulcerations on the right lateral calf persists, and are slightly larger in size. Dimensions are documented elsewhere. There is no sign of infection or cellulitis. There is a moderate amount of bioburden. Skin: No rashes Wound Measurements and Assessment WC - Nurse 1 - General Ulcer Measurement Start: 04/30/19 08:05 Freq: Status: Active Protocol: Activity Type Activity Date Activity User E-Sign Co-Sign Detail Recorded Client Recorded Date Recorded By Document 05/21/19 08:15 MARCUS [id number] 05/21/19 08:19 MARCUS 05/21/19 08:15 Wound Center Nurse 1 [Ulcer Assessment] #4 R Lat Met Head -Current Size (cm) - Length 0.3 -Current Size (cm) - Width 0.2 -Current Size (cm) - Depth 0.2 -Total Square Cm 0.06 -Photo Taken No -Maximum Distance #2 (cm) 0.1 -Circular Undermining Yes -Exudate Amt None Present -Wound Margin Thickened -Granulation Amt Small (1-33%) -Granulation Quality [place] -Necrosis Amt None Present (0 %) -Structure Exposed N/A -Texture (Ketty-wound Skin Appearance) Callus,Scarring -Moisture (Ketty-wound Skin Appearance Dry/Scaly ) -Color (Ketty-wound Skin Appearance) No Abnormality -Temperature (Ketty-wound Skin No Abnormality Appearance) (Pt Warm) -Tenderness on Palpation (Ketty-wound No Skin Appearance) -Ulcer Cleansing Wound Cleanser -Foul Odor after Cleansing No -Anesthetic Used 4% Lidocaine Solution #3 LATERAL RLE -Current Size (cm) - Length 1.3 -Current Size (cm) - Width 0.8 -Current Size (cm) - Depth 0.2 -Total Square Cm 1.04 -Photo Taken No -Exudate Amt Small -Exudate Type Serosanguineous -Wound Margin Distinct, Outline Attached -Granulation Amt Small (1-33%) -Granulation Quality [place] -Necrosis Amt Medium (34-66%) -Necrotic Tissue Type Adherent Slough -Structure Exposed N/A -Texture (Ketty-wound Skin Appearance) Scarring -Moisture (Ketty-wound Skin Appearance No Abnormality ) -Color (Ketty-wound Skin Appearance) Hemosiderin Staining,Rubor -Temperature (Ketty-wound Skin No Abnormality Appearance) (Pt Warm) -Tenderness on Palpation (Ketty-wound No Skin Appearance) -Ulcer Cleansing Wound Cleanser -Foul Odor after Cleansing No -Anesthetic Used 4% Lidocaine Solution #2 R Vaz -Current Size (cm) - Length 2.6 -Current Size (cm) - Width 2.2 -Current Size (cm) - Depth 0.2 -Total Square Cm 5.72 -Photo Taken No -Exudate Amt Small -Exudate Type Serosanguineous -Wound Margin Distinct, Outline Attached -Granulation Amt Medium (34-66%) -Granulation Quality Red -Necrosis Amt Medium (34-66%) -Necrotic Tissue Type Adherent Slough -Structure Exposed N/A -Texture (Ketty-wound Skin Appearance) Scarring -Moisture (Ketty-wound Skin Appearance No Abnormality ) -Color (Ketty-wound Skin Appearance) Hemosiderin Staining -Temperature (Ketty-wound Skin No Abnormality Appearance) (Pt Warm) -Tenderness on Palpation (Ketty-wound No Skin Appearance) -Ulcer Cleansing Wound Cleanser -Foul Odor after Cleansing No -Anesthetic Used 4% Lidocaine Solution WC - Nurse 2 - General Ulcer CM Notes Start: 04/30/19 08:05 Freq: Status: Active Protocol: Activity Type Activity Date Activity User E-Sign Co-Sign Detail Recorded Client Recorded Date Recorded By Document 05/21/19 08:30 DV [id number] 05/21/19 08:45 DV 05/21/19 08:30 Wound Center Nurse 2 [Procedure/Treatment] #4 R Lat Met Head -Time 08:31 -Correct Patient Yes -Correct Side, Site, Position Yes -Correct Procedure Yes -Procedure Performed Yes -Type of Procedure Debridement -Clinical Debridement Subcutaneous -Post Debridement Size (cm) - Length 0.4 -Post Debridement Size (cm) - Width 0.5 -Post Debridement Size (cm) - Depth 0.2 -Total Square Cm 0.20 -Wound/Ulcer Outcome Not Healed -Ulcer Cleansing Rinsed/ Irrigated with Saline -Foul Odor after Cleansing No -Bioengineered Tissue No -Bleeding Controlled with Pressure -Offloading No -Treatment Response Procedure Tolerated Well #3 LATERAL RLE -Time 08:31 -Correct Patient Yes -Correct Side, Site, Position Yes -Correct Procedure Yes -Procedure Performed Yes -Type of Procedure Debridement -Clinical Debridement Subcutaneous -Post Debridement Size (cm) - Length 1.3 -Post Debridement Size (cm) - Width 1.0 -Post Debridement Size (cm) - Depth 0.3 -Total Square Cm 1.30 -Wound/Ulcer Outcome Not Healed -Ulcer Cleansing Rinsed/ Irrigated with Saline -Foul Odor after Cleansing No -Bioengineered Tissue Yes -Type of bioengineered Tissue GRAFIX-Core -Expiration Date 06/01/20 -Product Lot Number [id number] -Percent Used 20 -Bleeding Controlled with Pressure -Offloading No -Treatment Response Procedure Tolerated Well #2 R Vaz -Time 08:43 -Correct Patient Yes -Correct Side, Site, Position Yes -Correct Procedure Yes -Procedure Performed Yes -Type of Procedure Debridement -Clinical Debridement Subcutaneous -Post Debridement Size (cm) - Length 3.5 -Post Debridement Size (cm) - Width 2.5 -Post Debridement Size (cm) - Depth 0.3 -Total Square Cm 8.75 -Wound/Ulcer Outcome Not Healed -Ulcer Cleansing Rinsed/ Irrigated with Saline -Foul Odor after Cleansing No -Bioengineered Tissue No -Type of bioengineered Tissue GRAFIX-Core -Expiration Date 06/01/20 -Product Lot Number [id number] -Percent Used 80 -Bleeding Controlled with Pressure -Offloading No -Treatment Response Procedure Tolerated Well [See Physician Procedure note for Specifics] Pain Scale: 0-10 Numeric [Pain] -Is Patient Pain Free? Yes Musculoskeletal: No Muscle Wasting Neurological: Cranial nerves II-XII grossly intact, Neuro grossly intact Psych/Mental Status: Normal Affect, Appropriate, Alert and oriented to time, place, person, mood and affect Debridement Note Post-Debridement Measurements/Treatment WC - Nurse 2 - General Ulcer CM Notes Start: 04/30/19 08:05 Freq: Status: Active Protocol: Activity Type Activity Date Activity User E-Sign Co-Sign Detail Recorded Client Recorded Date Recorded By Document 04/30/19 08:30 DV [id number] 04/30/19 08:32 DV Document 05/07/19 09:04 DV [id number] 05/07/19 09:07 DV Document 05/14/19 08:37 DV [id number] 05/14/19 08:40 DV Document 05/21/19 08:30 DV [id number] 05/21/19 08:45 DV 04/30/19 05/07/19 05/14/19 08:30 09:04 08:37 Wound Center Nurse 2 #4 R Lat Met Head -Time 09:05 08:38 -Correct Patient Yes Yes -Correct Side, Site, Position Yes Yes -Correct Procedure Yes Yes -Procedure Performed Yes Yes -Type of Procedure Debridement Debridement -Clinical Debridement Subcutaneous Subcutaneous -Post Debridement Size (cm) - Length 0.5 0.5 0.5 -Post Debridement Size (cm) - Width 0.3 0.2 0.6 -Post Debridement Size (cm) - Depth 0.2 0.2 0.2 -Total Square Cm 0.15 0.10 0.30 -Wound/Ulcer Outcome Not Healed Not Healed -Ulcer Cleansing Rinsed/ Rinsed/ Irrigated with Irrigated with Saline Saline -Foul Odor after Cleansing No No -Bioengineered Tissue No No -Bleeding Controlled with Pressure Pressure -Offloading No No -Treatment Response Procedure Procedure Tolerated Well Tolerated Well #3 LATERAL RLE -Time 09:06 08:39 -Correct Patient Yes Yes -Correct Side, Site, Position Yes Yes -Correct Procedure Yes Yes -Procedure Performed Yes Yes -Type of Procedure Debridement Debridement -Clinical Debridement Subcutaneous Subcutaneous -Post Debridement Size (cm) - Length 0.8 1.0 1.3 -Post Debridement Size (cm) - Width 0.7 1.0 1.3 -Post Debridement Size (cm) - Depth 0.3 0.2 0.3 -Total Square Cm 0.56 1.00 1.69 -Wound/Ulcer Outcome Not Healed Not Healed -Ulcer Cleansing Rinsed/ Irrigated with Saline -Foul Odor after Cleansing No -Bioengineered Tissue No -Type of bioengineered Tissue -Expiration Date -Product Lot Number -Percent Used -Bleeding Controlled with Pressure -Offloading No -Treatment Response Procedure Tolerated Well #2 R Vaz -Time 09:06 08:38 -Correct Patient Yes Yes -Correct Side, Site, Position Yes Yes -Correct Procedure Yes No -Procedure Performed Yes No -Type of Procedure Debridement -Clinical Debridement Subcutaneous -Post Debridement Size (cm) - Length 2.3 2.8 -Post Debridement Size (cm) - Width 2.0 2.5 -Post Debridement Size (cm) - Depth 0.3 0.2 -Total Square Cm 4.60 7.00 -Wound/Ulcer Outcome Not Healed Not Healed -Ulcer Cleansing Rinsed/ Irrigated with Saline -Foul Odor after Cleansing No -Bioengineered Tissue Yes -Type of bioengineered Tissue GRAFIX-Pime -Expiration Date -Product Lot Number -Percent Used -Bleeding Controlled with Pressure -Offloading No -Treatment Response Procedure Tolerated Well Pain Scale: 0-10 Numeric Is Patient Pain Free? Yes 01/28/20 08:30 Wound Center Nurse 2 #4 R Lat Met Head -Time 08:31 -Correct Patient Yes -Correct Side, Site, Position Yes -Correct Procedure Yes -Procedure Performed Yes -Type of Procedure Debridement -Clinical Debridement Subcutaneous -Post Debridement Size (cm) - Length 0.4 -Post Debridement Size (cm) - Width 0.5 -Post Debridement Size (cm) - Depth 0.2 -Total Square Cm 0.20 -Wound/Ulcer Outcome Not Healed -Ulcer Cleansing Rinsed/ Irrigated with Saline -Foul Odor after Cleansing No -Bioengineered Tissue No -Bleeding Controlled with Pressure -Offloading No -Treatment Response Procedure Tolerated Well #3 LATERAL RLE -Time 08:31 -Correct Patient Yes -Correct Side, Site, Position Yes -Correct Procedure Yes -Procedure Performed Yes -Type of Procedure Debridement -Clinical Debridement Subcutaneous -Post Debridement Size (cm) - Length 1.3 -Post Debridement Size (cm) - Width 1.0 -Post Debridement Size (cm) - Depth 0.3 -Total Square Cm 1.30 -Wound/Ulcer Outcome Not Healed -Ulcer Cleansing Rinsed/ Irrigated with Saline -Foul Odor after Cleansing No -Bioengineered Tissue Yes -Type of bioengineered Tissue GRAFIX-Core -Expiration Date 06/01/20 -Product Lot Number [id number] -Percent Used 20 -Bleeding Controlled with Pressure -Offloading No -Treatment Response Procedure Tolerated Well #2 R Vaz -Time 08:43 -Correct Patient Yes -Correct Side, Site, Position Yes -Correct Procedure Yes -Procedure Performed Yes -Type of Procedure Debridement -Clinical Debridement Subcutaneous -Post Debridement Size (cm) - Length 3.5 -Post Debridement Size (cm) - Width 2.5 -Post Debridement Size (cm) - Depth 0.3 -Total Square Cm 8.75 -Wound/Ulcer Outcome Not Healed -Ulcer Cleansing Rinsed/ Irrigated with Saline -Foul Odor after Cleansing No -Bioengineered Tissue No -Type of bioengineered Tissue GRAFIX-Core -Expiration Date 06/01/20 -Product Lot Number [id number] -Percent Used 80 -Bleeding Controlled with Pressure -Offloading No -Treatment Response Procedure Tolerated Well Pain Scale: 0-10 Numeric Is Patient Pain Free? Yes Laterality: Right - Lateral calf Type of Debridement: Excisional debridement Anesthesia Used: 5% Lidocaine Gel Depth: Down to and including healthy tissue, in the subcutaneous layer Percentage of wound debrided: 100 Instrument Used: 5mm curette Tissue Removed: Bioburden Severity: Fat Layer Exposed Amount of bleeding with debridement: Mild Bleeding Controlled with: Compression and gauze Patient tolerated procedure well Following a routine excisional debridement, a Grafix PL allograft was applied. A 3 cm x 4 cm allograft was selected. Upon removal from its sterile packaging, the graft was cut to the appropriate size and shape. Approximately 80% of the graft material was used for the larger ulceration. The remaining 20% was applied to the smaller of the 2 right lateral calf ulcerations. Once the grafts were placed, Adaptic Touch was applied, and anchored in place using Steri-Strips. Dry sterile gauze dressing was placed. The procedure was well-tolerated. Assessment/Plan Active Problems Traumatic open wound of lower leg (Chronic) Leg swelling (Chronic) Edema of leg (Chronic) Morbid obesity with BMI of 45.0-49.9, adult (Chronic) Diabetic foot wound, [place] Grade 1 (Chronic) Ulcer of foot due to diabetes (Chronic) Assessment: This is a 58-year-old female who presented with traumatic wounds on the right lower extremity, of several months duration. We have been using collagen hydrogel topically to the wound and callus overlying the bunion on the right foot. Collagen hydrogel has significantly softened this tissue, allowing serial debridements to eliminate much of the callus tissue. This appears to be pressure related due to poor fitting shoes. A noninvasive lower extremity arterial study performed about 1 year ago was normal, revealing triphasic waveforms at ankle level bilaterally, normal resting ankle?brachial indices bilaterally, and normal digital-brachial indices bilaterally. Recent laboratory studies have been obtained, dated February 22, 2019, with results as follows: White blood count 6.2, hemoglobin 14.1, hematocrit 43.4, platelets 218,000, glucose 143, sodium 137, potassium 4.3, chloride 100, BUN 18, creatinine 0.80, calcium 9.5, total protein 6.6, albumin 3.6, hemoglobin A1c 8.3. Recent cultures were positive for Leclercia adecoxylata, Staphlococcus lugdunensis, and Corynebacterium amycolatum. The patient has been started on Augmentin 875 mg p.o. twice daily for a total of 10 days, which has been completed. Plan: Patient has been counseled as to the appropriate foot care necessary in diabetic patients. We are too continue the use of a postop shoe for offloading relative to the ulceration of the right foot. She has also obtained new footwear, which is appropriate and no longer applying pressure to pressure points of her feet. Patient has been advised to optimize her glycemic control. Adequate nutrition has been advised. We are to continue the use of collagen hydrogel topically relative to the ulceration of the right foot. The collagen hydrogel has resulted in significant improvement, allowing for debridement and removal of the preponderance of the callus tissue surrounding the ulceration. This has been a major step forward. A Grafix PL allograft has been placed on the 2 wounds on the right calf. This represents the second application of an allograft. The allograft will be left in place, undisturbed, until the patient's return visit in 1 week. At that time, it is envisioned that additional allografts will be placed serially. The patient is to return in 1 week for reassessment. The patient is to continue wearing her graduated compression stockings of 20 to 30 mmHg compression on a daily basis. The patient is to continue elevating her legs as much as possible. She is to avoid prolonged idle sitting. The patient has been encouraged to assure adequate nutrition. Optimizing glycemic control has also been advised. Weight loss has also been recommended. We anticipate the repeat use of Grafix PL at subsequent visits. Influenza vaccine was not administered today. The patient is not a smoker. Patient weighs 265 pounds. She stands 5 feet 4 inches tall. Her BMI is 45.5, which places her in a class III category. Weight loss has been recommended, and collaboration with the patient's primary care physician has been recommended.
== END 2019-05-24 23:59 ==
LOC: WC 08:00
PROVIDERS: Family Provider Nurse Practitioner Primary Care; PCP Nurse Practitioner Primary Care; Referring Provider Surgery; Visit Provider Surgery
DX: E11.621 Type 2 diabetes mellitus with foot ulcer (principal); L97.512 Non-pressure chronic ulcer of other part of right foot with fat layer exposed; L97.212 Non-pressure chronic ulcer of right calf with fat layer exposed; R60.0 Localized edema; M79.89 Other specified soft tissue disorders; E66.01 Morbid (severe) obesity due to excess calories; J44.9 Chronic obstructive pulmonary disease, unspecified; I25.10 Atherosclerotic heart disease of native coronary artery without angina pectoris; M51.16 Intervertebral disc disorders with radiculopathy, lumbar region; M21.611 Bunion of right foot; E11.622 Type 2 diabetes mellitus with other skin ulcer; S81.801D Unspecified open wound, right lower leg, subsequent encounter; W22.8XXD Striking against or struck by other objects, subsequent encounter; Z68.42 Body mass index [BMI] 45.0-49.9, adult; Z71.3 Dietary counseling and surveillance; Z87.891 Personal history of nicotine dependence; Z79.4 Long term (current) use of insulin; Z79.899 Other long term (current) drug therapy
CPT/HCPCS: 11042; 15271; Q4132; Q4133

== ENCOUNTER 2019-06-18 08:00 | Outpatient (RCR) | payer OTHER, SELFPAY ==
[2019-05-25 00:52] VITALS: BP 139/68; PULSE 69; RESP 18; TEMP 36.2
[2019-05-28 08:11] VITALS: BP 127/65; PULSE 98; RESP 20; TEMP 36; BMI 44.9
--- NOTE | 2019-05-28 08:59 | PCM.WC.HP ---
(1) Traumatic open wound of lower leg Status: Chronic Current Visit: Yes Qualifiers: Encounter type: subsequent encounter Laterality: right Qualified Code(s): S81.801D - Unspecified open wound, right lower leg, subsequent encounter Code(s): S81.809A - Unspecified open wound, unspecified lower leg, initial encounter (2) Leg swelling Status: Chronic Current Visit: Yes Code(s): M79.89 - Other specified soft tissue disorders (3) Edema of leg Status: Chronic Current Visit: Yes Code(s): R60.0 - Localized edema (4) Diabetes mellitus Status: Chronic Current Visit: No Code(s): E11.9 - Type 2 diabetes mellitus without complications (5) Morbid obesity with BMI of 45.0-49.9, adult Status: Chronic Current Visit: No Code(s): E66.01 - Morbid (severe) obesity due to excess calories; Z68.42 - Body mass index (BMI) 45.0-49.9, adult (6) COPD (chronic obstructive pulmonary disease) Status: Chronic Current Visit: No Code(s): J44.9 - Chronic obstructive pulmonary disease, unspecified (7) Coronary artery arteriosclerosis Status: Chronic Current Visit: No Code(s): I25.10 - Atherosclerotic heart disease of [place] coronary artery without angina pectoris (8) Diabetic foot wound, Hubbard Grade 1 Status: Chronic Current Visit: Yes (9) Ulcer of foot due to diabetes Status: Chronic Current Visit: Yes Qualifiers: Diabetic foot ulcer location: midfoot Code(s): E11.621 - Type 2 diabetes mellitus with foot ulcer; L97.509 - Non-pressure chronic ulcer of other part of unspecified foot with unspecified severity (10) Lumbar disc disease with radiculopathy Status: Chronic Current Visit: No Code(s): M51.16 - Intervertebral disc disorders with radiculopathy, lumbar region History of Present Illness Date of Service: 05/28/19 Chief Complaint: Traumatic open wound of the right lower extremity, Diabetic right foot wound - Hubbard Grade 1 History of Wound: This is a 58-year-old diabetic female who has been previously treated in our facility for a traumatic wound on the left lower extremity. She presented this time with wounds in her right lower extremity. There are 2 wounds involving the right calf, which are traumatic in origin. They are located on the right anterior tibial surface and on the right lateral calf. These occurred due to impact with a car door in December 2018. Patient has been using collagen hydrogel topically. She also has a more recent ulceration on the right foot, located overlying a bunion, which has been present for only several weeks. According the patient, this has occurred as a result of a new pair of sneakers, which she obtained at a retail establishment. The patient is known to be diabetic, and her blood sugars appear to be reasonably well controlled, based upon the patient's account. The previous wound in the left lower extremity has remained healed. The patient has continued to implement conservative treatment measures previously recommended, including leg elevation, avoidance of idle standing and sitting, active lifestyle, attempts at weight loss, and the use of graduated compression stockings on a daily basis, of 20 to 30 mmHg compression. Past Medical History Past Medical History: Chronic Problems Traumatic open wound of lower leg (Chronic) Leg swelling (Chronic) Edema of leg (Chronic) Diabetes mellitus (Chronic) Morbid obesity with BMI of 45.0-49.9, adult (Chronic) COPD (chronic obstructive pulmonary disease) (Chronic) Coronary artery arteriosclerosis (Chronic) Diabetic foot wound, Hubbard Grade 1 (Chronic) Ulcer of foot due to diabetes (Chronic) Lumbar disc disease with radiculopathy (Chronic) Surgical History: - - The patient has a history of coronary artery stent placement. She has undergone open reduction and internal fixation of a left tibia fracture. She underwent right meniscus repair in the past. She is a Ab0. Allergies/Adverse Reactions: Allergies bee venom protein (honey bee) Adverse Reaction (Verified 03/19/19 09:02) Swelling Home Medications: Ambulatory Orders Medication Instructions Recorded Aspirin E.C. [Ecotrin] 81 mg PO DAILY@0800 09/03/13 Hydrocodone/Acetaminophen [Vicodin 1 - 2 tablet PO Q6H PRN PRN 09/03/13 5-300 mg Tablet] Lisinopril 10 mg PO DAILY 09/03/13 Metformin [Metformin HCl] 1,000 mg PO BID 09/03/13 Metoprolol Tartrate 50 mg PO DAILY 09/03/13 Dulaglutide [Trulicity] 0.75 mg SQ 01/02/18 Fluticasone/Vilanterol [Breo 1 each IH 01/02/18 Ellipta 200-25 Mcg INH] Insulin Glargine,Hum.rec.anlog 56 unit BID 01/02/18 [Lantus] Sitagliptin Phosphate [Januvia] 25 mg PO DAILY 01/02/18 Tiotropium [place] [Spiriva] 18 mcg IH 01/02/18 - Family History Paternal - - The patient's father at the age of 78 with history of chronic obstructive pulmonary disease. The patient's mother at the age of 84 with history of chronic obstructive pulmonary disease. Smoking Status: Former smoker Tobacco Use: Non-smoker Review of Systems Constitutional: Denies: Chills, Fever, Weight Change Eyes: Denies: Pain, Vision Change HEENT: Denies: Difficulty Hearing, Difficulty Swallowing, Sinus Congestion Cardiovascular: Denies: Chest Pain, Palpitations Respiratory: Denies: Cough, Shortness of Breath Gastrointestinal: Denies: Diarrhea, Nausea, Vomiting Genitourinary: Denies: Dysuria, Hematuria Endocrine: Denies: Heat/ Cold Intolerance, Polydipsia, Polyuria Hematologic/ Lymphatic: Denies: Easy Bruising, Easy Bleeding - Physical Exam Vital Signs Temp Pulse Resp BP 96.8 F L 98 20 H 127/65 H 05/28/19 08:11 05/28/19 08:11 05/28/19 08:11 05/28/19 08:11 General: Alert, Oriented x3, Cooperative, No apparent distress, Well developed, Well nourished, - - The patient is morbidly obese HEENT: Atraumatic, PERRLA, EOMI, Normocephalic Oral: Moist Mucosa Neck: No JVD Lungs: Normal air movement Abdomen: Non-Distended, Obese Extremities: No clubbing, No cyanosis, No edema, No Calf Tenderness, - - No significant swelling or edema in the patient's right lower extremity. The traumatic wounds on the right anterolateral calf persist. Dimensions are documented elsewhere. There is a moderate amount of bioburden. Significant erythema surround these wounds. Swab cultures have been obtained, for aerobic and anaerobic growth. The ulceration on the right foot, overlying the right bunion, appears generally healthy. There is no sign of infection or cellulitis at the site.'s are documented elsewhere. There remains a small amount of callus and hypertrophic epidermal tissue. Wound Measurements and Assessment WC - Nurse 1 - General Ulcer Measurement Start: 02/04/20 08:11 Freq: Status: Active Protocol: Activity Type Activity Date Activity User E-Sign Co-Sign Detail Recorded Client Recorded Date Recorded By Document 05/28/19 08:11 MARCUS [id number] 05/28/19 08:21 MARCUS 05/28/19 08:11 Wound Center Nurse 1 [Ulcer Assessment] #4 R Lat Met Head -Current Size (cm) - Length 0.2 -Current Size (cm) - Width 0.2 -Current Size (cm) - Depth 0.2 -Total Square Cm 0.04 -Photo Taken No -Exudate Amt None Present -Wound Margin Thickened -Granulation Amt Small (1-33%) -Granulation Quality Frederika -Necrosis Amt None Present (0 %) -Structure Exposed N/A -Texture (Ketty-wound Skin Appearance) Callus -Moisture (Ketty-wound Skin Appearance Dry/Scaly ) -Color (Ketty-wound Skin Appearance) No Abnormality -Temperature (Ketty-wound Skin No Abnormality Appearance) (Pt Warm) -Tenderness on Palpation (Ketty-wound Yes Skin Appearance) -Ulcer Cleansing Wound Cleanser -Foul Odor after Cleansing No -Anesthetic Used 5% Lidocaine Gel #3 LATERAL RLE -Current Size (cm) - Length 1 -Current Size (cm) - Width 1 -Current Size (cm) - Depth 0.2 -Total Square Cm 1 -Photo Taken No -Exudate Amt Small -Exudate Type Serosanguineous -Wound Margin Distinct, Outline Attached -Granulation Amt Large (67-100%) -Granulation Quality Red -Necrosis Amt Small (1-33%) -Necrotic Tissue Type Adherent Slough -Structure Exposed N/A -Texture (Ketty-wound Skin Appearance) Scarring -Moisture (Ketty-wound Skin Appearance Dry/Scaly ) -Color (Ketty-wound Skin Appearance) Rubor -Temperature (Ketty-wound Skin No Abnormality Appearance) (Pt Warm) -Tenderness on Palpation (Ketty-wound No Skin Appearance) -Ulcer Cleansing Wound Cleanser -Foul Odor after Cleansing No -Anesthetic Used 5% Lidocaine Gel #2 R Vaz -Current Size (cm) - Length 2.8 -Current Size (cm) - Width 2 -Current Size (cm) - Depth 0.3 -Total Square Cm 5.6 -Photo Taken No -Exudate Amt Small -Exudate Type Serosanguineous -Wound Margin Distinct, Outline Attached -Granulation Amt Large (67-100%) -Granulation Quality Red -Necrosis Amt Small (1-33%) -Necrotic Tissue Type Adherent Slough -Texture (Ketty-wound Skin Appearance) Scarring -Moisture (Ketty-wound Skin Appearance No Abnormality ) -Color (Ketty-wound Skin Appearance) Erythema -Temperature (Ketty-wound Skin No Abnormality Appearance) (Pt Warm) -Tenderness on Palpation (Ketty-wound Yes Skin Appearance) -Ulcer Cleansing Wound Cleanser -Foul Odor after Cleansing No -Anesthetic Used 5% Lidocaine Gel [Edema Assessment] -Right Calf (cm) 41.5 -Right Ankle (cm) 21.2 Musculoskeletal: No Muscle Wasting Neurological: Cranial nerves II-XII grossly intact, Neuro grossly intact Psych/Mental Status: Normal Affect, Appropriate, Alert and oriented to time, place, person, mood and affect Debridement Note Laterality: Right - Anterolateral calf Type of Debridement: Excisional debridement Anesthesia Used: 5% Lidocaine Gel Depth: Down to and including healthy tissue, in the subcutaneous layer Percentage of wound debrided: 100 Instrument Used: 5mm curette Tissue Removed: Bioburden and nonviable tissue Severity: Fat Layer Exposed Amount of bleeding with debridement: Mild Bleeding Controlled with: Compression and gauze Patient tolerated procedure well - Additional Wound Laterality: Right - Medial foot Type of Debridement: Excisional debridement Anesthesia Used: 5% Lidocaine Gel Depth: Down to and including healthy tissue, in the subcutaneous layer Percentage of wound debrided: 100 Instrument Used: 5mm curette Tissue Removed: Bioburden and callus tissue Severity: Fat Layer Exposed Amount of bleeding with debridement: Mild Bleeding Controlled with: Compression and gauze Patient tolerated procedure: Patient tolerated procedure well Assessment/Plan Active Problems Traumatic open wound of lower leg (Chronic) Leg swelling (Chronic) Edema of leg (Chronic) Diabetic foot wound, Hubbard Grade 1 (Chronic) Ulcer of foot due to diabetes (Chronic) Assessment: This is a 58-year-old female who presented with traumatic wounds on the right lower extremity, of several months duration. We have been using collagen hydrogel topically to the wound and callus overlying the bunion on the right foot. Collagen hydrogel has significantly softened this tissue, allowing serial debridements to eliminate much of the callus tissue. This appears to be pressure related due to poor fitting shoes. A noninvasive lower extremity arterial study performed about 1 year ago was normal, revealing triphasic waveforms at ankle level bilaterally, normal resting ankle?brachial indices bilaterally, and normal digital-brachial indices bilaterally. Recent laboratory studies have been obtained, dated February 22, 2019, with results as follows: White blood count 6.2, hemoglobin 14.1, hematocrit 43.4, platelets 218,000, glucose 143, sodium 137, potassium 4.3, chloride 100, BUN 18, creatinine 0.80, calcium 9.5, total protein 6.6, albumin 3.6, hemoglobin A1c 8.3. Recent cultures were positive for Leclercia adecoxylata, Staphlococcus lugdunensis, and Corynebacterium amycolatum. The patient has been started on Augmentin 875 mg p.o. twice daily for a total of 10 days, which has been completed. Plan: Patient has been counseled as to the appropriate foot care necessary in diabetic patients. We are too continue the use of a postop shoe for offloading relative to the ulceration of the right foot. She has also obtained new footwear, which is appropriate and no longer applying pressure to pressure points of her feet. Patient has been advised to optimize her glycemic control. Adequate nutrition has been advised. We are to continue the use of collagen hydrogel topically relative to the ulceration of the right foot. The collagen hydrogel has resulted in significant improvement, allowing for debridement and removal of the preponderance of the callus tissue surrounding the ulceration. This has been a major step forward. A Grafix PL allograft was placed on the 2 wounds on the right calf last week. This represents the second application of an allograft. Upon the patient's return visit today, it is noted that there is significant erythema and cellulitic changes surrounding the wounds on the right anterolateral calf. Swab cultures have been obtained, for aerobic and anaerobic growth. We will await these results. In the interim, we are to implement the use of MediHoney, which will be applied topically on a daily basis. The patient is to return in 1 week for reassessment. The patient is to continue wearing her graduated compression stockings of 20 to 30 mmHg compression on a daily basis. The patient is to continue elevating her legs as much as possible. She is to avoid prolonged idle sitting. The patient has been encouraged to assure adequate nutrition. Optimizing glycemic control has also been advised. Weight loss has also been recommended. We anticipate the repeat use of Grafix PL at subsequent visits. Influenza vaccine was not administered today. The patient is not a smoker. Patient weighs 265 pounds. She stands 5 feet 4 inches tall. Her BMI is 45.5, which places her in a class III category. Weight loss has been recommended, and collaboration with the patient's primary care physician has been recommended.
[2019-06-04 08:08] VITALS: BP 138/84; PULSE 107; RESP 16; TEMP 36.4; BMI 44.9
--- NOTE | 2019-06-04 08:31 | HP.PCM_ITS ---
(1) Traumatic open wound of lower leg Status: Chronic Current Visit: Yes Qualifiers: Encounter type: subsequent encounter Laterality: right Qualified Code(s): S81.801D - Unspecified open wound, right lower leg, subsequent encounter Code(s): S81.809A - Unspecified open wound, unspecified lower leg, initial encounter (2) Leg swelling Status: Chronic Current Visit: Yes Code(s): M79.89 - Other specified soft tissue disorders (3) Edema of leg Status: Chronic Current Visit: Yes Code(s): R60.0 - Localized edema (4) Diabetes mellitus Status: Chronic Current Visit: No Code(s): E11.9 - Type 2 diabetes mellitus without complications (5) Morbid obesity with BMI of 45.0-49.9, adult Status: Chronic Current Visit: No Code(s): E66.01 - Morbid (severe) obesity due to excess calories; Z68.42 - Body mass index (BMI) 45.0-49.9, adult (6) COPD (chronic obstructive pulmonary disease) Status: Chronic Current Visit: No Code(s): J44.9 - Chronic obstructive pulmonary disease, unspecified (7) Coronary artery arteriosclerosis Status: Chronic Current Visit: No Code(s): I25.10 - Atherosclerotic heart disease of [place] coronary artery without angina pectoris (8) Diabetic foot wound, Hubbard Grade 1 Status: Chronic Current Visit: Yes (9) Ulcer of foot due to diabetes Status: Chronic Current Visit: Yes Qualifiers: Diabetic foot ulcer location: midfoot Code(s): E11.621 - Type 2 diabetes mellitus with foot ulcer; L97.509 - Non- pressure chronic ulcer of other part of unspecified foot with unspecified severity (10) Lumbar disc disease with radiculopathy Status: Chronic Current Visit: No Code(s): M51.16 - Intervertebral disc disorders with radiculopathy, lumbar region History of Present Illness Date of Service: 06/04/19 Chief Complaint: Traumatic open wound of the right lower extremity, Diabetic right foot wound - Hubbard Grade 1 History of Wound: This is a 58-year-old diabetic female who has been previously treated in our facility for a traumatic wound on the left lower extremity. She presented this time with wounds in her right lower extremity. There are 2 wounds involving the right calf, which are traumatic in origin. They are located on the right anterior tibial surface and on the right lateral calf. These occurred due to impact with a car door in December 2018. Patient has been using collagen hydrogel topically. She also has a more recent ulceration on the right foot, located overlying a bunion, which has been present for only several weeks. According the patient, this has occurred as a result of a new pair of sneakers, which she obtained at a retail establishment. The patient is known to be diabetic, and her blood sugars appear to be reasonably well controlled, based upon the patient's account. The previous wound in the left lower extremity has remained healed. The patient has continued to implement conservative treatment measures previously recommended, including leg elevation, avoidance of idle standing and sitting, active lifestyle, attempts at weight loss, and the use of graduated compression stockings on a daily basis, of 20 to 30 mmHg compression. Past Medical History Past Medical History: Chronic Problems Traumatic open wound of lower leg (Chronic) Leg swelling (Chronic) Edema of leg (Chronic) Diabetes mellitus (Chronic) Morbid obesity with BMI of 45.0-49.9, adult (Chronic) COPD (chronic obstructive pulmonary disease) (Chronic) Coronary artery arteriosclerosis (Chronic) Diabetic foot wound, Hubbard Grade 1 (Chronic) Ulcer of foot due to diabetes (Chronic) Lumbar disc disease with radiculopathy (Chronic) Surgical History: - - The patient has a history of coronary artery stent placement. She has undergone open reduction and internal fixation of a left tibia fracture. She underwent right meniscus repair in the past. She is a Ab0. Allergies/Adverse Reactions: Allergies bee venom protein (honey bee) Adverse Reaction (Verified 03/19/19 09:02) Swelling Home Medications: Ambulatory Orders Medication Instructions Recorded Aspirin E.C. [Ecotrin] 81 mg PO DAILY@0800 09/03/13 Hydrocodone/Acetaminophen [Vicodin 1 - 2 tablet PO Q6H PRN PRN 09/03/13 5-300 mg Tablet] Lisinopril 10 mg PO DAILY 09/03/13 Metformin [Metformin HCl] 1,000 mg PO BID 09/03/13 Metoprolol Tartrate 50 mg PO DAILY 09/03/13 Dulaglutide [Trulicity] 0.75 mg SQ 01/02/18 Fluticasone/Vilanterol [Breo 1 each IH 01/02/18 Ellipta 200-25 Mcg INH] Insulin Glargine,Hum.rec.anlog 56 unit BID 01/02/18 [Lantus] Sitagliptin Phosphate [Januvia] 25 mg PO DAILY 01/02/18 Tiotropium [place] [Spiriva] 18 mcg IH 01/02/18 - Family History Paternal - - The patient's father at the age of 78 with history of chronic obstructive pulmonary disease. The patient's mother at the age of 84 with history of chronic obstructive pulmonary disease. Smoking Status: Former smoker Tobacco Use: Non-smoker Review of Systems Constitutional: Denies: Chills, Fever, Weight Change Eyes: Denies: Pain, Vision Change HEENT: Denies: Difficulty Hearing, Difficulty Swallowing, Sinus Congestion Cardiovascular: Denies: Chest Pain, Palpitations Respiratory: Denies: Cough, Shortness of Breath Gastrointestinal: Denies: Diarrhea, Nausea, Vomiting Genitourinary: Denies: Dysuria, Hematuria Endocrine: Denies: Heat/ Cold Intolerance, Polydipsia, Polyuria Hematologic/ Lymphatic: Denies: Easy Bruising, Easy Bleeding - Physical Exam Vital Signs Temp Pulse Resp BP 97.6 F L 107 H 16 138/84 H 06/04/19 08:08 06/04/19 08:08 06/04/19 08:08 06/04/19 08:08 General: Alert, Oriented x3, Cooperative, No apparent distress, Well developed, Well nourished, - - The patient is obese. HEENT: Atraumatic, PERRLA, EOMI, Normocephalic Oral: Moist Mucosa Neck: No JVD Lungs: Normal air movement Abdomen: Non-Distended Extremities: No clubbing, No cyanosis, No edema, No Calf Tenderness, - - There is no significant swelling or edema in the patient's right lower extremity. The tandem ulcerations on the right anterolateral calf persist. They are a little changed in size or appearance. Mild raul-ulcer erythema persists. Dimensions are documented elsewhere. The ulceration overlying the right bunion persists as well, with some small amount of remaining callus. The dimensions of this ulceration are also documented elsewhere. There is no sign of infection or cellulitis involving the right foot ulceration. There does appear to be some suspicion of cellulitis involving the ulcerations on the right anterolateral calf, for which recent culture was positive, demonstrating Staphylococcus pseudo-intermedius and Corynebacterium species. Wound Measurements and Assessment WC - Nurse 1 - General Ulcer Measurement Start: 05/28/19 08:11 Freq: Status: Active Protocol: Activity Type Activity Date Activity User E-Sign Co-Sign Detail Recorded Client Recorded Date Recorded By Document 06/04/19 08:08 JOSE [id number] 06/04/19 08:13 JOSE 06/04/19 08:08 Wound Center Nurse 1 [Ulcer Assessment] #4 R Lat Met Head -Combined with other wound No -Current Size (cm) - Length 0.3 -Current Size (cm) - Width 0.3 -Total Square Cm 0.09 -Photo Taken No -Epithelialization Small 1-33% -Tunneling No -Undermining/Tunneling No -Circular Undermining No -Exudate Amt Small -Exudate Type Serosanguineous -Wound Margin Flat & Intact -Granulation Amt Large (67-100%) -Granulation Quality Red -Slough/Fibrin Yes -Necrosis Amt Small (1-33%) -Necrotic Tissue Type Adherent Slough -Structure Exposed N/A -Texture (Raul-wound Skin Appearance) Assessed,Callus -Moisture (Raul-wound Skin Appearance Assessed ) -Color (Raul-wound Skin Appearance) Assessed -Temperature (Raul-wound Skin No Abnormality Appearance) (Pt Warm) -Tenderness on Palpation (Raul-wound No Skin Appearance) -Ulcer Cleansing Rinsed/ Irrigated with Saline -Foul Odor after Cleansing No -Anesthetic Used 4% Lidocaine Solution #3 LATERAL RLE -Combined with other wound No -Current Size (cm) - Length 1.2 -Current Size (cm) - Width 1.2 -Current Size (cm) - Depth 0.3 -Total Square Cm 1.44 -Photo Taken No -Epithelialization None Present -Tunneling No -Undermining/Tunneling No -Circular Undermining No -Exudate Amt Small -Exudate Type Serosanguineous -Wound Margin Flat & Intact -Granulation Amt Medium (34-66%) -Granulation Quality Red -Slough/Fibrin Yes -Necrosis Amt Medium (34-66%) -Necrotic Tissue Type Adherent Slough -Structure Exposed N/A -Texture (Raul-wound Skin Appearance) Assessed, Localized Edema -Moisture (Raul-wound Skin Appearance Assessed,Dry/ ) Scaly -Color (Raul-wound Skin Appearance) Assessed -Temperature (Raul-wound Skin No Abnormality Appearance) (Pt Warm) -Tenderness on Palpation (Raul-wound No Skin Appearance) -Ulcer Cleansing Rinsed/ Irrigated with Saline -Foul Odor after Cleansing No -Anesthetic Used 4% Lidocaine Solution #2 R Vaz -Combined with other wound No -Current Size (cm) - Length 2.8 -Current Size (cm) - Width 2.5 -Current Size (cm) - Depth 0.3 -Total Square Cm 7.00 -Photo Taken No -Epithelialization Small 1-33% -Tunneling No -Undermining/Tunneling No -Circular Undermining No -Exudate Amt Medium -Exudate Type Serosanguineous -Wound Margin Flat & Intact -Granulation Amt Medium (34-66%) -Granulation Quality [place],Red -Slough/Fibrin Yes -Necrosis Amt Medium (34-66%) -Necrotic Tissue Type Adherent Slough -Structure Exposed N/A -Texture (Raul-wound Skin Appearance) Assessed, Localized Edema -Moisture (Raul-wound Skin Appearance Assessed,Dry/ ) Scaly -Color (Raul-wound Skin Appearance) Assessed, Hemosiderin Staining -Temperature (Raul-wound Skin No Abnormality Appearance) (Pt Warm) -Tenderness on Palpation (Raul-wound No Skin Appearance) -Ulcer Cleansing Rinsed/ Irrigated with Saline -Foul Odor after Cleansing No -Anesthetic Used 4% Lidocaine Solution [Edema Assessment] -Lower Limb Edema Present Yes -Right Calf (cm) 39.8 -Right Ankle (cm) 25.0 Musculoskeletal: No Muscle Wasting Neurological: Cranial nerves II-XII grossly intact, Neuro grossly intact Psych/Mental Status: Normal Affect, Appropriate, Alert and oriented to time, place, person, mood and affect Debridement Note Post-Debridement Measurements/Treatment WC - Nurse 2 - General Ulcer CM Notes Start: 05/28/19 08:11 Freq: Status: Active Protocol: Activity Type Activity Date Activity User E-Sign Co-Sign Detail Recorded Client Recorded Date Recorded By Document 05/28/19 08:45 DV [id number] 05/28/19 09:00 DV 05/28/19 08:45 Wound Center Nurse 2 #4 R Lat Met Head -Time 08:46 -Correct Patient Yes -Correct Side, Site, Position Yes -Correct Procedure Yes -Procedure Performed Yes -Type of Procedure Debridement -Clinical Debridement Subcutaneous -Post Debridement Size (cm) - Length 0.3 -Post Debridement Size (cm) - Width 0.3 -Post Debridement Size (cm) - Depth 0.2 -Total Square Cm 0.09 -Wound/Ulcer Outcome Not Healed -Ulcer Cleansing Rinsed/ Irrigated with Saline -Foul Odor after Cleansing No -Bioengineered Tissue No -Bleeding Controlled with Pressure -Offloading No -Treatment Response Procedure Tolerated Well #3 LATERAL RLE -Time 08:48 -Correct Patient Yes -Correct Side, Site, Position Yes -Correct Procedure Yes -Procedure Performed Yes -Type of Procedure Debridement -Clinical Debridement Subcutaneous -Post Debridement Size (cm) - Length 1.2 -Post Debridement Size (cm) - Width 1.3 -Post Debridement Size (cm) - Depth 0.3 -Total Square Cm 1.56 -Wound/Ulcer Outcome Not Healed -Ulcer Cleansing Rinsed/ Irrigated with Saline -Foul Odor after Cleansing No -Bioengineered Tissue No -Bleeding Controlled with Pressure -Offloading No -Treatment Response Procedure Tolerated Well #2 R Vaz -Time 08:49 -Correct Patient Yes -Correct Side, Site, Position Yes -Correct Procedure Yes -Procedure Performed Yes -Type of Procedure Debridement -Clinical Debridement Subcutaneous -Post Debridement Size (cm) - Length 3.0 -Post Debridement Size (cm) - Width 2.3 -Post Debridement Size (cm) - Depth 0.2 -Total Square Cm 6.90 -Wound/Ulcer Outcome Not Healed -Ulcer Cleansing Rinsed/ Irrigated with Saline -Foul Odor after Cleansing No -Bioengineered Tissue No -Bleeding Controlled with Pressure -Offloading No -Treatment Response Procedure Tolerated Well Pain Scale: 0-10 Numeric Is Patient Pain Free? Yes Laterality: Right - [place]-lateral calf Type of Debridement: Excisional debridement Anesthesia Used: 5% Lidocaine Gel Depth: Down to and including healthy tissue, in the subcutaneous layer Percentage of wound debrided: 100 Instrument Used: 5mm curette Tissue Removed: Bioburden and nonviable tissue Severity: Fat Layer Exposed Amount of bleeding with debridement: Mild Bleeding Controlled with: Compression and gauze Patient tolerated procedure well - Additional Wound Laterality: Right - Medial foot, overlying bunion Type of Debridement: Excisional debridement Anesthesia Used: 5% Lidocaine Gel Depth: Down to and including healthy tissue, in the subcutaneous layer Percentage of wound debrided: 100 Instrument Used: 5mm curette Tissue Removed: Bioburden, nonviable tissue, and callus material Severity: Fat Layer Exposed Amount of bleeding with debridement: Mild Bleeding Controlled with: Compression and gauze Patient tolerated procedure: Patient tolerated procedure well Assessment/Plan Active Problems Traumatic open wound of lower leg (Chronic) Leg swelling (Chronic) Edema of leg (Chronic) Diabetic foot wound, Hubbard Grade 1 (Chronic) Ulcer of foot due to diabetes (Chronic) Assessment: This is a 58-year-old female who presented with traumatic wounds on the right lower extremity, of several months duration. We have been using collagen hydrogel topically to the wound and callus overlying the bunion on the right foot. Collagen hydrogel has significantly softened this tissue, allowing serial debridements to eliminate much of the callus tissue. This appears to be pressure related due to poor fitting shoes. A noninvasive lower extremity arterial study performed about 1 year ago was normal, revealing triphasic waveforms at ankle level bilaterally, normal resting ankle?brachial indices bilaterally, and normal digital-brachial indices bilaterally. Recent laboratory studies have been obtained, dated February 22, 2019, with results as follows: White blood count 6.2, hemoglobin 14.1, hematocrit 43.4, platelets 218,000, glucose 143, sodium 137, potassium 4.3, chloride 100, BUN 18, creatinine 0.80, calcium 9.5, total protein 6.6, albumin 3.6, hemoglobin A1c 8.3. Recent cultures were positive for Staphylococcus pseudo-intermedius and Corynebacterium species. Based upon sensitivity results, the patient is to be started on Augmentin 875 mg twice daily for 10 days. Plan: Patient has been counseled as to the appropriate foot care necessary in diabetic patients. We are to continue the use of a postop shoe for offloading relative to the ulceration of the right foot. She has also obtained new footwear, which is appropriate and no longer applying pressure to pressure points of her feet. Patient has been advised to optimize her glycemic control. Adequate nutrition has been advised. We are to continue the use of collagen hydrogel topically relative to the ulceration of the right foot. The collagen hydrogel has resulted in significant improvement, allowing for debridement and removal of the preponderance of the callus tissue surrounding the ulceration. This has been a major step forward. Swab cultures have been obtained, and have been positive for Staphylococcus pseudointermedius and Corynebacterium species. Patient is to be started on Augmentin 875 mg p.o. twice daily for 10 days. We are to continue the use of MediHoney on the calf ulcerations, which will be applied topically on a daily basis. The patient is to return in 1 week for reassessment. The patient is to continue wearing her graduated compression stockings of 20 to 30 mmHg compression on a daily basis. The patient is to continue elevating her legs as much as possible. She is to avoid prolonged idle sitting. The patient has been encouraged to assure adequate nutrition. Optimizing glycemic control has also been advised. Weight loss has also been recommended. We anticipate the use of Grafix PL at subsequent visits, once the infection of the right calf ulcerations has been adequately treated. Influenza vaccine was not administered today. The patient is not a smoker. Patient weighs 265 pounds. She stands 5 feet 4 inches tall. Her BMI is 45.5, which places her in a class III category. Weight loss has been recommended, and collaboration with the patient's primary care physician has been recommended.
[2019-06-11 08:07] VITALS: BP 141/76; PULSE 113; RESP 20; TEMP 36.3; BMI 44.9
--- NOTE | 2019-06-11 09:05 | HP.PCM_ITS ---
(1) Traumatic open wound of lower leg Status: Chronic Current Visit: Yes Qualifiers: Encounter type: subsequent encounter Laterality: right Qualified Code(s): S81.801D - Unspecified open wound, right lower leg, subsequent encounter Code(s): S81.809A - Unspecified open wound, unspecified lower leg, initial encounter (2) Leg swelling Status: Chronic Current Visit: Yes Code(s): M79.89 - Other specified soft tissue disorders (3) Edema of leg Status: Chronic Current Visit: Yes Code(s): R60.0 - Localized edema (4) Diabetes mellitus Status: Chronic Current Visit: No Code(s): E11.9 - Type 2 diabetes mellitus without complications (5) Morbid obesity with BMI of 45.0-49.9, adult Status: Chronic Current Visit: No Code(s): E66.01 - Morbid (severe) obesity due to excess calories; Z68.42 - Body mass index (BMI) 45.0-49.9, adult (6) COPD (chronic obstructive pulmonary disease) Status: Chronic Current Visit: No Code(s): J44.9 - Chronic obstructive pulmonary disease, unspecified (7) Coronary artery arteriosclerosis Status: Chronic Current Visit: No Code(s): I25.10 - Atherosclerotic heart disease of [place] coronary artery without angina pectoris (8) Diabetic foot wound, Hubbard Grade 1 Status: Chronic Current Visit: Yes (9) Ulcer of foot due to diabetes Status: Chronic Current Visit: Yes Qualifiers: Diabetic foot ulcer location: midfoot Code(s): E11.621 - Type 2 diabetes mellitus with foot ulcer; L97.509 - Non- pressure chronic ulcer of other part of unspecified foot with unspecified severity (10) Lumbar disc disease with radiculopathy Status: Chronic Current Visit: No Code(s): M51.16 - Intervertebral disc disorders with radiculopathy, lumbar region History of Present Illness Date of Service: 06/11/19 Chief Complaint: Traumatic open wound of the right lower extremity, Diabetic right foot wound - Hubbard Grade 1 History of Wound: This is a 58-year-old diabetic female who has been previously treated in our facility for a traumatic wound on the left lower extremity. She presented this time with wounds in her right lower extremity. There are 2 wounds involving the right calf, which are traumatic in origin. They are located on the right anterior tibial surface and on the right lateral calf. These occurred due to impact with a car door in December 2018. Patient has been using collagen hydrogel topically. She also has a more recent ulceration on the right foot, located overlying a bunion, which has been present for only several weeks. According the patient, this has occurred as a result of a new pair of sneakers, which she obtained at a retail establishment. The patient is known to be diabetic, and her blood sugars appear to be reasonably well controlled, based upon the patient's account. The previous wound in the left lower extremity has remained healed. The patient has continued to implement conservative treatment measures previously recommended, including leg elevation, avoidance of idle standing and sitting, active lifestyle, attempts at weight loss, and the use of graduated compression stockings on a daily basis, of 20 to 30 mmHg compression. Past Medical History Past Medical History: Chronic Problems Traumatic open wound of lower leg (Chronic) Leg swelling (Chronic) Edema of leg (Chronic) Diabetes mellitus (Chronic) Morbid obesity with BMI of 45.0-49.9, adult (Chronic) COPD (chronic obstructive pulmonary disease) (Chronic) Coronary artery arteriosclerosis (Chronic) Diabetic foot wound, Hubbard Grade 1 (Chronic) Ulcer of foot due to diabetes (Chronic) Lumbar disc disease with radiculopathy (Chronic) Surgical History: - - The patient has a history of coronary artery stent placement. She has undergone open reduction and internal fixation of a left tibia fracture. She underwent right meniscus repair in the past. She is a Ab0. Allergies/Adverse Reactions: Allergies bee venom protein (honey bee) Adverse Reaction (Verified 03/19/19 09:02) Swelling Home Medications: Ambulatory Orders Medication Instructions Recorded Aspirin E.C. [Ecotrin] 81 mg PO DAILY@0800 09/03/13 Hydrocodone/Acetaminophen [Vicodin 1 - 2 tablet PO Q6H PRN PRN 09/03/13 5-300 mg Tablet] Lisinopril 10 mg PO DAILY 09/03/13 Metformin [Metformin HCl] 1,000 mg PO BID 09/03/13 Metoprolol Tartrate 50 mg PO DAILY 09/03/13 Dulaglutide [Trulicity] 0.75 mg SQ 01/02/18 Fluticasone/Vilanterol [Breo 1 each IH 01/02/18 Ellipta 200-25 Mcg INH] Insulin Glargine,Hum.rec.anlog 56 unit BID 01/02/18 [Lantus] Sitagliptin Phosphate [Januvia] 25 mg PO DAILY 01/02/18 Tiotropium Pacific [Spiriva] 18 mcg IH 01/02/18 - Family History Paternal - - The patient's father at the age of 78 with history of chronic obstructive pulmonary disease. The patient's mother at the age of 84 with history of chronic obstructive pulmonary disease. Smoking Status: Former smoker Tobacco Use: Non-smoker Review of Systems Constitutional: Denies: Chills, Fever, Weight Change Eyes: Denies: Pain, Vision Change HEENT: Denies: Difficulty Hearing, Difficulty Swallowing, Sinus Congestion Cardiovascular: Denies: Chest Pain, Palpitations Respiratory: Denies: Cough, Shortness of Breath Gastrointestinal: Denies: Diarrhea, Nausea, Vomiting Genitourinary: Denies: Dysuria, Hematuria Endocrine: Denies: Heat/ Cold Intolerance, Polydipsia, Polyuria Hematologic/ Lymphatic: Denies: Easy Bruising, Easy Bleeding - Physical Exam Vital Signs Temp Pulse Resp BP 97.4 F L 113 H 20 H 141/76 H 06/11/19 08:07 06/11/19 08:07 06/11/19 08:07 06/11/19 08:07 General: Alert, Oriented x3, Cooperative, No apparent distress, Well developed, Well nourished HEENT: Atraumatic, PERRLA, EOMI, Normocephalic Oral: Moist Mucosa Neck: No JVD Lungs: Normal air movement Abdomen: Non-Distended Extremities: No clubbing, No cyanosis, No edema, No Calf Tenderness, - - There is no significant swelling or edema in the patient's right lower extremity. The ulceration on the right medial foot, overlying the bunion, appears slightly improved. A small amount of callus and hypertrophic tissue persists. There is no sign of infection or cellulitis. Dimensions are documented elsewhere. The ulcerations on the right anterolateral calf persist as well. The erythema and cellulitic changes previously noted are markedly improved, and essentially resolved. There is no significant redness or erythema. The base of the ulcerations are generally pink and healthy, with a moderate amount of bioburden and nonviable tissue. Dimensions are documented elsewhere. Skin: No rashes Wound Measurements and Assessment WC - Nurse 1 - General Ulcer Measurement Start: 05/28/19 08:11 Freq: Status: Active Protocol: Activity Type Activity Date Activity User E-Sign Co-Sign Detail Recorded Client Recorded Date Recorded By Document 06/11/19 08:07 MARCUS [id number] 06/11/19 08:15 DL 06/11/19 08:07 Wound Center Nurse 1 [Ulcer Assessment] #4 R Lat Met Head -Current Size (cm) - Length 0.4 -Current Size (cm) - Width 0.3 -Current Size (cm) - Depth 0.2 -Total Square Cm 0.12 -Photo Taken No -Maximum Distance #2 (cm) 0.1 -Circular Undermining Yes -Exudate Amt Small -Exudate Type Serosanguineous -Wound Margin Thickened -Granulation Amt Small (1-33%) -Granulation Quality [place] -Necrosis Amt Small (1-33%) -Necrotic Tissue Type Adherent Slough -Structure Exposed N/A -Texture (Raul-wound Skin Appearance) Callus -Moisture (Raul-wound Skin Appearance Dry/Scaly ) -Color (Raul-wound Skin Appearance) No Abnormality -Temperature (Raul-wound Skin No Abnormality Appearance) (Pt Warm) -Tenderness on Palpation (Raul-wound No Skin Appearance) -Ulcer Cleansing Wound Cleanser -Foul Odor after Cleansing No -Anesthetic Used 4% Lidocaine Solution #3 LATERAL RLE -Current Size (cm) - Length 1.5 -Current Size (cm) - Width 1.2 -Current Size (cm) - Depth 0.3 -Total Square Cm 1.80 -Photo Taken No -Exudate Amt Small -Exudate Type Serosanguineous -Wound Margin Distinct, Outline Attached -Granulation Amt Medium (34-66%) -Granulation Quality Red -Necrosis Amt Medium (34-66%) -Necrotic Tissue Type Adherent Slough -Structure Exposed N/A -Texture (Raul-wound Skin Appearance) Scarring -Moisture (Raul-wound Skin Appearance Dry/Scaly ) -Color (Raul-wound Skin Appearance) Erythema,Rubor -Ulcer Cleansing Wound Cleanser -Anesthetic Used 4% Lidocaine Solution #2 R Vaz -Current Size (cm) - Length 2.8 -Current Size (cm) - Width 2.5 -Current Size (cm) - Depth 0.3 -Total Square Cm 7.00 -Photo Taken No -Exudate Amt Small -Exudate Type Serosanguineous -Wound Margin Distinct, Outline Attached -Granulation Amt Large (67-100%) -Granulation Quality [place],Red -Necrosis Amt Small (1-33%) -Necrotic Tissue Type Adherent Slough -Structure Exposed N/A -Texture (Raul-wound Skin Appearance) Scarring -Moisture (Raul-wound Skin Appearance No Abnormality ) -Color (Raul-wound Skin Appearance) Erythema,Rubor -Temperature (Raul-wound Skin No Abnormality Appearance) (Pt Warm) -Tenderness on Palpation (Raul-wound No Skin Appearance) -Ulcer Cleansing Wound Cleanser -Foul Odor after Cleansing No -Anesthetic Used 4% Lidocaine Solution [Edema Assessment] -Right Calf (cm) 41.6 -Right Ankle (cm) 23.2 WC - Nurse 2 - General Ulcer CM Notes Start: 05/28/19 08:11 Freq: Status: Active Protocol: Activity Type Activity Date Activity User E-Sign Co-Sign Detail Recorded Client Recorded Date Recorded By Document 06/11/19 08:49 DV [id number] 06/11/19 09:03 DV 06/11/19 08:49 Wound Center Nurse 2 [Procedure/Treatment] #4 R Lat Met Head -Time 08:58 -Correct Patient Yes -Correct Side, Site, Position Yes -Correct Procedure Yes -Procedure Performed Yes -Type of Procedure Debridement -Clinical Debridement Subcutaneous -Post Debridement Size (cm) - Length 0.5 -Post Debridement Size (cm) - Width 0.4 -Post Debridement Size (cm) - Depth 0.2 -Total Square Cm 0.20 -Wound/Ulcer Outcome Not Healed -Ulcer Cleansing Rinsed/ Irrigated with Saline -Foul Odor after Cleansing No -Bioengineered Tissue No -Bleeding Controlled with Pressure -Offloading No -Treatment Response Procedure Tolerated Well #3 LATERAL RLE -Time 08:58 -Correct Patient Yes -Correct Side, Site, Position Yes -Correct Procedure Yes -Procedure Performed Yes -Type of Procedure Debridement -Clinical Debridement Subcutaneous -Post Debridement Size (cm) - Length 1.3 -Post Debridement Size (cm) - Width 1.2 -Post Debridement Size (cm) - Depth 0.2 -Total Square Cm 1.56 -Wound/Ulcer Outcome Not Healed -Ulcer Cleansing Rinsed/ Irrigated with Saline -Foul Odor after Cleansing No -Bioengineered Tissue Yes -Type of bioengineered Tissue GRAFIX-Core -Expiration Date 06/26/20 -Product Lot Number [id number] ) -Percent Used 20 -Saline Lot Number N/A -Topical Lidocaine (%) 4 -Bleeding Controlled with Pressure -Offloading No -Treatment Response Procedure Tolerated Well #2 R Vaz -Time 08:56 -Correct Patient Yes -Correct Side, Site, Position Yes -Correct Procedure Yes -Procedure Performed Yes -Type of Procedure Debridement -Clinical Debridement Subcutaneous -Post Debridement Size (cm) - Length 3.0 -Post Debridement Size (cm) - Width 3.5 -Post Debridement Size (cm) - Depth 0.2 -Total Square Cm 10.50 -Wound/Ulcer Outcome Not Healed -Ulcer Cleansing Rinsed/ Irrigated with Saline -Foul Odor after Cleansing No -Bioengineered Tissue No -Type of bioengineered Tissue GRAFIX-Core -Expiration Date 06/26/20 -Product Lot Number [id number] (3X4 ) -Percent Used 80 -Saline Lot Number N/A -Topical Lidocaine (%) 4 -Bleeding Controlled with Pressure -Offloading No -Treatment Response Procedure Tolerated Well [See Physician Procedure note for Specifics] Pain Scale: 0-10 Numeric [Pain] -Is Patient Pain Free? Yes Musculoskeletal: No Muscle Wasting Neurological: Cranial nerves II-XII grossly intact, Neuro grossly intact Psych/Mental Status: Normal Affect, Appropriate, Alert and oriented to time, place, person, mood and affect Debridement Note Post-Debridement Measurements/Treatment WC - Nurse 2 - General Ulcer CM Notes Start: 05/28/19 08:11 Freq: Status: Active Protocol: Activity Type Activity Date Activity User E-Sign Co-Sign Detail Recorded Client Recorded Date Recorded By Document 05/28/19 08:45 DV [id number] 05/28/19 09:00 DV Document 06/04/19 08:30 DV [id number] 06/04/19 08:32 DV Document 06/11/19 08:49 DV [id number] 06/11/19 09:03 DV 05/28/19 06/04/19 06/11/19 08:45 08:30 08:49 Wound Center Nurse 2 #4 R Lat Met Head -Time 08:46 08:30 08:58 -Correct Patient Yes Yes Yes -Correct Side, Site, Position Yes Yes Yes -Correct Procedure Yes Yes Yes -Procedure Performed Yes Yes Yes -Type of Procedure Debridement Debridement Debridement -Clinical Debridement Subcutaneous Subcutaneous Subcutaneous -Post Debridement Size (cm) - Length 0.3 0.4 0.5 -Post Debridement Size (cm) - Width 0.3 0.4 0.4 -Post Debridement Size (cm) - Depth 0.2 0.3 0.2 -Total Square Cm 0.09 0.16 0.20 -Wound/Ulcer Outcome Not Healed Not Healed Not Healed -Ulcer Cleansing Rinsed/ Rinsed/ Rinsed/ Irrigated with Irrigated with Irrigated with Saline Saline Saline -Foul Odor after Cleansing No No No -Bioengineered Tissue No No No -Bleeding Controlled with Pressure Pressure Pressure -Offloading No No No -Treatment Response Procedure Procedure Procedure Tolerated Well Tolerated Well Tolerated Well #3 LATERAL RLE -Time 08:48 08:30 08:58 -Correct Patient Yes Yes Yes -Correct Side, Site, Position Yes Yes Yes -Correct Procedure Yes Yes Yes -Procedure Performed Yes Yes Yes -Type of Procedure Debridement Debridement Debridement -Clinical Debridement Subcutaneous Subcutaneous Subcutaneous -Post Debridement Size (cm) - Length 1.2 1.3 1.3 -Post Debridement Size (cm) - Width 1.3 1.3 1.2 -Post Debridement Size (cm) - Depth 0.3 0.3 0.2 -Total Square Cm 1.56 1.69 1.56 -Wound/Ulcer Outcome Not Healed Not Healed Not Healed -Ulcer Cleansing Rinsed/ Rinsed/ Rinsed/ Irrigated with Irrigated with Irrigated with Saline Saline Saline -Foul Odor after Cleansing No No No -Bioengineered Tissue No No Yes -Type of bioengineered Tissue GRAFIX-Core -Expiration Date 06/26/20 -Product Lot Number [id number] (3X4 ) -Percent Used 20 -Saline Lot Number N/A -Topical Lidocaine (%) 4 -Bleeding Controlled with Pressure Pressure Pressure -Offloading No No No -Treatment Response Procedure Procedure Procedure Tolerated Well Tolerated Well Tolerated Well #2 R Vaz -Time 08:49 08:31 08:56 -Correct Patient Yes Yes Yes -Correct Side, Site, Position Yes Yes Yes -Correct Procedure Yes Yes Yes -Procedure Performed Yes Yes Yes -Type of Procedure Debridement Debridement Debridement -Clinical Debridement Subcutaneous Subcutaneous Subcutaneous -Post Debridement Size (cm) - Length 3.0 3.0 3.0 -Post Debridement Size (cm) - Width 2.3 2.6 3.5 -Post Debridement Size (cm) - Depth 0.2 0.3 0.2 -Total Square Cm 6.90 7.80 10.50 -Wound/Ulcer Outcome Not Healed Not Healed Not Healed -Ulcer Cleansing Rinsed/ Rinsed/ Rinsed/ Irrigated with Irrigated with Irrigated with Saline Saline Saline -Foul Odor after Cleansing No No No -Bioengineered Tissue No No No -Type of bioengineered Tissue GRAFIX-Core -Expiration Date 06/26/20 -Product Lot Number [id number] (3X4 ) -Percent Used 80 -Saline Lot Number N/A -Topical Lidocaine (%) 4 -Bleeding Controlled with Pressure Pressure Pressure -Offloading No No No -Treatment Response Procedure Procedure Procedure Tolerated Well Tolerated Well Tolerated Well Pain Scale: 0-10 Numeric Is Patient Pain Free? Yes Yes Yes Laterality: Right - Anterolateral calf Type of Debridement: Excisional debridement Anesthesia Used: 5% Lidocaine Gel Depth: Down to and including healthy tissue, in the subcutaneous layer Percentage of wound debrided: 100 Instrument Used: 5mm curette Tissue Removed: Bioburden and nonviable tissue Severity: Fat Layer Exposed Amount of bleeding with debridement: Mild Bleeding Controlled with: Compression and gauze Patient tolerated procedure well Following a routine excisional debridement, which was well-tolerated, a Grafix PL allograft was placed. A 3 cm x 4 cm allograft was selected. Upon removal from its sterile packaging, it was divided into 2 parts, approximately 80% and 20%. The larger of the 2 parts was placed topically on the larger of the 2 ulcerations. The remaining portion was placed on the smaller of the 2 ulcerations. Adaptic Touch was then overlaid. Adaptic was then secured using Steri-Strips. Dry sterile gauze dressing was then applied. The procedure was well-tolerated. - Additional Wound Laterality: Right - Medial foot/bunion Type of Debridement: Excisional debridement Anesthesia Used: 5% Lidocaine Gel Depth: Down to and including healthy tissue, in the subcutaneous layer Percentage of wound debrided: 100 Instrument Used: 3mm curette Tissue Removed: Callus and hypertrophic tissue Severity: Fat Layer Exposed Bleeding Controlled with: Compression and gauze Patient tolerated procedure: Patient tolerated procedure well Assessment/Plan Active Problems Traumatic open wound of lower leg (Chronic) Leg swelling (Chronic) Edema of leg (Chronic) Diabetic foot wound, Hubbard Grade 1 (Chronic) Ulcer of foot due to diabetes (Chronic) Assessment: This is a 58-year-old female who presented with traumatic wounds on the right lower extremity, of several months duration. We have been using collagen hydrogel topically to the wound and callus overlying the bunion on the right foot. Collagen hydrogel has significantly softened this tissue, allowing serial debridements to eliminate much of the callus tissue. This appears to be pressure related due to poor fitting shoes. A noninvasive lower extremity arterial study performed about 1 year ago was normal, revealing triphasic waveforms at ankle level bilaterally, normal resting ankle?brachial indices bilaterally, and normal digital-brachial indices bilaterally. Recent laboratory studies have been obtained, dated February 22, 2019, with results as follows: White blood count 6.2, hemoglobin 14.1, hematocrit 43.4, platelets 218,000, glucose 143, sodium 137, potassium 4.3, chloride 100, BUN 18, creatinine 0.80, calcium 9.5, total protein 6.6, albumin 3.6, hemoglobin A1c 8.3. Recent cultures were positive for Staphylococcus pseudo-intermedius and Corynebacterium species. Based upon sensitivity results, the patient is currently taking Augmentin 875 mg twice daily for 10 days. She has several days remaining. Thus far, there has been significant improvement of the raul-ulcer cellulitic changes. Plan: Patient has been counseled as to the appropriate foot care necessary in diabetic patients. We are to continue the use of a post-op shoe for offloading relative to the ulceration of the right foot. She has also obtained new footwear, which is appropriate and no longer applying pressure to pressure points of her feet. Patient has been advised to optimize her glycemic control. Adequate nutrition has been advised. We are to continue the use of collagen hydrogel topically relative to the ulceration of the right foot. The collagen hydrogel has resulted in significant improvement, allowing for debridement and removal of the preponderance of the callus tissue surrounding the ulceration. This has been a major step forward. Swab cultures have been obtained, and have been positive for Staphylococcus pseudointermedius and Corynebacterium species. Patient is to continue Augmentin 875 mg p.o. twice daily for 10 days, which is nearly completed. A Grafix PL allograft has been placed today on the ulcerations of the right anterolateral calf, and will be left undisturbed until the patient returns in 1 week. The patient is to return in 1 week for reassessment. The patient is to continue wearing her graduated compression stockings of 20 to 30 mmHg compression on a daily basis. The patient is to continue elevating her legs as much as possible. She is to avoid prolonged idle sitting. The patient has been encouraged to assure adequate nutrition. Optimizing glycemic control has also been advised. Weight loss has also been recommended. Influenza vaccine was not administered today. The patient is not a smoker. Patient weighs 265 pounds. She stands 5 feet 4 inches tall. Her BMI is 45.5, which places her in a class III category. Weight loss has been recommended, and collaboration with the patient's primary care physician has been recommended.
[2019-06-18 08:05] VITALS: BP 151/81; PULSE 92; RESP 20; TEMP 36.2; BMI 44.9
--- NOTE | 2019-06-18 08:51 | HP.PCM_ITS ---
(1) Traumatic open wound of lower leg Status: Chronic Current Visit: Yes Qualifiers: Encounter type: subsequent encounter Laterality: right Qualified Code(s): S81.801D - Unspecified open wound, right lower leg, subsequent encounter Code(s): S81.809A - Unspecified open wound, unspecified lower leg, initial encounter (2) Leg swelling Status: Chronic Current Visit: Yes Code(s): M79.89 - Other specified soft tissue disorders (3) Edema of leg Status: Chronic Current Visit: Yes Code(s): R60.0 - Localized edema (4) Diabetes mellitus Status: Chronic Current Visit: No Code(s): E11.9 - Type 2 diabetes mellitus without complications (5) Morbid obesity with BMI of 45.0-49.9, adult Status: Chronic Current Visit: No Code(s): E66.01 - Morbid (severe) obesity due to excess calories; Z68.42 - Body mass index (BMI) 45.0-49.9, adult (6) COPD (chronic obstructive pulmonary disease) Status: Chronic Current Visit: No Code(s): J44.9 - Chronic obstructive pulmonary disease, unspecified (7) Coronary artery arteriosclerosis Status: Chronic Current Visit: No Code(s): I25.10 - Atherosclerotic heart disease of [place] coronary artery without angina pectoris (8) Diabetic foot wound, Hubbard Grade 1 Status: Chronic Current Visit: Yes (9) Ulcer of foot due to diabetes Status: Chronic Current Visit: Yes Qualifiers: Diabetic foot ulcer location: midfoot Code(s): E11.621 - Type 2 diabetes mellitus with foot ulcer; L97.509 - Non- pressure chronic ulcer of other part of unspecified foot with unspecified severity (10) Lumbar disc disease with radiculopathy Status: Chronic Current Visit: No Code(s): M51.16 - Intervertebral disc disorders with radiculopathy, lumbar region History of Present Illness Date of Service: 06/18/19 Chief Complaint: Traumatic open wound of the right lower extremity, Diabetic right foot wound - Hubbard Grade 1 History of Wound: This is a 58-year-old diabetic female who has been previously treated in our facility for a traumatic wound on the left lower extremity. She presented this time with wounds in her right lower extremity. There are 2 wounds involving the right calf, which are traumatic in origin. They are located on the right anterior tibial surface and on the right lateral calf. These occurred due to impact with a car door in December 2018. Patient has been using collagen hydrogel topically. She also has a more recent ulceration on the right foot, located overlying a bunion, which has been present for only several weeks. According the patient, this has occurred as a result of a new pair of sneakers, which she obtained at a retail establishment. The patient is known to be diabetic, and her blood sugars appear to be reasonably well controlled, based upon the patient's account. The previous wound in the left lower extremity has remained healed. The patient has continued to implement conservative treatment measures previously recommended, including leg elevation, avoidance of idle standing and sitting, active lifestyle, attempts at weight loss, and the use of graduated compression stockings on a daily basis, of 20 to 30 mmHg compression. Past Medical History Past Medical History: Chronic Problems Traumatic open wound of lower leg (Chronic) Leg swelling (Chronic) Edema of leg (Chronic) Diabetes mellitus (Chronic) Morbid obesity with BMI of 45.0-49.9, adult (Chronic) COPD (chronic obstructive pulmonary disease) (Chronic) Coronary artery arteriosclerosis (Chronic) Diabetic foot wound, Hubbard Grade 1 (Chronic) Ulcer of foot due to diabetes (Chronic) Lumbar disc disease with radiculopathy (Chronic) Surgical History: - - The patient has a history of coronary artery stent placement. She has undergone open reduction and internal fixation of a left tibia fracture. She underwent right meniscus repair in the past. She is a Ab0. Allergies/Adverse Reactions: Allergies bee venom protein (honey bee) Adverse Reaction (Verified 03/19/19 09:02) Swelling Home Medications: Ambulatory Orders Medication Instructions Recorded Aspirin E.C. [Ecotrin] 81 mg PO DAILY@0800 09/03/13 Hydrocodone/Acetaminophen [Vicodin 1 - 2 tablet PO Q6H PRN PRN 09/03/13 5-300 mg Tablet] Lisinopril 10 mg PO DAILY 09/03/13 Metformin [Metformin HCl] 1,000 mg PO BID 09/03/13 Metoprolol Tartrate 50 mg PO DAILY 09/03/13 Dulaglutide [Trulicity] 0.75 mg SQ 01/02/18 Fluticasone/Vilanterol [Breo 1 each IH 01/02/18 Ellipta 200-25 Mcg INH] Insulin Glargine,Hum.rec.anlog 56 unit BID 01/02/18 [Lantus] Sitagliptin Phosphate [Januvia] 25 mg PO DAILY 01/02/18 Tiotropium [place] [Spiriva] 18 mcg IH 01/02/18 - Family History Paternal - - The patient's father at the age of 78 with history of chronic obstructive pulmonary disease. The patient's mother at the age of 84 with history of chronic obstructive pulmonary disease. Smoking Status: Former smoker Tobacco Use: Non-smoker Review of Systems Constitutional: Denies: Chills, Fever, Weight Change Eyes: Denies: Pain, Vision Change HEENT: Denies: Difficulty Hearing, Difficulty Swallowing, Sinus Congestion Cardiovascular: Denies: Chest Pain, Palpitations Respiratory: Denies: Cough, Shortness of Breath Gastrointestinal: Denies: Diarrhea, Nausea, Vomiting Genitourinary: Denies: Dysuria, Hematuria Endocrine: Denies: Heat/ Cold Intolerance, Polydipsia, Polyuria Hematologic/ Lymphatic: Denies: Easy Bruising, Easy Bleeding - Physical Exam Vital Signs Temp Pulse Resp BP 97.1 F L 92 20 H 151/81 H 06/18/19 08:05 06/18/19 08:05 06/18/19 08:05 06/18/19 08:05 General: Alert, Oriented x3, Cooperative, No apparent distress, Well developed, Well nourished HEENT: Atraumatic, PERRLA, EOMI, Normocephalic Oral: Moist Mucosa Neck: No JVD Lungs: Normal air movement Abdomen: Non-Distended Extremities: No clubbing, No cyanosis, No edema, No Calf Tenderness, - - There is no significant swelling or edema in the patient's right lower extremity. The ulceration of the right foot, overlying the right bunion, appears to be little changed in appearance. A small amount of callus and hypertrophic tissue persists, but appears to be diminishing in amount. There is no sign of infection or cellulitis. Dimensions are documented elsewhere. The base of the ulceration is generally pink and healthy in appearance. The ulcerations on the right lateral calf persist as well. Dimensions are documented elsewhere. There is no sign of infection or cellulitis. The base of these ulcerations are pink and healthy, with active granulation tissue. Skin: No rashes Wound Measurements and Assessment WC - Nurse 1 - General Ulcer Measurement Start: 05/28/19 08:11 Freq: Status: Active Protocol: Activity Type Activity Date Activity User E-Sign Co-Sign Detail Recorded Client Recorded Date Recorded By Document 06/18/19 08:05 MARCUS [id number] 06/18/19 08:11 MARCUS 06/18/19 08:05 Wound Center Nurse 1 [Ulcer Assessment] #4 R Lat Met Head -Current Size (cm) - Length 0.3 -Current Size (cm) - Width 0.1 -Current Size (cm) - Depth 0.2 -Total Square Cm 0.03 -Photo Taken No -Maximum Distance #2 (cm) 0.1 -Circular Undermining Yes -Exudate Amt None Present -Wound Margin Thickened -Granulation Amt Small (1-33%) -Granulation Quality [place] -Necrosis Amt Small (1-33%) -Necrotic Tissue Type Adherent Slough -Structure Exposed N/A -Texture (Raul-wound Skin Appearance) Callus -Moisture (Raul-wound Skin Appearance Dry/Scaly ) -Color (Raul-wound Skin Appearance) No Abnormality -Temperature (Raul-wound Skin No Abnormality Appearance) (Pt Warm) -Tenderness on Palpation (Raul-wound No Skin Appearance) -Ulcer Cleansing Wound Cleanser -Foul Odor after Cleansing No -Anesthetic Used 4% Lidocaine Solution #3 LATERAL RLE -Current Size (cm) - Length 1.5 -Current Size (cm) - Width 1.3 -Current Size (cm) - Depth 0.3 -Total Square Cm 1.95 -Photo Taken No -Exudate Amt Small -Exudate Type Serosanguineous -Wound Margin Distinct, Outline Attached -Granulation Amt Large (67-100%) -Granulation Quality Red -Necrosis Amt Small (1-33%) -Necrotic Tissue Type Adherent Slough -Structure Exposed N/A -Texture (Raul-wound Skin Appearance) Scarring -Moisture (Raul-wound Skin Appearance Maceration ) -Color (Raul-wound Skin Appearance) Hemosiderin Staining -Temperature (Raul-wound Skin No Abnormality Appearance) (Pt Warm) -Tenderness on Palpation (Raul-wound No Skin Appearance) -Ulcer Cleansing Wound Cleanser -Foul Odor after Cleansing No -Anesthetic Used 4% Lidocaine Solution #2 R Vaz -Current Size (cm) - Length 2.9 -Current Size (cm) - Width 2.4 -Current Size (cm) - Depth 0.2 -Total Square Cm 6.96 -Photo Taken No -Exudate Amt Small -Exudate Type Serosanguineous -Wound Margin Distinct, Outline Attached -Granulation Amt Medium (34-66%) -Granulation Quality [place],Red -Necrosis Amt Medium (34-66%) -Necrotic Tissue Type Adherent Slough -Structure Exposed N/A -Texture (Raul-wound Skin Appearance) Scarring -Moisture (Raul-wound Skin Appearance Dry/Scaly ) -Color (Raul-wound Skin Appearance) Hemosiderin Staining -Temperature (Raul-wound Skin No Abnormality Appearance) (Pt Warm) -Tenderness on Palpation (Raul-wound No Skin Appearance) -Ulcer Cleansing Wound Cleanser -Foul Odor after Cleansing No -Anesthetic Used 4% Lidocaine Solution [Edema Assessment] -Right Calf (cm) 42.2 -Right Ankle (cm) 24.3 WC - Nurse 2 - General Ulcer CM Notes Start: 05/28/19 08:11 Freq: Status: Active Protocol: Activity Type Activity Date Activity User E-Sign Co-Sign Detail Recorded Client Recorded Date Recorded By Document 06/18/19 08:33 DV [id number] 06/18/19 08:50 DV 06/18/19 08:33 Wound Center Nurse 2 [Procedure/Treatment] #4 R Lat Met Head -Time 08:41 -Correct Patient Yes -Correct Side, Site, Position Yes -Correct Procedure Yes -Procedure Performed Yes -Type of Procedure Debridement -Clinical Debridement Subcutaneous -Post Debridement Size (cm) - Length 0.5 -Post Debridement Size (cm) - Width 0.3 -Post Debridement Size (cm) - Depth 0.2 -Total Square Cm 0.15 -Wound/Ulcer Outcome Not Healed -Ulcer Cleansing Rinsed/ Irrigated with Saline -Foul Odor after Cleansing No -Bioengineered Tissue No -Bleeding Controlled with Pressure -Offloading No -Type of Offloading Surgical Shoe -Treatment Response Procedure Tolerated Well #3 LATERAL RLE -Time 08:43 -Correct Patient Yes -Correct Side, Site, Position Yes -Correct Procedure Yes -Procedure Performed Yes -Type of Procedure Debridement -Clinical Debridement Subcutaneous -Post Debridement Size (cm) - Length 1.2 -Post Debridement Size (cm) - Width 1.2 -Post Debridement Size (cm) - Depth 0.4 -Total Square Cm 1.44 -Wound/Ulcer Outcome Not Healed -Ulcer Cleansing Rinsed/ Irrigated with Saline -Foul Odor after Cleansing No -Bioengineered Tissue Yes -Type of bioengineered Tissue GRAFIX-Core -Expiration Date 06/26/20 -Product Lot Number [id number] -Percent Used 20 -Saline Lot Number [id number] -Topical Lidocaine (%) 4 -Bleeding Controlled with Pressure -Offloading Yes -Type of Offloading Surgical Shoe -Treatment Response Procedure Tolerated Well #2 R Vaz -Time 08:44 -Correct Side, Site, Position Yes -Correct Procedure Yes -Procedure Performed Yes -Type of Procedure Debridement -Clinical Debridement Subcutaneous -Post Debridement Size (cm) - Length 2.4 -Post Debridement Size (cm) - Width 2.7 -Post Debridement Size (cm) - Depth 0.3 -Total Square Cm 6.48 -Wound/Ulcer Outcome Not Healed -Ulcer Cleansing Rinsed/ Irrigated with Saline -Foul Odor after Cleansing No -Bioengineered Tissue Yes -Type of bioengineered Tissue GRAFIX-Core -Expiration Date 06/26/20 -Product Lot Number [id number] -Percent Used 80 -Saline Lot Number [id number] -Topical Lidocaine (%) 4 -Bleeding Controlled with Pressure -Offloading No -Type of Offloading Surgical Shoe -Treatment Response Procedure Tolerated Well [See Physician Procedure note for Specifics] Pain Scale: 0-10 Numeric [Pain] -Is Patient Pain Free? Yes Musculoskeletal: No Muscle Wasting Neurological: Cranial nerves II-XII grossly intact, Neuro grossly intact Psych/Mental Status: Normal Affect, Appropriate, Alert and oriented to time, place, person, mood and affect Debridement Note Post-Debridement Measurements/Treatment WC - Nurse 2 - General Ulcer CM Notes Start: 05/28/19 08:11 Freq: Status: Active Protocol: Activity Type Activity Date Activity User E-Sign Co-Sign Detail Recorded Client Recorded Date Recorded By Document 05/28/19 08:45 DV [id number] 05/28/19 09:00 DV Document 06/04/19 08:30 DV [id number] 06/04/19 08:32 DV Document 06/11/19 08:49 DV [id number] 06/11/19 09:03 DV Document 06/18/19 08:33 DV [id number] 06/18/19 08:50 DV 05/28/19 06/04/19 06/11/19 08:45 08:30 08:49 Wound Center Nurse 2 #4 R Lat Met Head -Time 08:46 08:30 08:58 -Correct Patient Yes Yes Yes -Correct Side, Site, Position Yes Yes Yes -Correct Procedure Yes Yes Yes -Procedure Performed Yes Yes Yes -Type of Procedure Debridement Debridement Debridement -Clinical Debridement Subcutaneous Subcutaneous Subcutaneous -Post Debridement Size (cm) - Length 0.3 0.4 0.5 -Post Debridement Size (cm) - Width 0.3 0.4 0.4 -Post Debridement Size (cm) - Depth 0.2 0.3 0.2 -Total Square Cm 0.09 0.16 0.20 -Wound/Ulcer Outcome Not Healed Not Healed Not Healed -Ulcer Cleansing Rinsed/ Rinsed/ Rinsed/ Irrigated with Irrigated with Irrigated with Saline Saline Saline -Foul Odor after Cleansing No No No -Bioengineered Tissue No No No -Bleeding Controlled with Pressure Pressure Pressure -Offloading No No No -Type of Offloading -Treatment Response Procedure Procedure Procedure Tolerated Well Tolerated Well Tolerated Well #3 LATERAL RLE -Time 08:48 08:30 08:58 -Correct Patient Yes Yes Yes -Correct Side, Site, Position Yes Yes Yes -Correct Procedure Yes Yes Yes -Procedure Performed Yes Yes Yes -Type of Procedure Debridement Debridement Debridement -Clinical Debridement Subcutaneous Subcutaneous Subcutaneous -Post Debridement Size (cm) - Length 1.2 1.3 1.3 -Post Debridement Size (cm) - Width 1.3 1.3 1.2 -Post Debridement Size (cm) - Depth 0.3 0.3 0.2 -Total Square Cm 1.56 1.69 1.56 -Wound/Ulcer Outcome Not Healed Not Healed Not Healed -Ulcer Cleansing Rinsed/ Rinsed/ Rinsed/ Irrigated with Irrigated with Irrigated with Saline Saline Saline -Foul Odor after Cleansing No No No -Bioengineered Tissue No No Yes -Type of bioengineered Tissue GRAFIX-Core -Expiration Date 06/26/20 -Product Lot Number [id number] (3X4 ) -Percent Used 20 -Saline Lot Number N/A -Topical Lidocaine (%) 4 -Bleeding Controlled with Pressure Pressure Pressure -Offloading No No No -Type of Offloading -Treatment Response Procedure Procedure Procedure Tolerated Well Tolerated Well Tolerated Well #2 R Vaz -Time 08:49 08:31 08:56 -Correct Patient Yes Yes Yes -Correct Side, Site, Position Yes Yes Yes -Correct Procedure Yes Yes Yes -Procedure Performed Yes Yes Yes -Type of Procedure Debridement Debridement Debridement -Clinical Debridement Subcutaneous Subcutaneous Subcutaneous -Post Debridement Size (cm) - Length 3.0 3.0 3.0 -Post Debridement Size (cm) - Width 2.3 2.6 3.5 -Post Debridement Size (cm) - Depth 0.2 0.3 0.2 -Total Square Cm 6.90 7.80 10.50 -Wound/Ulcer Outcome Not Healed Not Healed Not Healed -Ulcer Cleansing Rinsed/ Rinsed/ Rinsed/ Irrigated with Irrigated with Irrigated with Saline Saline Saline -Foul Odor after Cleansing No No No -Bioengineered Tissue No No No -Type of bioengineered Tissue GRAFIX-Core -Expiration Date 06/26/20 -Product Lot Number [id number] (3X4 ) -Percent Used 80 -Saline Lot Number N/A -Topical Lidocaine (%) 4 -Bleeding Controlled with Pressure Pressure Pressure -Offloading No No No -Type of Offloading -Treatment Response Procedure Procedure Procedure Tolerated Well Tolerated Well Tolerated Well Pain Scale: 0-10 Numeric Is Patient Pain Free? Yes Yes Yes 06/18/19 08:33 Wound Center Nurse 2 #4 R Lat Met Head -Time 08:41 -Correct Patient Yes -Correct Side, Site, Position Yes -Correct Procedure Yes -Procedure Performed Yes -Type of Procedure Debridement -Clinical Debridement Subcutaneous -Post Debridement Size (cm) - Length 0.5 -Post Debridement Size (cm) - Width 0.3 -Post Debridement Size (cm) - Depth 0.2 -Total Square Cm 0.15 -Wound/Ulcer Outcome Not Healed -Ulcer Cleansing Rinsed/ Irrigated with Saline -Foul Odor after Cleansing No -Bioengineered Tissue No -Bleeding Controlled with Pressure -Offloading No -Type of Offloading Surgical Shoe -Treatment Response Procedure Tolerated Well #3 LATERAL RLE -Time 08:43 -Correct Patient Yes -Correct Side, Site, Position Yes -Correct Procedure Yes -Procedure Performed Yes -Type of Procedure Debridement -Clinical Debridement Subcutaneous -Post Debridement Size (cm) - Length 1.2 -Post Debridement Size (cm) - Width 1.2 -Post Debridement Size (cm) - Depth 0.4 -Total Square Cm 1.44 -Wound/Ulcer Outcome Not Healed -Ulcer Cleansing Rinsed/ Irrigated with Saline -Foul Odor after Cleansing No -Bioengineered Tissue Yes -Type of bioengineered Tissue GRAFIX-Core -Expiration Date 06/26/20 -Product Lot Number [id number] -Percent Used 20 -Saline Lot Number [id number] -Topical Lidocaine (%) 4 -Bleeding Controlled with Pressure -Offloading Yes -Type of Offloading Surgical Shoe -Treatment Response Procedure Tolerated Well #2 R Vaz -Time 08:44 -Correct Patient -Correct Side, Site, Position Yes -Correct Procedure Yes -Procedure Performed Yes -Type of Procedure Debridement -Clinical Debridement Subcutaneous -Post Debridement Size (cm) - Length 2.4 -Post Debridement Size (cm) - Width 2.7 -Post Debridement Size (cm) - Depth 0.3 -Total Square Cm 6.48 -Wound/Ulcer Outcome Not Healed -Ulcer Cleansing Rinsed/ Irrigated with Saline -Foul Odor after Cleansing No -Bioengineered Tissue Yes -Type of bioengineered Tissue GRAFIX-Core -Expiration Date 06/26/20 -Product Lot Number [id number] -Percent Used 80 -Saline Lot Number -Topical Lidocaine (%) 4 -Bleeding Controlled with Pressure -Offloading No -Type of Offloading Surgical Shoe -Treatment Response Procedure Tolerated Well Pain Scale: 0-10 Numeric Is Patient Pain Free? Yes Laterality: Right - Lateral calf, x2 Type of Debridement: Excisional debridement Anesthesia Used: 5% Lidocaine Gel Depth: Down to and including healthy tissue, in the subcutaneous layer Percentage of wound debrided: 100 Instrument Used: 5mm curette Tissue Removed: Bioburden and nonviable tissue Severity: Fat Layer Exposed Amount of bleeding with debridement: Mild Bleeding Controlled with: Compression and gauze Patient tolerated procedure well Following a routine excisional debridement, which was well-tolerated by the patient, a Grafix PL allograft was placed. A 3 cm x 4 cm allograft was selected, and removed from its sterile packaging. It was cut and fashioned into 2 separate pieces, approximately an 80:20 split. The larger piece was placed on the larger of the 2 ulcerations, and the smaller piece was placed on the smaller of the 2 ulcerations. Once in place, Adaptic Touch was placed, and the Adaptic Touch was anchored in place using Steri-Strips. The procedure was well- tolerated. A gauze dressing was then placed. This represents the fourth such application of an allograft. - Additional Wound Laterality: Right - Foot, overlying bunion Type of Debridement: Excisional debridement Anesthesia Used: 5% Lidocaine Gel Depth: Down to and including healthy tissue Percentage of wound debrided: 100 Instrument Used: 5mm curette Tissue Removed: Callus and hypertrophic tissue Severity: Fat Layer Exposed Amount of bleeding with debridement: Mild Bleeding Controlled with: Compression and gauze Patient tolerated procedure: Patient tolerated procedure well Assessment/Plan Active Problems Traumatic open wound of lower leg (Chronic) Leg swelling (Chronic) Edema of leg (Chronic) Diabetic foot wound, Hubbard Grade 1 (Chronic) Ulcer of foot due to diabetes (Chronic) Assessment: This is a 58-year-old female who presented with traumatic wounds on the right lower extremity, of several months duration. We have been using collagen hydrogel topically to the wound and callus overlying the bunion on the right foot. Collagen hydrogel has significantly softened this tissue, allowing serial debridements to eliminate much of the callus tissue. This appears to be pressure related due to poor fitting shoes. A noninvasive lower extremity arterial study performed about 1 year ago was normal, revealing triphasic waveforms at ankle level bilaterally, normal resting ankle?brachial indices bilaterally, and normal digital-brachial indices bilaterally. Recent laboratory studies have been obtained, dated February 22, 2019, with results as follows: White blood count 6.2, hemoglobin 14.1, hematocrit 43.4, platelets 218,000, glucose 143, sodium 137, potassium 4.3, chloride 100, BUN 18, creatinine 0.80, calcium 9.5, total protein 6.6, albumin 3.6, hemoglobin A1c 8.3. Recent cultures were positive for Staphylococcus pseudo-intermedius and Corynebacterium species. Based upon sensitivity results, the patient has completed a course of Augmentin 875 mg twice daily for 10 days. The raul-ulcer cellulitic changes have resolved. Plan: Patient has been counseled as to the appropriate foot care necessary in diabetic patients. We are to continue the use of a post-op shoe for offloading relative to the ulceration of the right foot. Compliance is suspected to be less than optimal. Patient is to be given a second surgical shoe, so she will have one available at both home and at her place of employment. She has also obtained new footwear, which appears to be appropriate and no longer applying pressure to pressure points of her feet. Patient has been advised to optimize her glycemic control. Adequate nutrition has been advised. We are to continue the use of collagen hydrogel topically relative to the ulceration of the right foot. The collagen hydrogel has resulted in significant improvement, allowing for debridement and removal of the preponderance of the callus tissue surrounding the ulceration. This has been a major step forward. A Grafix PL allograft has been placed today on the ulcerations of the right anterolateral calf, and will be left undisturbed until the patient returns in 1 week. This represents the fourth such application of an allograft. The patient is to return in 1 week for reassessment. The patient is to continue wearing her graduated compression stockings of 20 to 30 mmHg compression on a daily basis. The patient is to continue elevating her legs as much as possible. She is to avoid prolonged idle sitting. The patient has been encouraged to assure adequate nutrition. Optimizing glycemic control has also been advised. Weight loss has also been recommended. Influenza vaccine was not administered today. The patient is not a smoker. Patient weighs 265 pounds. She stands 5 feet 4 inches tall. Her BMI is 45.5, which places her in a class III category. Weight loss has been recommended, and collaboration with the patient's primary care physician has been recommended.
== END 2019-06-22 23:59 ==
LOC: WC 08:00
PROVIDERS: Family Provider Nurse Practitioner Primary Care; PCP Nurse Practitioner Primary Care; Referring Provider Surgery; Visit Provider Surgery
DX: E11.621 Type 2 diabetes mellitus with foot ulcer (principal); I25.10 Atherosclerotic heart disease of native coronary artery without angina pectoris; J44.9 Chronic obstructive pulmonary disease, unspecified; L97.512 Non-pressure chronic ulcer of other part of right foot with fat layer exposed; M21.611 Bunion of right foot; L97.212 Non-pressure chronic ulcer of right calf with fat layer exposed; L84 Corns and callosities; M51.16 Intervertebral disc disorders with radiculopathy, lumbar region; R60.0 Localized edema; Z68.42 Body mass index [BMI] 45.0-49.9, adult; E66.01 Morbid (severe) obesity due to excess calories; M79.89 Other specified soft tissue disorders; S81.801D Unspecified open wound, right lower leg, subsequent encounter; W22.8XXD Striking against or struck by other objects, subsequent encounter; Z79.899 Other long term (current) drug therapy; Z79.4 Long term (current) use of insulin; Z79.82 Long term (current) use of aspirin; Z87.891 Personal history of nicotine dependence
CPT/HCPCS: 11042; 15271; 87070; 87075; 87077; 87186; 87205; Q4133

== ENCOUNTER 2019-07-23 08:00 | Outpatient (RCR) | payer OTHER, SELFPAY ==
[2019-06-23 00:39] VITALS: BP 151/81; PULSE 92; RESP 20; TEMP 36.2
[2019-06-25 08:14] VITALS: BP 128/73; PULSE 108; RESP 18; TEMP 36.7; BMI 44.9
--- NOTE | 2019-06-25 09:24 | PCM.WC.HP ---
(1) Traumatic open wound of lower leg Status: Chronic Current Visit: Yes Qualifiers: Encounter type: subsequent encounter Laterality: right Qualified Code(s): S81.801D - Unspecified open wound, right lower leg, subsequent encounter Code(s): S81.809A - Unspecified open wound, unspecified lower leg, initial encounter (2) Leg swelling Status: Chronic Current Visit: Yes Code(s): M79.89 - Other specified soft tissue disorders (3) Edema of leg Status: Chronic Current Visit: Yes Code(s): R60.0 - Localized edema (4) Diabetes mellitus Status: Chronic Current Visit: Yes Qualifiers: Diabetes mellitus type: type 2 Code(s): E11.9 - Type 2 diabetes mellitus without complications (5) Morbid obesity with BMI of 45.0-49.9, adult Status: Chronic Current Visit: Yes Code(s): E66.01 - Morbid (severe) obesity due to excess calories; Z68.42 - Body mass index (BMI) 45.0-49.9, adult (6) COPD (chronic obstructive pulmonary disease) Status: Chronic Current Visit: No Code(s): J44.9 - Chronic obstructive pulmonary disease, unspecified (7) Coronary artery arteriosclerosis Status: Chronic Current Visit: No Code(s): I25.10 - Atherosclerotic heart disease of [place] coronary artery without angina pectoris (8) Diabetic foot wound, Hubbard Grade 1 Status: Chronic Current Visit: Yes (9) Ulcer of foot due to diabetes Status: Chronic Current Visit: Yes Qualifiers: Diabetic foot ulcer location: midfoot Diabetes mellitus type: type 2 Laterality: right Non-pressure ulcer stage: with fat layer exposed Qualified Code(s): E11.621 - Type 2 diabetes mellitus with foot ulcer; L97.412 - Non-pressure chronic ulcer of right heel and midfoot with fat layer exposed Code(s): E11.621 - Type 2 diabetes mellitus with foot ulcer; L97.509 - Non-pressure chronic ulcer of other part of unspecified foot with unspecified severity (10) Lumbar disc disease with radiculopathy Status: Chronic Current Visit: No Code(s): M51.16 - Intervertebral disc disorders with radiculopathy, lumbar region History of Present Illness Date of Service: 06/25/19 Chief Complaint: Traumatic open wound of the right lower extremity, Diabetic right foot wound - Hubbard Grade 1 History of Wound: This is a 58-year-old diabetic female who has been previously treated in our facility for a traumatic wound on the left lower extremity. She presented this time with wounds in her right lower extremity. There are 2 wounds involving the right calf, which are traumatic in origin. They are located on the right anterior tibial surface and on the right lateral calf. These occurred due to impact with a car door in December 2018. Patient has been using collagen hydrogel topically. She also has a more recent ulceration on the right foot, located overlying a bunion, which has been present for only several weeks. According the patient, this has occurred as a result of a new pair of sneakers, which she obtained at a retail establishment. The patient is known to be diabetic, and her blood sugars appear to be reasonably well controlled, based upon the patient's account. The previous wound in the left lower extremity has remained healed. The patient has continued to implement conservative treatment measures previously recommended, including leg elevation, avoidance of idle standing and sitting, active lifestyle, attempts at weight loss, and the use of graduated compression stockings on a daily basis, of 20 to 30 mmHg compression. Past Medical History Past Medical History: Chronic Problems Traumatic open wound of lower leg (Chronic) Leg swelling (Chronic) Edema of leg (Chronic) Diabetes mellitus (Chronic) Morbid obesity with BMI of 45.0-49.9, adult (Chronic) COPD (chronic obstructive pulmonary disease) (Chronic) Coronary artery arteriosclerosis (Chronic) Diabetic foot wound, Hubbard Grade 1 (Chronic) Ulcer of foot due to diabetes (Chronic) Lumbar disc disease with radiculopathy (Chronic) Surgical History: - - The patient has a history of coronary artery stent placement. She has undergone open reduction and internal fixation of a left tibia fracture. She underwent right meniscus repair in the past. She is a Ab0. Allergies/Adverse Reactions: Allergies bee venom protein (honey bee) Adverse Reaction (Verified 03/19/19 09:02) Swelling Home Medications: Ambulatory Orders Medication Instructions Recorded Aspirin E.C. [Ecotrin] 81 mg PO DAILY@0800 09/03/13 Hydrocodone/Acetaminophen [Vicodin 1 - 2 tablet PO Q6H PRN PRN 09/03/13 5-300 mg Tablet] Lisinopril 10 mg PO DAILY 09/03/13 Metformin [Metformin HCl] 1,000 mg PO BID 09/03/13 Metoprolol Tartrate 50 mg PO DAILY 09/03/13 Dulaglutide [Trulicity] 0.75 mg SQ 01/02/18 Fluticasone/Vilanterol [Breo 1 each IH 01/02/18 Ellipta 200-25 Mcg INH] Insulin Glargine,Hum.rec.anlog 56 unit BID 01/02/18 [Lantus] Sitagliptin Phosphate [Januvia] 25 mg PO DAILY 01/02/18 Tiotropium [place] [Spiriva] 18 mcg IH 01/02/18 - Family History Paternal - - The patient's father at the age of 78 with history of chronic obstructive pulmonary disease. The patient's mother at the age of 84 with history of chronic obstructive pulmonary disease. Smoking Status: Former smoker Tobacco Use: Non-smoker Review of Systems Constitutional: Denies: Chills, Fever, Weight Change Eyes: Denies: Pain, Vision Change HEENT: Denies: Difficulty Hearing, Difficulty Swallowing, Sinus Congestion Cardiovascular: Denies: Chest Pain, Palpitations Respiratory: Denies: Cough, Shortness of Breath Gastrointestinal: Denies: Diarrhea, Nausea, Vomiting Genitourinary: Denies: Dysuria, Hematuria Endocrine: Denies: Heat/ Cold Intolerance, Polydipsia, Polyuria Hematologic/ Lymphatic: Denies: Easy Bruising, Easy Bleeding - Physical Exam Vital Signs Temp Pulse Resp BP 98.1 F 108 H 18 128/73 H 06/25/19 08:14 06/25/19 08:14 06/25/19 08:14 06/25/19 08:14 General: Alert, Oriented x3, Cooperative, No apparent distress, Well developed, Well nourished, - - The patient is obese HEENT: Atraumatic, PERRLA, EOMI, Normocephalic Oral: Moist Mucosa Neck: No JVD Lungs: Normal air movement Abdomen: Non-Distended Extremities: No clubbing, No cyanosis, No Calf Tenderness, - - Only minimal swelling and edema is noted in the right lower extremity. The ulceration overlying the right bunion persists. There is a small amount of callus and hypertrophic tissue. The base of the ulceration is generally pink and healthy in appearance. The ulcerations on the anterolateral aspect of the right calf persist as well. There has been little change in size or appearance. Dimensions are documented elsewhere. There is a mild amount of bioburden and nonviable tissue. There is no obvious sign of infection, though the lack of significant improvement in recent weeks as prompted aerobic and anaerobic swab cultures, which were obtained today. Skin: No rashes Wound Measurements and Assessment WC - Nurse 1 - General Ulcer Measurement Start: 06/25/19 08:14 Freq: Status: Active Protocol: Activity Type Activity Date Activity User E-Sign Co-Sign Detail Recorded Client Recorded Date Recorded By Document 06/25/19 08:14 BS [id number] 06/25/19 08:28 BS 06/25/19 08:14 Wound Center Nurse 1 [Ulcer Assessment] #4 R Lat Met Head -Combined with other wound No -Current Size (cm) - Length 0.3 -Current Size (cm) - Width 1.0 -Current Size (cm) - Depth 0.1 -Total Square Cm 0.30 -Exudate Amt Medium -Exudate Type Serosanguineous -Texture (Ketty-wound Skin Appearance) Assessed,Callus ,Scarring -Moisture (Ketty-wound Skin Appearance Assessed,Dry/ ) Scaly -Temperature (Ketty-wound Skin No Abnormality Appearance) (Pt Warm) -Tenderness on Palpation (Ketty-wound Yes Skin Appearance) -Ulcer Cleansing Soap and water -Anesthetic Used 4% Lidocaine Solution #3 LATERAL RLE -Combined with other wound No -Current Size (cm) - Length 1.7 -Current Size (cm) - Width 1.5 -Current Size (cm) - Depth 0.5 -Total Square Cm 2.55 -Exudate Amt Medium -Exudate Type Serosanguineous -Moisture (Ketty-wound Skin Appearance Assessed,Dry/ ) Scaly -Temperature (Ketty-wound Skin No Abnormality Appearance) (Pt Warm) -Tenderness on Palpation (Ketty-wound Yes Skin Appearance) -Ulcer Cleansing Soap and water -Anesthetic Used 4% Lidocaine Solution #2 R Vaz -Combined with other wound No -Current Size (cm) - Length 3.1 -Current Size (cm) - Width 2.2 -Current Size (cm) - Depth 0.2 -Total Square Cm 6.82 -Exudate Amt Medium -Exudate Type Serosanguineous -Moisture (Ketty-wound Skin Appearance Assessed,Dry/ ) Scaly -Temperature (Ketty-wound Skin No Abnormality Appearance) (Pt Warm) -Tenderness on Palpation (Ketty-wound Yes Skin Appearance) -Ulcer Cleansing Soap and water -Anesthetic Used 4% Lidocaine Solution WC - Nurse 2 - General Ulcer CM Notes Start: 06/25/19 08:14 Freq: Status: Active Protocol: Activity Type Activity Date Activity User E-Sign Co-Sign Detail Recorded Client Recorded Date Recorded By Document 06/25/19 09:11 DV [id number] 06/25/19 09:21 DV 06/25/19 09:11 Wound Center Nurse 2 [Procedure/Treatment] #4 R Lat Met Head -Time 09:18 -Correct Patient Yes -Correct Side, Site, Position Yes -Correct Procedure Yes -Procedure Performed Yes -Type of Procedure Debridement -Clinical Debridement Subcutaneous -Post Debridement Size (cm) - Length 0.3 -Post Debridement Size (cm) - Width 0.3 -Post Debridement Size (cm) - Depth 0.2 -Total Square Cm 0.09 -Wound/Ulcer Outcome Not Healed -Ulcer Cleansing Rinsed/ Irrigated with Saline -Foul Odor after Cleansing No -Bioengineered Tissue No -Bleeding Controlled with Pressure -Offloading No -Treatment Response Procedure Tolerated Well #3 LATERAL RLE -Time 09:18 -Correct Patient Yes -Correct Side, Site, Position Yes -Correct Procedure Yes -Procedure Performed Yes -Type of Procedure Debridement -Clinical Debridement Subcutaneous -Post Debridement Size (cm) - Length 1.5 -Post Debridement Size (cm) - Width 1.5 -Post Debridement Size (cm) - Depth 0.4 -Total Square Cm 2.25 -Wound/Ulcer Outcome Not Healed #2 R Vaz -Time 09:20 -Correct Patient Yes -Correct Side, Site, Position Yes -Correct Procedure Yes -Procedure Performed Yes -Type of Procedure Debridement -Clinical Debridement Subcutaneous -Post Debridement Size (cm) - Length 2.3 -Post Debridement Size (cm) - Width 3.1 -Post Debridement Size (cm) - Depth 0.3 -Total Square Cm 7.13 -Wound/Ulcer Outcome Not Healed -Ulcer Cleansing Rinsed/ Irrigated with Saline -Foul Odor after Cleansing No -Bioengineered Tissue No -Bleeding Controlled with Pressure -Offloading No -Treatment Response Procedure Tolerated Well [See Physician Procedure note for Specifics] Pain Scale: 0-10 Numeric [Pain] -Is Patient Pain Free? Yes Musculoskeletal: No Muscle Wasting Neurological: Cranial nerves II-XII grossly intact, Neuro grossly intact Psych/Mental Status: Normal Affect, Appropriate, Alert and oriented to time, place, person, mood and affect Debridement Note Post-Debridement Measurements/Treatment WC - Nurse 2 - General Ulcer CM Notes Start: 06/25/19 08:14 Freq: Status: Active Protocol: Activity Type Activity Date Activity User E-Sign Co-Sign Detail Recorded Client Recorded Date Recorded By Document 06/25/19 09:11 DV [id number] 06/25/19 09:21 DV 06/25/19 09:11 Wound Center Nurse 2 #4 R Lat Met Head -Time 09:18 -Correct Patient Yes -Correct Side, Site, Position Yes -Correct Procedure Yes -Procedure Performed Yes -Type of Procedure Debridement -Clinical Debridement Subcutaneous -Post Debridement Size (cm) - Length 0.3 -Post Debridement Size (cm) - Width 0.3 -Post Debridement Size (cm) - Depth 0.2 -Total Square Cm 0.09 -Wound/Ulcer Outcome Not Healed -Ulcer Cleansing Rinsed/ Irrigated with Saline -Foul Odor after Cleansing No -Bioengineered Tissue No -Bleeding Controlled with Pressure -Offloading No -Treatment Response Procedure Tolerated Well #3 LATERAL RLE -Time 09:18 -Correct Patient Yes -Correct Side, Site, Position Yes -Correct Procedure Yes -Procedure Performed Yes -Type of Procedure Debridement -Clinical Debridement Subcutaneous -Post Debridement Size (cm) - Length 1.5 -Post Debridement Size (cm) - Width 1.5 -Post Debridement Size (cm) - Depth 0.4 -Total Square Cm 2.25 -Wound/Ulcer Outcome Not Healed #2 R Vaz -Time 09:20 -Correct Patient Yes -Correct Side, Site, Position Yes -Correct Procedure Yes -Procedure Performed Yes -Type of Procedure Debridement -Clinical Debridement Subcutaneous -Post Debridement Size (cm) - Length 2.3 -Post Debridement Size (cm) - Width 3.1 -Post Debridement Size (cm) - Depth 0.3 -Total Square Cm 7.13 -Wound/Ulcer Outcome Not Healed -Ulcer Cleansing Rinsed/ Irrigated with Saline -Foul Odor after Cleansing No -Bioengineered Tissue No -Bleeding Controlled with Pressure -Offloading No -Treatment Response Procedure Tolerated Well Pain Scale: 0-10 Numeric Is Patient Pain Free? Yes Laterality: Right - Anterolateral calf Type of Debridement: Excisional debridement Anesthesia Used: 5% Lidocaine Gel Depth: Down to and including healthy tissue, in the subcutaneous layer Percentage of wound debrided: 100 Instrument Used: 5mm curette Tissue Removed: Bioburden and nonviable tissue Severity: Fat Layer Exposed Amount of bleeding with debridement: Mild Bleeding Controlled with: Compression and gauze Patient tolerated procedure well Due to the relative lack of improvement in recent weeks, the decision was made to forego application of an allograft, and cultures were obtained today, both aerobic and anaerobic by swab. - Additional Wound Laterality: Right - Foot, overlying bunion Type of Debridement: Excisional debridement Anesthesia Used: 5% Lidocaine Gel Depth: Down to and including healthy tissue, in the subcutaneous layer Percentage of wound debrided: 100 Instrument Used: 3mm curette Tissue Removed: Bioburden and hypertrophic tissue Severity: Fat Layer Exposed Amount of bleeding with debridement: Mild Bleeding Controlled with: Compression and gauze Patient tolerated procedure: Patient tolerated procedure well Assessment/Plan Active Problems Traumatic open wound of lower leg (Chronic) Leg swelling (Chronic) Edema of leg (Chronic) Diabetes mellitus (Chronic) Morbid obesity with BMI of 45.0-49.9, adult (Chronic) Diabetic foot wound, Hubbard Grade 1 (Chronic) Ulcer of foot due to diabetes (Chronic) Assessment: This is a 58-year-old female who presented with traumatic wounds on the right lower extremity, of several months duration. We have been using collagen hydrogel topically to the wound and callus overlying the bunion on the right foot. Collagen hydrogel has significantly softened this tissue, allowing serial debridements to eliminate much of the callus tissue. This appears to be pressure related due to poor fitting shoes. A noninvasive lower extremity arterial study performed about 1 year ago was normal, revealing triphasic waveforms at ankle level bilaterally, normal resting ankle?brachial indices bilaterally, and normal digital-brachial indices bilaterally. Recent laboratory studies have been obtained, dated February 22, 2019, with results as follows: White blood count 6.2, hemoglobin 14.1, hematocrit 43.4, platelets 218,000, glucose 143, sodium 137, potassium 4.3, chloride 100, BUN 18, creatinine 0.80, calcium 9.5, total protein 6.6, albumin 3.6, hemoglobin A1c 8.3. The ulcerations on the anterolateral aspect of the right calf have shown little improvement in recent weeks, despite the use of an allograft. Therefore, cultures were obtained today, by swab, for both aerobic and anaerobic bacterial growth. Plan: Patient has been counseled as to the appropriate foot care necessary in diabetic patients. We are to continue the use of a post-op shoe for offloading relative to the ulceration of the right foot. Compliance is suspected to be less than optimal. Patient is to be given a second surgical shoe, so she will have one available at both home and at her place of employment. She has also obtained new footwear, which appears to be appropriate and no longer applying pressure to pressure points of her feet. Patient has been advised to optimize her glycemic control. Adequate nutrition has been advised. We are to continue the use of collagen hydrogel topically relative to the ulceration of the right foot. The collagen hydrogel has resulted in significant improvement, allowing for debridement and removal of the preponderance of the callus tissue surrounding the ulceration. This has been a major step forward. A Grafix PL allograft was placed 1 week ago, the fourth such application. However, despite for such allograft applications, there has been little improvement in the calf ulcerations. Therefore, culture swabs have been obtained for aerobic and anaerobic growth, in an effort to assure that bacterial infection is not hindering the healing process. As result, an allograft was not placed today, and the patient is to use Haily, apply topically on a daily basis. The patient is well aware of how this product is to be applied. The patient is to return in 1 week for reassessment. The patient is to continue wearing her graduated compression stockings of 20 to 30 mmHg compression on a daily basis. The patient is to continue elevating her legs as much as possible. She is to avoid prolonged idle sitting. The patient has been encouraged to assure adequate nutrition. Optimizing glycemic control has also been advised. Weight loss has also been recommended. Influenza vaccine was not administered today. The patient is not a smoker. Patient weighs 265 pounds. She stands 5 feet 4 inches tall. Her BMI is 45.5, which places her in a class III category. Weight loss has been recommended, and collaboration with the patient's primary care physician has been recommended.
[2019-06-25 15:08] LABS: M R Staph aureus DNA By PCR Negative (Negative); Probe Check PASS; Specimen Processing Control PASS; Staph aureus DNA By PCR NEGATIVE (Negative)
--- NOTE | 2019-06-28 17:02 | WC ---
Called RX for Levaquin 500mg into [facility] @ [phone] and spoke to pharmacist Lily Jiménez. Called patient to let her know she can pick pulling machine tender her script as well as to taking a probiotic or increase her yogurt intake
[2019-07-09 08:02] VITALS: BP 153/79; PULSE 121; RESP 18; TEMP 36.1; BMI 44.9
--- NOTE | 2019-07-09 08:20 | HP.PCM_ITS ---
(1) Traumatic open wound of lower leg Status: Chronic Current Visit: Yes Qualifiers: Encounter type: subsequent encounter Laterality: right Qualified Code(s): S81.801D - Unspecified open wound, right lower leg, subsequent encounter Code(s): S81.809A - Unspecified open wound, unspecified lower leg, initial encounter (2) Leg swelling Status: Chronic Current Visit: Yes Code(s): M79.89 - Other specified soft tissue disorders (3) Edema of leg Status: Chronic Current Visit: Yes Code(s): R60.0 - Localized edema (4) Diabetes mellitus Status: Chronic Current Visit: Yes Qualifiers: Diabetes mellitus type: type 2 Code(s): E11.9 - Type 2 diabetes mellitus without complications (5) Morbid obesity with BMI of 45.0-49.9, adult Status: Chronic Current Visit: Yes Code(s): E66.01 - Morbid (severe) obesity due to excess calories; Z68.42 - Body mass index (BMI) 45.0-49.9, adult (6) COPD (chronic obstructive pulmonary disease) Status: Chronic Current Visit: No Code(s): J44.9 - Chronic obstructive pulmonary disease, unspecified (7) Coronary artery arteriosclerosis Status: Chronic Current Visit: No Code(s): I25.10 - Atherosclerotic heart disease of [place] coronary artery without angina pectoris (8) Diabetic foot wound, Hubbard Grade 1 Status: Chronic Current Visit: Yes (9) Ulcer of foot due to diabetes Status: Chronic Current Visit: Yes Qualifiers: Diabetic foot ulcer location: midfoot Diabetes mellitus type: type 2 Laterality: right Non-pressure ulcer stage: with fat layer exposed Qualified Code(s): E11.621 - Type 2 diabetes mellitus with foot ulcer; L97.412 - Non- pressure chronic ulcer of right heel and midfoot with fat layer exposed Code(s): E11.621 - Type 2 diabetes mellitus with foot ulcer; L97.509 - Non- pressure chronic ulcer of other part of unspecified foot with unspecified severity (10) Lumbar disc disease with radiculopathy Status: Chronic Current Visit: No Code(s): M51.16 - Intervertebral disc disorders with radiculopathy, lumbar region History of Present Illness Date of Service: 07/09/19 Chief Complaint: Traumatic open wound of the right lower extremity, Diabetic right foot wound - Hubbard Grade 1 History of Wound: This is a 58-year-old diabetic female who has been previously treated in our facility for a traumatic wound on the left lower extremity. She presented this time with wounds in her right lower extremity. There are 2 wounds involving the right calf, which are traumatic in origin. They are located on the right anterior tibial surface and on the right lateral calf. These occurred due to impact with a car door in December 2018. Patient has been using collagen hydrogel topically. She also has a more recent ulceration on the right foot, located overlying a bunion, which has been present for only several weeks. According the patient, this has occurred as a result of a new pair of sneakers, which she obtained at a retail establishment. The patient is known to be diabetic, and her blood sugars appear to be reasonably well controlled, based upon the patient's account. The previous wound in the left lower extremity has remained healed. The patient has continued to implement conservative treatment measures previously recommended, including leg elevation, avoidance of idle standing and sitting, active lifestyle, attempts at weight loss, and the use of graduated compression stockings on a daily basis, of 20 to 30 mmHg compression. Past Medical History Past Medical History: Chronic Problems Traumatic open wound of lower leg (Chronic) Leg swelling (Chronic) Edema of leg (Chronic) Diabetes mellitus (Chronic) Morbid obesity with BMI of 45.0-49.9, adult (Chronic) COPD (chronic obstructive pulmonary disease) (Chronic) Coronary artery arteriosclerosis (Chronic) Diabetic foot wound, Hubbard Grade 1 (Chronic) Ulcer of foot due to diabetes (Chronic) Lumbar disc disease with radiculopathy (Chronic) Surgical History: - - The patient has a history of coronary artery stent placement. She has undergone open reduction and internal fixation of a left tibia fracture. She underwent right meniscus repair in the past. She is a Ab0. Allergies/Adverse Reactions: Allergies bee venom protein (honey bee) Adverse Reaction (Verified 03/19/19 09:02) Swelling Home Medications: Ambulatory Orders Medication Instructions Recorded Aspirin E.C. [Ecotrin] 81 mg PO DAILY@0800 09/03/13 Hydrocodone/Acetaminophen [Vicodin 1 - 2 tablet PO Q6H PRN PRN 09/03/13 5-300 mg Tablet] Lisinopril 10 mg PO DAILY 09/03/13 Metformin [Metformin HCl] 1,000 mg PO BID 09/03/13 Metoprolol Tartrate 50 mg PO DAILY 09/03/13 Dulaglutide [Trulicity] 0.75 mg SQ 01/02/18 Fluticasone/Vilanterol [Breo 1 each IH 01/02/18 Ellipta 200-25 Mcg INH] Insulin Glargine,Hum.rec.anlog 56 unit BID 01/02/18 [Lantus] Sitagliptin Phosphate [Januvia] 25 mg PO DAILY 01/02/18 Tiotropium [place] [Spiriva] 18 mcg IH 01/02/18 - Family History Paternal - - The patient's father at the age of 78 with history of chronic obstructive pulmonary disease. The patient's mother at the age of 84 with history of chronic obstructive pulmonary disease. Smoking Status: Former smoker Tobacco Use: Non-smoker Review of Systems Constitutional: Denies: Chills, Fever, Weight Change Eyes: Denies: Pain, Vision Change HEENT: Denies: Difficulty Hearing, Difficulty Swallowing, Sinus Congestion Cardiovascular: Denies: Chest Pain, Palpitations Respiratory: Denies: Cough, Shortness of Breath Gastrointestinal: Denies: Diarrhea, Nausea, Vomiting Genitourinary: Denies: Dysuria, Hematuria Endocrine: Denies: Heat/ Cold Intolerance, Polydipsia, Polyuria Hematologic/ Lymphatic: Denies: Easy Bruising, Easy Bleeding - Physical Exam Vital Signs Temp Pulse Resp BP 96.9 F L 121 H 18 153/79 H 07/09/19 08:02 07/09/19 08:02 07/09/19 08:02 07/09/19 08:02 General: Alert, Oriented x3, Cooperative, No apparent distress, Well developed, Well nourished HEENT: Atraumatic, PERRLA, EOMI, Normocephalic Oral: Moist Mucosa Neck: No JVD Lungs: Normal air movement Abdomen: Non-Distended Extremities: No clubbing, No cyanosis, No edema, No Calf Tenderness, - - The dorsal ulcerations on the right lateral calf persists. There is a moderate amount of bioburden and nonviable tissue present. Dimensions are documented elsewhere. There is considerable erythema surrounding these ulcerations. The erythema appears cellulitic in nature. The ulceration overlying the right bunion is now nearly totally healed. There has been considerable progress since the patient's last visit. Wound Measurements and Assessment WC - Nurse 1 - General Ulcer Measurement Start: 06/25/19 08:14 Freq: Status: Active Protocol: Activity Type Activity Date Activity User E-Sign Co-Sign Detail Recorded Client Recorded Date Recorded By Document 07/09/19 08:02 JOSE [id number] 07/09/19 08:09 JOSE 07/09/19 08:02 Wound Center Nurse 1 [Ulcer Assessment] #4 R Lat Met Head -Combined with other wound No -Current Size (cm) - Length 0.4 -Current Size (cm) - Width 0.2 -Current Size (cm) - Depth 0.2 -Total Square Cm 0.08 -Photo Taken No -Epithelialization None Present -Tunneling No -Undermining/Tunneling No -Circular Undermining Yes -Exudate Amt Small -Exudate Type Serosanguineous -Wound Margin Indistinct, Non -Visible -Granulation Amt Small (1-33%) -Granulation Quality [place] -Slough/Fibrin Yes -Necrosis Amt Medium (34-66%) -Necrotic Tissue Type Adherent Slough -Structure Exposed N/A -Texture (Ketty-wound Skin Appearance) Assessed,Callus -Moisture (Ketty-wound Skin Appearance Assessed,Dry/ ) Scaly -Color (Ketty-wound Skin Appearance) Assessed -Temperature (Ketty-wound Skin No Abnormality Appearance) (Pt Warm) -Tenderness on Palpation (Ketty-wound No Skin Appearance) -Ulcer Cleansing Wound Cleanser -Foul Odor after Cleansing No -Anesthetic Used 4% Lidocaine Solution #3 LATERAL RLE -Combined with other wound No -Current Size (cm) - Length 1.8 -Current Size (cm) - Width 1.5 -Current Size (cm) - Depth 0.3 -Total Square Cm 2.70 -Photo Taken No -Epithelialization None Present -Tunneling No -Undermining/Tunneling No -Circular Undermining No -Exudate Amt Medium -Exudate Type Serosanguineous -Wound Margin Flat & Intact -Granulation Amt Medium (34-66%) -Granulation Quality Red -Slough/Fibrin Yes -Necrosis Amt Medium (34-66%) -Necrotic Tissue Type Adherent Slough -Structure Exposed N/A -Texture (Ketty-wound Skin Appearance) Assessed -Moisture (Ketty-wound Skin Appearance Assessed,Dry/ ) Scaly -Color (Ketty-wound Skin Appearance) Assessed, Erythema -Temperature (Ketty-wound Skin No Abnormality Appearance) (Pt Warm) -Ulcer Cleansing Wound Cleanser -Foul Odor after Cleansing No -Anesthetic Used 4% Lidocaine Solution #2 R Vaz -Combined with other wound No -Current Size (cm) - Length 3 -Current Size (cm) - Width 2.6 -Current Size (cm) - Depth 0.2 -Total Square Cm 7.8 -Photo Taken No -Epithelialization None Present -Tunneling No -Undermining/Tunneling No -Circular Undermining No -Exudate Amt Medium -Exudate Type Serosanguineous -Wound Margin Flat & Intact -Granulation Amt Medium (34-66%) -Granulation Quality Red -Slough/Fibrin Yes -Necrosis Amt Medium (34-66%) -Necrotic Tissue Type Adherent Slough -Structure Exposed N/A -Texture (Ketty-wound Skin Appearance) Assessed, Localized Edema -Moisture (Ketty-wound Skin Appearance Assessed,Dry/ ) Scaly -Color (Ketty-wound Skin Appearance) Assessed, Erythema -Temperature (Ketty-wound Skin No Abnormality Appearance) (Pt Warm) -Ulcer Cleansing Wound Cleanser -Foul Odor after Cleansing No -Anesthetic Used 4% Lidocaine Solution [Edema Assessment] -Lower Limb Edema Present Yes -Right Calf (cm) 40.7 -Right Ankle (cm) 23.5 Musculoskeletal: No Muscle Wasting Neurological: Cranial nerves II-XII grossly intact, Neuro grossly intact Psych/Mental Status: Normal Affect, Appropriate, Alert and oriented to time, place, person, mood and affect Debridement Note Post-Debridement Measurements/Treatment WC - Nurse 2 - General Ulcer CM Notes Start: 06/25/19 08:14 Freq: Status: Active Protocol: Activity Type Activity Date Activity User E-Sign Co-Sign Detail Recorded Client Recorded Date Recorded By Document 06/25/19 09:11 DV [id number] 06/25/19 09:21 DV 06/25/19 09:11 Wound Center Nurse 2 #4 R Lat Met Head -Time 09:18 -Correct Patient Yes -Correct Side, Site, Position Yes -Correct Procedure Yes -Procedure Performed Yes -Type of Procedure Debridement -Clinical Debridement Subcutaneous -Post Debridement Size (cm) - Length 0.3 -Post Debridement Size (cm) - Width 0.3 -Post Debridement Size (cm) - Depth 0.2 -Total Square Cm 0.09 -Wound/Ulcer Outcome Not Healed -Ulcer Cleansing Rinsed/ Irrigated with Saline -Foul Odor after Cleansing No -Bioengineered Tissue No -Bleeding Controlled with Pressure -Offloading No -Treatment Response Procedure Tolerated Well #3 LATERAL RLE -Time 09:18 -Correct Patient Yes -Correct Side, Site, Position Yes -Correct Procedure Yes -Procedure Performed Yes -Type of Procedure Debridement -Clinical Debridement Subcutaneous -Post Debridement Size (cm) - Length 1.5 -Post Debridement Size (cm) - Width 1.5 -Post Debridement Size (cm) - Depth 0.4 -Total Square Cm 2.25 -Wound/Ulcer Outcome Not Healed #2 R Vaz -Time 09:20 -Correct Patient Yes -Correct Side, Site, Position Yes -Correct Procedure Yes -Procedure Performed Yes -Type of Procedure Debridement -Clinical Debridement Subcutaneous -Post Debridement Size (cm) - Length 2.3 -Post Debridement Size (cm) - Width 3.1 -Post Debridement Size (cm) - Depth 0.3 -Total Square Cm 7.13 -Wound/Ulcer Outcome Not Healed -Ulcer Cleansing Rinsed/ Irrigated with Saline -Foul Odor after Cleansing No -Bioengineered Tissue No -Bleeding Controlled with Pressure -Offloading No -Treatment Response Procedure Tolerated Well Pain Scale: 0-10 Numeric Is Patient Pain Free? Yes Laterality: Right Type of Debridement: Excisional debridement - Lateral calf Anesthesia Used: 5% Lidocaine Gel Depth: Down to and including healthy tissue, in the subcutaneous layer Percentage of wound debrided: 100 Instrument Used: 7mm curette Tissue Removed: Bioburden and nonviable tissue Severity: Fat Layer Exposed Amount of bleeding with debridement: Mild Bleeding Controlled with: Compression and gauze Patient tolerated procedure well Because of the erythema which surrounds the ulcerations on the right lateral calf, swab cultures have been obtained. Both aerobic and anaerobic culture swabs have been obtained for aerobic and anaerobic bacterial growth. The swabs were obtained following the excisional debridement. We will await the results of the cultures. Additionally, the ulceration overlying the right bunion appears now nearly totally healed. There has been significant epithelialization, and the callus which has been previously present appears to be largely absent, the result of serial debridements and offloading. Assessment/Plan Active Problems Traumatic open wound of lower leg (Chronic) Leg swelling (Chronic) Edema of leg (Chronic) Diabetes mellitus (Chronic) Morbid obesity with BMI of 45.0-49.9, adult (Chronic) Diabetic foot wound, [place] Grade 1 (Chronic) Ulcer of foot due to diabetes (Chronic) Assessment: This is a 58-year-old female who presented with traumatic wounds on the right lower extremity, of several months duration. We have been using collagen hydrogel topically to the wound and callus overlying the bunion on the right foot. Collagen hydrogel has significantly softened this tissue, allowing serial debridements to eliminate much of the callus tissue. This appears to be pressure related due to poor fitting shoes. At this juncture, the ulceration overlying the right bunion is now nearly totally healed. A noninvasive lower extremity arterial study performed about 1 year ago was normal, revealing triphasic waveforms at ankle level bilaterally, normal resting ankle?brachial indices bilaterally, and normal digital-brachial indices bilaterally. Recent laboratory studies have been obtained, dated February 22, 2019, with results as follows: White blood count 6.2, hemoglobin 14.1, hematocrit 43.4, platelets 218,000, glucose 143, sodium 137, potassium 4.3, chloride 100, BUN 18, creatinine 0.80, calcium 9.5, total protein 6.6, albumin 3.6, hemoglobin A1c 8.3. The ulcerations on the anterolateral aspect of the right calf have shown little improvement in recent weeks, despite the use of an allograft. Cultures obtained several weeks ago were positive for Staphylococcus pseudo-intermedius, 3+ in amount. Patient was placed on Levaquin 500 mg p.o. daily for 10 days, which has now been completed. Nonetheless, the patient presents today still with significant erythema about her right calf ulcerations. Swab cultures have once again been obtained today. Plan: Patient has been counseled as to the appropriate foot care necessary in diabetic patients. We are to continue the use of a post-op shoe for offloading relative to the ulceration of the right foot. Compliance is suspected to be less than optimal. Patient is to be given a second surgical shoe, so she will have one available at both home and at her place of employment. She has also obtained new footwear, which appears to be appropriate and no longer applying pressure to pressure points of her feet. Patient has been advised to optimize her glycemic control. Adequate nutrition has been advised. We are to continue the use of collagen hydrogel topically relative to the ulceration of the right foot, which is now nearly totally healed. Because of suspected infection involving the ulcerations on the right lateral calf, cultures have been obtained, the results of which will be awaited. In the interim, Haily is to be continued on a daily basis. As result, an allograft was not placed today. The patient is to return in 1 week for reassessment. The patient is to continue wearing her graduated compression stockings of 20 to 30 mmHg compression on a daily basis. The patient is to continue elevating her legs as much as possible. She is to avoid prolonged idle sitting. The patient has been encouraged to assure adequate nutrition. Optimizing glycemic control has also been advised. Weight loss has also been recommended. Influenza vaccine was not administered today. The patient is not a smoker. Patient weighs 265 pounds. She stands 5 feet 4 inches tall. Her BMI is 45.5, which places her in a class III category. Weight loss has been recommended, and collaboration with the patient's primary care physician has been recommended.
[2019-07-09 15:07] LABS: M R Staph aureus DNA By PCR Negative (Negative); Probe Check PASS; Specimen Processing Control PASS; Staph aureus DNA By PCR NEGATIVE (Negative)
--- NOTE | 2019-07-12 12:49 | WC ---
DR ADAMS REVIEWED PTS WOUND CX'S. GIVES ORDERS FOR ATB, CHLORHEXIDINE BODY WASH, MOUTH WASH, AND BACTROBAN NASAL OINT. PT'S ALLERGIES REVIEWED. CALLED AND UPDATED PT ON ALL & SHE IS AGREEABLE. CALLED TO [facility], PER PT PREFERENCE.
[2019-07-16 08:06] VITALS: BP 140/62; PULSE 87; RESP 16; TEMP 36.3; BMI 44.9
--- NOTE | 2019-07-16 08:30 | HP.PCM_ITS ---
(1) Traumatic open wound of lower leg Status: Chronic Current Visit: Yes Qualifiers: Encounter type: subsequent encounter Laterality: right Qualified Code(s): S81.801D - Unspecified open wound, right lower leg, subsequent encounter Code(s): S81.809A - Unspecified open wound, unspecified lower leg, initial encounter (2) Leg swelling Status: Chronic Current Visit: Yes Code(s): M79.89 - Other specified soft tissue disorders (3) Edema of leg Status: Chronic Current Visit: Yes Code(s): R60.0 - Localized edema (4) Diabetes mellitus Status: Chronic Current Visit: Yes Qualifiers: Diabetes mellitus type: type 2 Code(s): E11.9 - Type 2 diabetes mellitus without complications (5) Morbid obesity with BMI of 45.0-49.9, adult Status: Chronic Current Visit: Yes Code(s): E66.01 - Morbid (severe) obesity due to excess calories; Z68.42 - Body mass index (BMI) 45.0-49.9, adult (6) COPD (chronic obstructive pulmonary disease) Status: Chronic Current Visit: No Code(s): J44.9 - Chronic obstructive pulmonary disease, unspecified (7) Coronary artery arteriosclerosis Status: Chronic Current Visit: No Code(s): I25.10 - Atherosclerotic heart disease of [place] coronary artery without angina pectoris (8) Diabetic foot wound, Hubbard Grade 1 Status: Chronic Current Visit: Yes (9) Ulcer of foot due to diabetes Status: Chronic Current Visit: Yes Qualifiers: Diabetic foot ulcer location: midfoot Diabetes mellitus type: type 2 Laterality: right Non-pressure ulcer stage: with fat layer exposed Qualified Code(s): E11.621 - Type 2 diabetes mellitus with foot ulcer; L97.412 - Non- pressure chronic ulcer of right heel and midfoot with fat layer exposed Code(s): E11.621 - Type 2 diabetes mellitus with foot ulcer; L97.509 - Non- pressure chronic ulcer of other part of unspecified foot with unspecified severity (10) Lumbar disc disease with radiculopathy Status: Chronic Current Visit: No Code(s): M51.16 - Intervertebral disc disorders with radiculopathy, lumbar region History of Present Illness Date of Service: 07/16/19 Chief Complaint: Traumatic open wound of the right lower extremity, Diabetic right foot wound - Hubbard Grade 1 History of Wound: This is a 58-year-old diabetic female who has been previously treated in our facility for a traumatic wound on the left lower extremity. She presented this time with wounds in her right lower extremity. There are 2 wounds involving the right calf, which are traumatic in origin. They are located on the right anterior tibial surface and on the right lateral calf. These occurred due to impact with a car door in December 2018. Patient has been using collagen hydrogel topically. She also has a more recent ulceration on the right foot, located overlying a bunion, which has been present for only several weeks. According the patient, this has occurred as a result of a new pair of sneakers, which she obtained at a retail establishment. The patient is known to be diabetic, and her blood sugars appear to be reasonably well controlled, based upon the patient's account. The previous wound in the left lower extremity has remained healed. The patient has continued to implement conservative treatment measures previously recommended, including leg elevation, avoidance of idle standing and sitting, active lifestyle, attempts at weight loss, and the use of graduated compression stockings on a daily basis, of 20 to 30 mmHg compression. Past Medical History Past Medical History: Chronic Problems Traumatic open wound of lower leg (Chronic) Leg swelling (Chronic) Edema of leg (Chronic) Diabetes mellitus (Chronic) Morbid obesity with BMI of 45.0-49.9, adult (Chronic) COPD (chronic obstructive pulmonary disease) (Chronic) Coronary artery arteriosclerosis (Chronic) Diabetic foot wound, Hubbard Grade 1 (Chronic) Ulcer of foot due to diabetes (Chronic) Lumbar disc disease with radiculopathy (Chronic) Surgical History: - - The patient has a history of coronary artery stent placement. She has undergone open reduction and internal fixation of a left tibia fracture. She underwent right meniscus repair in the past. She is a Ab0. Allergies/Adverse Reactions: Allergies bee venom protein (honey bee) Adverse Reaction (Verified 03/19/19 09:02) Swelling Home Medications: Ambulatory Orders Medication Instructions Recorded Aspirin E.C. [Ecotrin] 81 mg PO DAILY@0800 09/03/13 Hydrocodone/Acetaminophen [Vicodin 1 - 2 tablet PO Q6H PRN PRN 09/03/13 5-300 mg Tablet] Lisinopril 10 mg PO DAILY 09/03/13 Metformin [Metformin HCl] 1,000 mg PO BID 09/03/13 Metoprolol Tartrate 50 mg PO DAILY 09/03/13 Dulaglutide [Trulicity] 0.75 mg SQ 01/02/18 Fluticasone/Vilanterol [Breo 1 each IH 01/02/18 Ellipta 200-25 Mcg INH] Insulin Glargine,Hum.rec.anlog 56 unit BID 01/02/18 [Lantus] Sitagliptin Phosphate [Januvia] 25 mg PO DAILY 01/02/18 Tiotropium Menan [Spiriva] 18 mcg IH 01/02/18 - Family History Paternal - - The patient's father at the age of 78 with history of chronic obstructive pulmonary disease. The patient's mother at the age of 84 with history of chronic obstructive pulmonary disease. Smoking Status: Former smoker Tobacco Use: Non-smoker Review of Systems Constitutional: Denies: Chills, Fever, Weight Change Eyes: Denies: Pain, Vision Change HEENT: Denies: Difficulty Hearing, Difficulty Swallowing, Sinus Congestion Cardiovascular: Denies: Chest Pain, Palpitations Respiratory: Denies: Cough, Shortness of Breath Gastrointestinal: Denies: Diarrhea, Nausea, Vomiting Genitourinary: Denies: Dysuria, Hematuria Endocrine: Denies: Heat/ Cold Intolerance, Polydipsia, Polyuria Hematologic/ Lymphatic: Denies: Easy Bruising, Easy Bleeding - Physical Exam Vital Signs Temp Pulse Resp BP 97.4 F L 87 16 140/62 H 07/16/19 08:06 07/16/19 08:06 07/16/19 08:06 07/16/19 08:06 General: Alert, Oriented x3, Cooperative, No apparent distress, Well developed, Well nourished, - - The patient is obese. HEENT: Atraumatic, PERRLA, EOMI, Normocephalic Oral: Moist Mucosa Neck: No JVD Lungs: Normal air movement Abdomen: Non-Distended Extremities: No clubbing, No cyanosis, No edema, No Calf Tenderness, - - There is no swelling or edema in the patient's right lower extremity. The ulceration overlying the right bunion is nearly healed. It is quite small. There is no sign of infection or cellulitis. There is a small amount of bioburden and callus tissue. The paired ulcerations on the right anterolateral calf persist. The base of the ulcerations are generally pink and healthy in appearance, with a moderate amount of bioburden. Ketty-ulcer erythema persists, suspected to be cellulitic in nature. Dimensions are documented elsewhere. Wound Measurements and Assessment WC - Nurse 1 - General Ulcer Measurement Start: 06/25/19 08:14 Freq: Status: Active Protocol: Activity Type Activity Date Activity User E-Sign Co-Sign Detail Recorded Client Recorded Date Recorded By Document 07/16/19 08:06 JOSE [id number] 07/16/19 08:15 JOSE 07/16/19 08:06 Wound Center Nurse 1 [Ulcer Assessment] #4 R Lat Met Head -Combined with other wound No -Current Size (cm) - Length 0.2 -Current Size (cm) - Width 0.2 -Current Size (cm) - Depth 0.2 -Total Square Cm 0.04 -Photo Taken No -Epithelialization None Present -Tunneling No -Undermining/Tunneling No -Circular Undermining No -Exudate Amt Small -Exudate Type Serosanguineous -Wound Margin Flat & Intact -Granulation Amt Medium (34-66%) -Granulation Quality [place] -Slough/Fibrin Yes -Necrosis Amt Medium (34-66%) -Necrotic Tissue Type Adherent Slough -Structure Exposed N/A -Texture (Ketty-wound Skin Appearance) Assessed,Callus -Moisture (Ketty-wound Skin Appearance Assessed,Dry/ ) Scaly -Color (Ketty-wound Skin Appearance) Assessed -Temperature (Ketty-wound Skin No Abnormality Appearance) (Pt Warm) -Tenderness on Palpation (Ketty-wound No Skin Appearance) -Ulcer Cleansing Wound Cleanser -Foul Odor after Cleansing No -Anesthetic Used 4% Lidocaine Solution #3 LATERAL RLE -Combined with other wound No -Current Size (cm) - Length 1.6 -Current Size (cm) - Width 1.6 -Current Size (cm) - Depth 0.2 -Total Square Cm 2.56 -Photo Taken No -Epithelialization None Present -Tunneling No -Undermining/Tunneling No -Circular Undermining No -Exudate Amt Small -Exudate Type Serosanguineous -Wound Margin Flat & Intact -Granulation Amt Small (1-33%) -Granulation Quality [place] -Slough/Fibrin Yes -Necrosis Amt Medium (34-66%) -Necrotic Tissue Type Adherent Slough -Structure Exposed N/A -Texture (Ketty-wound Skin Appearance) Assessed, Localized Edema -Moisture (Ketty-wound Skin Appearance Assessed,Dry/ ) Scaly -Color (Ketty-wound Skin Appearance) Assessed -Temperature (Ketty-wound Skin No Abnormality Appearance) (Pt Warm) -Tenderness on Palpation (Ketty-wound No Skin Appearance) -Ulcer Cleansing Rinsed/ Irrigated with Saline -Foul Odor after Cleansing No -Anesthetic Used 4% Lidocaine Solution #2 R Vaz -Combined with other wound No -Current Size (cm) - Length 3.1 -Current Size (cm) - Width 2.5 -Current Size (cm) - Depth 0.1 -Total Square Cm 7.75 -Photo Taken No -Epithelialization None Present -Tunneling No -Undermining/Tunneling No -Circular Undermining No -Exudate Amt Medium -Exudate Type Serosanguineous -Wound Margin Flat & Intact -Granulation Amt Small (1-33%) -Granulation Quality [place] -Slough/Fibrin Yes -Necrosis Amt Large (67-100%) -Necrotic Tissue Type Adherent Slough -Structure Exposed N/A -Texture (Ketty-wound Skin Appearance) Assessed, Localized Edema -Moisture (Ketty-wound Skin Appearance Assessed,Dry/ ) Scaly -Color (Ketty-wound Skin Appearance) Assessed, Erythema -Temperature (Ketty-wound Skin No Abnormality Appearance) (Pt Warm) -Tenderness on Palpation (Ketty-wound No Skin Appearance) -Ulcer Cleansing Rinsed/ Irrigated with Saline -Foul Odor after Cleansing No -Anesthetic Used 4% Lidocaine Solution [Edema Assessment] -Lower Limb Edema Present Yes -Right Calf (cm) 41.5 -Right Ankle (cm) 23.4 WC - Nurse 2 - General Ulcer CM Notes Start: 06/25/19 08:14 Freq: Status: Active Protocol: Activity Type Activity Date Activity User E-Sign Co-Sign Detail Recorded Client Recorded Date Recorded By Document 07/16/19 08:25 DV [id number] 07/16/19 08:30 DV 07/16/19 08:25 Wound Center Nurse 2 [Procedure/Treatment] #4 R Lat Met Head -Time 08:26 -Correct Patient Yes -Correct Side, Site, Position Yes -Correct Procedure Yes -Procedure Performed Yes -Type of Procedure Debridement -Clinical Debridement Subcutaneous -Post Debridement Size (cm) - Length 0.2 -Post Debridement Size (cm) - Width 0.1 -Post Debridement Size (cm) - Depth 0.3 -Total Square Cm 0.02 -Wound/Ulcer Outcome Not Healed -Ulcer Cleansing Rinsed/ Irrigated with Saline -Foul Odor after Cleansing No -Bioengineered Tissue No -Bleeding Controlled with Pressure -Offloading No -Type of Offloading Surgical Shoe -Treatment Response Procedure Tolerated Well #3 LATERAL RLE -Time 08:27 -Correct Patient Yes -Correct Side, Site, Position Yes -Correct Procedure Yes -Procedure Performed Yes -Type of Procedure Debridement -Clinical Debridement Subcutaneous -Post Debridement Size (cm) - Length 2.2 -Post Debridement Size (cm) - Width 2.2 -Post Debridement Size (cm) - Depth 0.3 -Total Square Cm 4.84 -Wound/Ulcer Outcome Not Healed -Ulcer Cleansing Rinsed/ Irrigated with Saline -Foul Odor after Cleansing No -Bioengineered Tissue No -Bleeding Controlled with Pressure -Offloading No -Type of Offloading Surgical Shoe -Treatment Response Procedure Tolerated Well #2 R Vaz -Time 08:28 -Correct Patient Yes -Correct Side, Site, Position Yes -Correct Procedure Yes -Procedure Performed Yes -Type of Procedure Debridement -Clinical Debridement Subcutaneous -Post Debridement Size (cm) - Length 3.5 -Post Debridement Size (cm) - Width 2.6 -Post Debridement Size (cm) - Depth 0.2 -Total Square Cm 9.10 -Wound/Ulcer Outcome Not Healed -Bleeding Controlled with Pressure -Offloading No -Type of Offloading Surgical Shoe -Treatment Response Procedure Tolerated Well [See Physician Procedure note for Specifics] Pain Scale: 0-10 Numeric [Pain] -Is Patient Pain Free? Yes Musculoskeletal: No Muscle Wasting Neurological: Cranial nerves II-XII grossly intact, Neuro grossly intact Psych/Mental Status: Normal Affect, Appropriate, Alert and oriented to time, p lace, person, mood and affect Debridement Note Post-Debridement Measurements/Treatment WC - Nurse 2 - General Ulcer CM Notes Start: 06/25/19 08:14 Freq: Status: Active Protocol: Activity Type Activity Date Activity User E-Sign Co-Sign Detail Recorded Client Recorded Date Recorded By Document 06/25/19 09:11 DV [id number] 06/25/19 09:21 DV Document 07/16/19 08:25 DV [id number] 03/24/20 08:30 DV 06/25/19 07/16/19 09:11 08:25 Wound Center Nurse 2 #4 R Lat Met Head -Time 09:18 08:26 -Correct Patient Yes Yes -Correct Side, Site, Position Yes Yes -Correct Procedure Yes Yes -Procedure Performed Yes Yes -Type of Procedure Debridement Debridement -Clinical Debridement Subcutaneous Subcutaneous -Post Debridement Size (cm) - Length 0.3 0.2 -Post Debridement Size (cm) - Width 0.3 0.1 -Post Debridement Size (cm) - Depth 0.2 0.3 -Total Square Cm 0.09 0.02 -Wound/Ulcer Outcome Not Healed Not Healed -Ulcer Cleansing Rinsed/ Rinsed/ Irrigated with Irrigated with Saline Saline -Foul Odor after Cleansing No No -Bioengineered Tissue No No -Bleeding Controlled with Pressure Pressure -Offloading No No -Type of Offloading Surgical Shoe -Treatment Response Procedure Procedure Tolerated Well Tolerated Well #3 LATERAL RLE -Time 09:18 08:27 -Correct Patient Yes Yes -Correct Side, Site, Position Yes Yes -Correct Procedure Yes Yes -Procedure Performed Yes Yes -Type of Procedure Debridement Debridement -Clinical Debridement Subcutaneous Subcutaneous -Post Debridement Size (cm) - Length 1.5 2.2 -Post Debridement Size (cm) - Width 1.5 2.2 -Post Debridement Size (cm) - Depth 0.4 0.3 -Total Square Cm 2.25 4.84 -Wound/Ulcer Outcome Not Healed Not Healed -Ulcer Cleansing Rinsed/ Irrigated with Saline -Foul Odor after Cleansing No -Bioengineered Tissue No -Bleeding Controlled with Pressure -Offloading No -Type of Offloading Surgical Shoe -Treatment Response Procedure Tolerated Well #2 R Vaz -Time 09: 08:28 -Correct Patient Yes Yes -Correct Side, Site, Position Yes Yes -Correct Procedure Yes Yes -Procedure Performed Yes Yes -Type of Procedure Debridement Debridement -Clinical Debridement Subcutaneous Subcutaneous -Post Debridement Size (cm) - Length 2.3 3.5 -Post Debridement Size (cm) - Width 3.1 2.6 -Post Debridement Size (cm) - Depth 0.3 0.2 -Total Square Cm 7.13 9.10 -Wound/Ulcer Outcome Not Healed Not Healed -Ulcer Cleansing Rinsed/ Irrigated with Saline -Foul Odor after Cleansing No -Bioengineered Tissue No -Bleeding Controlled with Pressure Pressure -Offloading No No -Type of Offloading Surgical Shoe -Treatment Response Procedure Procedure Tolerated Well Tolerated Well Pain Scale: 0-10 Numeric Is Patient Pain Free? Yes Yes Laterality: Right - Anterolateral calf x2 Type of Debridement: Excisional debridement Anesthesia Used: 5% Lidocaine Gel Depth: Down to and including healthy tissue, in the subcutaneous layer Percentage of wound debrided: 100 Instrument Used: 5mm curette Tissue Removed: Bioburden and nonviable tissue Severity: Fat Layer Exposed Amount of bleeding with debridement: Mild Bleeding Controlled with: Compression and gauze Patient tolerated procedure well - Additional Wound Laterality: Right - Medial foot/bunion Type of Debridement: Excisional debridement Anesthesia Used: 5% Lidocaine Gel Depth: Down to and including healthy tissue, in the subcutaneous layer Percentage of wound debrided: 100 Instrument Used: 5mm curette Tissue Removed: Bioburden and hypertrophic callus tissue Severity: Fat Layer Exposed Amount of bleeding with debridement: None Bleeding Controlled with: - Patient tolerated procedure: Patient tolerated procedure well Assessment/Plan Active Problems Traumatic open wound of lower leg (Chronic) Leg swelling (Chronic) Edema of leg (Chronic) Diabetes mellitus (Chronic) Morbid obesity with BMI of 45.0-49.9, adult (Chronic) Diabetic foot wound, Hubbard Grade 1 (Chronic) Ulcer of foot due to diabetes (Chronic) Assessment: This is a 58-year-old female who presented with traumatic wounds on the right lower extremity, of several months duration. We have been using collagen hydrogel topically to the wound and callus overlying the bunion on the right foot. Collagen hydrogel has significantly softened this tissue, allowing serial debridements to eliminate much of the callus tissue. This appears to be pressure related due to poor fitting shoes. At this juncture, the ulceration overlying the right bunion is now nearly totally healed. A noninvasive lower extremity arterial study performed about 1 year ago was normal, revealing triphasic waveforms at ankle level bilaterally, normal resting ankle?brachial indices bilaterally, and normal digital-brachial indices bilaterally. Recent laboratory studies have been obtained, dated February 22, 2019, with results as follows: White blood count 6.2, hemoglobin 14.1, hematocrit 43.4, platelets 218,000, glucose 143, sodium 137, potassium 4.3, chloride 100, BUN 18, creatinine 0.80, calcium 9.5, total protein 6.6, albumin 3.6, hemoglobin A1c 8.3. The ulcerations on the anterolateral aspect of the right calf have shown little improvement in recent weeks, despite the use of an allograft. Cultures were obtained 1 week ago, which were positive for Staphylococcus simulans and Staphylococcus epidermidis. Staph species have been repetitively cultured from the patient's right lower extremity ulcerations. There is concern that these may be pathological staph species. Therefore, a treatment regimen was devised, which will be detailed below. Because of the persisting erythema about the ulcerations of the right calf, a skin substitute was not applied today. Plan: Patient has been counseled as to the appropriate foot care necessary in diabetic patients. We are to continue the use of a post-op shoe for offloading relative to the ulceration of the right foot. Compliance is suspected to be less than optimal. Patient has been given a second surgical shoe, so she will have one available at both home and at her place of employment. She has also obtained new footwear, which appears to be appropriate and no longer applying pressure to pressure points of her feet. Patient has been advised to optimize h er glycemic control. Adequate nutrition has been advised. We are to continue the use of collagen hydrogel topically relative to the ulceration of the right foot, which is now nearly totally healed. Haily is to be continued on a daily basis to the ulcerations on the right anterolateral calf. With respect to the positive cultures for staph species, a decolonization protocol has been initiated. The patient has been prescribed chlorhexidine mouthwash 0.12% for gargle twice daily. Chlorhexidine 4% has been prescribed for newly showering. Mucopirocin 2% nasal ointment has been prescribed for intranasal administration twice daily. Bactrim double strength has been prescribed for oral intake twice daily. This aggressive regimen is designed to eradicate the suspected pathogenic Staphylococcus colonization of her wounds, which is felt to be delaying wound healing. The patient is to return in 1 week for reassessment. The patient is to continue wearing her graduated compression stockings of 20 to 30 mmHg compression on a daily basis. The patient is to continue elevating her legs as much as possible. She is to avoid prolonged idle sitting. The patient has been encouraged to assure adequate nutrition. Optimizing glycemic control has also been advised. Weight loss has also been recommended. Influenza vaccine was not administered today. The patient is not a smoker. Patient we ighs 265 pounds. She stands 5 feet 4 inches tall. Her BMI is 45.5, which places her in a class III category. Weight loss has been recommended, and collaboration with the patient's primary care physician has been recommended.
[2019-07-23 08:08] VITALS: BP 136/73; PULSE 103; RESP 18; TEMP 36.4; BMI 44.9
--- NOTE | 2019-07-23 08:34 | HP.PCM_ITS ---
(1) Traumatic open wound of lower leg Status: Chronic Current Visit: Yes Qualifiers: Encounter type: subsequent encounter Laterality: right Qualified Code(s): S81.801D - Unspecified open wound, right lower leg, subsequent encounter Code(s): S81.809A - Unspecified open wound, unspecified lower leg, initial encounter (2) Leg swelling Status: Chronic Current Visit: Yes Code(s): M79.89 - Other specified soft tissue disorders (3) Edema of leg Status: Chronic Current Visit: Yes Code(s): R60.0 - Localized edema (4) Diabetes mellitus Status: Chronic Current Visit: Yes Qualifiers: Diabetes mellitus type: type 2 Code(s): E11.9 - Type 2 diabetes mellitus without complications (5) Morbid obesity with BMI of 45.0-49.9, adult Status: Chronic Current Visit: Yes Code(s): E66.01 - Morbid (severe) obesity due to excess calories; Z68.42 - Body mass index (BMI) 45.0-49.9, adult (6) COPD (chronic obstructive pulmonary disease) Status: Chronic Current Visit: No Code(s): J44.9 - Chronic obstructive pulmonary disease, unspecified (7) Coronary artery arteriosclerosis Status: Chronic Current Visit: No Code(s): I25.10 - Atherosclerotic heart disease of [place] coronary artery without angina pectoris (8) Diabetic foot wound, Hubbard Grade 1 Status: Chronic Current Visit: Yes (9) Ulcer of foot due to diabetes Status: Chronic Current Visit: Yes Qualifiers: Diabetic foot ulcer location: midfoot Diabetes mellitus type: type 2 Laterality: right Non-pressure ulcer stage: with fat layer exposed Qualified Code(s): E11.621 - Type 2 diabetes mellitus with foot ulcer; L97.412 - Non- pressure chronic ulcer of right heel and midfoot with fat layer exposed Code(s): E11.621 - Type 2 diabetes mellitus with foot ulcer; L97.509 - Non- pressure chronic ulcer of other part of unspecified foot with unspecified severity (10) Lumbar disc disease with radiculopathy Status: Chronic Current Visit: No Code(s): M51.16 - Intervertebral disc disorders with radiculopathy, lumbar region History of Present Illness Date of Service: 07/23/19 Chief Complaint: Traumatic open wound of the right lower extremity, Diabetic right foot wound - Hubbard Grade 1 History of Wound: This is a 58-year-old diabetic female who has been previously treated in our facility for a traumatic wound on the left lower extremity. She presented this time with wounds in her right lower extremity. There are 2 wounds involving the right calf, which are traumatic in origin. They are located on the right anterior tibial surface and on the right lateral calf. These occurred due to impact with a car door in December 2018. Patient has been using collagen hydrogel topically. She also has a more recent ulceration on the right foot, located overlying a bunion, which has been present for only several weeks. According the patient, this has occurred as a result of a new pair of sneakers, which she obtained at a retail establishment. The patient is known to be diabetic, and her blood sugars appear to be reasonably well controlled, based upon the patient's account. The previous wound in the left lower extremity has remained healed. The patient has continued to implement conservative treatment measures previously recommended, including leg elevation, avoidance of idle standing and sitting, active lifestyle, attempts at weight loss, and the use of graduated compression stockings on a daily basis, of 20 to 30 mmHg compression. Past Medical History Past Medical History: Chronic Problems Traumatic open wound of lower leg (Chronic) Leg swelling (Chronic) Edema of leg (Chronic) Diabetes mellitus (Chronic) Morbid obesity with BMI of 45.0-49.9, adult (Chronic) COPD (chronic obstructive pulmonary disease) (Chronic) Coronary artery arteriosclerosis (Chronic) Diabetic foot wound, Hubbard Grade 1 (Chronic) Ulcer of foot due to diabetes (Chronic) Lumbar disc disease with radiculopathy (Chronic) Surgical History: - - The patient has a history of coronary artery stent placement. She has undergone open reduction and internal fixation of a left tibia fracture. She underwent right meniscus repair in the past. She is a Ab0. Allergies/Adverse Reactions: Allergies bee venom protein (honey bee) Adverse Reaction (Verified 03/19/19 09:02) Swelling Home Medications: Ambulatory Orders Medication Instructions Recorded Aspirin E.C. [Ecotrin] 81 mg PO DAILY@0800 09/03/13 Hydrocodone/Acetaminophen [Vicodin 1 - 2 tablet PO Q6H PRN PRN 09/03/13 5-300 mg Tablet] Lisinopril 10 mg PO DAILY 09/03/13 Metformin [Metformin HCl] 1,000 mg PO BID 09/03/13 Metoprolol Tartrate 50 mg PO DAILY 09/03/13 Dulaglutide [Trulicity] 0.75 mg SQ 01/02/18 Fluticasone/Vilanterol [Breo 1 each IH 01/02/18 Ellipta 200-25 Mcg INH] Insulin Glargine,Hum.rec.anlog 56 unit BID 01/02/18 [Lantus] Sitagliptin Phosphate [Januvia] 25 mg PO DAILY 01/02/18 Tiotropium [place] [Spiriva] 18 mcg IH 01/02/18 - Family History Paternal - - The patient's father at the age of 78 with history of chronic obstructive pulmonary disease. The patient's mother at the age of 84 with history of chronic obstructive pulmonary disease. Smoking Status: Former smoker Tobacco Use: Non-smoker Review of Systems Constitutional: Denies: Chills, Fever, Weight Change Eyes: Denies: Pain, Vision Change HEENT: Denies: Difficulty Hearing, Difficulty Swallowing, Sinus Congestion Cardiovascular: Denies: Chest Pain, Palpitations Respiratory: Denies: Cough, Shortness of Breath Gastrointestinal: Denies: Diarrhea, Nausea, Vomiting Genitourinary: Denies: Dysuria, Hematuria Endocrine: Denies: Heat/ Cold Intolerance, Polydipsia, Polyuria Hematologic/ Lymphatic: Denies: Easy Bruising, Easy Bleeding - Physical Exam Vital Signs Temp Pulse Resp BP 97.6 F L 103 H 18 136/73 H 07/23/19 08:08 07/23/19 08:08 07/23/19 08:08 07/23/19 08:08 General: Alert, Oriented x3, Cooperative, No apparent distress, Well developed, Well nourished HEENT: Atraumatic, PERRLA, EOMI, Normocephalic Oral: Moist Mucosa Neck: No JVD Lungs: Normal air movement Abdomen: Non-Distended Extremities: No clubbing, No cyanosis, No Calf Tenderness, - - There is no significant swelling or edema in the patient's right lower extremity. The ulcerations on the right lateral calf persist. There is a moderate amount of bioburden. There continues to be only slight raul-ulcer erythema, significantly improved over previous recent weeks. Dimensions are documented elsewhere. The ulceration overlying the right bunion demonstrates persisting callus and hypertrophic epithelial tissue. However, it appears to be largely healed, with a cleft noted within the callus itself. There is no sign of infection or cellu litis at this site. Wound Measurements and Assessment WC - Nurse 1 - General Ulcer Measurement Start: 06/25/19 08:14 Freq: Status: Active Protocol: Activity Type Activity Date Activity User E-Sign Co-Sign Detail Recorded Client Recorded Date Recorded By Document 07/23/19 08:08 MARCUS [id number] 07/23/19 08:18 DL 07/23/19 08:08 Wound Center Nurse 1 [Ulcer Assessment] #4 R Lat Met Head -Current Size (cm) - Length 0.2 -Current Size (cm) - Width 0.2 -Current Size (cm) - Depth 0.3 -Total Square Cm 0.04 -Photo Taken No -Maximum Distance #2 (cm) 0.3 -Circular Undermining Yes -Exudate Amt None Present -Wound Margin Thickened -Granulation Amt Small (1-33%) -Granulation Quality Pale,[place] -Necrosis Amt None Present (0 %) -Structure Exposed N/A -Texture (Raul-wound Skin Appearance) Callus -Moisture (Raul-wound Skin Appearance Dry/Scaly ) -Color (Raul-wound Skin Appearance) No Abnormality -Temperature (Raul-wound Skin No Abnormality Appearance) (Pt Warm) -Tenderness on Palpation (Raul-wound No Skin Appearance) -Ulcer Cleansing Wound Cleanser -Foul Odor after Cleansing No #3 LATERAL RLE -Current Size (cm) - Length 1.6 -Current Size (cm) - Width 1.5 -Current Size (cm) - Depth 0.3 -Total Square Cm 2.40 -Photo Taken No -Exudate Amt Small -Exudate Type Serosanguineous -Wound Margin Distinct, Outline Attached -Granulation Amt Medium (34-66%) -Granulation Quality Red -Necrosis Amt Medium (34-66%) -Necrotic Tissue Type Adherent Slough -Structure Exposed N/A -Texture (Raul-wound Skin Appearance) Scarring -Moisture (Raul-wound Skin Appearance No Abnormality ) -Color (Raul-wound Skin Appearance) Hemosiderin Staining -Temperature (Raul-wound Skin No Abnormality Appearance) (Pt Warm) -Tenderness on Palpation (Raul-wound No Skin Appearance) -Ulcer Cleansing Wound Cleanser -Foul Odor after Cleansing No -Anesthetic Used 4% Lidocaine Solution #2 R Vaz -Current Size (cm) - Length 2.8 -Current Size (cm) - Width 1.9 -Current Size (cm) - Depth 0.2 -Total Square Cm 5.32 -Photo Taken No -Exudate Amt Small -Exudate Type Serosanguineous -Wound Margin Distinct, Outline Attached -Granulation Amt Medium (34-66%) -Granulation Quality Red -Necrosis Amt Medium (34-66%) -Necrotic Tissue Type Adherent Slough -Structure Exposed N/A -Texture (Raul-wound Skin Appearance) Scarring -Moisture (Raul-wound Skin Appearance No Abnormality ) -Color (Raul-wound Skin Appearance) Hemosiderin Staining -Temperature (Raul-wound Skin No Abnormality Appearance) (Pt Warm) -Tenderness on Palpation (Raul-wound No Skin Appearance) -Ulcer Cleansing Wound Cleanser -Foul Odor after Cleansing No -Anesthetic Used 4% Lidocaine Solution [Edema Assessment] -Right Calf (cm) 40.5 -Right Ankle (cm) 22.5 Musculoskeletal: No Muscle Wasting Neurological: Cranial nerves II-XII grossly intact, Neuro grossly intact Psych/Mental Status: Normal Affect, Appropriate, Alert and oriented to time, place, person, mood and affect Debridement Note Post-Debridement Measurements/Treatment WC - Nurse 2 - General Ulcer CM Notes Start: 06/25/19 08:14 Freq: Status: Active Protocol: Activity Type Activity Date Activity User E-Sign Co-Sign Detail Recorded Client Recorded Date Recorded By Document 06/25/19 09:11 DV [id number] 06/25/19 09:21 DV Document 07/16/19 08:25 DV [id number] 07/16/19 08:30 DV 06/25/19 07/16/19 09:11 08:25 Wound Center Nurse 2 #4 R Lat Met Head -Time 09:18 08:26 -Correct Patient Yes Yes -Correct Side, Site, Position Yes Yes -Correct Procedure Yes Yes -Procedure Performed Yes Yes -Type of Procedure Debridement Debridement -Clinical Debridement Subcutaneous Subcutaneous -Post Debridement Size (cm) - Length 0.3 0.2 -Post Debridement Size (cm) - Width 0.3 0.1 -Post Debridement Size (cm) - Depth 0.2 0.3 -Total Square Cm 0.09 0.02 -Wound/Ulcer Outcome Not Healed Not Healed -Ulcer Cleansing Rinsed/ Rinsed/ Irrigated with Irrigated with Saline Saline -Foul Odor after Cleansing No No -Bioengineered Tissue No No -Bleeding Controlled with Pressure Pressure -Offloading No No -Type of Offloading Surgical Shoe -Treatment Response Procedure Procedure Tolerated Well Tolerated Well #3 LATERAL RLE -Time 09:18 08:27 -Correct Patient Yes Yes -Correct Side, Site, Position Yes Yes -Correct Procedure Yes Yes -Procedure Performed Yes Yes -Type of Procedure Debridement Debridement -Clinical Debridement Subcutaneous Subcutaneous -Post Debridement Size (cm) - Length 1.5 2.2 -Post Debridement Size (cm) - Width 1.5 2.2 -Post Debridement Size (cm) - Depth 0.4 0.3 -Total Square Cm 2.25 4.84 -Wound/Ulcer Outcome Not Healed Not Healed -Ulcer Cleansing Rinsed/ Irrigated with Saline -Foul Odor after Cleansing No -Bioengineered Tissue No -Bleeding Controlled with Pressure -Offloading No -Type of Offloading Surgical Shoe -Treatment Response Procedure Tolerated Well #2 R Vaz -Time 09:20 08:28 -Correct Patient Yes Yes -Correct Side, Site, Position Yes Yes -Correct Procedure Yes Yes -Procedure Performed Yes Yes -Type of Procedure Debridement Debridement -Clinical Debridement Subcutaneous Subcutaneous -Post Debridement Size (cm) - Length 2.3 3.5 -Post Debridement Size (cm) - Width 3.1 2.6 -Post Debridement Size (cm) - Depth 0.3 0.2 -Total Square Cm 7.13 9.10 -Wound/Ulcer Outcome Not Healed Not Healed -Ulcer Cleansing Rinsed/ Irrigated with Saline -Foul Odor after Cleansing No -Bioengineered Tissue No -Bleeding Controlled with Pressure Pressure -Offloading No No -Type of Offloading Surgical Shoe -Treatment Response Procedure Procedure Tolerated Well Tolerated Well Pain Scale: 0-10 Numeric Is Patient Pain Free? Yes Yes Laterality: Right - Lateral calf x2 Type of Debridement: Excisional debridement Anesthesia Used: 5% Lidocaine Gel Depth: Down to and including healthy tissue, in the subcutaneous layer Percentage of wound debrided: 100 Instrument Used: 5mm curette Tissue Removed: Bioburden Severity: Fat Layer Exposed Amount of bleeding with debridement: Mild Bleeding Controlled with: Compression and gauze Patient tolerated procedure well Assessment/Plan Active Problems Traumatic open wound of lower leg (Chronic) Leg swelling (Chronic) Edema of leg (Chronic) Diabetes mellitus (Chronic) Morbid obesity with BMI of 45.0-49.9, adult (Chronic) Diabetic foot wound, Hubbard Grade 1 (Chronic) Ulcer of foot due to diabetes (Chronic) Assessment: This is a 58-year-old female who presented with traumatic wounds on the right lower extremity, of several months duration. We have been using collagen hydrogel topically to the wound and callus overlying the bunion on the right foot. Collagen hydrogel has significantly softened this tissue, allowing serial debridements to eliminate much of the callus tissue. Patient has also been using a pumice stone on a daily basis at home, gently. At this juncture, the ulceration overlying the right bunion is now nearly totally healed. A noninvasive lower extremity arterial study performed about 1 year ago was normal, revealing triphasic waveforms at ankle level bilaterally, normal resting ankle?brachial indices bilaterally, and normal digital-brachial indices bilaterally. Recent laboratory studies have been obtained, dated February 22, with results as follows: White blood count 6.2, hemoglobin 14.1, hematocrit 43.4, platelets 218,000, glucose 143, sodium 137, potassium 4.3, chloride 100, BUN 18, creatinine 0.80, calcium 9.5, total protein 6.6, albumin 3.6, hemoglobin A1c 8.3. The ulcerations on the anterolateral aspect of the right calf have shown little improvement in recent weeks, despite the use of an allograft. Cultures were obtained 2 weekS ago, which were positive for Staphylococcus simulans and Staphylococcus epidermidis. Staph species have been repetitively cultured from the patient's right lower extremity ulcerations. There is concern that these may be pathological staph species. Therefore, a treatment regimen was devised, which will be detailed below. Because of the persisting erythema about the ulcerations of the right calf, a skin substitute was not applied today. Plan: Patient has been counseled as to the appropriate foot care necessary in diabetic patients. We are to continue the use of a post-op shoe for offloading relative to the ulceration of the right foot. Compliance is suspected to be less than optimal. Patient has been given a second surgical shoe, so she will have one available at both home and at her place of employment. She has also obtained new footwear, which appears to be appropriate and no longer applying pressure to pressure points of her feet. Patient has been advised to optimize her glycemic control. Adequate nutrition has been advised. We are to continue the use of collagen hydrogel topically relative to the ulceration of the right foot, which is now nearly totally healed. She is also to continue using a pumice stone gently to the right foot callus on a daily basis. Haily is to be continued on a daily basis to the ulcerations on the right anterolateral calf. With respect to the positive cultures for staph species, a decolonization protocol has been initiated, and will be continued. The patient has been prescribed chlorhexidine mouthwash 0.12% for gargle twice daily. Chlorhexidine 4% has been prescribed for newly showering. Mucopirocin 2% nasal ointment has been prescribed for intranasal administration twice daily. Bactrim double strength has been prescribed for oral intake twice daily, and has been completed. This aggressive regimen is designed to eradicate the suspected pathogenic Staphylococcus colonization of her wounds, which is felt to be delaying wound healing. The patient is to return in 1 week for reassessment. The patient is to continue wearing her graduated compression stockings of 20 to 30 mmHg compression on a daily basis. The patient is to continue elevating her legs as much as possible. She is to avoid prolonged idle sitting. The patient has been encouraged to assure adequate nutrition. Optimizing glycemic control has also been advised. Weight loss has also been recommended. Influenza vaccine was not administered today. The patient is not a smoker. Patient weighs 265 pounds. She stands 5 feet 4 inches tall. Her BMI is 45.5, which places her in a class III category. Weight loss has been recommended, and collaboration with the patient's primary care physician has been recommended.
== END 2019-07-23 23:59 ==
LOC: WC 08:00
PROVIDERS: Family Provider Nurse Practitioner Primary Care; PCP Nurse Practitioner Primary Care; Referring Provider Surgery; Visit Provider Surgery
DX: E11.622 Type 2 diabetes mellitus with other skin ulcer (principal); E11.621 Type 2 diabetes mellitus with foot ulcer; R60.0 Localized edema; S81.801D Unspecified open wound, right lower leg, subsequent encounter; L97.212 Non-pressure chronic ulcer of right calf with fat layer exposed; L97.412 Non-pressure chronic ulcer of right heel and midfoot with fat layer exposed; W22.8XXD Striking against or struck by other objects, subsequent encounter; M79.89 Other specified soft tissue disorders; Z68.42 Body mass index [BMI] 45.0-49.9, adult; E66.01 Morbid (severe) obesity due to excess calories; J44.9 Chronic obstructive pulmonary disease, unspecified; I25.10 Atherosclerotic heart disease of native coronary artery without angina pectoris; M51.16 Intervertebral disc disorders with radiculopathy, lumbar region; Z79.899 Other long term (current) drug therapy; Z79.4 Long term (current) use of insulin; Z79.82 Long term (current) use of aspirin; Z87.891 Personal history of nicotine dependence; M21.611 Bunion of right foot
CPT/HCPCS: 11042; 87070; 87075; 87077; 87186; 87205; 87640

== ENCOUNTER → 2019-08-05 09:06 | Outpatient (CLI) | payer OTHER, SELFPAY ==
[2019-07-30 08:21] VITALS: BMI 44.9
[2019-08-05 09:59] LABS: Hematocrit 41.3 % (37-47); Hemoglobin 13.2 g/dL (12.0-15.0); Mean Corpuscular Hgb 29.1 pg (27.0-32.0); Mean Corpuscular Volume 91.2 fL (81-99); Platelet Count 181 K/mm3 (150-450); RBC Distribution Width CV 14.6 % (11.6-14.6); RBC Distribution Width SD 47.6 fl (35.1-43.9); Red Blood Count 4.53 M/mm3 (4.2-5.4)
[2019-08-05 10:09] LABS: Hemoglobin A1c 8.9 % (4.2-6.3)
[2019-08-05 10:14] LABS: ALB/GLOB Ratio 1.2 RATIO (0.9-2.4); AST(SGOT) 32 U/L (15-37); Alanine Aminotransfer ALT/SGPT 47 U/L (13-56); Albumin, Serum 3.8 g/dL (3.2-5.0); Alkaline Phosphatase 70 U/L (45-117); Anion Gap 6 (5-15); BUN 19 mg/dL (7-18); BUN/Creat Ratio 23.1 RATIO (10-20); Chloride 103 mmol/L (98-107); Creatinine, Serum 0.82 mg/dL (0.55-1.02); EST Glomerular Filtration Rate 75 mL/min (>60); Est Glom Filt Rate - Afr Amer 91 mL/min (>60); Globulin 3.2 g/dL (2.2-4.2); Glucose 172 mg/dL (74-106); Potassium 4.5 mmol/L (3.5-5.1); Prealbumin 31.2 mg/dL (20.0-40.0); Sodium Level 136 mmol/L (136-145)
== END ==
PROVIDERS: PCP Nurse Practitioner Primary Care; Referring Provider Surgery; Visit Provider Surgery
DX: E11.9 Type 2 diabetes mellitus without complications (principal); E66.9 Obesity, unspecified; J44.9 Chronic obstructive pulmonary disease, unspecified; I25.10 Atherosclerotic heart disease of native coronary artery without angina pectoris; L03.90 Cellulitis, unspecified
CPT/HCPCS: 36415; 80053; 83036; 84134; 85027

== ENCOUNTER 2019-08-20 08:00 | Outpatient (RCR) | payer OTHER, SELFPAY ==
[2019-07-24 00:32] VITALS: BP 136/73; PULSE 103; RESP 18; TEMP 36.4
[2019-07-30 08:21] VITALS: BP 153/80; PULSE 116; RESP 18; TEMP 36.6; BMI 44.9
--- NOTE | 2019-07-30 09:33 | HP.PCM_ITS ---
(1) Traumatic open wound of lower leg Status: Chronic Current Visit: Yes Qualifiers: Encounter type: subsequent encounter Laterality: right Qualified Code(s): S81.801D - Unspecified open wound, right lower leg, subsequent encounter Code(s): S81.809A - Unspecified open wound, unspecified lower leg, initial encounter (2) Leg swelling Status: Chronic Current Visit: Yes Code(s): M79.89 - Other specified soft tissue disorders (3) Edema of leg Status: Chronic Current Visit: Yes Code(s): R60.0 - Localized edema (4) Diabetes mellitus Status: Chronic Current Visit: Yes Qualifiers: Diabetes mellitus type: type 2 Code(s): E11.9 - Type 2 diabetes mellitus without complications (5) Morbid obesity with BMI of 45.0-49.9, adult Status: Chronic Current Visit: Yes Code(s): E66.01 - Morbid (severe) obesity due to excess calories; Z68.42 - Body mass index (BMI) 45.0-49.9, adult (6) COPD (chronic obstructive pulmonary disease) Status: Chronic Current Visit: No Code(s): J44.9 - Chronic obstructive pulmonary disease, unspecified (7) Coronary artery arteriosclerosis Status: Chronic Current Visit: No Code(s): I25.10 - Atherosclerotic heart disease of [place] coronary artery without angina pectoris (8) Diabetic foot wound, Hubbard Grade 1 Status: Resolved Current Visit: Yes (9) Ulcer of foot due to diabetes Status: Chronic Current Visit: Yes Qualifiers: Diabetic foot ulcer location: midfoot Diabetes mellitus type: type 2 Laterality: right Code(s): E11.621 - Type 2 diabetes mellitus with foot ulcer; L97.509 - Non- pressure chronic ulcer of other part of unspecified foot with unspecified severity (10) Lumbar disc disease with radiculopathy Status: Chronic Current Visit: No Code(s): M51.16 - Intervertebral disc disorders with radiculopathy, lumbar region History of Present Illness Date of Service: 07/30/19 Chief Complaint: Traumatic open wound of the right lower extremity, Diabetic right foot wound - Hubbard Grade 1 History of Wound: This is a 58-year-old diabetic female who has been previously treated in our facility for a traumatic wound on the left lower extremity. She presented this time with wounds in her right lower extremity. There are 2 wounds involving the right calf, which are traumatic in origin. They are located on the right anterior tibial surface and on the right lateral calf. These occurred due to impact with a car door in December 2018. Patient has been using collagen hydrogel topically. She also has a more recent ulceration on the right foot, located overlying a bunion, which has been present for only several weeks. According the patient, this has occurred as a result of a new pair of sneakers, which she obtained at a retail establishment. The patient is known to be diabetic, and her blood sugars appear to be reasonably well controlled, based upon the patient's account. The previous wound in the left lower extremity has remained healed. The patient has continued to implement conservative treatment measures previously recommended, including leg elevation, avoidance of idle standing and sitting, active lifestyle, attempts at weight loss, and the use of graduated compression stockings on a daily basis, of 20 to 30 mmHg compression. Past Medical History Past Medical History: Chronic Problems Traumatic open wound of lower leg (Chronic) Leg swelling (Chronic) Edema of leg (Chronic) Diabetes mellitus (Chronic) Morbid obesity with BMI of 45.0-49.9, adult (Chronic) COPD (chronic obstructive pulmonary disease) (Chronic) Coronary artery arteriosclerosis (Chronic) Ulcer of foot due to diabetes (Chronic) Lumbar disc disease with radiculopathy (Chronic) Surgical History: - - The patient has a history of coronary artery stent placement. She has undergone open reduction and internal fixation of a left tibia fracture. She underwent right meniscus repair in the past. She is a Ab0. Allergies/Adverse Reactions: Allergies bee venom protein (honey bee) Adverse Reaction (Verified 03/19/19 09:02) Swelling Home Medications: Ambulatory Orders Medication Instructions Recorded Aspirin E.C. [Ecotrin] 81 mg PO DAILY@0800 09/03/13 Hydrocodone/Acetaminophen [Vicodin 1 - 2 tablet PO Q6H PRN PRN 09/03/13 5-300 mg Tablet] Lisinopril 10 mg PO DAILY 09/03/13 Metformin [Metformin HCl] 1,000 mg PO BID 09/03/13 Metoprolol Tartrate 50 mg PO DAILY 09/03/13 Dulaglutide [Trulicity] 0.75 mg SQ 01/02/18 Fluticasone/Vilanterol [Breo 1 each IH 01/02/18 Ellipta 200-25 Mcg INH] Insulin Glargine,Hum.rec.anlog 56 unit BID 01/02/18 [Lantus] Sitagliptin Phosphate [Januvia] 25 mg PO DAILY 01/02/18 Tiotropium [place] [Spiriva] 18 mcg IH 01/02/18 - Family History Paternal - - The patient's father at the age of 78 with history of chronic obstructive pulmonary disease. The patient's mother at the age of 84 with history of chronic obstructive pulmonary disease. Smoking Status: Former smoker Tobacco Use: Non-smoker Review of Systems Constitutional: Denies: Chills, Fever, Weight Change Eyes: Denies: Pain, Vision Change HEENT: Denies: Difficulty Hearing, Difficulty Swallowing, Sinus Congestion Cardiovascular: Denies: Chest Pain, Palpitations Respiratory: Denies: Cough, Shortness of Breath Gastrointestinal: Denies: Diarrhea, Nausea, Vomiting Genitourinary: Denies: Dysuria, Hematuria Endocrine: Denies: Heat/ Cold Intolerance, Polydipsia, Polyuria Hematologic/ Lymphatic: Denies: Easy Bruising, Easy Bleeding - Physical Exam Vital Signs Temp Pulse Resp BP 97.8 F 116 H 18 153/80 H 07/30/19 08:21 07/30/19 08:21 07/30/19 08:21 07/30/19 08:21 General: Alert, Oriented x3, Cooperative, No apparent distress, Well developed, Well nourished, - - The patient is morbidly obese. HEENT: Atraumatic, PERRLA, EOMI, Normocephalic Oral: Moist Mucosa Neck: No JVD Lungs: Normal air movement Abdomen: Non-Distended, Obese Extremities: No clubbing, No cyanosis, No Calf Tenderness, - - Minimal swelling and edema are noted in the right lower extremity. There are 2 ulcerations on the right lateral calf, with little change from recent previous visits. There is a mild amount of bioburden. Ketty-ulcer erythema persists. Dimensions of the ulcerations are documented elsewhere. The ulceration overlying the right bunion is now completely healed and epithelialized. Wound Measurements and Assessment WC - Nurse 1 - General Ulcer Measurement Start: 07/30/19 08:20 Freq: Status: Active Protocol: Activity Type Activity Date Activity User E-Sign Co-Sign Detail Recorded Client Recorded Date Recorded By Document 07/30/19 08:21 PL [id number] 07/30/19 08:28 PL 07/30/19 08:21 Wound Center Nurse 1 [Ulcer Assessment] #4 R Lat Met Head -Combined with other wound No -Current Size (cm) - Length 0 -Current Size (cm) - Width 0 -Current Size (cm) - Depth 0 -Total Square Cm 0 -Photo Taken No -Epithelialization Large 67-100% -Tunneling No -Undermining/Tunneling No -Circular Undermining No -Ulcer Cleansing Rinsed/ Irrigated with Saline -Foul Odor after Cleansing No #3 LATERAL RLE -Combined with other wound No -Current Size (cm) - Length 3 -Current Size (cm) - Width 2.1 -Current Size (cm) - Depth 0.2 -Total Square Cm 6.3 -Photo Taken No -Tunneling No -Undermining/Tunneling No -Circular Undermining No -Exudate Amt Medium -Exudate Type Serosanguineous -Granulation Amt Large (67-100%) -Granulation Quality Pale,Red -Slough/Fibrin Yes -Necrosis Amt Small (1-33%) -Necrotic Tissue Type Eschar -Temperature (Ketty-wound Skin No Abnormality Appearance) (Pt Warm) -Tenderness on Palpation (Ketty-wound Yes Skin Appearance) -Ulcer Cleansing Rinsed/ Irrigated with Saline -Anesthetic Used 4% Lidocaine Solution #2 R Vaz -Combined with other wound No -Current Size (cm) - Length 1.3 -Current Size (cm) - Width 1.4 -Current Size (cm) - Depth 0.2 -Total Square Cm 1.82 -Photo Taken No -Epithelialization None Present -Tunneling No -Undermining/Tunneling No -Exudate Amt Medium -Exudate Type Serosanguineous -Granulation Amt Large (67-100%) -Granulation Quality Pale,Red -Slough/Fibrin Yes -Necrosis Amt Small (1-33%) -Necrotic Tissue Type Eschar -Color (Ketty-wound Skin Appearance) Erythema -Temperature (Ketty-wound Skin No Abnormality Appearance) (Pt Warm) -Tenderness on Palpation (Ketty-wound No Skin Appearance) -Ulcer Cleansing Rinsed/ Irrigated with Saline -Anesthetic Used 4% Lidocaine Solution WC - Nurse 2 - General Ulcer CM Notes Start: 07/30/19 08:20 Freq: Status: Active Protocol: Activity Type Activity Date Activity User E-Sign Co-Sign Detail Recorded Client Recorded Date Recorded By Document 07/30/19 08:53 DV [id number] 07/30/19 09:01 DV 07/30/19 08:53 Wound Center Nurse 2 [Procedure/Treatment] #4 R Lat Met Head -Time 08:53 -Correct Patient Yes -Correct Side, Site, Position Yes -Correct Procedure No -Procedure Performed No -Post Debridement Size (cm) - Length 0 -Post Debridement Size (cm) - Width 0 -Post Debridement Size (cm) - Depth 0 -Total Square Cm 0 -Wound/Ulcer Outcome Healed- Epithelialized #3 LATERAL RLE -Time 08:54 -Correct Patient Yes -Correct Side, Site, Position Yes -Correct Procedure Yes -Procedure Performed Yes -Type of Procedure Debridement -Clinical Debridement Subcutaneous -Post Debridement Size (cm) - Length 1.5 -Post Debridement Size (cm) - Width 1.5 -Post Debridement Size (cm) - Depth 0.3 -Total Square Cm 2.25 -Wound/Ulcer Outcome Not Healed -Ulcer Cleansing Rinsed/ Irrigated with Saline -Foul Odor after Cleansing No -Bioengineered Tissue No -Bleeding Controlled with Pressure -Offloading No -Treatment Response Procedure Tolerated Well #2 R Vaz -Time 08:54 -Correct Patient Yes -Correct Side, Site, Position Yes -Correct Procedure Yes -Procedure Performed Yes -Type of Procedure Debridement -Clinical Debridement Subcutaneous -Post Debridement Size (cm) - Length 2.8 -Post Debridement Size (cm) - Width 2.2 -Post Debridement Size (cm) - Depth 0.2 -Total Square Cm 6.16 -Wound/Ulcer Outcome Not Healed -Ulcer Cleansing Rinsed/ Irrigated with Saline -Foul Odor after Cleansing No -Bioengineered Tissue No -Bleeding Controlled with Pressure -Type of Offloading Surgical Shoe -Treatment Response Procedure Tolerated Well [See Physician Procedure note for Specifics] Pain Scale: 0-10 Numeric [Pain] -Is Patient Pain Free? Yes Musculoskeletal: No Muscle Wasting Neurological: Cranial nerves II-XII grossly intact, Neuro grossly intact Psych/Mental Status: Normal Affect, Appropriate, Alert and oriented to time, place, person, mood and affect Debridement Note Post-Debridement Measurements/Treatment WC - Nurse 2 - General Ulcer CM Notes Start: 07/30/19 08:20 Freq: Status: Active Protocol: Activity Type Activity Date Activity User E-Sign Co-Sign Detail Recorded Client Recorded Date Recorded By Document 07/30/19 08:53 DV [id number] 07/30/19 09:01 DV 07/30/19 08:53 Wound Center Nurse 2 #4 R Lat Met Head -Time 08:53 -Correct Patient Yes -Correct Side, Site, Position Yes -Correct Procedure No -Procedure Performed No -Post Debridement Size (cm) - Length 0 -Post Debridement Size (cm) - Width 0 -Post Debridement Size (cm) - Depth 0 -Total Square Cm 0 -Wound/Ulcer Outcome Healed- Epithelialized #3 LATERAL RLE -Time 08:54 -Correct Patient Yes -Correct Side, Site, Position Yes -Correct Procedure Yes -Procedure Performed Yes -Type of Procedure Debridement -Clinical Debridement Subcutaneous -Post Debridement Size (cm) - Length 1.5 -Post Debridement Size (cm) - Width 1.5 -Post Debridement Size (cm) - Depth 0.3 -Total Square Cm 2.25 -Wound/Ulcer Outcome Not Healed -Ulcer Cleansing Rinsed/ Irrigated with Saline -Foul Odor after Cleansing No -Bioengineered Tissue No -Bleeding Controlled with Pressure -Offloading No -Treatment Response Procedure Tolerated Well #2 R Vaz -Time 08:54 -Correct Patient Yes -Correct Side, Site, Position Yes -Correct Procedure Yes -Procedure Performed Yes -Type of Procedure Debridement -Clinical Debridement Subcutaneous -Post Debridement Size (cm) - Length 2.8 -Post Debridement Size (cm) - Width 2.2 -Post Debridement Size (cm) - Depth 0.2 -Total Square Cm 6.16 -Wound/Ulcer Outcome Not Healed -Ulcer Cleansing Rinsed/ Irrigated with Saline -Foul Odor after Cleansing No -Bioengineered Tissue No -Bleeding Controlled with Pressure -Type of Offloading Surgical Shoe -Treatment Response Procedure Tolerated Well Pain Scale: 0-10 Numeric Is Patient Pain Free? Yes Laterality: Right - Lateral calf Type of Debridement: Excisional debridement Anesthesia Used: 5% Lidocaine Gel Depth: Down to and including healthy tissue, in the subcutaneous layer Percentage of wound debrided: 100 Instrument Used: 5mm curette Tissue Removed: Bioburden and nonviable tissue Severity: Fat Layer Exposed Amount of bleeding with debridement: Mild Bleeding Controlled with: Compression and gauze Patient tolerated procedure well - Though well-tolerated, the patient did experience some discomfort during the debridement process. Assessment/Plan Active Problems Traumatic open wound of lower leg (Chronic) Leg swelling (Chronic) Edema of leg (Chronic) Diabetes mellitus (Chronic) Morbid obesity with BMI of 45.0-49.9, adult (Chronic) Ulcer of foot due to diabetes (Chronic) Assessment: This is a 58-year-old female who presented with traumatic wounds on the right lower extremity, of several months duration. We have been using collagen hydrogel topically to the wound and callus overlying the bunion on the right foot. Collagen hydrogel has significantly softened this tissue, allowing serial debridements to eliminate much of the callus tissue. Patient has also been using a pumice stone on a daily basis at home, gently. At this juncture, the ulceration overlying the right bunion is now totally healed. A noninvasive lower extremity arterial study performed about 1 year ago was normal, revealing triphasic waveforms at ankle level bilaterally, normal resting ankle?brachial indices bilaterally, and normal digital-brachial indices bilaterally. Recent laboratory studies have been obtained, dated February 22, 2019, with results as follows: White blood count 6.2, hemoglobin 14.1, hematocrit 43.4, platelets 218,000, glucose 143, sodium 137, potassium 4.3, chloride 100, BUN 18, creatinine 0.80, calcium 9.5, total protein 6.6, albumin 3.6, hemoglobin A1c 8.3. The ulcerations on the anterolateral aspect of the right calf have shown little improvement in recent weeks, despite the use of an allograft. Cultures were obtained several weeks ago, which were positive for Staphylococcus simulans and Staphylococcus epidermidis. Staph species have been repetitively cultured from the patient's right lower extremity ulcerations. There is concern that these may be pathological staph species. Therefore, a treatment regimen was devised, which will be detailed below. Because of the persisting erythema about the ulcerations of the right calf, a skin substitute was not applied today. Plan: Patient has been counseled as to the appropriate foot care necessary in diabetic patients. We are to continue the use of a post-op shoe for offloading relative to the ulceration of the right foot. The right foot ulceration is now completely healed. The patient is to continue with offloading measures in this regard. She has also obtained new footwear, which appears to be appropriate and no longer applying pressure to pressure points of her feet. Patient has been advised to optimize her glycemic control. Adequate nutrition has been advised. She is to continue using a pumice stone GENTLY to the right foot callus on a daily basis. We are to transition to the use of Collagenase Santyl topically to the ulcerations on the right lateral calf. This has proved to be of benefit to the patient's ulcerations in the past. Furthermore, because of the persisting erythema surrounding the ulcerations of the right lateral calf, swab cultures have been obtained today for both aerobic and anaerobic bacterial growth. We will await these results. A decolonization protocol has been initiated, and will be continued. The patient has been prescribed chlorhexidine mouthwash 0.12% for gargle twice daily. Chlorhexidine 4% has been prescribed for newly showering. Mucopirocin 2% nasal ointment has been prescribed for intranasal a dministration twice daily. This aggressive regimen is designed to eradicate the suspected pathogenic Staphylococcus colonization of her wounds, which is felt to be delaying wound healing. The patient is to return in 2 weeks for reassessment. The patient is to continue wearing her graduated compression stockings of 20 to 30 mmHg compression on a daily basis. The patient is to continue elevating her legs as much as possible. She is to avoid prolonged idle sitting. The patient has been encouraged to assure adequate nutrition. Optimizing glycemic control has also been advised. Weight loss has also been recommended. We are to seek approval for the use of PuraPly, given the rather chronic nature of colonization of her right calf wounds, and consideration that the antibacterial component of the PuraPly may be of benefit in eradicating the cellulitic process. Influenza vaccine was not administered today. The patient is not a smoker. Patient weighs 265 pounds. She stands 5 feet 4 inches tall. Her BMI is 45.5, which places her in a class III category. Weight loss has been recommended, and collaboration with the patient's primary care physician has been recommended.
[2019-07-31 12:26] LABS: M R Staph aureus DNA By PCR Negative (Negative); Probe Check PASS; Specimen Processing Control PASS; Staph aureus DNA By PCR NEGATIVE (Negative)
[2019-08-13 08:08] VITALS: BP 146/82; PULSE 126; RESP 18; TEMP 36.1; BMI 44.9
--- NOTE | 2019-08-13 11:21 | PCM.WC.HP ---
(1) Traumatic open wound of lower leg Status: Chronic Current Visit: Yes Qualifiers: Encounter type: subsequent encounter Laterality: right Qualified Code(s): S81.801D - Unspecified open wound, right lower leg, subsequent encounter Code(s): S81.809A - Unspecified open wound, unspecified lower leg, initial encounter (2) Leg swelling Status: Chronic Current Visit: Yes Code(s): M79.89 - Other specified soft tissue disorders (3) Edema of leg Status: Chronic Current Visit: Yes Code(s): R60.0 - Localized edema (4) Diabetes mellitus Status: Chronic Current Visit: Yes Qualifiers: Diabetes mellitus type: type 2 Code(s): E11.9 - Type 2 diabetes mellitus without complications (5) Morbid obesity with BMI of 45.0-49.9, adult Status: Chronic Current Visit: Yes Code(s): E66.01 - Morbid (severe) obesity due to excess calories; Z68.42 - Body mass index (BMI) 45.0-49.9, adult (6) COPD (chronic obstructive pulmonary disease) Status: Chronic Current Visit: Yes Code(s): J44.9 - Chronic obstructive pulmonary disease, unspecified (7) Coronary artery arteriosclerosis Status: Chronic Current Visit: No Code(s): I25.10 - Atherosclerotic heart disease of [place] coronary artery without angina pectoris (8) Diabetic foot wound, [place] Grade 1 Status: Resolved Current Visit: Yes (9) Ulcer of foot due to diabetes Status: Chronic Current Visit: Yes Qualifiers: Diabetic foot ulcer location: midfoot Diabetes mellitus type: type 2 Laterality: right Code(s): E11.621 - Type 2 diabetes mellitus with foot ulcer; L97.509 - Non-pressure chronic ulcer of other part of unspecified foot with unspecified severity (10) Lumbar disc disease with radiculopathy Status: Chronic Current Visit: No Code(s): M51.16 - Intervertebral disc disorders with radiculopathy, lumbar region History of Present Illness Date of Service: 08/13/19 Chief Complaint: Traumatic open wound of the right lower extremity, Diabetic right foot wound - Hubbard Grade 1 History of Wound: This is a 58-year-old diabetic female who has been previously treated in our facility for a traumatic wound on the left lower extremity. She presented this time with wounds in her right lower extremity. There are 2 wounds involving the right calf, which are traumatic in origin. They are located on the right anterior tibial surface and on the right lateral calf. These occurred due to impact with a car door in December 2018. Patient has been using collagen hydrogel topically. She also has a more recent ulceration on the right foot, located overlying a bunion, which has been present for only several weeks. According the patient, this has occurred as a result of a new pair of sneakers, which she obtained at a retail establishment. The patient is known to be diabetic, and her blood sugars appear to be reasonably well controlled, based upon the patient's account. The previous wound in the left lower extremity has remained healed. The patient has continued to implement conservative treatment measures previously recommended, including leg elevation, avoidance of idle standing and sitting, active lifestyle, attempts at weight loss, and the use of graduated compression stockings on a daily basis, of 20 to 30 mmHg compression. Past Medical History Past Medical History: Chronic Problems Traumatic open wound of lower leg (Chronic) Leg swelling (Chronic) Edema of leg (Chronic) Diabetes mellitus (Chronic) Morbid obesity with BMI of 45.0-49.9, adult (Chronic) COPD (chronic obstructive pulmonary disease) (Chronic) Coronary artery arteriosclerosis (Chronic) Ulcer of foot due to diabetes (Chronic) Lumbar disc disease with radiculopathy (Chronic) Surgical History: - - The patient has a history of coronary artery stent placement. She has undergone open reduction and internal fixation of a left tibia fracture. She underwent right meniscus repair in the past. She is a Ab0. Allergies/Adverse Reactions: Allergies bee venom protein (honey bee) Adverse Reaction (Verified 03/19/19 09:02) Swelling Home Medications: Ambulatory Orders Medication Instructions Recorded Aspirin E.C. [Ecotrin] 81 mg PO DAILY@0800 09/03/13 Hydrocodone/Acetaminophen [Vicodin 1 - 2 tablet PO Q6H PRN PRN 09/03/13 5-300 mg Tablet] Lisinopril 10 mg PO DAILY 09/03/13 Metformin [Metformin HCl] 1,000 mg PO BID 09/03/13 Metoprolol Tartrate 50 mg PO DAILY 09/03/13 Dulaglutide [Trulicity] 0.75 mg SQ 01/02/18 Fluticasone/Vilanterol [Breo 1 each IH 01/02/18 Ellipta 200-25 Mcg INH] Insulin Glargine,Hum.rec.anlog 56 unit BID 01/02/18 [Lantus] Sitagliptin Phosphate [Januvia] 25 mg PO DAILY 01/02/18 Tiotropium [place] [Spiriva] 18 mcg IH 01/02/18 - Family History Paternal - - The patient's father at the age of 78 with history of chronic obstructive pulmonary disease. The patient's mother at the age of 84 with history of chronic obstructive pulmonary disease. Smoking Status: Former smoker Tobacco Use: Non-smoker Review of Systems Constitutional: Denies: Chills, Fever, Weight Change Eyes: Denies: Pain, Vision Change HEENT: Denies: Difficulty Hearing, Difficulty Swallowing, Sinus Congestion Cardiovascular: Denies: Chest Pain, Palpitations Respiratory: Denies: Cough, Shortness of Breath Gastrointestinal: Denies: Diarrhea, Nausea, Vomiting Genitourinary: Denies: Dysuria, Hematuria Endocrine: Denies: Heat/ Cold Intolerance, Polydipsia, Polyuria Hematologic/ Lymphatic: Denies: Easy Bruising, Easy Bleeding - Physical Exam Vital Signs Temp Pulse Resp BP 96.9 F L 126 H 18 146/82 H 08/13/19 08:08 08/13/19 08:08 08/13/19 08:08 08/13/19 08:08 General: Alert, Oriented x3, Cooperative, No apparent distress, Well developed, Well nourished HEENT: Atraumatic, PERRLA, EOMI, Normocephalic Oral: Moist Mucosa Neck: No JVD Lungs: Normal air movement Abdomen: Non-Distended, Obese Extremities: No clubbing, No cyanosis, No edema, No Calf Tenderness, - - There is no significant swelling or edema in the patient's right lower extremity. She has tandem ulcerations on the right lateral calf. Redness and erythema persists, but less prominent than previously noted. The ulcerations are pink, with a moderate amount of nonviable tissue and bioburden. Dimensions are documented elsewhere. Wound Measurements and Assessment WC - Nurse 1 - General Ulcer Measurement Start: 07/30/19 08:20 Freq: Status: Active Protocol: Activity Type Activity Date Activity User E-Sign Co-Sign Detail Recorded Client Recorded Date Recorded By Document 08/13/19 08:08 PATSY [id number] 08/13/19 08:17 PL 08/13/19 08:08 Wound Center Nurse 1 [Ulcer Assessment] #3 LATERAL RLE -Combined with other wound No -Current Size (cm) - Length 1.7 -Current Size (cm) - Width 1.5 -Current Size (cm) - Depth 0.3 -Total Square Cm 2.55 -Photo Taken No -Epithelialization None Present -Tunneling No -Undermining/Tunneling No -Exudate Amt Medium -Exudate Type Serosanguineous -Granulation Amt Small (1-33%) -Granulation Quality [place] -Slough/Fibrin Yes -Necrosis Amt Large (67-100%) -Necrotic Tissue Type Adherent Slough -Texture (Ketty-wound Skin Appearance) No Abnormality -Moisture (Ketty-wound Skin Appearance No Abnormality ) -Color (Ketty-wound Skin Appearance) No Abnormality -Temperature (Ketty-wound Skin No Abnormality Appearance) (Pt Warm) -Ulcer Cleansing Rinsed/ Irrigated with Saline -Anesthetic Used 4% Lidocaine Solution #2 R Vaz -Combined with other wound No -Current Size (cm) - Length 2.9 -Current Size (cm) - Width 2.5 -Current Size (cm) - Depth 0.2 -Total Square Cm 7.25 -Photo Taken No -Epithelialization None Present -Tunneling No -Undermining/Tunneling No -Circular Undermining No -Exudate Amt Medium -Exudate Type Serosanguineous -Granulation Amt Small (1-33%) -Granulation Quality [place] -Slough/Fibrin Yes -Necrosis Amt Large (67-100%) -Necrotic Tissue Type Adherent Slough -Texture (Ketty-wound Skin Appearance) No Abnormality -Moisture (Ketty-wound Skin Appearance No Abnormality ) -Color (Ketty-wound Skin Appearance) No Abnormality -Temperature (Ketty-wound Skin No Abnormality Appearance) (Pt Warm) -Tenderness on Palpation (Ketty-wound No Skin Appearance) -Ulcer Cleansing Rinsed/ Irrigated with Saline -Anesthetic Used 4% Lidocaine Solution WC - Nurse 2 - General Ulcer CM Notes Start: 07/30/19 08:20 Freq: Status: Active Protocol: Activity Type Activity Date Activity User E-Sign Co-Sign Detail Recorded Client Recorded Date Recorded By Document 08/13/19 08:48 DV [id number] 08/13/19 08:51 DV 08/13/19 08:48 Wound Center Nurse 2 [Procedure/Treatment] #3 LATERAL RLE -Time 08:48 -Correct Patient Yes -Correct Side, Site, Position Yes -Correct Procedure Yes -Procedure Performed Yes -Type of Procedure Debridement -Clinical Debridement Subcutaneous -Post Debridement Size (cm) - Length 1.6 -Post Debridement Size (cm) - Width 1.9 -Post Debridement Size (cm) - Depth 0.4 -Total Square Cm 3.04 -Wound/Ulcer Outcome Not Healed -Ulcer Cleansing Rinsed/ Irrigated with Saline -Foul Odor after Cleansing No -Bioengineered Tissue No -Bleeding Controlled with Pressure -Offloading No -Treatment Response Procedure Tolerated Well #2 R Vaz -Time 08:49 -Correct Patient Yes -Correct Side, Site, Position Yes -Correct Procedure Yes -Procedure Performed Yes -Type of Procedure Debridement -Clinical Debridement Subcutaneous -Post Debridement Size (cm) - Length 3.0 -Post Debridement Size (cm) - Width 2.9 -Post Debridement Size (cm) - Depth 0.2 -Total Square Cm 8.70 -Wound/Ulcer Outcome Not Healed -Ulcer Cleansing Rinsed/ Irrigated with Saline -Foul Odor after Cleansing Yes -Bioengineered Tissue No -Bleeding Controlled with Pressure -Offloading No -Treatment Response Procedure Tolerated Well [See Physician Procedure note for Specifics] Pain Scale: 0-10 Numeric [Pain] -Is Patient Pain Free? Yes Musculoskeletal: No Muscle Wasting Neurological: Cranial nerves II-XII grossly intact, Neuro grossly intact Psych/Mental Status: Normal Affect, Appropriate, Alert and oriented to time, place, person, mood and affect Debridement Note Post-Debridement Measurements/Treatment WC - Nurse 2 - General Ulcer CM Notes Start: 07/30/19 08:20 Freq: Status: Active Protocol: Activity Type Activity Date Activity User E-Sign Co-Sign Detail Recorded Client Recorded Date Recorded By Document 07/30/19 08:53 DV [id number] 07/30/19 09:01 DV Document 08/13/19 08:48 DV [id number] 08/13/19 08:51 DV 07/30/19 08/13/19 08:53 08:48 Wound Center Nurse 2 #4 R Lat Met Head -Time 08:53 -Correct Patient Yes -Correct Side, Site, Position Yes -Correct Procedure No -Procedure Performed No -Post Debridement Size (cm) - Length 0 -Post Debridement Size (cm) - Width 0 -Post Debridement Size (cm) - Depth 0 -Total Square Cm 0 -Wound/Ulcer Outcome Healed- Epithelialized #3 LATERAL RLE -Time 08:54 08:48 -Correct Patient Yes Yes -Correct Side, Site, Position Yes Yes -Correct Procedure Yes Yes -Procedure Performed Yes Yes -Type of Procedure Debridement Debridement -Clinical Debridement Subcutaneous Subcutaneous -Post Debridement Size (cm) - Length 1.5 1.6 -Post Debridement Size (cm) - Width 1.5 1.9 -Post Debridement Size (cm) - Depth 0.3 0.4 -Total Square Cm 2.25 3.04 -Wound/Ulcer Outcome Not Healed Not Healed -Ulcer Cleansing Rinsed/ Rinsed/ Irrigated with Irrigated with Saline Saline -Foul Odor after Cleansing No No -Bioengineered Tissue No No -Bleeding Controlled with Pressure Pressure -Offloading No No -Treatment Response Procedure Procedure Tolerated Well Tolerated Well #2 R Vaz -Time 08:54 08:49 -Correct Patient Yes Yes -Correct Side, Site, Position Yes Yes -Correct Procedure Yes Yes -Procedure Performed Yes Yes -Type of Procedure Debridement Debridement -Clinical Debridement Subcutaneous Subcutaneous -Post Debridement Size (cm) - Length 2.8 3.0 -Post Debridement Size (cm) - Width 2.2 2.9 -Post Debridement Size (cm) - Depth 0.2 0.2 -Total Square Cm 6.16 8.70 -Wound/Ulcer Outcome Not Healed Not Healed -Ulcer Cleansing Rinsed/ Rinsed/ Irrigated with Irrigated with Saline Saline -Foul Odor after Cleansing No Yes -Bioengineered Tissue No No -Bleeding Controlled with Pressure Pressure -Offloading No -Type of Offloading Surgical Shoe -Treatment Response Procedure Procedure Tolerated Well Tolerated Well Pain Scale: 0-10 Numeric Is Patient Pain Free? Yes Yes Laterality: Right - Lateral calf Type of Debridement: Excisional debridement Anesthesia Used: 5% Lidocaine Gel Depth: Down to and including healthy tissue, in the subcutaneous layer Percentage of wound debrided: 100 Instrument Used: 5mm curette Tissue Removed: Bioburden and nonviable tissue Severity: Fat Layer Exposed Amount of bleeding with debridement: Mild Bleeding Controlled with: Compression and gauze Patient tolerated procedure well Assessment/Plan Active Problems Traumatic open wound of lower leg (Chronic) Leg swelling (Chronic) Edema of leg (Chronic) Diabetes mellitus (Chronic) Morbid obesity with BMI of 45.0-49.9, adult (Chronic) COPD (chronic obstructive pulmonary disease) (Chronic) Ulcer of foot due to diabetes (Chronic) Assessment: This is a 58-year-old female who presented with traumatic wounds on the right lower extremity, of several months duration. The ulceration overlying the right bunion remains completely healed. A noninvasive lower extremity arterial study performed about 1 year ago was normal, revealing triphasic waveforms at ankle level bilaterally, normal resting ankle?brachial indices bilaterally, and normal digital-brachial indices bilaterally. Recent laboratory studies have been obtained, dated February 22, 2019, with results as follows: White blood count 6.2, hemoglobin 14.1, hematocrit 43.4, platelets 218,000, glucose 143, sodium 137, potassium 4.3, chloride 100, BUN 18, creatinine 0.80, calcium 9.5, total protein 6.6, albumin 3.6, hemoglobin A1c 8.3. The ulcerations on the anterolateral aspect of the right calf have shown slight improvement in recent weeks. Cultures were obtained several weeks ago, which were positive for Pseudomonas aeruginosa. Based upon culture and sensitivity results, the patient was placed on Levaquin 750 mg daily, the course of which is now nearly complete. There appears to be significant improvement, though still some slight, residual erythema. The decolonization regimen which had been previously implemented has been discontinued. A battery of diagnostic tests have been recently obtained, with results as follows: Glucose 172, BUN 19, creatinine 0.82, total protein 7.0, albumin 3.8, calcium 9.0, AST 32, alkaline phosphatase 70, ALT 47, total bilirubin 0.40, sodium 136, potassium 4.5, chloride 103, serum prealbumin 31.2, hemoglobin A1c 8.9, white blood count 6.0, hemoglobin 13.2, hematocrit 41.3, platelets 181,000. Plan: Patient has been counseled as to the appropriate foot care necessary in diabetic patients. Appropriate footwear has been implemented, frequent inspection of the patient's feet, appropriate toenail trimming by professional, etc., have been recommended. The right foot ulceration is now completely healed. The patient is to continue with offloading measures in this regard. She has also obtained new footwear, which appears to be appropriate and no longer applying pressure to pressure points of her feet. Patient has been advised to optimize her glycemic control. Adequate nutrition has been advised. We are to continue the use of Collagenase Santyl topically to the ulcerations on the right lateral calf. This has proved to be of benefit to the patient's ulcerations in the past. Furthermore, the patient is to complete her prescription for Levaquin. The patient is to continue wearing her graduated compression stockings of 20 to 30 mmHg compression on a daily basis. The patient is to continue elevating her legs as much as possible. She is to avoid prolonged idle sitting. The patient has been encouraged to assure adequate nutrition. Optimizing glycemic control has also been advised. Weight loss has also been recommended. We are to seek approval for the use of PuraPly, given the rather chronic nature of colonization of her right calf wounds, and consideration that the antibacterial component of the PuraPly may be of benefit in eradicating the cellulitic process. She is to continue the use of collagenase Santyl topically on a daily basis. We are to arrange a visit by telehealth A/V interaction in 1 week. Influenza vaccine was not administered today. The patient is not a smoker. Patient weighs 265 pounds. She stands 5 feet 4 inches tall. Her BMI is 45.5, which places her in a class III category. Weight loss has been recommended, and collaboration with the patient's primary care physician has been recommended.
--- NOTE | 2019-08-20 08:19 | HP.PCM_ITS ---
(1) Leg swelling Status: Chronic Current Visit: Yes Code(s): M79.89 - Other specified soft tissue disorders (2) Edema of leg Status: Chronic Current Visit: Yes Code(s): R60.0 - Localized edema (3) Diabetes mellitus Status: Chronic Current Visit: Yes Qualifiers: Diabetes mellitus type: type 2 Diabetes mellitus complication detail: with other skin ulcer Code(s): E11.9 - Type 2 diabetes mellitus without complications (4) Morbid obesity with BMI of 45.0-49.9, adult Status: Chronic Current Visit: Yes Code(s): E66.01 - Morbid (severe) obesity due to excess calories; Z68.42 - Body mass index (BMI) 45.0-49.9, adult (5) COPD (chronic obstructive pulmonary disease) Status: Chronic Current Visit: Yes Code(s): J44.9 - Chronic obstructive pulmonary disease, unspecified (6) Coronary artery arteriosclerosis Status: Chronic Current Visit: No Code(s): I25.10 - Atherosclerotic heart disease of [place] coronary artery without angina pectoris (7) Diabetic foot wound, Hubbard Grade 1 Status: Resolved Current Visit: Yes (8) Ulcer of foot due to diabetes Status: Chronic Current Visit: Yes Qualifiers: Diabetic foot ulcer location: midfoot Diabetes mellitus type: type 2 Laterality: right Code(s): E11.621 - Type 2 diabetes mellitus with foot ulcer; L97.509 - Non- pressure chronic ulcer of other part of unspecified foot with unspecified severity (9) Lumbar disc disease with radiculopathy Status: Chronic Current Visit: No Code(s): M51.16 - Intervertebral disc disorders with radiculopathy, lumbar region (10) Chronic wound of extremity Status: Chronic Current Visit: Yes (11) Ulcer of calf due to diabetes mellitus Status: Chronic Current Visit: Yes Code(s): E11.622 - Type 2 diabetes mellitus with other skin ulcer; L97.209 - Non-pressure chronic ulcer of unspecified calf with unspecified severity History of Present Illness Date of Service: 08/20/19 Chief Complaint: Chronic open wound of the right lower extremity secondary to diabetes mellitus, Diabetic right foot wound - Hubbard Grade 1 History of Wound: This is a 58-year-old diabetic female who has been previously treated in our facility for a traumatic wound on the left lower extremity. She presented this time with wounds in her right lower extremity. There are 2 wounds involving the right calf, which were initially traumatic in origin. They are located on the right anterior tibial surface and on the right lateral calf. These occurred due to impact with a car door in December 2018. It is felt, however, that the failure of the patient's wounds to heal is due to her longstanding diabetes mellitus. The patient has been using Collagenase Santyl topically. She also developed a more recent ulceration on the right foot, located overlying a bunion, which has now subsequently healed. According the patient, this occurred as a result of a new pair of sneakers, which she obtained at a retail establishment. The patient is known to be diabetic, and her blood sugars appear to be reasonably well controlled, based upon the patient's account. The previous wound in the left lower extremity has remained healed. The patient has continued to implement conservative treatment measures previ ously recommended, including leg elevation, avoidance of idle standing and sitting, active lifestyle, attempts at weight loss, and the use of graduated compression stockings on a daily basis, of 20 to 30 mmHg compression. Past Medical History Past Medical History: Chronic Problems Traumatic open wound of lower leg (Chronic) Leg swelling (Chronic) Edema of leg (Chronic) Diabetes mellitus (Chronic) Morbid obesity with BMI of 45.0-49.9, adult (Chronic) COPD (chronic obstructive pulmonary disease) (Chronic) Coronary artery arteriosclerosis (Chronic) Ulcer of foot due to diabetes (Chronic) Lumbar disc disease with radiculopathy (Chronic) Chronic wound of extremity (Chronic) Ulcer of calf due to diabetes mellitus (Chronic) Surgical History: - - The patient has a history of coronary artery stent placement. She has undergone open reduction and internal fixation of a left tibia fracture. She underwent right meniscus repair in the past. She is a Ab0. Allergies/Adverse Reactions: Allergies bee venom protein (honey bee) Adverse Reaction (Verified 03/19/19 09:02) Swelling Home Medications: Ambulatory Orders Medication Instructions Recorded Aspirin E.C. [Ecotrin] 81 mg PO DAILY@0800 09/03/13 Hydrocodone/Acetaminophen [Vicodin 1 - 2 tablet PO Q6H PRN PRN 09/03/13 5-300 mg Tablet] Lisinopril 10 mg PO DAILY 09/03/13 Metformin [Metformin HCl] 1,000 mg PO BID 09/03/13 Metoprolol Tartrate 50 mg PO DAILY 09/03/13 Dulaglutide [Trulicity] 0.75 mg SQ 01/02/18 Fluticasone/Vilanterol [Breo 1 each IH 01/02/18 Ellipta 200-25 Mcg INH] Insulin Glargine,Hum.rec.anlog 56 unit BID 01/02/18 [Lantus] Sitagliptin Phosphate [Januvia] 25 mg PO DAILY 01/02/18 Tiotropium [place] [Spiriva] 18 mcg IH 01/02/18 - Family History Paternal - - The patient's father at the age of 78 with history of chronic ob structive pulmonary disease. The patient's mother at the age of 84 with history of chronic obstructive pulmonary disease. Smoking Status: Former smoker Tobacco Use: Non-smoker Review of Systems Constitutional: Denies: Chills, Fever, Weight Change Eyes: Denies: Pain, Vision Change HEENT: Denies: Difficulty Hearing, Difficulty Swallowing, Sinus Congestion Cardiovascular: Denies: Chest Pain, Palpitations Respiratory: Denies: Cough, Shortness of Breath Gastrointestinal: Denies: Diarrhea, Nausea, Vomiting Genitourinary: Denies: Dysuria, Hematuria Endocrine: Denies: Heat/ Cold Intolerance, Polydipsia, Polyuria Hematologic/ Lymphatic: Denies: Easy Bruising, Easy Bleeding - Physical Exam Vital Signs Temp Pulse Resp BP 96.9 F L 126 H 18 146/82 H 08/13/19 08:08 08/13/19 08:08 08/13/19 08:08 08/13/19 08:08 General: Alert, Oriented x3, Cooperative, No apparent distress, Well developed, Well nourished, - - The patient is alert, oriented, pleasant, and conversant. Coloration appears to be good and normal. She is observed to be obese. Respirations appear normal and unlabored. Vital signs were not obtained, as the patient is at her home, and does not have either a thermometer or a blood pressure cuff in her possession. HEENT: Atraumatic, PERRLA, EOMI, Normocephalic Neck: No JVD Lungs: Normal air movement - Respirations appear unlabored. Extremities: - - The patient was able to demonstrate the ulcerations on her right anterolateral calf visually using her smart phone. The larger of the 2 ulcerations, the lower ulceration, appears generally pink and healthy in appearance, with apparent granulation tissue present. There appears to be very little bioburden. The more superior of the 2 ulcerations demonstrates a small amount of bioburden and yellowish nonviable tissue. There is minimal erythema about the ulcerations, appearing to be an improvement over previous examinations. The dimensions of the 2 ulcerations appear to be little changed from those which have been previously documented. Skin: No rashes Neurological: Cranial nerves II-XII grossly intact, Neuro grossly intact Psych/Mental Status: Normal Affect, Appropriate, Alert and oriented to time, place, person, mood and affect Debridement Note Post-Debridement Measurements/Treatment WC - Nurse 2 - General Ulcer CM Notes Start: 07/30/19 08:20 Freq: Status: Active Protocol: Activity Type Activity Date Activity User E-Sign Co-Sign Detail Recorded Client Recorded Date Recorded By Document 07/30/19 08:53 DV [id number] 07/30/19 09:01 DV Document 08/13/19 08:48 DV [id number] 08/13/19 08:51 DV 07/30/19 08/13/19 08:53 08:48 Wound Center Nurse 2 #4 R Lat Met Head -Time 08:53 -Correct Patient Yes -Correct Side, Site, Position Yes -Correct Procedure No -Procedure Performed No -Post Debridement Size (cm) - Length 0 -Post Debridement Size (cm) - Width 0 -Post Debridement Size (cm) - Depth 0 -Total Square Cm 0 -Wound/Ulcer Outcome Healed- Epithelialized #3 LATERAL RLE -Time 08:54 08:48 -Correct Patient Yes Yes -Correct Side, Site, Position Yes Yes -Correct Procedure Yes Yes -Procedure Performed Yes Yes -Type of Procedure Debridement Debridement -Clinical Debridement Subcutaneous Subcutaneous -Post Debridement Size (cm) - Length 1.5 1.6 -Post Debridement Size (cm) - Width 1.5 1.9 -Post Debridement Size (cm) - Depth 0.3 0.4 -Total Square Cm 2.25 3.04 -Wound/Ulcer Outcome Not Healed Not Healed -Ulcer Cleansing Rinsed/ Rinsed/ Irrigated with Irrigated with Saline Saline -Foul Odor after Cleansing No No -Bioengineered Tissue No No -Bleeding Controlled with Pressure Pressure -Offloading No No -Treatment Response Procedure Procedure Tolerated Well Tolerated Well #2 R Vaz -Time 08:54 08:49 -Correct Patient Yes Yes -Correct Side, Site, Position Yes Yes -Correct Procedure Yes Yes -Procedure Performed Yes Yes -Type of Procedure Debridement Debridement -Clinical Debridement Subcutaneous Subcutaneous -Post Debridement Size (cm) - Length 2.8 3.0 -Post Debridement Size (cm) - Width 2.2 2.9 -Post Debridement Size (cm) - Depth 0.2 0.2 -Total Square Cm 6.16 8.70 -Wound/Ulcer Outcome Not Healed Not Healed -Ulcer Cleansing Rinsed/ Rinsed/ Irrigated with Irrigated with Saline Saline -Foul Odor after Cleansing No Yes -Bioengineered Tissue No No -Bleeding Controlled with Pressure Pressure -Offloading No -Type of Offloading Surgical Shoe -Treatment Response Procedure Procedure Tolerated Well Tolerated Well Pain Scale: 0-10 Numeric Is Patient Pain Free? Yes Yes No debridement was completed today - This was a telehealth visit. Assessment/Plan Active Problems Traumatic open wound of lower leg (Chronic) Leg swelling (Chronic) Edema of leg (Chronic) Diabetes mellitus (Chronic) Morbid obesity with BMI of 45.0-49.9, adult (Chronic) COPD (chronic obstructive pulmonary disease) (Chronic) Ulcer of foot due to diabetes (Chronic) Chronic wound of extremity (Chronic) Ulcer of calf due to diabetes mellitus (Chronic) Assessment: Today's visit was conducted by means of telehealth, using both audio and visual telecommunication. The patient's consent was obtained. The patient was located at her home. Medical personnel were located at the [facility]. Kirsten, a briefcase sewer, was involved in the patient interaction. The telehealth visit started at 8 AM, and was concluded at 8:23 AM. This is a 58-year-old female who presented with traumatic wounds on the right lower extremity, of several months duration. The ulceration overlying the right bunion remains completely healed. A noninvasive lower extremity arterial study performed about 1 year ago was normal, revealing triphasic waveforms at ankle level bilaterally, normal resting ankle?brachial indices bilaterally, and normal digital-brachial indices bilaterally. The ulcerations on the anterolateral aspect of the right calf have shown slight improvement in recent weeks. Cultures were obtained several weeks ago, which were positive for Pseudomonas aeruginosa. Based upon culture and sensitivity results, the patient was placed on Levaquin 750 mg daily, the course of which is now complete. There appears to be significant improvement, both based upon observation and by the patient's personal account. The erythema appears to be now nearly totally resolved. The Staphylococcus decolonization regimen which had been previously implemented has been discontinued. A battery of diagnostic tests have been recently obtained, with results as follows: Glucose 172, BUN 19, creatinine 0.82, total protein 7.0, albumin 3.8, calcium 9.0, AST 32, alkaline phosphatase 70, ALT 47, total bilirubin 0.40, sodium 136, potassium 4.5, chloride 103, serum prealbumin 31.2, hemoglobin A1c 8.9, white blood count 6.0, hemoglobin 13.2, hematocrit 41.3, platelets 181,000. The patient indicates that she has had very little seepage, that appears yellow in color, when present. She indicates that the redness and erythema appears to have largely abated. According to the patient, her blood sugars continue to run around 150 each day, and she indicates that she is consuming a well-balanced and nutritious diet. Plan: Patient has been counseled as to the appropriate foot care necessary in diabetic patients. Appropriate footwear has been implemented, frequent inspection of the patient's feet, appropriate toenail trimming by professional, etc., have been recommended. The right foot ulceration remains completely healed. The patient is to continue with offloading measures in this regard. She has also obtained new footwear, which appears to be appropriate and no longer applying pressure to pressure points of her feet. Patient has been advised to optimize her glycemic control. Adequate nutrition has been advised. We are to continue the use of Collagenase Santyl topically to the ulcerations on the right lateral calf. This has proved to be of benefit to the patient's ulcerations in the past. Furthermore, the patient has completed her prescription for Levaquin. The patient is to continue wearing her graduated compression stockings of 20 to 30 mmHg compression on a daily basis. The patient is to continue elevating her legs as much as possible. She is to avoid prolonged idle sitting. The patient has been encouraged to assure adequate nutrition. Optimizing glycemic control has also been advised. Weight loss has also been recommended. We are to seek approval for the use of PuraPly, given the rather chronic nature of colonization of her right calf wounds, and consideration that the antibacterial component of the PuraPly may be of benefit in eradicating the cellulitic predisposition. She is to continue the use of collagenase Santyl topically on a daily basis. She will follow-up in our clinic in 1 week. At that time, consideration may be given to either PuraPly, or the resumption of a skin graft substitute. Alternatively, if concerns regarding infection persist, a repeat wound culture may be considered. Influenza vaccine was not administered today. The patient is not a smoker. Patient weighs 265 pounds. She stands 5 feet 4 inches tall. Her BMI is 45.5, which places her in a class III category. Weight loss has been recommended, and collaboration with the patient's primary care physician has been recommended.
== END 2019-08-22 23:59 ==
LOC: WC 08:00
PROVIDERS: Family Provider Nurse Practitioner Primary Care; PCP Nurse Practitioner Primary Care; Referring Provider Surgery; Visit Provider Surgery
DX: E11.622 Type 2 diabetes mellitus with other skin ulcer (principal); L97.212 Non-pressure chronic ulcer of right calf with fat layer exposed; J44.9 Chronic obstructive pulmonary disease, unspecified; E66.01 Morbid (severe) obesity due to excess calories; Z68.42 Body mass index [BMI] 45.0-49.9, adult; R60.0 Localized edema; M79.89 Other specified soft tissue disorders; S81.801D Unspecified open wound, right lower leg, subsequent encounter; W22.8XXD Striking against or struck by other objects, subsequent encounter; I25.10 Atherosclerotic heart disease of native coronary artery without angina pectoris; M51.16 Intervertebral disc disorders with radiculopathy, lumbar region; Z79.899 Other long term (current) drug therapy; Z79.82 Long term (current) use of aspirin; Z79.4 Long term (current) use of insulin; Z87.891 Personal history of nicotine dependence
CPT/HCPCS: 11042; 87070; 87075; 87077; 87186; 87205; 87640

== ENCOUNTER 2019-09-10 08:00 | Outpatient (RCR) | payer OTHER, SELFPAY ==
[2019-08-13 08:08] VITALS: BMI 44.9
[2019-08-23 00:12] VITALS: BP 146/82; PULSE 126; RESP 18; TEMP 36.1
[2019-08-27 08:04] VITALS: BP 154/80; PULSE 102; RESP 20; TEMP 36; BMI 44.9
--- NOTE | 2019-08-27 10:30 | HP.PCM_ITS ---
(1) Traumatic open wound of lower leg Status: Chronic Current Visit: Yes Qualifiers: Encounter type: subsequent encounter Code(s): S81.809A - Unspecified open wound, unspecified lower leg, initial encounter (2) Leg swelling Status: Chronic Current Visit: Yes Code(s): M79.89 - Other specified soft tissue disorders (3) Edema of leg Status: Chronic Current Visit: Yes Code(s): R60.0 - Localized edema (4) Diabetes mellitus Status: Chronic Current Visit: Yes Qualifiers: Diabetes mellitus type: type 2 Code(s): E11.9 - Type 2 diabetes mellitus without complications (5) Morbid obesity with BMI of 45.0-49.9, adult Status: Chronic Current Visit: Yes Code(s): E66.01 - Morbid (severe) obesity due to excess calories; Z68.42 - Body mass index (BMI) 45.0-49.9, adult (6) COPD (chronic obstructive pulmonary disease) Status: Chronic Current Visit: No Code(s): J44.9 - Chronic obstructive pulmonary disease, unspecified (7) Coronary artery arteriosclerosis Status: Chronic Current Visit: No Code(s): I25.10 - Atherosclerotic heart disease of [place] coronary artery without angina pectoris (8) Diabetic foot wound, Hubbard Grade 1 Status: Resolved Current Visit: No (9) Ulcer of foot due to diabetes Status: Ruled-out Current Visit: No Code(s): E11.621 - Type 2 diabetes mellitus with foot ulcer; L97.509 - Non-pressure chronic ulcer of other part of unspecified foot with unspecified severity (10) Lumbar disc disease with radiculopathy Status: Chronic Current Visit: No Code(s): M51.16 - Intervertebral disc disorders with radiculopathy, lumbar region (11) Chronic wound of extremity Status: Chronic Current Visit: Yes (12) Ulcer of calf due to diabetes mellitus Status: Chronic Current Visit: Yes Code(s): E11.622 - Type 2 diabetes mellitus with other skin ulcer; L97.209 - Non-pressure chronic ulcer of unspecified calf with unspecified severity History of Present Illness Date of Service: 08/27/19 Chief Complaint: Chronic open wound of the right lower extremity secondary to diabetes mellitus, Diabetic right foot wound - Hubbard Grade 1 History of Wound: This is a 58-year-old diabetic female who has been previously treated in our facility for a traumatic wound on the left lower extremity. She presented this time with wounds in her right lower extremity. There are 2 wounds involving the right calf, which were initially traumatic in origin. They are located on the right anterior tibial surface and on the right lateral calf. These occurred due to impact with a car door in December 2018. It is felt, however, that the failure of the patient's wounds to heal is due to her longstanding diabetes mellitus. The patient has been using Collagenase Santyl topically. She also developed a more recent ulceration on the right foot, locat ed overlying a bunion, which has now subsequently healed. According the patient, this occurred as a result of a new pair of sneakers, which she obtained at a retail establishment. The patient is known to be diabetic, and her blood sugars appear to be reasonably well controlled, based upon the patient's account. The previous wound in the left lower extremity has remained healed. The patient has continued to implement conservative treatment measures previously recommended, including leg elevation, avoidance of idle standing and sitting, active lifestyle, attempts at weight loss, and the use of graduated compression stockings on a daily basis, of 20 to 30 mmHg compression. Past Medical History Past Medical History: Chronic Problems Traumatic open wound of lower leg (Chronic) Leg swelling (Chronic) Edema of leg (Chronic) Diabetes mellitus (Chronic) Morbid obesity with BMI of 45.0-49.9, adult (Chronic) COPD (chronic obstructive pulmonary disease) (Chronic) Coronary artery arteriosclerosis (Chronic) Lumbar disc disease with radiculopathy (Chronic) Chronic wound of extremity (Chronic) Ulcer of calf due to diabetes mellitus (Chronic) Surgical History: - - The patient has a history of coronary artery stent placement. She has undergone open reduction and internal fixation of a left tibia fracture. She underwent right meniscus repair in the past. She is a Ab0. Allergies/Adverse Reactions: Allergies bee venom protein (honey bee) Adverse Reaction (Verified 03/19/19 09:02) Swelling Home Medications: Ambulatory Orders Medication Instructions Recorded Aspirin E.C. [Ecotrin] 81 mg PO DAILY@0800 09/03/13 Hydrocodone/Acetaminophen [Vicodin 1 - 2 tablet PO Q6H PRN PRN 09/03/13 5-300 mg Tablet] Lisinopril 10 mg PO DAILY 09/03/13 Metformin [Metformin HCl] 1,000 mg PO BID 09/03/13 Metoprolol Tartrate 50 mg PO DAILY 09/03/13 Dulaglutide [Trulicity] 0.75 mg SQ 01/02/18 Fluticasone/Vilanterol [Breo 1 each IH 01/02/18 Ellipta 200-25 Mcg INH] Insulin Glargine,Hum.rec.anlog 56 unit BID 01/02/18 [Lantus] Sitagliptin Phosphate [Januvia] 25 mg PO DAILY 01/02/18 Tiotropium [place] [Spiriva] 18 mcg IH 01/02/18 - Family History Paternal - - The patient's father at the age of 78 with history of chronic obstructive pulmonary disease. The patient's mother at the age of 84 with history of chronic obstructive pulmonary disease. Smoking Status: Former smoker Tobacco Use: Non-smoker Review of Systems Constitutional: Denies: Chills, Fever, Weight Change Eyes: Denies: Pain, Vision Change HEENT: Denies: Difficulty Hearing, Difficulty Swallowing, Sinus Congestion Cardiovascular: Denies: Chest Pain, Palpitations Respiratory: Denies: Cough, Shortness of Breath Gastrointestinal: Denies: Diarrhea, Nausea, Vomiting Genitourinary: Denies: Dysuria, Hematuria Endocrine: Denies: Heat/ Cold Intolerance, Polydipsia, Polyuria Hematologic/ Lymphatic: Denies: Easy Bruising, Easy Bleeding - Physical Exam Vital Signs Temp Pulse Resp BP 96.8 F L 102 H 20 H 154/80 H 08/27/19 08:04 08/27/19 08:04 08/27/19 08:04 08/27/19 08:04 General: Alert, Oriented x3, Cooperative, No apparent distress, Well developed, Well nourished, - - The patient is morbidly obese. HEENT: Atraumatic, PERRLA, EOMI, Normocephalic Oral: Moist Mucosa Neck: No JVD Lungs: Normal air movement Abdomen: Non-Distended, Obese Extremities: No clubbing, No cyanosis, No edema, No Calf Tenderness, - - There is no significant swelling or edema in the patient's right lower extremity. The ulcerations on the right anterolateral calf persist. The larger of the 2 ulcerations as the inferior ulceration. Dimensions are documented elsewhere for each ulceration. The inferior ulceration is superficial. There has been improvement in this regard. There is some surrounding erythema. As result, swab cultures have been obtained for both aerobic and anaerobic bacterial growth. Results will be awaited. The more superior of the 2 ulcerations is smaller in size, but slightly deeper in depth. There appears to be less erythema surrounding this ulceration. There is a very small amount of bioburden involving the inferior ulceration. The more superior ulceration demonstrates a moderate amount of bioburden. Wound Measurements and Assessment WC - Nurse 1 - General Ulcer Measurement Start: 08/27/19 08:04 Freq: Status: Active Protocol: Activity Type Activity Date Activity User E-Sign Co-Sign Detail Recorded Client Recorded Date Recorded By Document 08/27/19 08:04 DL [id number] 08/27/19 08:13 DL 08/27/19 08:04 Wound Center Nurse 1 [Ulcer Assessment] #3 LATERAL RLE -Current Size (cm) - Length 1.7 -Current Size (cm) - Width 1.7 -Current Size (cm) - Depth 0.4 -Total Square Cm 2.89 -Photo Taken No -Exudate Amt Small -Exudate Type Serosanguineous -Wound Margin Distinct, Outline Attached -Granulation Amt Medium (34-66%) -Granulation Quality Red -Necrosis Amt Medium (34-66%) -Necrotic Tissue Type Adherent Slough -Structure Exposed N/A -Texture (Ketty-wound Skin Appearance) Scarring -Moisture (Ketty-wound Skin Appearance Dry/Scaly ) -Color (Ketty-wound Skin Appearance) No Abnormality -Temperature (Ketty-wound Skin No Abnormality Appearance) (Pt Warm) -Tenderness on Palpation (Ketty-wound No Skin Appearance) -Ulcer Cleansing Rinsed/ Irrigated with Saline -Foul Odor after Cleansing No -Anesthetic Used 4% Lidocaine Solution #2 R Vaz -Current Size (cm) - Length 2.8 -Current Size (cm) - Width 2.2 -Current Size (cm) - Depth 0.1 -Total Square Cm 6.16 -Photo Taken No -Exudate Amt Small -Exudate Type Serosanguineous -Wound Margin Distinct, Outline Attached -Granulation Amt Medium (34-66%) -Granulation Quality Red -Necrosis Amt Medium (34-66%) -Necrotic Tissue Type Adherent Slough -Structure Exposed N/A -Texture (Ketty-wound Skin Appearance) No Abnormality -Moisture (Ketty-wound Skin Appearance Dry/Scaly ) -Color (Ketty-wound Skin Appearance) Erythema,Rubor -Temperature (Ketty-wound Skin No Abnormality Appearance) (Pt Warm) -Tenderness on Palpation (Ketty-wound No Skin Appearance) -Ulcer Cleansing Rinsed/ Irrigated with Saline -Foul Odor after Cleansing No -Anesthetic Used 4% Lidocaine Solution [Edema Assessment] -Right Calf (cm) 41 -Right Ankle (cm) 23.5 WC - Nurse 2 - General Ulcer CM Notes Start: 08/27/19 08:04 Freq: Status: Active Protocol: Activity Type Activity Date Activity User E-Sign Co-Sign Detail Recorded Client Recorded Date Recorded By Document 08/27/19 08:53 DV [id number] 08/27/19 08:58 DV 08/27/19 08:53 Wound Center Nurse 2 [Procedure/Treatment] #3 LATERAL RLE -Time 08:54 -Correct Patient Yes -Correct Side, Site, Position Yes -Correct Procedure Yes -Procedure Performed Yes -Type of Procedure Debridement -Clinical Debridement Subcutaneous -Post Debridement Size (cm) - Length 0.9 -Post Debridement Size (cm) - Width 1.6 -Post Debridement Size (cm) - Depth 0.4 -Total Square Cm 1.44 -Wound/Ulcer Outcome Not Healed -Ulcer Cleansing Rinsed/ Irrigated with Saline -Foul Odor after Cleansing No -Bioengineered Tissue No -Bleeding Controlled with Pressure -Offloading No -Type of Offloading Surgical Shoe -Treatment Response Procedure Tolerated Well #2 R Vaz -Time 08:55 -Correct Patient Yes -Correct Side, Site, Position Yes -Correct Procedure Yes -Procedure Performed Yes -Type of Procedure Debridement -Clinical Debridement Subcutaneous -Post Debridement Size (cm) - Length 3.0 -Post Debridement Size (cm) - Width 3.5 -Post Debridement Size (cm) - Depth 0.2 -Total Square Cm 10.50 -Wound/Ulcer Outcome Not Healed -Ulcer Cleansing Rinsed/ Irrigated with Saline -Foul Odor after Cleansing No -Bioengineered Tissue No -Bleeding Controlled with Pressure -Offloading No -Type of Offloading Surgical Shoe -Treatment Response Procedure Tolerated Well [See Physician Procedure note for Specifics] Pain Scale: 0-10 Numeric [Pain] -Is Patient Pain Free? Yes Musculoskeletal: No Muscle Wasting Neurological: Cranial nerves II-XII grossly intact, Neuro grossly intact Psych/Mental Status: Normal Affect, Appropriate, Alert and oriented to time, place, person, mood and affect Debridement Note Post-Debridement Measurements/Treatment WC - Nurse 2 - General Ulcer CM Notes Start: 08/27/19 08:04 Freq: Status: Active Protocol: Activity Type Activity Date Activity User E-Sign Co-Sign Detail Recorded Client Recorded Date Recorded By Document 08/27/19 08:53 DV [id number] 08/27/19 08:58 DV 08/27/19 08:53 Wound Center Nurse 2 #3 LATERAL RLE -Time 08:54 -Correct Patient Yes -Correct Side, Site, Position Yes -Correct Procedure Yes -Procedure Performed Yes -Type of Procedure Debridement -Clinical Debridement Subcutaneous -Post Debridement Size (cm) - Length 0.9 -Post Debridement Size (cm) - Width 1.6 -Post Debridement Size (cm) - Depth 0.4 -Total Square Cm 1.44 -Wound/Ulcer Outcome Not Healed -Ulcer Cleansing Rinsed/ Irrigated with Saline -Foul Odor after Cleansing No -Bioengineered Tissue No -Bleeding Controlled with Pressure -Offloading No -Type of Offloading Surgical Shoe -Treatment Response Procedure Tolerated Well #2 R Vaz -Time 08:55 -Correct Patient Yes -Correct Side, Site, Position Yes -Correct Procedure Yes -Procedure Performed Yes -Type of Procedure Debridement -Clinical Debridement Subcutaneous -Post Debridement Size (cm) - Length 3.0 -Post Debridement Size (cm) - Width 3.5 -Post Debridement Size (cm) - Depth 0.2 -Total Square Cm 10.50 -Wound/Ulcer Outcome Not Healed -Ulcer Cleansing Rinsed/ Irrigated with Saline -Foul Odor after Cleansing No -Bioengineered Tissue No -Bleeding Controlled with Pressure -Offloading No -Type of Offloading Surgical Shoe -Treatment Response Procedure Tolerated Well Pain Scale: 0-10 Numeric Is Patient Pain Free? Yes Laterality: Right - Anterolateral calf Type of Debridement: Excisional debridement Anesthesia Used: 5% Lidocaine Gel Depth: Down to and including healthy tissue, in the subcutaneous layer Percentage of wound debrided: 100 Instrument Used: 5mm curette Tissue Removed: Bioburden and nonviable tissue Severity: Fat Layer Exposed Amount of bleeding with debridement: Mild Bleeding Controlled with: Compression and gauze Patient tolerated procedure well Assessment/Plan Active Problems Traumatic open wound of lower leg (Chronic) Leg swelling (Chronic) Edema of leg (Chronic) Diabetes mellitus (Chronic) Morbid obesity with BMI of 45.0-49.9, adult (Chronic) Chronic wound of extremity (Chronic) Ulcer of calf due to diabetes mellitus (Chronic) Assessment: This is a 58-year-old female who presented with traumatic wounds on the right lower extremity, of several months duration. The ulceration overlying the right bunion remains completely healed. A noninvasive lower extremity arterial study performed about 1 year ago was normal, revealing triphasic waveforms at ankle level bilaterally, normal resting ankle?brachial indices bilaterally, and normal digital-brachial indices bilaterally. The ulcerations on the anterolateral aspect of the right calf have shown slight improvement in recent weeks. Cultures were obtained several weeks ago, which were positive for Pseudomonas aeruginosa. Based upon culture and sensitivity results, the patient was placed on Levaquin 750 mg daily, the course of which is now complete. There appears to be significant improvement, but mild erythema persists about the inferior of the patient's to right calf ulcerations. Therefore, swab cultures have been obtained today for both aerobic and anaerobic bacterial growth. Results will be awaited. A battery of diagnostic tests have been recently obtained, with results as follows: Glucose 172, BUN 19, creatinine 0.82, total protein 7.0, albumin 3.8, calcium 9.0, AST 32, alkaline phosphatase 70, ALT 47, total bilirubin 0.40, sodium 136, potassium 4.5, chloride 103, serum prealbumin 31.2, hemoglobin A1c 8.9, white blood count 6.0, hemoglobin 13.2, hematocrit 41.3, platelets 181,000. According to the patient, her blood sugars continue to run around 150 each day, and she indicates that she is consuming a well-balanced and nutritious diet. Plan: Patient has been counseled as to the appropriate foot care necessary in diabetic patients. Appropriate footwear has been implemented, frequent inspection of the patient's feet, appropriate toenail trimming by professional, etc., have been recommended. The right foot ulceration remains completely healed. The patient is to continue with offloading measures in this regard. She has also obtained new footwear, which appears to be appropriate and no longer applying pressure to pressure points of her feet. Patient has been advised to optimize her glycemic control. Adequate nutrition has been advised. We are to continue the use of Collagenase Santyl topically to the ulcerations on the right lateral calf. This has proved to be of benefit to the patient's ulcerations in the past. Furthermore, the patient has completed her prescri ption for Levaquin. The patient is to continue wearing her graduated compression stockings of 20 to 30 mmHg compression on a daily basis. The patient is to continue elevating her legs as much as possible. She is to avoid prolonged idle sitting. The patient has been encouraged to assure adequate nutrition. Optimizing glycemic control has also been advised. Weight loss has also been recommended. We are to seek approval for the use of PuraPly, given the rather chronic nature of colonization of her right calf wounds, and consideration that the antibacterial component of the PuraPly may be of benefit in eradicating the cellulitic predisposition. She is to continue the use of collagenase Santyl topically on a daily basis. She will follow-up in our clinic in 2 weeks. At that time, consideration may be given to either PuraPly, or the resumption of a skin graft substitute. Alternatively, if concerns regarding infection persist, appropriate management will be implemented. Influenza va ccine was not administered today. The patient is not a smoker. Patient weighs 265 pounds. She stands 5 feet 4 inches tall. Her BMI is 45.5, which places her in a class III category. Weight loss has been recommended, and collaboration with the patient's primary care physician has been recommended.
[2019-09-10 08:06] VITALS: BP 153/79; PULSE 116; RESP 18; TEMP 36; BMI 44.9
--- NOTE | 2019-09-10 11:32 | HP.PCM_ITS ---
(1) Traumatic open wound of lower leg Status: Chronic Current Visit: Yes Qualifiers: Encounter type: subsequent encounter Code(s): S81.809A - Unspecified open wound, unspecified lower leg, initial encounter (2) Leg swelling Status: Chronic Current Visit: Yes Code(s): M79.89 - Other specified soft tissue disorders (3) Edema of leg Status: Chronic Current Visit: Yes Code(s): R60.0 - Localized edema (4) Diabetes mellitus Status: Chronic Current Visit: Yes Qualifiers: Diabetes mellitus type: type 2 Code(s): E11.9 - Type 2 diabetes mellitus without complications (5) Morbid obesity with BMI of 45.0-49.9, adult Status: Chronic Current Visit: Yes Code(s): E66.01 - Morbid (severe) obesity due to excess calories; Z68.42 - Body mass index (BMI) 45.0-49.9, adult (6) COPD (chronic obstructive pulmonary disease) Status: Chronic Current Visit: No Code(s): J44.9 - Chronic obstructive pulmonary disease, unspecified (7) Coronary artery arteriosclerosis Status: Chronic Current Visit: No Code(s): I25.10 - Atherosclerotic heart disease of [place] coronary artery without angina pectoris (8) Lumbar disc disease with radiculopathy Status: Chronic Current Visit: No Code(s): M51.16 - Intervertebral disc disorders with radiculopathy, lumbar region (9) Chronic wound of extremity Status: Chronic Current Visit: Yes (10) Ulcer of calf due to diabetes mellitus Status: Chronic Current Visit: Yes Code(s): E11.622 - Type 2 diabetes mellitus with other skin ulcer; L97.209 - Non-pressure chronic ulcer of unspecified calf with unspecified severity History of Present Illness Date of Service: 09/10/19 Chief Complaint: Chronic open wound of the right lower extremity secondary to diabetes mellitus, Diabetic right foot wound - [place] Grade 1 History of Wound: This is a 58-year-old diabetic female who has been previously treated in our facility for a traumatic wound on the left lower extremity. She presented this time with wounds in her right lower extremity. There are 2 wounds involving the right calf, which were initially traumatic in origin. They are located on the right anterior tibial surface and on the right lateral calf. These occurred due to impact with a car door in December 2018. It is felt, however, that the failure of the patient's wounds to heal is due to her longstanding diabetes mellitus. The patient has been using Collagenase Santyl topically. She also developed a more recent ulceration on the right foot, located overlying a bunion, which has now subsequently healed. According the patient, this occurred as a result of a new pair of sneakers, which she obtained at a retail establishment. The patient is known to be diabetic, and her blood sugars appear to be reasonably well controlled, based upon the patient's account. The previous wound in the left lower extremity has remained healed. The patient has continued to implement conservative treatment measures previously recommended, including leg elevation, avoidance of idle standing and sitting, active lifestyle, attempts at weight loss, and the use of graduated compression stockings on a daily basis, of 20 to 30 mmHg compression. Past Medical History Past Medical History: Chronic Problems Traumatic open wound of lower leg (Chronic) Leg swelling (Chronic) Edema of leg (Chronic) Diabetes mellitus (Chronic) Morbid obesity with BMI of 45.0-49.9, adult (Chronic) COPD (chronic obstructive pulmonary disease) (Chronic) Coronary artery arteriosclerosis (Chronic) Lumbar disc disease with radiculopathy (Chronic) Chronic wound of extremity (Chronic) Ulcer of calf due to diabetes mellitus (Chronic) Surgical History: - - The patient has a history of coronary artery stent placement. She has undergone open reduction and internal fixation of a left tibia fracture. She underwent right meniscus repair in the past. She is a Ab0. Allergies/Adverse Reactions: Allergies bee venom protein (honey bee) Adverse Reaction (Verified 03/19/19 09:02) Swelling Home Medications: Ambulatory Orders Medication Instructions Recorded Aspirin E.C. [Ecotrin] 81 mg PO DAILY@0800 09/03/13 Hydrocodone/Acetaminophen [Vicodin 1 - 2 tablet PO Q6H PRN PRN 09/03/13 5-300 mg Tablet] Lisinopril 10 mg PO DAILY 09/03/13 Metformin [Metformin HCl] 1,000 mg PO BID 09/03/13 Metoprolol Tartrate 50 mg PO DAILY 09/03/13 Dulaglutide [Trulicity] 0.75 mg SQ 01/02/18 Fluticasone/Vilanterol [Breo 1 each IH 01/02/18 Ellipta 200-25 Mcg INH] Insulin Glargine,Hum.rec.anlog 56 unit BID 01/02/18 [Lantus] Sitagliptin Phosphate [Januvia] 25 mg PO DAILY 01/02/18 Tiotropium [place] [Spiriva] 18 mcg IH 01/02/18 - Family History Paternal - - The patient's father at the age of 78 with history of chronic obstructive pulmonary disease. The patient's mother at the age of 84 with history of chronic obstructive pulmonary disease. Smoking Status: Former smoker Tobacco Use: Non-smoker Review of Systems Constitutional: Denies: Chills, Fever, Weight Change Eyes: Denies: Pain, Vision Change HEENT: Denies: Difficulty Hearing, Difficulty Swallowing, Sinus Congestion Cardiovascular: Denies: Chest Pain, Palpitations Respiratory: Denies: Cough, Shortness of Breath Gastrointestinal: Denies: Diarrhea, Nausea, Vomiting Genitourinary: Denies: Dysuria, Hematuria Endocrine: Denies: Heat/ Cold Intolerance, Polydipsia, Polyuria Hematologic/ Lymphatic: Denies: Easy Bruising, Easy Bleeding - Physical Exam Vital Signs Temp Pulse Resp BP 96.8 F L 116 H 18 153/79 H 09/10/19 08:06 09/10/19 08:06 09/10/19 08:06 09/10/19 08:06 General: Alert, Oriented x3, Cooperative, No apparent distress, Well developed, Well nourished, - - The patient is obese. HEENT: Atraumatic, PERRLA, EOMI, Normocephalic Oral: Moist Mucosa Neck: No JVD Lungs: Normal air movement Abdomen: Non-Distended, Obese Extremities: No clubbing, No cyanosis, No edema, No Calf Tenderness, - - There is a hint of redness and erythema surrounding the ulcerations on the anterolateral aspect of the patient's distal right calf. It does not appear to be frankly cellulitic. The ulcerations are generally pink and healthy in appearance, with a moderate amount of bioburden. Dimensions are documented elsewhere. There is no significant swelling noted in the patient's right lower extremity. Wound Measurements and Assessment WC - Nurse 1 - General Ulcer Measurement Start: 08/27/19 08:04 Freq: Status: Active Protocol: Activity Type Activity Date Activity User E-Sign Co-Sign Detail Recorded Client Recorded Date Recorded By Document 09/10/19 08:06 PL [id number] 09/10/19 08:13 PL Document 09/10/19 08:14 PL [id number] 09/10/19 08:15 PL 09/10/19 09/10/19 08:06 08:14 Wound Center Nurse 1 [Ulcer Assessment] #3 LATERAL RLE -Combined with other wound No -Current Size (cm) - Length 1.5 -Current Size (cm) - Width 1.5 -Current Size (cm) - Depth 0.2 -Total Square Cm 2.25 -Photo Taken No -Epithelialization None Present -Tunneling No -Undermining/Tunneling No -Exudate Amt Medium -Exudate Type Serosanguineous -Granulation Amt Medium (34-66%) -Granulation Quality [place] -Slough/Fibrin Yes -Necrosis Amt Medium (34-66%) -Necrotic Tissue Type Adherent Slough -Ulcer Cleansing Rinsed/ Irrigated with Saline -Anesthetic Used 4% Lidocaine Solution #2 R Vaz -Combined with other wound No -Current Size (cm) - Length 2.7 -Current Size (cm) - Width 2.5 -Current Size (cm) - Depth 0.2 -Total Square Cm 6.75 -Photo Taken No -Epithelialization None Present -Tunneling No -Undermining/Tunneling No -Exudate Amt Medium -Exudate Type Serosanguineous -Granulation Amt Medium (34-66%) -Granulation Quality [place] -Slough/Fibrin Yes -Necrosis Amt Medium (34-66%) -Necrotic Tissue Type Adherent Slough -Temperature (Ketty-wound Skin No Abnormality Appearance) (Pt Warm) -Tenderness on Palpation (Ketty-wound No Skin Appearance) -Ulcer Cleansing Rinsed/ Irrigated with Saline -Foul Odor after Cleansing No -Anesthetic Used 4% Lidocaine Solution [Edema Assessment] -Right Calf (cm) 33 -Point of measurement (cm from the 23 medial instep) -Right Ankle (cm) 25.5 -Point of Measurement (cm from the 11 medial instep) WC - Nurse 2 - General Ulcer CM Notes Start: 08/27/19 08:04 Freq: Status: Active Protocol: Activity Type Activity Date Activity User E-Sign Co-Sign Detail Recorded Client Recorded Date Recorded By Document 09/10/19 08:37 DV [id number] 09/10/19 08:42 DV 09/10/19 08:37 Wound Center Nurse 2 [Procedure/Treatment] #3 LATERAL RLE -Time 08:38 -Correct Patient Yes -Correct Side, Site, Position Yes -Correct Procedure Yes -Procedure Performed Yes -Type of Procedure Debridement -Clinical Debridement Subcutaneous -Post Debridement Size (cm) - Length 1.8 -Post Debridement Size (cm) - Width 1.9 -Post Debridement Size (cm) - Depth 0.3 -Total Square Cm 3.42 -Wound/Ulcer Outcome Not Healed -Ulcer Cleansing Rinsed/ Irrigated with Saline -Foul Odor after Cleansing No -Bioengineered Tissue Yes -Type of bioengineered Tissue [id number] -Expiration Date 06/21/21 -Product Lot Number [id number] -Percent Used 20 -Saline Lot Number HYD -Topical Lidocaine (%) 4 -Bleeding Controlled with Pressure -Offloading No -Treatment Response Procedure Tolerated Well #2 R Vaz -Time 08:38 -Correct Patient Yes -Correct Side, Site, Position Yes -Correct Procedure Yes -Procedure Performed Yes -Type of Procedure Debridement -Clinical Debridement Subcutaneous -Post Debridement Size (cm) - Length 3.0 -Post Debridement Size (cm) - Width 2.7 -Post Debridement Size (cm) - Depth 0.2 -Total Square Cm 8.10 -Wound/Ulcer Outcome Not Healed -Ulcer Cleansing Rinsed/ Irrigated with Saline -Foul Odor after Cleansing No -Bioengineered Tissue No -Type of bioengineered Tissue [id number] -Expiration Date 06/21/21 -Product Lot Number [id number] -Percent Used 60 -Saline Lot Number HYD -Topical Lidocaine (%) 4 -Bleeding Controlled with Pressure -Offloading No -Treatment Response Procedure Tolerated Well [See Physician Procedure note for Specifics] Pain Scale: 0-10 Numeric [Pain] -Is Patient Pain Free? Yes Musculoskeletal: No Muscle Wasting Neurological: Cranial nerves II-XII grossly intact, Neuro grossly intact Psych/Mental Status: Normal Affect, Appropriate, Alert and oriented to time, place, person, mood and affect Debridement Note Post-Debridement Measurements/Treatment WC - Nurse 2 - General Ulcer CM Notes Start: 08/27/19 08:04 Freq: Status: Active Protocol: Activity Type Activity Date Activity User E-Sign Co-Sign Detail Recorded Client Recorded Date Recorded By Document 08/27/19 08:53 DV [id number] 08/27/19 08:58 DV Document 09/10/19 08:37 DV [id number] 09/10/19 08:42 DV 08/27/19 09/10/19 08:53 08:37 Wound Center Nurse 2 #3 LATERAL RLE -Time 08:54 08:38 -Correct Patient Yes Yes -Correct Side, Site, Position Yes Yes -Correct Procedure Yes Yes -Procedure Performed Yes Yes -Type of Procedure Debridement Debridement -Clinical Debridement Subcutaneous Subcutaneous -Post Debridement Size (cm) - Length 0.9 1.8 -Post Debridement Size (cm) - Width 1.6 1.9 -Post Debridement Size (cm) - Depth 0.4 0.3 -Total Square Cm 1.44 3.42 -Wound/Ulcer Outcome Not Healed Not Healed -Ulcer Cleansing Rinsed/ Rinsed/ Irrigated with Irrigated with Saline Saline -Foul Odor after Cleansing No No -Bioengineered Tissue No Yes -Type of bioengineered Tissue [id number] -Expiration Date 06/21/21 -Product Lot Number [id number] -Percent Used 20 -Saline Lot Number HYD -Topical Lidocaine (%) 4 -Bleeding Controlled with Pressure Pressure -Offloading No No -Type of Offloading Surgical Shoe -Treatment Response Procedure Procedure Tolerated Well Tolerated Well #2 R Vaz -Time 08:55 08:38 -Correct Patient Yes Yes -Correct Side, Site, Position Yes Yes -Correct Procedure Yes Yes -Procedure Performed Yes Yes -Type of Procedure Debridement Debridement -Clinical Debridement Subcutaneous Subcutaneous -Post Debridement Size (cm) - Length 3.0 3.0 -Post Debridement Size (cm) - Width 3.5 2.7 -Post Debridement Size (cm) - Depth 0.2 0.2 -Total Square Cm 10.50 8.10 -Wound/Ulcer Outcome Not Healed Not Healed -Ulcer Cleansing Rinsed/ Rinsed/ Irrigated with Irrigated with Saline Saline -Foul Odor after Cleansing No No -Bioengineered Tissue No No -Type of bioengineered Tissue [id number] -Expiration Date 06/21/21 -Product Lot Number [id number] -Percent Used 60 -Saline Lot Number HYD -Topical Lidocaine (%) 4 -Bleeding Controlled with Pressure Pressure -Offloading No No -Type of Offloading Surgical Shoe -Treatment Response Procedure Procedure Tolerated Well Tolerated Well Pain Scale: 0-10 Numeric Is Patient Pain Free? Yes Yes Laterality: Right - Anterolateral distal calf x2 Type of Debridement: Excisional debridement Anesthesia Used: 5% Lidocaine Gel Depth: Down to and including healthy tissue, in the subcutaneous layer Percentage of wound debrided: 100 Instrument Used: 5mm curette Tissue Removed: Bioburden Severity: Fat Layer Exposed Amount of bleeding with debridement: Mild Bleeding Controlled with: Compression and gauze Patient tolerated procedure well Following a routine excisional debridement, a 5 cm x 5 cm PuraPly was chosen for placement on the 2 right calf ulcerations. In each case, the pure apply was cut and fashioned to the appropriate size and shape. It was then applied topically on each of the 2 ulcerations, the inferior ulceration being the larger and more superficial of the 2. Approximately 80% of the PuraPly was used, and approximately 60% on the inferior ulceration, and 40% on the superior ulceration. Once placed topically, Adaptic Touch was placed, and anchored using Steri-Strips. Collagen hydrogel was applied topically. A gauze dressing was then applied, and compression was then placed. The dressing is to be left intact until the patient's follow-up visit. Assessment/Plan Active Problems Traumatic open wound of lower leg (Chronic) Leg swelling (Chronic) Edema of leg (Chronic) Diabetes mellitus (Chronic) Morbid obesity with BMI of 45.0-49.9, adult (Chronic) Chronic wound of extremity (Chronic) Ulcer of calf due to diabetes mellitus (Chronic) Assessment: This is a 58-year-old female who presented with traumatic wounds on the right lower extremity, of several months duration. The ulceration overlying the right bunion remains completely healed. A noninvasive lower extremity arterial study performed about 1 year ago was normal, revealing triphasic waveforms at ankle level bilaterally, normal resting ankle?brachial indices bilaterally, and normal digital-brachial indices bilaterally. The ulcerations on the anterolateral aspect of the right calf have shown slight improvement in recent weeks. Cultures were obtained several weeks ago, which were positive for Pseudomonas aeruginosa. Based upon culture and sensitivity results, the patient was placed on Levaquin 750 mg daily, the course of which has been completed. There appears to be significant improvement, but mild erythema persisted about the inferior of the patient's to right calf ulcerations. Therefore, swab cultures were again obtained, which were positive for rare species of Staphylococcus, Streptococcus, and Corynebacterium. Due to the rare occurrence of these bacterial species, there felt to be skin contaminants, and not warranting a course of antibiotic treatment. A battery of diagnostic tests have been recently obtained, with results as follows: Glucose 172, BUN 19, creatinine 0.82, total protein 7.0, albumin 3.8, calcium 9.0, AST 32, alkaline phosphatase 70, ALT 47, total bilirubin 0.40, sodium 136, potassium 4.5, chl oride 103, serum prealbumin 31.2, hemoglobin A1c 8.9, white blood count 6.0, hemoglobin 13.2, hematocrit 41.3, platelets 181,000. According to the patient, her blood sugars continue to run around 150 each day, and she indicates that she is consuming a well-balanced and nutritious diet. Plan: Patient has been counseled as to the appropriate foot care necessary in diabetic patients. Appropriate footwear has been implemented, frequent inspection of the patient's feet, appropriate toenail trimming by professional, etc., have been recommended. The right foot ulceration remains completely healed. The patient is to continue with offloading measures in this regard. She has also obtained new footwear, which appears to be appropriate and no longer applying pressure to pressure points of her feet. Patient has been advised to optimize her glycemic control. Adequate nutrition has been advised. The patient is to maintain the PuraPly undisturbed, will follow-up in 2 weeks for reevaluation. The patient is to continue wearing her graduated compression stockings of 20 to 30 mmHg compression on a daily basis. The patient is to continue elevating her legs as much as possible. She is to avoid prolonged idle sitting. The patient has been encouraged to assure adequate nutrition. Optimizing glycemic control has also been advised. Weight loss has also been recommended. She will follow-up in our clinic in 2 weeks. At that time, consideration may be given to either PuraPly, or the resumption of a skin graft substitute. Alternatively, if concerns regarding infection persist, appropriate management will be implemented. Influenza vaccine was not administered today. The patient is not a smoker. Patient weighs 265 pounds. She stands 5 feet 4 inches tall. Her BMI is 45.5, which places her in a class III category. Weight loss has been recommended, and collaboration with the patient's primary care physician has been recommended.
== END 2019-09-22 23:59 ==
LOC: WC 08:00
PROVIDERS: Family Provider Nurse Practitioner Primary Care; PCP Nurse Practitioner Primary Care; Referring Provider Surgery; Visit Provider Surgery
DX: E11.622 Type 2 diabetes mellitus with other skin ulcer (principal); L97.212 Non-pressure chronic ulcer of right calf with fat layer exposed; L97.812 Non-pressure chronic ulcer of other part of right lower leg with fat layer exposed; S81.801S Unspecified open wound, right lower leg, sequela; W22.8XXS Striking against or struck by other objects, sequela; M79.89 Other specified soft tissue disorders; I25.10 Atherosclerotic heart disease of native coronary artery without angina pectoris; J44.9 Chronic obstructive pulmonary disease, unspecified; M51.16 Intervertebral disc disorders with radiculopathy, lumbar region; E66.01 Morbid (severe) obesity due to excess calories; Z68.42 Body mass index [BMI] 45.0-49.9, adult; Z79.82 Long term (current) use of aspirin; Z79.4 Long term (current) use of insulin; Z79.51 Long term (current) use of inhaled steroids; Z79.899 Other long term (current) drug therapy; Z87.891 Personal history of nicotine dependence; Z95.5 Presence of coronary angioplasty implant and graft
CPT/HCPCS: 11042; 15271; 87070; 87075; 87077; 87186; 87205; Q4196

== ENCOUNTER 2019-10-22 08:00 | Outpatient (RCR) | payer OTHER, SELFPAY ==
[2019-09-23 00:23] VITALS: BP 153/79; PULSE 116; RESP 18; TEMP 36
[2019-09-24 08:09] VITALS: BP 145/73; PULSE 113; RESP 20; TEMP 36.8; BMI 44.9
--- NOTE | 2019-09-24 10:34 | PCM.WC.HP ---
(1) Traumatic open wound of lower leg Status: Chronic Current Visit: Yes Qualifiers: Encounter type: subsequent encounter Code(s): S81.809A - Unspecified open wound, unspecified lower leg, initial encounter (2) Leg swelling Status: Chronic Current Visit: Yes Code(s): M79.89 - Other specified soft tissue disorders (3) Edema of leg Status: Chronic Current Visit: Yes Code(s): R60.0 - Localized edema (4) Diabetes mellitus Status: Chronic Current Visit: Yes Qualifiers: Diabetes mellitus type: type 2 Code(s): E11.9 - Type 2 diabetes mellitus without complications (5) Morbid obesity with BMI of 45.0-49.9, adult Status: Chronic Current Visit: Yes Code(s): E66.01 - Morbid (severe) obesity due to excess calories; Z68.42 - Body mass index (BMI) 45.0-49.9, adult (6) COPD (chronic obstructive pulmonary disease) Status: Chronic Current Visit: No Code(s): J44.9 - Chronic obstructive pulmonary disease, unspecified (7) Coronary artery arteriosclerosis Status: Chronic Current Visit: No Code(s): I25.10 - Atherosclerotic heart disease of knik coronary artery without angina pectoris (8) Diabetic foot wound, Hubbard Grade 1 Status: Resolved Current Visit: No (9) Ulcer of foot due to diabetes Status: Ruled-out Current Visit: No Code(s): E11.621 - Type 2 diabetes mellitus with foot ulcer; L97.509 - Non-pressure chronic ulcer of other part of unspecified foot with unspecified severity (10) Lumbar disc disease with radiculopathy Status: Chronic Current Visit: No Code(s): M51.16 - Intervertebral disc disorders with radiculopathy, lumbar region (11) Chronic wound of extremity Status: Chronic Current Visit: Yes (12) Ulcer of calf due to diabetes mellitus Status: Chronic Current Visit: Yes Code(s): E11.622 - Type 2 diabetes mellitus with other skin ulcer; L97.209 - Non-pressure chronic ulcer of unspecified calf with unspecified severity History of Present Illness Date of Service: 09/24/19 Chief Complaint: Chronic open wound of the right lower extremity secondary to diabetes mellitus, Diabetic right foot wound - Hubbard Grade 1 History of Wound: This is a 58-year-old diabetic female who has been previously treated in our facility for a traumatic wound on the left lower extremity. She presented this time with wounds in her right lower extremity. There are 2 wounds involving the right calf, which were initially traumatic in origin. They are located on the right anterior tibial surface and on the right lateral calf. These occurred due to impact with a car door in December 2018. It is felt, however, that the failure of the patient's wounds to heal is due to her longstanding diabetes mellitus. The patient has been using Collagenase Santyl topically. She also developed a more recent ulceration on the right foot, located overlying a bunion, which has now subsequently healed. According the patient, this occurred as a result of a new pair of sneakers, which she obtained at a retail establishment. The patient is known to be diabetic, and her blood sugars appear to be reasonably well controlled, based upon the patient's account. The previous wound in the left lower extremity has remained healed. The patient has continued to implement conservative treatment measures previously recommended, including leg elevation, avoidance of idle standing and sitting, active lifestyle, attempts at weight loss, and the use of graduated compression stockings on a daily basis, of 20 to 30 mmHg compression. Past Medical History Past Medical History: Chronic Problems Traumatic open wound of lower leg (Chronic) Leg swelling (Chronic) Edema of leg (Chronic) Diabetes mellitus (Chronic) Morbid obesity with BMI of 45.0-49.9, adult (Chronic) COPD (chronic obstructive pulmonary disease) (Chronic) Coronary artery arteriosclerosis (Chronic) Lumbar disc disease with radiculopathy (Chronic) Chronic wound of extremity (Chronic) Ulcer of calf due to diabetes mellitus (Chronic) Surgical History: - - The patient has a history of coronary artery stent placement. She has undergone open reduction and internal fixation of a left tibia fracture. She underwent right meniscus repair in the past. She is a Ab0. Allergies/Adverse Reactions: Allergies bee venom protein (honey bee) Adverse Reaction (Verified 03/19/19 09:02) Swelling Home Medications: Ambulatory Orders Medication Instructions Recorded Aspirin E.C. [Ecotrin] 81 mg PO DAILY@0800 09/03/13 Hydrocodone/Acetaminophen [Vicodin 1 - 2 tablet PO Q6H PRN PRN 09/03/13 5-300 mg Tablet] Lisinopril 10 mg PO DAILY 09/03/13 Metformin [Metformin HCl] 1,000 mg PO BID 09/03/13 Metoprolol Tartrate 50 mg PO DAILY 09/03/13 Dulaglutide [Trulicity] 0.75 mg SQ 01/02/18 Fluticasone/Vilanterol [Breo 1 each IH 01/02/18 Ellipta 200-25 Mcg INH] Insulin Glargine,Hum.rec.anlog 56 unit BID 01/02/18 [Lantus] Sitagliptin Phosphate [Januvia] 25 mg PO DAILY 01/02/18 Tiotropium [place] [Spiriva] 18 mcg IH 01/02/18 - Family History Paternal - - The patient's father at the age of 78 with history of chronic obstructive pulmonary disease. The patient's mother at the age of 84 with history of chronic obstructive pulmonary disease. Smoking Status: Former smoker Tobacco Use: Non-smoker Review of Systems Constitutional: Denies: Chills, Fever, Weight Change Eyes: Denies: Pain, Vision Change HEENT: Denies: Difficulty Hearing, Difficulty Swallowing, Sinus Congestion Cardiovascular: Denies: Chest Pain, Palpitations Respiratory: Denies: Cough, Shortness of Breath Gastrointestinal: Denies: Diarrhea, Nausea, Vomiting Genitourinary: Denies: Dysuria, Hematuria Endocrine: Denies: Heat/ Cold Intolerance, Polydipsia, Polyuria Hematologic/ Lymphatic: Denies: Easy Bruising, Easy Bleeding - Physical Exam Vital Signs Temp Pulse Resp BP 98.2 F 113 H 20 H 145/73 H 09/24/19 08:09 09/24/19 08:09 09/24/19 08:09 09/24/19 08:09 General: Alert, Oriented x3, Cooperative, No apparent distress, Well developed, Well nourished HEENT: Atraumatic, PERRLA, EOMI, Normocephalic Oral: Moist Mucosa Neck: No JVD Lungs: Normal air movement Abdomen: Non-Distended, Obese Extremities: No clubbing, No cyanosis, - - Mild swelling and edema persists in the patient's right lower extremity. The 2 ulcerations on the right lateral calf persist as well. Dimensions are documented elsewhere. There is a mild amount of bioburden. Noticeable redness and erythema persist as well. Wound Measurements and Assessment WC - Nurse 1 - General Ulcer Measurement Start: 09/24/19 08:09 Freq: Status: Active Protocol: Activity Type Activity Date Activity User E-Sign Co-Sign Detail Recorded Client Recorded Date Recorded By Document 09/24/19 08:09 [email or web address] [id number] 09/24/19 08:15 DL 09/24/19 08:09 Wound Center Nurse 1 [Ulcer Assessment] #3 LATERAL RLE -Current Size (cm) - Length 2 -Current Size (cm) - Width 2.2 -Current Size (cm) - Depth 0.5 -Total Square Cm 4.4 -Photo Taken No -Exudate Amt Small -Exudate Type Serosanguineous -Wound Margin Distinct, Outline Attached -Granulation Amt Medium (34-66%) -Granulation Quality Red -Necrosis Amt Medium (34-66%) -Necrotic Tissue Type Adherent Slough -Structure Exposed N/A -Texture (Ketty-wound Skin Appearance) Scarring -Moisture (Ketty-wound Skin Appearance No Abnormality ) -Color (Ketty-wound Skin Appearance) Erythema, Hemosiderin Staining -Temperature (Ketty-wound Skin No Abnormality Appearance) (Pt Warm) -Tenderness on Palpation (Ketty-wound Yes Skin Appearance) -Ulcer Cleansing Wound Cleanser -Foul Odor after Cleansing No -Anesthetic Used 4% Lidocaine Solution,5% Lidocaine Gel #2 R Vaz -Current Size (cm) - Length 3 -Current Size (cm) - Width 2.8 -Current Size (cm) - Depth 0.2 -Total Square Cm 8.4 -Photo Taken No -Exudate Amt Small -Exudate Type Serosanguineous -Wound Margin Distinct, Outline Attached -Granulation Amt Medium (34-66%) -Granulation Quality Red -Necrosis Amt Medium (34-66%) -Necrotic Tissue Type Adherent Slough -Structure Exposed N/A -Texture (Ketty-wound Skin Appearance) Scarring -Moisture (Ketty-wound Skin Appearance No Abnormality ) -Color (Ketty-wound Skin Appearance) Erythema, Hemosiderin Staining -Temperature (Ketty-wound Skin No Abnormality Appearance) (Pt Warm) -Tenderness on Palpation (Ketty-wound Yes Skin Appearance) -Ulcer Cleansing Wound Cleanser -Foul Odor after Cleansing No -Anesthetic Used 4% Lidocaine Solution,5% Lidocaine Gel [Edema Assessment] -Right Calf (cm) 41.5 -Right Ankle (cm) 24.7 WC - Nurse 2 - General Ulcer CM Notes Start: 09/24/19 08:09 Freq: Status: Active Protocol: Activity Type Activity Date Activity User E-Sign Co-Sign Detail Recorded Client Recorded Date Recorded By Document 09/24/19 08:39 DV [id number] 09/24/19 08:47 DV 09/24/19 08:39 Wound Center Nurse 2 [Procedure/Treatment] #3 LATERAL RLE -Time 08:41 -Correct Patient Yes -Correct Side, Site, Position Yes -Correct Procedure Yes -Procedure Performed Yes -Type of Procedure Debridement -Clinical Debridement Subcutaneous -Post Debridement Size (cm) - Length 2.0 -Post Debridement Size (cm) - Width 2.1 -Post Debridement Size (cm) - Depth 0.4 -Total Square Cm 4.20 -Wound/Ulcer Outcome Not Healed -Ulcer Cleansing Rinsed/ Irrigated with Saline -Foul Odor after Cleansing No -Bioengineered Tissue No -Bleeding Controlled with Pressure -Offloading No -Type of Offloading Surgical Shoe -Treatment Response Procedure Tolerated Well #2 R Vaz -Time 08:41 -Correct Patient Yes -Correct Side, Site, Position Yes -Correct Procedure Yes -Procedure Performed Yes -Type of Procedure Debridement -Clinical Debridement Subcutaneous -Post Debridement Size (cm) - Length 3.0 -Post Debridement Size (cm) - Width 2.7 -Post Debridement Size (cm) - Depth 0.3 -Total Square Cm 8.10 -Wound/Ulcer Outcome Not Healed -Ulcer Cleansing Rinsed/ Irrigated with Saline -Foul Odor after Cleansing No -Bioengineered Tissue No -Bleeding Controlled with Pressure -Offloading No -Treatment Response Procedure Tolerated Well [See Physician Procedure note for Specifics] Pain Scale: 0-10 Numeric [Pain] -Is Patient Pain Free? Yes Musculoskeletal: No Muscle Wasting Neurological: Cranial nerves II-XII grossly intact, Neuro grossly intact Psych/Mental Status: Normal Affect, Appropriate, Alert and oriented to time, place, person, mood and affect Debridement Note Post-Debridement Measurements/Treatment WC - Nurse 2 - General Ulcer CM Notes Start: 09/24/19 08:09 Freq: Status: Active Protocol: Activity Type Activity Date Activity User E-Sign Co-Sign Detail Recorded Client Recorded Date Recorded By Document 09/24/19 08:39 DV [id number] 09/24/19 08:47 DV 09/24/19 08:39 Wound Center Nurse 2 #3 LATERAL RLE -Time 08:41 -Correct Patient Yes -Correct Side, Site, Position Yes -Correct Procedure Yes -Procedure Performed Yes -Type of Procedure Debridement -Clinical Debridement Subcutaneous -Post Debridement Size (cm) - Length 2.0 -Post Debridement Size (cm) - Width 2.1 -Post Debridement Size (cm) - Depth 0.4 -Total Square Cm 4.20 -Wound/Ulcer Outcome Not Healed -Ulcer Cleansing Rinsed/ Irrigated with Saline -Foul Odor after Cleansing No -Bioengineered Tissue No -Bleeding Controlled with Pressure -Offloading No -Type of Offloading Surgical Shoe -Treatment Response Procedure Tolerated Well #2 R Vaz -Time 08:41 -Correct Patient Yes -Correct Side, Site, Position Yes -Correct Procedure Yes -Procedure Performed Yes -Type of Procedure Debridement -Clinical Debridement Subcutaneous -Post Debridement Size (cm) - Length 3.0 -Post Debridement Size (cm) - Width 2.7 -Post Debridement Size (cm) - Depth 0.3 -Total Square Cm 8.10 -Wound/Ulcer Outcome Not Healed -Ulcer Cleansing Rinsed/ Irrigated with Saline -Foul Odor after Cleansing No -Bioengineered Tissue No -Bleeding Controlled with Pressure -Offloading No -Treatment Response Procedure Tolerated Well Pain Scale: 0-10 Numeric Is Patient Pain Free? Yes Laterality: Right - Right lateral calf x2 Type of Debridement: Excisional debridement Anesthesia Used: 5% Lidocaine Gel Depth: Down to and including healthy tissue, in the subcutaneous layer Percentage of wound debrided: 100 Instrument Used: 5mm curette Tissue Removed: Bioburden Severity: Fat Layer Exposed Amount of bleeding with debridement: Mild Bleeding Controlled with: Compression and gauze Patient tolerated procedure well - Topical anesthetic. Although the patient tolerated the debridement well, she did experience a mild amount of discomfort, despite the prior application of topical anesthetic. Assessment/Plan Active Problems Traumatic open wound of lower leg (Chronic) Leg swelling (Chronic) Edema of leg (Chronic) Diabetes mellitus (Chronic) Morbid obesity with BMI of 45.0-49.9, adult (Chronic) Chronic wound of extremity (Chronic) Ulcer of calf due to diabetes mellitus (Chronic) Assessment: This is a 58-year-old female who presented with traumatic wounds on the right lower extremity, of several months duration. The ulceration overlying the right bunion remains completely healed. A noninvasive lower extremity arterial study performed about 1 year ago was normal, revealing triphasic waveforms at ankle level bilaterally, normal resting ankle?brachial indices bilaterally, and normal digital-brachial indices bilaterally. The ulcerations on the anterolateral aspect of the right calf have shown slight improvement in recent weeks. Cultures were obtained several weeks ago, which were positive for Pseudomonas aeruginosa. Based upon culture and sensitivity results, the patient was placed on Levaquin 750 mg daily, the course of which has been completed. There appears to be significant improvement, but mild erythema persisted. Therefore, swab cultures were again obtained, which were positive for rare species of Staphylococcus, Streptococcus, and Corynebacterium. Due to the rare occurrence of these bacterial species, there felt to be skin contaminants, and not warranting a course of antibiotic treatment. However, due to the continuing presence of redness and erythema, we have again cultured the wounds for both aerobic and anaerobic bacterial growth. A battery of diagnostic tests have been recently obtained, with results as follows: Glucose 172, BUN 19, creatinine 0.82, total protein 7.0, albumin 3.8, calcium 9.0, AST 32, alkaline phosphatase 70, ALT 47, total bilirubin 0.40, sodium 136, potassium 4.5, chloride 103, serum prealbumin 31.2, hemoglobin A1c 8.9, white blood count 6.0, hemoglobin 13.2, hematocrit 41.3, platelets 181,000. According to the patient, her blood sugars continue to run around 150 each day, and she indicates that she is consuming a well-balanced and nutritious diet. Plan: Patient has been counseled as to the appropriate foot care necessary in diabetic patients. We have noticed today that there is increasing callus overlying the bunion of the right foot. Patient has been strongly urged to seek evaluation by a configuration consultant, for the fitting of appropriate footwear. Her current shoes are judged to be likely inadequate, given the reemergence of callus at the site of her previous ulceration overlying the bunion. Furthermore, frequent inspection of the patient's feet, appropriate toenail trimming by professional, etc., have been recommended. Patient has been advised to optimize her glycemic control. Adequate nutrition has been advised. Whereas PuraPly was placed at the patient's last visit, we are to reimplement the use of collagenase Santyl topically on a daily basis. Patient is to follow-up in 2 weeks for reevaluation. In the interim, we will await the results of swab cultures of the patient's right calf ulcerations. We will respond accordingly, based upon the results of her cultures. The patient is to continue wearing her graduated compression stockings of 20 to 30 mmHg compression on a daily basis. The patient is to continue elevating her legs as much as possible. She is to avoid prolonged idle sitting. The patient has been encouraged to assure adequate nutrition. Optimizing glycemic control has also been advised. Weight loss has also been recommended. She will follow-up in our clinic in 2 weeks. Influenza vaccine was not administered today. The patient is not a smoker. Patient weighs 265 pounds. She stands 5 feet 4 inches tall. Her BMI is 45.5, which places her in a class III category. Weight loss has been recommended, and collaboration with the patient's primary care physician has been recommended.
[2019-10-08 08:18] VITALS: BP 138/70; PULSE 92; RESP 20; TEMP 36.9; BMI 44.9
--- NOTE | 2019-10-08 08:49 | PCM.WC.HP ---
(1) Traumatic open wound of lower leg Status: Chronic Current Visit: Yes Qualifiers: Encounter type: subsequent encounter Code(s): S81.809A - Unspecified open wound, unspecified lower leg, initial encounter (2) Leg swelling Status: Chronic Current Visit: Yes Code(s): M79.89 - Other specified soft tissue disorders (3) Edema of leg Status: Chronic Current Visit: Yes Code(s): R60.0 - Localized edema (4) Diabetes mellitus Status: Chronic Current Visit: Yes Qualifiers: Diabetes mellitus type: type 2 Code(s): E11.9 - Type 2 diabetes mellitus without complications (5) Morbid obesity with BMI of 45.0-49.9, adult Status: Chronic Current Visit: Yes Code(s): E66.01 - Morbid (severe) obesity due to excess calories; Z68.42 - Body mass index (BMI) 45.0-49.9, adult (6) COPD (chronic obstructive pulmonary disease) Status: Chronic Current Visit: No Code(s): J44.9 - Chronic obstructive pulmonary disease, unspecified (7) Coronary artery arteriosclerosis Status: Chronic Current Visit: No Code(s): I25.10 - Atherosclerotic heart disease of [place] coronary artery without angina pectoris (8) Lumbar disc disease with radiculopathy Status: Chronic Current Visit: No Code(s): M51.16 - Intervertebral disc disorders with radiculopathy, lumbar region (9) Chronic wound of extremity Status: Chronic Current Visit: Yes (10) Ulcer of calf due to diabetes mellitus Status: Chronic Current Visit: Yes Code(s): E11.622 - Type 2 diabetes mellitus with other skin ulcer; L97.209 - Non-pressure chronic ulcer of unspecified calf with unspecified severity History of Present Illness Date of Service: 10/08/19 Chief Complaint: Chronic open wound of the right lower extremity secondary to diabetes mellitus, Diabetic right foot wound - [place] Grade 1 History of Wound: This is a 58-year-old diabetic female who has been previously treated in our facility for a traumatic wound on the left lower extremity. She presented this time with wounds in her right lower extremity. There are 2 wounds involving the right calf, which were initially traumatic in origin. They are located on the right anterior tibial surface and on the right lateral calf. These occurred due to impact with a car door in December 2018. It is felt, however, that the failure of the patient's wounds to heal is due to her longstanding diabetes mellitus. The patient has been using Collagenase Santyl topically. She also developed a more recent ulceration on the right foot, located overlying a bunion, which has now subsequently healed. According the patient, this occurred as a result of a new pair of sneakers, which she obtained at a retail establishment. The patient is known to be diabetic, and her blood sugars appear to be reasonably well controlled, based upon the patient's account. The previous wound in the left lower extremity has remained healed. The patient has continued to implement conservative treatment measures previously recommended, including leg elevation, avoidance of idle standing and sitting, active lifestyle, attempts at weight loss, and the use of graduated compression stockings on a daily basis, of 20 to 30 mmHg compression. Past Medical History Past Medical History: Chronic Problems Traumatic open wound of lower leg (Chronic) Leg swelling (Chronic) Edema of leg (Chronic) Diabetes mellitus (Chronic) Morbid obesity with BMI of 45.0-49.9, adult (Chronic) COPD (chronic obstructive pulmonary disease) (Chronic) Coronary artery arteriosclerosis (Chronic) Lumbar disc disease with radiculopathy (Chronic) Chronic wound of extremity (Chronic) Ulcer of calf due to diabetes mellitus (Chronic) Surgical History: - - The patient has a history of coronary artery stent placement. She has undergone open reduction and internal fixation of a left tibia fracture. She underwent right meniscus repair in the past. She is a Ab0. Allergies/Adverse Reactions: Allergies bee venom protein (honey bee) Adverse Reaction (Verified 03/19/19 09:02) Swelling Home Medications: Ambulatory Orders Medication Instructions Recorded Aspirin E.C. [Ecotrin] 81 mg PO DAILY@0800 09/03/13 Hydrocodone/Acetaminophen [Vicodin 1 - 2 tablet PO Q6H PRN PRN 09/03/13 5-300 mg Tablet] Lisinopril 10 mg PO DAILY 09/03/13 Metformin [Metformin HCl] 1,000 mg PO BID 09/03/13 Metoprolol Tartrate 50 mg PO DAILY 09/03/13 Dulaglutide [Trulicity] 0.75 mg SQ 01/02/18 Fluticasone/Vilanterol [Breo 1 each IH 01/02/18 Ellipta 200-25 Mcg INH] Insulin Glargine,Hum.rec.anlog 56 unit BID 01/02/18 [Lantus] Sitagliptin Phosphate [Januvia] 25 mg PO DAILY 01/02/18 Tiotropium [place] [Spiriva] 18 mcg IH 01/02/18 - Family History Paternal - - The patient's father at the age of 78 with history of chronic obstructive pulmonary disease. The patient's mother at the age of 84 with history of chronic obstructive pulmonary disease. Smoking Status: Former smoker Tobacco Use: Non-smoker Review of Systems Constitutional: Denies: Chills, Fever, Weight Change Eyes: Denies: Pain, Vision Change HEENT: Denies: Difficulty Hearing, Difficulty Swallowing, Sinus Congestion Cardiovascular: Denies: Chest Pain, Palpitations Respiratory: Denies: Cough, Shortness of Breath Gastrointestinal: Denies: Diarrhea, Nausea, Vomiting Genitourinary: Denies: Dysuria, Hematuria Endocrine: Denies: Heat/ Cold Intolerance, Polydipsia, Polyuria Hematologic/ Lymphatic: Denies: Easy Bruising, Easy Bleeding - Physical Exam Vital Signs Temp Pulse Resp BP 98.4 F 92 20 H 138/70 H 10/08/19 08:18 10/08/19 08:18 10/08/19 08:18 10/08/19 08:18 General: Alert, Oriented x3, Cooperative, No apparent distress, Well developed, Well nourished, - - Patient is morbidly obese HEENT: Atraumatic, PERRLA, EOMI, Normocephalic Oral: Moist Mucosa Neck: No JVD Lungs: Normal air movement Abdomen: Non-Distended Extremities: No clubbing, No cyanosis, No edema, No Calf Tenderness, - - The 2 ulcerations on the anterolateral aspect of the right calf persist. There is a moderate amount of bioburden and nonviable tissue present. Slight erythema persists. Dimensions are documented elsewhere. There is no significant swelling or edema in the patient's lower extremities. Wound Measurements and Assessment WC - Nurse 1 - General Ulcer Measurement Start: 09/24/19 08:09 Freq: Status: Active Protocol: Activity Type Activity Date Activity User E-Sign Co-Sign Detail Recorded Client Recorded Date Recorded By Document 10/08/19 08:18 DL [id number] 10/08/19 08:28 DL 10/08/19 08:18 Wound Center Nurse 1 [Ulcer Assessment] #3 LATERAL RLE -Current Size (cm) - Length 2 -Current Size (cm) - Width 1.9 -Current Size (cm) - Depth 0.2 -Total Square Cm 3.8 -Photo Taken No -Exudate Amt Small -Exudate Type Serosanguineous -Wound Margin Distinct, Outline Attached -Granulation Amt None Present (0 %) -Necrosis Amt Large (67-100%) -Necrotic Tissue Type Adherent Slough -Structure Exposed N/A -Texture (Ketty-wound Skin Appearance) Scarring -Moisture (Ketty-wound Skin Appearance No Abnormality ) -Color (Ketty-wound Skin Appearance) Erythema, Hemosiderin Staining -Temperature (Ketty-wound Skin No Abnormality Appearance) (Pt Warm) -Tenderness on Palpation (Ketty-wound Yes Skin Appearance) -Ulcer Cleansing Wound Cleanser -Foul Odor after Cleansing No -Anesthetic Used 4% Lidocaine Solution,5% Lidocaine Gel #2 R Vaz -Current Size (cm) - Length 2.7 -Current Size (cm) - Width 2.4 -Current Size (cm) - Depth 0.2 -Total Square Cm 6.48 -Photo Taken No -Exudate Amt Small -Exudate Type Serosanguineous -Wound Margin Distinct, Outline Attached -Granulation Amt None Present (0 %) -Necrosis Amt Large (67-100%) -Necrotic Tissue Type Adherent Slough -Structure Exposed N/A -Texture (Ketty-wound Skin Appearance) Scarring -Moisture (Ketty-wound Skin Appearance No Abnormality ) -Color (Ketty-wound Skin Appearance) Erythema, Hemosiderin Staining -Temperature (Ketty-wound Skin No Abnormality Appearance) (Pt Warm) -Tenderness on Palpation (Ketty-wound Yes Skin Appearance) -Ulcer Cleansing Wound Cleanser -Foul Odor after Cleansing No -Anesthetic Used 4% Lidocaine Solution,5% Lidocaine Gel [Edema Assessment] -Right Calf (cm) 41.0 -Right Ankle (cm) 24.4 Musculoskeletal: No Muscle Wasting Neurological: Cranial nerves II-XII grossly intact, Neuro grossly intact Psych/Mental Status: Normal Affect, Appropriate, Alert and oriented to time, place, person, mood and affect Debridement Note Post-Debridement Measurements/Treatment WC - Nurse 2 - General Ulcer CM Notes Start: 09/24/19 08:09 Freq: Status: Active Protocol: Activity Type Activity Date Activity User E-Sign Co-Sign Detail Recorded Client Recorded Date Recorded By Document 09/24/19 08:39 DV [id number] 09/24/19 08:47 DV 09/24/19 08:39 Wound Center Nurse 2 #3 LATERAL RLE -Time 08:41 -Correct Patient Yes -Correct Side, Site, Position Yes -Correct Procedure Yes -Procedure Performed Yes -Type of Procedure Debridement -Clinical Debridement Subcutaneous -Post Debridement Size (cm) - Length 2.0 -Post Debridement Size (cm) - Width 2.1 -Post Debridement Size (cm) - Depth 0.4 -Total Square Cm 4.20 -Wound/Ulcer Outcome Not Healed -Ulcer Cleansing Rinsed/ Irrigated with Saline -Foul Odor after Cleansing No -Bioengineered Tissue No -Bleeding Controlled with Pressure -Offloading No -Type of Offloading Surgical Shoe -Treatment Response Procedure Tolerated Well #2 R Vaz -Time 08:41 -Correct Patient Yes -Correct Side, Site, Position Yes -Correct Procedure Yes -Procedure Performed Yes -Type of Procedure Debridement -Clinical Debridement Subcutaneous -Post Debridement Size (cm) - Length 3.0 -Post Debridement Size (cm) - Width 2.7 -Post Debridement Size (cm) - Depth 0.3 -Total Square Cm 8.10 -Wound/Ulcer Outcome Not Healed -Ulcer Cleansing Rinsed/ Irrigated with Saline -Foul Odor after Cleansing No -Bioengineered Tissue No -Bleeding Controlled with Pressure -Offloading No -Treatment Response Procedure Tolerated Well Pain Scale: 0-10 Numeric Is Patient Pain Free? Yes Laterality: Right - Anterolateral calf Type of Debridement: Excisional debridement Anesthesia Used: 5% Lidocaine Gel Depth: Down to and including healthy tissue, in the subcutaneous layer Percentage of wound debrided: 100 Instrument Used: 5mm curette Severity: Fat Layer Exposed Amount of bleeding with debridement: Mild Bleeding Controlled with: Compression and gauze Patient tolerated procedure well Assessment/Plan Active Problems Traumatic open wound of lower leg (Chronic) Leg swelling (Chronic) Edema of leg (Chronic) Diabetes mellitus (Chronic) Morbid obesity with BMI of 45.0-49.9, adult (Chronic) Chronic wound of extremity (Chronic) Ulcer of calf due to diabetes mellitus (Chronic) Assessment: This is a 58-year-old female who presented with traumatic wounds on the right lower extremity, of several months duration. The ulceration overlying the right bunion remains completely healed. A noninvasive lower extremity arterial study performed about 1 year ago was normal, revealing triphasic waveforms at ankle level bilaterally, normal resting ankle?brachial indices bilaterally, and normal digital-brachial indices bilaterally. The ulcerations on the anterolateral aspect of the right calf have shown little improvement in recent weeks. Cultures were obtained 2 weeks ago, which were positive for Pseudomonas aeruginosa. Based upon culture and sensitivity results, the patient was placed on Levaquin 500 mg daily, which continues. An anaerobic cocci was also isolated, and the patient was placed on Flagyl 500 mg p.o. 3 times daily for a total of 10 days. This also continues. It is noted that the patient has had recurring infections of her right lower extremity ulcerations, with a variety of different organisms. It appears as though treatment with specific antibiotics may superselect other resistant organisms, which then become pathogenic, requiring treatment as well. A battery of diagnostic tests have been recently obtained, with results as follows: Glucose 172, BUN 19, creatinine 0.82, total protein 7.0, albumin 3.8, calcium 9.0, AST 32, alkaline phosphatase 70, ALT 47, total bilirubin 0.40, sodium 136, potassium 4.5, chloride 103, serum prealbumin 31.2, hemoglobin A1c 8.9, white blood count 6.0, hemoglobin 13.2, hematocrit 41.3, platelets 181,000. According to the patient, her blood sugars continue to run around 150 each day, and she indicates that she is consuming a well-balanced and nutritious diet. Plan: Patient has been counseled as to the appropriate foot care necessary in diabetic patients. We have noticed today that there is increasing callus overlying the bunion of the right foot. Patient has been strongly urged to seek evaluation by a employment security officer, for the fitting of appropriate footwear. Her current shoes are judged to be likely inadequate, given the reemergence of callus at the site of her previous ulceration overlying the bunion. Furthermore, frequent inspection of the patient's feet, appropriate toenail trimming by professional, etc., have been recommended. Patient has been advised to optimize her glycemic control. Adequate nutrition has been advised. We are to continue the use of collagenase Santyl topically on a daily basis. Patient is to follow-up in 2 weeks for reevaluation. Given the recurrent infections of the patient's right lower extremity ulcerations, often with different organisms, we are to proceed with consultation of the Infectious Disease service, seeking recommendations as to how to avoid these recurrent infections. We will request that the patient be evaluated by Dr. Busby. It is suspected that these bacterial infections are inhibiting the progress of wound healing, and that the patient would benefit from eradication of these bacterial pathogens in the ulcer environment. The patient is to continue wearing her graduated compression stockings of 20 to 30 mmHg compression on a daily basis. The patient is to continue elevating her legs as much as possible. She is to avoid prolonged idle sitting. The patient has been encouraged to assure adequate nutrition. Optimizing glycemic control has also been advised. Weight loss has also been recommended. She will follow-up in our clinic in 2 weeks. Influenza vaccine was not administered today. The patient is not a smoker. Patient weighs 265 pounds. She stands 5 feet 4 inches tall. Her BMI is 45.5, which places her in a class III category. Weight loss has been recommended, and collaboration with the patient's primary care physician has been recommended.
[2019-10-22 08:08] VITALS: BP 118/65; PULSE 85; RESP 20; TEMP 36.6; BMI 44.9
--- NOTE | 2019-10-22 09:00 | HP.PCM_ITS ---
(1) Traumatic open wound of lower leg Status: Chronic Current Visit: Yes Qualifiers: Encounter type: subsequent encounter Code(s): S81.809A - Unspecified open wound, unspecified lower leg, initial encounter (2) Leg swelling Status: Chronic Current Visit: Yes Code(s): M79.89 - Other specified soft tissue disorders (3) Edema of leg Status: Chronic Current Visit: Yes Code(s): R60.0 - Localized edema (4) Diabetes mellitus Status: Chronic Current Visit: Yes Qualifiers: Diabetes mellitus type: type 2 Code(s): E11.9 - Type 2 diabetes mellitus without complications (5) Morbid obesity with BMI of 45.0-49.9, adult Status: Chronic Current Visit: Yes Code(s): E66.01 - Morbid (severe) obesity due to excess calories; Z68.42 - Body mass index (BMI) 45.0-49.9, adult (6) COPD (chronic obstructive pulmonary disease) Status: Chronic Current Visit: No Code(s): J44.9 - Chronic obstructive pulmonary disease, unspecified (7) Coronary artery arteriosclerosis Status: Chronic Current Visit: No Code(s): I25.10 - Atherosclerotic heart disease of [place] coronary artery without angina pectoris (8) Lumbar disc disease with radiculopathy Status: Chronic Current Visit: No Code(s): M51.16 - Intervertebral disc disorders with radiculopathy, lumbar region (9) Chronic wound of extremity Status: Chronic Current Visit: Yes (10) 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 She presented this time with wounds in her right lower extremity. There are 2 wounds involving the right calf, which were initially traumatic in origin. They are located on the right anterior tibial surface and on the right lateral calf. These occurred due to impact with a car door in December 2018. It is felt, however, that the failure of the patient's wounds to heal is due to her longstanding diabetes mellitus. The patient has been using Collagenase Santyl topically. She also developed a more recent ulceration on the right foot, located overlying a bunion, which has now subsequently healed. According the patient, this occurred as a result of a new pair of sneakers, which she obtained at a retail establishment. The patient is known to be diabetic, and her blood sugars appear to be reasonably well controlled, based upon the patient's account. The previous wound in the left lower extremity has remained healed. The patient has continued to implement conservative treatment measures previously recommended, including leg elevation, avoidance of idle standing and sitting, active lifestyle, attempts at weight loss, and the use of graduated compression stockings on a daily basis, of 20 to 30 mmHg compression. Past Medical History Past Medical History: Chronic Problems Traumatic open wound of lower leg (Chronic) Leg swelling (Chronic) Edema of leg (Chronic) Diabetes mellitus (Chronic) Morbid obesity with BMI of 45.0-49.9, adult (Chronic) COPD (chronic obstructive pulmonary disease) (Chronic) Coronary artery arteriosclerosis (Chronic) Lumbar disc disease with radiculopathy (Chronic) Chronic wound of extremity (Chronic) Ulcer of calf due to diabetes mellitus (Chronic) Surgical History: - - The patient has a history of coronary artery stent placement. She has undergone open reduction and internal fixation of a left tibia fracture. She underwent right meniscus repair in the past. She is a Ab0. Allergies/Adverse Reactions: Allergies bee venom protein (honey bee) Adverse Reaction (Verified 03/19/19 09:02) Swelling Home Medications: Ambulatory Orders Medication Instructions Recorded Aspirin E.C. [Ecotrin] 81 mg PO DAILY@0800 09/03/13 Hydrocodone/Acetaminophen [Vicodin 1 - 2 tablet PO Q6H PRN PRN 09/03/13 5-300 mg Tablet] Lisinopril 10 mg PO DAILY 09/03/13 Metformin [Metformin HCl] 1,000 mg PO BID 09/03/13 Metoprolol Tartrate 50 mg PO DAILY 09/03/13 Dulaglutide [Trulicity] 0.75 mg SQ 01/02/18 Fluticasone/Vilanterol [Breo 1 each IH 01/02/18 Ellipta 200-25 Mcg INH] Insulin Glargine,Hum.rec.anlog 56 unit BID 01/02/18 [Lantus] Sitagliptin Phosphate [Januvia] 25 mg PO DAILY 01/02/18 Tiotropium [place] [Spiriva] 18 mcg IH 01/02/18 - Family History Paternal - - The patient's father at the age of 78 with history of chronic obstructive pulmonary disease. The patient's mother at the age of 84 with history of chronic obstructive pulmonary disease. Smoking Status: Former smoker Tobacco Use: Non-smoker Review of Systems Constitutional: Denies: Chills, Fever, Weight Change Eyes: Denies: Pain, Vision Change HEENT: Denies: Difficulty Hearing, Difficulty Swallowing, Sinus Congestion Cardiovascular: Denies: Chest Pain, Palpitations Respiratory: Denies: Cough, Shortness of Breath Gastrointestinal: Denies: Diarrhea, Nausea, Vomiting Genitourinary: Denies: Dysuria, Hematuria Endocrine: Denies: Heat/ Cold Intolerance, Polydipsia, Polyuria Hematologic/ Lymphatic: Denies: Easy Bruising, Easy Bleeding - Physical Exam Vital Signs Temp Pulse Resp BP 97.8 F 85 20 H 118/65 10/22/19 08:08 10/22/19 08:08 10/22/19 08:08 10/22/19 08:08 General: Alert, Oriented x3, Cooperative, No apparent distress, Well developed, Well nourished HEENT: Atraumatic, PERRLA, EOMI, Normocephalic Oral: Moist Mucosa Neck: No JVD Lungs: Normal air movement Abdomen: Non-Distended Extremities: No clubbing, No cyanosis, No edema, No Calf Tenderness, - - There is no significant swelling and edema noted in the patient's lower extremities bilaterally. Ulcerations of the right anterolateral calf persists. There is a significant amount of bioburden and nonviable tissue, little changed from prior visits. Ketty-ulcer erythema persists. Dimensions are documented elsewhere. Wound Measurements and Assessment WC - Nurse 1 - General Ulcer Measurement Start: 09/24/19 08:09 Freq: Status: Active Protocol: Activity Type Activity Date Activity User E-Sign Co-Sign Detail Recorded Client Recorded Date Recorded By Document 10/22/19 08:08 MARCUS [id number] 10/22/19 08:17 DL 10/22/19 08:08 Wound Center Nurse 1 [Ulcer Assessment] #3 LATERAL RLE -Current Size (cm) - Length 2 -Current Size (cm) - Width 2 -Current Size (cm) - Depth 0.2 -Total Square Cm 4 -Photo Taken No -Exudate Amt Small -Exudate Type Serosanguineous -Wound Margin Distinct, Outline Attached -Granulation Amt Small (1-33%) -Granulation Quality Wren -Necrosis Amt Large (67-100%) -Necrotic Tissue Type Adherent Slough -Structure Exposed N/A -Texture (Ketty-wound Skin Appearance) Scarring -Moisture (Ketty-wound Skin Appearance No Abnormality ) -Color (Ketty-wound Skin Appearance) Erythema -Temperature (Ketty-wound Skin No Abnormality Appearance) (Pt Warm) -Tenderness on Palpation (Ketty-wound Yes Skin Appearance) -Ulcer Cleansing Wound Cleanser -Foul Odor after Cleansing No -Anesthetic Used 4% Lidocaine Solution #2 R Vaz -Current Size (cm) - Length 2.7 -Current Size (cm) - Width 2.8 -Current Size (cm) - Depth 0.2 -Total Square Cm 7.56 -Photo Taken No -Exudate Amt Small -Exudate Type Serosanguineous -Wound Margin Distinct, Outline Attached -Granulation Amt Small (1-33%) -Granulation Quality Wren -Necrosis Amt Large (67-100%) -Necrotic Tissue Type Adherent Slough -Structure Exposed N/A -Texture (Ketty-wound Skin Appearance) Scarring -Moisture (Ketty-wound Skin Appearance No Abnormality ) -Color (Ketty-wound Skin Appearance) Erythema -Temperature (Ketty-wound Skin No Abnormality Appearance) (Pt Warm) -Tenderness on Palpation (Ketty-wound No Skin Appearance) -Ulcer Cleansing Wound Cleanser -Foul Odor after Cleansing No -Anesthetic Used 4% Lidocaine Solution [Edema Assessment] -Right Calf (cm) 41 -Right Ankle (cm) 24.2 WC - Nurse 2 - General Ulcer CM Notes Start: 09/24/19 08:09 Freq: Status: Active Protocol: Activity Type Activity Date Activity User E-Sign Co-Sign Detail Recorded Client Recorded Date Recorded By Document 10/22/19 08:33 DV [id number] 10/22/19 08:36 DV 10/22/19 08:33 Wound Center Nurse 2 [Procedure/Treatment] #3 LATERAL RLE -Time 08:33 -Correct Patient Yes -Correct Side, Site, Position Yes -Correct Procedure Yes -Procedure Performed Yes -Type of Procedure Debridement -Clinical Debridement Subcutaneous -Post Debridement Size (cm) - Length 1.7 -Post Debridement Size (cm) - Width 2.0 -Post Debridement Size (cm) - Depth 0.4 -Total Square Cm 3.40 -Wound/Ulcer Outcome Not Healed -Ulcer Cleansing Rinsed/ Irrigated with Saline -Foul Odor after Cleansing No -Bioengineered Tissue No -Bleeding Controlled with Pressure #2 R Vaz -Time 08:34 -Correct Patient Yes -Correct Side, Site, Position Yes -Correct Procedure Yes -Procedure Performed Yes -Type of Procedure Debridement -Clinical Debridement Subcutaneous -Post Debridement Size (cm) - Length 3.2 -Post Debridement Size (cm) - Width 2.8 -Post Debridement Size (cm) - Depth 0.1 -Total Square Cm 8.96 -Wound/Ulcer Outcome Not Healed -Ulcer Cleansing Rinsed/ Irrigated with Saline -Foul Odor after Cleansing No -Bioengineered Tissue No -Bleeding Controlled with Pressure -Offloading No -Treatment Response Procedure Tolerated Well [See Physician Procedure note for Specifics] Pain Scale: 0-10 Numeric [Pain] -Is Patient Pain Free? Yes Musculoskeletal: No Muscle Wasting Neurological: Cranial nerves II-XII grossly intact, Neuro grossly intact Psych/Mental Status: Normal Affect, Appropriate, Alert and oriented to time, place, person, mood and affect Debridement Note Post-Debridement Measurements/Treatment WC - Nurse 2 - General Ulcer CM Notes Start: 09/24/19 08:09 Freq: Status: Active Protocol: Activity Type Activity Date Activity User E-Sign Co-Sign Detail Recorded Client Recorded Date Recorded By Document 09/24/19 08:39 DV [id number] 09/24/19 08:47 DV Document 10/08/19 08:49 DV [id number] 10/08/19 08:52 DV Document 10/22/19 08:33 DV [id number] 10/22/19 08:36 DV 09/24/19 10/08/19 10/22/19 08:39 08:49 08:33 Wound Center Nurse 2 #3 LATERAL RLE -Time 08:41 08:49 08:33 -Correct Patient Yes Yes -Correct Side, Site, Position Yes Yes -Correct Procedure Yes Yes -Procedure Performed Yes Yes -Type of Procedure Debridement Debridement -Clinical Debridement Subcutaneous Subcutaneous -Post Debridement Size (cm) - Length 2.0 2.1 1.7 -Post Debridement Size (cm) - Width 2.1 2.1 2.0 -Post Debridement Size (cm) - Depth 0.4 0.3 0.4 -Total Square Cm 4.20 4.41 3.40 -Wound/Ulcer Outcome Not Healed Not Healed Not Healed -Ulcer Cleansing Rinsed/ Rinsed/ Irrigated with Irrigated with Saline Saline -Foul Odor after Cleansing No No No -Bioengineered Tissue No No No -Bleeding Controlled with Pressure Pressure Pressure -Offloading No No -Type of Offloading Surgical Shoe -Treatment Response Procedure Procedure Tolerated Well Tolerated Well #2 R Vaz -Time 08:41 08:50 08:34 -Correct Patient Yes Yes Yes -Correct Side, Site, Position Yes Yes Yes -Correct Procedure Yes Yes Yes -Procedure Performed Yes Yes Yes -Type of Procedure Debridement Debridement Debridement -Clinical Debridement Subcutaneous Subcutaneous Subcutaneous -Post Debridement Size (cm) - Length 3.0 3.2 3.2 -Post Debridement Size (cm) - Width 2.7 2.8 2.8 -Post Debridement Size (cm) - Depth 0.3 0.2 0.1 -Total Square Cm 8.10 8.96 8.96 -Wound/Ulcer Outcome Not Healed Not Healed Not Healed -Ulcer Cleansing Rinsed/ Rinsed/ Rinsed/ Irrigated with Irrigated with Irrigated with Saline Saline Saline -Foul Odor after Cleansing No No No -Bioengineered Tissue No No No -Bleeding Controlled with Pressure Pressure Pressure -Offloading No No No -Treatment Response Procedure Procedure Procedure Tolerated Well Tolerated Well Tolerated Well Pain Scale: 0-10 Numeric Is Patient Pain Free? Yes Yes Yes Laterality: Right - Anterolateral calf Type of Debridement: Excisional debridement Anesthesia Used: 5% Lidocaine Gel Depth: Down to and including healthy tissue, in the subcutaneous layer Percentage of wound debrided: 100 Instrument Used: 5mm curette Tissue Removed: Bioburden and nonviable tissue Severity: Fat Layer Exposed Amount of bleeding with debridement: Mild Bleeding Controlled with: Compression and gauze Patient tolerated procedure well Assessment/Plan Active Problems Traumatic open wound of lower leg (Chronic) Leg swelling (Chronic) Edema of leg (Chronic) Diabetes mellitus (Chronic) Morbid obesity with BMI of 45.0-49.9, adult (Chronic) Chronic wound of extremity (Chronic) Ulcer of calf due to diabetes mellitus (Chronic) Assessment: This is a 58-year-old female who presented with traumatic wounds on the right lower extremity, of several months duration. The ulceration overlying the right bunion remains completely healed. A noninvasive lower extremity arterial study performed about 1 year ago was normal, revealing triphasic waveforms at ankle level bilaterally, normal resting ankle?brachial indices bilaterally, and normal digital-brachial indices bilaterally. The ulcerations on the anterolateral aspect of the right calf have shown little improvement in recent weeks. Cultures were recently obtained, which were positive for Pseudomonas aeruginosa. Based upon culture and sensitivity results, the patient was placed on Levaquin 500 mg daily, which has been completed. An anaerobic cocci was also isolated, and the patient was placed on Flagyl 500 mg p.o. 3 times daily for a total of 10 days, which has been completed. A battery of diagnostic tests have been recently obtained, with results as follows: Glucose 172, BUN 19, creatinine 0.82, total protein 7.0, albumin 3.8, calcium 9.0, AST 32, alkaline phosphatase 70, ALT 47, total bilirubin 0.40, sodium 136, potassium 4.5, chloride 103, serum prealbumin 31.2, hemoglobin A1c 8.9, white blood count 6.0, hemoglobin 13.2, hematocrit 41.3, platelets 181,000. According to the patient, her blood sugars continue to run around 150 each day, and she indicates that she is consuming a well-balanced and nutritious diet. Plan: Patient has been counseled as to the appropriate foot care necessary in diabetic patients. Patient has been strongly urged to seek evaluation by a intellectual property paralegal, for the fitting of appropriate footwear. Her current shoes are judged to be likely inadequate, given the reemergence of callus at the site of her previous ulceration overlying the bunion. Furthermore, frequent inspection of the patient's feet, appropriate toenail trimming by professional, etc., have been recommended. Patient has been advised to optimize her glycemic control. Adequate nutrition has been advised. We are to continue the use of collagenase Santyl topically relative to the right calf ulceration on a daily basis. Patient is to follow-up in 1 week for reevaluation. Given the recurrent infections of the patient's right lower extremity ulcerations, often with different organisms, we requested consultation with the Infectious Disease service, seeking recommendations as to how to avoid these recurrent infections. The patient has been evaluated within the last few days by Dr. Busby, infectious disease specialist, though his consultation note is not readily available at the time of the patient's current visit. It is not documented within [employer] for easy access. We will make effort to secure Dr. Busby's consultation recommendations. The patient is to continue wearing her graduated compression stockings of 20 to 30 mmHg compression on a daily basis. The patient is to continue elevating her legs as much as possible. She is to avoid prolonged idle sitting. The patient has been encouraged to assure adequate nutrition. Optimizing glycemic control has also been advised. Weight loss has also been recommended. She will follow-up in our clinic in 1 week. Influenza vaccine was not administered today. The patient is not a smoker. Patient weighs 265 pounds. She stands 5 feet 4 inches tall. Her BMI is 45.5, which places her in a class III category. Weight loss has been recommended, and collaboration with the patient's primary care physician has been recommended.
== END 2019-10-22 23:59 ==
LOC: WC 08:00
PROVIDERS: Family Provider Nurse Practitioner Primary Care; PCP Nurse Practitioner Primary Care; Referring Provider Surgery; Visit Provider Surgery
DX: E11.622 Type 2 diabetes mellitus with other skin ulcer (principal); J44.9 Chronic obstructive pulmonary disease, unspecified; R60.0 Localized edema; M79.89 Other specified soft tissue disorders; E66.01 Morbid (severe) obesity due to excess calories; Z68.42 Body mass index [BMI] 45.0-49.9, adult; I25.10 Atherosclerotic heart disease of native coronary artery without angina pectoris; M51.16 Intervertebral disc disorders with radiculopathy, lumbar region; L97.212 Non-pressure chronic ulcer of right calf with fat layer exposed; Z79.899 Other long term (current) drug therapy; Z79.4 Long term (current) use of insulin; Z87.891 Personal history of nicotine dependence; M21.611 Bunion of right foot
CPT/HCPCS: 11042; 87070; 87075; 87077; 87186; 87205

== ENCOUNTER 2019-11-12 08:00 | Outpatient (RCR) | payer OTHER, SELFPAY ==
[2019-10-23 00:24] VITALS: BP 118/65; PULSE 85; RESP 20; TEMP 36.6
[2019-11-05 08:09] VITALS: BP 133/60; PULSE 97; RESP 20; TEMP 36; BMI 44.9
--- NOTE | 2019-11-05 08:40 | PCM.WC.HP ---
(1) Traumatic open wound of lower leg Status: Chronic Current Visit: Yes Qualifiers: Encounter type: subsequent encounter Laterality: right Qualified Code(s): S81.801D - Unspecified open wound, right lower leg, subsequent encounter Code(s): S81.809A - Unspecified open wound, unspecified lower leg, initial encounter (2) Leg swelling Status: Chronic Current Visit: Yes Code(s): M79.89 - Other specified soft tissue disorders (3) Edema of leg Status: Chronic Current Visit: Yes Code(s): R60.0 - Localized edema (4) Diabetes mellitus Status: Chronic Current Visit: Yes Qualifiers: Diabetes mellitus type: type 2 Code(s): E11.9 - Type 2 diabetes mellitus without complications (5) Morbid obesity with BMI of 45.0-49.9, adult Status: Chronic Current Visit: Yes Code(s): E66.01 - Morbid (severe) obesity due to excess calories; Z68.42 - Body mass index (BMI) 45.0-49.9, adult (6) COPD (chronic obstructive pulmonary disease) Status: Chronic Current Visit: No Code(s): J44.9 - Chronic obstructive pulmonary disease, unspecified (7) Coronary artery arteriosclerosis Status: Chronic Current Visit: No Code(s): I25.10 - Atherosclerotic heart disease of [place] coronary artery without angina pectoris (8) Diabetic foot wound, Hubbard Grade 1 Status: Resolved Current Visit: No (9) Ulcer of foot due to diabetes Status: Resolved Current Visit: No Code(s): E11.621 - Type 2 diabetes mellitus with foot ulcer; L97.509 - Non-pressure chronic ulcer of other part of unspecified foot with unspecified severity (10) Lumbar disc disease with radiculopathy Status: Chronic Current Visit: No Code(s): M51.16 - Intervertebral disc disorders with radiculopathy, lumbar region (11) Chronic wound of extremity Status: Chronic Current Visit: Yes (12) Ulcer of calf due to diabetes mellitus Status: Chronic Current Visit: Yes Code(s): E11.622 - Type 2 diabetes mellitus with other skin ulcer; L97.209 - Non-pressure chronic ulcer of unspecified calf with unspecified severity History of Present Illness Date of Service: 11/05/19 Chief Complaint: Chronic open wound of the right lower extremity secondary to diabetes mellitus, Diabetic right foot wound - Hubbard Grade 1 History of Wound: This is a 58-year-old diabetic female who has been previously treated in our facility for a traumatic wound on the left lower extremity. She presented this time with wounds in her right lower extremity. There are 2 wounds involving the right calf, which were initially traumatic in origin. They are located on the right anterior tibial surface and on the right lateral calf. These occurred due to impact with a car door in December 2018. It is felt, however, that the failure of the patient's wounds to heal is due to her longstanding diabetes mellitus. The patient has been using Collagenase Santyl topically. She also developed a more recent ulceration on the right foot, located overlying a bunion, which has now subsequently healed. According the patient, this occurred as a result of a new pair of sneakers, which she obtained at a retail establishment. The patient is known to be diabetic, and her blood sugars appear to be reasonably well controlled, based upon the patient's account. The previous wound in the left lower extremity has remained healed. The patient has continued to implement conservative treatment measures previously recommended, including leg elevation, avoidance of idle standing and sitting, active lifestyle, attempts at weight loss, and the use of graduated compression stockings on a daily basis, of 20 to 30 mmHg compression. Past Medical History Past Medical History: Chronic Problems Traumatic open wound of lower leg (Chronic) Leg swelling (Chronic) Edema of leg (Chronic) Diabetes mellitus (Chronic) Morbid obesity with BMI of 45.0-49.9, adult (Chronic) COPD (chronic obstructive pulmonary disease) (Chronic) Coronary artery arteriosclerosis (Chronic) Lumbar disc disease with radiculopathy (Chronic) Chronic wound of extremity (Chronic) Ulcer of calf due to diabetes mellitus (Chronic) Surgical History: - - The patient has a history of coronary artery stent placement. She has undergone open reduction and internal fixation of a left tibia fracture. She underwent right meniscus repair in the past. She is a Ab0. Allergies/Adverse Reactions: Allergies bee venom protein (honey bee) Adverse Reaction (Verified 03/19/19 09:02) Swelling Home Medications: Ambulatory Orders Medication Instructions Recorded Aspirin E.C. [Ecotrin] 81 mg PO DAILY@0800 09/03/13 Hydrocodone/Acetaminophen [Vicodin 1 - 2 tablet PO Q6H PRN PRN 09/03/13 5-300 mg Tablet] Lisinopril 10 mg PO DAILY 09/03/13 Metformin [Metformin HCl] 1,000 mg PO BID 09/03/13 Metoprolol Tartrate 50 mg PO DAILY 09/03/13 Dulaglutide [Trulicity] 0.75 mg SQ 01/02/18 Fluticasone/Vilanterol [Breo 1 each IH 01/02/18 Ellipta 200-25 Mcg INH] Insulin Glargine,Hum.rec.anlog 56 unit BID 01/02/18 [Lantus] Sitagliptin Phosphate [Januvia] 25 mg PO DAILY 01/02/18 Tiotropium [place] [Spiriva] 18 mcg IH 01/02/18 - Family History Paternal - - The patient's father at the age of 78 with history of chronic obstructive pulmonary disease. The patient's mother at the age of 84 with history of chronic obstructive pulmonary disease. Smoking Status: Former smoker Tobacco Use: Non-smoker Review of Systems Constitutional: Denies: Chills, Fever, Weight Change Eyes: Denies: Pain, Vision Change HEENT: Denies: Difficulty Hearing, Difficulty Swallowing, Sinus Congestion Cardiovascular: Denies: Chest Pain, Palpitations Respiratory: Denies: Cough, Shortness of Breath Gastrointestinal: Denies: Diarrhea, Nausea, Vomiting Genitourinary: Denies: Dysuria, Hematuria Endocrine: Denies: Heat/ Cold Intolerance, Polydipsia, Polyuria Hematologic/ Lymphatic: Denies: Easy Bruising, Easy Bleeding - Physical Exam Vital Signs Temp Pulse Resp BP 96.8 F L 97 20 H 133/60 H 11/05/19 08:09 11/05/19 08:09 11/05/19 08:09 11/05/19 08:09 General: Alert, Oriented x3, Cooperative, No apparent distress, Well developed, Well nourished HEENT: Atraumatic, PERRLA, EOMI, Normocephalic Oral: Moist Mucosa Neck: No JVD Lungs: Normal air movement Abdomen: Non-Distended Extremities: No clubbing, No cyanosis, No edema, No Calf Tenderness, - - The 2 ulcerations on the right lateral calf persists. They are in close proximity. There is a mild amount of bioburden. There is no evidence of infection or cellulitis. The ulcerations appear to be somewhat more superficial than noted previously. Dimensions are documented elsewhere. Skin: No rashes Wound Measurements and Assessment WC - Nurse 1 - General Ulcer Measurement Start: 10/29/19 08:06 Freq: Status: Active Protocol: Activity Type Activity Date Activity User E-Sign Co-Sign Detail Recorded Client Recorded Date Recorded By Document 11/05/19 08:09 DL [id number] 11/05/19 08:18 DL 11/05/19 08:09 Wound Center Nurse 1 [Ulcer Assessment] #3 LATERAL RLE -Current Size (cm) - Length 2.2 -Current Size (cm) - Width 2 -Current Size (cm) - Depth 0.2 -Total Square Cm 4.4 -Photo Taken No -Exudate Amt Small -Exudate Type Serosanguineous -Wound Margin Distinct, Outline Attached -Granulation Amt Medium (34-66%) -Granulation Quality Red -Necrosis Amt Medium (34-66%) -Necrotic Tissue Type Adherent Slough -Structure Exposed N/A -Texture (Ketty-wound Skin Appearance) Scarring -Moisture (Ketty-wound Skin Appearance No Abnormality ) -Color (Ketty-wound Skin Appearance) Erythema -Temperature (Ketty-wound Skin No Abnormality Appearance) (Pt Warm) -Tenderness on Palpation (Ketty-wound No Skin Appearance) -Ulcer Cleansing Wound Cleanser -Foul Odor after Cleansing No -Anesthetic Used 4% Lidocaine Solution #2 R Vaz -Current Size (cm) - Length 2.6 -Current Size (cm) - Width 2.8 -Current Size (cm) - Depth 0.2 -Total Square Cm 7.28 -Photo Taken No -Exudate Amt Small -Exudate Type Serosanguineous -Wound Margin Distinct, Outline Attached -Granulation Amt Medium (34-66%) -Granulation Quality Red -Necrosis Amt Medium (34-66%) -Necrotic Tissue Type Adherent Slough -Structure Exposed N/A -Texture (Ketty-wound Skin Appearance) Scarring -Moisture (Ketty-wound Skin Appearance No Abnormality ) -Color (Ketty-wound Skin Appearance) Erythema -Temperature (Ketty-wound Skin No Abnormality Appearance) (Pt Warm) -Tenderness on Palpation (Ketty-wound No Skin Appearance) -Ulcer Cleansing Wound Cleanser -Foul Odor after Cleansing No -Anesthetic Used 4% Lidocaine Solution [Edema Assessment] -Right Calf (cm) 40 -Right Ankle (cm) 23.5 WC - Nurse 2 - General Ulcer CM Notes Start: 10/29/19 08:06 Freq: Status: Active Protocol: Activity Type Activity Date Activity User E-Sign Co-Sign Detail Recorded Client Recorded Date Recorded By Document 11/05/19 08:32 DV [id number] 11/05/19 08:38 DV 11/05/19 08:32 Wound Center Nurse 2 [Procedure/Treatment] #3 LATERAL RLE -Time 08:32 -Correct Patient Yes -Correct Side, Site, Position Yes -Correct Procedure Yes -Procedure Performed Yes -Type of Procedure Debridement -Clinical Debridement Subcutaneous -Post Debridement Size (cm) - Length 2.5 -Post Debridement Size (cm) - Width 2.0 -Post Debridement Size (cm) - Depth 0.2 -Total Square Cm 5.00 -Wound/Ulcer Outcome Not Healed -Ulcer Cleansing Rinsed/ Irrigated with Saline -Foul Odor after Cleansing No -Bioengineered Tissue No -Bleeding Controlled with Pressure -Offloading No -Treatment Response Procedure Tolerated Well #2 R Vaz -Time 08:33 -Correct Patient Yes -Correct Side, Site, Position Yes -Correct Procedure Yes -Procedure Performed Yes -Type of Procedure Debridement -Clinical Debridement Subcutaneous -Post Debridement Size (cm) - Length 3.0 -Post Debridement Size (cm) - Width 3.0 -Post Debridement Size (cm) - Depth 0.2 -Total Square Cm 9.00 -Wound/Ulcer Outcome Not Healed -Ulcer Cleansing Rinsed/ Irrigated with Saline -Foul Odor after Cleansing No -Bioengineered Tissue No -Bleeding Controlled with Pressure -Offloading No -Treatment Response Procedure Tolerated Well [See Physician Procedure note for Specifics] Pain Scale: 0-10 Numeric [Pain] -Is Patient Pain Free? Yes Musculoskeletal: No Muscle Wasting Neurological: Cranial nerves II-XII grossly intact, Neuro grossly intact Psych/Mental Status: Normal Affect, Appropriate, Alert and oriented to time, place, person, mood and affect Debridement Note Post-Debridement Measurements/Treatment WC - Nurse 2 - General Ulcer CM Notes Start: 10/29/19 08:06 Freq: Status: Active Protocol: Activity Type Activity Date Activity User E-Sign Co-Sign Detail Recorded Client Recorded Date Recorded By Document 11/05/19 08:32 DV [id number] 11/05/19 08:38 DV 11/05/19 08:32 Wound Center Nurse 2 #3 LATERAL RLE -Time 08:32 -Correct Patient Yes -Correct Side, Site, Position Yes -Correct Procedure Yes -Procedure Performed Yes -Type of Procedure Debridement -Clinical Debridement Subcutaneous -Post Debridement Size (cm) - Length 2.5 -Post Debridement Size (cm) - Width 2.0 -Post Debridement Size (cm) - Depth 0.2 -Total Square Cm 5.00 -Wound/Ulcer Outcome Not Healed -Ulcer Cleansing Rinsed/ Irrigated with Saline -Foul Odor after Cleansing No -Bioengineered Tissue No -Bleeding Controlled with Pressure -Offloading No -Treatment Response Procedure Tolerated Well #2 R Vaz -Time 08:33 -Correct Patient Yes -Correct Side, Site, Position Yes -Correct Procedure Yes -Procedure Performed Yes -Type of Procedure Debridement -Clinical Debridement Subcutaneous -Post Debridement Size (cm) - Length 3.0 -Post Debridement Size (cm) - Width 3.0 -Post Debridement Size (cm) - Depth 0.2 -Total Square Cm 9.00 -Wound/Ulcer Outcome Not Healed -Ulcer Cleansing Rinsed/ Irrigated with Saline -Foul Odor after Cleansing No -Bioengineered Tissue No -Bleeding Controlled with Pressure -Offloading No -Treatment Response Procedure Tolerated Well Pain Scale: 0-10 Numeric Is Patient Pain Free? Yes Laterality: Right - Lateral calf Type of Debridement: Excisional debridement Anesthesia Used: 5% Lidocaine Gel Depth: Down to and including healthy tissue, in the subcutaneous layer Percentage of wound debrided: 100 Instrument Used: 5mm curette Tissue Removed: Bioburden Severity: Fat Layer Exposed Amount of bleeding with debridement: Mild Bleeding Controlled with: Compression and gauze Patient tolerated procedure well Assessment/Plan Active Problems Traumatic open wound of lower leg (Chronic) Leg swelling (Chronic) Edema of leg (Chronic) Diabetes mellitus (Chronic) Morbid obesity with BMI of 45.0-49.9, adult (Chronic) Chronic wound of extremity (Chronic) Ulcer of calf due to diabetes mellitus (Chronic) Assessment: This is a 58-year-old female who presented with traumatic wounds on the right lower extremity, of several months duration. The ulceration overlying the right bunion remains completely healed. A noninvasive lower extremity arterial study performed about 1 year ago was normal, revealing triphasic waveforms at ankle level bilaterally, normal resting ankle?brachial indices bilaterally, and normal digital-brachial indices bilaterally. The ulcerations on the anterolateral aspect of the right calf have shown little improvement in recent weeks. Cultures were recently obtained, which were positive for Pseudomonas aeruginosa. Based upon culture and sensitivity results, the patient was placed on Levaquin 500 mg daily, which has been completed. An anaerobic cocci was also isolated, and the patient was placed on Flagyl 500 mg p.o. 3 times daily for a total of 10 days, which has been completed. A battery of diagnostic tests have been recently obtained, with results as follows: Glucose 172, BUN 19, creatinine 0.82, total protein 7.0, albumin 3.8, calcium 9.0, AST 32, alkaline phosphatase 70, ALT 47, total bilirubin 0.40, sodium 136, potassium 4.5, chloride 103, serum prealbumin 31.2, hemoglobin A1c 8.9, white blood count 6.0, hemoglobin 13.2, hematocrit 41.3, platelets 181,000. According to the patient, her blood sugars continue to run around 150 each day, and she indicates that she is consuming a well-balanced and nutritious diet. Plan: Patient has been counseled as to the appropriate foot care necessary in diabetic patients. Patient has been strongly urged to seek evaluation by a point of care technician, for the fitting of appropriate footwear. Her current shoes are judged to be likely inadequate, given the reemergence of callus at the site of her previous ulceration overlying the bunion. Furthermore, frequent inspection of the patient's feet, appropriate toenail trimming by professional, etc., have been recommended. Patient has been advised to optimize her glycemic control. Adequate nutrition has been advised. We are to continue the use of collagenase Santyl topically relative to the right calf ulcerationS on a daily basis. Patient is to follow-up in 1 week for reevaluation. Given the recurrent infections of the patient's right lower extremity ulcerations, often with different organisms, we requested consultation with the Infectious Disease service, seeking recommendations as to how to avoid these recurrent infections. The patient has been evaluated by Dr. Busby, infectious disease specialist, and his recommendations have been noted. These include recommendations to stop antibiotics and avoid screening cultures. He is advised to continue with topical care. Recommendation was to repeat the vascular work-up, maintain tight glucose control, and consider the use of a skin graft or skin substitute. The patient is to continue wearing her graduated compression stockings of 20 to 30 mmHg compression on a daily basis. The patient is to continue elevating her legs as much as possible. She is to avoid prolonged idle sitting. The patient has been encouraged to assure adequate nutrition. Optimizing glycemic control has also been advised. Weight loss has also been recommended. She will follow-up in our clinic in 1 week. We are to obtain a noninvasive lower extremity arterial study to reassess the arterial status in the patient's lower extremities. We will also consider the use of a skin substitute, and will query the patient's insurance as to what benefits are available. Influenza vaccine was not administered today. The patient is not a smoker. Patient weighs 265 pounds. She stands 5 feet 4 inches tall. Her BMI is 45.5, which places her in a class III category. Weight loss has been recommended, and collaboration with the patient's primary care physician has been recommended.
[2019-11-12 08:02] VITALS: BP 139/74; PULSE 109; RESP 20; TEMP 36.4; BMI 44.9
--- NOTE | 2019-11-12 08:33 | HP.PCM_ITS ---
(1) Traumatic open wound of lower leg Status: Chronic Current Visit: Yes Qualifiers: Encounter type: subsequent encounter Laterality: right Qualified Code(s): S81.801D - Unspecified open wound, right lower leg, subsequent encounter Code(s): S81.809A - Unspecified open wound, unspecified lower leg, initial encounter (2) Leg swelling Status: Chronic Current Visit: Yes Code(s): M79.89 - Other specified soft tissue disorders (3) Edema of leg Status: Chronic Current Visit: Yes Code(s): R60.0 - Localized edema (4) Diabetes mellitus Status: Chronic Current Visit: Yes Qualifiers: Diabetes mellitus type: type 2 Code(s): E11.9 - Type 2 diabetes mellitus without complications (5) Morbid obesity with BMI of 45.0-49.9, adult Status: Chronic Current Visit: Yes Code(s): E66.01 - Morbid (severe) obesity due to excess calories; Z68.42 - Body mass index (BMI) 45.0-49.9, adult (6) COPD (chronic obstructive pulmonary disease) Status: Chronic Current Visit: No Code(s): J44.9 - Chronic obstructive pulmonary disease, unspecified (7) Coronary artery arteriosclerosis Status: Chronic Current Visit: No Code(s): I25.10 - Atherosclerotic heart disease of [place] coronary artery without angina pectoris (8) Lumbar disc disease with radiculopathy Status: Chronic Current Visit: No Code(s): M51.16 - Intervertebral disc disorders with radiculopathy, lumbar region (9) Chronic wound of extremity Status: Chronic Current Visit: Yes (10) Ulcer of calf due to diabetes mellitus Status: Chronic Current Visit: Yes Code(s): E11.622 - Type 2 diabetes mellitus with other skin ulcer; L97.209 - Non-pressure chronic ulcer of unspecified calf with unspecified severity History of Present Illness Date of Service: 11/12/19 Chief Complaint: Chronic open wound of the right lower extremity secondary to diabetes mellitus, Diabetic right foot wound - [place] Grade 1 History of Wound: This is a 59-year-old diabetic female who has been previously treated in our facility for a traumatic wound on the left lower extremity. She presented this time with wounds in her right lower extremity. There are 2 wounds involving the right calf, which were initially traumatic in origin. They are located on the right anterior tibial surface and on the right lateral calf. These occurred due to impact with a car door in December 2018. It is felt, however, that the failure of the patient's wounds to heal is due to her longstanding diabetes mellitus. The patient has been using Collagenase Santyl topically. She also developed a more recent ulceration on the right foot, located overlying a bunion, which has now subsequently healed. According the patient, this occurred as a result of a new pair of sneakers, which she obtained at a retail establishment. The patient is known to be diabetic, and her blood sugars appear to be reasonably well controlled, based upon the patient's account. The previous wound in the left lower extremity has remained healed. The patient has continued to implement conservative treatment measures previously recommended, including leg elevation, avoidance of idle standing and sitting, active lifestyle, attempts at weight loss, and the use of graduated compression stockings on a daily basis, of 20 to 30 mmHg compression. Past Medical History Past Medical History: Chronic Problems Traumatic open wound of lower leg (Chronic) Leg swelling (Chronic) Edema of leg (Chronic) Diabetes mellitus (Chronic) Morbid obesity with BMI of 45.0-49.9, adult (Chronic) COPD (chronic obstructive pulmonary disease) (Chronic) Coronary artery arteriosclerosis (Chronic) Lumbar disc disease with radiculopathy (Chronic) Chronic wound of extremity (Chronic) Ulcer of calf due to diabetes mellitus (Chronic) Surgical History: - - The patient has a history of coronary artery stent placement. She has undergone open reduction and internal fixation of a left tibia fracture. She underwent right meniscus repair in the past. She is a Ab0. Allergies/Adverse Reactions: Allergies bee venom protein (honey bee) Adverse Reaction (Verified 03/19/19 09:02) Swelling Home Medications: Ambulatory Orders Medication Instructions Recorded Aspirin E.C. [Ecotrin] 81 mg PO DAILY@0800 09/03/13 Hydrocodone/Acetaminophen [Vicodin 1 - 2 tablet PO Q6H PRN PRN 09/03/13 5-300 mg Tablet] Lisinopril 10 mg PO DAILY 09/03/13 Metformin [Metformin HCl] 1,000 mg PO BID 09/03/13 Metoprolol Tartrate 50 mg PO DAILY 09/03/13 Dulaglutide [Trulicity] 0.75 mg SQ 01/02/18 Fluticasone/Vilanterol [Breo 1 each IH 01/02/18 Ellipta 200-25 Mcg INH] Insulin Glargine,Hum.rec.anlog 56 unit BID 01/02/18 [Lantus] Sitagliptin Phosphate [Januvia] 25 mg PO DAILY 01/02/18 Tiotropium [place] [Spiriva] 18 mcg IH 01/02/18 - Family History Paternal - - The patient's father at the age of 78 with history of chronic obstructive pulmonary disease. The patient's mother at the age of 84 with history of chronic obstructive pulmonary disease. Smoking Status: Former smoker Tobacco Use: Non-smoker Review of Systems Constitutional: Denies: Chills, Fever, Weight Change Eyes: Denies: Pain, Vision Change HEENT: Denies: Difficulty Hearing, Difficulty Swallowing, Sinus Congestion Cardiovascular: Denies: Chest Pain, Palpitations Respiratory: Denies: Cough, Shortness of Breath Gastrointestinal: Denies: Diarrhea, Nausea, Vomiting Genitourinary: Denies: Dysuria, Hematuria Endocrine: Denies: Heat/ Cold Intolerance, Polydipsia, Polyuria Hematologic/ Lymphatic: Denies: Easy Bruising, Easy Bleeding - Physical Exam Vital Signs Temp Pulse Resp BP 97.6 F L 109 H 20 H 139/74 H 11/12/19 08:02 11/12/19 08:02 11/12/19 08:02 11/12/19 08:02 General: Alert, Oriented x3, Cooperative, No apparent distress, Well developed, Well nourished HEENT: Atraumatic, PERRLA, EOMI, Normocephalic Oral: Moist Mucosa Neck: No JVD Lungs: Normal air movement Abdomen: Non-Distended, Obese Extremities: No clubbing, No cyanosis, No Calf Tenderness, - - There is no significant swelling or edema in the patient's right lower extremity. The ulcerations on the right lateral calf persists. They are a little changed in size or appearance. Dimensions are documented elsewhere. There is no sign of infection or cellulitis. There is a moderate amount of bioburden. Skin: No rashes Wound Measurements and Assessment WC - Nurse 1 - General Ulcer Measurement Start: 10/29/19 08:06 Freq: Status: Active Protocol: Activity Type Activity Date Activity User E-Sign Co-Sign Detail Recorded Client Recorded Date Recorded By Document 11/12/19 08:02 MARCUS [id number] 11/12/19 08:09 DL 11/12/19 08:02 Wound Center Nurse 1 [Ulcer Assessment] #3 LATERAL RLE -Current Size (cm) - Length 2.2 -Current Size (cm) - Width 2 -Current Size (cm) - Depth 0.2 -Total Square Cm 4.4 -Photo Taken No -Exudate Amt Small -Exudate Type Serous -Wound Margin Distinct, Outline Attached -Granulation Amt Medium (34-66%) -Granulation Quality Red -Necrosis Amt Medium (34-66%) -Necrotic Tissue Type Adherent Slough -Structure Exposed N/A -Texture (Ketty-wound Skin Appearance) Scarring -Moisture (Ketty-wound Skin Appearance Dry/Scaly ) -Color (Ketty-wound Skin Appearance) Erythema,Rubor -Temperature (Ketty-wound Skin No Abnormality Appearance) (Pt Warm) -Tenderness on Palpation (Ketty-wound Yes Skin Appearance) -Anesthetic Used 4% Lidocaine Solution #2 R Vaz -Current Size (cm) - Length 2.4 -Current Size (cm) - Width 3.6 -Current Size (cm) - Depth 0.2 -Total Square Cm 8.64 -Photo Taken No -Exudate Amt Small -Exudate Type Serosanguineous -Wound Margin Distinct, Outline Attached -Granulation Amt Medium (34-66%) -Granulation Quality Red -Necrosis Amt Medium (34-66%) -Necrotic Tissue Type Adherent Slough -Structure Exposed N/A -Texture (Ketty-wound Skin Appearance) Scarring -Moisture (Ketty-wound Skin Appearance Dry/Scaly ) -Color (Ketty-wound Skin Appearance) Erythema,Rubor -Temperature (Ketty-wound Skin No Abnormality Appearance) (Pt Warm) -Tenderness on Palpation (Ketty-wound Yes Skin Appearance) -Ulcer Cleansing Wound Cleanser -Foul Odor after Cleansing No -Anesthetic Used 4% Lidocaine Solution [Edema Assessment] -Right Calf (cm) 40.5 -Right Ankle (cm) 24.5 WC - Nurse 2 - General Ulcer CM Notes Start: 10/29/19 08:06 Freq: Status: Active Protocol: Activity Type Activity Date Activity User E-Sign Co-Sign Detail Recorded Client Recorded Date Recorded By Document 11/12/19 08:25 MARCUS [id number] 11/12/19 08:30 DL 11/12/19 08:25 Wound Center Nurse 2 [Procedure/Treatment] #3 LATERAL RLE -Time 08:25 -Correct Patient Yes -Correct Side, Site, Position Yes -Correct Procedure Yes -Procedure Performed Yes -Type of Procedure Debridement -Clinical Debridement Subcutaneous -Post Debridement Size (cm) - Length 2.1 -Post Debridement Size (cm) - Width 2.2 -Post Debridement Size (cm) - Depth 0.3 -Total Square Cm 4.62 -Wound/Ulcer Outcome Not Healed -Ulcer Cleansing Rinsed/ Irrigated with Saline -Foul Odor after Cleansing No -Bioengineered Tissue No -Bleeding Controlled with Pressure -Offloading No -Treatment Response Procedure Tolerated Well #2 R Vaz -Time 08:25 -Correct Patient Yes -Correct Side, Site, Position Yes -Correct Procedure Yes -Procedure Performed Yes -Type of Procedure Debridement -Clinical Debridement Subcutaneous -Post Debridement Size (cm) - Length 2.5 -Post Debridement Size (cm) - Width 2.6 -Post Debridement Size (cm) - Depth 0.2 -Total Square Cm 6.50 -Wound/Ulcer Outcome Not Healed -Ulcer Cleansing Rinsed/ Irrigated with Saline -Foul Odor after Cleansing No -Bioengineered Tissue No -Bleeding Controlled with Pressure -Offloading No -Treatment Response Procedure Tolerated Well [See Physician Procedure note for Specifics] Pain Scale: 0-10 Numeric [Pain] -Is Patient Pain Free? Yes Musculoskeletal: No Muscle Wasting Neurological: Cranial nerves II-XII grossly intact, Neuro grossly intact Psych/Mental Status: Normal Affect, Appropriate, Alert and oriented to time, place, person, mood and affect Debridement Note Post-Debridement Measurements/Treatment WC - Nurse 2 - General Ulcer CM Notes Start: 10/29/19 08:06 Freq: Status: Active Protocol: Activity Type Activity Date Activity User E-Sign Co-Sign Detail Recorded Client Recorded Date Recorded By Document 11/05/19 08:32 DV [id number] 11/05/19 08:38 DV Document 11/12/19 08:25 DL [id number] 11/12/19 08:30 DL 11/05/19 11/12/19 08:32 08:25 Wound Center Nurse 2 #3 LATERAL RLE -Time 08:32 08:25 -Correct Patient Yes Yes -Correct Side, Site, Position Yes Yes -Correct Procedure Yes Yes -Procedure Performed Yes Yes -Type of Procedure Debridement Debridement -Clinical Debridement Subcutaneous Subcutaneous -Post Debridement Size (cm) - Length 2.5 2.1 -Post Debridement Size (cm) - Width 2.0 2.2 -Post Debridement Size (cm) - Depth 0.2 0.3 -Total Square Cm 5.00 4.62 -Wound/Ulcer Outcome Not Healed Not Healed -Ulcer Cleansing Rinsed/ Rinsed/ Irrigated with Irrigated with Saline Saline -Foul Odor after Cleansing No No -Bioengineered Tissue No No -Bleeding Controlled with Pressure Pressure -Offloading No No -Treatment Response Procedure Procedure Tolerated Well Tolerated Well #2 R Vaz -Time 08:33 08:25 -Correct Patient Yes Yes -Correct Side, Site, Position Yes Yes -Correct Procedure Yes Yes -Procedure Performed Yes Yes -Type of Procedure Debridement Debridement -Clinical Debridement Subcutaneous Subcutaneous -Post Debridement Size (cm) - Length 3.0 2.5 -Post Debridement Size (cm) - Width 3.0 2.6 -Post Debridement Size (cm) - Depth 0.2 0.2 -Total Square Cm 9.00 6.50 -Wound/Ulcer Outcome Not Healed Not Healed -Ulcer Cleansing Rinsed/ Rinsed/ Irrigated with Irrigated with Saline Saline -Foul Odor after Cleansing No No -Bioengineered Tissue No No -Bleeding Controlled with Pressure Pressure -Offloading No No -Treatment Response Procedure Procedure Tolerated Well Tolerated Well Pain Scale: 0-10 Numeric Is Patient Pain Free? Yes Yes Laterality: Right - Lateral calf Type of Debridement: Excisional debridement Anesthesia Used: 5% Lidocaine Gel Depth: Down to and including healthy tissue, in the subcutaneous layer Percentage of wound debrided: 100 Instrument Used: 5mm curette Tissue Removed: Bioburden Severity: Fat Layer Exposed Amount of bleeding with debridement: Mild Bleeding Controlled with: Compression and gauze Patient tolerated procedure well Assessment/Plan Active Problems Traumatic open wound of lower leg (Chronic) Leg swelling (Chronic) Edema of leg (Chronic) Diabetes mellitus (Chronic) Morbid obesity with BMI of 45.0-49.9, adult (Chronic) Chronic wound of extremity (Chronic) Ulcer of calf due to diabetes mellitus (Chronic) Assessment: This is a 59-year-old female who presented with traumatic wounds on the right lower extremity, of several months duration. The ulceration overlying the right bunion remains completely healed. A noninvasive lower extremity arterial study performed about 1 year ago was normal, revealing triphasic waveforms at ankle level bilaterally, normal resting ankle?brachial indices librado aterally, and normal digital-brachial indices bilaterally. The ulcerations on the anterolateral aspect of the right calf have shown little improvement in recent weeks. Cultures were recently obtained, which were positive for Pseudomonas aeruginosa. Based upon culture and sensitivity results, the patient was placed on Levaquin 500 mg daily, which has been completed. An anaerobic cocci was also isolated, and the patient was placed on Flagyl 500 mg p.o. 3 times daily for a total of 10 days, which has been completed. A battery of diagnostic tests have been recently obtained, with results as follows: Glucose 172, BUN 19, creatinine 0.82, total protein 7.0, albumin 3.8, calcium 9.0, AST 32, alkaline phosphatase 70, ALT 47, total bilirubin 0.40, sodium 136, potassium 4.5, chloride 103, serum prealbumin 31.2, hemoglobin A1c 8.9, white blood count 6.0, hemoglobin 13.2, hematocrit 41.3, platelets 181,000. According to the patient, her blood sugars continue to run around 150 each day, and she indicates that she is consuming a well-balanced and nutritious diet. Plan: Patient has been counseled as to the appropriate foot care necessary in diabetic patients. Patient has been strongly urged to seek evaluation by a bulk sealer operator, for the fitting of appropriate footwear. Her current shoes are judged to be likely inadequate, given the reemergence of callus at the site of her previous ulceration overlying the bunion. Furthermore, frequent inspection of the patient's feet, appropriate toenail trimming by professional, etc., have been recommended. Patient has been advised to optimize her glycemic control. Adequate nutrition has been advised. We are to continue the use of collagenase Santyl topically relative to the right calf ulcerations on a daily basis. Patient is to follow-up in 2 weeks for reevaluation. Given the recurrent infections of the patient's right lower extremity ulcerations, often with different organisms, we requested consultation with the Infectious Disease service, seeking recommendations as to how to avoid these recurrent infections. The patient has been evaluated by Dr. Busby, infectious disease specialist, and his recommendations have been noted. These include recommendations to stop antibiotics and avoid screening cultures. He has advised to continue with topical care. Recommendation was to repeat the vascular work-up, maintain tight glucose control, and consider the use of a skin graft or skin substitute. The patient is to continue wearing her graduated compression stockings of 20 to 30 mmHg compression on a daily basis. The patient is to continue elevating her legs as much as possible. She is to avoid prolonged idle sitting. The patient has been encouraged to assure adequate nutrition. Optimizing glycemic control has also been advised. Weight loss has also been recommended. She will follow- up in our clinic in 2 weeks. We are to obtain a noninvasive lower extremity arterial study to reassess the arterial status in the patient's lower extremities. We will also consider the use of a skin substitute, and will query the patient's insurance as to what benefits are available. We also briefly dis cussed the potential role of hyperbaric oxygen therapy, given the recalcitrant nature of the patient's ulcerations, the fact that she is a diabetic, and a history of infections at the site which have required antibiotic treatment. Influenza vaccine was not administered today. The patient is not a smoker. Patient weighs 265 pounds. She stands 5 feet 4 inches tall. Her BMI is 45.5, which places her in a class III category. Weight loss has been recommended, and collaboration with the patient's primary care physician has been recommended.
== END 2019-11-22 23:59 ==
LOC: WC 08:00
PROVIDERS: Family Provider Nurse Practitioner Primary Care; PCP Nurse Practitioner Primary Care; Referring Provider Surgery; Visit Provider Surgery
DX: E11.622 Type 2 diabetes mellitus with other skin ulcer (principal); E11.621 Type 2 diabetes mellitus with foot ulcer; J44.9 Chronic obstructive pulmonary disease, unspecified; R60.0 Localized edema; M79.89 Other specified soft tissue disorders; E66.01 Morbid (severe) obesity due to excess calories; L97.212 Non-pressure chronic ulcer of right calf with fat layer exposed; M51.16 Intervertebral disc disorders with radiculopathy, lumbar region; I25.10 Atherosclerotic heart disease of native coronary artery without angina pectoris; Z68.42 Body mass index [BMI] 45.0-49.9, adult; Z79.4 Long term (current) use of insulin; Z79.82 Long term (current) use of aspirin; Z87.891 Personal history of nicotine dependence; Z95.5 Presence of coronary angioplasty implant and graft; M21.611 Bunion of right foot
CPT/HCPCS: 11042

== ENCOUNTER 2019-11-26 07:57 | Outpatient (RCR) | payer OTHER, SELFPAY ==
[2019-11-23 00:24] VITALS: BP 139/74; PULSE 109; RESP 20; TEMP 36.4
--- NOTE | 2019-11-26 08:01 | ART_ITS ---
Reason For Study: PAD Procedure A bilateral lower extremity continuous wave Doppler with analog waveform analysis,segmental pressures,and ankle brachial indexes without exercise. Left Segmental Pressures Left brachial= 170mmHg. Left calf = 175mmHg. Left posterior tibial artery = 165mmHg. Left dorsalis pedis artery = 161mmHg. Left digit = 98 mmHg. The left dorsalis pedis waveforms are triphasic. The left posterior tibial artery waveforms are triphasic. Right Segmental Pressures Right brachial= 165mmHg. Right thigh = 183mmHg. Right calf = 158mmHg. Right posterior tibial artery = 158mmHg. Right dorsalis pedis artery = 148mmHg. Right digit = 127 mmHg. The right dorsalis pedis waveforms are triphasic. The right posterior tibial artery waveforms are triphasic. Indices The right ankle brachial index by the dorsalis pedis is .87. The right ankle brachial index by the posterior tibial artery is .93. The right digital-brachial index is .75. The left ankle brachial index by the dorsalis pedis is .95. The left ankle brachial index by the posterior tibial artery is .97. The left digital-brachial index is .58. Interpretation Summary Triphasic Doppler waveforms are noted at ankle level bilaterally. Pulse-volume recording waveform amplitudes are diminished at digital level on the left, but satisfactory at all other levels bilaterally. Resting ankle-brachial indices are normal bilaterally. The right digital-brachial index is normal. The left digital-brachial index is mildly diminished. Arterial flow appears normal at ankle level bilaterally, and at digital level on the right. There is evidence of mild, distal, small-vessel arterial occlusive disease at digital level on the left. Ordering Physician: Xavier Acuña Referring Physician: Xavier Acuña Performed By: YOCASTA TAVERAS [facility]
[2019-11-26 08:42] VITALS: TEMP 36.3; BMI 44.9
[2019-11-26 08:50] VITALS: BP 150/81; PULSE 116; RESP 16; TEMP 36.3; BMI 44.9
--- NOTE | 2019-11-26 09:05 | HP.PCM_ITS ---
(1) Traumatic open wound of lower leg Status: Chronic Current Visit: Yes Qualifiers: Encounter type: subsequent encounter Laterality: right Qualified Code(s): S81.801D - Unspecified open wound, right lower leg, subsequent encounter Code(s): S81.809A - Unspecified open wound, unspecified lower leg, initial encounter (2) Leg swelling Status: Chronic Current Visit: Yes Code(s): M79.89 - Other specified soft tissue disorders (3) Edema of leg Status: Chronic Current Visit: Yes Code(s): R60.0 - Localized edema (4) Diabetes mellitus Status: Chronic Current Visit: No Qualifiers: Diabetes mellitus type: type 2 Code(s): E11.9 - Type 2 diabetes mellitus without complications (5) Morbid obesity with BMI of 45.0-49.9, adult Status: Chronic Current Visit: No Code(s): E66.01 - Morbid (severe) obesity due to excess calories; Z68.42 - Body mass index (BMI) 45.0-49.9, adult (6) COPD (chronic obstructive pulmonary disease) Status: Chronic Current Visit: No Code(s): J44.9 - Chronic obstructive pulmonary disease, unspecified (7) Coronary artery arteriosclerosis Status: Chronic Current Visit: No Code(s): I25.10 - Atherosclerotic heart disease of [place] coronary artery without angina pectoris (8) Diabetic foot wound, Hubbard Grade 1 Status: Resolved Current Visit: No (9) Ulcer of foot due to diabetes Status: Resolved Current Visit: No Code(s): E11.621 - Type 2 diabetes mellitus with foot ulcer; L97.509 - Non-pressure chronic ulcer of other part of unspecified foot with unspecified severity (10) Lumbar disc disease with radiculopathy Status: Chronic Current Visit: No Code(s): M51.16 - Intervertebral disc disorders with radiculopathy, lumbar region (11) Chronic wound of extremity Status: Chronic Current Visit: Yes (12) Ulcer of calf due to diabetes mellitus Status: Chronic Current Visit: Yes Code(s): E11.622 - Type 2 diabetes mellitus with other skin ulcer; L97.209 - Non-pressure chronic ulcer of unspecified calf with unspecified severity History of Present Illness Date of Service: 11/26/19 Chief Complaint: Chronic open wound of the right lower extremity secondary to diabetes mellitus, Diabetic right foot wound - Hubbard Grade 1 History of Wound: This is a 59-year-old diabetic female who has been previously treated in our facility for a traumatic wound on the left lower extremity. She presented this time with wounds in her right lower extremity. There are 2 wounds involving the right calf, which were initially traumatic in origin. They are located on the right anterior tibial surface and on the right lateral calf. These occurred due to impact with a car door in December 2018. It is felt, however, that the failure of the patient's wounds to heal is due to her longstanding diabetes mellitus. The patient has been using Collagenase Santyl topically. She also developed a more recent ulceration on the right foot, located overlying a bunion, which has now subsequently healed. According the patient, this occurred as a result of a new pair of sneakers, which she obtained at a retail establishment. The patient is known to be diabetic, and her blood sugars appear to be reasonably well controlled, based upon the patient's account. The previous wound in the left lower extremity has remained healed. The patient has continued to implement conservative treatment measures previously recommended, including leg elevation, avoidance of idle standing and sitting, active lifestyle, attempts at weight loss, and the use of graduated compression stockings on a daily basis, of 20 to 30 mmHg compression. Past Medical History Past Medical History: Chronic Problems Traumatic open wound of lower leg (Chronic) Leg swelling (Chronic) Edema of leg (Chronic) Diabetes mellitus (Chronic) Morbid obesity with BMI of 45.0-49.9, adult (Chronic) COPD (chronic obstructive pulmonary disease) (Chronic) Coronary artery arteriosclerosis (Chronic) Lumbar disc disease with radiculopathy (Chronic) Chronic wound of extremity (Chronic) Ulcer of calf due to diabetes mellitus (Chronic) Surgical History: - - The patient has a history of coronary artery stent placement. She has undergone open reduction and internal fixation of a left tibia fracture. She underwent right meniscus repair in the past. She is a Ab0. Allergies/Adverse Reactions: Allergies bee venom protein (honey bee) Adverse Reaction (Verified 03/19/19 09:02) Swelling Home Medications: Ambulatory Orders Medication Instructions Recorded Aspirin E.C. [Ecotrin] 81 mg PO DAILY@0800 09/03/13 Hydrocodone/Acetaminophen [Vicodin 1 - 2 tablet PO Q6H PRN PRN 09/03/13 5-300 mg Tablet] Lisinopril 10 mg PO DAILY 09/03/13 Metformin [Metformin HCl] 1,000 mg PO BID 09/03/13 Metoprolol Tartrate 50 mg PO DAILY 09/03/13 Dulaglutide [Trulicity] 0.75 mg SQ 01/02/18 Fluticasone/Vilanterol [Breo 1 each IH 01/02/18 Ellipta 200-25 Mcg INH] Insulin Glargine,Hum.rec.anlog 56 unit BID 01/02/18 [Lantus] Sitagliptin Phosphate [Januvia] 25 mg PO DAILY 01/02/18 Tiotropium [place] [Spiriva] 18 mcg IH 01/02/18 - Family History Paternal - - The patient's father at the age of 78 with history of chronic obstructive pulmonary disease. The patient's mother at the age of 84 with history of chronic obstructive pulmonary disease. Smoking Status: Former smoker Tobacco Use: Non-smoker Review of Systems Constitutional: Denies: Chills, Fever, Weight Change Eyes: Denies: Pain, Vision Change HEENT: Denies: Difficulty Hearing, Difficulty Swallowing, Sinus Congestion Cardiovascular: Denies: Chest Pain, Palpitations Respiratory: Denies: Cough, Shortness of Breath Gastrointestinal: Denies: Diarrhea, Nausea, Vomiting Genitourinary: Denies: Dysuria, Hematuria Endocrine: Denies: Heat/ Cold Intolerance, Polydipsia, Polyuria Hematologic/ Lymphatic: Denies: Easy Bruising, Easy Bleeding - Physical Exam Vital Signs Temp Pulse Resp BP 97.4 F L 116 H 16 150/81 H 11/26/19 08:50 11/26/19 08:50 11/26/19 08:50 11/26/19 08:50 General: Alert, Oriented x3, Cooperative, No apparent distress, Well developed, Well nourished HEENT: Atraumatic, PERRLA, EOMI, Normocephalic Oral: Moist Mucosa Neck: No JVD Lungs: Normal air movement Abdomen: Non-Distended, Obese Extremities: No clubbing, No cyanosis, No Calf Tenderness, - - There is no significant swelling or edema in the patient's lower extremities. The ulcerations on the right lower extremity persists. They are tandem. The inferior of the 2 ulcerations is superficial. The more superior ulceration has slight depth. There is no sign of infection or cellulitis. Both ulcerations demonstrate a moderate amount of bioburden and nonviable tissue. Dimensions are documented elsewhere. Skin: No rashes Wound Measurements and Assessment WC - Nurse 1 - General Ulcer Measurement Start: 11/26/19 08:41 Freq: Status: Active Protocol: Activity Type Activity Date Activity User E-Sign Co-Sign Detail Recorded Client Recorded Date Recorded By Document 11/26/19 08:42 [facility] [id number] 11/26/19 08:50 [facility] 11/26/19 08:42 Wound Center Nurse 1 [Ulcer Assessment] #3 LATERAL RLE -Combined with other wound No -Current Size (cm) - Length 2.1 -Current Size (cm) - Width 2 -Current Size (cm) - Depth 0.3 -Total Square Cm 4.2 -Photo Taken No -Epithelialization None Present -Tunneling No -Undermining/Tunneling No -Circular Undermining No -Exudate Amt Small -Exudate Type Serosanguineous -Wound Margin Distinct, Outline Attached -Granulation Amt Large (67-100%) -Granulation Quality Red -Slough/Fibrin Yes -Necrosis Amt Small (1-33%) -Necrotic Tissue Type Adherent Slough -Texture (Ketty-wound Skin Appearance) Assessed, Scarring -Moisture (Ketty-wound Skin Appearance Assessed ) -Color (Ketty-wound Skin Appearance) Assessed, Erythema -Temperature (Ketty-wound Skin No Abnormality Appearance) (Pt Warm) -Tenderness on Palpation (Ketty-wound No Skin Appearance) -Ulcer Cleansing Rinsed/ Irrigated with Saline -Foul Odor after Cleansing No -Anesthetic Used 5% Lidocaine Gel #2 R Vaz -Combined with other wound No -Current Size (cm) - Length 2.9 -Current Size (cm) - Width 2.6 -Current Size (cm) - Depth 0.2 -Total Square Cm 7.54 -Photo Taken No -Epithelialization None Present -Tunneling No -Undermining/Tunneling No -Circular Undermining No -Exudate Amt Small -Exudate Type Serosanguineous -Wound Margin Distinct, Outline Attached -Granulation Amt Large (67-100%) -Granulation Quality Red -Slough/Fibrin Yes -Necrosis Amt Small (1-33%) -Necrotic Tissue Type Adherent Slough -Texture (Ketty-wound Skin Appearance) Assessed, Scarring -Moisture (Ketty-wound Skin Appearance Assessed ) -Color (Ketty-wound Skin Appearance) Assessed, Erythema -Temperature (Ketty-wound Skin No Abnormality Appearance) (Pt Warm) -Tenderness on Palpation (Ketty-wound No Skin Appearance) -Ulcer Cleansing Rinsed/ Irrigated with Saline -Foul Odor after Cleansing No -Anesthetic Used 5% Lidocaine Gel [Edema Assessment] -Lower Limb Edema Present Yes -Right Calf (cm) 41.3 -Right Ankle (cm) 23.5 WC - Nurse 2 - General Ulcer CM Notes Start: 11/26/19 08:41 Freq: Status: Active Protocol: Activity Type Activity Date Activity User E-Sign Co-Sign Detail Recorded Client Recorded Date Recorded By Document 11/26/19 08:55 [address] [id number] 11/26/19 09:[address] 11/26/19 08:55 Wound Center Nurse 2 [Procedure/Treatment] #3 LATERAL RLE -Time 08:55 -Correct Patient Yes -Correct Side, Site, Position Yes -Correct Procedure Yes -Procedure Performed Yes -Type of Procedure Debridement -Clinical Debridement Subcutaneous -Post Debridement Size (cm) - Length 2.0 -Post Debridement Size (cm) - Width 2.0 -Post Debridement Size (cm) - Depth 0.2 -Total Square (cm) 4.00 -Wound/Ulcer Outcome Not Healed -Ulcer Cleansing Rinsed/ Irrigated with Saline -Foul Odor after Cleansing No -Bleeding Controlled with Pressure -Treatment Response Procedure Tolerated Well #2 R Vaz -Time 08:55 -Correct Patient Yes -Correct Side, Site, Position Yes -Correct Procedure Yes -Procedure Performed Yes -Type of Procedure Debridement -Clinical Debridement Subcutaneous -Post Debridement Size (cm) - Length 3 -Post Debridement Size (cm) - Width 3.2 -Post Debridement Size (cm) - Depth 0.2 -Total Square (cm) 9.6 -Wound/Ulcer Outcome Not Healed -Ulcer Cleansing Rinsed/ Irrigated with Saline -Foul Odor after Cleansing No -Bleeding Controlled with Pressure -Treatment Response Procedure Tolerated Well [See Physician Procedure note for Specifics] Pain Scale: 0-10 Numeric [Pain] -Is Patient Pain Free? Yes Musculoskeletal: No Muscle Wasting Neurological: Cranial nerves II-XII grossly intact, Neuro grossly intact Psych/Mental Status: Normal Affect, Appropriate, Alert and oriented to time, place, person, mood and affect Debridement Note Post-Debridement Measurements/Treatment - Nurse 2 - General Ulcer CM Notes Start: 11/26/19 08:41 Freq: Status: Active Protocol: Activity Type Activity Date Activity User E-Sign Co-Sign Detail Recorded Client Recorded Date Recorded By Document 11/26/19 08:55 PL [id number] 11/26/19 09:02 PL 11/26/19 08:55 Wound Center Nurse 2 #3 LATERAL RLE -Time 08:55 -Correct Patient Yes -Correct Side, Site, Position Yes -Correct Procedure Yes -Procedure Performed Yes -Type of Procedure Debridement -Clinical Debridement Subcutaneous -Post Debridement Size (cm) - Length 2.0 -Post Debridement Size (cm) - Width 2.0 -Post Debridement Size (cm) - Depth 0.2 -Total Square (cm) 4.00 -Wound/Ulcer Outcome Not Healed -Ulcer Cleansing Rinsed/ Irrigated with Saline -Foul Odor after Cleansing No -Bleeding Controlled with Pressure -Treatment Response Procedure Tolerated Well #2 R Vaz -Time 08:55 -Correct Patient Yes -Correct Side, Site, Position Yes -Correct Procedure Yes -Procedure Performed Yes -Type of Procedure Debridement -Clinical Debridement Subcutaneous -Post Debridement Size (cm) - Length 3 -Post Debridement Size (cm) - Width 3.2 -Post Debridement Size (cm) - Depth 0.2 -Total Square (cm) 9.6 -Wound/Ulcer Outcome Not Healed -Ulcer Cleansing Rinsed/ Irrigated with Saline -Foul Odor after Cleansing No -Bleeding Controlled with Pressure -Treatment Response Procedure Tolerated Well Pain Scale: 0-10 Numeric Is Patient Pain Free? Yes Laterality: Right - Lateral calf Type of Debridement: Excisional debridement Anesthesia Used: 5% Lidocaine Gel Depth: Down to and including healthy tissue, in the subcutaneous layer Percentage of wound debrided: 100 Instrument Used: 5mm curette Tissue Removed: Bioburden and nonviable tissue Severity: Fat Layer Exposed Amount of bleeding with debridement: Mild Bleeding Controlled with: Compression and gauze Patient tolerated procedure well Assessment/Plan Active Problems Traumatic open wound of lower leg (Chronic) Leg swelling (Chronic) Edema of leg (Chronic) Chronic wound of extremity (Chronic) Ulcer of calf due to diabetes mellitus (Chronic) Assessment: This is a 59-year-old female who presented with traumatic wounds on the right lower extremity, of several months duration. The ulceration overlying the right bunion remains completely healed. A noninvasive lower extremity arterial study performed this morning reveals normal ankle-brachial index on the right, and a normal digital brachial index on the right as well. The ulcerations on the anterolateral aspect of the right calf have shown slight improvement in recent weeks. Cultures were recently obtained, which were positive for Pseudomonas aeruginosa. Based upon culture and sensitivity results, the patient was placed on Levaquin 500 mg daily, which has been completed. An anaerobic cocci was also isolated, and the patient was placed on Flagyl 500 mg p.o. 3 times daily for a total of 10 days, which has been completed. A battery of diagnostic tests have been recently obtained, with results as follows: Glucose 172, BUN 19, creatinine 0.82, total protein 7.0, albumin 3.8, calcium 9.0, AST 32, alkaline phosphatase 70, ALT 47, total bilirubin 0.40, sodium 136, potassium 4.5, chloride 103, serum prealbumin 31.2, hemoglobin A1c 8.9, white blood count 6.0, hemoglobin 13.2, hematocrit 41.3, platelets 181,000. According to the patient, her blood sugars continue to run around 150 each day, and she indicates that she is consuming a well-balanced and nutritious diet. Plan: Patient has been counseled as to the appropriate foot care necessary in diabetic patients. Patient has been strongly urged to seek evaluation by a patternmaker apprentice wood, for the fitting of appropriate footwear. Furthermore, frequent inspection of the patient's feet, appropriate toenail trimming by professional, etc., have been recommended. Patient has been advised to optimize her glycemic control. Adequate nutrition has been advised. We are to continue the use of collagenase Santyl topically relative to the right calf ulcerations on a daily basis. We are to seek preauthorization for the use of a skin substitute, such as EpiFix. Patient is to follow-up in 2 weeks for reevaluation. Given the recurrent infections of the patient's right lower extremity ulcerations, often with different organisms, we requested consultation with the Infectious Disease service, seeking recommendations as to how to avoid these recurrent infections. The patient has been evaluated by Dr. Busby, infectious disease specialist, and his recommendations have been noted. These include recommendations to stop antibiotics and avoid screening cultures. He has advised to continue with topical care, and consider the use of a skin substitute. The patient is to continue wearing her graduated compression stockings of 20 to 30 mmHg compression on a daily basis. The patient is to continue elevating her legs as much as possible. She is to avoid prolonged idle sitting. The patient has been encouraged to assure adequate nutrition. Optimizing glycemic control has also been advised. Weight loss has also been recommended. She will follow-up in our clinic in 2 weeks. We will also consider the use of a skin substitute, and will query the patient's insurance as to what benefits are available. We have previously discussed the potential role of hyperbaric oxygen therapy, given the recalcitrant nature of the patient's ulcerations, the fact that she is a diabetic, and a history of infections at the site which have required antibiotic treatment. Influenza vaccine was not administered today. The patient is not a smoker. Patient weighs 265 pounds. She stands 5 feet 4 inches tall. Her BMI is 45.5, which places her in a class III category. Weight loss has been recommended, and collaboration with the patient's primary care physician has been recommended.
--- NOTE | 2019-11-26 12:44 | PCM.WC.HP ---
(1) Traumatic open wound of lower leg Status: Chronic Current Visit: Yes Qualifiers: Encounter type: subsequent encounter Laterality: right Qualified Code(s): S81.801D - Unspecified open wound, right lower leg, subsequent encounter Code(s): S81.809A - Unspecified open wound, unspecified lower leg, initial encounter (2) Leg swelling Status: Chronic Current Visit: Yes Code(s): M79.89 - Other specified soft tissue disorders (3) Edema of leg Status: Chronic Current Visit: Yes Code(s): R60.0 - Localized edema (4) Diabetes mellitus Status: Chronic Current Visit: No Qualifiers: Diabetes mellitus type: type 2 Code(s): E11.9 - Type 2 diabetes mellitus without complications (5) Morbid obesity with BMI of 45.0-49.9, adult Status: Chronic Current Visit: No Code(s): E66.01 - Morbid (severe) obesity due to excess calories; Z68.42 - Body mass index (BMI) 45.0-49.9, adult (6) COPD (chronic obstructive pulmonary disease) Status: Chronic Current Visit: No Code(s): J44.9 - Chronic obstructive pulmonary disease, unspecified (7) Coronary artery arteriosclerosis Status: Chronic Current Visit: No Code(s): I25.10 - Atherosclerotic heart disease of [place] coronary artery without angina pectoris (8) Lumbar disc disease with radiculopathy Status: Chronic Current Visit: No Code(s): M51.16 - Intervertebral disc disorders with radiculopathy, lumbar region (9) Chronic wound of extremity Status: Chronic Current Visit: Yes (10) Ulcer of calf due to diabetes mellitus Status: Chronic Current Visit: Yes Code(s): E11.622 - Type 2 diabetes mellitus with other skin ulcer; L97.209 - Non-pressure chronic ulcer of unspecified calf with unspecified severity (11) Non-pressure chronic ulcer of right calf with fat layer exposed Status: Chronic Current Visit: Yes Code(s): L97.212 - Non-pressure chronic ulcer of right calf with fat layer exposed History of Present Illness Date of Service: 11/26/19 Chief Complaint: Chronic open wound of the right lower extremity secondary to diabetes mellitus, Diabetic right foot wound - [place] Grade 1 History of Wound: This is a 59-year-old diabetic female who has been previously treated in our facility for a traumatic wound on the left lower extremity. She presented this time with wounds in her right lower extremity. There are 2 wounds involving the right calf, which were initially traumatic in origin. They are located on the right anterior tibial surface and on the right lateral calf. These occurred due to impact with a car door in December 2018. It is felt, however, that the failure of the patient's wounds to heal is due to her longstanding diabetes mellitus. The patient has been using Collagenase Santyl topically. She also developed a more recent ulceration on the right foot, located overlying a bunion, which has now subsequently healed. According the patient, this occurred as a result of a new pair of sneakers, which she obtained at a retail establishment. The patient is known to be diabetic, and her blood sugars appear to be reasonably well controlled, based upon the patient's account. The previous wound in the left lower extremity has remained healed. The patient has continued to implement conservative treatment measures previously recommended, including leg elevation, avoidance of idle standing and sitting, active lifestyle, attempts at weight loss, and the use of graduated compression stockings on a daily basis, of 20 to 30 mmHg compression. Past Medical History Past Medical History: Chronic Problems Traumatic open wound of lower leg (Chronic) Leg swelling (Chronic) Edema of leg (Chronic) Diabetes mellitus (Chronic) Morbid obesity with BMI of 45.0-49.9, adult (Chronic) COPD (chronic obstructive pulmonary disease) (Chronic) Coronary artery arteriosclerosis (Chronic) Lumbar disc disease with radiculopathy (Chronic) Chronic wound of extremity (Chronic) Ulcer of calf due to diabetes mellitus (Chronic) Non-pressure chronic ulcer of right calf with fat layer exposed (Chronic) Surgical History: - - The patient has a history of coronary artery stent placement. She has undergone open reduction and internal fixation of a left tibia fracture. She underwent right meniscus repair in the past. She is a Ab0. Allergies/Adverse Reactions: Allergies bee venom protein (honey bee) Adverse Reaction (Verified 03/19/19 09:02) Swelling Home Medications: Ambulatory Orders Medication Instructions Recorded Aspirin E.C. [Ecotrin] 81 mg PO DAILY@0800 09/03/13 Hydrocodone/Acetaminophen [Vicodin 1 - 2 tablet PO Q6H PRN PRN 09/03/13 5-300 mg Tablet] Lisinopril 10 mg PO DAILY 09/03/13 Metformin [Metformin HCl] 1,000 mg PO BID 09/03/13 Metoprolol Tartrate 50 mg PO DAILY 09/03/13 Dulaglutide [Trulicity] 0.75 mg SQ 01/02/18 Fluticasone/Vilanterol [Breo 1 each IH 01/02/18 Ellipta 200-25 Mcg INH] Insulin Glargine,Hum.rec.anlog 56 unit BID 01/02/18 [Lantus] Sitagliptin Phosphate [Januvia] 25 mg PO DAILY 01/02/18 Tiotropium [place] [Spiriva] 18 mcg IH 01/02/18 - Family History Paternal - - The patient's father at the age of 78 with history of chronic obstructive pulmonary disease. The patient's mother at the age of 84 with history of chronic obstructive pulmonary disease. Smoking Status: Former smoker Tobacco Use: Non-smoker - Physical Exam Vital Signs Temp Pulse Resp BP 97.4 F L 116 H 16 150/81 H 11/26/19 08:50 11/26/19 08:50 11/26/19 08:50 11/26/19 08:50 Wound Measurements and Assessment WC - Nurse 1 - General Ulcer Measurement Start: 11/26/19 08:41 Freq: Status: Active Protocol: Activity Type Activity Date Activity User E-Sign Co-Sign Detail Recorded Client Recorded Date Recorded By Document 11/26/19 08:42 [facility] [id number] 11/26/19 08:50 [facility] 11/26/19 08:42 Wound Center Nurse 1 [Ulcer Assessment] #3 LATERAL RLE -Combined with other wound No -Current Size (cm) - Length 2.1 -Current Size (cm) - Width 2 -Current Size (cm) - Depth 0.3 -Total Square Cm 4.2 -Photo Taken No -Epithelialization None Present -Tunneling No -Undermining/Tunneling No -Circular Undermining No -Exudate Amt Small -Exudate Type Serosanguineous -Wound Margin Distinct, Outline Attached -Granulation Amt Large (67-100%) -Granulation Quality Red -Slough/Fibrin Yes -Necrosis Amt Small (1-33%) -Necrotic Tissue Type Adherent Slough -Texture (Ketty-wound Skin Appearance) Assessed, Scarring -Moisture (Ketty-wound Skin Appearance Assessed ) -Color (Ketty-wound Skin Appearance) Assessed, Erythema -Temperature (Ketty-wound Skin No Abnormality Appearance) (Pt Warm) -Tenderness on Palpation (Ketty-wound No Skin Appearance) -Ulcer Cleansing Rinsed/ Irrigated with Saline -Foul Odor after Cleansing No -Anesthetic Used 5% Lidocaine Gel #2 R Vaz -Combined with other wound No -Current Size (cm) - Length 2.9 -Current Size (cm) - Width 2.6 -Current Size (cm) - Depth 0.2 -Total Square Cm 7.54 -Photo Taken No -Epithelialization None Present -Tunneling No -Undermining/Tunneling No -Circular Undermining No -Exudate Amt Small -Exudate Type Serosanguineous -Wound Margin Distinct, Outline Attached -Granulation Amt Large (67-100%) -Granulation Quality Red -Slough/Fibrin Yes -Necrosis Amt Small (1-33%) -Necrotic Tissue Type Adherent Slough -Texture (Ketty-wound Skin Appearance) Assessed, Scarring -Moisture (Ketty-wound Skin Appearance Assessed ) -Color (Ketty-wound Skin Appearance) Assessed, Erythema -Temperature (Ketty-wound Skin No Abnormality Appearance) (Pt Warm) -Tenderness on Palpation (Ketty-wound No Skin Appearance) -Ulcer Cleansing Rinsed/ Irrigated with Saline -Foul Odor after Cleansing No -Anesthetic Used 5% Lidocaine Gel [Edema Assessment] -Lower Limb Edema Present Yes -Right Calf (cm) 41.3 -Right Ankle (cm) 23.5 WC - Nurse 2 - General Ulcer CM Notes Start: 11/26/19 08:41 Freq: Status: Active Protocol: Activity Type Activity Date Activity User E-Sign Co-Sign Detail Recorded Client Recorded Date Recorded By Document 11/26/19 08:55 PATSY [id number] 11/26/19 09:02 PATSY 11/26/19 08:55 Wound Center Nurse 2 [Procedure/Treatment] #3 LATERAL RLE -Time 08:55 -Correct Patient Yes -Correct Side, Site, Position Yes -Correct Procedure Yes -Procedure Performed Yes -Type of Procedure Debridement -Clinical Debridement Subcutaneous -Post Debridement Size (cm) - Length 2.0 -Post Debridement Size (cm) - Width 2.0 -Post Debridement Size (cm) - Depth 0.2 -Total Square (cm) 4.00 -Wound/Ulcer Outcome Not Healed -Ulcer Cleansing Rinsed/ Irrigated with Saline -Foul Odor after Cleansing No -Bleeding Controlled with Pressure -Treatment Response Procedure Tolerated Well #2 R Vaz -Time 08:55 -Correct Patient Yes -Correct Side, Site, Position Yes -Correct Procedure Yes -Procedure Performed Yes -Type of Procedure Debridement -Clinical Debridement Subcutaneous -Post Debridement Size (cm) - Length 3 -Post Debridement Size (cm) - Width 3.2 -Post Debridement Size (cm) - Depth 0.2 -Total Square (cm) 9.6 -Wound/Ulcer Outcome Not Healed -Ulcer Cleansing Rinsed/ Irrigated with Saline -Foul Odor after Cleansing No -Bleeding Controlled with Pressure -Treatment Response Procedure Tolerated Well [See Physician Procedure note for Specifics] Pain Scale: 0-10 Numeric [Pain] -Is Patient Pain Free? Yes Debridement Note Post-Debridement Measurements/Treatment WC - Nurse 2 - General Ulcer CM Notes Start: 11/26/19 08:41 Freq: Status: Active Protocol: Activity Type Activity Date Activity User E-Sign Co-Sign Detail Recorded Client Recorded Date Recorded By Document 11/26/19 08:55 PL [id number] 11/26/19 09:02 PL 11/26/19 08:55 Wound Center Nurse 2 #3 LATERAL RLE -Time 08:55 -Correct Patient Yes -Correct Side, Site, Position Yes -Correct Procedure Yes -Procedure Performed Yes -Type of Procedure Debridement -Clinical Debridement Subcutaneous -Post Debridement Size (cm) - Length 2.0 -Post Debridement Size (cm) - Width 2.0 -Post Debridement Size (cm) - Depth 0.2 -Total Square (cm) 4.00 -Wound/Ulcer Outcome Not Healed -Ulcer Cleansing Rinsed/ Irrigated with Saline -Foul Odor after Cleansing No -Bleeding Controlled with Pressure -Treatment Response Procedure Tolerated Well #2 R Vaz -Time 08:55 -Correct Patient Yes -Correct Side, Site, Position Yes -Correct Procedure Yes -Procedure Performed Yes -Type of Procedure Debridement -Clinical Debridement Subcutaneous -Post Debridement Size (cm) - Length 3 -Post Debridement Size (cm) - Width 3.2 -Post Debridement Size (cm) - Depth 0.2 -Total Square (cm) 9.6 -Wound/Ulcer Outcome Not Healed -Ulcer Cleansing Rinsed/ Irrigated with Saline -Foul Odor after Cleansing No -Bleeding Controlled with Pressure -Treatment Response Procedure Tolerated Well Pain Scale: 0-10 Numeric Is Patient Pain Free? Yes Assessment/Plan Active Problems Traumatic open wound of lower leg (Chronic) Leg swelling (Chronic) Edema of leg (Chronic) Chronic wound of extremity (Chronic) Ulcer of calf due to diabetes mellitus (Chronic) Non-pressure chronic ulcer of right calf with fat layer exposed (Chronic) Assessment: This is a 59-year-old female who presented with traumatic wounds on the right lower extremity, of several months duration. The ulceration overlying the right bunion remains completely healed. A noninvasive lower extremity arterial study performed this morning reveals normal ankle-brachial index on the right, and a normal digital brachial index on the right as well. The ulcerations on the anterolateral aspect of the right calf have shown slight improvement in recent weeks. Cultures were recently obtained, which were positive for Pseudomonas aeruginosa. Based upon culture and sensitivity results, the patient was placed on Levaquin 500 mg daily, which has been completed. An anaerobic cocci was also isolated, and the patient was placed on Flagyl 500 mg p.o. 3 times daily for a total of 10 days, which has been completed. A battery of diagnostic tests have been recently obtained, with results as follows: Glucose 172, BUN 19, creatinine 0.82, total protein 7.0, albumin 3.8, calcium 9.0, AST 32, alkaline phosphatase 70, ALT 47, total bilirubin 0.40, sodium 136, potassium 4.5, chloride 103, serum prealbumin 31.2, hemoglobin A1c 8.9, white blood count 6.0, hemoglobin 13.2, hematocrit 41.3, platelets 181,000. According to the patient, her blood sugars continue to run around 150 each day, and she indicates that she is consuming a well-balanced and nutritious diet. Plan: Patient has been counseled as to the appropriate foot care necessary in diabetic patients. Patient has been strongly urged to seek evaluation by a staff certified nurse midwife, for the fitting of appropriate footwear. Furthermore, frequent inspection of the patient's feet, appropriate toenail trimming by professional, etc., have been recommended. Patient has been advised to optimize her glycemic control. Adequate nutrition has been advised. We are to continue the use of collagenase Santyl topically relative to the right calf ulcerations on a daily basis. We are to seek preauthorization for the use of a skin substitute, such as EpiFix. Patient is to follow-up in 2 weeks for reevaluation. Given the recurrent infections of the patient's right lower extremity ulcerations, often with different organisms, we requested consultation with the Infectious Disease service, seeking recommendations as to how to avoid these recurrent infections. The patient has been evaluated by Dr. Busby, infectious disease specialist, and his recommendations have been noted. These include recommendations to stop antibiotics and avoid screening cultures. He has advised to continue with topical care, and consider the use of a skin substitute. The patient is to continue wearing her graduated compression stockings of 20 to 30 mmHg compression on a daily basis. The patient is to continue elevating her legs as much as possible. She is to avoid prolonged idle sitting. The patient has been encouraged to assure adequate nutrition. Optimizing glycemic control has also been advised. Weight loss has also been recommended. She will follow-up in our clinic in 2 weeks. We will also consider the use of a skin substitute, and will query the patient's insurance as to what benefits are available. We have previously discussed the potential role of hyperbaric oxygen therapy, given the recalcitrant nature of the patient's ulcerations, the fact that she is a diabetic, and a history of infections at the site which have required antibiotic treatment. Influenza vaccine was not administered today. The patient is not a smoker. Patient weighs 265 pounds. She stands 5 feet 4 inches tall. Her BMI is 45.5, which places her in a class III category. Weight loss has been recommended, and collaboration with the patient's primary care physician has been recommended.
== END 2019-12-23 23:59 ==
LOC: CVS 07:57
PROVIDERS: Family Provider Nurse Practitioner Primary Care; PCP Nurse Practitioner Primary Care; Referring Provider Surgery; Visit Provider Surgery
DX: E11.51 Type 2 diabetes mellitus with diabetic peripheral angiopathy without gangrene (principal); R60.0 Localized edema; M79.89 Other specified soft tissue disorders; E66.01 Morbid (severe) obesity due to excess calories; Z68.42 Body mass index [BMI] 45.0-49.9, adult; J44.9 Chronic obstructive pulmonary disease, unspecified; I25.10 Atherosclerotic heart disease of native coronary artery without angina pectoris; E11.621 Type 2 diabetes mellitus with foot ulcer; M51.16 Intervertebral disc disorders with radiculopathy, lumbar region; L97.212 Non-pressure chronic ulcer of right calf with fat layer exposed; Z87.891 Personal history of nicotine dependence
CPT/HCPCS: 11042; 93923

== ENCOUNTER 2019-12-17 08:00 | Outpatient (RCR) | payer OTHER, SELFPAY ==
[2019-12-10 08:17] VITALS: BP 123/61; PULSE 88; RESP 18; TEMP 37.1; BMI 44.9
--- NOTE | 2019-12-10 08:50 | HP.PCM_ITS ---
(1) Traumatic open wound of lower leg Status: Chronic Current Visit: Yes Qualifiers: Encounter type: subsequent encounter Laterality: right Qualified Code(s): S81.801D - Unspecified open wound, right lower leg, subsequent encounter Code(s): S81.809A - Unspecified open wound, unspecified lower leg, initial encounter (2) Leg swelling Status: Chronic Current Visit: Yes Code(s): M79.89 - Other specified soft tissue disorders (3) Edema of leg Status: Chronic Current Visit: Yes Code(s): R60.0 - Localized edema (4) Diabetes mellitus Status: Chronic Current Visit: Yes Qualifiers: Diabetes mellitus type: type 2 Code(s): E11.9 - Type 2 diabetes mellitus without complications (5) Morbid obesity with BMI of 45.0-49.9, adult Status: Chronic Current Visit: No Code(s): E66.01 - Morbid (severe) obesity due to excess calories; Z68.42 - Body mass index (BMI) 45.0-49.9, adult (6) COPD (chronic obstructive pulmonary disease) Status: Chronic Current Visit: No Code(s): J44.9 - Chronic obstructive pulmonary disease, unspecified (7) Coronary artery arteriosclerosis Status: Chronic Current Visit: No Code(s): I25.10 - Atherosclerotic heart disease of [place] coronary artery without angina pectoris (8) Diabetic foot wound, [place] Grade 1 Status: Resolved Current Visit: No (9) Ulcer of foot due to diabetes Status: Resolved Current Visit: No Code(s): E11.621 - Type 2 diabetes mellitus with foot ulcer; L97.509 - Non-pressure chronic ulcer of other part of unspecified foot with unspecified severity (10) Lumbar disc disease with radiculopathy Status: Chronic Current Visit: No Code(s): M51.16 - Intervertebral disc disorders with radiculopathy, lumbar region (11) Chronic wound of extremity Status: Chronic Current Visit: Yes (12) Ulcer of calf due to diabetes mellitus Status: Chronic Current Visit: Yes Code(s): E11.622 - Type 2 diabetes mellitus with other skin ulcer; L97.209 - Non-pressure chronic ulcer of unspecified calf with unspecified severity (13) Non-pressure chronic ulcer of right calf with fat layer exposed Status: Chronic Current Visit: Yes Code(s): L97.212 - Non-pressure chronic ulcer of right calf with fat layer exposed History of Present Illness Date of Service: 12/10/19 Chief Complaint: Chronic open wound of the right lower extremity secondary to diabetes mellitus, Diabetic right foot wound - Hubbard Grade 1 History of Wound: This is a 59-year-old diabetic female who has been previously treated in our facility for a traumatic wound on the left lower extremity. She presented this time with wounds in her right lower extremity. There are 2 wounds involving the right calf, which were initially traumatic in origin. They are located on the right anterior tibial surface and on the right lateral calf. These occurred due to impact with a car door in December 2018. It is felt, however, that the failure of the patient's wounds to heal is due to her longstanding diabetes mellitus. The patient has been using Collagenase Santyl topically. She also developed a more recent ulceration on the right foot, located overlying a bunion, which has now subsequently healed. According the patient, this occurred as a result of a new pair of sneakers, which she obtained at a retail establishment. The patient is known to be diabetic, and her blood sugars appear to be reasonably well controlled, based upon the patient's account. The previous wound in the left lower extremity has remained healed. The patient has continued to implement conservative treatment measures previously recommended, including leg elevation, avoidance of idle standing and sitting, active lifestyle, attempts at weight loss, and the use of graduated compression stockings on a daily basis, of 20 to 30 mmHg compression. Past Medical History Past Medical History: Chronic Problems Traumatic open wound of lower leg (Chronic) Leg swelling (Chronic) Edema of leg (Chronic) Diabetes mellitus (Chronic) Morbid obesity with BMI of 45.0-49.9, adult (Chronic) COPD (chronic obstructive pulmonary disease) (Chronic) Coronary artery arteriosclerosis (Chronic) Lumbar disc disease with radiculopathy (Chronic) Chronic wound of extremity (Chronic) Ulcer of calf due to diabetes mellitus (Chronic) Non-pressure chronic ulcer of right calf with fat layer exposed (Chronic) Surgical History: - - The patient has a history of coronary artery stent placement. She has undergone open reduction and internal fixation of a left tibia fracture. She underwent right meniscus repair in the past. She is a Ab0. Allergies/Adverse Reactions: Allergies bee venom protein (honey bee) Adverse Reaction (Verified 03/19/19 09:02) Swelling Home Medications: Ambulatory Orders Medication Instructions Recorded Aspirin E.C. [Ecotrin] 81 mg PO DAILY@0800 09/03/13 Hydrocodone/Acetaminophen [Vicodin 1 - 2 tablet PO Q6H PRN PRN 09/03/13 5-300 mg Tablet] Lisinopril 10 mg PO DAILY 09/03/13 Metformin [Metformin HCl] 1,000 mg PO BID 09/03/13 Metoprolol Tartrate 50 mg PO DAILY 09/03/13 Dulaglutide [Trulicity] 0.75 mg SQ 01/02/18 Fluticasone/Vilanterol [Breo 1 each IH 01/02/18 Ellipta 200-25 Mcg INH] Insulin Glargine,Hum.rec.anlog 56 unit BID 01/02/18 [Lantus] Sitagliptin Phosphate [Januvia] 25 mg PO DAILY 01/02/18 Tiotropium [place] [Spiriva] 18 mcg IH 01/02/18 - Family History Paternal - - The patient's father at the age of 78 with history of chronic obstructive pulmonary disease. The patient's mother at the age of 84 with history of chronic obstructive pulmonary disease. Smoking Status: Former smoker Review of Systems Constitutional: Denies: Chills, Fever, Weight Change Eyes: Denies: Pain, Vision Change HEENT: Denies: Difficulty Hearing, Difficulty Swallowing, Sinus Congestion Cardiovascular: Denies: Chest Pain, Palpitations Respiratory: Denies: Cough, Shortness of Breath Gastrointestinal: Denies: Diarrhea, Nausea, Vomiting Genitourinary: Denies: Dysuria, Hematuria Endocrine: Denies: Heat/ Cold Intolerance, Polydipsia, Polyuria Hematologic/ Lymphatic: Denies: Easy Bruising, Easy Bleeding - Physical Exam Vital Signs Temp Pulse Resp BP 98.7 F 88 18 123/61 H 12/10/19 08:17 12/10/19 08:17 12/10/19 08:17 12/10/19 08:17 General: Alert, Oriented x3, Cooperative, No apparent distress, Well developed, Well nourished, - - The patient is obese. HEENT: Atraumatic, PERRLA, EOMI, Normocephalic Oral: Moist Mucosa Neck: No JVD Lungs: Normal air movement Abdomen: Non-Distended Extremities: No clubbing, No cyanosis, No Calf Tenderness, - - Minimal swelling and edema are noted in the right lower extremity. It appears to be reasonably well controlled. The wounds persist on the anterolateral aspect of the distal right lower extremity. There are in proximity to each other. The lower of the 2 wounds is the larger. On the lower wound, there is evidence of peripheral epithelialization. The base of each wound is pink and healthy in appearance, with active granulation tissue. There is a mild amount of bioburden. Dimensions are documented elsewhere. There is a slight amount of periwound erythema about each of the 2 wounds. Wound Measurements and Assessment WC - Nurse 1 - General Ulcer Measurement Start: 11/26/19 10:23 Freq: Status: Active Protocol: Activity Type Activity Date Activity User E-Sign Co-Sign Detail Recorded Client Recorded Date Recorded By Document 12/10/19 08:17 DL [id number] 12/10/19 08:25 DL 12/10/19 08:17 Wound Center Nurse 1 [Ulcer Assessment] #3 LATERAL RLE -Current Size (cm) - Length 2.1 -Current Size (cm) - Width 2.2 -Current Size (cm) - Depth 0.2 -Total Square Cm 4.62 -Photo Taken No -Exudate Amt Small -Exudate Type Serosanguineous -Wound Margin Distinct, Outline Attached -Granulation Amt Medium (34-66%) -Granulation Quality Red -Necrosis Amt Medium (34-66%) -Necrotic Tissue Type Adherent Slough -Structure Exposed N/A -Texture (Ketty-wound Skin Appearance) Scarring -Moisture (Ketty-wound Skin Appearance No Abnormality ) -Color (Ketty-wound Skin Appearance) Erythema,Rubor -Temperature (Ketty-wound Skin No Abnormality Appearance) (Pt Warm) -Tenderness on Palpation (Ketty-wound No Skin Appearance) -Ulcer Cleansing Rinsed/ Irrigated with Saline -Foul Odor after Cleansing No -Anesthetic Used 4% Lidocaine Solution #2 R Vaz -Current Size (cm) - Length 2.8 -Current Size (cm) - Width 2.8 -Current Size (cm) - Depth 0.2 -Total Square Cm 7.84 -Photo Taken No -Exudate Amt Small -Exudate Type Serosanguineous -Wound Margin Distinct, Outline Attached -Granulation Amt Medium (34-66%) -Granulation Quality Red -Necrosis Amt Medium (34-66%) -Necrotic Tissue Type Adherent Slough -Structure Exposed N/A -Texture (Ketty-wound Skin Appearance) Scarring -Moisture (Ketty-wound Skin Appearance No Abnormality ) -Color (Ketty-wound Skin Appearance) Erythema,Rubor -Temperature (Ketty-wound Skin No Abnormality Appearance) (Pt Warm) -Tenderness on Palpation (Ketty-wound No Skin Appearance) -Ulcer Cleansing Rinsed/ Irrigated with Saline -Foul Odor after Cleansing No -Anesthetic Used 4% Lidocaine Solution [Edema Assessment] -Right Calf (cm) 40.5 -Right Ankle (cm) 23.4 WC - Nurse 2 - General Ulcer CM Notes Start: 12/09/19 10:58 Freq: Status: Active Protocol: Activity Type Activity Date Activity User E-Sign Co-Sign Detail Recorded Client Recorded Date Recorded By Document 12/10/19 08:37 PL [id number] 12/10/19 08:43 PL 12/10/19 08:37 Wound Center Nurse 2 [Procedure/Treatment] #3 LATERAL RLE -Time 08:37 -Correct Patient Yes -Correct Side, Site, Position Yes -Correct Procedure Yes -Procedure Performed Yes -Type of Procedure Debridement -Clinical Debridement Subcutaneous -Tissue Removed Subcutaneous -Post Debridement (cm) - Length 1.5 -Post Debridement (cm) - Width 2 -Post Debridement (cm) - Depth 0.2 -Total Square (Post) (cm) 3.0 -Area of Debridement (cm) - Length 1.5 -Area of Debridement (cm) - Width 2 -Total Square (Area) (cm) 3.0 -Tunneling No -Undermining/Tunneling No -Wound/Ulcer Outcome Not Healed -Bioengineered Tissue No -Debridement - Subq, 1st 20sq cm Yes #2 R Vaz -Time 08:37 -Correct Patient Yes -Correct Side, Site, Position Yes -Correct Procedure Yes -Procedure Performed Yes -Type of Procedure Debridement -Clinical Debridement Subcutaneous -Tissue Removed Subcutaneous -Post Debridement (cm) - Length 1.5 -Post Debridement (cm) - Width 2.5 -Post Debridement (cm) - Depth 0.2 -Total Square (Post) (cm) 3.75 -Area of Debridement (cm) - Length 1.5 -Area of Debridement (cm) - Width 2.5 -Total Square (Area) (cm) 3.75 -Tunneling No -Undermining/Tunneling No -Circular Undermining No -Wound/Ulcer Outcome Not Healed -Bioengineered Tissue No -Bleeding Controlled with Pressure -Debridement - Subq, 1st 20sq cm Yes [See Physician Procedure note for Specifics] Pain Scale: 0-10 Numeric [Pain] -Is Patient Pain Free? Yes Musculoskeletal: No Muscle Wasting Neurological: Cranial nerves II-XII grossly intact, Neuro grossly intact Psych/Mental Status: Normal Affect, Appropriate, Alert and oriented to time, p lace, person, mood and affect Debridement Note Post-Debridement Measurements/Treatment WC - Nurse 2 - General Ulcer CM Notes Start: 12/09/19 10:58 Freq: Status: Active Protocol: Activity Type Activity Date Activity User E-Sign Co-Sign Detail Recorded Client Recorded Date Recorded By Document 12/10/19 08:37 PL [id number] 12/10/19 08:43 PL 12/10/19 08:37 Wound Center Nurse 2 #3 LATERAL RLE -Time 08:37 -Correct Patient Yes -Correct Side, Site, Position Yes -Correct Procedure Yes -Procedure Performed Yes -Type of Procedure Debridement -Clinical Debridement Subcutaneous -Tissue Removed Subcutaneous -Post Debridement (cm) - Length 1.5 -Post Debridement (cm) - Width 2 -Post Debridement (cm) - Depth 0.2 -Total Square (Post) (cm) 3.0 -Area of Debridement (cm) - Length 1.5 -Area of Debridement (cm) - Width 2 -Total Square (Area) (cm) 3.0 -Tunneling No -Undermining/Tunneling No -Wound/Ulcer Outcome Not Healed -Bioengineered Tissue No -Debridement - Subq, 1st 20sq cm Yes #2 R Vaz -Time 08:37 -Correct Patient Yes -Correct Side, Site, Position Yes -Correct Procedure Yes -Procedure Performed Yes -Type of Procedure Debridement -Clinical Debridement Subcutaneous -Tissue Removed Subcutaneous -Post Debridement (cm) - Length 1.5 -Post Debridement (cm) - Width 2.5 -Post Debridement (cm) - Depth 0.2 -Total Square (Post) (cm) 3.75 -Area of Debridement (cm) - Length 1.5 -Area of Debridement (cm) - Width 2.5 -Total Square (Area) (cm) 3.75 -Tunneling No -Undermining/Tunneling No -Circular Undermining No -Wound/Ulcer Outcome Not Healed -Bioengineered Tissue No -Bleeding Controlled with Pressure -Debridement - Subq, 1st 20sq cm Yes Pain Scale: 0-10 Numeric Is Patient Pain Free? Yes Laterality: Right - Anterolateral calf Type of Debridement: Excisional debridement Anesthesia Used: 5% Lidocaine Gel Depth: Down to and including healthy tissue, in the subcutaneous layer Percentage of wound debrided: 100 Instrument Used: 5mm curette Tissue Removed: Bioburden and nonviable tissue Severity: Fat Layer Exposed Amount of bleeding with debridement: Mild Bleeding Controlled with: Compression and gauze Patient tolerated procedure well Assessment/Plan Active Problems Traumatic open wound of lower leg (Chronic) Leg swelling (Chronic) Edema of leg (Chronic) Diabetes mellitus (Chronic) Chronic wound of extremity (Chronic) Ulcer of calf due to diabetes mellitus (Chronic) Non-pressure chronic ulcer of right calf with fat layer exposed (Chronic) Assessment: This is a 59-year-old female who presented with traumatic wounds on the right lower extremity, of several months duration. The ulceration overlying the right bunion remains completely healed. A noninvasive lower extremity arterial study performed this morning reveals normal ankle-brachial index on the right, and a normal digital brachial index on the right as well. The ulcerations on the anterolateral aspect of the right calf have shown slight improvement in recent weeks. Cultures were recently obtained, which were positive for Pseudomonas aeruginosa. Based upon culture and sensitivity results, the patient was placed on Levaquin 500 mg daily, which has been complet ed. An anaerobic cocci was also isolated, and the patient was placed on Flagyl 500 mg p.o. 3 times daily for a total of 10 days, which has been completed. A battery of diagnostic tests have been recently obtained, with results as follows: Glucose 172, BUN 19, creatinine 0.82, total protein 7.0, albumin 3.8, calcium 9.0, AST 32, alkaline phosphatase 70, ALT 47, total bilirubin 0.40, sodium 136, potassium 4.5, chloride 103, serum prealbumin 31.2, hemoglobin A1c 8.9, white blood count 6.0, hemoglobin 13.2, hematocrit 41.3, platelets 181,000. According to the patient, her blood sugars continue to run around 150 each day, and she indicates that she is consuming a well-balanced and nutritious diet. Plan: Patient has been counseled as to the appropriate foot care necessary in diabetic patients. Patient has been strongly urged to seek evaluation by a silviculture forester, for the fitting of appropriate footwear. Furthermore, frequent inspection of the patient's feet, appropriate toenail trimming by professional, etc., have been recommended. Patient has been advised to optimize her glycemic control. Adequate nutrition has been advised. We are to continue the use of co llagenase Santyl topically relative to the right calf wounds on a daily basis. We are to seek preauthorization for the use of a skin substitute, such as EpiFix or NuShield. Patient is to follow-up in 2 weeks for reevaluation. Given the recurrent infections of the patient's right lower extremity ulcerations, often with different organisms, we requested consultation with the Infectious Disease service, seeking recommendations as to how to avoid these recurrent infections. The patient has been evaluated by Dr. Busby, infectious disease specialist, and his recommendations have been noted. These include recommendations to stop antibiotics and avoid screening cultures. He has advised to continue with topical care, and consider the use of a skin substitute. The patient is to continue wearing her graduated compression stockings of 20 to 30 mmHg compression on a daily basis. The patient is to continue elevating her legs as much as possible. She is to avoid prolonged idle sitting. The patient has been encouraged to assure adequate nutrition. Optimizing glycemic control has also been advised. Weight loss has also been recommended. She will follow-up in our clinic in 2 weeks. We will also consider the use of a skin substitute, and will query the patient's insurance as to what benefits are available. At this juncture, it appears as though the use of a skin substitute may be an [id number] expense for the patient, which may be prohibitive. We continue to pursue this as an option. Of particular note, there may be some benefit to initiating PuraPly topically as an additional measure, given the persistence of mild periwound erythema and suspicion as to topical bioburden. In the short- term, we are to have the patient shower with Ebony-Hex locally to the wound area on a daily basis in an effort to minimize bacterial growth. We are to continue collagenase Santyl topically for now, as there is some indication of epithelialization in recent weeks. Influenza vaccine was not administered today. The patient is not a smoker. Patient weighs 265 pounds. She stands 5 feet 4 inches tall. Her BMI is 45.5, which places her in a class III category. Weight loss has been recommended, and collaboration with the patient's primary care physician has been recommended.
[2019-12-17 08:07] VITALS: BP 141/71; PULSE 103; RESP 18; TEMP 36.8; BMI 44.9
--- NOTE | 2019-12-17 08:34 | PCM.WC.HP ---
(1) Traumatic open wound of lower leg Status: Chronic Current Visit: Yes Qualifiers: Encounter type: subsequent encounter Laterality: right Qualified Code(s): S81.801D - Unspecified open wound, right lower leg, subsequent encounter Code(s): S81.809A - Unspecified open wound, unspecified lower leg, initial encounter (2) Leg swelling Status: Chronic Current Visit: Yes Code(s): M79.89 - Other specified soft tissue disorders (3) Edema of leg Status: Chronic Current Visit: Yes Code(s): R60.0 - Localized edema (4) Diabetes mellitus Status: Chronic Current Visit: Yes Qualifiers: Diabetes mellitus type: type 2 Code(s): E11.9 - Type 2 diabetes mellitus without complications (5) Morbid obesity with BMI of 45.0-49.9, adult Status: Chronic Current Visit: No Code(s): E66.01 - Morbid (severe) obesity due to excess calories; Z68.42 - Body mass index (BMI) 45.0-49.9, adult (6) COPD (chronic obstructive pulmonary disease) Status: Chronic Current Visit: No Code(s): J44.9 - Chronic obstructive pulmonary disease, unspecified (7) Coronary artery arteriosclerosis Status: Chronic Current Visit: No Code(s): I25.10 - Atherosclerotic heart disease of [place] coronary artery without angina pectoris (8) Lumbar disc disease with radiculopathy Status: Chronic Current Visit: No Code(s): M51.16 - Intervertebral disc disorders with radiculopathy, lumbar region (9) Chronic wound of extremity Status: Chronic Current Visit: Yes (10) Ulcer of calf due to diabetes mellitus Status: Chronic Current Visit: Yes Code(s): E11.622 - Type 2 diabetes mellitus with other skin ulcer; L97.209 - Non-pressure chronic ulcer of unspecified calf with unspecified severity (11) Non-pressure chronic ulcer of right calf with fat layer exposed Status: Chronic Current Visit: Yes Code(s): L97.212 - Non-pressure chronic ulcer of right calf with fat layer exposed History of Present Illness Date of Service: 12/17/19 Chief Complaint: Chronic open wound of the right lower extremity secondary to diabetes mellitus, Diabetic right foot wound - [place] Grade 1 History of Wound: This is a 59-year-old diabetic female who has been previously treated in our facility for a traumatic wound on the left lower extremity. She presented this time with wounds in her right lower extremity. There are 2 wounds involving the right calf, which were initially traumatic in origin. They are located on the right anterior tibial surface and on the right lateral calf. These occurred due to impact with a car door in December 2018. It is felt, however, that the failure of the patient's wounds to heal is due to her longstanding diabetes mellitus. The patient has been using Collagenase Santyl topically. She also developed a more recent ulceration on the right foot, located overlying a bunion, which has now subsequently healed. According the patient, this occurred as a result of a new pair of sneakers, which she obtained at a retail establishment. The patient is known to be diabetic, and her blood sugars appear to be reasonably well controlled, based upon the patient's account. The previous wound in the left lower extremity has remained healed. The patient has continued to implement conservative treatment measures previously recommended, including leg elevation, avoidance of idle standing and sitting, active lifestyle, attempts at weight loss, and the use of graduated compression stockings on a daily basis, of 20 to 30 mmHg compression. Past Medical History Past Medical History: Chronic Problems Traumatic open wound of lower leg (Chronic) Leg swelling (Chronic) Edema of leg (Chronic) Diabetes mellitus (Chronic) Morbid obesity with BMI of 45.0-49.9, adult (Chronic) COPD (chronic obstructive pulmonary disease) (Chronic) Coronary artery arteriosclerosis (Chronic) Lumbar disc disease with radiculopathy (Chronic) Chronic wound of extremity (Chronic) Ulcer of calf due to diabetes mellitus (Chronic) Non-pressure chronic ulcer of right calf with fat layer exposed (Chronic) Surgical History: - - The patient has a history of coronary artery stent placement. She has undergone open reduction and internal fixation of a left tibia fracture. She underwent right meniscus repair in the past. She is a Ab0. Allergies/Adverse Reactions: Allergies bee venom protein (honey bee) Adverse Reaction (Verified 03/19/19 09:02) Swelling Home Medications: Ambulatory Orders Medication Instructions Recorded Aspirin E.C. [Ecotrin] 81 mg PO DAILY@0800 09/03/13 Hydrocodone/Acetaminophen [Vicodin 1 - 2 tablet PO Q6H PRN PRN 09/03/13 5-300 mg Tablet] Lisinopril 10 mg PO DAILY 09/03/13 Metformin [Metformin HCl] 1,000 mg PO BID 09/03/13 Metoprolol Tartrate 50 mg PO DAILY 09/03/13 Dulaglutide [Trulicity] 0.75 mg SQ 01/02/18 Fluticasone/Vilanterol [Breo 1 each IH 01/02/18 Ellipta 200-25 Mcg INH] Insulin Glargine,Hum.rec.anlog 56 unit BID 01/02/18 [Lantus] Sitagliptin Phosphate [Januvia] 25 mg PO DAILY 01/02/18 Tiotropium [place] [Spiriva] 18 mcg IH 01/02/18 - Family History Paternal - - The patient's father at the age of 78 with history of chronic obstructive pulmonary disease. The patient's mother at the age of 84 with history of chronic obstructive pulmonary disease. Smoking Status: Former smoker Review of Systems Constitutional: Denies: Chills, Fever, Weight Change Eyes: Denies: Pain, Vision Change HEENT: Denies: Difficulty Hearing, Difficulty Swallowing, Sinus Congestion Cardiovascular: Denies: Chest Pain, Palpitations Respiratory: Denies: Cough, Shortness of Breath Gastrointestinal: Denies: Diarrhea, Nausea, Vomiting Genitourinary: Denies: Dysuria, Hematuria Endocrine: Denies: Heat/ Cold Intolerance, Polydipsia, Polyuria Hematologic/ Lymphatic: Denies: Easy Bruising, Easy Bleeding - Physical Exam Vital Signs Temp Pulse Resp BP 98.3 F 103 H 18 141/71 H 12/17/19 08:07 12/17/19 08:07 12/17/19 08:07 12/17/19 08:07 General: Alert, Oriented x3, Cooperative, No apparent distress, Well developed, Well nourished HEENT: Atraumatic, PERRLA, EOMI, Normocephalic Oral: Moist Mucosa Neck: No JVD Lungs: Normal air movement Abdomen: Non-Distended Extremities: No clubbing, No cyanosis, No edema, No Calf Tenderness, - - The wounds on the right anterolateral calf persists. They are little changed in appearance. Dimensions are documented elsewhere. There is no ralph or obvious sign of infection or cellulitis. There is a hint of erythema about the wounds. This has been a chronic finding. There is a moderate amount of bioburden. The inferior wound is well beveled. The superior wound margins are not as well beveled. Wound Measurements and Assessment WC - Nurse 1 - General Ulcer Measurement Start: 11/26/19 10:23 Freq: Status: Active Protocol: Activity Type Activity Date Activity User E-Sign Co-Sign Detail Recorded Client Recorded Date Recorded By Document 12/17/19 08:07 DL [id number] 12/17/19 08:15 DL 12/17/19 08:07 Wound Center Nurse 1 [Ulcer Assessment] #3 LATERAL RLE -Current Size (cm) - Length 2.2 -Current Size (cm) - Width 1.9 -Current Size (cm) - Depth 0.2 -Total Square Cm 4.18 -Photo Taken No -Exudate Amt Small -Wound Margin Distinct, Outline Attached -Granulation Amt Medium (34-66%) -Granulation Quality Red -Necrosis Amt Medium (34-66%) -Necrotic Tissue Type Adherent Slough -Structure Exposed N/A -Texture (Ketty-wound Skin Appearance) Scarring -Moisture (Ketty-wound Skin Appearance No Abnormality ) -Color (Ketty-wound Skin Appearance) Erythema, Hemosiderin Staining,Rubor -Temperature (Ketty-wound Skin No Abnormality Appearance) (Pt Warm) -Tenderness on Palpation (Ketty-wound No Skin Appearance) -Ulcer Cleansing Rinsed/ Irrigated with Saline -Foul Odor after Cleansing No -Anesthetic Used 4% Lidocaine Solution #2 R Vaz -Current Size (cm) - Length 2.6 -Current Size (cm) - Width 2.5 -Current Size (cm) - Depth 0.2 -Total Square Cm 6.50 -Photo Taken No -Exudate Amt Small -Exudate Type Serosanguineous -Wound Margin Distinct, Outline Attached -Granulation Amt Small (1-33%) -Granulation Quality Red -Necrosis Amt Large (67-100%) -Necrotic Tissue Type Adherent Slough -Structure Exposed N/A -Texture (Ketty-wound Skin Appearance) Scarring -Moisture (Ketty-wound Skin Appearance No Abnormality ) -Color (Ketty-wound Skin Appearance) Erythema, Hemosiderin Staining,Rubor -Temperature (Ketty-wound Skin No Abnormality Appearance) (Pt Warm) -Tenderness on Palpation (Ketty-wound No Skin Appearance) -Ulcer Cleansing Rinsed/ Irrigated with Saline -Foul Odor after Cleansing No -Anesthetic Used 4% Lidocaine Solution [Edema Assessment] -Right Calf (cm) 41 -Right Ankle (cm) 23 WC - Nurse 2 - General Ulcer CM Notes Start: 12/09/19 10:58 Freq: Status: Active Protocol: Activity Type Activity Date Activity User E-Sign Co-Sign Detail Recorded Client Recorded Date Recorded By Document 12/17/19 08:28 PL [id number] 12/17/19 08:32 PL 12/17/19 08:28 Wound Center Nurse 2 [Procedure/Treatment] #3 LATERAL RLE -Time 08:27 -Correct Patient Yes -Correct Side, Site, Position Yes -Correct Procedure Yes -Procedure Performed Yes -Type of Procedure Debridement -Clinical Debridement Subcutaneous -Tissue Removed Subcutaneous -Post Debridement (cm) - Length 2 -Post Debridement (cm) - Width 2.2 -Post Debridement (cm) - Depth 0.2 -Total Square (Post) (cm) 4.4 -Area of Debridement (cm) - Length 2 -Area of Debridement (cm) - Width 2.2 -Total Square (Area) (cm) 4.4 -Tunneling No -Undermining/Tunneling No -Circular Undermining No -Wound/Ulcer Outcome Not Healed -Bioengineered Tissue No -Debridement - Subq, 1st 20sq cm Yes #2 R Vaz -Time 08:27 -Correct Patient Yes -Correct Side, Site, Position Yes -Correct Procedure Yes -Procedure Performed Yes -Type of Procedure Debridement -Clinical Debridement Subcutaneous -Tissue Removed Subcutaneous -Post Debridement (cm) - Length 3 -Post Debridement (cm) - Width 2.7 -Post Debridement (cm) - Depth 0.2 -Total Square (Post) (cm) 8.1 -Area of Debridement (cm) - Length 3 -Area of Debridement (cm) - Width 2.7 -Total Square (Area) (cm) 8.1 -Tunneling No -Undermining/Tunneling No -Wound/Ulcer Outcome Not Healed -Ulcer Cleansing Rinsed/ Irrigated with Saline -Foul Odor after Cleansing No -Bioengineered Tissue No -Debridement - Subq, 1st 20sq cm No [See Physician Procedure note for Specifics] Pain Scale: 0-10 Numeric [Pain] -Is Patient Pain Free? Yes Musculoskeletal: No Muscle Wasting Neurological: Cranial nerves II-XII grossly intact, Neuro grossly intact Psych/Mental Status: Normal Affect, Appropriate, Alert and oriented to time, place, person, mood and affect Debridement Note Post-Debridement Measurements/Treatment WC - Nurse 2 - General Ulcer CM Notes Start: 12/09/19 10:58 Freq: Status: Active Protocol: Activity Type Activity Date Activity User E-Sign Co-Sign Detail Recorded Client Recorded Date Recorded By Document 12/10/19 08:37 PL [id number] 12/10/19 08:43 PL Document 12/17/19 08:28 PL [id number] 12/17/19 08:32 PL 12/10/19 12/17/19 08:37 08:28 Wound Center Nurse 2 #3 LATERAL RLE -Time 08:37 08:27 -Correct Patient Yes Yes -Correct Side, Site, Position Yes Yes -Correct Procedure Yes Yes -Procedure Performed Yes Yes -Type of Procedure Debridement Debridement -Clinical Debridement Subcutaneous Subcutaneous -Tissue Removed Subcutaneous Subcutaneous -Post Debridement (cm) - Length 1.5 2 -Post Debridement (cm) - Width 2 2.2 -Post Debridement (cm) - Depth 0.2 0.2 -Total Square (Post) (cm) 3.0 4.4 -Area of Debridement (cm) - Length 1.5 2 -Area of Debridement (cm) - Width 2 2.2 -Total Square (Area) (cm) 3.0 4.4 -Tunneling No No -Undermining/Tunneling No No -Circular Undermining No -Wound/Ulcer Outcome Not Healed Not Healed -Bioengineered Tissue No No -Debridement - Subq, 1st 20sq cm Yes Yes #2 R Vaz -Time 08:37 08:27 -Correct Patient Yes Yes -Correct Side, Site, Position Yes Yes -Correct Procedure Yes Yes -Procedure Performed Yes Yes -Type of Procedure Debridement Debridement -Clinical Debridement Subcutaneous Subcutaneous -Tissue Removed Subcutaneous Subcutaneous -Post Debridement (cm) - Length 1.5 3 -Post Debridement (cm) - Width 2.5 2.7 -Post Debridement (cm) - Depth 0.2 0.2 -Total Square (Post) (cm) 3.75 8.1 -Area of Debridement (cm) - Length 1.5 3 -Area of Debridement (cm) - Width 2.5 2.7 -Total Square (Area) (cm) 3.75 8.1 -Tunneling No No -Undermining/Tunneling No No -Circular Undermining No -Wound/Ulcer Outcome Not Healed Not Healed -Ulcer Cleansing Rinsed/ Irrigated with Saline -Foul Odor after Cleansing No -Bioengineered Tissue No No -Bleeding Controlled with Pressure -Debridement - Subq, 1st 20sq cm No No Pain Scale: 0-10 Numeric Is Patient Pain Free? Yes Yes Laterality: Right - Anterolateral calf x2 Type of Debridement: Excisional debridement Anesthesia Used: 5% Lidocaine Gel Depth: Down to and including healthy tissue, in the subcutaneous layer Percentage of wound debrided: 100 Instrument Used: 5mm curette Tissue Removed: Bioburden Severity: Fat Layer Exposed Amount of bleeding with debridement: Mild Bleeding Controlled with: Compression and gauze Patient tolerated procedure well Assessment/Plan Active Problems Traumatic open wound of lower leg (Chronic) Leg swelling (Chronic) Edema of leg (Chronic) Diabetes mellitus (Chronic) Chronic wound of extremity (Chronic) Ulcer of calf due to diabetes mellitus (Chronic) Non-pressure chronic ulcer of right calf with fat layer exposed (Chronic) Assessment: This is a 59-year-old female who presented with traumatic wounds on the right lower extremity, of several months duration. The ulceration overlying the right bunion remains completely healed. A noninvasive lower extremity arterial study performed this morning reveals normal ankle-brachial index on the right, and a normal digital brachial index on the right as well. The ulcerations on the anterolateral aspect of the right calf have shown slight improvement in recent weeks. A battery of diagnostic tests have been recently obtained, with results as follows: Glucose 172, BUN 19, creatinine 0.82, total protein 7.0, albumin 3.8, calcium 9.0, AST 32, alkaline phosphatase 70, ALT 47, total bilirubin 0.40, sodium 136, potassium 4.5, chloride 103, serum prealbumin 31.2, hemoglobin A1c 8.9, white blood count 6.0, hemoglobin 13.2, hematocrit 41.3, platelets 181,000. According to the patient, her blood sugars continue to run around 150 each day, and she indicates that she is consuming a well-balanced and nutritious diet. Plan: Patient has been counseled as to the appropriate foot care necessary in diabetic patients. Patient has been strongly urged to seek evaluation by a community organizer, for the fitting of appropriate footwear. Furthermore, frequent inspection of the patient's feet, appropriate toenail trimming by professional, etc., have been recommended. Patient has been advised to optimize her glycemic control. Adequate nutrition has been advised. We are to continue the use of collagenase Santyl topically relative to the right calf wounds on a daily basis. We are to seek preauthorization for the use of a skin substitute, such as EpiFix or NuShield. Patient is to follow-up in 1 week for reevaluation. Given the recurrent infections of the patient's right lower extremity ulcerations, often with different organisms, we requested consultation with the Infectious Disease service, seeking recommendations as to how to avoid these recurrent infections. The patient has been evaluated by Dr. Busby, infectious disease specialist, and his recommendations have been noted. These include recommendations to stop antibiotics and avoid screening cultures. He has advised to continue with topical care, and consider the use of a skin substitute. The patient is to continue wearing her graduated compression stockings of 20 to 30 mmHg compression on a daily basis. The patient is to continue elevating her legs as much as possible. She is to avoid prolonged idle sitting. The patient has been encouraged to assure adequate nutrition. Optimizing glycemic control has also been advised. Weight loss has also been recommended. She will follow-up in our clinic in 1 week. We will also consider the use of a skin substitute, and will query the patient's insurance as to what benefits are available. Of particular note, there may be some benefit to initiating PuraPly topically as an additional measure, given the persistence of mild periwound erythema and suspicion as to topical bioburden. In the short-term, we are to have the patient shower with Ebony-Hex locally to the wound area on a daily basis in an effort to minimize bacterial growth. We are to continue collagenase Santyl topically for now, as there is some indication of epithelialization in recent weeks. Influenza vaccine was not administered today. The patient is not a smoker. Patient weighs 265 pounds. She stands 5 feet 4 inches tall. Her BMI is 45.5, which places her in a class III category. Weight loss has been recommended, and collaboration with the patient's primary care physician has been recommended.
== END 2019-12-23 23:59 ==
LOC: WC 08:00
PROVIDERS: PCP Nurse Practitioner Primary Care; Visit Provider Surgery
DX: E11.622 Type 2 diabetes mellitus with other skin ulcer (principal); L97.212 Non-pressure chronic ulcer of right calf with fat layer exposed; L97.509 Non-pressure chronic ulcer of other part of unspecified foot with unspecified severity; E11.621 Type 2 diabetes mellitus with foot ulcer; M51.16 Intervertebral disc disorders with radiculopathy, lumbar region; M79.89 Other specified soft tissue disorders; R60.0 Localized edema; I25.10 Atherosclerotic heart disease of native coronary artery without angina pectoris; J44.9 Chronic obstructive pulmonary disease, unspecified; E66.01 Morbid (severe) obesity due to excess calories; Z68.42 Body mass index [BMI] 45.0-49.9, adult; Z79.4 Long term (current) use of insulin; Z79.82 Long term (current) use of aspirin; Z95.5 Presence of coronary angioplasty implant and graft; Z87.891 Personal history of nicotine dependence
CPT/HCPCS: 11042

== ENCOUNTER 2020-01-21 08:00 | Outpatient (RCR) | payer OTHER, SELFPAY ==
[2019-12-24 00:45] VITALS: BP 141/71; PULSE 103; RESP 18; TEMP 36.8
[2019-12-31 08:00] VITALS: BP 144/76; PULSE 98; RESP 18; TEMP 36.4; BMI 44.9
--- NOTE | 2019-12-31 08:23 | PCM.WC.HP ---
(1) Traumatic open wound of lower leg Status: Chronic Current Visit: Yes Qualifiers: Encounter type: subsequent encounter Laterality: right Qualified Code(s): S81.801D - Unspecified open wound, right lower leg, subsequent encounter Code(s): S81.809A - Unspecified open wound, unspecified lower leg, initial encounter (2) Leg swelling Status: Chronic Current Visit: Yes Code(s): M79.89 - Other specified soft tissue disorders (3) Edema of leg Status: Chronic Current Visit: Yes Code(s): R60.0 - Localized edema (4) Diabetes mellitus Status: Chronic Current Visit: Yes Qualifiers: Diabetes mellitus type: type 2 Code(s): E11.9 - Type 2 diabetes mellitus without complications (5) Morbid obesity with BMI of 45.0-49.9, adult Status: Chronic Current Visit: Yes Code(s): E66.01 - Morbid (severe) obesity due to excess calories; Z68.42 - Body mass index (BMI) 45.0-49.9, adult (6) COPD (chronic obstructive pulmonary disease) Status: Chronic Current Visit: No Code(s): J44.9 - Chronic obstructive pulmonary disease, unspecified (7) Coronary artery arteriosclerosis Status: Chronic Current Visit: No Code(s): I25.10 - Atherosclerotic heart disease of [place] coronary artery without angina pectoris (8) Diabetic foot wound, [place] Grade 1 Status: Resolved Current Visit: No (9) Ulcer of foot due to diabetes Status: Resolved Current Visit: No Code(s): E11.621 - Type 2 diabetes mellitus with foot ulcer; L97.509 - Non-pressure chronic ulcer of other part of unspecified foot with unspecified severity (10) Lumbar disc disease with radiculopathy Status: Chronic Current Visit: No Code(s): M51.16 - Intervertebral disc disorders with radiculopathy, lumbar region (11) Chronic wound of extremity Status: Chronic Current Visit: Yes (12) Ulcer of calf due to diabetes mellitus Status: Chronic Current Visit: Yes Code(s): E11.622 - Type 2 diabetes mellitus with other skin ulcer; L97.209 - Non-pressure chronic ulcer of unspecified calf with unspecified severity (13) Non-pressure chronic ulcer of right calf with fat layer exposed Status: Chronic Current Visit: Yes Code(s): L97.212 - Non-pressure chronic ulcer of right calf with fat layer exposed History of Present Illness Date of Service: 12/31/19 Chief Complaint: Chronic open wound of the right lower extremity secondary to diabetes mellitus, Diabetic right foot wound - [place] Grade 1 History of Wound: This is a 59-year-old diabetic female who has been previously treated in our facility for a traumatic wound on the left lower extremity. She presented this time with wounds in her right lower extremity. There are 2 wounds involving the right calf, which were initially traumatic in origin. They are located on the right anterior tibial surface and on the right lateral calf. These occurred due to impact with a car door in December 2018. It is felt, however, that the failure of the patient's wounds to heal is due to her longstanding diabetes mellitus. The patient has been using Collagenase Santyl topically. She also developed a more recent ulceration on the right foot, located overlying a bunion, which has now subsequently healed. According the patient, this occurred as a result of a new pair of sneakers, which she obtained at a retail establishment. The patient is known to be diabetic, and her blood sugars appear to be reasonably well controlled, based upon the patient's account. The previous wound in the left lower extremity has remained healed. The patient has continued to implement conservative treatment measures previously recommended, including leg elevation, avoidance of idle standing and sitting, active lifestyle, attempts at weight loss, and the use of graduated compression stockings on a daily basis, of 20 to 30 mmHg compression. Past Medical History Past Medical History: Chronic Problems Traumatic open wound of lower leg (Chronic) Leg swelling (Chronic) Edema of leg (Chronic) Diabetes mellitus (Chronic) Morbid obesity with BMI of 45.0-49.9, adult (Chronic) COPD (chronic obstructive pulmonary disease) (Chronic) Coronary artery arteriosclerosis (Chronic) Lumbar disc disease with radiculopathy (Chronic) Chronic wound of extremity (Chronic) Ulcer of calf due to diabetes mellitus (Chronic) Non-pressure chronic ulcer of right calf with fat layer exposed (Chronic) Surgical History: - - The patient has a history of coronary artery stent placement. She has undergone open reduction and internal fixation of a left tibia fracture. She underwent right meniscus repair in the past. She is a Ab0. Allergies/Adverse Reactions: Allergies bee venom protein (honey bee) Adverse Reaction (Verified 03/19/19 09:02) Swelling Home Medications: Ambulatory Orders Medication Instructions Recorded Aspirin E.C. [Ecotrin] 81 mg PO DAILY@0800 09/03/13 Hydrocodone/Acetaminophen [Vicodin 1 - 2 tablet PO Q6H PRN PRN 09/03/13 5-300 mg Tablet] Lisinopril 10 mg PO DAILY 09/03/13 Metformin [Metformin HCl] 1,000 mg PO BID 09/03/13 Metoprolol Tartrate 50 mg PO DAILY 09/03/13 Dulaglutide [Trulicity] 0.75 mg SQ 01/02/18 Fluticasone/Vilanterol [Breo 1 each IH 01/02/18 Ellipta 200-25 Mcg INH] Insulin Glargine,Hum.rec.anlog 56 unit BID 01/02/18 [Lantus] Sitagliptin Phosphate [Januvia] 25 mg PO DAILY 01/02/18 Tiotropium [place] [Spiriva] 18 mcg IH 01/02/18 - Family History Paternal - - The patient's father at the age of 78 with history of chronic obstructive pulmonary disease. The patient's mother at the age of 84 with history of chronic obstructive pulmonary disease. Smoking Status: Former smoker Review of Systems Constitutional: Denies: Chills, Fever, Weight Change Eyes: Denies: Pain, Vision Change HEENT: Denies: Difficulty Hearing, Difficulty Swallowing, Sinus Congestion Cardiovascular: Denies: Chest Pain, Palpitations Respiratory: Denies: Cough, Shortness of Breath Gastrointestinal: Denies: Diarrhea, Nausea, Vomiting Genitourinary: Denies: Dysuria, Hematuria Endocrine: Denies: Heat/ Cold Intolerance, Polydipsia, Polyuria Hematologic/ Lymphatic: Denies: Easy Bruising, Easy Bleeding - Physical Exam Vital Signs Temp Pulse Resp BP 97.6 F L 98 18 144/76 H 12/31/19 08:00 12/31/19 08:00 12/31/19 08:00 12/31/19 08:00 General: Alert, Oriented x3, Cooperative, No apparent distress, Well developed, Well nourished, - - The patient is obese HEENT: Atraumatic, PERRLA, EOMI, Normocephalic Oral: Moist Mucosa Neck: No JVD Lungs: Normal air movement Abdomen: Non-Distended Extremities: No clubbing, No cyanosis, No Calf Tenderness, - - There is no significant swelling or edema in the patient's right lower extremity. The 2 wounds on the anterolateral aspect of the right distal lower extremity persist. There is a moderate amount of bioburden. There is slight erythema, which appears to be chronic in nature. Dimensions are documented elsewhere. Wound Measurements and Assessment WC - Nurse 1 - General Ulcer Measurement Start: 12/31/19 07:58 Freq: Status: Active Protocol: Activity Type Activity Date Activity User E-Sign Co-Sign Detail Recorded Client Recorded Date Recorded By Document 12/31/19 08:00 PL [id number] 12/31/19 08:07 PL 12/31/19 08:00 Wound Center Nurse 1 [Ulcer Assessment] #3 LATERAL RLE -Combined with other wound No -Current Size (cm) - Length 2 -Current Size (cm) - Width 2 -Current Size (cm) - Depth 0.2 -Total Square Cm 4 -Photo Taken No -Epithelialization None Present -Tunneling No -Undermining/Tunneling No -Circular Undermining No -Exudate Amt Medium -Exudate Type Serosanguineous -Granulation Amt Small (1-33%) -Granulation Quality [place] -Slough/Fibrin Yes -Necrosis Amt Large (67-100%) -Necrotic Tissue Type Adherent Slough -Texture (Ketty-wound Skin Appearance) No Abnormality -Moisture (Ketty-wound Skin Appearance No Abnormality ) -Color (Ketty-wound Skin Appearance) No Abnormality -Temperature ([place]et[place]-wound Skin No Abnormality Appearance) (Pt Warm) -Ulcer Cleansing Rinsed/ Irrigated with Saline -Foul Odor after Cleansing No -Anesthetic Used 5% Lidocaine Gel #2 R Vaz -Combined with other wound No -Current Size (cm) - Length 2.7 -Current Size (cm) - Width 2.7 -Current Size (cm) - Depth 0.2 -Total Square Cm 7.29 -Photo Taken No -Epithelialization None Present -Tunneling No -Undermining/Tunneling No -Circular Undermining No -Exudate Amt Medium -Exudate Type Serosanguineous -Granulation Amt Small (1-33%) -Granulation Quality [place] -Slough/Fibrin Yes -Necrosis Amt Large (67-100%) -Necrotic Tissue Type Adherent Slough -Texture (Ketty-wound Skin Appearance) No Abnormality -Moisture (Ketty-wound Skin Appearance No Abnormality ) -Color (Ketty-wound Skin Appearance) No Abnormality -Temperature ([place]et[place]-wound Skin No Abnormality Appearance) (Pt Warm) -Ulcer Cleansing Rinsed/ Irrigated with Saline -Foul Odor after Cleansing No -Anesthetic Used 5% Lidocaine Gel Musculoskeletal: No Muscle Wasting Neurological: Cranial nerves II-XII grossly intact, Neuro grossly intact Psych/Mental Status: Normal Affect, Appropriate, Alert and oriented to time, place, person, mood and affect Debridement Note Laterality: Right - Anterolateral calf Type of Debridement: Excisional debridement Anesthesia Used: 5% Lidocaine Gel Depth: Down to and including healthy tissue, in the subcutaneous layer Percentage of wound debrided: 100 Instrument Used: 5mm curette Tissue Removed: Bioburden Severity: Fat Layer Exposed Amount of bleeding with debridement: Mild Bleeding Controlled with: Compression and gauze Patient tolerated procedure well Assessment/Plan Active Problems Traumatic open wound of lower leg (Chronic) Leg swelling (Chronic) Edema of leg (Chronic) Diabetes mellitus (Chronic) Morbid obesity with BMI of 45.0-49.9, adult (Chronic) Chronic wound of extremity (Chronic) Ulcer of calf due to diabetes mellitus (Chronic) Non-pressure chronic ulcer of right calf with fat layer exposed (Chronic) Assessment: This is a 59-year-old female who presented with traumatic wounds on the right lower extremity, of several months duration. The ulceration overlying the right bunion remains completely healed. A noninvasive lower extremity arterial study performed this morning reveals normal ankle-brachial index on the right, and a normal digital brachial index on the right as well. The ulcerations on the anterolateral aspect of the right calf have shown slight improvement in recent weeks. A battery of diagnostic tests have been recently obtained, with results as follows: Glucose 172, BUN 19, creatinine 0.82, total protein 7.0, albumin 3.8, calcium 9.0, AST 32, alkaline phosphatase 70, ALT 47, total bilirubin 0.40, sodium 136, potassium 4.5, chloride 103, serum prealbumin 31.2, hemoglobin A1c 8.9, white blood count 6.0, hemoglobin 13.2, hematocrit 41.3, platelets 181,000. According to the patient, her blood sugars continue to run around 150 each day, and she indicates that she is consuming a well-balanced and nutritious diet. Plan: Patient has been counseled as to the appropriate foot care necessary in diabetic patients. Patient has been strongly urged to seek evaluation by a rhinestone setter, for the fitting of appropriate footwear. Furthermore, frequent inspection of the patient's feet, appropriate toenail trimming by professional, etc., have been recommended. Patient has been advised to optimize her glycemic control. Adequate nutrition has been advised. We are to transition from the use of collagenase Santyl, to the use of Promogran, which will be applied by the patient topically on a daily basis. She has been instructed in the appropriate means of application. Our request for preauthorization for PuraPly and skin substitutes has been denied by the patient's insurance company. Patient is to follow-up in 1 week for reevaluation. Given the recurrent infections of the patient's right lower extremity ulcerations, often with different organisms, we requested consultation with the Infectious Disease service, seeking recommendations as to how to avoid these recurrent infections. The patient has been evaluated by Dr. Busby, infectious disease specialist, and his recommendations have been noted. These include recommendations to stop antibiotics and avoid screening cultures. He advised to continue with topical care, and consider the use of a skin substitute. The patient is to continue wearing her graduated compression stockings of 20 to 30 mmHg compression on a daily basis. The patient is to continue elevating her legs as much as possible. She is to avoid prolonged idle sitting. The patient has been encouraged to assure adequate nutrition. Optimizing glycemic control has also been advised. Weight loss has also been recommended. She will follow-up in our clinic in 1 week. We are to have the patient continue showering with Ebony-Hex locally to the wound area on a daily basis in an effort to minimize bacterial growth. Influenza vaccine was not administered today. The patient is not a smoker. Patient weighs 265 pounds. She stands 5 feet 4 inches tall. Her BMI is 45.5, which places her in a class III category. Weight loss has been recommended, and collaboration with the patient's primary care physician has been recommended. Incidentally, the patient underwent right cataract extraction 1 week ago, and appears to be recovering uneventfully.
[2020-01-14 08:05] VITALS: BP 138/75; PULSE 86; RESP 18; TEMP 36.4; BMI 44.9
--- NOTE | 2020-01-14 08:26 | PCM.WC.HP ---
(1) Traumatic open wound of lower leg Status: Chronic Current Visit: Yes Qualifiers: Encounter type: subsequent encounter Laterality: right Qualified Code(s): S81.801D - Unspecified open wound, right lower leg, subsequent encounter Code(s): S81.809A - Unspecified open wound, unspecified lower leg, initial encounter (2) Leg swelling Status: Chronic Current Visit: Yes Code(s): M79.89 - Other specified soft tissue disorders (3) Edema of leg Status: Chronic Current Visit: Yes Code(s): R60.0 - Localized edema (4) Diabetes mellitus Status: Chronic Current Visit: Yes Qualifiers: Diabetes mellitus type: type 2 Code(s): E11.9 - Type 2 diabetes mellitus without complications (5) Morbid obesity with BMI of 45.0-49.9, adult Status: Chronic Current Visit: Yes Code(s): E66.01 - Morbid (severe) obesity due to excess calories; Z68.42 - Body mass index (BMI) 45.0-49.9, adult (6) COPD (chronic obstructive pulmonary disease) Status: Chronic Current Visit: No Code(s): J44.9 - Chronic obstructive pulmonary disease, unspecified (7) Coronary artery arteriosclerosis Status: Chronic Current Visit: No Code(s): I25.10 - Atherosclerotic heart disease of [place] coronary artery without angina pectoris (8) Lumbar disc disease with radiculopathy Status: Chronic Current Visit: No Code(s): M51.16 - Intervertebral disc disorders with radiculopathy, lumbar region (9) Chronic wound of extremity Status: Chronic Current Visit: Yes (10) Ulcer of calf due to diabetes mellitus Status: Chronic Current Visit: Yes Code(s): E11.622 - Type 2 diabetes mellitus with other skin ulcer; L97.209 - Non-pressure chronic ulcer of unspecified calf with unspecified severity (11) Non-pressure chronic ulcer of right calf with fat layer exposed Status: Chronic Current Visit: Yes Code(s): L97.212 - Non-pressure chronic ulcer of right calf with fat layer exposed History of Present Illness Date of Service: 01/14/20 Chief Complaint: Chronic open wound of the right lower extremity secondary to diabetes mellitus, Diabetic right foot wound - [place] Grade 1 History of Wound: This is a 59-year-old diabetic female who has been previously treated in our facility for a traumatic wound on the left lower extremity. She presented this time with wounds in her right lower extremity. There are 2 wounds involving the right calf, which were initially traumatic in origin. They are located on the right anterior tibial surface and on the right lateral calf. These occurred due to impact with a car door in December 2018. It is felt, however, that the failure of the patient's wounds to heal is due to her longstanding diabetes mellitus. The patient has been using Collagenase Santyl topically. She also developed a more recent ulceration on the right foot, located overlying a bunion, which has now subsequently healed. According the patient, this occurred as a result of a new pair of sneakers, which she obtained at a retail establishment. The patient is known to be diabetic, and her blood sugars appear to be reasonably well controlled, based upon the patient's account. The previous wound in the left lower extremity has remained healed. The patient has continued to implement conservative treatment measures previously recommended, including leg elevation, avoidance of idle standing and sitting, active lifestyle, attempts at weight loss, and the use of graduated compression stockings on a daily basis, of 20 to 30 mmHg compression. Past Medical History Past Medical History: Chronic Problems Traumatic open wound of lower leg (Chronic) Leg swelling (Chronic) Edema of leg (Chronic) Diabetes mellitus (Chronic) Morbid obesity with BMI of 45.0-49.9, adult (Chronic) COPD (chronic obstructive pulmonary disease) (Chronic) Coronary artery arteriosclerosis (Chronic) Lumbar disc disease with radiculopathy (Chronic) Chronic wound of extremity (Chronic) Ulcer of calf due to diabetes mellitus (Chronic) Non-pressure chronic ulcer of right calf with fat layer exposed (Chronic) Surgical History: - - The patient has a history of coronary artery stent placement. She has undergone open reduction and internal fixation of a left tibia fracture. She underwent right meniscus repair in the past. She is a Ab0. Allergies/Adverse Reactions: Allergies bee venom protein (honey bee) Adverse Reaction (Verified 03/19/19 09:02) Swelling Home Medications: Ambulatory Orders Medication Instructions Recorded Aspirin E.C. [Ecotrin] 81 mg PO DAILY@0800 09/03/13 Hydrocodone/Acetaminophen [Vicodin 1 - 2 tablet PO Q6H PRN PRN 09/03/13 5-300 mg Tablet] Lisinopril 10 mg PO DAILY 09/03/13 Metformin [Metformin HCl] 1,000 mg PO BID 09/03/13 Metoprolol Tartrate 50 mg PO DAILY 09/03/13 Dulaglutide [Trulicity] 0.75 mg SQ 01/02/18 Fluticasone/Vilanterol [Breo 1 each IH 01/02/18 Ellipta 200-25 Mcg INH] Insulin Glargine,Hum.rec.anlog 56 unit BID 01/02/18 [Lantus] Sitagliptin Phosphate [Januvia] 25 mg PO DAILY 01/02/18 Tiotropium [place] [Spiriva] 18 mcg IH 01/02/18 - Family History Paternal - - The patient's father at the age of 78 with history of chronic obstructive pulmonary disease. The patient's mother at the age of 84 with history of chronic obstructive pulmonary disease. Smoking Status: Former smoker Review of Systems Constitutional: Denies: Chills, Fever, Weight Change Eyes: Denies: Pain, Vision Change HEENT: Denies: Difficulty Hearing, Difficulty Swallowing, Sinus Congestion Cardiovascular: Denies: Chest Pain, Palpitations Respiratory: Denies: Cough, Shortness of Breath Gastrointestinal: Denies: Diarrhea, Nausea, Vomiting Genitourinary: Denies: Dysuria, Hematuria Endocrine: Denies: Heat/ Cold Intolerance, Polydipsia, Polyuria Hematologic/ Lymphatic: Denies: Easy Bruising, Easy Bleeding - Physical Exam Vital Signs Temp Pulse Resp BP 97.6 F L 86 18 138/75 H 01/14/20 08:05 01/14/20 08:05 01/14/20 08:05 01/14/20 08:05 General: Alert, Oriented x3, Cooperative, No apparent distress, Well developed, Well nourished HEENT: Atraumatic, PERRLA, EOMI, Normocephalic Oral: Moist Mucosa Neck: No JVD Lungs: Normal air movement Abdomen: Non-Distended, Obese Extremities: No clubbing, No cyanosis, No Calf Tenderness, - - There is no significant swelling or edema in the patient's right lower extremity. The 2 ulcerations persists on the right anterolateral calf. They appear to be more superficial. They are slightly smaller. Dimensions are documented elsewhere. Mild erythema is noted about each of the 2 ulcerations. Therefore, swab cultures have been obtained for aerobic and anaerobic bacterial growth. Wound Measurements and Assessment WC - Nurse 1 - General Ulcer Measurement Start: 12/31/19 07:58 Freq: Status: Active Protocol: Activity Type Activity Date Activity User E-Sign Co-Sign Detail Recorded Client Recorded Date Recorded By Document 01/14/20 08:05 MARCUS [id number] 01/14/20 08:13 MARCUS 01/14/20 08:05 Wound Center Nurse 1 [Ulcer Assessment] #3 LATERAL RLE -Current Size (cm) - Length 1.8 -Current Size (cm) - Width 2 -Current Size (cm) - Depth 0.2 -Total Square Cm 3.6 -Photo Taken No -Exudate Amt Small -Exudate Type Serosanguineous -Wound Margin Distinct, Outline Attached -Granulation Amt Large (67-100%) -Granulation Quality Red -Necrosis Amt Small (1-33%) -Necrotic Tissue Type Adherent Slough -Structure Exposed N/A -Texture (Ketty-wound Skin Appearance) Scarring -Moisture (Ketty-wound Skin Appearance No Abnormality ) -Color (Ketty-wound Skin Appearance) Hemosiderin Staining -Temperature (Ketty-wound Skin No Abnormality Appearance) (Pt Warm) -Tenderness on Palpation (Ketty-wound No Skin Appearance) -Ulcer Cleansing Rinsed/ Irrigated with Saline -Foul Odor after Cleansing No -Anesthetic Used 4% Lidocaine Solution #2 R Vaz -Current Size (cm) - Length 2.2 -Current Size (cm) - Width 2.3 -Current Size (cm) - Depth 0.2 -Total Square Cm 5.06 -Photo Taken No -Exudate Amt Small -Exudate Type Serosanguineous -Wound Margin Distinct, Outline Attached -Granulation Amt Large (67-100%) -Granulation Quality Red -Necrosis Amt Small (1-33%) -Necrotic Tissue Type Adherent Slough -Structure Exposed N/A -Texture (Ketty-wound Skin Appearance) Scarring -Moisture (Ketty-wound Skin Appearance No Abnormality ) -Color (Ketty-wound Skin Appearance) Hemosiderin Staining -Temperature (Ketty-wound Skin No Abnormality Appearance) (Pt Warm) -Tenderness on Palpation (Ketty-wound No Skin Appearance) -Ulcer Cleansing Wound Cleanser -Foul Odor after Cleansing No -Anesthetic Used 4% Lidocaine Solution [Edema Assessment] -Right Calf (cm) 40 -Right Ankle (cm) 23.5 Musculoskeletal: No Muscle Wasting Neurological: Cranial nerves II-XII grossly intact, Neuro grossly intact Psych/Mental Status: Normal Affect, Appropriate, Alert and oriented to time, place, person, mood and affect Debridement Note Post-Debridement Measurements/Treatment WC - Nurse 2 - General Ulcer CM Notes Start: 12/31/19 07:58 Freq: Status: Active Protocol: Activity Type Activity Date Activity User E-Sign Co-Sign Detail Recorded Client Recorded Date Recorded By Document 12/31/19 11:16 PL [id number] 12/31/19 11:18 PL 12/31/19 11:16 Wound Center Nurse 2 #3 LATERAL RLE -Time 08:17 -Correct Patient Yes -Correct Side, Site, Position Yes -Correct Procedure Yes -Procedure Performed Yes -Type of Procedure Debridement -Clinical Debridement Subcutaneous -Tissue Removed Subcutaneous -Post Debridement (cm) - Length 2 -Post Debridement (cm) - Width 2 -Post Debridement (cm) - Depth 0.2 -Total Square (Post) (cm) 4 -Area of Debridement (cm) - Length 2 -Area of Debridement (cm) - Width 2 -Total Square (Area) (cm) 4 -Tunneling No -Undermining/Tunneling No -Circular Undermining No -Wound/Ulcer Outcome Not Healed -Ulcer Cleansing Rinsed/ Irrigated with Saline -Foul Odor after Cleansing No -Bioengineered Tissue No -Bleeding Controlled with Pressure -Treatment Response Procedure Tolerated Well -Debridement - Subq, 1st 20sq cm Yes #2 R Vaz -Time 08:17 -Correct Patient Yes -Correct Side, Site, Position Yes -Correct Procedure Yes -Procedure Performed Yes -Type of Procedure Debridement -Clinical Debridement Subcutaneous -Tissue Removed Subcutaneous -Post Debridement (cm) - Length 2.7 -Post Debridement (cm) - Width 2.7 -Post Debridement (cm) - Depth 0.2 -Total Square (Post) (cm) 7.29 -Area of Debridement (cm) - Length 2.7 -Area of Debridement (cm) - Width 2.7 -Total Square (Area) (cm) 7.29 -Tunneling No -Undermining/Tunneling No -Circular Undermining No -Wound/Ulcer Outcome Not Healed -Ulcer Cleansing Rinsed/ Irrigated with Saline -Foul Odor after Cleansing No -Bioengineered Tissue No -Bleeding Controlled with Pressure -Treatment Response Procedure Tolerated Well -Debridement - Subq, 1st 20sq cm No Pain Scale: 0-10 Numeric Is Patient Pain Free? Yes WC - Nurse 3 - General Ulcer D/C NN Start: 12/31/19 07:58 Freq: Status: Active Protocol: Activity Type Activity Date Activity User E-Sign Co-Sign Detail Recorded Client Recorded Date Recorded By Document 12/31/19 11:19 PL [id number] 12/31/19 11:21 PL 12/31/19 11:19 Wound Care Nurse 3 #3 LATERAL RLE -Ulcer Cleansing Rinsed/ Irrigated with Saline -Foul Odor after Cleansing No -Primary Dressing Applied Promogran -Primary Dressing Covered/Secured with Dry Gauze, Secured with Tape -Promogran 1 #2 R Vaz -Ulcer Cleansing Rinsed/ Irrigated with Saline -Foul Odor after Cleansing No -Other Dressing Promogran -Primary Dressing Covered/Secured with Dry Gauze, Secured with Tape Pain Scale: 0-10 Numeric Is Patient Pain Free? Yes WC - Visit Discharge Discharge Condition Stable Ambulatory Status Ambulatory Clinical Summary of Care Provided Yes Laterality: Right - Anterolateral calf Type of Debridement: Excisional debridement Anesthesia Used: 5% Lidocaine Gel Depth: Down to and including healthy tissue, in the subcutaneous layer Percentage of wound debrided: 100 Instrument Used: 5mm curette Tissue Removed: Bioburden Severity: Fat Layer Exposed Amount of bleeding with debridement: Mild Bleeding Controlled with: Compression and gauze Patient tolerated procedure well Because of the persisting erythema about the patient's ulcerations, swab cultures have been obtained for aerobic and anaerobic growth. Assessment/Plan Active Problems Traumatic open wound of lower leg (Chronic) Leg swelling (Chronic) Edema of leg (Chronic) Diabetes mellitus (Chronic) Morbid obesity with BMI of 45.0-49.9, adult (Chronic) Chronic wound of extremity (Chronic) Ulcer of calf due to diabetes mellitus (Chronic) Non-pressure chronic ulcer of right calf with fat layer exposed (Chronic) Assessment: This is a 59-year-old female who presented with traumatic wounds on the right lower extremity, of several months duration. The ulceration overlying the right bunion remains completely healed. A noninvasive lower extremity arterial study revealed normal ankle-brachial index on the right, and a normal digital brachial index on the right as well. The ulcerations on the anterolateral aspect of the right calf have shown slight improvement in recent weeks. A battery of diagnostic tests have been recently obtained, with results as follows: Glucose 172, BUN 19, creatinine 0.82, total protein 7.0, albumin 3.8, calcium 9.0, AST 32, alkaline phosphatase 70, ALT 47, total bilirubin 0.40, sodium 136, potassium 4.5, chloride 103, serum prealbumin 31.2, hemoglobin A1c 8.9, white blood count 6.0, hemoglobin 13.2, hematocrit 41.3, platelets 181,000. According to the patient, her blood sugars continue to run around 150 each day, and she indicates that she is consuming a well-balanced and nutritious diet. Plan: Patient has been counseled as to the appropriate foot care necessary in diabetic patients. Patient has been strongly urged to seek evaluation by a licensed mass real estate appraiser, for the fitting of appropriate footwear. Furthermore, frequent inspection of the patient's feet, appropriate toenail trimming by professional, etc., have been recommended. Patient has been advised to optimize her glycemic control. Adequate nutrition has been advised. We are to transition from the use of collagenase Santyl, to the use of Promogran, which will be applied by the patient topically on a daily basis. She has been instructed in the appropriate means of application. Our request for preauthorization for PuraPly has been denied by the patient's insurance company. However, EpiFix has been approved. Patient is to follow-up in 1 week for reevaluation. Given the recurrent infections of the patient's right lower extremity ulcerations, often with different organisms, we requested consultation with the Infectious Disease service, seeking recommendations as to how to avoid these recurrent infections. The patient has been evaluated by Dr. Busby, infectious disease specialist, and his recommendations have been noted. These include recommendations to stop antibiotics and avoid screening cultures. He advised to continue with topical care, and consider the use of a skin substitute. The patient is to continue wearing her graduated compression stockings of 20 to 30 mmHg compression on a daily basis. The patient is to continue elevating her legs as much as possible. She is to avoid prolonged idle sitting. The patient has been encouraged to assure adequate nutrition. Optimizing glycemic control has also been advised. Weight loss has also been recommended. She will follow-up in our clinic in 1 week. We are to have the patient continue showering with Ebony-Hex locally to the wound area on a daily basis in an effort to minimize bacterial growth. The results of the swab culture will be awaited. If positive, the appropriate antibiotic treatment will be implemented. If negative, it is likely that we will proceed with application of EpiFix, which has been approved for use. Influenza vaccine was not administered today. The patient is not a smoker. Patient weighs 265 pounds. She stands 5 feet 4 inches tall. Her BMI is 45.5, which places her in a class III category. Weight loss has been recommended, and collaboration with the patient's primary care physician has been recommended.
[2020-01-21 08:23] VITALS: BP 128/66; PULSE 94; RESP 18; TEMP 36.5; BMI 44.9
--- NOTE | 2020-01-21 08:56 | HP.PCM_ITS ---
(1) Traumatic open wound of lower leg Status: Chronic Current Visit: Yes Qualifiers: Encounter type: subsequent encounter Laterality: right Qualified Code(s): S81.801D - Unspecified open wound, right lower leg, subsequent encounter Code(s): S81.809A - Unspecified open wound, unspecified lower leg, initial encounter (2) Leg swelling Status: Chronic Current Visit: Yes Code(s): M79.89 - Other specified soft tissue disorders (3) Edema of leg Status: Chronic Current Visit: Yes Code(s): R60.0 - Localized edema (4) Diabetes mellitus Status: Chronic Current Visit: Yes Qualifiers: Diabetes mellitus type: type 2 Code(s): E11.9 - Type 2 diabetes mellitus without complications (5) Morbid obesity with BMI of 45.0-49.9, adult Status: Chronic Current Visit: Yes Code(s): E66.01 - Morbid (severe) obesity due to excess calories; Z68.42 - Body mass index (BMI) 45.0-49.9, adult (6) COPD (chronic obstructive pulmonary disease) Status: Chronic Current Visit: No Code(s): J44.9 - Chronic obstructive pulmonary disease, unspecified (7) Coronary artery arteriosclerosis Status: Chronic Current Visit: No Code(s): I25.10 - Atherosclerotic heart disease of [place] coronary artery without angina pectoris (8) Lumbar disc disease with radiculopathy Status: Chronic Current Visit: No Code(s): M51.16 - Intervertebral disc disorders with radiculopathy, lumbar region (9) Chronic wound of extremity Status: Chronic Current Visit: Yes (10) Ulcer of calf due to diabetes mellitus Status: Chronic Current Visit: Yes Code(s): E11.622 - Type 2 diabetes mellitus with other skin ulcer; L97.209 - Non-pressure chronic ulcer of unspecified calf with unspecified severity (11) Non-pressure chronic ulcer of right calf with fat layer exposed Status: Chronic Current Visit: Yes Code(s): L97.212 - Non-pressure chronic ulcer of right calf with fat layer exposed History of Present Illness Date of Service: 01/21/20 Chief Complaint: Chronic open wound of the right lower extremity secondary to diabetes mellitus, Diabetic right foot wound - [place] Grade 1 History of Wound: This is a 59-year-old diabetic female who has been previously treated in our facility for a traumatic wound on the left lower extremity. She presented this time with wounds in her right lower extremity. There are 2 wounds involving the right calf, which were initially traumatic in origin. They are located on the right anterior tibial surface and on the right lateral calf. These occurred due to impact with a car door in December 2018. It is felt, however, that the failure of the patient's wounds to heal is due to her longstanding diabetes mellitus. The patient has been using Collagenase Santyl topically. She also developed a more recent ulceration on the right foot, located overlying a bunion, which has now subsequently healed. According the patient, this occurred as a result of a new pair of sneakers, which she obtained at a retail establishment. The patient is known to be diabetic, and her blood sugars appear to be reasonably well controlled, based upon the patient's account. The previous wound in the left lower extremity has remained healed. The patient has continued to implement conservative treatment measures previously recommended, including leg elevation, avoidance of idle standing and sitting, active lifestyle, attempts at weight loss, and the use of graduated compression stockings on a daily basis, of 20 to 30 mmHg compression. Past Medical History Past Medical History: Chronic Problems Traumatic open wound of lower leg (Chronic) Leg swelling (Chronic) Edema of leg (Chronic) Diabetes mellitus (Chronic) Morbid obesity with BMI of 45.0-49.9, adult (Chronic) COPD (chronic obstructive pulmonary disease) (Chronic) Coronary artery arteriosclerosis (Chronic) Lumbar disc disease with radiculopathy (Chronic) Chronic wound of extremity (Chronic) Ulcer of calf due to diabetes mellitus (Chronic) Non-pressure chronic ulcer of right calf with fat layer exposed (Chronic) Surgical History: - - The patient has a history of coronary artery stent placement. She has undergone open reduction and internal fixation of a left tibia fracture. She underwent right meniscus repair in the past. She is a Ab0. Allergies/Adverse Reactions: Allergies bee venom protein (honey bee) Adverse Reaction (Verified 03/19/19 09:02) Swelling Home Medications: Ambulatory Orders Medication Instructions Recorded Aspirin E.C. [Ecotrin] 81 mg PO DAILY@0800 09/03/13 Hydrocodone/Acetaminophen [Vicodin 1 - 2 tablet PO Q6H PRN PRN 09/03/13 5-300 mg Tablet] Lisinopril 10 mg PO DAILY 09/03/13 Metformin [Metformin HCl] 1,000 mg PO BID 09/03/13 Metoprolol Tartrate 50 mg PO DAILY 09/03/13 Dulaglutide [Trulicity] 0.75 mg SQ 01/02/18 Fluticasone/Vilanterol [Breo 1 each IH 01/02/18 Ellipta 200-25 Mcg INH] Insulin Glargine,Hum.rec.anlog 56 unit BID 01/02/18 [Lantus] Sitagliptin Phosphate [Januvia] 25 mg PO DAILY 01/02/18 Tiotropium [place] [Spiriva] 18 mcg IH 01/02/18 - Family History Paternal - - The patient's father at the age of 78 with history of chronic obstructive pulmonary disease. The patient's mother at the age of 84 with history of chronic obstructive pulmonary disease. Smoking Status: Former smoker Tobacco Use: Non-smoker Review of Systems Constitutional: Denies: Chills, Fever, Weight Change Eyes: Denies: Pain, Vision Change HEENT: Denies: Difficulty Hearing, Difficulty Swallowing, Sinus Congestion Cardiovascular: Denies: Chest Pain, Palpitations Respiratory: Denies: Cough, Shortness of Breath Gastrointestinal: Denies: Diarrhea, Nausea, Vomiting Genitourinary: Denies: Dysuria, Hematuria Endocrine: Denies: Heat/ Cold Intolerance, Polydipsia, Polyuria Hematologic/ Lymphatic: Denies: Easy Bruising, Easy Bleeding - Physical Exam Vital Signs Temp Pulse Resp BP 97.7 F L 94 18 128/66 H 01/21/20 08:23 01/21/20 08:23 01/21/20 08:23 01/21/20 08:23 General: Alert, Oriented x3, Cooperative, No apparent distress, Well developed, Well nourished HEENT: Atraumatic, PERRLA, EOMI, Normocephalic Oral: Moist Mucosa Neck: No JVD Lungs: Normal air movement Abdomen: Non-Distended Extremities: No clubbing, No cyanosis, No edema, No Calf Tenderness, - - There is no significant swelling or edema in the patient's right lower extremity. The clustered wound on the right anterolateral surface of the distal right lower extremity persists. It is little changed in size or appearance. Dimensions are documented elsewhere. There is a small amount of bioburden. There is no sign of infection or cellulitis. The erythema appears to be minimal, and diminished from previous visits. Wound Measurements and Assessment WC - Nurse 1 - General Ulcer Measurement Start: 12/31/19 07:58 Freq: Status: Active Protocol: Activity Type Activity Date Activity User E-Sign Co-Sign Detail Recorded Client Recorded Date Recorded By Document 01/21/20 08:23 DL [id number] 01/21/20 08:30 DL 01/21/20 08:23 Wound Center Nurse 1 [Ulcer Assessment] #3 LATERAL RLE -Current Size (cm) - Length 2 -Current Size (cm) - Width 2.1 -Current Size (cm) - Depth 0.2 -Total Square Cm 4.2 -Photo Taken No -Exudate Amt Small -Exudate Type Serosanguineous -Wound Margin Distinct, Outline Attached -Granulation Amt Medium (34-66%) -Granulation Quality Red -Necrosis Amt Medium (34-66%) -Necrotic Tissue Type Adherent Slough -Structure Exposed N/A -Texture (Ketty-wound Skin Appearance) Scarring -Moisture (Ketty-wound Skin Appearance No Abnormality ) -Color (Ketty-wound Skin Appearance) Erythema,Rubor -Temperature (Ketty-wound Skin No Abnormality Appearance) (Pt Warm) -Tenderness on Palpation (Ketty-wound No Skin Appearance) -Ulcer Cleansing Rinsed/ Irrigated with Saline -Foul Odor after Cleansing No -Anesthetic Used 4% Lidocaine Solution #2 R Vaz -Current Size (cm) - Length 2.4 -Current Size (cm) - Width 2.6 -Current Size (cm) - Depth 0.2 -Total Square Cm 6.24 -Photo Taken No -Exudate Amt Small -Exudate Type Serosanguineous -Wound Margin Distinct, Outline Attached -Granulation Amt Medium (34-66%) -Granulation Quality Red -Necrosis Amt Medium (34-66%) -Necrotic Tissue Type Adherent Slough -Structure Exposed N/A -Texture (Ketty-wound Skin Appearance) Scarring -Moisture (Ketty-wound Skin Appearance No Abnormality ) -Color (Ketty-wound Skin Appearance) Erythema,Rubor -Temperature (Ketty-wound Skin No Abnormality Appearance) (Pt Warm) -Tenderness on Palpation (Ketty-wound No Skin Appearance) -Ulcer Cleansing Rinsed/ Irrigated with Saline -Foul Odor after Cleansing No -Anesthetic Used 4% Lidocaine Solution [Edema Assessment] -Right Calf (cm) 40.1 -Right Ankle (cm) 23.1 Musculoskeletal: No Muscle Wasting Neurological: Cranial nerves II-XII grossly intact, Neuro grossly intact Psych/Mental Status: Normal Affect, Appropriate, Alert and oriented to time, place, person, mood and affect Debridement Note Post-Debridement Measurements/Treatment WC - Nurse 2 - General Ulcer CM Notes Start: 12/31/19 07:58 Freq: Status: Active Protocol: Activity Type Activity Date Activity User E-Sign Co-Sign Detail Recorded Client Recorded Date Recorded By Document 12/31/19 11:16 PL [id number] 12/31/19 11:18 PL Document 01/14/20 12:05 PL [id number] 01/14/20 12:10 PL 12/31/19 01/14/20 11:16 12:05 Wound Center Nurse 2 #3 LATERAL RLE -Time : 08:17 -Correct Patient Yes Yes -Correct Side, Site, Position Yes Yes -Correct Procedure Yes Yes -Procedure Performed Yes Yes -Type of Procedure Debridement Debridement -Clinical Debridement Subcutaneous Subcutaneous -Tissue Removed Subcutaneous Subcutaneous -Post Debridement (cm) - Length 2 1.9 -Post Debridement (cm) - Width 2 2.1 -Post Debridement (cm) - Depth 0.2 0.2 -Total Square (Post) (cm) 4 3.99 -Area of Debridement (cm) - Length 2 1.9 -Area of Debridement (cm) - Width 2 2.1 -Total Square (Area) (cm) 4 3.99 -Tunneling No No -Undermining/Tunneling No No -Circular Undermining No No -Wound/Ulcer Outcome Not Healed Not Healed -Ulcer Cleansing Rinsed/ Irrigated with Saline -Foul Odor after Cleansing No -Bioengineered Tissue No No -Bleeding Controlled with Pressure -Treatment Response Procedure Tolerated Well -Debridement - Subq, 1st 20sq cm Yes Yes #2 R Vaz -Time 08: 08:17 -Correct Patient Yes Yes -Correct Side, Site, Position Yes Yes -Correct Procedure Yes Yes -Procedure Performed Yes Yes -Type of Procedure Debridement Debridement -Clinical Debridement Subcutaneous Subcutaneous -Tissue Removed Subcutaneous Subcutaneous -Post Debridement (cm) - Length 2.7 2.3 -Post Debridement (cm) - Width 2.7 2.4 -Post Debridement (cm) - Depth 0.2 0.2 -Total Square (Post) (cm) 7.29 5.52 -Area of Debridement (cm) - Length 2.7 2.3 -Area of Debridement (cm) - Width 2.7 2.4 -Total Square (Area) (cm) 7.29 5.52 -Tunneling No No -Undermining/Tunneling No No -Circular Undermining No No -Wound/Ulcer Outcome Not Healed Not Healed -Ulcer Cleansing Rinsed/ Rinsed/ Irrigated with Irrigated with Saline Saline -Foul Odor after Cleansing No No -Bioengineered Tissue No No -Bleeding Controlled with Pressure -Treatment Response Procedure Tolerated Well -Debridement - Subq, 1st 20sq cm No No Pain Scale: 0-10 Numeric Is Patient Pain Free? Yes Yes - Nurse 3 - General Ulcer D/C NN Start: 12/31/19 07:58 Freq: Status: Active Protocol: Activity Type Activity Date Activity User E-Sign Co-Sign Detail Recorded Client Recorded Date Recorded By Document 12/31/19 11:19 PL [id number] 12/31/19 11:21 PL Document 01/14/20 12:05 PL [id number] 01/14/20 12:10 PL 12/31/19 01/14/20 11:19 12:05 Wound Care Nurse 3 #3 LATERAL RLE -Ulcer Cleansing Rinsed/ Rinsed/ Irrigated with Irrigated with Saline Saline -Foul Odor after Cleansing No No -Primary Dressing Applied Promogran Promogran -Primary Dressing Covered/Secured with Dry Gauze, Dry Gauze, Secured with Secured with Tape Tape -Promogran 1 1 #2 R Vaz -Ulcer Cleansing Rinsed/ Rinsed/ Irrigated with Irrigated with Saline Saline -Foul Odor after Cleansing No No -Primary Dressing Applied Promogran -Other Dressing Promogran Promogran -Primary Dressing Covered/Secured with Dry Gauze, Dry Gauze, Secured with Secured with Tape Tape -Promogran 0 Pain Scale: 0-10 Numeric Is Patient Pain Free? Yes Yes - Visit Discharge Discharge Condition Stable Stable Ambulatory Status Ambulatory Ambulatory Transportation Private [facility] Clinical Summary of Care Provided Yes Yes Laterality: Right - Anterolateral calf Type of Debridement: Excisional debridement Anesthesia Used: 5% Lidocaine Gel Depth: Down to and including healthy tissue, in the subcutaneous layer Percentage of wound debrided: 100 Instrument Used: 5mm curette Tissue Removed: Bioburden Severity: Fat Layer Exposed Amount of bleeding with debridement: Mild Bleeding Controlled with: Compression and gauze Patient tolerated procedure well Following a routine excisional debridement, an EpiFix allograft was applied. A 4 cm x 4.5 cm meshed allograft was selected. It was fashioned to the appropriate size and shape. It was then applied topically to the wound. Adaptic Touch was then applied, covered with gauze, which was then secured in place using Steri-Strips. The procedure was well-tolerated by the patient. Assessment/Plan Active Problems Traumatic open wound of lower leg (Chronic) Leg swelling (Chronic) Edema of leg (Chronic) Diabetes mellitus (Chronic) Morbid obesity with BMI of 45.0-49.9, adult (Chronic) Chronic wound of extremity (Chronic) Ulcer of calf due to diabetes mellitus (Chronic) Non-pressure chronic ulcer of right calf with fat layer exposed (Chronic) Assessment: This is a 59-year-old female who presented with traumatic wounds on the right lower extremity, of several months duration. The ulceration overlying the right bunion remains completely healed. A noninvasive lower extremity arterial study revealed normal ankle-brachial index on the right, and a normal digital brachial index on the right as well. The ulcerations on the anterolateral aspect of the right calf have shown slight improvement in recent weeks. A battery of diagnostic tests have been recently obtained, with results as follows: Glucose 172, BUN 19, creatinine 0.82, total protein 7.0, albumin 3.8, calcium 9.0, AST 32, alkaline phosphatase 70, ALT 47, total bilirubin 0.40, sodium 136, potassium 4.5, chloride 103, serum prealbumin 31.2, hemoglobin A1c 8.9, white blood count 6.0, hemoglobin 13.2, hematocrit 41.3, platelets 181,000. According to the patient, her blood sugars continue to run around 150 each day, and she indicates that she is consuming a well-balanced and nutritious diet. Plan: Patient has been counseled as to the appropriate foot care necessary in diabetic patients. Patient has been strongly urged to seek evaluation by a sales and in home delivery specialist, for the fitting of appropriate footwear. Furthermore, frequent inspection of the patient's feet, appropriate toenail trimming by professional, etc., have been recommended. Patient has been advised to optimize her glycemic control. Adequate nutrition has been advised. We have applied an Epi-Fix allograft today, for such application, which is to remain in place, undisturbed, until the patient returns in 1 week. The patient is to continue wearing her graduated compression stockings of 20 to 30 mmHg compression on a daily basis. The patient is to continue elevating her legs as much as possible. She is to avoid prolonged idle sitting. The patient has been encouraged to assure adequate nutrition. Optimizing glycemic control has also been advised. Weight loss has also been recommended. She will follow-up in our clinic in 1 week. The patient's recent wound culture was negative. Influenza vaccine was not administered today. The patient is not a smoker. Patient weighs 265 pounds. She stands 5 feet 4 inches tall. Her BMI is 45.5, which places her in a class III category. Weight loss has been recommended, and collaboration with the patient's primary care physician has been recommended.
== END 2020-01-22 23:59 ==
LOC: WC 08:00
PROVIDERS: PCP Nurse Practitioner Primary Care; Referring Provider Surgery; Visit Provider Surgery
DX: E11.622 Type 2 diabetes mellitus with other skin ulcer (principal); L97.212 Non-pressure chronic ulcer of right calf with fat layer exposed; S81.801D Unspecified open wound, right lower leg, subsequent encounter; M79.89 Other specified soft tissue disorders; S81.809A Unspecified open wound, unspecified lower leg, initial encounter; R60.0 Localized edema; E66.01 Morbid (severe) obesity due to excess calories; Z68.42 Body mass index [BMI] 45.0-49.9, adult; J44.9 Chronic obstructive pulmonary disease, unspecified; I25.10 Atherosclerotic heart disease of native coronary artery without angina pectoris; M51.16 Intervertebral disc disorders with radiculopathy, lumbar region; M21.611 Bunion of right foot; Z79.4 Long term (current) use of insulin; Z79.82 Long term (current) use of aspirin; Z87.891 Personal history of nicotine dependence; Z95.5 Presence of coronary angioplasty implant and graft
CPT/HCPCS: 11042; 15271; 87070; 87075; 87205; Q4186

== ENCOUNTER 2020-02-18 08:15 | Outpatient (RCR) | payer OTHER, SELFPAY ==
[2020-01-23 00:36] VITALS: BP 128/66; PULSE 94; RESP 18; TEMP 36.5
[2020-01-28 08:15] VITALS: BP 135/72; PULSE 95; RESP 18; TEMP 36.3; BMI 44.9
--- NOTE | 2020-01-28 08:37 | PCM.WC.HP ---
(1) Traumatic open wound of lower leg Status: Chronic Current Visit: Yes Qualifiers: Encounter type: subsequent encounter Laterality: right Qualified Code(s): S81.801D - Unspecified open wound, right lower leg, subsequent encounter Code(s): S81.809A - Unspecified open wound, unspecified lower leg, initial encounter (2) Leg swelling Status: Chronic Current Visit: Yes Code(s): M79.89 - Other specified soft tissue disorders (3) Edema of leg Status: Chronic Current Visit: Yes Code(s): R60.0 - Localized edema (4) Diabetes mellitus Status: Chronic Current Visit: Yes Qualifiers: Diabetes mellitus type: type 2 Code(s): E11.9 - Type 2 diabetes mellitus without complications (5) Morbid obesity with BMI of 45.0-49.9, adult Status: Chronic Current Visit: Yes Code(s): E66.01 - Morbid (severe) obesity due to excess calories; Z68.42 - Body mass index [BMI] 45.0-49.9, adult (6) COPD (chronic obstructive pulmonary disease) Status: Chronic Current Visit: No Code(s): J44.9 - Chronic obstructive pulmonary disease, unspecified (7) Coronary artery arteriosclerosis Status: Chronic Current Visit: No Code(s): I25.10 - Atherosclerotic heart disease of [place] coronary artery without angina pectoris (8) Diabetic foot wound, Hubbard Grade 1 Status: Resolved Current Visit: No (9) Ulcer of foot due to diabetes Status: Resolved Current Visit: No Code(s): E11.621 - Type 2 diabetes mellitus with foot ulcer; L97.509 - Non-pressure chronic ulcer of other part of unspecified foot with unspecified severity (10) Lumbar disc disease with radiculopathy Status: Chronic Current Visit: No Code(s): M51.16 - Intervertebral disc disorders with radiculopathy, lumbar region (11) Chronic wound of extremity Status: Chronic Current Visit: Yes (12) Ulcer of calf due to diabetes mellitus Status: Chronic Current Visit: Yes Code(s): E11.622 - Type 2 diabetes mellitus with other skin ulcer; L97.209 - Non-pressure chronic ulcer of unspecified calf with unspecified severity (13) Non-pressure chronic ulcer of right calf with fat layer exposed Status: Chronic Current Visit: Yes Code(s): L97.212 - Non-pressure chronic ulcer of right calf with fat layer exposed History of Present Illness Date of Service: 01/28/20 Chief Complaint: Chronic open wound of the right lower extremity secondary to diabetes mellitus, Diabetic right foot wound - Hubbard Grade 1 History of Wound: This is a 59-year-old diabetic female who has been previously treated in our facility for a traumatic wound on the left lower extremity. She presented this time with wounds in her right lower extremity. There are 2 wounds involving the right calf, which were initially traumatic in origin. They are located on the right anterior tibial surface and on the right lateral calf. These occurred due to impact with a car door in December 2018. It is felt, however, that the failure of the patient's wounds to heal is due to her longstanding diabetes mellitus. The patient has been using Collagenase Santyl topically. She also developed a more recent ulceration on the right foot, located overlying a bunion, which has now subsequently healed. According the patient, this occurred as a result of a new pair of sneakers, which she obtained at a retail establishment. The patient is known to be diabetic, and her blood sugars appear to be reasonably well controlled, based upon the patient's account. The previous wound in the left lower extremity has remained healed. The patient has continued to implement conservative treatment measures previously recommended, including leg elevation, avoidance of idle standing and sitting, active lifestyle, attempts at weight loss, and the use of graduated compression stockings on a daily basis, of 20 to 30 mmHg compression. Past Medical History Past Medical History: Chronic Problems Traumatic open wound of lower leg (Chronic) Leg swelling (Chronic) Edema of leg (Chronic) Diabetes mellitus (Chronic) Morbid obesity with BMI of 45.0-49.9, adult (Chronic) COPD (chronic obstructive pulmonary disease) (Chronic) Coronary artery arteriosclerosis (Chronic) Lumbar disc disease with radiculopathy (Chronic) Chronic wound of extremity (Chronic) Ulcer of calf due to diabetes mellitus (Chronic) Non-pressure chronic ulcer of right calf with fat layer exposed (Chronic) Surgical History: - - The patient has a history of coronary artery stent placement. She has undergone open reduction and internal fixation of a left tibia fracture. She underwent right meniscus repair in the past. She is a Ab0. Allergies/Adverse Reactions: Allergies bee venom protein (honey bee) Adverse Reaction (Verified 03/19/19 09:02) Swelling Home Medications: Ambulatory Orders Medication Instructions Recorded Aspirin E.C. [Ecotrin] 81 mg PO DAILY@0800 09/03/13 Hydrocodone/Acetaminophen [Vicodin 1 - 2 tablet PO Q6H PRN PRN 09/03/13 5-300 mg Tablet] Lisinopril 10 mg PO DAILY 09/03/13 Metformin [Metformin HCl] 1,000 mg PO BID 09/03/13 Metoprolol Tartrate 50 mg PO DAILY 09/03/13 Dulaglutide [Trulicity] 0.75 mg SQ 01/02/18 Fluticasone/Vilanterol [Breo 1 each IH 01/02/18 Ellipta 200-25 Mcg INH] Insulin Glargine,Hum.rec.anlog 56 unit BID 01/02/18 [Lantus] Sitagliptin Phosphate [Januvia] 25 mg PO DAILY 01/02/18 Tiotropium [place] [Spiriva] 18 mcg IH 01/02/18 - Family History Paternal - - The patient's father at the age of 78 with history of chronic obstructive pulmonary disease. The patient's mother at the age of 84 with history of chronic obstructive pulmonary disease. Smoking Status: Former smoker Tobacco Use: Non-smoker Review of Systems Constitutional: Denies: Chills, Fever, Weight Change Eyes: Denies: Pain, Vision Change HEENT: Denies: Difficulty Hearing, Difficulty Swallowing, Sinus Congestion Cardiovascular: Denies: Chest Pain, Palpitations Respiratory: Denies: Cough, Shortness of Breath Gastrointestinal: Denies: Diarrhea, Nausea, Vomiting Genitourinary: Denies: Dysuria, Hematuria Endocrine: Denies: Heat/ Cold Intolerance, Polydipsia, Polyuria Hematologic/ Lymphatic: Denies: Easy Bruising, Easy Bleeding - Physical Exam Vital Signs Temp Pulse Resp BP 97.3 F L 95 18 135/72 H 01/28/20 08:15 01/28/20 08:15 01/28/20 08:15 01/28/20 08:15 General: Alert, Oriented x3, Cooperative, No apparent distress, Well developed, Well nourished, - - The patient appears morbidly obese. HEENT: Atraumatic, PERRLA, EOMI, Normocephalic Oral: Moist Mucosa Neck: No JVD Lungs: Normal air movement Abdomen: Non-Distended, Obese Extremities: No clubbing, No cyanosis, No edema, No Calf Tenderness, - - The wounds on the right lateral calf persists. There is visual improvement. The size of the wounds has diminished. Dimensions are documented elsewhere. There is no sign of infection or cellulitis. There is no significant periwound erythema. The base of the wounds is pink and healthy in appearance, with granulation tissue, and some evidence of epithelialization. There is a small amount of bioburden. Skin: No rashes Wound Measurements and Assessment WC - Nurse 1 - General Ulcer Measurement Start: 01/28/20 08:15 Freq: Status: Active Protocol: Activity Type Activity Date Activity User E-Sign Co-Sign Detail Recorded Client Recorded Date Recorded By Document 01/28/20 08:15 MS [id number] 01/28/20 08:21 MS 01/28/20 08:15 Wound Center Nurse 1 [Ulcer Assessment] #3 LATERAL RLE -Current Size (cm) - Length 1.8 -Current Size (cm) - Width 1.8 -Current Size (cm) - Depth 0.2 -Total Square Cm 3.24 -Photo Taken No -Epithelialization None Present -Undermining/Tunneling No -Exudate Amt Small -Exudate Type Serosanguineous -Wound Margin Distinct, Outline Attached -Granulation Amt Large (67-100%) -Granulation Quality Red -Slough/Fibrin Yes -Necrosis Amt Small (1-33%) -Necrotic Tissue Type Adherent Slough -Structure Exposed N/A -Texture (Ketty-wound Skin Appearance) Scarring -Moisture (Ketty-wound Skin Appearance No Abnormality ) -Color (Ketty-wound Skin Appearance) Hemosiderin Staining -Temperature (Ketty-wound Skin No Abnormality Appearance) (Pt Warm) -Tenderness on Palpation (Ketty-wound No Skin Appearance) -Ulcer Cleansing Wound Cleanser -Foul Odor after Cleansing No -Anesthetic Used 4% Lidocaine Solution #2 R Vaz -Current Size (cm) - Length 2.3 -Current Size (cm) - Width 2.5 -Current Size (cm) - Depth 0.2 -Total Square Cm 5.75 -Photo Taken No -Exudate Amt Small -Exudate Type Serosanguineous -Wound Margin Distinct, Outline Attached -Granulation Amt Large (67-100%) -Granulation Quality Red -Necrosis Amt Small (1-33%) -Structure Exposed N/A -Texture (Ketty-wound Skin Appearance) Scarring -Moisture (Ketty-wound Skin Appearance No Abnormality ) -Color (Ketty-wound Skin Appearance) No Abnormality -Temperature (Ketty-wound Skin No Abnormality Appearance) (Pt Warm) -Tenderness on Palpation (Ketty-wound No Skin Appearance) -Ulcer Cleansing Wound Cleanser -Foul Odor after Cleansing No -Anesthetic Used 4% Lidocaine Solution [Edema Assessment] -Right Calf (cm) 40 -Right Ankle (cm) 22.8 Musculoskeletal: No Muscle Wasting Neurological: Cranial nerves II-XII grossly intact, Neuro grossly intact Psych/Mental Status: Normal Affect, Appropriate, Alert and oriented to time, place, person, mood and affect Debridement Note Laterality: Right - Lateral calf Type of Debridement: Excisional debridement Anesthesia Used: 5% Lidocaine Gel Depth: Down to and including healthy tissue, in the subcutaneous layer Percentage of wound debrided: 100 Instrument Used: 7mm curette Tissue Removed: Bioburden Severity: Fat Layer Exposed Amount of bleeding with debridement: Mild Bleeding Controlled with: Compression and gauze Following a routine excisional debridement, which was well-tolerated by the patient, a 4 cm x 4.5 cm meshed EpiFix allograft was applied topically to the wounds on the right lateral calf. Adaptic touch was then placed for anchoring purposes. Gauze was applied, and the site was secured using Steri-Strips. The procedure was well-tolerated. Assessment/Plan Active Problems Traumatic open wound of lower leg (Chronic) Leg swelling (Chronic) Edema of leg (Chronic) Diabetes mellitus (Chronic) Morbid obesity with BMI of 45.0-49.9, adult (Chronic) Chronic wound of extremity (Chronic) Ulcer of calf due to diabetes mellitus (Chronic) Non-pressure chronic ulcer of right calf with fat layer exposed (Chronic) Assessment: This is a 59-year-old female who presented with traumatic wounds on the right lower extremity, of several months duration. The ulceration overlying the right bunion remains completely healed. A noninvasive lower extremity arterial study revealed normal ankle-brachial index on the right, and a normal digital brachial index on the right as well. The ulcerations on the anterolateral aspect of the right calf have shown slight improvement in recent weeks. A battery of diagnostic tests have been recently obtained, with results as follows: Glucose 172, BUN 19, creatinine 0.82, total protein 7.0, albumin 3.8, calcium 9.0, AST 32, alkaline phosphatase 70, ALT 47, total bilirubin 0.40, sodium 136, potassium 4.5, chloride 103, serum prealbumin 31.2, hemoglobin A1c 8.9, white blood count 6.0, hemoglobin 13.2, hematocrit 41.3, platelets 181,000. According to the patient, her blood sugars continue to run around 150 each day, and she indicates that she is consuming a well-balanced and nutritious diet. Plan: Patient has been counseled as to the appropriate foot care necessary in diabetic patients. Patient has been strongly urged to seek evaluation by a medical office representative, for the fitting of appropriate footwear. Furthermore, frequent inspection of the patient's feet, appropriate toenail trimming by professional, etc., have been recommended. Patient has been advised to optimize her glycemic control. Adequate nutrition has been advised. We have applied an Epi-Fix allograft today, the second such application, which is to remain in place, undisturbed, until the patient returns in 1 week. The patient is to continue wearing her graduated compression stockings of 20 to 30 mmHg compression on a daily basis. The patient is to continue elevating her legs as much as possible. She is to avoid prolonged idle sitting. The patient has been encouraged to assure adequate nutrition. Optimizing glycemic control has also been advised. Weight loss has also been recommended. She will follow-up in our clinic in 1 week. The patient's recent wound culture was negative. Influenza vaccine was not administered today. The patient is not a smoker. Patient weighs 265 pounds. She stands 5 feet 4 inches tall. Her BMI is 45.5, which places her in a class III category. Weight loss has been recommended, and collaboration with the patient's primary care physician has been recommended.
[2020-02-04 08:02] VITALS: BP 143/79; PULSE 106; RESP 16; TEMP 36.8; BMI 44.9
[2020-02-04 08:59] VITALS: BP 119/66; PULSE 104; RESP 18; TEMP 36.8
--- NOTE | 2020-02-04 13:20 | HP.PCM_ITS ---
(1) Traumatic open wound of lower leg Status: Chronic Qualifiers: Encounter type: subsequent encounter Laterality: right Qualified Code(s): S81.801D - Unspecified open wound, right lower leg, subsequent encounter Code(s): S81.809A - Unspecified open wound, unspecified lower leg, initial encounter (2) Leg swelling Status: Chronic Code(s): M79.89 - Other specified soft tissue disorders (3) Edema of leg Status: Chronic Code(s): R60.0 - Localized edema (4) Diabetes mellitus Status: Chronic Qualifiers: Diabetes mellitus type: type 2 Code(s): E11.9 - Type 2 diabetes mellitus without complications (5) Morbid obesity with BMI of 45.0-49.9, adult Status: Chronic Code(s): E66.01 - Morbid (severe) obesity due to excess calories; Z68.42 - Body mass index [BMI] 45.0-49.9, adult (6) COPD (chronic obstructive pulmonary disease) Status: Chronic Code(s): J44.9 - Chronic obstructive pulmonary disease, unspecified (7) Coronary artery arteriosclerosis Status: Chronic Code(s): I25.10 - Atherosclerotic heart disease of [place] coronary artery without angina pectoris (8) Lumbar disc disease with radiculopathy Status: Chronic Code(s): M51.16 - Intervertebral disc disorders with radiculopathy, lumbar region (9) Chronic wound of extremity Status: Chronic (10) Ulcer of calf due to diabetes mellitus Status: Chronic Code(s): E11.622 - Type 2 diabetes mellitus with other skin ulcer; L97.209 - Non-pressure chronic ulcer of unspecified calf with unspecified severity (11) Non-pressure chronic ulcer of right calf with fat layer exposed Status: Chronic Code(s): L97.212 - Non-pressure chronic ulcer of right calf with fat layer exposed History of Present Illness Date of Service: 02/04/20 Chief Complaint: Chronic open wound of the right lower extremity secondary to diabetes mellitus, Diabetic right foot wound - [place] Grade 1 History of Wound: This is a 59-year-old diabetic female who has been previously treated in our facility for a traumatic wound on the left lower extremity. She presented this time with wounds in her right lower extremity. There are 2 wounds involving the right calf, which were initially traumatic in origin. They are located on the right anterior tibial surface and on the right lateral calf. These occurred due to impact with a car door in December 2018. It is felt, however, that the failure of the patient's wounds to heal is due to her longstanding diabetes mellitus. The patient has been using Collagenase Santyl topically. She also developed a more recent ulceration on the right foot, located overlying a bunion, which has now subsequently healed. According the patient, this occurred as a result of a new pair of sneakers, which she obtained at a retail establishment. The patient is known to be diabetic, and her blood sugars appear to be reasonably well controlled, based upon the patient's account. The previous wound in the left lower extremity has remained healed. The patient has continued to implement conservative treatment measures previously recommended, including leg elevation, avoidance of idle standing and sitting, active lifestyle, attempts at weight loss, and the use of graduated compression stockings on a daily basis, of 20 to 30 mmHg compression. Past Medical History Past Medical History: Chronic Problems Traumatic open wound of lower leg (Chronic) Leg swelling (Chronic) Edema of leg (Chronic) Diabetes mellitus (Chronic) Morbid obesity with BMI of 45.0-49.9, adult (Chronic) COPD (chronic obstructive pulmonary disease) (Chronic) Coronary artery arteriosclerosis (Chronic) Lumbar disc disease with radiculopathy (Chronic) Chronic wound of extremity (Chronic) Ulcer of calf due to diabetes mellitus (Chronic) Non-pressure chronic ulcer of right calf with fat layer exposed (Chronic) Surgical History: - - The patient has a history of coronary artery stent placement. She has undergone open reduction and internal fixation of a left tibia fracture. She underwent right meniscus repair in the past. She is a Ab0. Allergies/Adverse Reactions: Allergies bee venom protein (honey bee) Adverse Reaction (Verified 03/19/19 09:02) Swelling Home Medications: Ambulatory Orders Medication Instructions Recorded Aspirin E.C. [Ecotrin] 81 mg PO DAILY@0800 09/03/13 Hydrocodone/Acetaminophen [Vicodin 1 - 2 tablet PO Q6H PRN PRN 09/03/13 5-300 mg Tablet] Lisinopril 10 mg PO DAILY 09/03/13 Metformin [Metformin HCl] 1,000 mg PO BID 09/03/13 Metoprolol Tartrate 50 mg PO DAILY 09/03/13 Dulaglutide [Trulicity] 0.75 mg SQ 01/02/18 Fluticasone/Vilanterol [Breo 1 each IH 01/02/18 Ellipta 200-25 Mcg INH] Insulin Glargine,Hum.rec.anlog 56 unit BID 01/02/18 [Lantus] Sitagliptin Phosphate [Januvia] 25 mg PO DAILY 01/02/18 Tiotropium [place] [Spiriva] 18 mcg IH 01/02/18 - Family History Paternal - - The patient's father at the age of 78 with history of chronic obstructive pulmonary disease. The patient's mother at the age of 84 with history of chronic obstructive pulmonary disease. Smoking Status: Former smoker Tobacco Use: Non-smoker Review of Systems Constitutional: Denies: Chills, Fever, Weight Change Eyes: Denies: Pain, Vision Change HEENT: Denies: Difficulty Hearing, Difficulty Swallowing, Sinus Congestion Cardiovascular: Denies: Chest Pain, Palpitations Respiratory: Denies: Cough, Shortness of Breath Gastrointestinal: Denies: Diarrhea, Nausea, Vomiting Genitourinary: Denies: Dysuria, Hematuria Endocrine: Denies: Heat/ Cold Intolerance, Polydipsia, Polyuria Hematologic/ Lymphatic: Denies: Easy Bruising, Easy Bleeding - Physical Exam Vital Signs Temp Pulse Resp BP 98.3 F 104 H 18 119/66 02/04/20 08:59 02/04/20 08:59 02/04/20 08:59 02/04/20 08:59 General: Alert, Oriented x3, Cooperative, No apparent distress, Well developed, Well nourished HEENT: Atraumatic, PERRLA, EOMI, Normocephalic Oral: Moist Mucosa Neck: No JVD Lungs: Normal air movement Abdomen: Non-Distended Extremities: No clubbing, No cyanosis, No edema, No Calf Tenderness, - - There is no significant swelling or edema in the patient's right lower extremity. The wounds on the right anterolateral calf persist. They are dual. They appear to have diminished somewhat in size. Dimensions are documented elsewhere. There appears to be less depth. There is evidence of periph Skin: No rashes Wound Measurements and Assessment WC - Nurse 1 - General Ulcer Measurement Start: 01/28/20 08:15 Freq: Status: Active Protocol: Activity Type Activity Date Activity User E-Sign Co-Sign Detail Recorded Client Recorded Date Recorded By Document 02/04/20 08:02 [facility] [id number] 02/04/20 08:09 [facility] 02/04/20 08:02 Wound Center Nurse 1 [Ulcer Assessment] #3 LATERAL RLE -Combined with other wound No -Current Size (cm) - Length 1.8 -Current Size (cm) - Width 1.5 -Current Size (cm) - Depth 0.2 -Total Square Cm 2.70 -Photo Taken No -Epithelialization None Present -Tunneling No -Undermining/Tunneling No -Circular Undermining No -Exudate Amt Medium -Exudate Type Serosanguineous -Wound Margin Distinct, Outline Attached -Granulation Amt Medium (34-66%) -Granulation Quality Red -Slough/Fibrin Yes -Necrosis Amt Medium (34-66%) -Necrotic Tissue Type Adherent Slough -Texture (Ketty-wound Skin Appearance) Assessed, Scarring -Moisture (Ketty-wound Skin Appearance Assessed ) -Color (Ketty-wound Skin Appearance) Assessed -Temperature (Ketty-wound Skin No Abnormality Appearance) (Pt Warm) -Tenderness on Palpation (Ketty-wound No Skin Appearance) -Ulcer Cleansing soapy water -Foul Odor after Cleansing No -Anesthetic Used 4% Lidocaine Solution #2 R Vaz -Combined with other wound No -Current Size (cm) - Length 2 -Current Size (cm) - Width 2.1 -Current Size (cm) - Depth 0.2 -Total Square Cm 4.2 -Photo Taken No -Epithelialization None Present -Tunneling No -Undermining/Tunneling No -Circular Undermining No -Exudate Amt Medium -Exudate Type Serosanguineous -Wound Margin Distinct, Outline Attached -Granulation Amt Medium (34-66%) -Granulation Quality Red -Slough/Fibrin Yes -Necrosis Amt Medium (34-66%) -Necrotic Tissue Type Adherent Slough -Texture (Ketty-wound Skin Appearance) Assessed, Scarring -Moisture (Ketty-wound Skin Appearance Assessed ) -Color (Ketty-wound Skin Appearance) Assessed -Temperature (Ketty-wound Skin No Abnormality Appearance) (Pt Warm) -Tenderness on Palpation (Ketty-wound No Skin Appearance) -Ulcer Cleansing soapy water -Foul Odor after Cleansing No -Anesthetic Used 4% Lidocaine Solution [Edema Assessment] -Lower Limb Edema Present Yes -Right Calf (cm) 41 -Right Ankle (cm) 24.1 WC - Nurse 3 - General Ulcer D/C NN Start: 01/28/20 08:15 Freq: Status: Active Protocol: Activity Type Activity Date Activity User E-Sign Co-Sign Detail Recorded Client Recorded Date Recorded By Document 02/04/20 08:59 DL [id number] 02/04/20 09:01 DL 02/04/20 08:59 Wound Care Nurse 3 [Wound Dressing] #3 LATERAL RLE -Foul Odor after Cleansing No -Other Dressing Epifix -Other Covering Veil/steri strips #2 R Vaz -Foul Odor after Cleansing No -Other Dressing Epifix -Other Covering Veil/steri strips [Compression Applied] Right -Other tubigrips [Post Procedure Tolerated] -Treatment Response Procedure Tolerated Well Vital Signs [Temperature Protocol: VS] -Temperature (97.8 F-99.1 F) 98.3 F -Temperature Source Temporal [Pulse] -Pulse Rate (60-100) 104 H -Pulse Location Monitor [Respirations] -Respiratory Rate (12-18) 18 -Respiratory rate source Observation [Blood Pressure] -Blood Pressure (90/60-120/80) 119/66 -Blood Pressure Mean (mm Hg) 83 -Source Monitor WC - Visit Discharge [Visit Discharge Information] -Discharge Condition Stable -Ambulatory Status Ambulatory -Transportation Private Auto Musculoskeletal: No Muscle Wasting Neurological: Cranial nerves II-XII grossly intact, Neuro grossly intact Psych/Mental Status: Normal Affect, Appropriate, Alert and oriented to time, place, person, mood and affect Debridement Note Post-Debridement Measurements/Treatment WC - Nurse 2 - General Ulcer CM Notes Start: 01/28/20 08:15 Freq: Status: Active Protocol: Activity Type Activity Date Activity User E-Sign Co-Sign Detail Recorded Client Recorded Date Recorded By Document 01/28/20 17:19 PL [id number] 01/28/20 17:27 PL 01/28/20 17:19 Wound Center Nurse 2 #3 LATERAL RLE -Time 08:24 -Correct Patient Yes -Correct Side, Site, Position Yes -Correct Procedure Yes -Procedure Performed Yes -Type of Procedure Debridement -Clinical Debridement Subcutaneous -Tissue Removed Subcutaneous -Post Debridement (cm) - Length 1.8 -Post Debridement (cm) - Width 1.8 -Post Debridement (cm) - Depth 0.2 -Total Square (Post) (cm) 3.24 -Area of Debridement (cm) - Length 1.8 -Area of Debridement (cm) - Width 1.8 -Total Square (Area) (cm) 3.24 -Tunneling No -Undermining/Tunneling No -Circular Undermining No -Wound/Ulcer Outcome Not Healed -Ulcer Cleansing Rinsed/ Irrigated with Saline -Foul Odor after Cleansing No -Bioengineered Tissue No -Debridement - Subq, 1st 20sq cm No #2 R Vaz -Time 08:24 -Correct Patient Yes -Correct Side, Site, Position Yes -Correct Procedure Yes -Procedure Performed Yes -Type of Procedure Debridement -Clinical Debridement Subcutaneous -Tissue Removed Subcutaneous -Post Debridement (cm) - Length 2.3 -Post Debridement (cm) - Width 2.5 -Post Debridement (cm) - Depth 0.2 -Total Square (Post) (cm) 5.75 -Area of Debridement (cm) - Length 2.3 -Area of Debridement (cm) - Width 2.5 -Total Square (Area) (cm) 5.75 -Tunneling No -Undermining/Tunneling No -Circular Undermining No -Wound/Ulcer Outcome Not Healed -Ulcer Cleansing Rinsed/ Irrigated with Saline -Foul Odor after Cleansing No -Bioengineered Tissue Yes -Type of Bioengineered Tissue Epifix Mesh -Expiration Date 09/22/24 -Product Lot Number [id number] -Percent Used 100 -Saline Lot Number [id number] -Bleeding Controlled with Pressure -Debridement - Subq, 1st 20sq cm No -Apply Skin Sub - 1st 25 sq cm - Legs 1 -Epifix Mesh (per sq cm) 18 Pain Scale: 0-10 Numeric Is Patient Pain Free? Yes WC - Nurse 3 - General Ulcer D/C NN Start: 01/28/20 08:15 Freq: Status: Active Protocol: Activity Type Activity Date Activity User E-Sign Co-Sign Detail Recorded Client Recorded Date Recorded By Document 01/28/20 17:19 PL [id number] 01/28/20 17:27 PL Document 02/04/20 08:59 DL [id number] 02/04/20 09:01 DL 01/28/20 02/04/20 17:19 08:59 Is Patient Pain Free? Yes Wound Care Nurse 3 #3 LATERAL RLE -Ulcer Cleansing Rinsed/ Irrigated with Saline -Foul Odor after Cleansing No No -Other Dressing Epifix -Primary Dressing Covered/Secured with Dry Gauze, Secured with Tape -Other Covering Veil/steri strips #2 R Vaz -Ulcer Cleansing Rinsed/ Irrigated with Saline -Foul Odor after Cleansing No No -Other Dressing Epifix -Primary Dressing Covered/Secured with Dry Gauze, Secured with Tape -Other Covering Veil/steri strips Right -Tubular Bandage Single Layer -Size of Tubigrip Used Size C -Size C ($) 1 -Other tubigrips Left -Tubular Bandage Single Layer -Size of Tubigrip Used Size C -Size C ($) 1 Treatment Response Procedure Tolerated Well Vital Signs Temperature (97.8 F-99.1 F) 98.3 F Temperature Source Temporal Pulse Rate (60-100) 104 H Pulse Location Monitor Respiratory Rate (12-18) 18 Respiratory rate source Observation Blood Pressure (90/60-120/80) 119/66 Blood Pressure Mean (mm Hg) 83 Source Monitor WC - Visit Discharge Discharge Condition Stable Stable Ambulatory Status Ambulatory Ambulatory Transportation Private Auto Private Auto Clinical Summary of Care Provided Yes Laterality: Right - Anterolateral calf Type of Debridement: Excisional debridement Anesthesia Used: 5% Lidocaine Gel Depth: Down to and including healthy tissue, in the subcutaneous layer Percentage of wound debrided: 100 Instrument Used: 5mm curette Tissue Removed: Bioburden Severity: Fat Layer Exposed Amount of bleeding with debridement: Mild Bleeding Controlled with: Compression and gauze Patient tolerated procedure well Following a routine excisional debridement, a meshed 4 cm x 4.5 cm EpiFix allograft was selected for placement on the 2 adjacent wounds. Upon removal from its sterile packaging, the allograft was fashioned to the appropriate size and shape, it was applied topically to each of the 2 adjacent wounds. Adaptic Touch was then placed, and each site was covered with gauze, which was anchored using Steri-Strips. The procedure was well-tolerated by the patient. This represents the 3rd such allograft application. Assessment/Plan Assessment: This is a 59-year-old female who presented with traumatic wounds on the right lower extremity, of several months duration. The ulceration overlying the right bunion remains completely healed. A noninvasive lower extremity arterial study revealed normal ankle-brachial index on the right, and a normal digital brachial index on the right as well. The ulcerations on the anterolateral aspect of the right calf have shown slight improvement in recent weeks. A battery of diagnostic tests have been recently obtained, with results as follows: Glucose 172, BUN 19, creatinine 0.82, total protein 7.0, albumin 3.8, calcium 9.0, AST 32, alkaline phosphatase 70, ALT 47, total bilirubin 0.40, sodium 136, potassium 4.5, chloride 103, serum prealbumin 31.2, hemoglobin A1c 8.9, white blood count 6.0, hemoglobin 13.2, hematocrit 41.3, platelets 181,000. According to the patient, her blood sugars continue to run around 150 each day, and she indicates that she is consuming a well-balanced and nutritious diet. Plan: Patient has been counseled as to the appropriate foot care necessary in diabetic patients. Patient has been strongly urged to seek evaluation by a melt superintendant, for the fitting of appropriate footwear. Furthermore, frequent inspection of the patient's feet, appropriate toenail trimming by professional, etc., have been recommended. Patient has been advised to optimize her glycemic control. Adequate nutrition has been advised. We have applied an EpiFix allograft today, the third such application, which is to remain in place, undisturbed, until the patient returns in 1 week. The patient is to continue wearing her graduated compression stockings of 20 to 30 mmHg compression on a daily basis. The patient is to continue elevating her legs as much as possible. She is to avoid prolonged idle sitting. The patient has been encouraged to assure adequate nutrition. Optimizing glycemic control has also been advised. Weight loss has also been recommended. She will follow-up in our clinic in 1 week. The patient's recent wound culture was negative. Influenza vaccine was not administered today. The patient is not a smoker. Patient weighs 265 randal nds. She stands 5 feet 4 inches tall. Her BMI is 45.5, which places her in a class III category. Weight loss has been recommended, and collaboration with the patient's primary care physician has been recommended.
[2020-02-11 08:03] VITALS: BP 147/84; PULSE 116; RESP 20; TEMP 36.8; BMI 44.9
--- NOTE | 2020-02-11 08:33 | PCM.WC.HP ---
(1) Traumatic open wound of lower leg Status: Chronic Qualifiers: Encounter type: subsequent encounter Laterality: right Qualified Code(s): S81.801D - Unspecified open wound, right lower leg, subsequent encounter Code(s): S81.809A - Unspecified open wound, unspecified lower leg, initial encounter (2) Leg swelling Status: Chronic Code(s): M79.89 - Other specified soft tissue disorders (3) Edema of leg Status: Chronic Code(s): R60.0 - Localized edema (4) Diabetes mellitus Status: Chronic Qualifiers: Diabetes mellitus type: type 2 Code(s): E11.9 - Type 2 diabetes mellitus without complications (5) Morbid obesity with BMI of 45.0-49.9, adult Status: Chronic Code(s): E66.01 - Morbid (severe) obesity due to excess calories; Z68.42 - Body mass index [BMI] 45.0-49.9, adult (6) COPD (chronic obstructive pulmonary disease) Status: Chronic Code(s): J44.9 - Chronic obstructive pulmonary disease, unspecified (7) Coronary artery arteriosclerosis Status: Chronic Code(s): I25.10 - Atherosclerotic heart disease of [place] coronary artery without angina pectoris (8) Lumbar disc disease with radiculopathy Status: Chronic Code(s): M51.16 - Intervertebral disc disorders with radiculopathy, lumbar region (9) Chronic wound of extremity Status: Chronic (10) Ulcer of calf due to diabetes mellitus Status: Chronic Code(s): E11.622 - Type 2 diabetes mellitus with other skin ulcer; L97.209 - Non-pressure chronic ulcer of unspecified calf with unspecified severity (11) Non-pressure chronic ulcer of right calf with fat layer exposed Status: Chronic Code(s): L97.212 - Non-pressure chronic ulcer of right calf with fat layer exposed History of Present Illness Date of Service: 02/11/20 Chief Complaint: Chronic open wound of the right lower extremity secondary to diabetes mellitus, Diabetic right foot wound - [place] Grade 1 History of Wound: This is a 59-year-old diabetic female who has been previously treated in our facility for a traumatic wound on the left lower extremity. She presented this time with wounds in her right lower extremity. There are 2 wounds involving the right calf, which were initially traumatic in origin. They are located on the right anterior tibial surface and on the right lateral calf. These occurred due to impact with a car door in December 2018. It is felt, however, that the failure of the patient's wounds to heal is due to her longstanding diabetes mellitus. The patient has been using Collagenase Santyl topically. She also developed a more recent ulceration on the right foot, located overlying a bunion, which has now subsequently healed. According the patient, this occurred as a result of a new pair of sneakers, which she obtained at a retail establishment. The patient is known to be diabetic, and her blood sugars appear to be reasonably well controlled, based upon the patient's account. The previous wound in the left lower extremity has remained healed. The patient has continued to implement conservative treatment measures previously recommended, including leg elevation, avoidance of idle standing and sitting, active lifestyle, attempts at weight loss, and the use of graduated compression stockings on a daily basis, of 20 to 30 mmHg compression. Past Medical History Past Medical History: Chronic Problems Traumatic open wound of lower leg (Chronic) Leg swelling (Chronic) Edema of leg (Chronic) Diabetes mellitus (Chronic) Morbid obesity with BMI of 45.0-49.9, adult (Chronic) COPD (chronic obstructive pulmonary disease) (Chronic) Coronary artery arteriosclerosis (Chronic) Lumbar disc disease with radiculopathy (Chronic) Chronic wound of extremity (Chronic) Ulcer of calf due to diabetes mellitus (Chronic) Non-pressure chronic ulcer of right calf with fat layer exposed (Chronic) Surgical History: - - The patient has a history of coronary artery stent placement. She has undergone open reduction and internal fixation of a left tibia fracture. She underwent right meniscus repair in the past. She is a Ab0. Allergies/Adverse Reactions: Allergies bee venom protein (honey bee) Adverse Reaction (Verified 03/19/19 09:02) Swelling Home Medications: Ambulatory Orders Medication Instructions Recorded Aspirin E.C. [Ecotrin] 81 mg PO DAILY@0800 09/03/13 Hydrocodone/Acetaminophen [Vicodin 1 - 2 tablet PO Q6H PRN PRN 09/03/13 5-300 mg Tablet] Lisinopril 10 mg PO DAILY 09/03/13 Metformin [Metformin HCl] 1,000 mg PO BID 09/03/13 Metoprolol Tartrate 50 mg PO DAILY 09/03/13 Dulaglutide [Trulicity] 0.75 mg SQ 01/02/18 Fluticasone/Vilanterol [Breo 1 each IH 01/02/18 Ellipta 200-25 Mcg INH] Insulin Glargine,Hum.rec.anlog 56 unit BID 01/02/18 [Lantus] Sitagliptin Phosphate [Januvia] 25 mg PO DAILY 01/02/18 Tiotropium [place] [Spiriva] 18 mcg IH 01/02/18 - Family History Paternal - - The patient's father at the age of 78 with history of chronic obstructive pulmonary disease. The patient's mother at the age of 84 with history of chronic obstructive pulmonary disease. Smoking Status: Former smoker Tobacco Use: Non-smoker Review of Systems Constitutional: Denies: Chills, Fever, Weight Change Eyes: Denies: Pain, Vision Change HEENT: Denies: Difficulty Hearing, Difficulty Swallowing, Sinus Congestion Cardiovascular: Denies: Chest Pain, Palpitations Respiratory: Denies: Cough, Shortness of Breath Gastrointestinal: Denies: Diarrhea, Nausea, Vomiting Genitourinary: Denies: Dysuria, Hematuria Endocrine: Denies: Heat/ Cold Intolerance, Polydipsia, Polyuria Hematologic/ Lymphatic: Denies: Easy Bruising, Easy Bleeding - Physical Exam Vital Signs Temp Pulse Resp BP 98.3 F 116 H 20 H 147/84 H 02/11/20 08:03 02/11/20 08:03 02/11/20 08:03 02/11/20 08:03 General: Alert, Oriented x3, Cooperative, No apparent distress, Well developed, Well nourished HEENT: Atraumatic, PERRLA, EOMI, Normocephalic Oral: Moist Mucosa Neck: No JVD Lungs: Normal air movement Abdomen: Non-Distended, Obese Extremities: No clubbing, No cyanosis, No edema, No Calf Tenderness Addt'l Extremities Findings: The wounds on the right calf, dual in nature, persist. However, they appear smaller in size. They are quite superficial. Dimensions are documented elsewhere. There is no undermining. There is a small amount of bioburden. There is no sign of infection or cellulitis. The erythema, previously noted, is now completely abated. There is evidence of peripheral epithelialization. Skin: No rashes Wound Measurements and Assessment WC - Nurse 1 - General Ulcer Measurement Start: 01/28/20 08:15 Freq: Status: Active Protocol: Activity Type Activity Date Activity User E-Sign Co-Sign Detail Recorded Client Recorded Date Recorded By Document 02/11/20 08:03 MARCUS [id number] 02/11/20 08:13 MARCUS 02/11/20 08:03 Wound Center Nurse 1 [Ulcer Assessment] #3 LATERAL RLE -Current Size (cm) - Length 1.4 -Current Size (cm) - Width 1.2 -Current Size (cm) - Depth 0.2 -Total Square Cm 1.68 -Photo Taken No -Exudate Amt Small -Exudate Type Serosanguineous -Wound Margin Distinct, Outline Attached -Granulation Amt Medium (34-66%) -Granulation Quality Red -Necrosis Amt Medium (34-66%) -Necrotic Tissue Type Adherent Slough -Structure Exposed N/A -Texture (Ketty-wound Skin Appearance) Scarring -Moisture (Ketty-wound Skin Appearance No Abnormality ) -Color (Ketty-wound Skin Appearance) No Abnormality -Temperature (Ketty-wound Skin No Abnormality Appearance) (Pt Warm) -Tenderness on Palpation (Ketty-wound No Skin Appearance) -Ulcer Cleansing Wound Cleanser -Foul Odor after Cleansing No -Anesthetic Used 4% Lidocaine Solution,5% Lidocaine Gel #2 R Vaz -Current Size (cm) - Length 1.6 -Current Size (cm) - Width 2.2 -Current Size (cm) - Depth 0.1 -Total Square Cm 3.52 -Photo Taken No -Exudate Amt Small -Exudate Type Serosanguineous -Wound Margin Distinct, Outline Attached -Granulation Amt Large (67-100%) -Granulation Quality Red -Necrosis Amt Small (1-33%) -Necrotic Tissue Type Adherent Slough -Structure Exposed N/A -Texture (Ketty-wound Skin Appearance) Scarring -Moisture (Ketty-wound Skin Appearance No Abnormality ) -Color (Ketty-wound Skin Appearance) No Abnormality -Temperature (Ketty-wound Skin No Abnormality Appearance) (Pt Warm) -Tenderness on Palpation (Ketty-wound No Skin Appearance) -Ulcer Cleansing Wound Cleanser -Foul Odor after Cleansing No -Anesthetic Used 4% Lidocaine Solution,5% Lidocaine Gel [Edema Assessment] -Right Calf (cm) 39.5 -Right Ankle (cm) 22.3 Musculoskeletal: No Muscle Wasting Neurological: Cranial nerves II-XII grossly intact, Neuro grossly intact Psych/Mental Status: Normal Affect, Appropriate, Alert and oriented to time, place, person, mood and affect Debridement Note Post-Debridement Measurements/Treatment WC - Nurse 2 - General Ulcer CM Notes Start: 01/28/20 08:15 Freq: Status: Active Protocol: Activity Type Activity Date Activity User E-Sign Co-Sign Detail Recorded Client Recorded Date Recorded By Document 01/28/20 17:19 PL [id number] 01/28/20 17:27 PL Document 02/04/20 17:20 PL [id number] 02/04/20 17:24 PL 01/28/20 02/04/20 17:19 17:20 Wound Center Nurse 2 #3 LATERAL RLE -Time 08:24 08:40 -Correct Patient Yes Yes -Correct Side, Site, Position Yes Yes -Correct Procedure Yes Yes -Procedure Performed Yes Yes -Type of Procedure Debridement Debridement -Clinical Debridement Subcutaneous Subcutaneous -Tissue Removed Subcutaneous Subcutaneous -Post Debridement (cm) - Length 1.8 1.8 -Post Debridement (cm) - Width 1.8 1.5 -Post Debridement (cm) - Depth 0.2 0.2 -Total Square (Post) (cm) 3.24 2.70 -Area of Debridement (cm) - Length 1.8 1.8 -Area of Debridement (cm) - Width 1.8 1.5 -Total Square (Area) (cm) 3.24 2.70 -Tunneling No No -Undermining/Tunneling No No -Circular Undermining No No -Wound/Ulcer Outcome Not Healed Not Healed -Ulcer Cleansing Rinsed/ Irrigated with Saline -Foul Odor after Cleansing No -Bioengineered Tissue No No -Debridement - Subq, 1st 20sq cm No No #2 R Vaz -Time 08:24 08:43 -Correct Patient Yes Yes -Correct Side, Site, Position Yes Yes -Correct Procedure Yes Yes -Procedure Performed Yes Yes -Type of Procedure Debridement Debridement -Clinical Debridement Subcutaneous Subcutaneous -Tissue Removed Subcutaneous Subcutaneous -Post Debridement (cm) - Length 2.3 2.0 -Post Debridement (cm) - Width 2.5 2.1 -Post Debridement (cm) - Depth 0.2 0.2 -Total Square (Post) (cm) 5.75 4.20 -Area of Debridement (cm) - Length 2.3 2.0 -Area of Debridement (cm) - Width 2.5 2.1 -Total Square (Area) (cm) 5.75 4.20 -Tunneling No No -Undermining/Tunneling No No -Circular Undermining No No -Wound/Ulcer Outcome Not Healed Not Healed -Ulcer Cleansing Rinsed/ Rinsed/ Irrigated with Irrigated with Saline Saline -Foul Odor after Cleansing No No -Bioengineered Tissue Yes Yes -Type of Bioengineered Tissue Epifix Mesh Epifix Mesh -Expiration Date 09/22/24 09/22/24 -Product Lot Number [id number] -Percent Used 100 100 -Saline Lot Number [id number] -Bleeding Controlled with Pressure Pressure -Treatment Response Procedure Tolerated Well -Debridement - Subq, 1st 20sq cm No No -Apply Skin Sub - 1st 25 sq cm - Legs 1 1 -Epifix Mesh (per sq cm) 18 11 Pain Scale: 0-10 Numeric Is Patient Pain Free? Yes Yes WC - Nurse 3 - General Ulcer D/C NN Start: 01/28/20 08:15 Freq: Status: Active Protocol: Activity Type Activity Date Activity User E-Sign Co-Sign Detail Recorded Client Recorded Date Recorded By Document 01/28/20 17:19 PL [id number] 01/28/20 17:27 PL Document 02/04/20 08:59 DL [id number] 02/04/20 09:01 DL 01/28/20 02/04/20 17:19 08:59 Is Patient Pain Free? Yes Wound Care Nurse 3 #3 LATERAL RLE -Ulcer Cleansing Rinsed/ Irrigated with Saline -Foul Odor after Cleansing No No -Other Dressing Epifix -Primary Dressing Covered/Secured with Dry Gauze, Secured with Tape -Other Covering Veil/steri strips #2 R Vaz -Ulcer Cleansing Rinsed/ Irrigated with Saline -Foul Odor after Cleansing No No -Other Dressing Epifix -Primary Dressing Covered/Secured with Dry Gauze, Secured with Tape -Other Covering Veil/steri strips Right -Tubular Bandage Single Layer -Size of Tubigrip Used Size C -Size C ($) 1 -Other tubigrips Left -Tubular Bandage Single Layer -Size of Tubigrip Used Size C -Size C ($) 1 Treatment Response Procedure Tolerated Well Vital Signs Temperature (97.8 F-99.1 F) 98.3 F Temperature Source Temporal Pulse Rate (60-100) 104 H Pulse Location Monitor Respiratory Rate (12-18) 18 Respiratory rate source Observation Blood Pressure (90/60-120/80) 119/66 Blood Pressure Mean (mm Hg) 83 Source Monitor WC - Visit Discharge Discharge Condition Stable Stable Ambulatory Status Ambulatory Ambulatory Transportation Private Auto Private Auto Clinical Summary of Care Provided Yes Laterality: Right - Lateral calf Type of Debridement: Excisional debridement Anesthesia Used: 5% Lidocaine Gel Depth: Down to and including healthy tissue, in the subcutaneous layer Percentage of wound debrided: 100 Instrument Used: 5mm curette Tissue Removed: Bioburden Severity: Fat Layer Exposed Amount of bleeding with debridement: Mild Bleeding Controlled with: Compression and gauze Patient tolerated procedure well Following a routine excisional debridement, which was well-tolerated by the patient, a 4 cm x 4.5 cm meshed EpiFix allograft was applied topically. This represents the 4th such application. Upon removal from its sterile packaging, the allograft was cut and fashioned to the appropriate size and shape. It was then placed topically on each of the 2 adjacent wounds in the appropriate orientation. Adaptic Touch and gauze were then applied, and anchored in place using Steri-Strips. The procedure was well-tolerated by the patient. Assessment/Plan Active Problems Traumatic open wound of lower leg (Chronic) Leg swelling (Chronic) Edema of leg (Chronic) Diabetes mellitus (Chronic) Morbid obesity with BMI of 45.0-49.9, adult (Chronic) COPD (chronic obstructive pulmonary disease) (Chronic) Coronary artery arteriosclerosis (Chronic) Lumbar disc disease with radiculopathy (Chronic) Chronic wound of extremity (Chronic) Ulcer of calf due to diabetes mellitus (Chronic) Non-pressure chronic ulcer of right calf with fat layer exposed (Chronic) Assessment: This is a 59-year-old female who presented with traumatic wounds on the right lower extremity, of several months duration. The ulceration overlying the right bunion remains completely healed. A noninvasive lower extremity arterial study revealed normal ankle-brachial index on the right, and a normal digital brachial index on the right as well. The ulcerations on the anterolateral aspect of the right calf have shown slight improvement in recent weeks. A battery of diagnostic tests have been recently obtained, with results as follows: Glucose 172, BUN 19, creatinine 0.82, total protein 7.0, albumin 3.8, calcium 9.0, AST 32, alkaline phosphatase 70, ALT 47, total bilirubin 0.40, sodium 136, potassium 4.5, chloride 103, serum prealbumin 31.2, hemoglobin A1c 8.9, white blood count 6.0, hemoglobin 13.2, hematocrit 41.3, platelets 181,000. According to the patient, her blood sugars continue to run around 150 each day, and she indicates that she is consuming a well-balanced and nutritious diet. At this juncture, there has been improvement in recent weeks, apparently due to the use of an allograft. Plan: Patient has been counseled as to the appropriate foot care necessary in diabetic patients. Patient has been strongly urged to seek evaluation by a food service substitute, for the fitting of appropriate footwear. Furthermore, frequent inspection of the patient's feet, appropriate toenail trimming by professional, etc., have been recommended. Patient has been advised to optimize her glycemic control. Adequate nutrition has been advised. We have applied an EpiFix allograft today, the 4th such application, which is to remain in place, undisturbed, until the patient returns in 1 week. The patient is to continue wearing her graduated compression stockings of 20 to 30 mmHg compression on a daily basis. The patient is to continue elevating her legs as much as possible. She is to avoid prolonged idle sitting. The patient has been encouraged to assure adequate nutrition. Optimizing glycemic control has also been advised. Weight loss has also been recommended. She will follow-up in our clinic in 1 week. The patient's recent wound culture was negative. Influenza vaccine was not administered today. The patient is not a smoker. Patient weighs 265 pounds. She stands 5 feet 4 inches tall. Her BMI is 45.5, which places her in a class III category. Weight loss has been recommended, and collaboration with the patient's primary care physician has been recommended.
[2020-02-18 08:11] VITALS: BP 122/76; PULSE 93; RESP 18; TEMP 36.4; BMI 44.9
--- NOTE | 2020-02-18 08:44 | HP.PCM_ITS ---
(1) Traumatic open wound of lower leg Status: Chronic Qualifiers: Encounter type: subsequent encounter Laterality: right Qualified Code(s): S81.801D - Unspecified open wound, right lower leg, subsequent encounter Code(s): S81.809A - Unspecified open wound, unspecified lower leg, initial encounter (2) Leg swelling Status: Chronic Code(s): M79.89 - Other specified soft tissue disorders (3) Edema of leg Status: Chronic Code(s): R60.0 - Localized edema (4) Diabetes mellitus Status: Chronic Qualifiers: Diabetes mellitus type: type 2 Code(s): E11.9 - Type 2 diabetes mellitus without complications (5) Morbid obesity with BMI of 45.0-49.9, adult Status: Chronic Code(s): E66.01 - Morbid (severe) obesity due to excess calories; Z68.42 - Body mass index [BMI] 45.0-49.9, adult (6) COPD (chronic obstructive pulmonary disease) Status: Chronic Code(s): J44.9 - Chronic obstructive pulmonary disease, unspecified (7) Coronary artery arteriosclerosis Status: Chronic Code(s): I25.10 - Atherosclerotic heart disease of [place] coronary artery without angina pectoris (8) Lumbar disc disease with radiculopathy Status: Chronic Code(s): M51.16 - Intervertebral disc disorders with radiculopathy, lumbar region (9) Chronic wound of extremity Status: Chronic (10) Ulcer of calf due to diabetes mellitus Status: Chronic Code(s): E11.622 - Type 2 diabetes mellitus with other skin ulcer; L97.209 - Non-pressure chronic ulcer of unspecified calf with unspecified severity (11) Non-pressure chronic ulcer of right calf with fat layer exposed Status: Chronic Code(s): L97.212 - Non-pressure chronic ulcer of right calf with fat layer exposed History of Present Illness Date of Service: 02/18/20 Chief Complaint: Chronic open wound of the right lower extremity secondary to diabetes mellitus, Diabetic right foot wound - [place] [employer] 1 History of Wound: This is a 59-year-old diabetic female who has been previously treated in our facility for a traumatic wound on the left lower extremity. She presented this time with wounds in her right lower extremity. There are 2 wounds involving the right calf, which were initially traumatic in origin. They are located on the right anterior tibial surface and on the right lateral calf. These occurred due to impact with a car door in December 2018. It is felt, however, that the failure of the patient's wounds to heal is due to her longstanding diabetes mellitus. The patient has been using Collagenase Santyl topically. She also developed a more recent ulceration on the right foot, located overlying a bunion, which has now subsequently healed. According the patient, this occurred as a result of a new pair of sneakers, which she obtained at a retail establishment. The patient is known to be diabetic, and her blood sugars appear to be reasonably well controlled, based upon the patient's account. The previous wound in the left lower extremity has remained healed. The patient has continued to implement conservative treatment measures previously recommended, including leg elevation, avoidance of idle standing and sitting, active lifestyle, attempts at weight loss, and the use of graduated compression stockings on a daily basis, of 20 to 30 mmHg compression. Past Medical History Past Medical History: Chronic Problems Traumatic open wound of lower leg (Chronic) Leg swelling (Chronic) Edema of leg (Chronic) Diabetes mellitus (Chronic) Morbid obesity with BMI of 45.0-49.9, adult (Chronic) COPD (chronic obstructive pulmonary disease) (Chronic) Coronary artery arteriosclerosis (Chronic) Lumbar disc disease with radiculopathy (Chronic) Chronic wound of extremity (Chronic) Ulcer of calf due to diabetes mellitus (Chronic) Non-pressure chronic ulcer of right calf with fat layer exposed (Chronic) Surgical History: - - The patient has a history of coronary artery stent placement. She has undergone open reduction and internal fixation of a left tibia fracture. She underwent right meniscus repair in the past. She is a Ab0. Allergies/Adverse Reactions: Allergies bee venom protein (honey bee) Adverse Reaction (Verified 03/19/19 09:02) Swelling Home Medications: Ambulatory Orders Medication Instructions Recorded Aspirin E.C. [Ecotrin] 81 mg PO DAILY@0800 09/03/13 Hydrocodone/Acetaminophen [Vicodin 1 - 2 tablet PO Q6H PRN PRN 09/03/13 5-300 mg Tablet] Lisinopril 10 mg PO DAILY 09/03/13 Metformin [Metformin HCl] 1,000 mg PO BID 09/03/13 Metoprolol Tartrate 50 mg PO DAILY 09/03/13 Dulaglutide [Trulicity] 0.75 mg SQ 01/02/18 Fluticasone/Vilanterol [Breo 1 each IH 01/02/18 Ellipta 200-25 Mcg INH] Insulin Glargine,Hum.rec.anlog 56 unit BID 01/02/18 [Lantus] Sitagliptin Phosphate [Januvia] 25 mg PO DAILY 01/02/18 Tiotropium [place] [Spiriva] 18 mcg IH 01/02/18 - Family History Paternal - - The patient's father at the age of 78 with history of chronic obstructive pulmonary disease. The patient's mother at the age of 84 with history of chronic obstructive pulmonary disease. Smoking Status: Former smoker Tobacco Use: Non-smoker Review of Systems Constitutional: Denies: Chills, Fever, Weight Change Eyes: Denies: Pain, Vision Change HEENT: Denies: Difficulty Hearing, Difficulty Swallowing, Sinus Congestion Cardiovascular: Denies: Chest Pain, Palpitations Respiratory: Denies: Cough, Shortness of Breath Gastrointestinal: Denies: Diarrhea, Nausea, Vomiting Genitourinary: Denies: Dysuria, Hematuria Endocrine: Denies: Heat/ Cold Intolerance, Polydipsia, Polyuria Hematologic/ Lymphatic: Denies: Easy Bruising, Easy Bleeding - Physical Exam Vital Signs Temp Pulse Resp BP 97.6 F L 93 18 122/76 H 02/18/20 08:11 02/18/20 08:11 02/18/20 08:11 02/18/20 08:11 General: Alert, Oriented x3, Cooperative, No apparent distress, Well developed, Well nourished HEENT: Atraumatic, PERRLA, EOMI, Normocephalic Oral: Moist Mucosa Neck: No JVD Lungs: Normal air movement Abdomen: Non-Distended, Obese Extremities: No clubbing, No cyanosis, No edema, No Calf Tenderness Addt'l Wound Findings: There are 2 wounds which persist on the lateral aspect of the right calf. They are close in proximity to each other. Each wound is pink and healthy, with no signs of infection or cellulitis. Dimensions are documented elsewhere. There has been significant decrease in size of each wound since the patient's prior visit, 1 week ago. There is a small amount of bioburden. Skin: No rashes Wound Measurements and Assessment WC - Nurse 1 - General Ulcer Measurement Start: 01/28/20 08:15 Freq: Status: Active Protocol: Activity Type Activity Date Activity User E-Sign Co-Sign Detail Recorded Client Recorded Date Recorded By Document 02/18/20 08:11 MARCUS [id number] 02/18/20 08:20 MARCUS 02/18/20 08:11 Wound Center Nurse 1 [Ulcer Assessment] #3 LATERAL RLE -Current Size (cm) - Length 1.1 -Current Size (cm) - Width 0.9 -Current Size (cm) - Depth 0.2 -Total Square Cm 0.99 -Photo Taken No -Exudate Amt Small -Exudate Type Serosanguineous -Wound Margin Distinct, Outline Attached -Granulation Amt Large (67-100%) -Granulation Quality Red -Necrosis Amt Small (1-33%) -Necrotic Tissue Type Adherent Slough -Structure Exposed N/A -Texture (Ketty-wound Skin Appearance) Scarring -Moisture (Ketty-wound Skin Appearance No Abnormality ) -Color (Ketty-wound Skin Appearance) No Abnormality -Temperature (Ketty-wound Skin No Abnormality Appearance) (Pt Warm) -Tenderness on Palpation (Ketty-wound No Skin Appearance) -Ulcer Cleansing Wound Cleanser -Foul Odor after Cleansing No -Anesthetic Used 4% Lidocaine Solution #2 R Vaz -Current Size (cm) - Length 1.2 -Current Size (cm) - Width 2 -Current Size (cm) - Depth 0.2 -Total Square Cm 2.4 -Photo Taken No -Exudate Amt Small -Exudate Type Serosanguineous -Wound Margin Distinct, Outline Attached -Granulation Amt Large (67-100%) -Granulation Quality Red -Necrosis Amt Small (1-33%) -Necrotic Tissue Type Adherent Slough -Structure Exposed N/A -Texture (Ketty-wound Skin Appearance) Scarring -Moisture (Ketty-wound Skin Appearance No Abnormality ) -Color (Ketty-wound Skin Appearance) No Abnormality -Temperature (Ketty-wound Skin No Abnormality Appearance) (Pt Warm) -Tenderness on Palpation (Ketty-wound No Skin Appearance) -Ulcer Cleansing Wound Cleanser -Foul Odor after Cleansing No -Anesthetic Used 4% Lidocaine Solution [Edema Assessment] -Right Calf (cm) 40.2 -Right Ankle (cm) 22.5 Musculoskeletal: No Muscle Wasting Neurological: Cranial nerves II-XII grossly intact, Neuro grossly intact Psych/Mental Status: Normal Affect, Appropriate, Alert and oriented to time, place, person, mood and affect Debridement Note Post-Debridement Measurements/Treatment WC - Nurse 2 - General Ulcer CM Notes Start: 01/28/20 08:15 Freq: Status: Active Protocol: Activity Type Activity Date Activity User E-Sign Co-Sign Detail Recorded Client Recorded Date Recorded By Document 01/28/20 17:19 PL [id number] 01/28/20 17:27 PL Document 02/04/20 17:20 PL [id number] 02/04/20 17:24 PL Document 02/11/20 12:56 PL [id number] 02/11/20 13:01 PL 01/28/20 02/04/20 02/11/20 17:19 17:20 12:56 Wound Center Nurse 2 #3 LATERAL RLE -Time 08:24 08:40 08:19 -Correct Patient Yes Yes Yes -Correct Side, Site, Position Yes Yes Yes -Correct Procedure Yes Yes Yes -Procedure Performed Yes Yes Yes -Type of Procedure Debridement Debridement Debridement -Clinical Debridement Subcutaneous Subcutaneous Subcutaneous -Tissue Removed Subcutaneous Subcutaneous Subcutaneous -Post Debridement (cm) - Length 1.8 1.8 1 -Post Debridement (cm) - Width 1.8 1.5 0.5 -Post Debridement (cm) - Depth 0.2 0.2 0.1 -Total Square (Post) (cm) 3.24 2.70 0.5 -Area of Debridement (cm) - Length 1.8 1.8 1 -Area of Debridement (cm) - Width 1.8 1.5 0.5 -Total Square (Area) (cm) 3.24 2.70 0.5 -Tunneling No No No -Undermining/Tunneling No No No -Circular Undermining No No No -Wound/Ulcer Outcome Not Healed Not Healed Not Healed -Ulcer Cleansing Rinsed/ Rinsed/ Irrigated with Irrigated with Saline Saline -Foul Odor after Cleansing No No -Bioengineered Tissue No No No -Debridement - Subq, 1st 20sq cm No No No #2 R Vaz -Time 08:24 08:43 08:20 -Correct Patient Yes Yes Yes -Correct Side, Site, Position Yes Yes Yes -Correct Procedure Yes Yes Yes -Procedure Performed Yes Yes Yes -Type of Procedure Debridement Debridement Debridement -Clinical Debridement Subcutaneous Subcutaneous Subcutaneous -Tissue Removed Subcutaneous Subcutaneous Subcutaneous -Post Debridement (cm) - Length 2.3 2.0 1.0 -Post Debridement (cm) - Width 2.5 2.1 1.5 -Post Debridement (cm) - Depth 0.2 0.2 0.1 -Total Square (Post) (cm) 5.75 4.20 1.50 -Area of Debridement (cm) - Length 2.3 2.0 1.0 -Area of Debridement (cm) - Width 2.5 2.1 1.5 -Total Square (Area) (cm) 5.75 4.20 1.50 -Tunneling No No No -Undermining/Tunneling No No No -Circular Undermining No No No -Wound/Ulcer Outcome Not Healed Not Healed Not Healed -Ulcer Cleansing Rinsed/ Rinsed/ Rinsed/ Irrigated with Irrigated with Irrigated with Saline Saline Saline -Foul Odor after Cleansing No No No -Bioengineered Tissue Yes Yes Yes -Type of Bioengineered Tissue Epifix Mesh Epifix Mesh Epifix Mesh -Expiration Date 09/22/24 09/22/24 09/22/24 -Product Lot Number [id number] -Percent Used 100 100 100 -Saline Lot Number [id number] -Bleeding Controlled with Pressure Pressure Pressure -Treatment Response Procedure Tolerated Well -Debridement - Subq, 1st 20sq cm No No No -Apply Skin Sub - 1st 25 sq cm - Legs 1 1 1 -Epifix Mesh (per sq cm) 18 11 11 Pain Scale: 0-10 Numeric Is Patient Pain Free? Yes Yes Yes - Nurse 3 - General Ulcer D/C NN Start: 01/28/20 08:15 Freq: Status: Active Protocol: Activity Type Activity Date Activity User E-Sign Co-Sign Detail Recorded Client Recorded Date Recorded By Document 01/28/20 17:19 PL [id number] 01/28/20 17:27 PL Document 02/04/20 08:59 DL [id number] 02/04/20 09:01 DL Document 02/11/20 08:41 DL [id number] 02/11/20 08:43 DL 01/28/20 02/04/20 02/11/20 17:19 08:59 08:41 Pain Scale: 0-10 Numeric Is Patient Pain Free? Yes Yes Wound Care Nurse 3 #3 LATERAL RLE -Ulcer Cleansing Rinsed/ Irrigated with Saline -Foul Odor after Cleansing No No No -Primary Dressing Applied NonAdherent Contact Layer -Other Dressing Epifix epifix -Primary Dressing Covered/Secured with Dry Gauze, Dry Gauze, Secured with Secured with Tape Tape -Other Covering Veil/steri strips #2 R Vaz -Ulcer Cleansing Rinsed/ Irrigated with Saline -Foul Odor after Cleansing No No No -Primary Dressing Applied NonAdherent Contact Layer -Other Dressing Epifix epifix -Primary Dressing Covered/Secured with Dry Gauze, Dry Gauze, Secured with Secured with Tape Tape -Other Covering Veil/steri strips Right -Tubular Bandage Single Layer -Size of Tubigrip Used Size C -Size C ($) 1 -Other tubigrips tubigrip Left -Tubular Bandage Single Layer -Size of Tubigrip Used Size C -Size C ($) 1 Treatment Response Procedure Tolerated Well Vital Signs Temperature (97.8 F-99.1 F) 98.3 F Temperature Source Temporal Pulse Rate (60-100) 104 H Pulse Location Monitor Respiratory Rate (12-18) 18 Respiratory rate source Observation Blood Pressure (90/60-120/80) 119/66 Blood Pressure Mean (mm Hg) 83 Source Monitor WC - Visit Discharge Discharge Condition Stable Stable Stable Ambulatory Status Ambulatory Ambulatory Ambulatory Transportation Private Auto Private Auto Private Auto Clinical Summary of Care Provided Yes Laterality: Right - Lateral calf Type of Debridement: Excisional debridement Anesthesia Used: 5% Lidocaine Gel Depth: Down to and including healthy tissue, in the subcutaneous layer Percentage of wound debrided: 100 Instrument Used: 5mm curette Tissue Removed: Bioburden Severity: Fat Layer Exposed Amount of bleeding with debridement: Mild Bleeding Controlled with: Compression and gauze Following a routine excisional debridement, which was well-tolerated, an EpiFix allograft was selected for placement. A 4 cm x 4.5 cm meshed allograft was selected. This represents the fifth such allograft application to the right lower extremity wounds. Upon removal from its sterile packaging, the allograft was cut and fashioned to the appropriate size and shape. It was applied topically to each of the 2 adjacent wounds on the right lateral calf. Adaptic was then placed, followed by gauze, and the entire site was secured using Steri- Strips. The procedure was well-tolerated by the patient. Assessment/Plan Active Problems Traumatic open wound of lower leg (Chronic) Leg swelling (Chronic) Edema of leg (Chronic) Diabetes mellitus (Chronic) Morbid obesity with BMI of 45.0-49.9, adult (Chronic) COPD (chronic obstructive pulmonary disease) (Chronic) Coronary artery arteriosclerosis (Chronic) Lumbar disc disease with radiculopathy (Chronic) Chronic wound of extremity (Chronic) Ulcer of calf due to diabetes mellitus (Chronic) Non-pressure chronic ulcer of right calf with fat layer exposed (Chronic) Assessment: This is a 59-year-old female who presented with traumatic wounds on the right lower extremity, of several months duration. The ulceration overlying the right bunion remains completely healed. A noninvasive lower extremity arterial study revealed normal ankle-brachial index on the right, and a normal digital brachial index on the right as well. The ulcerations on the anterolateral aspect of the right calf have shown slight improvement in recent weeks. A battery of diagnostic tests have been recently obtained, with results as follows: Glucose 172, BUN 19, creatinine 0.82, total protein 7.0, albumin 3.8, calcium 9.0, AST 32, alkaline phosphatase 70, ALT 47, total bilirubin 0.40, sodium 136, potassium 4.5, chloride 103, serum prealbumin 31.2, hemoglobin A1c 8.9, white blood count 6.0, hemoglobin 13.2, hematocrit 41.3, platelets 181,000. According to the patient, her blood sugars continue to run around 150 each day, and she indicates that she is consuming a well-balanced and nutritious diet. At this juncture, there has been improvement in recent weeks, apparently due to the use of an allograft. Plan: Patient has been counseled as to the appropriate foot care necessary in diabetic patients. Patient has been strongly urged to seek evaluation by a continuous pillowcase cutter, for the fitting of appropriate footwear. Furthermore, frequent inspection of the patient's feet, appropriate toenail trimming by professional, etc., have been recommended. Patient has been advised to optimize her glycemic control. Adequate nutrition has been advised. We have applied an EpiFix allograft today, the 5th such application, which is to remain in place, undisturbed, until the patient returns in 1 week. The patient is to continue wearing her graduated compression stockings of 20 to 30 mmHg compression on a daily basis. The patient is to continue elevating her legs as much as possible. She is to avoid prolonged idle sitting. The patient has been encouraged to assure adequate nutrition. Optimizing glycemic control has also been advised. Weight loss has also been recommended. She will follow-up in our clinic in 1 week. The patient's recent wound culture was negative. Influenza vaccine was not administered today. The patient is not a smoker. Patient weighs 265 pounds. She stands 5 feet 4 inches tall. Her BMI is 45.5, which places her in a class III category. Weight loss has been recommended, and collaboration with the patient's primary care physician has been recommended.
[2020-02-18 08:50] VITALS: BP 103/66; PULSE 86
== END 2020-02-22 23:59 ==
LOC: WC 08:15
PROVIDERS: PCP Nurse Practitioner Primary Care; Referring Provider Surgery; Visit Provider Surgery
DX: E11.622 Type 2 diabetes mellitus with other skin ulcer (principal); L97.212 Non-pressure chronic ulcer of right calf with fat layer exposed; R60.0 Localized edema; E66.01 Morbid (severe) obesity due to excess calories; Z68.42 Body mass index [BMI] 45.0-49.9, adult; M79.89 Other specified soft tissue disorders; J44.9 Chronic obstructive pulmonary disease, unspecified; I25.10 Atherosclerotic heart disease of native coronary artery without angina pectoris; M51.16 Intervertebral disc disorders with radiculopathy, lumbar region; Z87.891 Personal history of nicotine dependence; Z79.899 Other long term (current) drug therapy; Z79.4 Long term (current) use of insulin; Z79.82 Long term (current) use of aspirin
CPT/HCPCS: 15271; Q4186

== ENCOUNTER 2020-03-17 08:00 | Outpatient (RCR) | payer OTHER, SELFPAY ==
[2020-02-23 00:23] VITALS: BP 103/66; PULSE 86; RESP 18; TEMP 36.4
[2020-02-25 08:14] VITALS: BP 137/80; PULSE 92; TEMP 35.9; BMI 44.9
--- NOTE | 2020-02-25 08:54 | HP.PCM_ITS ---
(1) Traumatic open wound of lower leg Status: Chronic Qualifiers: Encounter type: subsequent encounter Laterality: right Qualified Code(s): S81.801D - Unspecified open wound, right lower leg, subsequent encounter Code(s): S81.809A - Unspecified open wound, unspecified lower leg, initial encounter (2) Leg swelling Status: Chronic Code(s): M79.89 - Other specified soft tissue disorders (3) Edema of leg Status: Chronic Code(s): R60.0 - Localized edema (4) Diabetes mellitus Status: Chronic Qualifiers: Diabetes mellitus type: type 2 Code(s): E11.9 - Type 2 diabetes mellitus without complications (5) Morbid obesity with BMI of 45.0-49.9, adult Status: Chronic Code(s): E66.01 - Morbid (severe) obesity due to excess calories; Z68.42 - Body mass index [BMI] 45.0-49.9, adult (6) COPD (chronic obstructive pulmonary disease) Status: Chronic Code(s): J44.9 - Chronic obstructive pulmonary disease, unspecified (7) Coronary artery arteriosclerosis Status: Chronic Code(s): I25.10 - Atherosclerotic heart disease of [place] coronary artery without angina pectoris (8) Lumbar disc disease with radiculopathy Status: Chronic Code(s): M51.16 - Intervertebral disc disorders with radiculopathy, lumbar region (9) Chronic wound of extremity Status: Chronic (10) Ulcer of calf due to diabetes mellitus Status: Chronic Code(s): E11.622 - Type 2 diabetes mellitus with other skin ulcer; L97.209 - Non-pressure chronic ulcer of unspecified calf with unspecified severity (11) Non-pressure chronic ulcer of right calf with fat layer exposed Status: Chronic Code(s): L97.212 - Non-pressure chronic ulcer of right calf with fat layer exposed History of Present Illness Date of Service: 02/25/20 Chief Complaint: Chronic open wound of the right lower extremity secondary to diabetes mellitus, Diabetic right foot wound - [place] Grade 1 History of Wound: This is a 59-year-old diabetic female who has been previously treated in our facility for a traumatic wound on the left lower extremity. She presented this time with wounds in her right lower extremity. There are 2 wounds involving the right calf, which were initially traumatic in origin. They are located on the right anterior tibial surface and on the right lateral calf. These occurred due to impact with a car door in December 2018. It is felt, however, that the failure of the patient's wounds to heal is due to her longstanding diabetes mellitus. The patient has been using Collagenase Santyl topically. She also developed a more recent ulceration on the right foot, located overlying a bunion, which has now subsequently healed. According the patient, this occurred as a result of a new pair of sneakers, which she obtained at a retail establishment. The patient is known to be diabetic, and her blood sugars appear to be reasonably well controlled, based upon the patient's account. The previous wound in the left lower extremity has remained healed. The patient has continued to implement conservative treatment measures previously recommended, including leg elevation, avoidance of idle standing and sitting, active lifestyle, attempts at weight loss, and the use of graduated compression stockings on a daily basis, of 20 to 30 mmHg compression. Past Medical History Past Medical History: Chronic Problems Traumatic open wound of lower leg (Chronic) Leg swelling (Chronic) Edema of leg (Chronic) Diabetes mellitus (Chronic) Morbid obesity with BMI of 45.0-49.9, adult (Chronic) COPD (chronic obstructive pulmonary disease) (Chronic) Coronary artery arteriosclerosis (Chronic) Lumbar disc disease with radiculopathy (Chronic) Chronic wound of extremity (Chronic) Ulcer of calf due to diabetes mellitus (Chronic) Non-pressure chronic ulcer of right calf with fat layer exposed (Chronic) Surgical History: - - The patient has a history of coronary artery stent placement. She has undergone open reduction and internal fixation of a left tibia fracture. She underwent right meniscus repair in the past. She is a Ab0. Allergies/Adverse Reactions: Allergies bee venom protein (honey bee) Adverse Reaction (Verified 03/19/19 09:02) Swelling Home Medications: Ambulatory Orders Medication Instructions Recorded Aspirin E.C. [Ecotrin] 81 mg PO DAILY@0800 09/03/13 Hydrocodone/Acetaminophen [Vicodin 1 - 2 tablet PO Q6H PRN PRN 09/03/13 5-300 mg Tablet] Lisinopril 10 mg PO DAILY 09/03/13 Metformin [Metformin HCl] 1,000 mg PO BID 09/03/13 Metoprolol Tartrate 50 mg PO DAILY 09/03/13 Dulaglutide [Trulicity] 0.75 mg SQ 01/02/18 Fluticasone/Vilanterol [Breo 1 each IH 01/02/18 Ellipta 200-25 Mcg INH] Insulin Glargine,Hum.rec.anlog 56 unit BID 01/02/18 [Lantus] Sitagliptin Phosphate [Januvia] 25 mg PO DAILY 01/02/18 Tiotropium [place] [Spiriva] 18 mcg IH 01/02/18 - Family History Paternal - - The patient's father at the age of 78 with history of chronic obstructive pulmonary disease. The patient's mother at the age of 84 with history of chronic obstructive pulmonary disease. Smoking Status: Former smoker Tobacco Use: Non-smoker Review of Systems Constitutional: Denies: Chills, Fever, Weight Change Eyes: Denies: Pain, Vision Change HEENT: Denies: Difficulty Hearing, Difficulty Swallowing, Sinus Congestion Cardiovascular: Denies: Chest Pain, Palpitations Respiratory: Denies: Cough, Shortness of Breath Gastrointestinal: Denies: Diarrhea, Nausea, Vomiting Genitourinary: Denies: Dysuria, Hematuria Endocrine: Denies: Heat/ Cold Intolerance, Polydipsia, Polyuria Hematologic/ Lymphatic: Denies: Easy Bruising, Easy Bleeding - Physical Exam Vital Signs Temp Pulse Resp BP 96.7 F L 92 18 137/80 H 02/25/20 08:14 02/25/20 08:14 02/23/20 00:23 02/25/20 08:14 General: Alert, Oriented x3, Cooperative, No apparent distress, Well developed, Well nourished HEENT: Atraumatic, PERRLA, EOMI, Normocephalic Oral: Moist Mucosa Neck: No JVD Lungs: Normal air movement Abdomen: Non-Distended Extremities: No clubbing, No cyanosis, No edema, No Calf Tenderness Addt'l Wound Findings: The dual wounds on the patient's right anterolateral calf persist. They are both smaller in size. Dimensions are documented elsewhere. There is evidence of peripheral epithelialization and growth of skin. There is no sign of infection or cellulitis. There is a small amount of bioburden. In general, however, the base of each wound is generally pink and healthy in appearance, each with a small amount of bioburden. Skin: No rashes Wound Measurements and Assessment WC - Nurse 1 - General Ulcer Measurement Start: 02/25/20 08:14 Freq: Status: Active Protocol: Activity Type Activity Date Activity User E-Sign Co-Sign Detail Recorded Client Recorded Date Recorded By Document 02/25/20 08:14 [id number] 02/25/20 08:25 MS 02/25/20 08:14 Wound Center Nurse 1 [Ulcer Assessment] #3 LATERAL RLE -Current Size (cm) - Length 0.5 -Current Size (cm) - Width 0.5 -Current Size (cm) - Depth 0.1 -Total Square Cm 0.25 -Epithelialization Medium 34-66% -Exudate Amt Medium -Exudate Type Serosanguineous -Wound Margin Distinct, Outline Attached -Granulation Amt Medium (34-66%) -Slough/Fibrin Yes -Necrosis Amt Small (1-33%) -Necrotic Tissue Type Adherent Slough -Ulcer Cleansing Rinsed/ Irrigated with Saline -Foul Odor after Cleansing No -Anesthetic Used 4% Lidocaine Solution #2 R Vaz -Current Size (cm) - Length 1 -Current Size (cm) - Width 1.8 -Current Size (cm) - Depth 0.1 -Total Square Cm 1.8 -Epithelialization Small 1-33% -Exudate Amt Small -Wound Margin Distinct, Outline Attached -Granulation Amt Medium (34-66%) -Slough/Fibrin Yes -Necrosis Amt Small (1-33%) -Necrotic Tissue Type Adherent Slough -Temperature (Ketty-wound Skin No Abnormality Appearance) (Pt Warm) -Tenderness on Palpation (Ketty-wound No Skin Appearance) -Ulcer Cleansing Rinsed/ Irrigated with Saline -Foul Odor after Cleansing No -Anesthetic Used 4% Lidocaine Solution Musculoskeletal: No Muscle Wasting Neurological: Cranial nerves II-XII grossly intact, Neuro grossly intact Psych/Mental Status: Normal Affect, Appropriate, Alert and oriented to time, place, person, mood and affect Debridement Note Laterality: Right - Anterolateral calf Type of Debridement: Excisional debridement Anesthesia Used: 4% Lidocaine Solution Depth: Down to and including healthy tissue, in the subcutaneous layer Percentage of wound debrided: 100 Instrument Used: 5mm curette Tissue Removed: Bioburden Severity: Fat Layer Exposed Amount of bleeding with debridement: Mild Bleeding Controlled with: Compression and gauze Patient tolerated procedure well Following a routine excisional debridement, which was well-tolerated by the patient, a meshed 4 cm x 4.5 cm EpiFix allograft was selected for application. Upon removal from its sterile packaging, the allograft was fashioned to the appropriate size and shape. It was applied to the wound surfaces topically, over which Adaptic and gauze were placed. The sites were then secured using Steri-Strips. The procedure was well-tolerated by the patient. Assessment/Plan Assessment: This is a 59-year-old female who presented with traumatic wounds on the right lower extremity, of several months duration. The ulceration overlying the right bunion remains completely healed. A noninvasive lower extremity arterial study revealed normal ankle-brachial index on the right, and a normal digital brachial index on the right as well. The ulcerations on the anterolateral aspect of the right calf have shown slight improvement in recent weeks. A battery of diagnostic tests have been recently obtained, with results as follows: Glucose 172, BUN 19, creatinine 0.82, total protein 7.0, albumin 3.8, calcium 9.0, AST 32, alkaline phosphatase 70, ALT 47, total bilirubin 0.40, sodium 136, potassium 4.5, chloride 103, serum prealbumin 31.2, hemoglobin A1c 8.9, white blood count 6.0, hemoglobin 13.2, hematocrit 41.3, platelets 181,000. According to the patient, her blood sugars continue to run around 150 each day, and she indicates that she is consuming a well-balanced and nutritious diet. At this juncture, there has been improvement in recent weeks, apparently due to the use of an allograft. Plan: Patient has been counseled as to the appropriate foot care necessary in diabetic patients. Patient has been strongly urged to seek evaluation by a mud logger, for the fitting of appropriate footwear. Furthermore, frequent inspection of the patient's feet, appropriate toenail trimming by professional, etc., have been recommended. Patient has been advised to optimize her glycemic control. Adequate nutrition has been advised. We have applied an EpiFix allog raft today, the 6th such application, which is to remain in place, undisturbed, until the patient returns in 1 week. The patient is to continue wearing her graduated compression stockings of 20 to 30 mmHg compression on a daily basis. The patient is to continue elevating her legs as much as possible. She is to avoid prolonged idle sitting. The patient has been encouraged to assure adequate nutrition. Optimizing glycemic control has also been advised. Weight loss has also been recommended. She will follow-up in our clinic in 1 week. The patient's recent wound culture was negative. Influenza vaccine was not administered today. The patient is not a smoker. Patient weighs 265 pounds. She stands 5 feet 4 inches tall. Her BMI is 45.5, which places her in a class III category. Weight loss has been recommended, and collaboration with the patient's primary care physician has been recommended.
[2020-03-03 08:16] VITALS: BP 148/77; PULSE 111; RESP 20; TEMP 36.4; BMI 44.9
--- NOTE | 2020-03-03 08:48 | HP.PCM_ITS ---
(1) Traumatic open wound of lower leg Status: Chronic Qualifiers: Encounter type: subsequent encounter Laterality: right Qualified Code(s): S81.801D - Unspecified open wound, right lower leg, subsequent encounter Code(s): S81.809A - Unspecified open wound, unspecified lower leg, initial encounter (2) Leg swelling Status: Chronic Code(s): M79.89 - Other specified soft tissue disorders (3) Edema of leg Status: Chronic Code(s): R60.0 - Localized edema (4) Diabetes mellitus Status: Chronic Qualifiers: Diabetes mellitus type: type 2 Code(s): E11.9 - Type 2 diabetes mellitus without complications (5) Morbid obesity with BMI of 45.0-49.9, adult Status: Chronic Code(s): E66.01 - Morbid (severe) obesity due to excess calories; Z68.42 - Body mass index [BMI] 45.0-49.9, adult (6) COPD (chronic obstructive pulmonary disease) Status: Chronic Code(s): J44.9 - Chronic obstructive pulmonary disease, unspecified (7) Coronary artery arteriosclerosis Status: Chronic Code(s): I25.10 - Atherosclerotic heart disease of [place] coronary artery without angina pectoris (8) Lumbar disc disease with radiculopathy Status: Chronic Code(s): M51.16 - Intervertebral disc disorders with radiculopathy, lumbar region (9) Chronic wound of extremity Status: Chronic (10) Ulcer of calf due to diabetes mellitus Status: Chronic Code(s): E11.622 - Type 2 diabetes mellitus with other skin ulcer; L97.209 - Non-pressure chronic ulcer of unspecified calf with unspecified severity (11) Non-pressure chronic ulcer of right calf with fat layer exposed Status: Chronic Code(s): L97.212 - Non-pressure chronic ulcer of right calf with fat layer exposed History of Present Illness Date of Service: 03/03/20 Chief Complaint: Chronic open wound of the right lower extremity secondary to diabetes mellitus, Diabetic right foot wound - [place] [employer] 1 History of Wound: This is a 59-year-old diabetic female who has been previously treated in our facility for a traumatic wound on the left lower extremity. She presented this time with wounds in her right lower extremity. There are 2 wounds involving the right calf, which were initially traumatic in origin. They are located on the right anterior tibial surface and on the right lateral calf. These occurred due to impact with a car door in December 2018. It is felt, however, that the failure of the patient's wounds to heal is due to her longstanding diabetes mellitus. The patient has been using Collagenase Santyl topically. She also developed a more recent ulceration on the right foot, located overlying a bunion, which has now subsequently healed. According the patient, this occurred as a result of a new pair of sneakers, which she obtained at a retail establishment. The patient is known to be diabetic, and her blood sugars appear to be reasonably well controlled, based upon the patient's account. The previous wound in the left lower extremity has remained healed. The patient has continued to implement conservative treatment measures previously recommended, including leg elevation, avoidance of idle standing and sitting, active lifestyle, attempts at weight loss, and the use of graduated compression stockings on a daily basis, of 20 to 30 mmHg compression. Past Medical History Past Medical History: Chronic Problems Traumatic open wound of lower leg (Chronic) Leg swelling (Chronic) Edema of leg (Chronic) Diabetes mellitus (Chronic) Morbid obesity with BMI of 45.0-49.9, adult (Chronic) COPD (chronic obstructive pulmonary disease) (Chronic) Coronary artery arteriosclerosis (Chronic) Lumbar disc disease with radiculopathy (Chronic) Chronic wound of extremity (Chronic) Ulcer of calf due to diabetes mellitus (Chronic) Non-pressure chronic ulcer of right calf with fat layer exposed (Chronic) Surgical History: - - The patient has a history of coronary artery stent placement. She has undergone open reduction and internal fixation of a left tibia fracture. She underwent right meniscus repair in the past. She is a Ab0. Allergies/Adverse Reactions: Allergies bee venom protein (honey bee) Adverse Reaction (Verified 03/19/19 09:02) Swelling Home Medications: Ambulatory Orders Medication Instructions Recorded Aspirin E.C. [Ecotrin] 81 mg PO DAILY@0800 09/03/13 Hydrocodone/Acetaminophen [Vicodin 1 - 2 tablet PO Q6H PRN PRN 09/03/13 5-300 mg Tablet] Lisinopril 10 mg PO DAILY 09/03/13 Metformin [Metformin HCl] 1,000 mg PO BID 09/03/13 Metoprolol Tartrate 50 mg PO DAILY 09/03/13 Dulaglutide [Trulicity] 0.75 mg SQ 01/02/18 Fluticasone/Vilanterol [Breo 1 each IH 01/02/18 Ellipta 200-25 Mcg INH] Insulin Glargine,Hum.rec.anlog 56 unit BID 01/02/18 [Lantus] Sitagliptin Phosphate [Januvia] 25 mg PO DAILY 01/02/18 Tiotropium [place] [Spiriva] 18 mcg IH 01/02/18 - Family History Paternal - - The patient's father at the age of 78 with history of chronic obstructive pulmonary disease. The patient's mother at the age of 84 with history of chronic obstructive pulmonary disease. Smoking Status: Former smoker Tobacco Use: Non-smoker Review of Systems Constitutional: Denies: Chills, Fever, Weight Change Eyes: Denies: Pain, Vision Change HEENT: Denies: Difficulty Hearing, Difficulty Swallowing, Sinus Congestion Cardiovascular: Denies: Chest Pain, Palpitations Respiratory: Denies: Cough, Shortness of Breath Gastrointestinal: Denies: Diarrhea, Nausea, Vomiting Genitourinary: Denies: Dysuria, Hematuria Endocrine: Denies: Heat/ Cold Intolerance, Polydipsia, Polyuria Hematologic/ Lymphatic: Denies: Easy Bruising, Easy Bleeding - Physical Exam Vital Signs Temp Pulse Resp BP 97.5 F L 111 H 20 H 148/77 H 03/03/20 08:16 03/03/20 08:16 03/03/20 08:16 03/03/20 08:16 General: Alert, Oriented x3, Cooperative, No apparent distress, Well developed, Well nourished HEENT: Atraumatic, PERRLA, EOMI, Normocephalic Oral: Moist Mucosa Neck: No JVD Lungs: Normal air movement Abdomen: Non-Distended Extremities: No clubbing, No cyanosis, No edema, No Calf Tenderness Addt'l Wound Findings: The pair of ulcerations on the right anterolateral calf persist. They appear to be smaller in size. Dimensions are documented elsewhere. There is no sign of infection or cellulitis. There is evidence of epithelialization. There is a small amount of bioburden. Skin: No rashes Wound Measurements and Assessment WC - Nurse 1 - General Ulcer Measurement Start: 02/25/20 08:14 Freq: Status: Active Protocol: Activity Type Activity Date Activity User E-Sign Co-Sign Detail Recorded Client Recorded Date Recorded By Document 03/03/20 08:16 MARCUS [id number] 03/03/20 08:24 MARCUS 03/03/20 08:16 Wound Center Nurse 1 [Ulcer Assessment] #3 LATERAL RLE -Current Size (cm) - Length 1 -Current Size (cm) - Width 0.6 -Current Size (cm) - Depth 0.2 -Total Square Cm 0.6 -Photo Taken No -Exudate Amt Small -Exudate Type Serosanguineous -Wound Margin Distinct, Outline Attached -Granulation Amt Small (1-33%) -Granulation Quality [place] -Necrosis Amt Small (1-33%) -Necrotic Tissue Type Adherent Slough -Structure Exposed N/A -Texture (Ketty-wound Skin Appearance) Scarring -Moisture (Ketty-wound Skin Appearance Dry/Scaly ) -Color (Ketty-wound Skin Appearance) No Abnormality -Temperature (Ketty-wound Skin No Abnormality Appearance) (Pt Warm) -Tenderness on Palpation (Ketty-wound No Skin Appearance) -Ulcer Cleansing Wound Cleanser -Foul Odor after Cleansing No -Anesthetic Used 4% Lidocaine Solution #2 R Vaz -Current Size (cm) - Length 0.4 -Current Size (cm) - Width 0.4 -Current Size (cm) - Depth 0.1 -Total Square Cm 0.16 -Photo Taken No -Exudate Amt Small -Exudate Type Serosanguineous -Wound Margin Distinct, Outline Attached -Granulation Amt Small (1-33%) -Granulation Quality [place] -Necrosis Amt Small (1-33%) -Necrotic Tissue Type Adherent Slough -Structure Exposed N/A -Texture (Ketty-wound Skin Appearance) Scarring -Moisture (Ketty-wound Skin Appearance No Abnormality ) -Color (Ketty-wound Skin Appearance) No Abnormality -Temperature ([place]etty-wound Skin No Abnormality Appearance) (Pt Warm) -Tenderness on Palpation (Ketty-wound No Skin Appearance) -Ulcer Cleansing Wound Cleanser -Foul Odor after Cleansing No -Anesthetic Used 4% Lidocaine Solution [Edema Assessment] -Right Calf (cm) 40.5 -Right Ankle (cm) 24 Musculoskeletal: No Muscle Wasting Neurological: Cranial nerves II-XII grossly intact, Neuro grossly intact Psych/Mental Status: Normal Affect, Appropriate, Alert and oriented to time, place, person, mood and affect Debridement Note Post-Debridement Measurements/Treatment WC - Nurse 2 - General Ulcer CM Notes Start: 02/25/20 08:14 Freq: Status: Active Protocol: Activity Type Activity Date Activity User E-Sign Co-Sign Detail Recorded Client Recorded Date Recorded By Document 02/25/20 15:58 PL [id number] 02/25/20 16:13 PL 02/25/20 15:58 Wound Center Nurse 2 #3 LATERAL RLE -Time 08:39 -Correct Patient Yes -Correct Side, Site, Position Yes -Correct Procedure Yes -Procedure Performed Yes -Type of Procedure Debridement -Clinical Debridement Subcutaneous -Tissue Removed Subcutaneous -Post Debridement (cm) - Length 0.5 -Post Debridement (cm) - Width 0.5 -Post Debridement (cm) - Depth 0.1 -Total Square (Post) (cm) 0.25 -Area of Debridement (cm) - Length 0.5 -Area of Debridement (cm) - Width 0.5 -Total Square (Area) (cm) 0.25 -Tunneling No -Undermining/Tunneling No -Circular Undermining No -Wound/Ulcer Outcome Not Healed -Ulcer Cleansing Rinsed/ Irrigated with Saline -Foul Odor after Cleansing No -Bioengineered Tissue No -Debridement - Subq, 1st 20sq cm No #2 R Vaz -Time 08:39 -Correct Patient Yes -Correct Side, Site, Position Yes -Correct Procedure Yes -Procedure Performed Yes -Type of Procedure Debridement -Clinical Debridement Subcutaneous -Tissue Removed Subcutaneous -Post Debridement (cm) - Length 1 -Post Debridement (cm) - Width 1.8 -Post Debridement (cm) - Depth 0.1 -Total Square (Post) (cm) 1.8 -Area of Debridement (cm) - Length 1 -Area of Debridement (cm) - Width 1.8 -Total Square (Area) (cm) 1.8 -Tunneling No -Undermining/Tunneling No -Circular Undermining No -Wound/Ulcer Outcome Not Healed -Ulcer Cleansing Rinsed/ Irrigated with Saline -Foul Odor after Cleansing No -Bioengineered Tissue Yes -Type of Bioengineered Tissue Epifix Mesh -Expiration Date 11/22/24 -Product Lot Number [id number] -Percent Used 100 -Bleeding Controlled with Pressure -Treatment Response Procedure Tolerated Well -Debridement - Subq, 1st 20sq cm No -Apply Skin Sub - 1st 25 sq cm - Legs 1 -Epifix Mesh (per sq cm) 11 Pain Scale: 0-10 Numeric Is Patient Pain Free? Yes - Nurse 3 - General Ulcer D/C NN Start: 02/25/20 08:14 Freq: Status: Active Protocol: Activity Type Activity Date Activity User E-Sign Co-Sign Detail Recorded Client Recorded Date Recorded By Document 02/25/20 09:01 MARCUS [id number] 02/25/20 09:02 DL 02/25/20 09:01 Wound Care Nurse 3 #3 LATERAL RLE -Foul Odor after Cleansing No -Other Dressing Epifix -Primary Dressing Covered/Secured with Dry Gauze, Secured with Tape #2 R Vaz -Foul Odor after Cleansing No -Other Dressing Epifix -Primary Dressing Covered/Secured with Dry Gauze, Secured with Tape Treatment Response Procedure Tolerated Well Pain Scale: 0-10 Numeric Is Patient Pain Free? Yes WC - Visit Discharge Discharge Condition Stable Ambulatory Status Ambulatory Transportation Private Auto Notes: Pt to apply tubigrips at home. Laterality: Right - Anterolateral calf Type of Debridement: Excisional debridement Anesthesia Used: 5% Lidocaine Gel Depth: Down to and including healthy tissue, in the subcutaneous layer Percentage of wound debrided: 100 Instrument Used: 3mm curette Tissue Removed: Bioburden Severity: Fat Layer Exposed Amount of bleeding with debridement: Mild Bleeding Controlled with: Compression and gauze Patient tolerated procedure well Following a routine excisional debridement, a 2 cm x 2 cm EpiFix allograft was selected for placement topically at the site of the paired right calf ulcerations. Upon removal from its sterile packaging, the allograft was fashioned to the appropriate sizes and shapes. The allograft was placed topically, followed by gauze and Adaptic touch. The site was then secured using Steri-Strips. The procedure was well-tolerated. Assessment/Plan Active Problems Traumatic open wound of lower leg (Chronic) Leg swelling (Chronic) Edema of leg (Chronic) Diabetes mellitus (Chronic) Morbid obesity with BMI of 45.0-49.9, adult (Chronic) COPD (chronic obstructive pulmonary disease) (Chronic) Coronary artery arteriosclerosis (Chronic) Lumbar disc disease with radiculopathy (Chronic) Chronic wound of extremity (Chronic) Ulcer of calf due to diabetes mellitus (Chronic) Non-pressure chronic ulcer of right calf with fat layer exposed (Chronic) Assessment: This is a 59-year-old female who presented with traumatic wounds on the right lower extremity, of several months duration. The ulceration overlying the right bunion remains completely healed. A noninvasive lower extremity arterial study revealed normal ankle-brachial index on the right, and a normal digital brachial index on the right as well. The ulcerations on the anterolateral aspect of the right calf have shown slight improvement in recent weeks. A battery of diagnostic tests have been recently obtained, with results as follows: Glucose 172, BUN 19, creatinine 0.82, total protein 7.0, albumin 3.8, calcium 9.0, AST 32, alkaline phosphatase 70, ALT 47, total bilirubin 0.40, sodium 136, potassium 4.5, chloride 103, serum prealbumin 31.2, hemoglobin A1c 8.9, white blood count 6.0, hemoglobin 13.2, hematocrit 41.3, platelets 181,000. According to the patient, her blood sugars continue to run around 150 each day, and she indicates that she is consuming a well-balanced and nutritious diet. At this juncture, there has been improvement in recent weeks, apparently due to the use of an allograft. Plan: Patient has been counseled as to the appropriate foot care necessary in diabetic patients. Patient has been strongly urged to seek evaluation by a gas well drilling manager, for the fitting of appropriate footwear. Furthermore, frequent inspection of the patient's feet, appropriate toenail trimming by professional, etc., have been recommended. Patient has been advised to optimize her glycemic control. Adequate nutrition has been advised. We have applied an EpiFix allograft today, the 7th such application, which is to remain in place, undisturbed, until the patient returns in 1 week. The patient is to continue wearing her graduated compression stockings of 20 to 30 mmHg compression on a daily basis. The patient is to continue elevating her legs as much as possible. She is to avoid prolonged idle sitting. The patient has been encouraged to assure adequate nutrition. Optimizing glycemic control has also been advised. Weight loss has also been recommended. She will follow-up in our clinic in 1 week. The patient's recent wound culture was negative. Influenza vaccine was not administered today. The patient is not a smoker. Patient weighs 265 pounds. She stands 5 feet 4 inches tall. Her BMI is 45.5, which places her in a class III category. Weight loss has been recommended, and collaboration with the patient's primary care physician has been recommended.
[2020-03-10 08:05] VITALS: BP 142/76; PULSE 103; RESP 20; TEMP 36.4; BMI 44.9
--- NOTE | 2020-03-10 08:45 | PCM.WC.HP ---
(1) Traumatic open wound of lower leg Status: Chronic Qualifiers: Encounter type: subsequent encounter Laterality: right Qualified Code(s): S81.801D - Unspecified open wound, right lower leg, subsequent encounter Code(s): S81.809A - Unspecified open wound, unspecified lower leg, initial encounter (2) Leg swelling Status: Chronic Code(s): M79.89 - Other specified soft tissue disorders (3) Edema of leg Status: Chronic Code(s): R60.0 - Localized edema (4) Diabetes mellitus Status: Chronic Qualifiers: Diabetes mellitus type: type 2 Code(s): E11.9 - Type 2 diabetes mellitus without complications (5) Morbid obesity with BMI of 45.0-49.9, adult Status: Chronic Code(s): E66.01 - Morbid (severe) obesity due to excess calories; Z68.42 - Body mass index [BMI] 45.0-49.9, adult (6) COPD (chronic obstructive pulmonary disease) Status: Chronic Code(s): J44.9 - Chronic obstructive pulmonary disease, unspecified (7) Coronary artery arteriosclerosis Status: Chronic Code(s): I25.10 - Atherosclerotic heart disease of [place] coronary artery without angina pectoris (8) Lumbar disc disease with radiculopathy Status: Chronic Code(s): M51.16 - Intervertebral disc disorders with radiculopathy, lumbar region (9) Chronic wound of extremity Status: Chronic (10) Ulcer of calf due to diabetes mellitus Status: Chronic Code(s): E11.622 - Type 2 diabetes mellitus with other skin ulcer; L97.209 - Non-pressure chronic ulcer of unspecified calf with unspecified severity (11) Non-pressure chronic ulcer of right calf with fat layer exposed Status: Chronic Code(s): L97.212 - Non-pressure chronic ulcer of right calf with fat layer exposed History of Present Illness Date of Service: 03/10/20 Chief Complaint: Chronic open wound of the right lower extremity secondary to diabetes mellitus, Diabetic right foot wound - [place] Grade 1 History of Wound: This is a 59-year-old diabetic female who has been previously treated in our facility for a traumatic wound on the left lower extremity. She presented this time with wounds in her right lower extremity. There are 2 wounds involving the right calf, which were initially traumatic in origin. They are located on the right anterior tibial surface and on the right lateral calf. These occurred due to impact with a car door in December 2018. It is felt, however, that the failure of the patient's wounds to heal is due to her longstanding diabetes mellitus. The patient has been using Collagenase Santyl topically. She also developed a more recent ulceration on the right foot, located overlying a bunion, which has now subsequently healed. According the patient, this occurred as a result of a new pair of sneakers, which she obtained at a retail establishment. The patient is known to be diabetic, and her blood sugars appear to be reasonably well controlled, based upon the patient's account. The previous wound in the left lower extremity has remained healed. The patient has continued to implement conservative treatment measures previously recommended, including leg elevation, avoidance of idle standing and sitting, active lifestyle, attempts at weight loss, and the use of graduated compression stockings on a daily basis, of 20 to 30 mmHg compression. Past Medical History Past Medical History: Chronic Problems Traumatic open wound of lower leg (Chronic) Leg swelling (Chronic) Edema of leg (Chronic) Diabetes mellitus (Chronic) Morbid obesity with BMI of 45.0-49.9, adult (Chronic) COPD (chronic obstructive pulmonary disease) (Chronic) Coronary artery arteriosclerosis (Chronic) Lumbar disc disease with radiculopathy (Chronic) Chronic wound of extremity (Chronic) Ulcer of calf due to diabetes mellitus (Chronic) Non-pressure chronic ulcer of right calf with fat layer exposed (Chronic) Surgical History: - - The patient has a history of coronary artery stent placement. She has undergone open reduction and internal fixation of a left tibia fracture. She underwent right meniscus repair in the past. She is a Ab0. Allergies/Adverse Reactions: Allergies bee venom protein (honey bee) Adverse Reaction (Verified 03/19/19 09:02) Swelling Home Medications: Ambulatory Orders Medication Instructions Recorded Aspirin E.C. [Ecotrin] 81 mg PO DAILY@0800 09/03/13 Hydrocodone/Acetaminophen [Vicodin 1 - 2 tablet PO Q6H PRN PRN 09/03/13 5-300 mg Tablet] Lisinopril 10 mg PO DAILY 09/03/13 Metformin [Metformin HCl] 1,000 mg PO BID 09/03/13 Metoprolol Tartrate 50 mg PO DAILY 09/03/13 Dulaglutide [Trulicity] 0.75 mg SQ 01/02/18 Fluticasone/Vilanterol [Breo 1 each IH 01/02/18 Ellipta 200-25 Mcg INH] Insulin Glargine,Hum.rec.anlog 56 unit BID 01/02/18 [Lantus] Sitagliptin Phosphate [Januvia] 25 mg PO DAILY 01/02/18 Tiotropium [place] [Spiriva] 18 mcg IH 01/02/18 - Family History Paternal - - The patient's father at the age of 78 with history of chronic obstructive pulmonary disease. The patient's mother at the age of 84 with history of chronic obstructive pulmonary disease. Smoking Status: Former smoker Tobacco Use: Non-smoker Review of Systems Constitutional: Denies: Chills, Fever, Weight Change Eyes: Denies: Pain, Vision Change HEENT: Denies: Difficulty Hearing, Difficulty Swallowing, Sinus Congestion Cardiovascular: Denies: Chest Pain, Palpitations Respiratory: Denies: Cough, Shortness of Breath Gastrointestinal: Denies: Diarrhea, Nausea, Vomiting Genitourinary: Denies: Dysuria, Hematuria Endocrine: Denies: Heat/ Cold Intolerance, Polydipsia, Polyuria Hematologic/ Lymphatic: Denies: Easy Bruising, Easy Bleeding - Physical Exam Vital Signs Temp Pulse Resp BP 97.5 F L 103 H 20 H 142/76 H 03/10/20 08:05 03/10/20 08:05 03/10/20 08:05 03/10/20 08:05 General: Alert, Oriented x3, Cooperative, No apparent distress, Well developed, Well nourished HEENT: Atraumatic, PERRLA, EOMI, Normocephalic Oral: Moist Mucosa Neck: No JVD Lungs: Normal air movement Abdomen: Non-Distended Extremities: No clubbing, No cyanosis, No edema, No Calf Tenderness, - - No significant swelling or edema are noted in the patient's lower extremities. There are no significant chronic skin changes. Addt'l Wound Findings: The ulcerations on the right lateral calf persists. They are dual in nature. The each appear to be smaller. There is evidence of epithelialization. There is no sign of infection or cellulitis. There is a small amount of bioburden. Dimensions are documented elsewhere. Skin: No rashes Wound Measurements and Assessment WC - Nurse 1 - General Ulcer Measurement Start: 02/25/20 08:14 Freq: Status: Active Protocol: Activity Type Activity Date Activity User E-Sign Co-Sign Detail Recorded Client Recorded Date Recorded By Document 03/10/20 08:05 MARCUS [id number] 03/10/20 08:14 MARCUS 03/10/20 08:05 Wound Center Nurse 1 [Ulcer Assessment] #3 LATERAL RLE -Current Size (cm) - Length 0.7 -Current Size (cm) - Width 0.6 -Current Size (cm) - Depth 0.2 -Total Square Cm 0.42 -Exudate Amt Small -Exudate Type Yellow/Green -Wound Margin Distinct, Outline Attached -Granulation Amt Small (1-33%) -Granulation [place] -Necrosis Amt Small (1-33%) -Necrotic Tissue Type Adherent Slough -Texture (Ketty-wound Skin Appearance) Scarring -Moisture (Ketty-wound Skin Appearance No Abnormality ) -Temperature (Ketty-wound Skin No Abnormality Appearance) (Pt Warm) -Tenderness on Palpation (Ketty-wound No Skin Appearance) -Ulcer Cleansing Wound Cleanser -Foul Odor after Cleansing No -Anesthetic Used 4% Lidocaine Solution #2 R Vaz -Current Size (cm) - Length 0.8 -Current Size (cm) - Width 0.1 -Current Size (cm) - Depth 0.1 -Total Square Cm 0.08 -Photo Taken No -Exudate Amt Small -Exudate Type Serosanguineous -Wound Margin Distinct, Outline Attached -Granulation Amt Large (67-100%) -Granulation [place] -Necrosis Amt Small (1-33%) -Necrotic Tissue Type Adherent Slough -Structure Exposed N/A -Texture (Ketty-wound Skin Appearance) Scarring -Moisture (Ketty-wound Skin Appearance No Abnormality ) -Color (Ketty-wound Skin Appearance) No Abnormality -Temperature (Ketty-wound Skin No Abnormality Appearance) (Pt Warm) -Tenderness on Palpation (Ketty-wound No Skin Appearance) -Ulcer Cleansing Wound Cleanser -Foul Odor after Cleansing No -Anesthetic Used 4% Lidocaine Solution [Edema Assessment] -Point of measurement (cm from the 40 medial instep) -Point of Measurement (cm from the 23 medial instep) Musculoskeletal: No Muscle Wasting Neurological: Cranial nerves II-XII grossly intact, Neuro grossly intact Psych/Mental Status: Normal Affect, Appropriate, Alert and oriented to time, place, person, mood and affect Debridement Note Post-Debridement Measurements/Treatment WC - Nurse 2 - General Ulcer CM Notes Start: 02/25/20 08:14 Freq: Status: Active Protocol: Activity Type Activity Date Activity User E-Sign Co-Sign Detail Recorded Client Recorded Date Recorded By Document 02/25/20 15:58 PL [id number] 02/25/20 16:13 PL Document 03/03/20 09:39 PL [id number] 03/03/20 09:43 PL 02/25/20 03/03/20 15:58 09:39 Wound Center Nurse 2 #3 LATERAL RLE -Time : 08:33 -Correct Patient Yes Yes -Correct Side, Site, Position Yes Yes -Correct Procedure Yes Yes -Procedure Performed Yes Yes -Type of Procedure Debridement Debridement -Clinical Debridement Subcutaneous Subcutaneous -Tissue Removed Subcutaneous Subcutaneous -Post Debridement (cm) - Length 0.5 1 -Post Debridement (cm) - Width 0.5 0.6 -Post Debridement (cm) - Depth 0.1 0.1 -Total Square (Post) (cm) 0.25 0.6 -Area of Debridement (cm) - Length 0.5 1 -Area of Debridement (cm) - Width 0.5 0.6 -Total Square (Area) (cm) 0.25 0.6 -Tunneling No No -Undermining/Tunneling No No -Circular Undermining No No -Wound/Ulcer Outcome Not Healed Not Healed -Ulcer Cleansing Rinsed/ Rinsed/ Irrigated with Irrigated with Saline Saline -Foul Odor after Cleansing No No -Bioengineered Tissue No Yes -Type of Bioengineered Tissue Epifix -Expiration Date 10/22/24 -Product Lot Number [id number] -Percent Used 100 -Saline Lot Number [id number] -Bleeding Controlled with Pressure -Treatment Response Procedure Tolerated Well -Debridement - Subq, 1st 20sq cm No No -Apply Skin Sub - 1st 25 sq cm - Legs 1 -Epifix (per sq cm) 4 #2 R Vaz -Time 08:39 08:33 -Correct Patient Yes Yes -Correct Side, Site, Position Yes Yes -Correct Procedure Yes Yes -Procedure Performed Yes Yes -Type of Procedure Debridement Debridement -Clinical Debridement Subcutaneous Subcutaneous -Tissue Removed Subcutaneous Subcutaneous -Post Debridement (cm) - Length 1 0.4 -Post Debridement (cm) - Width 1.8 0.4 -Post Debridement (cm) - Depth 0.1 0.1 -Total Square (Post) (cm) 1.8 0.16 -Area of Debridement (cm) - Length 1 0.4 -Area of Debridement (cm) - Width 1.8 0.4 -Total Square (Area) (cm) 1.8 0.16 -Tunneling No No -Undermining/Tunneling No No -Circular Undermining No No -Wound/Ulcer Outcome Not Healed Not Healed -Ulcer Cleansing Rinsed/ Rinsed/ Irrigated with Irrigated with Saline Saline -Foul Odor after Cleansing No No -Bioengineered Tissue Yes No -Type of Bioengineered Tissue Epifix Mesh -Expiration Date 11/22/24 -Product Lot Number [id number] -Percent Used 100 -Bleeding Controlled with Pressure Pressure -Treatment Response Procedure Procedure Tolerated Well Tolerated Well -Debridement - Subq, 1st 20sq cm No No -Apply Skin Sub - 1st 25 sq cm - Legs 1 -Epifix Mesh (per sq cm) 11 Pain Scale: 0-10 Numeric Is Patient Pain Free? Yes Yes WC - Nurse 3 - General Ulcer D/C NN Start: 02/25/20 08:14 Freq: Status: Active Protocol: Activity Type Activity Date Activity User E-Sign Co-Sign Detail Recorded Client Recorded Date Recorded By Document 02/25/20 09:01 DL [id number] 02/25/20 09:02 DL Document 03/03/20 09:39 PL [id number] 03/03/20 09:43 PL 02/25/20 03/03/20 09:01 09:39 Wound Care Nurse 3 #3 LATERAL RLE -Ulcer Cleansing Rinsed/ Irrigated with Saline -Foul Odor after Cleansing No No -Other Dressing Epifix -Primary Dressing Covered/Secured with Dry Gauze, Dry Gauze, Secured with Secured with Tape Tape #2 R Vaz -Ulcer Cleansing Rinsed/ Irrigated with Saline -Foul Odor after Cleansing No No -Other Dressing Epifix -Primary Dressing Covered/Secured with Dry Gauze, Dry Gauze, Secured with Secured with Tape Tape Right -Tubular Bandage Single Layer -Size of Tubigrip Used Size C -Size C ($) 1 Treatment Response Procedure Tolerated Well Pain Scale: 0-10 Numeric Is Patient Pain Free? Yes Yes WC - Visit Discharge Discharge Condition Stable Stable Ambulatory Status Ambulatory Ambulatory Transportation Private Auto Private Auto Clinical Summary of Care Provided Yes Notes: Pt to apply tubigrips at home. Laterality: Right - Lateral calf x 2 Type of Debridement: Excisional debridement Anesthesia Used: 5% Lidocaine Gel Depth: Down to and including healthy tissue, in the subcutaneous layer Percentage of wound debrided: 100 Instrument Used: 3mm curette Tissue Removed: Bioburden Severity: Fat Layer Exposed Amount of bleeding with debridement: Mild Bleeding Controlled with: Compression and gauze Patient tolerated procedure well Following a routine excisional debridement, which was well-tolerated, EpiFix allograft was applied topically. A 2 cm x 2 cm allograft was selected. Upon removal from its sterile packaging, the allograft was cut and fashioned to the appropriate size and shape. It was then applied over each of the 2 adjacent wounds. This represents the 8th such allograft application. Gauze and Adaptic Touch were then applied, and anchored in place using Steri-Strips. The procedure was well-tolerated. Assessment/Plan Active Problems Traumatic open wound of lower leg (Chronic) Leg swelling (Chronic) Edema of leg (Chronic) Diabetes mellitus (Chronic) Morbid obesity with BMI of 45.0-49.9, adult (Chronic) COPD (chronic obstructive pulmonary disease) (Chronic) Coronary artery arteriosclerosis (Chronic) Lumbar disc disease with radiculopathy (Chronic) Chronic wound of extremity (Chronic) Ulcer of calf due to diabetes mellitus (Chronic) Non-pressure chronic ulcer of right calf with fat layer exposed (Chronic) Assessment: This is a 59-year-old female who presented with traumatic wounds on the right lower extremity, of several months duration. The ulceration overlying the right bunion remains completely healed. A noninvasive lower extremity arterial study revealed normal ankle-brachial index on the right, and a normal digital brachial index on the right as well. The ulcerations on the anterolateral aspect of the right calf have shown slight improvement in recent weeks. A battery of diagnostic tests have been recently obtained, with results as follows: Glucose 172, BUN 19, creatinine 0.82, total protein 7.0, albumin 3.8, calcium 9.0, AST 32, alkaline phosphatase 70, ALT 47, total bilirubin 0.40, sodium 136, potassium 4.5, chloride 103, serum prealbumin 31.2, hemoglobin A1c 8.9, white blood count 6.0, hemoglobin 13.2, hematocrit 41.3, platelets 181,000. According to the patient, her blood sugars continue to run around 150 each day, and she indicates that she is consuming a well-balanced and nutritious diet. At this juncture, there has been improvement in recent weeks, apparently due to the use of an allograft. Plan: Patient has been counseled as to the appropriate foot care necessary in diabetic patients. Patient has been strongly urged to seek evaluation by a joint finisher, for the fitting of appropriate footwear. Furthermore, frequent inspection of the patient's feet, appropriate toenail trimming by professional, etc., have been recommended. Patient has been advised to optimize her glycemic control. Adequate nutrition has been advised. We have applied an EpiFix allograft today, the 8th such application, which is to remain in place, undisturbed, until the patient returns in 1 week. The patient is to continue wearing her graduated compression stockings of 20 to 30 mmHg compression on a daily basis. The patient is to continue elevating her legs as much as possible. She is to avoid prolonged idle sitting. The patient has been encouraged to assure adequate nutrition. Optimizing glycemic control has also been advised. Weight loss has also been recommended. She will follow-up in our clinic in 1 week. The patient's recent wound culture was negative. Influenza vaccine was not administered today. The patient is not a smoker. Patient weighs 265 pounds. She stands 5 feet 4 inches tall. Her BMI is 45.5, which places her in a class III category. Weight loss has been recommended, and collaboration with the patient's primary care physician has been recommended.
[2020-03-17 08:13] VITALS: BP 117/78; PULSE 114; RESP 16; TEMP 36.1; BMI 44.9
--- NOTE | 2020-03-17 08:52 | HP.PCM_ITS ---
(1) Traumatic open wound of lower leg Status: Chronic Qualifiers: Encounter type: subsequent encounter Laterality: right Qualified Code(s): S81.801D - Unspecified open wound, right lower leg, subsequent encounter Code(s): S81.809A - Unspecified open wound, unspecified lower leg, initial encounter (2) Leg swelling Status: Chronic Code(s): M79.89 - Other specified soft tissue disorders (3) Edema of leg Status: Chronic Code(s): R60.0 - Localized edema (4) Diabetes mellitus Status: Chronic Qualifiers: Diabetes mellitus type: type 2 Code(s): E11.9 - Type 2 diabetes mellitus without complications (5) Morbid obesity with BMI of 45.0-49.9, adult Status: Chronic Code(s): E66.01 - Morbid (severe) obesity due to excess calories; Z68.42 - Body mass index [BMI] 45.0-49.9, adult (6) COPD (chronic obstructive pulmonary disease) Status: Chronic Code(s): J44.9 - Chronic obstructive pulmonary disease, unspecified (7) Coronary artery arteriosclerosis Status: Chronic Code(s): I25.10 - Atherosclerotic heart disease of [place] coronary artery without angina pectoris (8) Lumbar disc disease with radiculopathy Status: Chronic Code(s): M51.16 - Intervertebral disc disorders with radiculopathy, lumbar region (9) Chronic wound of extremity Status: Chronic (10) Ulcer of calf due to diabetes mellitus Status: Chronic Code(s): E11.622 - Type 2 diabetes mellitus with other skin ulcer; L97.209 - Non-pressure chronic ulcer of unspecified calf with unspecified severity (11) Non-pressure chronic ulcer of right calf with fat layer exposed Status: Chronic Code(s): L97.212 - Non-pressure chronic ulcer of right calf with fat layer exposed History of Present Illness Date of Service: 03/17/20 Chief Complaint: Chronic open wound of the right lower extremity secondary to diabetes mellitus, Diabetic right foot wound - [place] Grade 1 History of Wound: This is a 59-year-old diabetic female who has been previously treated in our facility for a traumatic wound on the left lower extremity. She presented this time with wounds in her right lower extremity. There are 2 wounds involving the right calf, which were initially traumatic in origin. They are located on the right anterior tibial surface and on the right lateral calf. These occurred due to impact with a car door in December 2018. It is felt, however, that the failure of the patient's wounds to heal is due to her longstanding diabetes mellitus. The patient has been using Collagenase Santyl topically. She also developed a more recent ulceration on the right foot, located overlying a bunion, which has now subsequently healed. According the patient, this occurred as a result of a new pair of sneakers, which she obtained at a retail establishment. The patient is known to be diabetic, and her blood sugars appear to be reasonably well controlled, based upon the patient's account. The previous wound in the left lower extremity has remained healed. The patient has continued to implement conservative treatment measures previously recommended, including leg elevation, avoidance of idle standing and sitting, active lifestyle, attempts at weight loss, and the use of graduated compression stockings on a daily basis, of 20 to 30 mmHg compression. Past Medical History Past Medical History: Chronic Problems Traumatic open wound of lower leg (Chronic) Leg swelling (Chronic) Edema of leg (Chronic) Diabetes mellitus (Chronic) Morbid obesity with BMI of 45.0-49.9, adult (Chronic) COPD (chronic obstructive pulmonary disease) (Chronic) Coronary artery arteriosclerosis (Chronic) Lumbar disc disease with radiculopathy (Chronic) Chronic wound of extremity (Chronic) Ulcer of calf due to diabetes mellitus (Chronic) Non-pressure chronic ulcer of right calf with fat layer exposed (Chronic) Surgical History: - - The patient has a history of coronary artery stent placement. She has undergone open reduction and internal fixation of a left tibia fracture. She underwent right meniscus repair in the past. She is a Ab0. Allergies/Adverse Reactions: Allergies bee venom protein (honey bee) Adverse Reaction (Verified 03/19/19 09:02) Swelling Home Medications: Ambulatory Orders Medication Instructions Recorded Aspirin E.C. [Ecotrin] 81 mg PO DAILY@0800 09/03/13 Hydrocodone/Acetaminophen [Vicodin 1 - 2 tablet PO Q6H PRN PRN 09/03/13 5-300 mg Tablet] Lisinopril 10 mg PO DAILY 09/03/13 Metformin [Metformin HCl] 1,000 mg PO BID 09/03/13 Metoprolol Tartrate 50 mg PO DAILY 09/03/13 Dulaglutide [Trulicity] 0.75 mg SQ 01/02/18 Fluticasone/Vilanterol [Breo 1 each IH 01/02/18 Ellipta 200-25 Mcg INH] Insulin Glargine,Hum.rec.anlog 56 unit BID 01/02/18 [Lantus] Sitagliptin Phosphate [Januvia] 25 mg PO DAILY 01/02/18 Tiotropium Stella [Spiriva] 18 mcg IH 01/02/18 - Family History Paternal - - The patient's father at the age of 78 with history of chronic obstructive pulmonary disease. The patient's mother at the age of 84 with history of chronic obstructive pulmonary disease. Smoking Status: Former smoker Tobacco Use: Non-smoker Review of Systems Constitutional: Denies: Chills, Fever, Weight Change Eyes: Denies: Pain, Vision Change HEENT: Denies: Difficulty Hearing, Difficulty Swallowing, Sinus Congestion Cardiovascular: Denies: Chest Pain, Palpitations Respiratory: Denies: Cough, Shortness of Breath Gastrointestinal: Denies: Diarrhea, Nausea, Vomiting Genitourinary: Denies: Dysuria, Hematuria Endocrine: Denies: Heat/ Cold Intolerance, Polydipsia, Polyuria Hematologic/ Lymphatic: Denies: Easy Bruising, Easy Bleeding - Physical Exam Vital Signs Temp Pulse Resp BP 96.9 F L 114 H 16 117/78 03/17/20 08:13 03/17/20 08:13 03/17/20 08:13 03/17/20 08:13 General: Alert, Oriented x3, Cooperative, No apparent distress, Well developed, Well nourished HEENT: Atraumatic, PERRLA, EOMI, Normocephalic Oral: Moist Mucosa Neck: No JVD Lungs: Normal air movement Abdomen: Non-Distended Extremities: No clubbing, No cyanosis, No edema, No Calf Tenderness, - - There is no swelling or edema noted in the patient's right lower extremity. There are no significant skin changes. The 2 ulcerations on the right lateral calf persist. Addt'l Wound Findings: The 2 ulcerations on the right lateral calf persists. There is no sign of infection or cellulitis. There is evidence of epithelialization. The ulcerations appear smaller. Dimensions are documented elsewhere. There is a small amount of bioburden. Skin: No rashes Wound Measurements and Assessment WC - Nurse 1 - General Ulcer Measurement Start: 02/25/20 08:14 Freq: Status: Active Protocol: Activity Type Activity Date Activity User E-Sign Co-Sign Detail Recorded Client Recorded Date Recorded By Document 03/17/20 08:13 JOSE [id number] 03/17/20 08:22 JOSE 03/17/20 08:13 Wound Center Nurse 1 [Ulcer Assessment] #3 LATERAL RLE -Combined with other wound No -Current Size (cm) - Length 1.0 -Current Size (cm) - Width 0.8 -Current Size (cm) - Depth 0.1 -Total Square Cm 0.80 -Photo Taken No -Epithelialization Medium 34-66% -Tunneling No -Undermining/Tunneling No -Circular Undermining No -Exudate Amt Large -Exudate Type Serosanguineous -Wound Margin Flat & Intact -Granulation Amt Medium (34-66%) -Granulation Quality Red -Slough/Fibrin Yes -Necrosis Amt Small (1-33%) -Necrotic Tissue Type Adherent Slough -Structure Exposed N/A -Texture (Ketty-wound Skin Appearance) Assessed, Localized Edema -Moisture (Ketty-wound Skin Appearance Assessed,Dry/ ) Scaly -Color (Ketty-wound Skin Appearance) Assessed -Temperature (Ketty-wound Skin No Abnormality Appearance) (Pt Warm) -Tenderness on Palpation (Ketty-wound No Skin Appearance) -Ulcer Cleansing Rinsed/ Irrigated with Saline -Foul Odor after Cleansing No -Anesthetic Used 4% Lidocaine Solution #2 R Vaz -Combined with other wound No -Current Size (cm) - Length 0.1 -Current Size (cm) - Width 0.1 -Current Size (cm) - Depth 0.1 -Total Square Cm 0.01 -Photo Taken No -Epithelialization Medium 34-66% -Tunneling No -Undermining/Tunneling No -Circular Undermining No -Exudate Amt None Present -Wound Margin Indistinct, Non -Visible -Granulation Amt None Present (0 %) -Slough/Fibrin Yes -Necrosis Amt Large (67-100%) -Necrotic Tissue Type Adherent Slough -Structure Exposed N/A -Texture (Ketty-wound Skin Appearance) Assessed, Localized Edema -Moisture (Ketty-wound Skin Appearance Assessed,Dry/ ) Scaly -Color (Ketty-wound Skin Appearance) Assessed -Temperature (Ketty-wound Skin No Abnormality Appearance) (Pt Warm) -Tenderness on Palpation (Ketty-wound No Skin Appearance) -Ulcer Cleansing Wound Cleanser -Foul Odor after Cleansing No -Anesthetic Used 4% Lidocaine Solution [Edema Assessment] -Lower Limb Edema Present Yes -Right Calf (cm) 41.0 -Right Ankle (cm) 23.0 ELLIOTT - Nurse 3 - General Ulcer D/C NN Start: 02/25/20 08:14 Freq: Status: Active Protocol: Activity Type Activity Date Activity User E-Sign Co-Sign Detail Recorded Client Recorded Date Recorded By Document 03/17/20 08:51 [id number] 03/17/20 08:51 03/17/20 08:51 Wound Care Nurse 3 [Wound Dressing] #3 LATERAL RLE -Primary Dressing Covered/Secured Dry Gauze, with Secured with Tape #2 R Vaz -Primary Dressing Covered/Secured Dry Gauze, with Secured with Tape Pain Scale: 0-10 Numeric [Pain] -Is Patient Pain Free? Yes - Visit Discharge [Visit Discharge Information] -Discharge Condition Stable -Ambulatory Status Ambulatory -Transportation Private Auto -Medication Reconcilliation completed Yes & provided to patient/care provider -Clinical Summary of Care Provided Yes Musculoskeletal: No Muscle Wasting Neurological: Cranial nerves II-XII grossly intact, Neuro grossly intact Psych/Mental Status: Normal Affect, Appropriate, Alert and oriented to time, place, person, mood and affect Debridement Note Post-Debridement Measurements/Treatment - Nurse 2 - General Ulcer CM Notes Start: 02/25/20 08:14 Freq: Status: Active Protocol: Activity Type Activity Date Activity User E-Sign Co-Sign Detail Recorded Client Recorded Date Recorded By Document 02/25/20 15:58 PL [id number] 02/25/20 16:13 PL Document 03/03/20 09:39 PL [id number] 03/03/20 09:43 PL Document 03/10/20 12:13 PL [id number] 03/10/20 12:17 PL 02/25/20 03/03/20 03/10/20 15:58 09:39 12:13 Wound Center Nurse 2 #3 LATERAL RLE -Time 08:39 08:33 08:30 -Correct Patient Yes Yes Yes -Correct Side, Site, Position Yes Yes Yes -Correct Procedure Yes Yes Yes -Procedure Performed Yes Yes Yes -Type of Procedure Debridement Debridement Debridement -Clinical Debridement Subcutaneous Subcutaneous Subcutaneous -Tissue Removed Subcutaneous Subcutaneous Subcutaneous -Post Debridement (cm) - Length 0.5 1 0.7 -Post Debridement (cm) - Width 0.5 0.6 0.6 -Post Debridement (cm) - Depth 0.1 0.1 0.2 -Total Square (Post) (cm) 0.25 0.6 0.42 -Area of Debridement (cm) - Length 0.5 1 0.7 -Area of Debridement (cm) - Width 0.5 0.6 0.6 -Total Square (Area) (cm) 0.25 0.6 0.42 -Tunneling No No No -Undermining/Tunneling No No No -Circular Undermining No No No -Wound/Ulcer Outcome Not Healed Not Healed Not Healed -Ulcer Cleansing Rinsed/ Rinsed/ Rinsed/ Irrigated with Irrigated with Irrigated with Saline Saline Saline -Foul Odor after Cleansing No No No -Bioengineered Tissue No Yes No -Type of Bioengineered Tissue Epifix -Expiration Date 10/22/24 -Product Lot Number [id number] -Percent Used 100 -Saline Lot Number [id number] -Bleeding Controlled with Pressure -Treatment Response Procedure Tolerated Well -Debridement - Subq, 1st 20sq cm No No No -Apply Skin Sub - 1st 25 sq cm - Legs 1 -Epifix (per sq cm) 4 #2 R Vaz -Time 08:39 08:33 08:30 -Correct Patient Yes Yes Yes -Correct Side, Site, Position Yes Yes Yes -Correct Procedure Yes Yes Yes -Procedure Performed Yes Yes Yes -Type of Procedure Debridement Debridement Debridement -Clinical Debridement Subcutaneous Subcutaneous Subcutaneous -Tissue Removed Subcutaneous Subcutaneous Subcutaneous -Post Debridement (cm) - Length 1 0.4 0.8 -Post Debridement (cm) - Width 1.8 0.4 0.1 -Post Debridement (cm) - Depth 0.1 0.1 0.1 -Total Square (Post) (cm) 1.8 0.16 0.08 -Area of Debridement (cm) - Length 1 0.4 0.8 -Area of Debridement (cm) - Width 1.8 0.4 1 -Total Square (Area) (cm) 1.8 0.16 0.8 -Tunneling No No No -Undermining/Tunneling No No No -Circular Undermining No No No -Wound/Ulcer Outcome Not Healed Not Healed Not Healed -Ulcer Cleansing Rinsed/ Rinsed/ Rinsed/ Irrigated with Irrigated with Irrigated with Saline Saline Saline -Foul Odor after Cleansing No No No -Bioengineered Tissue Yes No Yes -Type of Bioengineered Tissue Epifix Mesh Epifix -Expiration Date 11/22/24 10/22/24 -Product Lot Number [id number] -Percent Used 100 100 -Saline Lot Number [id number] -Bleeding Controlled with Pressure Pressure Pressure -Treatment Response Procedure Procedure Procedure Tolerated Well Tolerated Well Tolerated Well -Debridement - Subq, 1st 20sq cm No No No -Apply Skin Sub - 1st 25 sq cm - Legs 1 1 -Epifix (per sq cm) 4 -Epifix Mesh (per sq cm) 11 Pain Scale: 0-10 Numeric Is Patient Pain Free? Yes Yes Yes WC - Nurse 3 - General Ulcer D/C NN Start: 02/25/20 08:14 Freq: Status: Active Protocol: Activity Type Activity Date Activity User E-Sign Co-Sign Detail Recorded Client Recorded Date Recorded By Document 02/25/20 09:01 DL [id number] 02/25/20 09:02 DL Document 03/03/20 09:39 PL [id number] 03/03/20 09:43 PL Document 03/10/20 08:48 DL [id number] 03/10/20 08:49 DL Document 03/17/20 08:51 JF [id number] 03/17/20 08:51 JF 02/25/20 03/03/20 03/10/20 09:01 09:39 08:48 Wound Care Nurse 3 #3 LATERAL RLE -Ulcer Cleansing Rinsed/ Irrigated with Saline -Foul Odor after Cleansing No No No -Other Dressing Epifix Epifix -Primary Dressing Covered/Secured with Dry Gauze, Dry Gauze, Dry Gauze, Secured with Secured with Secured with Tape Tape Tape #2 R Vaz -Ulcer Cleansing Rinsed/ Irrigated with Saline -Foul Odor after Cleansing No No No -Other Dressing Epifix epifix -Primary Dressing Covered/Secured with Dry Gauze, Dry Gauze, Dry Gauze, Secured with Secured with Secured with Tape Tape Tape Right -Tubular Bandage Single Layer -Size of Tubigrip Used Size C -Size C ($) 1 -Other tubigrips Treatment Response Procedure Tolerated Well Pain Scale: 0-10 Numeric Is Patient Pain Free? Yes Yes Yes WC - Visit Discharge Discharge Condition Stable Stable Stable Ambulatory Status Ambulatory Ambulatory Ambulatory Transportation Private Auto Private Auto Private Auto Medication Reconcilliation completed & provided to patient/care provider Clinical Summary of Care Provided Yes Notes: Pt to apply tubigrips at home. 03/17/20 08:51 Wound Care Nurse 3 #3 LATERAL RLE -Ulcer Cleansing -Foul Odor after Cleansing -Other Dressing -Primary Dressing Covered/Secured with Dry Gauze, Secured with Tape #2 R Vaz -Ulcer Cleansing -Foul Odor after Cleansing -Other Dressing -Primary Dressing Covered/Secured with Dry Gauze, Secured with Tape Right -Tubular Bandage -Size of Tubigrip Used -Size C ($) -Other Treatment Response Pain Scale: 0-10 Numeric Is Patient Pain Free? Yes WC - Visit Discharge Discharge Condition Stable Ambulatory Status Ambulatory Transportation Private Auto Medication Reconcilliation completed & Yes provided to patient/care provider Clinical Summary of Care Provided Yes Notes: Laterality: Right - Lateral calf Type of Debridement: Excisional debridement Anesthesia Used: 5% Lidocaine Gel Depth: Down to and including healthy tissue, in the subcutaneous layer Percentage of wound debrided: 100 Instrument Used: 5mm curette Tissue Removed: Bioburden Severity: Fat Layer Exposed Amount of bleeding with debridement: Mild Bleeding Controlled with: Compression and gauze Patient tolerated procedure well Following a routine excisional debridement, which was well-tolerated, the decision was made to proceed with placement of an EpiFix allograft. An 18 mm allograft disc was selected for placement. Upon removal from its sterile packaging, the allograft was cut to the appropriate size and shape. It was placed over the 2 open wounds on the right lateral calf. Wound Veil was then placed, and anchored using Steri-Strips. A dry, sterile gauze dressing was placed. The patient tolerated the procedure well. This represents the 9th such allograft application. Assessment/Plan Active Problems Traumatic open wound of lower leg (Chronic) Leg swelling (Chronic) Edema of leg (Chronic) Diabetes mellitus (Chronic) Morbid obesity with BMI of 45.0-49.9, adult (Chronic) COPD (chronic obstructive pulmonary disease) (Chronic) Coronary artery arteriosclerosis (Chronic) Lumbar disc disease with radiculopathy (Chronic) Chronic wound of extremity (Chronic) Ulcer of calf due to diabetes mellitus (Chronic) Non-pressure chronic ulcer of right calf with fat layer exposed (Chronic) Assessment: This is a 59-year-old female who presented with traumatic wounds on the right lower extremity, of several months duration. The ulceration overlying the right bunion remains completely healed. A noninvasive lower extremity arterial study revealed normal ankle-brachial index on the right, and a normal digital brachial index on the right as well. The ulcerations on the anterolateral aspect of the right calf have shown slight improvement in recent weeks. A battery of diagnostic tests have been recently obtained, with results as follows: Glucose 172, BUN 19, creatinine 0.82, total protein 7.0, albumin 3.8, calcium 9.0, AST 32, alkaline phosphatase 70, ALT 47, total bilirubin 0.40, sodium 136, potassium 4.5, chloride 103, serum prealbumin 31.2, hemoglobin A1c 8.9, white blood count 6.0, hemoglobin 13.2, hematocrit 41.3, platelets 181,000. According to the patient, her blood sugars continue to run around 150 each day, and she indicates that she is consuming a well-balanced and nutritious diet. At this juncture, there has been improvement in recent weeks, apparently due to the use of an allograft. Plan: Patient has been counseled as to the appropriate foot care necessary in diabetic patients. Patient has been strongly urged to seek evaluation by a rectifying attendant, for the fitting of appropriate footwear. Furthermore, frequent inspection of the patient's feet, appropriate toenail trimming by professional, etc., have been recommended. Patient has been advised to optimize her glycemic control. Adequate nutrition has been advised. We have applied an EpiFix allograft today, the 9th such application, which is to remain in place, undisturbed, until the patient returns in 1 week. The patient is to continue wearing her graduated compression stockings of 20 to 30 mmHg compression on a daily basis. The patient is to continue elevating her legs as much as possible. She is to avoid prolonged idle sitting. The patient has been encouraged to assure adequate nutrition. Optimizing glycemic control has also been advised. Weight loss has also been recommended. She will follow-up in our clinic in 1 week. The patient's recent wound culture was negative. Influenza vaccine was not administered today. The patient is not a smoker. Patient weighs 265 pounds. She stands 5 feet 4 inches tall. Her BMI is 45.5, which places her in a class III category. Weight loss has been recommended, and collaboration with the patient's primary care physician has been recommended.
== END 2020-03-23 23:59 ==
LOC: WC 08:00
PROVIDERS: PCP Nurse Practitioner Primary Care; Referring Provider Surgery; Visit Provider Surgery
DX: E11.622 Type 2 diabetes mellitus with other skin ulcer (principal); L97.212 Non-pressure chronic ulcer of right calf with fat layer exposed; M51.16 Intervertebral disc disorders with radiculopathy, lumbar region; I25.10 Atherosclerotic heart disease of native coronary artery without angina pectoris; E66.01 Morbid (severe) obesity due to excess calories; J44.9 Chronic obstructive pulmonary disease, unspecified; S81.801D Unspecified open wound, right lower leg, subsequent encounter; M21.611 Bunion of right foot; Z68.42 Body mass index [BMI] 45.0-49.9, adult; Z79.4 Long term (current) use of insulin; Z79.82 Long term (current) use of aspirin; Z95.5 Presence of coronary angioplasty implant and graft; M79.89 Other specified soft tissue disorders
CPT/HCPCS: 15271; Q4186

== ENCOUNTER 2020-04-14 08:00 | Outpatient (RCR) | payer OTHER, SELFPAY ==
[2020-03-24 00:22] VITALS: BP 117/78; PULSE 114; RESP 16; TEMP 36.1
[2020-03-24 08:08] VITALS: BP 151/52; PULSE 100; RESP 20; TEMP 36.4; BMI 44.9
--- NOTE | 2020-03-24 08:34 | HP.PCM_ITS ---
(1) Traumatic open wound of lower leg Status: Chronic Qualifiers: Code(s): S81.809A - Unspecified open wound, unspecified lower leg, initial encounter (2) Leg swelling Status: Chronic Code(s): M79.89 - Other specified soft tissue disorders (3) Edema of leg Status: Chronic Code(s): R60.0 - Localized edema (4) Diabetes mellitus Status: Chronic Code(s): E11.9 - Type 2 diabetes mellitus without complications (5) Morbid obesity with BMI of 45.0-49.9, adult Status: Chronic Code(s): E66.01 - Morbid (severe) obesity due to excess calories; Z68.42 - Body mass index [BMI] 45.0-49.9, adult (6) COPD (chronic obstructive pulmonary disease) Status: Chronic Code(s): J44.9 - Chronic obstructive pulmonary disease, unspecified (7) Coronary artery arteriosclerosis Status: Chronic Code(s): I25.10 - Atherosclerotic heart disease of [place] coronary artery without angina pectoris (8) Diabetic foot wound, [place] Grade 1 Status: Resolved (9) Ulcer of foot due to diabetes Status: Resolved Code(s): E11.621 - Type 2 diabetes mellitus with foot ulcer; L97.509 - Non-pressure chronic ulcer of other part of unspecified foot with unspecified severity (10) Lumbar disc disease with radiculopathy Status: Chronic Code(s): M51.16 - Intervertebral disc disorders with radiculopathy, lumbar region (11) Chronic wound of extremity Status: Chronic (12) Ulcer of calf due to diabetes mellitus Status: Chronic Code(s): E11.622 - Type 2 diabetes mellitus with other skin ulcer; L97.209 - Non-pressure chronic ulcer of unspecified calf with unspecified severity (13) Non-pressure chronic ulcer of right calf with fat layer exposed Status: Chronic Code(s): L97.212 - Non-pressure chronic ulcer of right calf with fat layer exposed History of Present Illness Date of Service: 03/24/20 Chief Complaint: Chronic open wound of the right lower extremity secondary to diabetes mellitus, Diabetic right foot wound - Hubbard Grade 1 History of Wound: This is a 59-year-old diabetic female who has been previously treated in our facility for a traumatic wound on the left lower extremity. She presented this time with wounds in her right lower extremity. There are 2 wounds involving the right calf, which were initially traumatic in origin. They are located on the right anterior tibial surface and on the right lateral calf. These occurred due to impact with a car door in December 2018. It is felt, however, that the failure of the patient's wounds to heal is due to her longstan ding diabetes mellitus. The patient has been using Collagenase Santyl topically. She also developed a more recent ulceration on the right foot, located overlying a bunion, which has now subsequently healed. According the patient, this occurred as a result of a new pair of sneakers, which she obtained at a retail establishment. The patient is known to be diabetic, and her blood sugars appear to be reasonably well controlled, based upon the patient's account. The previous wound in the left lower extremity has remained healed. The patient has continued to implement conservative treatment measures previously recommended, including leg elevation, avoidance of idle standing and sitting, active lifestyle, attempts at weight loss, and the use of graduated compression stockings on a daily basis, of 20 to 30 mmHg compression. Past Medical History Past Medical History: Chronic Problems Traumatic open wound of lower leg (Chronic) Leg swelling (Chronic) Edema of leg (Chronic) Diabetes mellitus (Chronic) Morbid obesity with BMI of 45.0-49.9, adult (Chronic) COPD (chronic obstructive pulmonary disease) (Chronic) Coronary artery arteriosclerosis (Chronic) Lumbar disc disease with radiculopathy (Chronic) Chronic wound of extremity (Chronic) Ulcer of calf due to diabetes mellitus (Chronic) Non-pressure chronic ulcer of right calf with fat layer exposed (Chronic) Surgical History: - - The patient has a history of coronary artery stent placement. She has undergone open reduction and internal fixation of a left tibia fracture. She underwent right meniscus repair in the past. She is a Ab0. Allergies/Adverse Reactions: Allergies bee venom protein (honey bee) Adverse Reaction (Verified 03/19/19 09:02) Swelling Home Medications: Ambulatory Orders Medication Instructions Recorded Aspirin E.C. [Ecotrin] 81 mg PO DAILY@0800 09/03/13 Hydrocodone/Acetaminophen [Vicodin 1 - 2 tablet PO Q6H PRN PRN 09/03/13 5-300 mg Tablet] Lisinopril 10 mg PO DAILY 09/03/13 Metformin [Metformin HCl] 1,000 mg PO BID 09/03/13 Metoprolol Tartrate 50 mg PO DAILY 09/03/13 Dulaglutide [Trulicity] 0.75 mg SQ 01/02/18 Fluticasone/Vilanterol [Breo 1 each IH 01/02/18 Ellipta 200-25 Mcg INH] Insulin Glargine,Hum.rec.anlog 56 unit BID 01/02/18 [Lantus] Sitagliptin Phosphate [Januvia] 25 mg PO DAILY 01/02/18 Tiotropium [place] [Spiriva] 18 mcg IH 01/02/18 - Family History Paternal - - The patient's father at the age of 78 with history of chronic obstructive pulmonary disease. The patient's mother at the age of 84 with history of chronic obstructive pulmonary disease. Smoking Status: Former smoker Tobacco Use: Non-smoker Review of Systems Constitutional: Denies: Chills, Fever, Weight Change Eyes: Denies: Pain, Vision Change HEENT: Denies: Difficulty Hearing, Difficulty Swallowing, Sinus Congestion Cardiovascular: Denies: Chest Pain, Palpitations Respiratory: Denies: Cough, Shortness of Breath Gastrointestinal: Denies: Diarrhea, Nausea, Vomiting Genitourinary: Denies: Dysuria, Hematuria Endocrine: Denies: Heat/ Cold Intolerance, Polydipsia, Polyuria Hematologic/ Lymphatic: Denies: Easy Bruising, Easy Bleeding - Physical Exam Vital Signs Temp Pulse Resp BP 97.5 F L 100 20 H 151/52 H 03/24/20 08:08 03/24/20 08:08 03/24/20 08:08 03/24/20 08:08 General: Alert, Oriented x3, Cooperative, No apparent distress, Well developed, Well nourished HEENT: Atraumatic, PERRLA, EOMI, Normocephalic Oral: Moist Mucosa Neck: No JVD Lungs: Normal air movement Abdomen: Non-Distended, Obese Extremities: No clubbing, No cyanosis, No edema, No Calf Tenderness, - - The ulcerations persist on the right lateral calf, though are smaller in size. Dimensions are documented elsewhere. There is no sign of infection or cellulitis. There is a small amount of bioburden. Skin: No rashes Wound Measurements and Assessment WC - Nurse 1 - General Ulcer Measurement Start: 03/24/20 08:08 Freq: Status: Active Protocol: Activity Type Activity Date Activity User E-Sign Co-Sign Detail Recorded Client Recorded Date Recorded By Document 03/24/20 08:08 MARCUS [id number] 03/24/20 08:17 MARCUS 03/24/20 08:08 Wound Center Nurse 1 [Ulcer Assessment] #3 LATERAL RLE -Current Size (cm) - Length 0.9 -Current Size (cm) - Width 0.4 -Current Size (cm) - Depth 0.1 -Total Square Cm 0.36 -Photo Taken No -Exudate Amt Small -Exudate Type Serosanguineous -Wound Margin Distinct, Outline Attached -Granulation Amt Large (67-100%) -Granulation Quality [place] -Necrosis Amt None Present (0 %) -Structure Exposed N/A -Texture (Ketty-wound Skin Appearance) Scarring -Moisture (Ketty-wound Skin Appearance No Abnormality ) -Color (Ketty-wound Skin Appearance) No Abnormality -Temperature (Ketty-wound Skin No Abnormality Appearance) (Pt Warm) -Tenderness on Palpation (Ketty-wound No Skin Appearance) -Ulcer Cleansing Rinsed/ Irrigated with Saline -Foul Odor after Cleansing No -Anesthetic Used 4% Lidocaine Solution #2 R Vaz -Current Size (cm) - Length 0.6 -Current Size (cm) - Width 1 -Current Size (cm) - Depth 0.1 -Total Square Cm 0.6 -Photo Taken No -Exudate Amt None Present -Wound Margin Thickened -Granulation Amt Small (1-33%) -Granulation Quality [place] -Necrosis Amt Large (67-100%) -Necrotic Tissue Type Adherent Slough -Structure Exposed N/A -Texture (Ketty-wound Skin Appearance) Scarring -Moisture (Ketty-wound Skin Appearance No Abnormality ) -Color (Ketty-wound Skin Appearance) No Abnormality -Temperature (Ketty-wound Skin No Abnormality Appearance) (Pt Warm) -Tenderness on Palpation (Ketty-wound No Skin Appearance) -Ulcer Cleansing Wound Cleanser -Foul Odor after Cleansing No -Anesthetic Used 4% Lidocaine Solution [Edema Assessment] -Right Calf (cm) 40 -Right Ankle (cm) 22.5 Musculoskeletal: No Muscle Wasting Neurological: Cranial nerves II-XII grossly intact, Neuro grossly intact Psych/Mental Status: Normal Affect, Appropriate, Alert and oriented to time, place, person, mood and affect Debridement Note Laterality: Right - Lateral calf Type of Debridement: Excisional debridement Anesthesia Used: 5% Lidocaine Gel Depth: Down to and including healthy tissue, in the subcutaneous layer Percentage of wound debrided: 100 Instrument Used: 5mm curette Tissue Removed: Bioburden Severity: Fat Layer Exposed Amount of bleeding with debridement: Mild Bleeding Controlled with: Compression and gauze Patient tolerated procedure well The lower of the 2 wounds appears to be essentially healed. The more superior wound is smaller in size. Dimensions are documented elsewhere. Following a routine excisional debridement, which was well-tolerated by the patient, an EpiFix allograft was applied. An 18 mm allograft was selected. Upon removal from its sterile packaging, it was applied topically to the superior wound in the appropriate orientation. Wound Veil was placed, and was anchored using Steri-Strips. The procedure was well-tolerated. A dry sterile gauze dressing was then placed over the entire site. This represents the 10th such application of an allograft. Assessment/Plan Assessment: This is a 59-year-old female who presented with traumatic wounds on the right lower extremity, of several months duration. The ulceration overlying the right bunion remains completely healed. A noninvasive lower extremity arterial study revealed normal ankle-brachial index on the right, and a normal digital brachial index on the right as well. The ulcerations on the anterolateral aspect of the right calf have shown slight improvement in recent weeks. A battery of diagnostic tests have been recently obtained, with results as follows: Glucose 172, BUN 19, creatinine 0.82, total protein 7.0, albumin 3.8, calcium 9.0, AST 32, alkaline phosphatase 70, ALT 47, total bilirubin 0.40, sodium 136, potassium 4.5, chloride 103, serum prealbumin 31.2, hemoglobin A1c 8.9, white blood count 6.0, hemoglobin 13.2, hematocrit 41.3, platelets 181,000. According to the patient, her blood sugars continue to run around 150 each day, and she indicates that she is consuming a well-balanced and nutritious diet. At this juncture, there has been improvement in recent weeks, apparently due to the use of an allograft. Plan: Patient has been counseled as to the appropriate foot care necessary in diabetic patients. Patient has been strongly urged to seek evaluation by a plate stacker, for the fitting of appropriate footwear. Furthermore, frequent inspection of the patient's feet, appropriate toenail trimming by professional, etc., have been recommended. Patient has been advised to optimize her glycemic control. Adequate nutrition has been advised. We have applied an EpiFix allograft today, the 10th such application, which is to remain in place, undisturbed, until the patient returns in 1 week. The patient is to continue wearing her graduated compression stockings of 20 to 30 mmHg compression on a daily basis. The patient is to continue elevating her legs as much as possible. She is to avoid prolonged idle sitting. The patient has been encouraged to assure adequate nutrition. Optimizing glycemic control has also been advised. Weight loss has also been recommended. She will follow-up in our clinic in 1 week. The patient's recent wound culture was negative. Influenza vaccine was not administered today. The patient is not a smoker. Patient weighs 265 po unds. She stands 5 feet 4 inches tall. Her BMI is 45.5, which places her in a class III category. Weight loss has been recommended, and collaboration with the patient's primary care physician has been recommended.
[2020-03-24 08:38] VITALS: BP 151/57; PULSE 82
[2020-03-31 08:08] VITALS: BP 156/70; PULSE 87; TEMP 35.8; BMI 44.9
--- NOTE | 2020-03-31 08:28 | PCM.WC.HP ---
(1) Traumatic open wound of lower leg Status: Chronic Qualifiers: Code(s): S81.809A - Unspecified open wound, unspecified lower leg, initial encounter (2) Leg swelling Status: Chronic Code(s): M79.89 - Other specified soft tissue disorders (3) Edema of leg Status: Chronic Code(s): R60.0 - Localized edema (4) Diabetes mellitus Status: Chronic Code(s): E11.9 - Type 2 diabetes mellitus without complications (5) Morbid obesity with BMI of 45.0-49.9, adult Status: Chronic Code(s): E66.01 - Morbid (severe) obesity due to excess calories; Z68.42 - Body mass index [BMI] 45.0-49.9, adult (6) COPD (chronic obstructive pulmonary disease) Status: Chronic Code(s): J44.9 - Chronic obstructive pulmonary disease, unspecified (7) Coronary artery arteriosclerosis Status: Chronic Code(s): I25.10 - Atherosclerotic heart disease of [place] coronary artery without angina pectoris (8) Diabetic foot wound, Hubbard Grade 1 Status: Resolved (9) Ulcer of foot due to diabetes Status: Resolved Code(s): E11.621 - Type 2 diabetes mellitus with foot ulcer; L97.509 - Non-pressure chronic ulcer of other part of unspecified foot with unspecified severity (10) Lumbar disc disease with radiculopathy Status: Chronic Code(s): M51.16 - Intervertebral disc disorders with radiculopathy, lumbar region (11) Chronic wound of extremity Status: Chronic (12) Ulcer of calf due to diabetes mellitus Status: Chronic Code(s): E11.622 - Type 2 diabetes mellitus with other skin ulcer; L97.209 - Non-pressure chronic ulcer of unspecified calf with unspecified severity (13) Non-pressure chronic ulcer of right calf with fat layer exposed Status: Chronic Code(s): L97.212 - Non-pressure chronic ulcer of right calf with fat layer exposed History of Present Illness Date of Service: 03/31/20 Chief Complaint: Chronic open wound of the right lower extremity secondary to diabetes mellitus, Diabetic right foot wound - Hubbard Grade 1 History of Wound: This is a 59-year-old diabetic female who has been previously treated in our facility for a traumatic wound on the left lower extremity. She presented this time with wounds in her right lower extremity. There are 2 wounds involving the right calf, which were initially traumatic in origin. They are located on the right anterior tibial surface and on the right lateral calf. These occurred due to impact with a car door in December 2018. It is felt, however, that the failure of the patient's wounds to heal is due to her longstanding diabetes mellitus. The patient has been using Collagenase Santyl topically. She also developed a more recent ulceration on the right foot, located overlying a bunion, which has now subsequently healed. According the patient, this occurred as a result of a new pair of sneakers, which she obtained at a retail establishment. The patient is known to be diabetic, and her blood sugars appear to be reasonably well controlled, based upon the patient's account. The previous wound in the left lower extremity has remained healed. The patient has continued to implement conservative treatment measures previously recommended, including leg elevation, avoidance of idle standing and sitting, active lifestyle, attempts at weight loss, and the use of graduated compression stockings on a daily basis, of 20 to 30 mmHg compression. Past Medical History Past Medical History: Chronic Problems Traumatic open wound of lower leg (Chronic) Leg swelling (Chronic) Edema of leg (Chronic) Diabetes mellitus (Chronic) Morbid obesity with BMI of 45.0-49.9, adult (Chronic) COPD (chronic obstructive pulmonary disease) (Chronic) Coronary artery arteriosclerosis (Chronic) Lumbar disc disease with radiculopathy (Chronic) Chronic wound of extremity (Chronic) Ulcer of calf due to diabetes mellitus (Chronic) Non-pressure chronic ulcer of right calf with fat layer exposed (Chronic) Surgical History: - - The patient has a history of coronary artery stent placement. She has undergone open reduction and internal fixation of a left tibia fracture. She underwent right meniscus repair in the past. She is a Ab0. Allergies/Adverse Reactions: Allergies bee venom protein (honey bee) Adverse Reaction (Verified 03/19/19 09:02) Swelling Home Medications: Ambulatory Orders Medication Instructions Recorded Aspirin E.C. [Ecotrin] 81 mg PO DAILY@0800 09/03/13 Hydrocodone/Acetaminophen [Vicodin 1 - 2 tablet PO Q6H PRN PRN 09/03/13 5-300 mg Tablet] Lisinopril 10 mg PO DAILY 09/03/13 Metformin [Metformin HCl] 1,000 mg PO BID 09/03/13 Metoprolol Tartrate 50 mg PO DAILY 09/03/13 Dulaglutide [Trulicity] 0.75 mg SQ 01/02/18 Fluticasone/Vilanterol [Breo 1 each IH 01/02/18 Ellipta 200-25 Mcg INH] Insulin Glargine,Hum.rec.anlog 56 unit BID 01/02/18 [Lantus] Sitagliptin Phosphate [Januvia] 25 mg PO DAILY 01/02/18 Tiotropium [place] [Spiriva] 18 mcg IH 01/02/18 - Family History Paternal - - The patient's father at the age of 78 with history of chronic obstructive pulmonary disease. The patient's mother at the age of 84 with history of chronic obstructive pulmonary disease. Smoking Status: Former smoker Tobacco Use: Non-smoker Review of Systems Constitutional: Denies: Chills, Fever, Weight Change Eyes: Denies: Pain, Vision Change HEENT: Denies: Difficulty Hearing, Difficulty Swallowing, Sinus Congestion Cardiovascular: Denies: Chest Pain, Palpitations Respiratory: Denies: Cough, Shortness of Breath Gastrointestinal: Denies: Diarrhea, Nausea, Vomiting Genitourinary: Denies: Dysuria, Hematuria Endocrine: Denies: Heat/ Cold Intolerance, Polydipsia, Polyuria Hematologic/ Lymphatic: Denies: Easy Bruising, Easy Bleeding - Physical Exam Vital Signs Temp Pulse Resp BP 96.5 F L 87 20 H 156/70 H 03/31/20 08:08 03/31/20 08:08 03/24/20 08:08 03/31/20 08:08 General: Alert, Oriented x3, Cooperative, No apparent distress, Well developed, Well nourished HEENT: Atraumatic, PERRLA, EOMI, Normocephalic Oral: Moist Mucosa Neck: No JVD Lungs: Normal air movement Abdomen: Non-Distended, Obese Extremities: No clubbing, No cyanosis, No edema, No Calf Tenderness Addt'l Wound Findings: The wounds on the patient's right lateral calf appear to be largely healed. There is some superficial eschar. There is no sign of infection or cellulitis. Skin: No rashes Wound Measurements and Assessment WC - Nurse 1 - General Ulcer Measurement Start: 03/24/20 08:08 Freq: Status: Active Protocol: Activity Type Activity Date Activity User E-Sign Co-Sign Detail Recorded Client Recorded Date Recorded By Document 03/31/20 08:08 KR [id number] 03/31/20 08:17 CALEB 03/31/20 08:08 Wound Center Nurse 1 [Ulcer Assessment] #3 LATERAL RLE -Combined with other wound No -Current Size (cm) - Length 0.1 -Current Size (cm) - Width 0.1 -Current Size (cm) - Depth 0.1 -Total Square Cm 0.01 -Exudate Amt None Present -Wound Margin Distinct, Outline Attached -Granulation Amt None Present (0 %) -Slough/Fibrin Yes -Necrosis Amt Large (67-100%) -Necrotic Tissue Type Adherent Slough -Color (Ketty-wound Skin Appearance) No Abnormality, Assessed -Temperature (Ketty-wound Skin No Abnormality Appearance) (Pt Warm) -Tenderness on Palpation (Ketty-wound No Skin Appearance) -Ulcer Cleansing soap and water -Anesthetic Used 4% Lidocaine Solution #2 R Vaz -Current Size (cm) - Length 0.1 -Current Size (cm) - Width 0.1 -Current Size (cm) - Depth 0.1 -Total Square Cm 0.01 -Exudate Amt None Present -Wound Margin Distinct, Outline Attached -Granulation Amt None Present (0 %) -Slough/Fibrin Yes -Necrosis Amt Large (67-100%) -Necrotic Tissue Type Adherent Slough -Texture (Ketty-wound Skin Appearance) No Abnormality, Assessed -Color (Ketty-wound Skin Appearance) No Abnormality, Assessed -Temperature (Ketty-wound Skin No Abnormality Appearance) (Pt Warm) -Ulcer Cleansing soap and water -Foul Odor after Cleansing No -Anesthetic Used 4% Lidocaine Solution [Edema Assessment] -Right Calf (cm) 41.8 -Right Ankle (cm) 24.5 Musculoskeletal: No Muscle Wasting Neurological: Cranial nerves II-XII grossly intact, Neuro grossly intact Psych/Mental Status: Normal Affect, Appropriate, Alert and oriented to time, place, person, mood and affect Debridement Note Post-Debridement Measurements/Treatment WC - Nurse 2 - General Ulcer CM Notes Start: 03/24/20 08:08 Freq: Status: Active Protocol: Activity Type Activity Date Activity User E-Sign Co-Sign Detail Recorded Client Recorded Date Recorded By Document 03/24/20 10:20 PATSY [id number] 03/24/20 10:24 PL 03/24/20 10:20 Wound Center Nurse 2 #3 LATERAL RLE -Time 08:23 -Correct Patient Yes -Correct Side, Site, Position Yes -Correct Procedure Yes -Procedure Performed Yes -Type of Procedure Debridement -Clinical Debridement Subcutaneous -Tissue Removed Subcutaneous -Post Debridement (cm) - Length 0.5 -Post Debridement (cm) - Width 0.3 -Post Debridement (cm) - Depth 0.1 -Total Square (Post) (cm) 0.15 -Area of Debridement (cm) - Length 0.5 -Area of Debridement (cm) - Width 0.3 -Total Square (Area) (cm) 0.15 -Tunneling No -Undermining/Tunneling No -Circular Undermining No -Wound/Ulcer Outcome Not Healed -Ulcer Cleansing Rinsed/ Irrigated with Saline -Foul Odor after Cleansing No -Bioengineered Tissue Yes -Type of Bioengineered Tissue Epifix 18mm Disc -Expiration Date 12/23/24 -Product Lot Number [id number] -Percent Used 100 -Saline Lot Number [id number] -Bleeding Controlled with Pressure -Treatment Response Procedure Tolerated Well -Debridement - Subq, 1st 20sq cm No -Apply Skin Sub - 1st 25 sq cm - Legs 1 -Epifix 18mm Disc 3 #2 R Vaz -Procedure Performed No Pain Scale: 0-10 Numeric Is Patient Pain Free? Yes - Nurse 3 - General Ulcer D/C NN Start: 03/24/20 08:08 Freq: Status: Active Protocol: Activity Type Activity Date Activity User E-Sign Co-Sign Detail Recorded Client Recorded Date Recorded By Document 03/24/20 08:38 DL [id number] 03/24/20 08:40 DL 03/24/20 08:38 Wound Care Nurse 3 #3 LATERAL RLE -Foul Odor after Cleansing No -Primary Dressing Covered/Secured with Dry Gauze, Secured with Tape #2 R Vaz -Foul Odor after Cleansing No -Primary Dressing Covered/Secured with Dry Gauze, Secured with Tape Treatment Response Procedure Tolerated Well Vital Signs Pulse Rate (60-100) 82 Pulse Location Monitor Blood Pressure (90/60-120/80) 151/57 H Blood Pressure Mean (mm Hg) 88 Source Monitor Pain Scale: 0-10 Numeric Is Patient Pain Free? Yes WC - Visit Discharge Discharge Condition Stable Ambulatory Status Ambulatory Transportation Private Auto No debridement was completed today Assessment/Plan Active Problems Traumatic open wound of lower leg (Chronic) Leg swelling (Chronic) Edema of leg (Chronic) Diabetes mellitus (Chronic) Morbid obesity with BMI of 45.0-49.9, adult (Chronic) COPD (chronic obstructive pulmonary disease) (Chronic) Coronary artery arteriosclerosis (Chronic) Lumbar disc disease with radiculopathy (Chronic) Chronic wound of extremity (Chronic) Ulcer of calf due to diabetes mellitus (Chronic) Non-pressure chronic ulcer of right calf with fat layer exposed (Chronic) Assessment: This is a 59-year-old obese diabetic with 2 adjacent wounds on the right lateral calf. We have recently used EpiFix allografts for the purpose of wound healing. 10 such allograft have been applied, the most recent of which was applied 1 week ago. Patient appears to be doing well. Her wounds currently appear to be healed, though there is some eschar remaining on the surface of each wound. Plan: At this juncture, we are to continue to observe the status of the patient's right lateral calf wounds. A debridement was not performed today, allowing the superficial eschar to remain in place. We are to observe the wounds serially, and arrange for the patient to return in 2 weeks for reassessment. She is to maintain a dry sterile gauze dressing over each of the 2 right lateral calf wounds. She will return in 2 weeks for reassessment. She is to continue current treatment measures, including optimizing her nutritional intake, optimizing her glycemic control, and implementing measures to minimize swelling, such as leg elevation, avoidance of prolonged idle sitting, and the use of graduated compression stockings of 20 to 30 mmHg compression. Weight optimization has been recommended. The patient is not a smoker. Influenza vaccine was not administered today.
--- NOTE | 2020-03-31 08:55 | HP.PCM_ITS ---
(1) Traumatic open wound of lower leg Status: Chronic Qualifiers: Code(s): S81.809A - Unspecified open wound, unspecified lower leg, initial encounter (2) Leg swelling Status: Chronic Code(s): M79.89 - Other specified soft tissue disorders (3) Edema of leg Status: Chronic Code(s): R60.0 - Localized edema (4) Diabetes mellitus Status: Chronic Code(s): E11.9 - Type 2 diabetes mellitus without complications (5) Morbid obesity with BMI of 45.0-49.9, adult Status: Chronic Code(s): E66.01 - Morbid (severe) obesity due to excess calories; Z68.42 - Body mass index [BMI] 45.0-49.9, adult (6) COPD (chronic obstructive pulmonary disease) Status: Chronic Code(s): J44.9 - Chronic obstructive pulmonary disease, unspecified (7) Coronary artery arteriosclerosis Status: Chronic Code(s): I25.10 - Atherosclerotic heart disease of [place] coronary artery without angina pectoris (8) Diabetic foot wound, Hubbard Grade 1 Status: Resolved (9) Ulcer of foot due to diabetes Status: Resolved Code(s): E11.621 - Type 2 diabetes mellitus with foot ulcer; L97.509 - Non-pressure chronic ulcer of other part of unspecified foot with unspecified severity (10) Lumbar disc disease with radiculopathy Status: Chronic Code(s): M51.16 - Intervertebral disc disorders with radiculopathy, lumbar region (11) Chronic wound of extremity Status: Chronic (12) Ulcer of calf due to diabetes mellitus Status: Chronic Code(s): E11.622 - Type 2 diabetes mellitus with other skin ulcer; L97.209 - Non-pressure chronic ulcer of unspecified calf with unspecified severity (13) Non-pressure chronic ulcer of right calf with fat layer exposed Status: Chronic Code(s): L97.212 - Non-pressure chronic ulcer of right calf with fat layer exposed History of Present Illness Date of Service: 03/31/20 Chief Complaint: Chronic open wound of the right lower extremity secondary to diabetes mellitus, Diabetic right foot wound - Hubbard Grade 1 History of Wound: This is a 59-year-old diabetic female who has been previously treated in our facility for a traumatic wound on the left lower extremity. She presented this time with wounds in her right lower extremity. There are 2 wounds involving the right calf, which were initially traumatic in origin. They are located on the right anterior tibial surface and on the right lateral calf. These occurred due to impact with a car door in December 2018. It is felt, however, that the failure of the patient's wounds to heal is due to her [place] diabetes mellitus. The patient has been using Collagenase Santyl topically. She also developed a more recent ulceration on the right foot, located overlying a bunion, which has now subsequently healed. According the patient, this occurred as a result of a new pair of sneakers, which she obtained at a retail establishment. The patient is known to be diabetic, and her blood sugars appear to be reasonably well controlled, based upon the patient's account. The previous wound in the left lower extremity has remained healed. The patient has continued to implement conservative treatment measures previously recommended, including leg elevation, avoidance of idle standing and sitting, active lifestyle, attempts at weight loss, and the use of graduated compression stockings on a daily basis, of 20 to 30 mmHg compression. Past Medical History Past Medical History: Chronic Problems Traumatic open wound of lower leg (Chronic) Leg swelling (Chronic) Edema of leg (Chronic) Diabetes mellitus (Chronic) Morbid obesity with BMI of 45.0-49.9, adult (Chronic) COPD (chronic obstructive pulmonary disease) (Chronic) Coronary artery arteriosclerosis (Chronic) Lumbar disc disease with radiculopathy (Chronic) Chronic wound of extremity (Chronic) Ulcer of calf due to diabetes mellitus (Chronic) Non-pressure chronic ulcer of right calf with fat layer exposed (Chronic) Surgical History: - - The patient has a history of coronary artery stent placement. She has undergone open reduction and internal fixation of a left tibia fracture. She underwent right meniscus repair in the past. She is a Ab0. Allergies/Adverse Reactions: Allergies bee venom protein (honey bee) Adverse Reaction (Verified 03/19/19 09:02) Swelling Home Medications: Ambulatory Orders Medication Instructions Recorded Aspirin E.C. [Ecotrin] 81 mg PO DAILY@0800 09/03/13 Hydrocodone/Acetaminophen [Vicodin 1 - 2 tablet PO Q6H PRN PRN 09/03/13 5-300 mg Tablet] Lisinopril 10 mg PO DAILY 09/03/13 Metformin [Metformin HCl] 1,000 mg PO BID 09/03/13 Metoprolol Tartrate 50 mg PO DAILY 09/03/13 Dulaglutide [Trulicity] 0.75 mg SQ 01/02/18 Fluticasone/Vilanterol [Breo 1 each IH 01/02/18 Ellipta 200-25 Mcg INH] Insulin Glargine,Hum.rec.anlog 56 unit BID 01/02/18 [Lantus] Sitagliptin Phosphate [Januvia] 25 mg PO DAILY 01/02/18 Tiotropium [place] [Spiriva] 18 mcg IH 01/02/18 - Family History Paternal - - The patient's father at the age of 78 with history of chronic obstructive pulmonary disease. The patient's mother at the age of 84 with history of chronic obstructive pulmonary disease. Smoking Status: Former smoker Tobacco Use: Non-smoker - Physical Exam Vital Signs Temp Pulse Resp BP 96.5 F L 87 20 H 156/70 H 03/31/20 08:08 03/31/20 08:08 03/24/20 08:08 03/31/20 08:08 Wound Measurements and Assessment WC - Nurse 1 - General Ulcer Measurement Start: 03/24/20 08:08 Freq: Status: Active Protocol: Activity Type Activity Date Activity User E-Sign Co-Sign Detail Recorded Client Recorded Date Recorded By Document 03/31/20 08:08 CALEB [id number] 03/31/20 08:17 CALEB 03/31/20 08:08 Wound Center Nurse 1 [Ulcer Assessment] #3 LATERAL RLE -Combined with other wound No -Current Size (cm) - Length 0.1 -Current Size (cm) - Width 0.1 -Current Size (cm) - Depth 0.1 -Total Square Cm 0.01 -Exudate Amt None Present -Wound Margin Distinct, Outline Attached -Granulation Amt None Present (0 %) -Slough/Fibrin Yes -Necrosis Amt Large (67-100%) -Necrotic Tissue Type Adherent Slough -Color (Ketty-wound Skin Appearance) No Abnormality, Assessed -Temperature (Ketty-wound Skin No Abnormality Appearance) (Pt Warm) -Tenderness on Palpation (Ketty-wound No Skin Appearance) -Ulcer Cleansing soap and water -Anesthetic Used 4% Lidocaine Solution #2 R Vaz -Current Size (cm) - Length 0.1 -Current Size (cm) - Width 0.1 -Current Size (cm) - Depth 0.1 -Total Square Cm 0.01 -Exudate Amt None Present -Wound Margin Distinct, Outline Attached -Granulation Amt None Present (0 %) -Slough/Fibrin Yes -Necrosis Amt Large (67-100%) -Necrotic Tissue Type Adherent Slough -Texture (Ketty-wound Skin Appearance) No Abnormality, Assessed -Color (Ketty-wound Skin Appearance) No Abnormality, Assessed -Temperature (Ketty-wound Skin No Abnormality Appearance) (Pt Warm) -Ulcer Cleansing soap and water -Foul Odor after Cleansing No -Anesthetic Used 4% Lidocaine Solution [Edema Assessment] -Right Calf (cm) 41.8 -Right Ankle (cm) 24.5 WC - Nurse 3 - General Ulcer D/C NN Start: 03/24/20 08:08 Freq: Status: Active Protocol: Activity Type Activity Date Activity User E-Sign Co-Sign Detail Recorded Client Recorded Date Recorded By Document 03/31/20 08:33 MW [id number] 03/31/20 08:35 MW 03/31/20 08:33 Wound Care Nurse 3 [Wound Dressing] #3 LATERAL RLE -Ulcer Cleansing Not Cleansed -Foul Odor after Cleansing No -Negative Pressure Wound Therapy N/A -Primary Dressing Covered/Secured Dry Gauze, with Secured with Tape #2 R Vaz -Ulcer Cleansing Not Cleansed -Foul Odor after Cleansing No -Negative Pressure Wound Therapy N/A -Primary Dressing Covered/Secured Dry Gauze, with Secured with Tape [Compression Applied] Right -Other will apply compression at home [Post Procedure Tolerated] -Treatment Response Procedure Tolerated Well Pain Scale: 0-10 Numeric [Pain] -Is Patient Pain Free? Yes Teaching: Wound Center [Wound Center Education] (Items with an * have Printed Materials Available- Please identify what is given to patient under the Teaching materials given to patient and caregiver Section. Dressing Your Wound -Person Taught Patient -Teaching Method Discussion, Demonstration -Response to teaching Verbalize understanding WC - Visit Discharge [Visit Discharge Information] -Discharge Condition Stable -Ambulatory Status Ambulatory -Transportation Private Auto -Accompanied by self -Medication Reconcilliation completed No & provided to patient/care provider -Clinical Summary of Care Provided Yes Debridement Note Post-Debridement Measurements/Treatment WC - Nurse 2 - General Ulcer CM Notes Start: 03/24/20 08:08 Freq: Status: Active Protocol: Activity Type Activity Date Activity User E-Sign Co-Sign Detail Recorded Client Recorded Date Recorded By Document 03/24/20 10:20 PL [id number] 03/24/20 10:24 PL 03/24/20 10:20 Wound Center Nurse 2 #3 LATERAL RLE -Time 08:23 -Correct Patient Yes -Correct Side, Site, Position Yes -Correct Procedure Yes -Procedure Performed Yes -Type of Procedure Debridement -Clinical Debridement Subcutaneous -Tissue Removed Subcutaneous -Post Debridement (cm) - Length 0.5 -Post Debridement (cm) - Width 0.3 -Post Debridement (cm) - Depth 0.1 -Total Square (Post) (cm) 0.15 -Area of Debridement (cm) - Length 0.5 -Area of Debridement (cm) - Width 0.3 -Total Square (Area) (cm) 0.15 -Tunneling No -Undermining/Tunneling No -Circular Undermining No -Wound/Ulcer Outcome Not Healed -Ulcer Cleansing Rinsed/ Irrigated with Saline -Foul Odor after Cleansing No -Bioengineered Tissue Yes -Type of Bioengineered Tissue Epifix 18mm Disc -Expiration Date 12/23/24 -Product Lot Number [id number] -Percent Used 100 -Saline Lot Number [id number] -Bleeding Controlled with Pressure -Treatment Response Procedure Tolerated Well -Debridement - Subq, 1st 20sq cm No -Apply Skin Sub - 1st 25 sq cm - Legs 1 -Epifix 18mm Disc 3 #2 R Vaz -Procedure Performed No Pain Scale: 0-10 Numeric Is Patient Pain Free? Yes WC - Nurse 3 - General Ulcer D/C NN Start: 03/24/20 08:08 Freq: Status: Active Protocol: Activity Type Activity Date Activity User E-Sign Co-Sign Detail Recorded Client Recorded Date Recorded By Document 03/24/20 08:38 DL [id number] 03/24/20 08:40 DL Document 03/31/20 08:33 MW [id number] 03/31/20 08:35 MW 03/24/20 03/31/20 08:38 08:33 Wound Care Nurse 3 #3 LATERAL RLE -Ulcer Cleansing Not Cleansed -Foul Odor after Cleansing No No -Negative Pressure Wound Therapy N/A -Primary Dressing Covered/Secured with Dry Gauze, Dry Gauze, Secured with Secured with Tape Tape #2 R Vaz -Ulcer Cleansing Not Cleansed -Foul Odor after Cleansing No No -Negative Pressure Wound Therapy N/A -Primary Dressing Covered/Secured with Dry Gauze, Dry Gauze, Secured with Secured with Tape Tape Right -Other will apply compression at home Treatment Response Procedure Procedure Tolerated Well Tolerated Well Vital Signs Pulse Rate (60-100) 82 Pulse Location Monitor Blood Pressure (90/60-120/80) 151/57 H Blood Pressure Mean (mm Hg) 88 Source Monitor Pain Scale: 0-10 Numeric Is Patient Pain Free? Yes Yes Teaching: Wound Center Dressing Your Wound -Person Taught Patient -Teaching Method Discussion, Demonstration -Response to teaching Verbalize understanding WC - Visit Discharge Discharge Condition Stable Stable Ambulatory Status Ambulatory Ambulatory Transportation Private Auto Private Auto Accompanied by self Medication Reconcilliation completed & No provided to patient/care provider Clinical Summary of Care Provided Yes Assessment/Plan Active Problems Traumatic open wound of lower leg (Chronic) Leg swelling (Chronic) Edema of leg (Chronic) Diabetes mellitus (Chronic) Morbid obesity with BMI of 45.0-49.9, adult (Chronic) COPD (chronic obstructive pulmonary disease) (Chronic) Coronary artery arteriosclerosis (Chronic) Lumbar disc disease with radiculopathy (Chronic) Chronic wound of extremity (Chronic) Ulcer of calf due to diabetes mellitus (Chronic) Non-pressure chronic ulcer of right calf with fat layer exposed (Chronic)
[2020-04-14 08:06] VITALS: TEMP 36.2; BMI 44.9
--- NOTE | 2020-04-14 08:31 | HP.PCM_ITS ---
(1) Traumatic open wound of lower leg Status: Chronic Qualifiers: Code(s): S81.809A - Unspecified open wound, unspecified lower leg, initial encounter (2) Leg swelling Status: Chronic Code(s): M79.89 - Other specified soft tissue disorders (3) Edema of leg Status: Chronic Code(s): R60.0 - Localized edema (4) Diabetes mellitus Status: Chronic Code(s): E11.9 - Type 2 diabetes mellitus without complications (5) Morbid obesity with BMI of 45.0-49.9, adult Status: Chronic Code(s): E66.01 - Morbid (severe) obesity due to excess calories; Z68.42 - Body mass index [BMI] 45.0-49.9, adult (6) COPD (chronic obstructive pulmonary disease) Status: Chronic Code(s): J44.9 - Chronic obstructive pulmonary disease, unspecified (7) Coronary artery arteriosclerosis Status: Chronic Code(s): I25.10 - Atherosclerotic heart disease of [place] coronary artery without angina pectoris (8) Diabetic foot wound, [place] Grade 1 Status: Resolved (9) Ulcer of foot due to diabetes Status: Resolved Code(s): E11.621 - Type 2 diabetes mellitus with foot ulcer; L97.509 - Non-pressure chronic ulcer of other part of unspecified foot with unspecified severity (10) Lumbar disc disease with radiculopathy Status: Chronic Code(s): M51.16 - Intervertebral disc disorders with radiculopathy, lumbar region (11) Chronic wound of extremity Status: Chronic (12) Ulcer of calf due to diabetes mellitus Status: Chronic Code(s): E11.622 - Type 2 diabetes mellitus with other skin ulcer; L97.209 - Non-pressure chronic ulcer of unspecified calf with unspecified severity (13) Non-pressure chronic ulcer of right calf with fat layer exposed Status: Chronic Code(s): L97.212 - Non-pressure chronic ulcer of right calf with fat layer exposed History of Present Illness Date of Service: 04/14/20 Chief Complaint: Chronic open wound of the right lower extremity secondary to diabetes mellitus, Diabetic right foot wound - Hubbard Grade 1 History of Wound: This is a 59-year-old diabetic female who has been previously treated in our facility for a traumatic wound on the left lower extremity. She presented this time with wounds in her right lower extremity. There are 2 wounds involving the right calf, which were initially traumatic in origin. They are located on the right anterior tibial surface and on the right lateral calf. These occurred due to impact with a car door in December 2018. It is felt, however, that the failure of the patient's wounds to heal is due to her longstan ding diabetes mellitus. The patient has been using Collagenase Santyl topically. She also developed a more recent ulceration on the right foot, located overlying a bunion, which has now subsequently healed. According the patient, this occurred as a result of a new pair of sneakers, which she obtained at a retail establishment. The patient is known to be diabetic, and her blood sugars appear to be reasonably well controlled, based upon the patient's account. The previous wound in the left lower extremity has remained healed. The patient has continued to implement conservative treatment measures previously recommended, including leg elevation, avoidance of idle standing and sitting, active lifestyle, attempts at weight loss, and the use of graduated compression stockings on a daily basis, of 20 to 30 mmHg compression. Past Medical History Past Medical History: Chronic Problems Traumatic open wound of lower leg (Chronic) Leg swelling (Chronic) Edema of leg (Chronic) Diabetes mellitus (Chronic) Morbid obesity with BMI of 45.0-49.9, adult (Chronic) COPD (chronic obstructive pulmonary disease) (Chronic) Coronary artery arteriosclerosis (Chronic) Lumbar disc disease with radiculopathy (Chronic) Chronic wound of extremity (Chronic) Ulcer of calf due to diabetes mellitus (Chronic) Non-pressure chronic ulcer of right calf with fat layer exposed (Chronic) Surgical History: - - The patient has a history of coronary artery stent placement. She has undergone open reduction and internal fixation of a left tibia fracture. She underwent right meniscus repair in the past. She is a Ab0. Allergies/Adverse Reactions: Allergies bee venom protein (honey bee) Adverse Reaction (Verified 03/19/19 09:02) Swelling Home Medications: Ambulatory Orders Medication Instructions Recorded Aspirin E.C. [Ecotrin] 81 mg PO DAILY@0800 09/03/13 Hydrocodone/Acetaminophen [Vicodin 1 - 2 tablet PO Q6H PRN PRN 09/03/13 5-300 mg Tablet] Lisinopril 10 mg PO DAILY 09/03/13 Metformin [Metformin HCl] 1,000 mg PO BID 09/03/13 Metoprolol Tartrate 50 mg PO DAILY 09/03/13 Dulaglutide [Trulicity] 0.75 mg SQ 01/02/18 Fluticasone/Vilanterol [Breo 1 each IH 01/02/18 Ellipta 200-25 Mcg INH] Insulin Glargine,Hum.rec.anlog 56 unit BID 01/02/18 [Lantus] Sitagliptin Phosphate [Januvia] 25 mg PO DAILY 01/02/18 Tiotropium [place] [Spiriva] 18 mcg IH 01/02/18 - Family History Paternal - - The patient's father at the age of 78 with history of chronic obstructive pulmonary disease. The patient's mother at the age of 84 with history of chronic obstructive pulmonary disease. Smoking Status: Former smoker Tobacco Use: Non-smoker Review of Systems Constitutional: Denies: Chills, Fever, Weight Change Eyes: Denies: Pain, Vision Change HEENT: Denies: Difficulty Hearing, Difficulty Swallowing, Sinus Congestion Cardiovascular: Denies: Chest Pain, Palpitations Respiratory: Denies: Cough, Shortness of Breath Gastrointestinal: Denies: Diarrhea, Nausea, Vomiting Genitourinary: Denies: Dysuria, Hematuria Endocrine: Denies: Heat/ Cold Intolerance, Polydipsia, Polyuria Hematologic/ Lymphatic: Denies: Easy Bruising, Easy Bleeding - Physical Exam Vital Signs Temp Pulse Resp BP 97.2 F L 87 20 H 156/70 H 04/14/20 08:06 03/31/20 08:08 03/24/20 08:08 03/31/20 08:08 General: Alert, Oriented x3, Cooperative, No apparent distress, Well developed, Well nourished HEENT: Atraumatic, PERRLA, EOMI, Normocephalic Oral: Moist Mucosa Neck: No JVD Lungs: Normal air movement Abdomen: Non-Distended, Obese Extremities: No clubbing, No cyanosis, No edema, No Calf Tenderness, - - The 2 wounds on the patient's right lateral calf are now totally healed and epithelialized. Skin: No rashes Wound Measurements and Assessment WC - Nurse 1 - General Ulcer Measurement Start: 03/24/20 08:08 Freq: Status: Active Protocol: Activity Type Activity Date Activity User E-Sign Co-Sign Detail Recorded Client Recorded Date Recorded By Document 04/14/20 08:06 CALEB [id number] 04/14/20 08:10 KR 04/14/20 08:06 Wound Center Nurse 1 [Ulcer Assessment] #3 LATERAL RLE -Current Size (cm) - Length 0.1 -Current Size (cm) - Width 0.1 -Current Size (cm) - Depth 0.1 -Total Square Cm 0.01 -Exudate Amt None Present -Wound Margin Distinct, Outline Attached -Granulation Amt None Present (0 %) -Necrosis Amt None Present (0 %) -Texture (Ketty-wound Skin Appearance) Assessed, Scarring -Moisture (Ketty-wound Skin Appearance Assessed,Dry/ ) Scaly -Color (Ketty-wound Skin Appearance) No Abnormality, Assessed -Temperature (Ketty-wound Skin No Abnormality Appearance) (Pt Warm) -Tenderness on Palpation (Ketty-wound No Skin Appearance) -Ulcer Cleansing Rinsed/ Irrigated with Saline -Foul Odor after Cleansing No -Anesthetic Used 4% Lidocaine Solution #2 R Vaz -Current Size (cm) - Length 0.1 -Current Size (cm) - Width 0.1 -Current Size (cm) - Depth 0.1 -Total Square Cm 0.01 -Exudate Amt None Present -Wound Margin Distinct, Outline Attached -Granulation Amt None Present (0 %) -Necrosis Amt None Present (0 %) -Texture (Ketty-wound Skin Appearance) Assessed, Scarring -Moisture (Ketty-wound Skin Appearance Assessed,Dry/ ) Scaly -Color (Ketty-wound Skin Appearance) No Abnormality, Assessed -Temperature (Ketty-wound Skin No Abnormality Appearance) (Pt Warm) -Tenderness on Palpation (Ketty-wound No Skin Appearance) -Ulcer Cleansing Rinsed/ Irrigated with Saline -Foul Odor after Cleansing No -Anesthetic Used 4% Lidocaine Solution Musculoskeletal: No Muscle Wasting Neurological: Cranial nerves II-XII grossly intact, Neuro grossly intact Psych/Mental Status: Normal Affect, Appropriate, Alert and oriented to time, place, person, mood and affect Debridement Note Post-Debridement Measurements/Treatment WC - Nurse 2 - General Ulcer CM Notes Start: 03/24/20 08:08 Freq: Status: Active Protocol: Activity Type Activity Date Activity User E-Sign Co-Sign Detail Recorded Client Recorded Date Recorded By Document 03/24/20 10:20 PL [id number] 03/24/20 10:24 PL Document 03/31/20 08:57 PL [id number] 03/31/20 08:58 PL 03/24/20 03/31/20 10:20 08:57 Wound Center Nurse 2 #3 LATERAL RLE -Time 08:23 -Correct Patient Yes -Correct Side, Site, Position Yes -Correct Procedure Yes -Procedure Performed Yes No -Type of Procedure Debridement -Clinical Debridement Subcutaneous -Tissue Removed Subcutaneous -Post Debridement (cm) - Length 0.5 0.1 -Post Debridement (cm) - Width 0.3 0.1 -Post Debridement (cm) - Depth 0.1 0.1 -Total Square (Post) (cm) 0.15 0.01 -Area of Debridement (cm) - Length 0.5 0.1 -Area of Debridement (cm) - Width 0.3 0.1 -Total Square (Area) (cm) 0.15 0.01 -Tunneling No -Undermining/Tunneling No -Circular Undermining No -Wound/Ulcer Outcome Not Healed Not Healed -Ulcer Cleansing Rinsed/ Rinsed/ Irrigated with Irrigated with Saline Saline -Foul Odor after Cleansing No No -Bioengineered Tissue Yes -Type of Bioengineered Tissue Epifix 18mm Disc -Expiration Date 12/23/24 -Product Lot Number [id number] -Percent Used 100 -Saline Lot Number [id number] -Bleeding Controlled with Pressure -Treatment Response Procedure Tolerated Well -Debridement - Subq, 1st 20sq cm No -Apply Skin Sub - 1st 25 sq cm - Legs 1 -Epifix 18mm Disc 3 #2 R Vaz -Procedure Performed No No -Post Debridement (cm) - Length 0.1 -Post Debridement (cm) - Width 0.1 -Post Debridement (cm) - Depth 0.1 -Total Square (Post) (cm) 0.01 -Area of Debridement (cm) - Length 0.1 -Area of Debridement (cm) - Width 0.1 -Total Square (Area) (cm) 0.01 -Wound/Ulcer Outcome Not Healed Pain Scale: 0-10 Numeric Is Patient Pain Free? Yes Yes WC - Nurse 3 - General Ulcer D/C NN Start: 03/24/20 08:08 Freq: Status: Active Protocol: Activity Type Activity Date Activity User E-Sign Co-Sign Detail Recorded Client Recorded Date Recorded By Document 03/24/20 08:38 DL [id number] 03/24/20 08:40 DL Document 03/31/20 08:33 MW [id number] 03/31/20 08:35 MW 03/24/20 03/31/20 08:38 08:33 Wound Care Nurse 3 #3 LATERAL RLE -Ulcer Cleansing Not Cleansed -Foul Odor after Cleansing No No -Negative Pressure Wound Therapy N/A -Primary Dressing Covered/Secured with Dry Gauze, Dry Gauze, Secured with Secured with Tape Tape #2 R Vaz -Ulcer Cleansing Not Cleansed -Foul Odor after Cleansing No No -Negative Pressure Wound Therapy N/A -Primary Dressing Covered/Secured with Dry Gauze, Dry Gauze, Secured with Secured with Tape Tape Right -Other will apply compression at home Treatment Response Procedure Procedure Tolerated Well Tolerated Well Vital Signs Pulse Rate (60-100) 82 Pulse Location Monitor Blood Pressure (90/60-120/80) 151/57 H Blood Pressure Mean (mm Hg) 88 Source Monitor Pain Scale: 0-10 Numeric Is Patient Pain Free? Yes Yes Teaching: Wound Center Dressing Your Wound -Person Taught Patient -Teaching Method Discussion, Demonstration -Response to teaching Verbalize understanding WC - Visit Discharge Discharge Condition Stable Stable Ambulatory Status Ambulatory Ambulatory Transportation Private Auto Private Auto Accompanied by self Medication Reconcilliation completed & No provided to patient/care provider Clinical Summary of Care Provided Yes No debridement was completed today - The patient's wounds are now completely healed and epithelialized. Assessment/Plan Active Problems Traumatic open wound of lower leg (Chronic) Leg swelling (Chronic) Edema of leg (Chronic) Diabetes mellitus (Chronic) Morbid obesity with BMI of 45.0-49.9, adult (Chronic) COPD (chronic obstructive pulmonary disease) (Chronic) Coronary artery arteriosclerosis (Chronic) Lumbar disc disease with radiculopathy (Chronic) Chronic wound of extremity (Chronic) Ulcer of calf due to diabetes mellitus (Chronic) Non-pressure chronic ulcer of right calf with fat layer exposed (Chronic) Assessment: This is a 59-year-old female who presented with traumatic wounds on the right lower extremity, of several months duration. The ulceration overlying the right bunion remains completely healed. A noninvasive lower extremity arterial study revealed normal ankle-brachial index on the right, and a normal digital brachial index on the right as well. The ulcerations on the anterolateral aspect of the right calf have shown slight improvement in recent weeks. A battery of diagnostic tests have been recently obtained, with results as follows: Glucose 172, BUN 19, creatinine 0.82, total protein 7.0, albumin 3.8, calcium 9.0, AST 32, alkaline phosphatase 70, ALT 47, total bilirubin 0.40, sodium 136, potassium 4.5, chloride 103, serum prealbumin 31.2, hemoglobin A1c 8.9, white blood count 6.0, hemoglobin 13.2, hematocrit 41.3, platelets 181,000. According to the patient, her blood sugars continue to run around 150 each day, and she indicates that she is consuming a well-balanced and nutritious diet. Plan: Patient has been counseled as to the appropriate foot care necessary in diabetic patients. Patient has been strongly urged to seek evaluation by a cma or lpn, for the fitting of appropriate footwear. Furthermore, frequent inspection of the patient's feet, appropriate toenail trimming by professional, etc., have been recommended. Patient has been advised to optimize her glycemic control. Adequate nutrition has been advised. We have applied a total of 10 EpiFix allografts recently. Patient presents today, now completely healed. The 2 wounds on the right lateral calf are completely healed and epithelialized. Therefore, the patient is to be discharged. She is to continue wearing her graduated compression stockings of 20 to 30 mmHg compression on a daily basis. The patient is to continue elevating her legs as much as possible. She is to avoid prolonged idle sitting. The patient has been encouraged to assure adequate nutrition. Optimizing glycemic control has also been advised. Weight loss has also been recommended. She will follow-up henceforth on an as-needed basis. Influenza vaccine was not administered today. The patient is not a smoker. Patient weighs 265 pounds. She stands 5 feet 4 inches tall. Her BMI is 45.5, which places her in a class III category. Weight loss has been recommended, and collaboration with the patient's primary care physician has been recommended.
== END 2020-04-14 08:37 | disposition home or self-care (01) ==
LOC: WC 08:00
PROVIDERS: PCP Nurse Practitioner Primary Care; Referring Provider Surgery; Visit Provider Surgery
DX: E11.622 Type 2 diabetes mellitus with other skin ulcer (principal); L97.212 Non-pressure chronic ulcer of right calf with fat layer exposed; M79.89 Other specified soft tissue disorders; R60.0 Localized edema; J44.9 Chronic obstructive pulmonary disease, unspecified; E66.01 Morbid (severe) obesity due to excess calories; Z68.42 Body mass index [BMI] 45.0-49.9, adult; Z79.4 Long term (current) use of insulin; Z79.82 Long term (current) use of aspirin; Z87.891 Personal history of nicotine dependence; Z95.5 Presence of coronary angioplasty implant and graft; I25.10 Atherosclerotic heart disease of native coronary artery without angina pectoris; M51.16 Intervertebral disc disorders with radiculopathy, lumbar region
CPT/HCPCS: 15271; 99212; Q4186; G0463

== ENCOUNTER → 2020-11-04 16:41 | Outpatient (CLI) | payer OTHER, SELFPAY ==
--- NOTE | 2020-11-04 16:45 | CT_ITS ---
STUDY: LOW DOSE CT LUNG CANCER SCREENING REASON FOR EXAM: Female, 60 years old. 30 pack-year smoking history. Quit 6 years ago. RADIATION DOSAGE (If Supplied By Facility): CTDIvol = ( 4.02 ) mGy, DLP = ( 129.89 ) mGycm TECHNIQUE: No contrast was administered. Low dose technique was utilized (average mAS-38 and kVp 120). 1.25 mm axial source images with a slice interval of 1.25-mm were reconstructed in lung windows. 2.5 mm axial source images with a slice interval of 2.5-mm were reconstructed in lung windows. 5.0 mm axial source images with a slice interval of 5.0-mm were reconstructed in soft tissue windows. Nodule measured using lung windows on PACS and/or independent workstation with automated measurement of minimum and maximum diameter. Nodule measurement reported as average diameter rounded to the nearest whole number. Growth is defined as an increase ins size of greater than 1.5 mm. COMPARISON: 10/13/2018 NODULES: Nodule #: 1 Density: Solid Lung location: Right upper lobe: 1.6 cm from pleura Location in series: Series Number: 2 Image: 45 Size - D1 x D2 mm: 2 x 2 mm: 2 mm average diameter Margin: Smooth Shape: Rounded Calcification: Yes Fat: No Temporal comparison: Stable Nodule #: 2 Density: Solid Lung location: Right lower lobe: Pleural-based Location in series: Series Number: 2 Image: 182 Size - D1 x D2 mm: 8 x 6 mm: 7 mm average diameter Margin: Smooth Shape: Oval Calcification: Yes Fat: No Temporal comparison: Stable Total lung nodules (excluding granulomas): 0 Emphysema: No Endobronchial lesion: No Aorta: Stable atherosclerotic changes without aneurysm. Coronary arteries: Stable coronary artery calcifications. Heart: Normal Pulmonary artery: Normal Mediastinal nodes: Small nonspecific subcentimeter mediastinal lymph nodes are unchanged from prior study. Other chest and abdominal findings: Degenerative changes of the thoracic spine. CT/Low Dose CT Lung Screening IMPRESSION: Lung-RADS category 1 - Continue annual screening with LDCT in 12 months. IMPORTANT NOTES FOR USE: ACR Lung-RADS Version 1.1 Assessment Categories Release Date: 2018 Category: Coded 0-4 bases on nodule(s) with highest degree of suspicion. Negative screen is defined as categories 1 and 2; a positive screen is defined as categories 3 and 4. Category 3 and 4A nodules that are unchanged on interval CT should be coded as category 2, and individuals returned to screening in 12 months. Category 4X: Category 3 or 4 nodules with additional imaging findings that increase the suspicion of lung cancer, such as spiculation, GGN that doubles in size in 1 year, enlarged lymph notes, etc. Category Modifiers: S (significant finding unrelated to lung cancer) Electronically Signed: Rome Moreno DO at 23:11 EDT Tel [phone], Service support ,
== END ==
PROVIDERS: PCP Nurse Practitioner Primary Care; Referring Provider Internal Medicine Pulmonary Disease; Visit Provider Internal Medicine Pulmonary Disease
DX: Z12.2 Encounter for screening for malignant neoplasm of respiratory organs (principal); Z87.891 Personal history of nicotine dependence
CPT/HCPCS: 71271

== ENCOUNTER → 2021-11-22 | Outpatient (CLI) | payer OTHER, SELFPAY ==
--- NOTE | 2021-11-22 16:45 | CT_ITS ---
EXAM: CT CHEST, LUNG CANCER SCREENING WITHOUT INTRAVENOUS CONTRAST CLINICAL INDICATION: HX OF NICOTINE DEPENDENCE TECHNIQUE: Helically acquired images were obtained of the chest without intravenous contrast using low dose (LDCT) lung cancer screening protocol. This CT exam was performed using one or more of the following dose reduction techniques: automated exposure control, adjustment of the mA and/or kV according to patient size, and/or use of iterative reconstruction technique. This report was created using [email or web address] report generation technology. COMPARISON: CT Lung Cancer Screening dated 11/04/2020 FINDINGS: LUNGS AND PLEURAL SPACES: Diffuse centrilobular pulmonary edema again noted. Calcified granuloma within the right lower lobe again seen. No suspicious pulmonary nodule or lung mass. Stable linear scarring within the right upper lobe. No pleural effusion or thickening. No pneumothorax. HEART: Moderate coronary artery calcification. Heart size is normal. No pericardial effusion. MEDIASTINUM: Normal. No mediastinal or hilar adenopathy. Esophagus is unremarkable. No hiatal hernia. THYROID: Normal. No thyroid lesions. BONES/JOINTS: Normal. No suspicious lytic or blastic abnormality. VASCULATURE: Normal. Thoracic aorta is non-dilated. LYMPH NODES: Normal. No enlarged lymph nodes. CT/Low Dose CT Lung Screening IMPRESSION: 1. No evidence of lung mass or suspicious pulmonary nodule. 2. Diffuse centrilobular pulmonary emphysema. 3. ACR Lung CT Screening Reporting T Data System (Lung-RADS) score: 1 - Recommend continued annual screening with low-dose CT (LDCT) in 12 months. } Electronically Signed: Kashif Espinoza MD at 16:34 EDT ,
== END | disposition home or self-care (01) ==
LOC: CT 16:41
PROVIDERS: PCP Nurse Practitioner Primary Care; Visit Provider Internal Medicine Pulmonary Disease
DX: Z87.891 Personal history of nicotine dependence (principal)
CPT/HCPCS: 71271

== ENCOUNTER → 2023-06-16 | Outpatient (CLI) | payer OTHER, SELFPAY ==
--- NOTE | 2023-06-16 14:21 | CT_ITS ---
STUDY: LOW DOSE CT LUNG CANCER SCREENING REASON FOR EXAM: Female, 62 years old. HX OF NICOTINE. Former smoker. Patient smoked 1 pack per day for 40 years. RADIATION DOSAGE (If Supplied By Facility): CTDIvol = ( 4.02 ) mGy, DLP = ( 137.43 ) mGycm TECHNIQUE: No contrast was administered. Low dose technique was utilized (average mAS-38 and kVp 120). 1.25 mm axial source images with a slice interval of 1.25-mm were reconstructed in lung windows. 2.5 mm axial source images with a slice interval of 2.5-mm were reconstructed in lung windows. 5.0 mm axial source images with a slice interval of 5.0-mm were reconstructed in soft tissue windows. COMPARISON: Comparison is made with prior study dated November 22, 2021. NODULES: No suspicious nodules are seen. Emphysema: Stable mild degree of emphysema. Stable linear scarring in the anterior aspect of the right upper lobe and right middle lobe. Calcified granuloma in the right lower lobe. Endobronchial lesion: None Aorta: Atherosclerotic plaque formation of the aortic arch. CORONARY ARTERIES: Coronary artery calcification is seen. Heart: Unremarkable Pulmonary artery: Unremarkable Mediastinal nodes: Small mediastinal lymph nodes. Other chest and abdominal findings: CT/Low Dose CT Lung Screening IMPRESSION: Lung-RADS category 2 - Continue annual screening with LDCT in 12 months. IMPORTANT NOTES FOR USE: ACR Lung-RADS Version 1.1 Assessment Categories Release Date: 2018 Category: Coded 0-4 bases on nodule(s) with highest degree of suspicion. Negative screen is defined as categories 1 and 2; a positive screen is defined as categories 3 and 4. Category 3 and 4A nodules that are unchanged on interval CT should be coded as category 2, and individuals returned to screening in 12 months. Category 4X: Category 3 or 4 nodules with additional imaging findings that increase the suspicion of lung cancer, such as spiculation, GGN that doubles in size in 1 year, enlarged lymph notes, etc. Category Modifiers: S (significant finding unrelated to lung cancer) Electronically Signed: Nathan Olivas MD at 15:19 EST ,
--- OUTSIDE RECORDS SUMMARY | 2023-06-16 17:18 | XMS RPT_ITS | CCD ---
Author Name Unknown Address [address] [place] [address] Organization [facility] Care Team Providers Care Learning Officer Name Role Phone GOSIA SUMMER ASSOCIATE-FLYING INSTRUCTOR, JORGE Basilio Primary Care Physicia n GOSIA SUMMER ASSOCIATE-FLYING INSTRUCTOR, JORGE Basilio Attending Unava ilable GOSIA SUMMER ASSOCIATE-FLYING INSTRUCTOR, JORGE Basilio Primary Care Unava ilable GOSIA SUMMER ASSOCIATE-FLYING INSTRUCTOR, JORGE Basilio Primary Care Unava ilable GOSIA SUMMER ASSOCIATE-FLYING INSTRUCTOR, JORGE Basilio Attending Unava ilable GOSIA SUMMER ASSOCIATE-FLYING INSTRUCTOR, JORGE Basilio Primary Care Unava ilable GOSIA SUMMER ASSOCIATE-FLYING INSTRUCTOR, JORGE Basilio Attending Unava ilable GOSIA SUMMER ASSOCIATE-FLYING INSTRUCTOR, JORGE Basilio Primary Care Unava ilable GOSIA SUMMER ASSOCIATE-FLYING INSTRUCTOR, JORGE Basilio Attending Unava ilable Allergies Allergy Classification Reported Allergen(s) Allergy Type Date of Onset Reaction(s) Facility (7 sources) Bee/Wasp/Ant venom Allergy to substance Eruption of skin (disorder), Swelling (morphologic abnormality) [facility] Work Phone: NEGATED: Highlighted row has been ruled out! (1 source) Drug allergy [facility] Work Phone: NEGATED: Highlighted row has been ruled out! (1 source) Drug allergy [facility] NEGATED: Highlighted row has been ruled out! (1 source) Drug allergy [facility] NEGATED: Highlighted row has been ruled out! (1 source) Drug allergy [facility] NEGATED: Highlighted row has been ruled out! (1 source) Drug allergy [facility] NEGATED: Highlighted row has been ruled out! (1 source) Drug allergy [facility] Medications Current Medications Medication Drug Class(es) Dates Sig (Normalized) Sig (Original) albuterol MDI (90 mcg/inh) CFC free inhalation aerosol (6 sources) Start: 10-04-2021 take 2 puff(s) by inhalation four times daily as needed for wheezing albuterol MDI (90 mcg/inh) CFC free inhalation aerosol 2 puff(s), Inhalation, QID, PRN as needed for wheezing, # 6.7 gram(s), 0 Refill(s) Start Date: 10/04/21 Status: Ordered aspirin 81 mg delayed release oral tablet (7 sources) Platelet Aggregation Inhibitor, Nonsteroidal Anti-inflammatory Drug Start: 07-07-2022 aspirin 81 mg oral delayed release tablet Dose : 81 mg = 1 tab(s), Oral, Every other day, 0 Refill(s) Start Date: 07/07/22 Status: Ordered Completed/Discontinued Medications Medication Drug Class(es) Dates Sig (Normalized) Sig (Original) 3 ml insulin glargine 100 unt/ml pen injector (6 sources) Insulin Analog Start: 10-08-2021 Lantus Solostar Pen 100 units/mL 3 mL Pen See Instructions, Inject 72 units under the skin in the morning and 65 units in the evening. Rotate injection sites. Start Date: 10/08/21 Status: Ordered Problems Problem Classification Problem Date Documented Da te Episodic/Chronic Anxiety disorders (1 source) Anxiety 02-22-2019 Chronic Cardiac dysrhythmias (6 sources) Tachycardia 07-08-2021 Episodic Cataract (7 sources) Bilateral cataracts 12-11-2019 Chronic Chronic obstructive pulmonary disease and bronchiectasis (7 sources) Chronic obstructive lung disease 01-21-2015 Chronic Coronary atherosclerosis and other heart disease (7 sources) Coronary arteriosclerosis 02-22-2019 Chroni c Coronary atherosclerosis and other heart disease (7 sources) Patient post percutaneous transluminal coronary angioplasty 01-22-2020 Episodic Diabetes mellitus with complications (2 sources) Type 2 diabetes mellitus in obese 01-03-2023 Chronic Diabetes mellitus without complication (4 sources) Diabetes mellitus 01-21-2015 Chronic Disorders of lipid metabolism (7 sources) Hypertriglyceridemia 05-13-2020 Chronic Essential hypertension (4 sources) Benign essential hypertension 02-22-2019 Chronic Nutritional deficiencies (7 sources) Vitamin D deficiency 02-22-2019 Chronic Osteoarthritis (7 sources) Osteoarthritis 02-22-2019 Chronic Other gastrointestinal disorders (1 source) Irritable bowel syndrome 02-22-2019 Chronic Other injuries and conditions due to external causes (7 sources) Wound of skin 02-26-2019 Episodic Other lower respiratory disease (1 source) Dyspnea 05-21-2020 Episodic Other nervous system disorders (7 sources) Carpal tunnel syndrome of right wrist 02-22-2019 Chronic Results Test Name Value Interpretation Reference Range Facil ity Vital Signs Date Time Vital Sign Value Performing Clinician Faci lity 10-04-2021 12:44-0400 Diastolic Blood Pressure NBP [address] NAIF LEVIN MD [facility] 10-04-2021 12:44-0400 Heart rate 84 /min DR NAIF LEVIN MD [facility] 10-04-2021 12:44-0400 Respiratory rate 15 /min DR NAIF LEVIN MD [facility] 10-04-2021 12:44-0400 Systolic Blood Pressure NBP [address] NAIF LEVIN MD [facility] 10-04-2021 12:35-0400 Diastolic Blood Pressure NBP [address] NAIF LEVIN MD [facility] 10-04-2021 12:35-0400 Heart rate 83 /min DR NAIF LEVIN MD [facility] 10-04-2021 12:35-0400 Respiratory rate 17 /min DR NAIF LEVIN MD [facility] 10-04-2021 12:35-0400 Systolic Blood Pressure NBP [address] NAIF LEVIN MD [facility] 10-04-2021 12:20-0400 Body temperature 96.8 [degF] DR NAIF LEVIN MD [facility] 10-04-2021 12:20-0400 Diastolic Blood Pressure NBP [address] NAIF LEVIN MD [facility] 10-04-2021 12:20-0400 Heart rate 86 /min DR NAIF LEVIN MD [facility] 10-04-2021 12:20-0400 Respiratory rate 21 /min DR NAIF LEVIN MD [facility] 10-04-2021 12:20-0400 Systolic Blood Pressure NBP [address] NAIF LEVIN MD [facility] 10-04-2021 11:46-0400 Body temperature 97.88 [degF] DR NAIF LEVIN MD [facility] 10-04-2021 08:55-0400 Body height 162.[address] NAIF LEVIN MD [facility] 10-04-2021 08:55-0400 Body weight 122.[address] NAIF LEVIN MD [facility] 10-04-2021 08:55-2540 Body weight 46.41 kg/m2 DR NAIF LEVIN MD [facility] Encounters Encounter Date Encounter Type Care Provider Facility Start: 04-14-2023 ambulatory JORGE BANGURA ER SUMMER ASSOCIATE-FLYING INSTRUCTOR Facility:B Start: 02-22-2023 End: 02-23-2023 ambulatory JORGE ELISE SUMMER ASSOCIATE-FLYING INSTRUCTOR Facility:[facility] Start: 02-22-2023 End: 02-22-2023 Patient encounter procedure JORGE ELISE SUMMER ASSOCIATE-FLYING INSTRUCTOR [facility] Start: 01-05-2023 End: 01-06-2023 ambulatory JORGE ELISE SUMMER ASSOCIATE-FLYING INSTRUCTOR Facility:[facility] Start: 01-05-2023 End: 01-05-2023 Patient encounter procedure JORGE ELISE SUMMER ASSOCIATE-FLYING INSTRUCTOR [facility] Start: 07-14-2022 End: 07-15-2022 ambulatory JORGE ELISE SUMMER ASSOCIATE-FLYING INSTRUCTOR Facility:B Start: 07-14-2022 End: 07-14-2022 Patient encounter procedure JORGE ELISE SUMMER ASSOCIATE-FLYING INSTRUCTOR [facility] Start: 02-21-2022 End: 02-21-2022 Patient encounter procedure JORGE ELISE SUMMER ASSOCIATE-FLYING INSTRUCTOR [facility] Start: 01-04-2022 End: 01-04-2022 Patient encounter procedure JORGE ELISE SUMMER ASSOCIATE-FLYING INSTRUCTOR [facility] Start: 10-04-2021 End: 10-04-[address] NAIF LEVIN MD [facility] Start: 02-09-2021 End: 02-09-2021 Patient encounter procedure JORGE ELISE SUMMER ASSOCIATE-FLYING INSTRUCTOR [facility] Procedures Date Procedure Procedure Detail Performing Clinician Start: 10-04-[address] NAIF LEVIN MD Immunizations Immunization Date Immunization Notes Care Provider Fa cility 01-12-2022 COVID-19, mRNA, LNP- S, bivalent booster, PF, 30 mcg/0.3 mL dose; Translations: [[employer] COVID-19 (12y+) Bivalent Booster Vaccine PF] JORGE ELISE SUMMER ASSOCIATE-FLYING INSTRUCTOR [facility] Payers Date Payer Category Payer Private Health Insurance [facility] [id number] 2016 Unknown [id number] 1960 Unknown [id number] 1960 Unknown [id number] 1960 Unknown [id number] 1960 Unknown [id number] Social History Date Type Detail Facility Start: 11-12-2018 End: 10-04-2021 Ex-smoker (finding) [facility] Sex Assigned At Female [facility] Medical Equipment Procedure Code Equipment Code Equipment Origin al Text Equipment Identifier Dates BD UF SHORT PEN NEEDLE [id number] Start: 07-05-[address] Strips Start: 01-30-2020 RA [id number] PEN NE EDLE 31G X 8MM Start: 10-29-2020 See Instructions , QS for testing once daily, # 1 EA, 11 Refill(s), [facility]acy: [facility] Diabetes, 164, cm, 01/30/20 15:28:00 EDT, Height, 121.6, kg, 01/30/20 15:28:00 EDT, Dosing Weight Start: 01-30-2020 See Instructions , BD UF short pen needles, 8mm x 31G. Uses up to 2 daily #100 x 0 Dx: diabetes, # 50 EA, 1 Refill(s), [facility]acy: [facility] Diabetes, 168, cm, 08/25/20 15:26:00 EDT, Height, 125.3, kg, 08/25/20 15:26:00 EDT, Dosing W... Start: 12-21-2020 See Instructions , BD UF short pen needles, 8mm x 31G. Use as directed up to 2 needles daily for injecting insulin Dx: diabetes, # 50 EA, 1 Refill(s), [facility]acy: [facility] Diabetes, 168, cm, 08/25/20 15:26:00 EDT, Height, 125.3, kg, 0... Start: 12-21-2020 See Instructions , one touch ultra test strips QS for testing daily., # 1 EA, 0 Refill(s), [facility]acy: [facility] 164.5, cm, 06/12/19 13:15:00 EST, Height, 127.4, kg, 06/12/19 13:15:00 EST, Dosing Weight Start: 06-24-2019 See Instructions , QS for testing once daily, # 1 EA, 11 Refill(s), [facility]acy: [facility] Diabetes, 164, cm, 01/30/20 15:28:00 EDT, Height, 121.6, kg, 01/30/20 15:28:00 EDT, Dosing Weight Start: 01-30-2020 See Instructions , BD UF short pen needles, 8mm x 31G. Uses up to 2 daily #100 x 0 Dx: diabetes, # 50 EA, 1 Refill(s), [facility]acy: [facility] Diabetes, 168, cm, 08/25/20 15:26:00 EDT, Height, 125.3, kg, 08/25/20 15:26:00 EDT, Dosing W... Start: 12-21-2020 See Instructions , BD UF short pen needles, 8mm x 31G. Use as directed up to 2 needles daily for injecting insulin Dx: diabetes, # 50 EA, 1 Refill(s), [facility]: [facility] Diabetes, 168, cm, 08/25/20 15:26:00 EDT, Height, 125.3, kg, 0... Start: 12-21-2020 See Instructions , one touch ultra test strips QS for testing daily., # 1 EA, 0 Refill(s), [facility]acy: [facility] 164.5, cm, 06/12/19 13:15:00 EST, Height, 127.4, kg, 06/12/19 13:15:00 EST, Dosing Weight Start: 06-24-2019 Functional Status Date Assessment Result Facility 10-04-2021 Functional Status Awake, Resting [facility] 10-04-2021 Functional Status Less than 8 hours [facility] 10-04-2021 Functional Status [facility] Mental Status Date Assessment Result Facility 10-04-2021 Mental Status Orientation Oriented x 4 [facility] 10-04-2021 Mental Status [facility] Clinical Notes 10-04-2021 Note Date & Type Note Facility 10-04-2021 Hospital Discharg e instructions Patient Education 10/04/2021 12:43:23 Monitored Anesthesia Care, Care After Monitored Anesthesia Care, Care After These instructions provide you with information about caring for yourself after your procedure. Your health care provider may also give you more specific instructions. Your treatment has been planned according to current medical practices, but problems sometimes occur. Call your health care provider if you have any problems or questions after your procedure. What can I expect after the procedure? After your procedure, you may: Feel sleepy for several hours. Feel clumsy and have poor balance for several hours. Feel forgetful about what happened after the procedure. Have poor judgment for several hours. Feel nauseous or vomit. Have a sore throat if you had a breathing tube during the procedure. Follow these instructions at home: For at least 24 hours after the procedure: Have a responsible adult stay with you. It is important to have someone help care for you until you are awake and alert. Rest as needed. Do not: ?Participate in activities in which you could fall or become injured. ?Drive. ?Use heavy machinery. ?Drink alcohol. ?Take sleeping pills or medicines that cause drowsiness. ?Make important decisions or sign legal documents. ?Take care of children on your own. Eating and drinking Follow the diet that is recommended by your health care provider. If you vomit, drink water, juice, or soup when you can drink without vomiting. Make sure you have little or no nausea before eating solid foods. General instructions Take pvjp-ghb-xajxoag and prescription medicines only as told by your health care provider. If you have sleep apnea, surgery and certain medicines can increase your risk for breathing problems. Follow instructions from your health care provider about wearing your sleep device: ?Anytime you are sleeping, including during daytime naps. ?While taking prescription pain medicines, sleeping medicines, or medicines that make you drowsy. If you smoke, do not smoke without supervision. Keep all follow-up visits as told by your health care provider. This is important. Contact a health care provider if: You keep feeling nauseous or you keep vomiting. You feel light-headed. You develop a rash. You have a fever. Get help right away if: You have trouble breathing. Summary For several hours after your procedure, you may feel sleepy and have poor judgment. Have a responsible adult stay with you for at least 24 hours or until you are awake and alert. This information is not intended to replace advice given to you by your health care provider. Make sure you discuss any questions you have with your health care provider. Document Released: 07/31/2016 Document Revised: 07/09/2018 Document Reviewed: 07/31/2016 [employer] Patient Education 2020 [employer]. 10/04/2021 12:43:20 Colonoscopy, Adult, Care After, Lkpe-ix-Elnv Colonoscopy, Adult, Care After This sheet gives you information about how to care for yourself after your procedure. Your doctor may also give you more specific instructions. If you have problems or questions, call your doctor. What can I expect after the procedure? After the procedure, it is common to have: A small amount of blood in your poop for 24 hours. Some gas. Mild cramping or bloating in your belly. Follow these instructions at home: General instructions For the first 24 hours after the procedure: ?Do not drive or use machinery. ?Do not sign important documents. ?Do not drink alcohol. ?Do your daily activities more slowly than normal. ?Eat foods that are soft and easy to digest. Take wfjt-mou-hirvvsw or prescription medicines only as told by your doctor. To help cramping and bloating: Try walking around. Put heat on your belly (abdomen) as told by your doctor. Use a heat source that your doctor recommends, such as a moist heat pack or a heating pad. ?Put a towel between your skin and the heat source. ?Leave the heat on for 20 30 minutes. ?Remove the heat if your skin turns bright red. This is especially important if you cannot feel pain, heat, or cold. You can get burned. Eating and drinking Drink enough fluid to keep your pee (urine) clear or pale yellow. Return to your normal diet as told by your doctor. Avoid heavy or fried foods that are hard to digest. Avoid drinking alcohol for as long as told by your doctor. Contact a doctor if: You have blood in your poop (stool) 2 3 days after the procedure. Get help right away if: You have more than a small amount of blood in your poop. You see large clumps of tissue (blood clots) in your poop. Your belly is swollen. You feel sick to your stomach (nauseous). You throw up (vomit). You have a fever. You have belly pain that gets worse, and medicine does not help your pain. Summary After the procedure, it is common to have a small amount of blood in your poop. You may also have mild cramping and bloating in your belly. For the first 24 hours after the procedure, do not drive or use machinery, do not sign important documents, and do not drink alcohol. Get help right away if you have a lot of blood in your poop, feel sick to your stomach, have a fever, or have more belly pain. This information is not intended to replace advice given to you by your health care provider. Make sure you discuss any questions you have with your health care provider. Document Released: 05/13/2011 Document Revised: 02/08/2018 Document Reviewed: 01/02/2017 [employer] Patient Education 2019 [employer] Follow Up Care 09/03/2021 14:27:08 With:NAIF LEVIN Address: [address] [facility] [address] [place] [address]- [phone] Business (1) When: Unknown Comments:NEXT COLONOSCOPY IN [address] [facility] FABIUS ADMISSION HISTORY AN D PHYSICIAL CHIEF COMPLAINT: HISTORY OF PRESENT ILLNESS: REVIEW OF SYSTEMS: ACTIVE PROBLEMS: (18) Benign essential hypertension (8368028) Bilateral cataracts (849047488) CAD - Coronary artery disease (9769273000) Carpal tunnel syndrome of right wrist ([id number]) Chronic back pain (399582050) COPD (16338075) Diabetes ([id number]) Hypertriglyceridemia (100357754) NH (myocardial infarction) (31202315) ARAMIS (obstructive sleep apnea) (698828830) Osteoarthritis (2198169000) Positive colorectal cancer screening using Cologuard test (2419105545) S/P PTCA (percutaneous transluminal coronary angioplasty) (8714006332) Screening for breast cancer (273638057) Screening for colon cancer (929013350) Tachycardia (3667668) Vitamin D deficiency (56806470) Wound of skin (597335584) MEDICATIONS: Active Inpt Meds: None Active PRN Meds: None One Time Meds: None Active IV Meds: Lactated Ringers Infusion 1,000 mL (LR 1,000 mL) Start: 10/04/21 8:49:00 EDT, Rate: 50 mL/hr, 10/04/21 8:49:00 EDT ALLERGIES: (2) Bee Stings No Known Medication Allergies FAMILY HISTORY: SOCIAL HISTORY: PHYSICAL EXAM: VITALS: FmlvegXiekPFUbtlfUBMmV2LFQ9NeusRc(kg) 10/04 11:4636.6 33397.7 10/04 09:21----99--95-- 10/04 08:55--122/[id number] 24 Hr Tmax: 36.6 at 10/04 11:46 36 Hr Tmax: 36.6 at 10/04 11:46 Vital Signs are the last 5 in the past 48 hours. Weights display the last 5 within 7 days. Initial Wt: 10/04 122.7 kg 270 lb Current Wt: 10/04 122.7 kg 270 lb GENERAL: HEENT: CARDIOVASCULAR: RESPIRATORY: ABDOMEN: EXREMETIES: NEUROLOGICAL: PSYCHIATRIC: LABS: 36hr Labs 10/04 0855 Blood Glucose, Acjcrmscn249F Blood Glucose, Lmgiiydgk258Q DIAGNOSTICS: IMPRESSION: PLAN: History and Physical Update I have examined the patient; reviewed the H&P and there are no changes to the H&P unless noted below. Future Appointments Appointment Date:10/08/2021 03:15:00 PM Scheduled Provider: Location:[facility] Appointment Type:DB Diabetic Individual Visit Appointment Date:01/06/2022 04:00:00 PM Scheduled Provider:JORGE ELISE Location:[facility] Appointment Type:PC OV Follow Up Appointment Date:01/19/2022 03:30:00 PM Scheduled Provider:PIERCE STUART Location:[facility] Appointment Type:CV OV Future Scheduled Tests Laboratory* Complete Blood Count 12/21/[address] [facility] Evaluation + Plan note Future Appointments Appointment Date:07/08/2021 03:30:00 PM Scheduled Provider:JORGE ELISE Location:[facility] Appointment Type:PC OV Appointment Date:01/19/2022 03:30:00 PM Scheduled Provider:PIERCE STUART Location:[facility] Appointment Type:CV OV Future Scheduled Tests Laboratory* Complete Blood Count 12/21/[address] [facility] Evaluation + Plan note Future Appointments Appointment Date:01/06/2022 04:00:00 PM Scheduled Provider:JORGE ELISE Location:[facility] Appointment Type:PC OV Follow Up Appointment Date:01/07/2022 03:00:00 PM Scheduled Provider: Location:[facility] Appointment Type:DB Diabetic Individual Visit Appointment Date:01/19/2022 03:30:00 PM Scheduled Provider:PIERCE STUART Location:[facility] Appointment Type:CV OV [facility] Evaluation + Plan note Future Appointments Appointment Date:04/29/2022 03:00:00 PM Scheduled Provider: Location:[facility] Appointment Type:DB Diabetic Individual Visit (AOH) Appointment Date:07/07/2022 04:00:00 PM Scheduled Provider:JORGE EILSE Location:[facility] Appointment Type:PC OV Appointment Date:07/19/2022 03:30:00 PM Scheduled Provider:PIERCE STUART Location:[facility] Appointment Type:CV OV [facility] Evaluation + Plan note Future Appointments Appointment Date:07/20/2022 03:30:00 PM Scheduled Provider:PIERCE STUART Location:[facility] Appointment Type:CV OV Appointment Date:07/29/2022 03:00:00 PM Scheduled Provider: Location:[facility] Appointment Type:DB Diabetic Individual Visit (AOH) Appointment Date:01/10/2023 04:00:00 PM Scheduled Provider:JORGE ELISE Location:[facility] Appointment Type:PC OV [facility] Evaluation + Plan note Future Appointments Appointment Date:01/10/2023 04:00:00 PM Scheduled Provider:JORGE ELISE Location:[facility] Appointment Type:PC OV Appointment Date:01/20/2023 03:00:00 PM Scheduled Provider: Location:[facility] Appointment Type:DB Diabetic Individual Visit (AOH) [facility] Evaluation + Plan note Future Appointments Appointment Date:03/10/2023 03:00:00 PM Scheduled Provider: Location:[facility] Appointment Type:DB Diabetic Individual Visit (AOH) Appointment Date:07/04/2023 04:00:00 PM Scheduled Provider:JORGE ELISE Location:[facility] Appointment Type:PC OV Future Scheduled Tests Laboratory* A1C Hemoglobin 07/11/23 * Complete Blood Count 07/11/23 * Lipid Profile 07/11/23 * Vitamin D Level 07/11/23 * Complete Metabolic Panel 07/11/[address] [facility] Hospital course Narrative No data available for this section [facility] Hospital Discharge instructions No data available for this section [facility] Progress note No data available for this section [facility] Summary Purpose Family History No Family History Records Found Advance Directives No Advanced Directives Records Found Additional Source Comments Care Team (unrecognized sect ion and content) Personnel Name: JORGE ELISE APRN-NEVIN Address: [address] Care Team Personnel Name: JORGE ELISE APRN-FLYING INSTRUCTOR Position: P4 Advanced Addictions Counselor Member Role: Primary Care Physician Address: Address: [address] [place] [address]- Care Team Related Persons Name: IAN PAUL Care Team Personnel Name: JORGE ELISE APRN-FLYING INSTRUCTOR Position: P4 Advanced Addictions Counselor Member Role: Primary Care Physician Address: Address: [address] Care Team Related Persons Name: IAN PAUL Care Team Personnel Name: JORGE ELISE APRN-FLYING INSTRUCTOR Position: P4 Advanced Addictions Counselor Member Role: Primary Care Physician Address: Address: [address] [place] [address]- [place] Care Team Related Persons Name: IAN PAUL Care Team (unrecognized sect ion and content) Care Team Personnel Name: JORGE ELISE Position: P4 Advanced Practice Nurse Med Service: Employed Provider Member Role: Primary Care Physician Address: Address: [address] [place] [address] Care Team Related Persons Name: IAN PAUL Care Team Personnel Name: JORGE ELISE Position: P4 Advanced Practice Nurse Member Role: Primary Care Physician Address: Address: [address] [place] [address] Care Team Related Persons Name: IAN PAUL INFORMATION SOURCE (unrecogn ized section and content) FOR RECORDS PERTAINING TO PATIENTS WHO ARE OR HAVE BEEN ENROLLED IN A CHEMICAL DEPENDENCY/SUBSTANCEABUSE PROGRAM, SOME INFORMATION MAY BE OMITTED. This clinical summary was aggregated from multiple sources. Caution should be exercised in using it in the provision of clinical care. This summary normalizes information from multiple sources, and as a consequence, information in this document may materially change the coding, format and clinical context of patient data. In addition, data may be omitted in some cases. CLINICAL DECISIONS SHOULD BE BASED ON THE PRIMARY CLINICAL RECORDS. [employer] provides no warranty or guarantee of the accuracy or completeness of information in this document.
== END | disposition home or self-care (01) ==
PROVIDERS: PCP Nurse Practitioner Primary Care; Referring Provider Internal Medicine Pulmonary Disease; Visit Provider Internal Medicine Pulmonary Disease
DX: Z12.2 Encounter for screening for malignant neoplasm of respiratory organs (principal); Z87.891 Personal history of nicotine dependence
CPT/HCPCS: 71271

== ENCOUNTER → 2024-06-17 | Outpatient (CLI) | payer OTHER, SELFPAY ==
--- NOTE | 2024-06-17 15:52 | CT_ITS ---
PROCEDURE: LOW DOSE CT LUNG SCREENING REASON FOR EXAM: Lung cancer screening. Personal history of nicotine dependence TECHNIQUE: Contiguous unenhanced axial CT images were obtained through the chest. Sagittal and coronal reformats were created. COMPARISON: 06/16/2023 FINDINGS: Bones/soft tissues: Bones are osteopenic with degenerative changes in the spine. Upper abdomen: Included upper abdominal structures grossly unremarkable, although evaluation is significantly limited on this study. Mediastinum: Evaluation of the hilar/vascular/mediastinal structures is limited due to lack of intravenous contrast heart is not enlarged. No sizable pericardial effusion. Moderate coronary artery calcifications. No thoracic adenopathy. Unremarkable thyroid and breast tissue. Central airway clear. Lungs: Lungs are emphysematous. No focal airspace consolidation, pneumothorax, or pleural effusion. 7 mm calcified granuloma medial inferior right lower lobe unchanged. Minimal areas of scarring or subsegmental atelectasis in the upper lobes. No concerning pulmonary parenchymal nodule. CT/Low Dose CT Lung Screening IMPRESSION: 1. BASED ON THE ACR LUNG RADS FOR THE MOST SUSPICIOUS NODULE (IF ANY) DESCRIBE D IN THIS REPORT, THE OVERALL LUNG RADS SCORE IS 1. Emphysema. No thoracic adenopathy. 1 - NEGATIVE. RECOMMEND 12-MONTH SCREENING LDCT.. 2. SMOKING CESSATION COUNSELING IS RECOMMENDED IF THE PATIENT IS STILL SMOKING . 3. OTHER SIGNIFICANT FINDINGSNone. One or more dose reduction techniques were used (e.g., Automated exposure contr ol, adjustment of the mA and/or kV according to patient size, use of iterative reconstruction technique). The following information is provided for reference:Lung-RADS 2021 Assessment C ategories. Additional information involving Lung-RADS is available at www.acr.org. 0-INCOMPLETE 1-NEGATIVE:No nodules or definitely benign nodules. Complete, central, popcorn , or centric ring calcifications OR fat containing 2-BENIGN APPEARANCE (based on imaging features or indolent behavior). Juxtaple ural nodule: < 10mm AND solid; smooth margins; oval, entiform, or triangular shape Solid nodule: <6mm at baseline or new< 4mm Part solid Nodule: < 6mm total mean diameter at baseline Nonsolid nodule:(GGN) < 30mm OR >=30mm stable or slowly growing Airway nodule, subsegmental at baseline, new, or stable Category 3 nodule stabl e or decreased in size at 6-month follow-up CT or Category 3 or 4A nodules that resolve on follow-up OR category 4B findings prov en to be benign following diagnotic work up. 3 - Probably Benign (Based on imaging features or behavior) Solid Nodule: >= 6 to <8mm at baseline OR new 4 to <6mm Part-solid nodule: >= 6mm toal mean diam. with solid component <6mm at baseline OR new < 6mm total mean diam. Non-solid nodule: GGN >= 30mm at baseline or new Atypical pulmonary cyst: Growing cystic component (mean diam.) of thick-walled cyst Category 4A nodule stable or decreased in size at 3-month follow-up CT (excl.ai rway). 4A - Suspicious Solid nodule: >=8 to < 15mm at baseline OR growing < 8mm OR new 6 to < 8mm Part solid nodule: >= 6mm total mean diam. w/ solid component >=6mm to < 8mm at baseline OR new or growing < 4mm solid component Airway nodule, segmental or more proximal at baseline or new Atypical pulmonary cyst: Thick-walled OR multilocular at baseline OR becomes mu ltilocular 4B - Very Suspicious Airway nodule, segmental or more proximal, and stable or growing Solid nodule: >= 15mm at baseline OR new or growing >= 8mm Part solid nodule: Solid component >= 8mm OR new or growing >= 4mm solid compon ent Atypical pulmonary cyst: Thick-walled with growing wall thickness/nodularity OR Growing multilocular (mean diam.) OR Multilocular with increased loculation or new/increased opacity Slow-growing solid or part solid nodule w/ growth over multiple screening exams 4X - Very Suspicious Category 3 or 4 nodules with additional features that increase the suspicion fo r lung cancer. S - Clinically Significant or potentially significant findings (non-lung cancer ) [facility]
== END | disposition home or self-care (01) ==
LOC: CT 15:49
PROVIDERS: PCP Nurse Practitioner Primary Care; Referring Provider Internal Medicine Pulmonary Disease; Visit Provider Internal Medicine Pulmonary Disease
DX: Z12.2 Encounter for screening for malignant neoplasm of respiratory organs (principal); Z87.891 Personal history of nicotine dependence
CPT/HCPCS: 71271

== ENCOUNTER → 2024-12-30 | Outpatient (CLI) | payer OTHER, SELFPAY | END | disposition home or self-care (01) | LOC: LABSPEC 03-04 14:52 | PROVIDERS: PCP Nurse Practitioner Primary Care; Visit Provider Podiatrist | DX: L97.223 Non-pressure chronic ulcer of left calf with necrosis of muscle (principal) | CPT/HCPCS: 87070; 87075; 87077; 87186; 87205 ==

== ENCOUNTER → 2025-01-14 | Outpatient (CLI) | payer OTHER, SELFPAY ==
--- NOTE | 2025-01-14 14:00 | ART_ITS ---
Reason For Study Reason For Study: PVD Procedure A bilateral lower extremity continuous wave Doppler with analog waveform analysis,segmental pressures,and ankle brachial indexes without exercise. Left Segmental Pressures Left brachial= 138mmHg. Left posterior tibial artery = 144mmHg. Left dorsalis pedis artery = 143mmHg. Left digit = 69 mmHg. The left dorsalis pedis waveforms are triphasic. The left posterior tibial artery waveforms are triphasic. Right Segmental Pressures Right brachial= 136mmHg. Right posterior tibial artery = 163mmHg. Right dorsalis pedis artery = 153mmHg. Right digit = 127 mmHg. The right dorsalis pedis waveforms are triphasic. The right posterior tibial artery waveforms are triphasic. Indices The right ankle brachial index by the dorsalis pedis is 1.11. The right ankle brachial index by the posterior tibial artery is 1.18. The right digital-brachial index is 0.92. The left ankle brachial index by the dorsalis pedis is 1.04. The left ankle brachial index by the posterior tibial artery is 1.04. The left digital-brachial index is 0.50. VL/Lower Ext Art Exam w/o Exercis Interpretation Summary Triphasic Doppler waveforms are noted at ankle level bilaterally. Pulse-volume recordings appear diminished at digital level on the left, but satisfactory at all other levels bilaterally. Resting an kle-brachial indices are normal bilaterally. The right digital-brachial index is normal. The left digital-brach ial index is mildly/moderately diminished. Arterial flow appears normal at ankle level bilaterally, and at digital level o n the right. There is evidence of mild/moderate arterial occlusive disease at digital level on the left. Ordering Physician: Tian Kennedy Referring Physician: Liliana Martinez Performed By: Marilia Alonso RVT
--- NOTE | 2025-01-14 14:00 | VDLE_ITS ---
Reason For Study Reason For Study: Left leg ulcer RIGHT LEFT CFV is compressible, spontaneous, phasic, competent CFV is compressible, spontaneous, phasic, competent, and demonstrates normal augmentation. and demonstrates normal augmentation. FV is compressible, spontaneous, phasic, competent FV is compressible, spontaneous, phasic, competent and demonstrates normal augmentation. and demonstrates normal augmentation. POP V is compressible, spontaneous, phasic, competent POP V is compressible, spontaneous, phasic, competent and demonstrates normal augmentation. and demonstrates normal augmentation. T/P Trunk is compressible. T/P Trunk is compressible. PTV is compressible. PTV is compressible. RT PerV is compressible. LT PerV is compressible. SFJ is competent and measures 0.68 cm. SFJ is competent and measures 0.78 cm. GSV proximal thigh measures 0.32 x 0.33 cm. GSV proximal thigh measures 0.41 x 0.38 cm. GSV at knee measures 0.20 x 0.19 cm. GSV at knee measures 0.38 x 0.37 cm. GSV is competent throughout. GSV INCOMPETENT throughout for greater than 0.5 SSV mid calf is competent and measures 0.25 x 0.27 seconds. cm. ASV from junction is INCOMPETENT for greater than 0.5 Procedure seconds and measures 0.46 x 0.44 cm. This is a venous duplex using B-mode, color flow and INCOMPETENT perforators noted 18 cm and 8 cm above spectral Doppler. medial malleolus. Exam performed in department. SSV mid calf is competent and measures 0.34 x 0.37 Patient was scanned in reverse Trendelenburg position cm. during reflux assessment. VL/Venous Duplex US - Akhil Extrem Interpretation Summary Deep veins of the lower extremities are bilaterally patent and compressible seg mentally. There is no evidence of deep vein thrombosis on either side. Valvular competence appears intact within the p roximal deep venous systems bilaterally. The great saphenous veins appear bilaterally patent and compressible segmentall y. Sapheno-femoral junctions are bilaterally competent . The right great saphenous vein appears segmentally comp etent. The left great saphenous vein appears segmentally incompetent. Small saphenous veins are patent and competent bilaterally. The accessory saphenous vein at the left sapheno-femoral junction is incompetent. Incompetent perforato r veins are noted in the left calf, located 8 centimeters and 18 centimeters proximal to the left medial malleolus. Ordering Physician: Tian Kennedy Referring Physician: Liliana Martinez Performed By: Marilia Alonso RVT
== END | disposition home or self-care (01) ==
LOC: CVS 13:55
PROVIDERS: PCP Nurse Practitioner Primary Care; Referring Provider Podiatrist; Visit Provider Podiatrist
DX: I73.89 Other specified peripheral vascular diseases (principal); L97.223 Non-pressure chronic ulcer of left calf with necrosis of muscle; I87.2 Venous insufficiency (chronic) (peripheral)
CPT/HCPCS: 93923; 93970